=== PATIENT | male | born 1955 | race Caucasian/White ===

== ENCOUNTER → 2020-07-01 07:54 | Outpatient (CLI) | payer MEDICARE, SELFPAY ==
[2020-06-18 11:37] VITALS: BMI 42.9
[2020-07-01 10:02] LABS: AST(SGOT) 12 U/L (15-37); Alanine Aminotransfer ALT/SGPT 31 U/L (16-61); Albumin, Serum 4.2 g/dL (3.2-5.0); Alkaline Phosphatase 83 U/L (45-117); Bilirubin, Direct 0.13 mg/dL (0.00-0.30); Cholesterol 138 mg/dL (200); High Density Lipoprotein 35 mg/dL; Protein, Total 8.2 g/dL (6.4-8.2); Triglycerides 199 mg/dL; Very Low Density Lipoprotein 40 mg/dL (5-40)
== END ==
PROVIDERS: PCP Family Medicine; Referring Provider Internal Medicine Cardiovascular Disease; Visit Provider Internal Medicine Cardiovascular Disease
DX: E78.00 Pure hypercholesterolemia, unspecified (principal)
CPT/HCPCS: 36415; 80061; 80076

== ENCOUNTER → 2020-08-12 09:39 | Outpatient (CLI) | payer MEDICARE, OTHER, SELFPAY ==
[2020-06-18 11:37] VITALS: BMI 42.9
[2020-08-12 10:35] LABS: Absolute Lymphocyte Count 3.99 X10^3/uL (0.83-4.51); Absolute Neutrophil Count 6.8 X10^3/uL (2.0-7.7); Basophil# 0.08 X10^3/uL; Basophil% 0.7 % (0-1); Eosinophil# 0.26 X10^3/uL; Eosinophils% 2.2 % (0-5); Hematocrit 50.5 % (40-54); Hemoglobin 15.8 g/dL (13.0-16.5); Lymphocyte # 3.99 X10^3/ul (0.83-4.51); Lymphocyte % 33.6 % (19-41); Mean Corp Hgb Conc 31.3 g/dL (32-36); Mean Corpuscular Hgb 30.4 pg (27.0-32.0); Mean Corpuscular Volume 97.1 fL (80-94); Mean Platelet Vol. 10.8 fl (6.2-12.0); Monocyte# 0.72 X10^3/uL; Monocyte% 6.1 % (0-10); NRBC Flagged by Analyzer 0 % (0-5); Neutrophil # 6.78 X10^3/uL (2.7-7.7); Neutrophil % 57.1 % (47-70); Platelet Count 242 K/mm3 (150-450); RBC Distribution Width SD 51.1 fl (35.1-43.9); White Blood Count 11.9 K/mm3 (4.4-11.0)
[2020-08-12 11:19] LABS: Vitamin B12 577 pg/mL (211-911)
== END ==
PROVIDERS: PCP Family Medicine; Referring Provider Family Medicine; Visit Provider Family Medicine
DX: E53.8 Deficiency of other specified B group vitamins (principal)
CPT/HCPCS: 36415; 82607; 82746; 85025

== ENCOUNTER → 2020-10-08 13:36 | Outpatient (CLI) | payer MEDICARE, OTHER, SELFPAY ==
[2020-06-18 11:37] VITALS: BMI 42.9
--- NOTE | 2020-10-08 13:39 | RAD_ITS ---
STUDY: X-RAY - RIGHT SHOULDER REASON FOR EXAM: Male, 65 years old. Anterior right shoulder pain after falling one months ago TECHNIQUE: 4 view(s) of the shoulder. COMPARISON: None. FINDINGS: There is mild degenerative arthrosis of the glenohumeral articulation. There is minimal widening of the AC joint suggesting a Type I acromioclavicular joint separation. Normal acromion. Normal humeral head and visualized proximal humerus. The soft tissue structures are unremarkable. Normal visualized pulmonary apex. RAD/Shoulder min 2 Views IMPRESSION: Slight widening of the acromioclavicular joint could represent a type I separation. Electronically Signed: Johny Mcclendon MD ([place]) at 15:20 EDT , Service support ,
== END ==
PROVIDERS: PCP Family Medicine; Referring Provider Family Medicine; Visit Provider Family Medicine
DX: M75.51 Bursitis of right shoulder (principal)
CPT/HCPCS: 73030

== ENCOUNTER → 2020-10-29 14:15 | Outpatient (CLI) | payer MEDICARE, OTHER, SELFPAY ==
[2020-06-18 11:37] VITALS: BMI 42.9
[2020-10-29 16:07] LABS: Rheumatoid Factor < 10.0 IU/mL (<15)
[2020-10-29 16:22] LABS: Erythrocyte Sedimentation Rate 56 mm/hr (0-20)
[2020-11-02 07:24] LABS: ANTINUCLEAR ANTIBODIES DIRECT Negative (Negative); CCP IgG Antibodies < 1 units (0-19)
== END ==
PROVIDERS: PCP Family Medicine; Referring Provider Family Medicine; Visit Provider Family Medicine
DX: M25.50 Pain in unspecified joint (principal)
CPT/HCPCS: 36415; 85652; 86038; 86140; 86200; 86431

== ENCOUNTER → 2020-11-25 08:09 | Outpatient (CLI) | payer MEDICARE, OTHER, SELFPAY ==
[2020-06-18 11:37] VITALS: BMI 42.9
[2020-11-25 08:32] LABS: Absolute Lymphocyte Count 4.83 X10^3/uL (0.83-4.51); Absolute Neutrophil Count 5.9 X10^3/uL (2.0-7.7); Basophil# 0.08 X10^3/uL; Basophil% 0.7 % (0-1); Eosinophil# 0.29 X10^3/uL; Eosinophils% 2.5 % (0-5); Hematocrit 46.4 % (40-54); Hemoglobin 14.3 g/dL (13.0-16.5); Lymphocyte # 4.83 X10^3/ul (0.83-4.51); Lymphocyte % 40.9 % (19-41); Mean Corp Hgb Conc 30.8 g/dL (32-36); Mean Corpuscular Hgb 30.8 pg (27.0-32.0); Mean Corpuscular Volume 99.8 fL (80-94); Mean Platelet Vol. 10.6 fl (6.2-12.0); Monocyte# 0.67 X10^3/uL; Monocyte% 5.7 % (0-10); NRBC Flagged by Analyzer 0 % (0-5); Neutrophil % 49.9 % (47-70); Platelet Count 241 K/mm3 (150-450); RBC Distribution Width CV 14.7 % (11.6-14.6); RBC Distribution Width SD 54.1 fl (35.1-43.9); Red Blood Count 4.65 M/mm3 (4.6-6.2); White Blood Count 11.8 K/mm3 (4.4-11.0)
[2020-11-25 08:36] LABS: Erythrocyte Sedimentation Rate 52 mm/hr (0-20)
[2020-11-25 08:51] LABS: AST(SGOT) 13 U/L (15-37); Alanine Aminotransfer ALT/SGPT 23 U/L (16-61); Albumin, Serum 3.9 g/dL (3.2-5.0); Alkaline Phosphatase 93 U/L (45-117); Anion Gap 7 (5-15); BUN 24 mg/dL (7-18); BUN/Creat Ratio 15.3 RATIO (10-20); Calcium,Total 8.6 mg/dL (8.5-10.1); Chloride 105 mmol/L (98-107); Cholesterol 118 mg/dL (200); Creatinine, Serum 1.57 mg/dL (0.70-1.30); EST Glomerular Filtration Rate 47 mL/min (>60); Est Glom Filt Rate - Afr Amer 57 mL/min (>60); Globulin 3.8 g/dL (2.2-4.2); Glucose 148 mg/dL (74-106); High Density Lipoprotein 38 mg/dL; Potassium 4.2 mmol/L (3.5-5.1); Protein, Total 7.7 g/dL (6.4-8.2); Sodium Level 139 mmol/L (136-145); Triglycerides 165 mg/dL; Very Low Density Lipoprotein 33 mg/dL (5-40)
== END ==
PROVIDERS: PCP Family Medicine; Referring Provider Family Medicine; Visit Provider Family Medicine
DX: E11.9 Type 2 diabetes mellitus without complications (principal); I10 Essential (primary) hypertension; E78.5 Hyperlipidemia, unspecified; M25.50 Pain in unspecified joint
CPT/HCPCS: 36415; 80053; 80061; 85025; 85652; 86140

== ENCOUNTER 2020-12-16 13:36 | Emergency (ER) | payer MEDICARE, OTHER, SELFPAY ==
[2020-12-16 13:37] VITALS: BP 148/60; PULSE 74; RESP 16; TEMP 37.6; O2SAT 93; BMI 41.6
[2020-12-16 13:39] VITALS: BP 148/60; PULSE 74; RESP 16; TEMP 37.6; O2SAT 93
--- NOTE | 2020-12-16 13:40 | RAD_ITS ---
STUDY: X-RAY CHEST REASON FOR EXAM: Male, 65 years old. COUGH . Headaches and fever. TECHNIQUE: Single AP portable view of the chest. COMPARISON: None. FINDINGS: There is hyperinflation of the lungs consistent with chronic obstructive lung disease (COPD). There is no demonstrated pleural abnormality. Normal size heart. Calcified hilar lymph nodes. Normal visualized pulmonary arteries. Normal visualized aortic arch and descending thoracic aorta. Normal visualized thoracic spine. Normal visualized ribs, clavicles, and shoulders. There is no demonstrated abnormality of the visualized soft tissue structures of the upper abdomen. RAD/Chest 1 View IMPRESSION: Hyperinflation. The lungs are clear. Electronically Signed: Josh Alonso MD at 14:11 EDT , Service support ,
--- NOTE | 2020-12-16 16:28 | EDS_ITS ---
HPI HPI - URI History of Present Illness Chief Complaint: Cough Informant: patient Narrative Narrative: Patient is a 65-year-old male with history of COPD, DVT/PE, on Xarelto and coronary artery disease presenting with continued cough and fever. Patient states he woke up feeling short of breath on Monday, 4 days ago. He is continue to have a cough that is productive of yellow sputum. He is not wheezing. He has had body aches, runny nose and subjective fevers. His PCP called him in a prescription for amoxicillin which he states just caused him to have nausea and upset stomach. He denies any change in his bowel habits. He denies any sore throat, congestion or ear pain. Patient came in because his sister that he should get checked out just to be safe. No other complaints at this time. Patient has had his Covid vaccine. ROS [facility] ED Constitutional Constitutional ED: Reports fever(s) and subjective Eyes Eyes: Denies blurry vision or change in vision ENT ENT ED: Reports rhinorrhea; Denies ear pain or sore throat Cardiovascular Cardiovascular: Denies chest pain or palpitations Respiratory/Chest Respiratory/Chest: Reports cough, dyspnea and sputum Gastrointestinal Gastrointestinal: Reports nausea; Denies abdominal pain, diarrhea or vomiting Genitourinary Genitourinary ED: Denies dysuria Musculoskeletal Musculoskeletal: Reports myalgias; Denies arthralgias or neck pain Integumentary Denies rash Neurologic Neurologic: Denies headache(s) or weakness Psychiatric Psychiatric: Denies depression [facility] Medical History (Updated 12/16/20 @ 17:[address] Kristy Díaz, DO) Abnormal laboratory test Atherosclerotic heart disease of [place]o coronary artery without angina pectoris Benign essential HTN BPH (benign prostatic hyperplasia) CAD (coronary artery disease) Diabetic neuropathy DVT (deep venous thrombosis) GERD (gastroesophageal reflux disease) History of left heart catheterization (LHC) (~10/11/11) History of pulmonary embolism HLD (hyperlipidemia) Medical management Presence of stent in coronary artery (~02/09/11) Tobacco dependence in remission Type 2 diabetes mellitus Home Medications escitalopram oxalate 20 mg PO DAILY 01/31/13 [History Last Taken 12/08/14 20 MG] lansoprazole 30 mg PO DAILY 01/31/13 [History Last Taken 12/08/14 30 MG] rosuvastatin 40 mg PO DAILY 10/24/13 [History Last Taken 12/08/14 40 MG] vitamin B complex 1 ea PO DAILY 01/31/13 [History Last Taken 12/08/14 1 EACH] clopidogrel 75 mg PO DAILY #30 05/22/13 [Rx Last Taken 12/08/14 75 MG] amlodipine 10 mg tablet 10 mg PO DAILY 06/16/20 [History Last Taken Unknown] apixaban 5 mg tablet 5 mg PO BID 06/16/20 [History Last Taken Unknown] cyanocobalamin (vitamin B-12) 500 mcg tablet 500 mcg PO DAILY 06/16/20 [History Last Taken Unknown] empagliflozin 10 mg tablet 10 mg PO DAILY 06/16/20 [History Last Taken Unknown] furosemide 40 mg tablet 40 mg PO DAILY 06/16/20 [History Last Taken Unknown] gabapentin 300 mg capsule 300 mg PO .COMPLEX cap 06/16/20 [History Last Taken Unknown] insulin glargine 100 unit/mL (3 mL) subcutaneous pen 20 unit SC QPM ml 06/16/20 [History Last Taken Unknown] insulin lispro 100 unit/mL subcutaneous pen 8 unit SC TID 06/16/20 [History Last Taken Unknown] losartan 50 mg tablet 50 mg PO DAILY 06/16/20 [History Last Taken Unknown] metformin 1,000 mg tablet 1,000 mg PO BID 06/16/20 [History Last Taken Unknown] metoprolol succinate 50 mg tablet,extended release 24 hr 50 mg PO DAILY 06/16/20 [History Last Taken Unknown] tamsulosin 0.4 mg capsule 0.4 mg PO DAILY 06/16/20 [History Last Taken Unknown] albuterol sulfate [Ventolin HFA] 1 - 2 puff INHALATION Q4H PRN PRN #1 inh 12/16/20 [Rx Last Taken Unknown] benzonatate [Tessalon Perles] 100 mg PO TID PRN #20 cap 12/16/20 [Rx Last Taken Unknown] ondansetron HCl [Zofran] 4 mg PO Q8H PRN #14 tab 12/16/20 [Rx Last Taken Unknown] prednisone 40 mg PO DAILY #10 tab 12/16/20 [Rx Last Taken Unknown] Allergy/AdvReac Type Severity Reaction Status Date / Time diphenhydramine HCl Allergy Hives Verified 12/16/20 13:40 [From [facility]] Family History Other CVA (cerebral vascular accident) Heart disease Hypertension Myocardial infarction Surgical History History of bilateral cataract extraction History of bilateral knee replacement Hx of LASIK IVC filter removal Presence of coronary angioplasty implant and graft (~02/09/11) Social History Smoking Status: Former smoker alcohol intake: never substance use type: does not use caffeine: Yes Type: coffee Number of servings: 4 EXAM Physical Exam Const Vital Signs: 12/16/20 13:37 12/16/20 13:39 12/16/20 15:57 Temperature 99.6 F H 99.6 F H Temperature Source Temporal Temporal Pulse Rate 74 74 Respiratory Rate 16 16 Respiratory Effort Normal Respiratory Depth Normal Respiratory Pattern Normal Blood Pressure 148/60 H 148/60 H Blood Pressure Mean 89 89 Pulse Ox 93 93 Oxygen Delivery Method Room Air Room Air Positive well nourished and well developed General Appearance ED: well developed HEENT Reports moist mucous membranes normocephalic Tympanic Membrane ED: Yes TM's normal bilaterally Tympanic Membrane: TM's normal bilaterally Mouth ED: Yes moist mucous membranes normal Eyes PERRL and EOMs intact bilaterally General Eye ED: Yes normal appearance of both eyes Pupil: PERRL Neck supple and no JVD Lymph Lymphatic: no lymphadenopathy noted Chest Wall inspection of chest normal and palpation of chest normal Resp normal respiratory effort and normal air movement Auscultation: diminished lung sounds bilateral lower; Negative for rhonchi or wheezes Cardio regular rate, regular rhythm and no murmurs Rate: regular rate Rhythm: regular rhythm Peripheral Pulses: pulses 2+ throughout GI non-tender and non-distended Palpation: soft Back/Spine no CVA tenderness and normal to inspection Extremity normal to inspection and full ROM Neuro oriented x3, moves all extremities and no focal motor deficits Sensorium / Orientation: alert Psych mental status grossly normal and thought process normal Skin no rashes or lesions noted and no petechiae Rashes: no rashes MDM MDM MDM Narrative Medical decision making narrative: Patient evaluated for cough low-grade fever. He is already on amoxicillin. His Covid test is negative. He is well- appearing. Patient is ambulated to make sure he is not hypoxic. Suspect he has bronchitis secondary to viral illness. Given that he had a negative Covid I will presume it is another virus. He is otherwise well-appearing and I do not think blood work is indicated. Patient be started on a course of steroids and given Zofran so he can better tolerate his antibiotics. Lab Data Attestation: I reviewed the patient's lab results. Radiography Chest X-Ray - ED: 1 View, Read by ED Physician, Read by Radiologist and - (Hyperinflation, no acute infiltrate) Diagnostic Testing: Radiology Impression Chest X-Ray 12/16/20 13:40 IMPRESSION: Hyperinflation. The lungs are clear. Electronically Signed: Josh Alonso MD at 14:11 EDT , Service support , Discharge Plan Triage Chief Complaint: Cough ED Provider: Kristy Díaz Dx/Rx/DC Orders Clinical Impression: Bronchitis Instructions: ED Bronchitis with Wheezing (Adult) Prescriptions: New prednisone 20 mg tablet 40 mg PO DAILY Qty: 10 RF: 0 albuterol sulfate [Ventolin HFA] 90 mcg/actuation HFA aerosol inhaler 1 - 2 puff inhalation Q4H PRN PRN (Reason: Wheezing or cough) Qty: 1 RF: 0 benzonatate [Tessalon Perles] 100 mg capsule 100 mg PO TID PRN (Reason: cough) Qty: 20 RF: 0 ondansetron HCl [Zofran] 4 mg tablet 4 mg PO Q8H PRN (Reason: nausea and vomiting) Qty: 14 RF: 0 No Action Eliquis 5 mg tablet 5 mg PO BID RF: 0 tamsulosin 0.4 mg capsule 0.4 mg PO DAILY RF: 0 furosemide 40 mg tablet 40 mg PO DAILY RF: 0 gabapentin 300 mg capsule 300 mg PO .COMPLEX RF: 0 insulin lispro [Humalog KwikPen Insulin] 100 unit/mL insulin pen 8 unit SC TID RF: 0 Jardiance 10 mg tablet 10 mg PO DAILY RF: 0 Lantus Solostar U-100 Insulin 100 unit/mL (3 mL) insulin pen 20 unit SC QPM RF: 0 losartan 50 mg tablet 50 mg PO DAILY RF: 0 metoprolol succinate 50 mg tablet extended release 24 hr 50 mg PO DAILY RF: 0 amlodipine 10 mg tablet 10 mg PO DAILY RF: 0 metformin 1,000 mg tablet 1,000 mg PO BID RF: 0 cyanocobalamin (vitamin B-12) 500 mcg tablet 500 mcg PO DAILY RF: 0 lansoprazole 30 MG capsule 30 mg PO DAILY RF: 0 vitamin B complex 1 EACH capsule 1 ea PO DAILY RF: 0 escitalopram oxalate 20 MG tablet 20 mg PO DAILY RF: 0 rosuvastatin 40 MG tablet 40 mg PO DAILY RF: 0 clopidogrel 75 MG tablet 75 mg PO DAILY Qty: 30 RF: 0 Primary Care Provider: Fatoumata Red Referrals: Fatoumata Red MD [Primary Care Provider] - Disposition Disposition: Home, Self Care Discharge Date/Time: 12/16/20 17:42
[2020-12-16 17:14] VITALS: O2SAT 93
== END 2020-12-16 17:42 | disposition home or self-care (01) ==
PROVIDERS: Emergency Provider Emergency Medicine; PCP Family Medicine
DX: J40 Bronchitis, not specified as acute or chronic (principal); Z20.822 Contact with and (suspected) exposure to COVID-19; J44.9 Chronic obstructive pulmonary disease, unspecified; I25.10 Atherosclerotic heart disease of native coronary artery without angina pectoris; E11.9 Type 2 diabetes mellitus without complications; I10 Essential (primary) hypertension; E78.5 Hyperlipidemia, unspecified; K21.9 Gastro-esophageal reflux disease without esophagitis; N40.0 Benign prostatic hyperplasia without lower urinary tract symptoms; Z79.01 Long term (current) use of anticoagulants; Z79.02 Long term (current) use of antithrombotics/antiplatelets; Z79.4 Long term (current) use of insulin; Z79.52 Long term (current) use of systemic steroids; Z79.899 Other long term (current) drug therapy; Z86.718 Personal history of other venous thrombosis and embolism; Z86.711 Personal history of pulmonary embolism; Z87.891 Personal history of nicotine dependence; Z96.653 Presence of artificial knee joint, bilateral; Z95.5 Presence of coronary angioplasty implant and graft
CPT/HCPCS: 71045; 87426; 99282

== ENCOUNTER 2021-06-23 07:34 | Outpatient (CLI) | payer BC, SELFPAY ==
[2021-06-23] VITALS (9 sets, daily range): BP systolic 116–188; BP diastolic 49–78; PULSE 59–68; RESP 17–21; TEMP 36.6; O2SAT 91–98; BMI 41.6
--- NOTE | 2021-06-23 | IMM_PTH ---
PATIENT: SHELBI GARCIA LOC: CT U#:[id number] AGE/SX: 66/M ROOM: RE06/23/[address]: Dr. Jp Denis DO : 1955 BED: DIS: 06/23/2021 SPEC #: [id number] RECD: 06/24/21 13:19 STATUS: CARLIE RELauren #: [id number] DAY: 06/23/21 00:[address]: Jp Denis DEPT: IMMUNOHISTOCHEMISTRY RECD BY: Angie Ann ENTERED: 06/24/21 13:22 SP TYPE: IMMUNO OTHR DR: Dr. Fatoumata Red MD Tissues: A - Bone marrow of iliac crest Procedures: BCL-2 (add) CD10 (add) CD138 (add) CD20 (add) CD3 (add) CD43 (add) CD45 (add) CD5 (add) CD79A (add) KAPPA (add) LAMBDA (add) Pankeratin (initial) PHYSICIAN & [address] [address] SPECIMEN INFORMATION: Tissue Source: A ? Bone marrow biopsy core Clinical Info: IgA lambda monoclonal gammopathy Specimen Number: [id number] CPT code: 36317, 69034 x11 METHODOLOGY: Deparaffinized sections of prefer/formalin-fixed tissue or PAP/DQ stained slides are incubated with monoclonal/polyclonal antibodies/oligonucleotide probes. Localization is made via biotin free immunoperoxidase method. Appropriate controls are performed and reacted as expected. Results on target cell population are indicated in the following table: RESULTS: ANTIBODY / CLONE RESULT Block A AE1-3 (AE1/AE3/PCK26) negative CD3 (PS1) negative CD5 (SP10) negative CD10 (56C6) negative CD20 (L26) negative CD43 (L60) positive CD45 (RP2/18) negative CD79a (11E3) negative CD138 (B-A38) positive [place] (polyclonal) negative Lambda (polyclonal) positive BCL-2 (bcl-2/100/D5) negative These tests were developed and their performance characteristics determined by [facility]. They may not have been cleared or approved by the U.S. Food and Drug Administration. The FDA has determined that such clearance or approval is not necessary. The above immunohistochemical/dualISH markers are ordered and reviewed by the Pathologist. INTERPRETATION: A. Bone marrow biopsy core: Increased lambda restricted plasma cell population consistent with plasma cell neoplasm. AM:reina 06/28/2021 Case has been reviewed in consultation with Dr. Cazares who concurs with the above diagnosis. IDC:SJ
[2021-06-23 07:55] LABS: Platelet Count 217 K/mm3 (150-450)
[2021-06-23 08:07] LABS: International Normalized Ratio 0.9; Prothrombin Time (Protime)PT. 11.9 SECONDS (11.7-14.9)
[2021-06-23 08:08] LABS: Partial Thromboplast Time 27.9 Seconds (24.1-36.2)
--- NOTE | 2021-06-23 08:09 | CT_ITS ---
PROCEDURE: CT-guided percutaneous bone marrow biopsy/aspiration DATE OF EXAMINATION: 06/23/2021 INDICATION: Male, 66 years old presenting with concerns for monoclonal gammopathy. PHYSICIAN: Dr. Yehuda Lomeli RADIATION DOSAGE (If Supplied By Facility): SMART step accumulated DLP = ( 474.68 ) mGycm, total exam DLP = ( 1059.92 ) mGycm CONSENT: The risks, benefits and alternatives to the procedure were explained to the patient, and the patient agreed to the procedure and signed the consent. SEDATION: 1 mg VERSED. 50 mcg of FENTANYL. LIDOCAINE: 8 cc of 2% LIDOCAINE was used for local anesthesia. STERILE BARRIER TECHNIQUE: The following sterile barrier precautions were used during the procedure: hand hygiene; use of IODINE and 2% chlorhexidine aseptic; use of a mask, sterile gloves, and a large sterile sheet. PROCEDURE/TECHNIQUE: (All elements of maximal sterile barrier technique followed.) The risks, benefits, and alternatives to the procedure were explained to patient, and the patient agreed to the procedure and signed a consent form for the procedure. A timeout was performed to confirm the patient''s identity, the type of procedure, to be performed and the site of entry. English Professor CT was performed and a site in the right ischial tuberosity was selected for needle entry. The skin surface was marked. The surface was then sterilely prepped. Local anesthetic with LIDOCAINE was administered with a 25-gauge needle. Deeper anesthetic to the cortex of the bone with was LIDOCAINE was administered with a 25-gauge spinal needle. A skin devyn was then made using a scalpel. An 11-gauge bone marrow biopsy needle was then guided to the right initial tuberosity utilizing CT guidance. The needle was advanced into the bone marrow and the inner stylet was removed. 3 to 4 cc of blood was aspirated. Additional 3 to 4 cc of blood was aspirated into a syringe containing approximately 2 cc of HEPARIN. The biopsy trocar was then advanced and withdrawn. Adequate core sample was not obtained on first attempt so the needle was repositioned in the right initial tuberosity. Second attempt yielded adequate 11-gauge core sample. Pressure was applied to the skin surface and dressing was applied. There were no complications. The patient tolerated the procedure well and was sent to recovery bay for observation. SAMPLES: A total of 7-8 cc of blood was aspirated from the bone marrow. 11-gauge core sample was also obtained. Adequacy of samples was confirmed by on-site pathology. COMPLICATIONS: None. BLOOD LOSS: None. SEDATION START TIME/STOP TIME: 9:03 AM. 10:[address]/Biopsy/Inj or Needle Placement IMPRESSION: Successful percutaneous CT-guided bone marrow biopsy. Electronically Signed: Yehuda Lomeli, at 11:17 EDT ,
--- NOTE | 2021-06-23 09:00 | BMB_PTH ---
PATIENT: SHELBI GARCIA LOC: CT U#:[id number] AGE/SX: 66/M ROOM: RE06/23/[address]: Dr. Jp Denis DO : 1955 BED: DIS: 06/23/2021 SPEC #: [id number] RECD: 06/23/21 11:26 STATUS: CARLIE YESSENIA #: [id number] DAY: 06/23/21 09:[address]: Jp Denis DEPT: BONE MARROW RECD BY: Leslye Villatoro ENTERED: 06/23/21 11:26 SP TYPE: BMB NATASHA DR: Dr. Fatoumata Red MD Tissues: A - Bone marrow, NOS B - Bone marrow, NOS C - Bone marrow, NOS Procedures: Decalcification bone/plaque Bone Marrow Aspiration Bone Marrow Core Biopsy Iron Stain Bone Marrow HEADER OPERATION: Bone marrow biopsy and aspiration PRE-OP DIAGNOSIS: IgA lambda monoclonal gammopathy TISSUE SUBMITTED: A - Core, B - Clot, C - Smears, and send outs (flow, cytogenetics and FISH) BONE MARROW DIAGNOSIS Bone marrow core, clot and aspirate smears: Clonal plasma cell population consistent with plasma cell neoplasm. See comment. AM:reina 06/28/2021 COMMENT Flow cytometry analysis reveals clonal plasma cell population comprising approximately 15% of the cellular component. The neoplasm is lambda restricted and IgA positive. The report is viewable in EMR. Immunohistochemistry ([id number]) supports the above diagnosis. Case has been reviewed in consultation with Dr. Cazares who concurs with the above diagnosis. IDC:SJ BONE MARROW STUDY Slides are reviewed. CBC DATE: Not submitted PERIPHERAL SMEAR: Submitted. RBC: Normochromic WBC: Normomorphic PLTS: Adequate BONE MARROW ASPIRATE DIFFERENTIAL: 200 cell count. Blasts % (normal 0-2): 2 Promyelocytes % (normal 1-5): 2 Myelocytes and metamyelocytes % (normal 17-41): 20 Bands and Segs % (normal 15-32): 25 Eos % (normal 1-6): 2 Basos % (normal 0-1): 1 Monocytes % (normal 0-4): 1 Erythroid Precursors % (normal 17-35): 24 Lymphocytes % (normal 7-13): 12 Plasma Cells % (normal 0-2): 11 ASPIRATE FINDINGS: Site: Not specified Paucispicular Cellular M/E ratio: 2.2 (Normal 1.5 - 4.0) Megakaryocytes: Adequate Erythropoiesis: Normoblastic Granulopoiesis: Progressive Other findings: Increased mature plasma cells CORE BIOPSY FINDINGS: Site: Not specified Adequacy: Adequate Cellularity %: 45% M/E ratio: Within normal limits Megakaryocytes: Adequate Bony trabeculae: Unremarkable Granulomas: Not present Lymphoid aggregate(s): Not present Atypical infiltrate(s): Increased mature plasma cells ASPIRATE CLOT FINDINGS: Site: Not specified Marrow Particles: Many Cellularity %: 45-50% M/E ratio: Within normal limits Megakaryocytes: Adequate Granuloma(s): Not present Lymphoid aggregate(s): Not present Atypical infiltrate(s): Increased mature plasma cells SPECIAL STAINS (with matched controls): Iron: Stainable iron present (4/4) without ring sideroblasts Reticulin: Within normal limits PAS: Highlights myeloid elements and megakaryocytes. BONE MARROW GROSS A - Received is a container labeled with the patient's name and designated bone marrow. The specimen consists of a cylindrical fragment of wahl bone measuring 1.2 x 0.2 x 0.2 cm. The specimen is totally submitted in one cassette after decalcification. B - Received labeled with the patient's name and designated bone marrow is a specimen that consists of approximately 5 ml of reddish fluid that on filtration yields multiple irregular fragments of red-wahl soft tissue measuring in aggregate 2 x 2 x 0.2 cm. The specimen is totally submitted in one cassette. C - Also received are 8 unstained and 1 peripheral stained slides. The unstained slides are submitted for appropriate staining. Also received is one green top tube which is sent to our reference lab for flow, cytogenetics and FISH. / AM:reina 06/23/2021 TC:0 CPT: 00383, 59289, 42597 x2, 91736 x3, 09587 ADDENDUM ADDENDUM ADDENDUM ADDENDUM ADDENDUM ADDENDUM ADDENDUM ADDENDUM ADDENDUM ADDENDUM ADDENDUM ADDENDUM ADDENDUM ADDENDUM ADDENDUM ADDENDUM ADDENDUM ADDENDUM ADDENDUM 07/07/2021 09:36 ADDENDUM 07/07/2021 09:36 ADDENDUM 07/07/2021 09:36 ADDENDUM 07/07/2021 09:36 ADDENDUM 07/07/2021 09:36 FLUORESCENCE IN-SITU HYBRIDIZATION (FISH) FROM [facility] MYELOMA PROGNOSIS INTERPRETATION: 1. No evidence of IGH-MAF [translocation t(14;16)] gene rearrangement. 2. No evidence of RB1 monosomy (13q14 deletion). 3. No evidence of CCND1-IGH [translocation t(11;14)] gene rearrangement, and no evidence for trisomy 11 or gain of 11q. 4. No evidence of p53 (17p13) deletion or amplification. 5. No evidence of FGFR3-IGH [translocation t(4;14)] gene rearrangement. 6. Negative for 1q21/CKS1B gain. CYTOGENETICS REPORT FROM [facility] INTERPRETATION: A normal male karyotype was observed in twenty metaphases analyzed. Karyotype: 46,XY[22] Please see complete report in e-chart or EMR
[2021-06-23] MEDS: Midazolam 2 MG/2 ML Syringe IV (09:03)
[2021-06-23] MEDS: Lidocaine 2% (20 ml mdv) 20 ML Vial INFILT (09:03)
[2021-06-23] MEDS: fentaNYL 100 MCG/2 ML Ampul IV (09:04)
[2021-06-23] MEDS: 0.9% Saline Lock 10 ML Syringe IV (09:07)
== END 2021-06-23 23:59 | disposition home or self-care (01) ==
PROVIDERS: PCP Family Medicine; Referring Provider Internal Medicine Hematology & Oncology; Visit Provider Internal Medicine Hematology & Oncology
DX: D47.2 Monoclonal gammopathy (principal); M06.9 Rheumatoid arthritis, unspecified; I48.91 Unspecified atrial fibrillation; E11.9 Type 2 diabetes mellitus without complications; N18.9 Chronic kidney disease, unspecified; I25.10 Atherosclerotic heart disease of native coronary artery without angina pectoris; Z79.82 Long term (current) use of aspirin; Z79.02 Long term (current) use of antithrombotics/antiplatelets; Z79.899 Other long term (current) drug therapy; I25.2 Old myocardial infarction; Z86.718 Personal history of other venous thrombosis and embolism; Z95.5 Presence of coronary angioplasty implant and graft
CPT/HCPCS: 38222; 36415; 77012; 85049; 85610; 85730; 88305; 88311; 88313; 88341; 88342; 99156; 99157; J7040; A4216

== ENCOUNTER 2021-07-15 10:43 | Outpatient (CLI) | payer MEDICARE, SELFPAY ==
[2021-07-15 12:27] LABS: AST(SGOT) 48 U/L (15-37); Alanine Aminotransfer ALT/SGPT 142 U/L (16-61); Albumin, Serum 3.7 g/dL (3.2-5.0); Alkaline Phosphatase 92 U/L (45-117); Bilirubin, Direct 0.18 mg/dL (0.00-0.30); Cholesterol 63 mg/dL (200); Creatinine, Serum 1.83 mg/dL (0.70-1.30); EST Glomerular Filtration Rate 39 mL/min (>60); Est Glom Filt Rate - Afr Amer 48 mL/min (>60); Globulin 3.8 g/dL (2.2-4.2); High Density Lipoprotein 30 mg/dL; Protein, Total 7.5 g/dL (6.4-8.2); Triglycerides 93 mg/dL; Very Low Density Lipoprotein 19 mg/dL (5-40)
== END 2021-07-15 23:59 | disposition home or self-care (01) ==
PROVIDERS: Internal Medicine Cardiovascular Disease; PCP Family Medicine; Visit Provider Internal Medicine Rheumatology
DX: N28.9 Disorder of kidney and ureter, unspecified (principal); E78.00 Pure hypercholesterolemia, unspecified; E78.5 Hyperlipidemia, unspecified
CPT/HCPCS: 36415; 80061; 80076; 82565

== ENCOUNTER → 2021-09-02 | Outpatient (CLI) | payer MEDICARE, SELFPAY ==
[2021-09-02 12:42] LABS: Protein, Urine (Random) 15.7 mg/dL (<11.9); Protein:Creat Ratio 200 mg/g CRE (0-200)
== END | disposition home or self-care (01) ==
LOC: LABSPEC 11:22
PROVIDERS: PCP Family Medicine; Visit Provider Internal Medicine Nephrology
DX: N17.9 Acute kidney failure, unspecified (principal); N18.9 Chronic kidney disease, unspecified
CPT/HCPCS: 82570; 84156

== ENCOUNTER → 2021-09-10 | Outpatient (CLI) | payer MEDICARE, SELFPAY ==
[2021-09-10 12:41] LABS: BUN 22 mg/dL (7-18); BUN/Creat Ratio 13.1 RATIO (10-20); Calcium,Total 8.6 mg/dL (8.5-10.1); Chloride 104 mmol/L (98-107); Creatinine, Serum 1.68 mg/dL (0.70-1.30); EST Glomerular Filtration Rate 43 mL/min (>60); Est Glom Filt Rate - Afr Amer 53 mL/min (>60); Glucose 217 mg/dL (74-106); Phosphorus 3.5 mg/dL (2.5-4.9); Potassium 4.6 mmol/L (3.5-5.1); Sodium Level 137 mmol/L (136-145)
== END | disposition home or self-care (01) ==
LOC: POLAB3 10:53
PROVIDERS: PCP Family Medicine; Visit Provider Internal Medicine Nephrology
DX: N18.31 Chronic kidney disease, stage 3a (principal); N17.9 Acute kidney failure, unspecified
CPT/HCPCS: 36415; 80069

== ENCOUNTER → 2021-09-10 | Outpatient (CLI) | payer MEDICARE, SELFPAY ==
--- NOTE | 2021-09-10 10:58 | US_ITS ---
STUDY: RENAL ULTRASOUND - COMPLETE REASON FOR EXAM: Male, 66 years old. ACUTE ON CHRONIC KIDNEY FAILURE TECHNIQUE: Ultrasound evaluation of the kidneys was performed with real-time and static kitchen-scale imaging. COMPARISON: Comparison is made with prior ultrasound of the kidneys dated 12/16/2014. FINDINGS: RIGHT KIDNEY: Normal location of the right kidney, which is normal in size. The right kidney measures 10.6 cm x 5.1 cm x 4.8 cm. There is a normal cortex of the right kidney. The renal cortex measures 1.3 cm. There is no right renal mass or cyst. There are no right renal calculi. There is no right hydronephrosis. DISTAL RIGHT URETER: There is non-visualization of the distal right ureter. There is no demonstrated right ureterovesical junction calculus. There is a visualized right ureteral jet. LEFT KIDNEY: Normal location of the left kidney, which is normal in size. The left kidney measures 10.8 cm x 5.7 cm x 5.3 cm. There is a normal cortex of the left kidney. The renal cortex measures 1.4 cm. There is no left renal mass or cyst. There are no left renal calculi. There is no left hydronephrosis. DISTAL LEFT URETER: There is non-visualization of the distal left ureter. There is no demonstrated left ureterovesical junction calculus. There is a visualized left ureteral jet. BLADDER: The distended urinary bladder has a volume of 338 ml. There is a normal wall thickness of the distended urinary bladder. There is no demonstrated mass within the urinary bladder. There are no demonstrated bladder calculi. US/Kidney and Bladder IMPRESSION: Normal ultrasound of the kidneys and urinary bladder. Electronically Signed: Josh Alonso MD at 13:03 EDT ,
== END | disposition home or self-care (01) ==
LOC: US 10:57
PROVIDERS: PCP Family Medicine; Referring Provider Internal Medicine Nephrology; Visit Provider Internal Medicine Nephrology
DX: N17.9 Acute kidney failure, unspecified (principal); N18.31 Chronic kidney disease, stage 3a
CPT/HCPCS: 36415; 76770; 80069

== ENCOUNTER → 2022-01-05 | Outpatient (CLI) | payer MEDICARE, SELFPAY ==
--- NOTE | 2022-01-05 09:42 | CDU_ITS ---
Reason For Study: Dizziness Rt. Velocities/BP Lt. Velocities/BP Prox CCA 81.5/12.6 cm/sec. Prox CCA 99.8/12.6 cm/sec. Mid CCA 80.6/11.6 cm/sec. Mid CCA 98.6/20 cm/sec. Dist CCA 74.9/12.6 cm/sec. Dist CCA 77.7/13.9 cm/sec. Prox ICA 74/13.9 cm/sec. Prox ICA 60.8/13.3 cm/sec. Mid ICA 77.7/15.1 cm/sec. Mid ICA 86.4/20.6 cm/sec. Dist ICA 75.3/16.3 cm/sec. Dist ICA 93.7/20.6 cm/sec. Rt. ICA/CCA = 0.96. Lt. ICA/CCA = 0.95. Prox ECA 117/9 cm/sec. Prox ECA 145.5/9.4 cm/sec. Rt. Vert. 31.1/6.5 cm/sec. Lt. Vert. 35.2/11.6 cm/sec. Right Extracranial There is intimal thickening but no significant atherosclerotic plaque noted in the right common carotid artery. There is heterogeneous, irregular atherosclerotic plaque noted in the right internal carotid artery. There is intimal thickening but no significant atherosclerotic plaque noted in the right external carotid artery. Antegrade flow is noted in the right vertebral artery. Left Extracranial There is intimal thickening but no significant atherosclerotic plaque noted in the left common carotid artery. There is heterogeneous, smooth atherosclerotic plaque noted in the left internal carotid artery. There is intimal thickening but no significant atherosclerotic plaque noted in the left external carotid artery. Antegrade flow is noted in the left vertebral artery. Procedure Carotid Duplex 28722. This is a Carotid Duplex examination using B-mode, color flow and specral Doppler. Exam performed in department. VL/Carotid Duplex Ultrasound Interpretation Summary Mild (<50%) stenosis right extracranial internal carotid. Mild (<50%) stenosis left extracranial internal carotid. Patent and antegrade vertebrals bilaterally. Ordering Physician: Colton Schroeder Referring Physician: Fatoumata Red Performed By: Sherita Grande RVT
== END | disposition home or self-care (01) ==
LOC: CVS 09:40
PROVIDERS: PCP Family Medicine; Referring Provider Nurse Practitioner Family; Visit Provider Nurse Practitioner Family
DX: I65.22 Occlusion and stenosis of left carotid artery (principal); R42 Dizziness and giddiness
CPT/HCPCS: 93880

== ENCOUNTER → 2023-01-13 | Outpatient (CLI) | payer MEDICARE, SELFPAY ==
[2023-01-13 09:07] LABS: Absolute Lymphocyte Count 2.43 X10^3/uL (0.83-4.51); Absolute Neutrophil Count 4.6 X10^3/uL (2.0-7.7); Basophil# 0.06 X10^3/uL; Basophil% 0.8 % (0-1); Eosinophil# 0.19 X10^3/uL; Eosinophils% 2.4 % (0-5); Hematocrit 46.2 % (40-54); Hemoglobin 14.7 g/dL (13.0-16.5); Lymphocyte # 2.43 X10^3/ul (0.83-4.51); Lymphocyte % 31.2 % (19-41); Mean Corp Hgb Conc 31.8 g/dL (32-36); Mean Corpuscular Hgb 30.9 pg (27.0-32.0); Mean Corpuscular Volume 97.3 fL (80-94); Mean Platelet Vol. 10.9 fl (6.2-12.0); Monocyte# 0.51 X10^3/uL; Monocyte% 6.6 % (0-10); NRBC Flagged by Analyzer 0 % (0-5); Neutrophil # 4.57 X10^3/uL (2.7-7.7); Neutrophil % 58.7 % (47-70); Platelet Count 216 K/mm3 (150-450); RBC Distribution Width CV 13.8 % (11.6-14.6); RBC Distribution Width SD 50.3 fl (35.1-43.9); Red Blood Count 4.75 M/mm3 (4.6-6.2); White Blood Count 7.8 K/mm3 (4.4-11.0)
[2023-01-13 09:34] LABS: Protein, Urine (Random) 9.8 mg/dL (<11.9); Protein:Creat Ratio 231 mg/g CRE (0-200)
[2023-01-13 09:36] LABS: ALB/GLOB Ratio 0.9 RATIO (0.9-2.4); AST(SGOT) 10 U/L (15-37); Alanine Aminotransfer ALT/SGPT 19 U/L (16-61); Albumin, Serum 3.5 g/dL (3.2-5.0); Alkaline Phosphatase 98 U/L (45-117); Anion Gap 6 (5-15); BUN 33 mg/dL (7-18); BUN/Creat Ratio 20.4 RATIO (10-20); Calcium,Total 8.7 mg/dL (8.5-10.1); Chloride 107 mmol/L (98-107); Cholesterol 104 mg/dL (200); Creatinine, Serum 1.62 mg/dL (0.70-1.30); EST Glomerular Filtration Rate 45 mL/min (>60); Est Glom Filt Rate - Afr Amer 55 mL/min (>60); Glucose 189 mg/dL (74-106); High Density Lipoprotein 36 mg/dL; Potassium 3.9 mmol/L (3.5-5.1); Protein, Total 7.5 g/dL (6.4-8.2); Sodium Level 138 mmol/L (136-145); Triglycerides 100 mg/dL; Very Low Density Lipoprotein 20 mg/dL (5-40)
[2023-01-13 09:39] LABS: Hemoglobin A1c 6.9 % (3.8-5.6)
== END | disposition home or self-care (01) ==
LOC: LAB 08:16
PROVIDERS: PCP Family Medicine; Referring Provider Family Medicine; Visit Provider Family Medicine
DX: Z00.00 Encounter for general adult medical examination without abnormal findings (principal); E11.22 Type 2 diabetes mellitus with diabetic chronic kidney disease; N18.30 Chronic kidney disease, stage 3 unspecified; I25.10 Atherosclerotic heart disease of native coronary artery without angina pectoris; E78.5 Hyperlipidemia, unspecified
CPT/HCPCS: 36415; 80053; 80061; 82570; 83036; 84156; 85025

== ENCOUNTER → 2023-01-27 | Outpatient (CLI) | payer MEDICARE, SELFPAY ==
--- NOTE | 2023-01-27 09:41 | NM_ITS ---
CLINICAL: Male, 67 years old. ARTIFICIAL KNEE JOINTS (20 YEARS AGO), PAIN BILATERAL PROXIMAL TIBIAS WHOLE BODY NUCLEAR BONE SCAN TECHNIQUE: Following the IV administration of 25.4 mCi of Tc MDP, whole body bone imaging was performed with a gamma camera following a three hour delay. Bone flow and blood pool imaging performed of the knees. COMPARISON STUDIES : NM - None. CR - Not available for review at this time. CT - Not available for review at this time. MR - Not available for review at this time. US - Not available for review at this time. FINDINGS: Bone flow and blood flow imaging of the bilateral knees normal except for photopenic defects of the bilateral knees correlating to the replacements. Expected distribution around both knees without unexpected increased or decreased foci. On delayed imaging, continued, expected appearance of knee replacements. Isotope distribution is otherwise normal through the axial and visualized appendicular skeleton. NM/Bone Scan Whole Body IMPRESSION: 1. Normal, expected three-phase imaging of bilateral knees following knee replacement. 2. Whole body bone scan is unremarkable. Electronically Signed: Johny Mcclendon MD ([place]) at 14:36 EDT Reading Location ID and State: [id number] [place] , Service support ,
== END | disposition home or self-care (01) ==
LOC: NM 09:39
PROVIDERS: PCP Family Medicine; Referring Provider Orthopaedic Surgery; Visit Provider Orthopaedic Surgery
DX: T84.84XA Pain due to internal orthopedic prosthetic devices, implants and grafts, initial encounter (principal); Z96.651 Presence of right artificial knee joint; X58.XXXA Exposure to other specified factors, initial encounter
CPT/HCPCS: 78306; A9503

== ENCOUNTER → 2023-02-01 | Outpatient (CLI) | payer MEDICARE, SELFPAY ==
[2023-02-01 09:44] LABS: Erythrocyte Sedimentation Rate 63 mm/hr (0-20)
[2023-02-01 09:46] LABS: Absolute Lymphocyte Count 4.13 X10^3/uL (0.83-4.51); Absolute Neutrophil Count 4.2 X10^3/uL (2.0-7.7); Basophil# 0.06 X10^3/uL; Basophil% 0.6 % (0-1); Eosinophil# 0.24 X10^3/uL; Eosinophils% 2.6 % (0-5); Hematocrit 46.9 % (40-54); Hemoglobin 14.6 g/dL (13.0-16.5); Lymphocyte # 4.13 X10^3/ul (0.83-4.51); Lymphocyte % 44.6 % (19-41); Mean Corp Hgb Conc 31.1 g/dL (32-36); Mean Corpuscular Hgb 30.2 pg (27.0-32.0); Mean Corpuscular Volume 97.1 fL (80-94); Mean Platelet Vol. 11.2 fl (6.2-12.0); Monocyte# 0.58 X10^3/uL; Monocyte% 6.3 % (0-10); NRBC Flagged by Analyzer 0 % (0-5); Neutrophil # 4.22 X10^3/uL (2.7-7.7); Neutrophil % 45.6 % (47-70); Platelet Count 194 K/mm3 (150-450); RBC Distribution Width CV 14.2 % (11.6-14.6); RBC Distribution Width SD 51.3 fl (35.1-43.9); Red Blood Count 4.83 M/mm3 (4.6-6.2); White Blood Count 9.3 K/mm3 (4.4-11.0)
[2023-02-01 09:59] LABS: CRP 8.48 mg/L (0.0-3.0)
== END | disposition home or self-care (01) ==
LOC: LAB 09:05
PROVIDERS: PCP Family Medicine; Visit Provider Orthopaedic Surgery
DX: M25.562 Pain in left knee (principal); M25.561 Pain in right knee; Z96.653 Presence of artificial knee joint, bilateral
CPT/HCPCS: 36415; 85025; 85652; 86140

== ENCOUNTER → 2023-02-15 | Outpatient (CLI) | payer MEDICARE, SELFPAY ==
--- NOTE | 2023-02-19 11:22 | STRESSREP ---
Stress Test Report Date: 02/15/2023 Procedure: Pharmacologic stress nuclear imaging study Indications: CAD Consent: Per the patient Procedure: The patient underwent pharmacologic (Regadenoson) evaluation with a peak heart rate of 70 beats per minute (46%predicted maximal heart rate) and a peak blood pressure of 130/70 mmHg. The baseline ECG demonstrated normal sinus rhythm. EKG during lexiscan infusion revealed no significant ischemic changes. EKG post infusion revealed no significant ischemic changes [There were no cardiac dysrhythmias pretest, during pharmacologic infusion, or recovery]. [There was no complaint of chest discomfort during pharmacologic infusion or recovery]. The examination was discontinued secondary to completion of protocol. Impression: 1. Lexiscan stress test test is negative for Lexiscan infusion induced EKG changes of ischemia. 2. Lexiscan stress test test is negative for Lexiscan infusion induced chest pain. 3. Results of the nuclear portion of the test is as below Myocardial perfusion imaging study: Technique: The patient was injected with 14.6 millicuries of technetium 99m Cardiolite and subsequently rest SPECT Cardiolite nuclear imaging was obtained in the horizontal long, vertical long, and short axis views. The patient underwent pharmacologic [Regadenoson 0.4mg] evaluation. Please see above for details. The patient was injected with 44.7 millicuries of technetium 99m Cardiolite and subsequently stress SPECT Cardiolite nuclear imaging was obtained in the horizontal long, vertical long, and short axis views. A gated Cardiolite study at peak stress was obtained. Interpretation: Rest and stress SPECT Cardiolite nuclear imaging status post realignment, normalization, and attenuation correction demonstrate mild apical defect that was present on the stress images but not present on the rest images suggestive of apical ischemia. There is also evidence of diaphragmatic attenuation artifact. Gated images reveal no significant regional wall motion abnormalities. The reported LVEF is 64%. Impression: 1. There is evidence of mild apical ischemia. 2. Estimated ejection fraction is 64%. This note was generated with [employer] software. It may contain incorrect words, spelling, and punctuation that were not noted in checking the note before signing.
== END | disposition home or self-care (01) ==
LOC: CVS 06:36
PROVIDERS: PCP Family Medicine; Referring Provider Nurse Practitioner Gerontology; Visit Provider Nurse Practitioner Gerontology
DX: I25.10 Atherosclerotic heart disease of native coronary artery without angina pectoris (principal); Z95.5 Presence of coronary angioplasty implant and graft
CPT/HCPCS: 78452; 93017; A9500; A4216; J2785

== ENCOUNTER 2023-03-14 07:50 | Day surgery (SDC) | payer MEDICARE, SELFPAY ==
--- NOTE | 2023-03-06 09:52 | RAD_ITS ---
STUDY: X-RAY CHEST REASON FOR EXAM: Male, 67 years old. Abnormal stress test. TECHNIQUE: Frontal and lateral views of the chest. COMPARISON: December 16, 2020. FINDINGS: Stable mild hyperinflation. There is no demonstrated pleural abnormality. Normal size heart. Normal mediastinum and joelle. Normal visualized pulmonary arteries. Normal visualized aortic arch and descending thoracic aorta. Normal visualized thoracic spine. Normal visualized ribs, clavicles, and shoulders. No abnormality of the visualized soft tissue structures of the upper abdomen. RAD/Chest PA and Lateral IMPRESSION: Stable hyperinflation with no acute or active cardiopulmonary disease. Electronically Signed: Francisco Merrill MD at 10:19 [facility] ,
[2023-03-06 11:09] LABS: Absolute Lymphocyte Count 4.78 X10^3/uL (0.83-4.51); Absolute Neutrophil Count 3.9 X10^3/uL (2.0-7.7); Basophil# 0.06 X10^3/uL; Basophil% 0.6 % (0-1); Eosinophil# 0.28 X10^3/uL; Eosinophils% 2.9 % (0-5); Hemoglobin 15.1 g/dL (13.0-16.5); Lymphocyte # 4.78 X10^3/ul (0.83-4.51); Lymphocyte % 50.3 % (19-41); Mean Corp Hgb Conc 31.5 g/dL (32-36); Mean Corpuscular Hgb 30.3 pg (27.0-32.0); Mean Corpuscular Volume 96.4 fL (80-94); Mean Platelet Vol. 11.2 fl (6.2-12.0); Monocyte# 0.45 X10^3/uL; Monocyte% 4.7 % (0-10); NRBC Flagged by Analyzer 0 % (0-5); Neutrophil # 3.93 X10^3/uL (2.7-7.7); Neutrophil % 41.4 % (47-70); Platelet Count 183 K/mm3 (150-450); RBC Distribution Width CV 13.8 % (11.6-14.6); RBC Distribution Width SD 49.2 fl (35.1-43.9); Red Blood Count 4.98 M/mm3 (4.6-6.2); White Blood Count 9.5 K/mm3 (4.4-11.0)
[2023-03-06 11:33] LABS: Anion Gap 4 (5-15); BUN 30 mg/dL (7-18); BUN/Creat Ratio 19.4 RATIO (10-20); Calcium,Total 8.4 mg/dL (8.5-10.1); Chloride 106 mmol/L (98-107); Creatinine, Serum 1.55 mg/dL (0.70-1.30); EST Glomerular Filtration Rate 47 mL/min (>60); Est Glom Filt Rate - Afr Amer 57 mL/min (>60); Glucose 155 mg/dL (74-106); Potassium 4.6 mmol/L (3.5-5.1); Sodium Level 138 mmol/L (136-145)
--- NOTE | 2023-03-07 17:02 | HP.PCM_ITS ---
History and Physical Date of Admission: 03/14/23 This is a 67-year-old white male who presents today for cardiac catheterization following an abnormal stress test. He has a history of underlying CAD status post multivessel PCI superimposed on hyperlipidemia, hypertension, and a previous history of DVT/PE-on chronic anticoagulation therapy. As you recall, it appears that his diagnostic cardiac catheterization was performed at [facility] on 10-11-2011. At that time his overall LV systolic function was reported as normal with an LVEF of 63% with elevation of his left ventricular end-diastolic pressure and trace MR. He was reported as having the left main coronary artery being patent. The LAD had mid 20 to 30% stenosis. The diagonal branch had proximal 50 to 60% stenosis. There was a second diagonal branch ostial 30 to 40% stenosis. There was a comment that there was a stent in the proximal mid LAD which was patent. The LCx was reported as demonstrating a proximal stent which was patent. The RCA was a large and considered dominant. There was a mid stent which was reported as patent with 20 to 30% stenosis. The distal RCA had 10 to 20% stenosis. The proximal PDA had 40 to 50% stenosis-unchanged. The right posterior AV artery had 20 to 30% stenosis. It appeared that he had previous diagnostic cardiac catheterization/PCI performed on February 09, 2011 at [facility]. At that time he had successful RCA PTCA/stent performed. He had a previous cardiac catheterization performed at the same institution on August 172010. At that time he had notation of a patent stent in the LCx system. He underwent LAD PTCA/stent and diagonal branch PTCA. He states he has also had DVT/PE in the past. He had an IVC filter which was removed remotely. He has remained on anticoagulant therapy for his thromboembolic disease process. From a cardiac standpoint, the patient is doing well. He denies any pa lpitations, chest pain, pressure or heaviness. He does have an occasional SOB with exertion-this is nothing new or worsening. He denies Orthopnea, and PND. He does not have bleeding issues; no blood in urine, stool or nosebleeds. He does acknowledge a gradual decrease in energy level. He denies myalgias, or claudication. He does not have edema, or sudden weight gain. He denies dizziness, lightheadedness, syncopal or near syncopal episodes, and headaches. Intake Vital Signs See EMR Allergies See EMR Medications See EMR [facility] Medical History Abnormal laboratory test Atherosclerotic heart disease of [place] coronary artery without angina pectoris Benign essential HTN BPH (benign prostatic hyperplasia) CAD (coronary artery disease) Diabetic neuropathy DVT (deep venous thrombosis) GERD (gastroesophageal reflux disease) History of left heart catheterization (LHC) (~10/11/11) History of pulmonary embolism HLD (hyperlipidemia) Medical management Presence of stent in coronary artery (~02/09/11) Tobacco dependence in remission Type 2 diabetes mellitus Surgical History History of bilateral cataract extraction History of bilateral knee replacement Hx of LASIK IVC filter removal Presence of coronary angioplasty implant and graft (~02/09/11) Family History Other CVA (cerebral vascular accident) Heart disease Hypertension Myocardial infarction Social History Smoking Status: Former smoker how long ago did patient quit smokin years ago alcohol intake: never substance use type: does not use caffeine: Yes Type: coffee Number of servings: 4 ROS Const Const: Positive for fatigue (gradual decrease in energy level); Negative for weakness, fever(s), headache(s), chills, frequent falls, weight gain or weight loss Eyes Eyes: Negative for blind spots, loss of peripheral vision, transient loss of vision, blurry vision, change in vision, double vision, floaters or tunnel vision ENT ENT: Negative for headache(s), dizziness, Nosebleed/epistaxis, balance problems or neck pain Cardio Chest Pain: No Palpitations: No Edema: None Muscle aches with walking: None Resp Respiratory: Positive for SOB with activity (occasional-nothing new or worsening); Negative for SOB at rest or SOB orthopnea\SOB lying down GI GI: Negative nausea, vomiting, heartburn, bloating, vomiting blood/hematemesis, bright, red blood in stools or black,tarry stools Musc Musc: Negative for muscle aches/ myalgia, muscle weakness, joint pain or balance problems Neuro Neuro: Negative for dizziness, lightheadedness, near syncope, syncope, orthostatic symptoms, frequent falls, headache(s), weakness, blurry vision or double vision Chago Hematologic/Lymphatic: Negative for easy bleeding or easy bruising Endo Endo: Positive for fatigue (gradual decrease in energy level) Cardiology Exam Const Appearance: cooperative, healthy appearing, comfortable and no acute distress Nutritional Appearance: well nourished and obese Orientation: alert, awake and oriented x3 Head Head: normal to inspection Ears: hearing grossly normal bilaterally Nose: external nose normal Face and Sinus: face symmetric Eyes General: appearance normal, both eyes and all related structures Eyelids: eyelids normal EOM: EOM intact bilaterally Neck Neck: normal visual inspection and no JVD Carotids: normal carotid upstroke Chest Chest inspection: normal inspection of the chest, symmetric chest movement and normal respiratory effort; Negative cough Auscultation: Bilateral: Clear to Auscultation Cardio Rate: regular rate Rhythm: regular rhythm Heart sounds: S1 normal and S2 normal; Negative rub, gallop or murmur GI GI: normal to inspection and obese Neuro General: patient alert, patient awake, patient oriented x3 and CN's II-XI intact bilaterally Skin Skin: no rashes or lesions noted Extremities Pulses: Normal: Right Posterior Tibial Pulse, Left Posterior Tibial Pulse, Right Radial Pulse and Left Radial Pulse Lower Extremity Edema: None: Bilateral Psych Psychological: normal affect Supplemental Info Supplemental Information Stress test 02/15/2023: Procedure: Pharmacologic stress nuclear imaging study Indications: CAD Consent: Per the patient Procedure: The patient underwent pharmacologic (Regadenoson) evaluation with a peak heart rate of 70 beats per minute (46%predicted maximal heart rate) and a peak blood pressure of 130/70 mmHg. The baseline ECG demonstrated normal sinus rhythm. EKG during lexiscan infusion revealed no significant ischemic changes. EKG post infusion revealed no significant ischemic changes [There were no cardiac dysrhythmias pretest, during pharmacologic infusion, or recovery]. [There was no complaint of chest discomfort during pharmacologic infusion or recovery]. The examination was discontinued secondary to completion of protocol. Impression: 1. Lexiscan stress test test is negative for Lexiscan infusion induced EKG changes of ischemia. 2. Lexiscan stress test test is negative for Lexiscan infusion induced chest pain. 3. Results of the nuclear portion of the test is as below Myocardial perfusion imaging study: Technique: The patient was injected with 14.6 millicuries of technetium 99m Cardiolite and subsequently rest SPECT Cardiolite nuclear imaging was obtained in the horizontal long, vertical long, and short axis views. The patient underwent pharmacologic [Regadenoson 0.4mg] evaluation. Please see above for details. The patient was injected with 44.7 millicuries of technetium 99m Cardiolite and subsequently stress SPECT Cardiolite nuclear imaging was obtained in the horizontal long, vertical long, and short axis views. A gated Cardiolite study at peak stress was obtained. Interpretation: Rest and stress SPECT Cardiolite nuclear imaging status post realignment, normalization, and attenuation correction demonstrate mild apical defect that was present on the stress images but not present on the rest images suggestive of apical ischemia. There is also evidence of diaphragmatic attenuation artifact. Gated images reveal no significant regional wall motion abnormalities. The reported LVEF is 64%. Impression: 1. There is evidence of mild apical ischemia. 2. Estimated ejection fraction is 64%. Assessment and Plan Assessment and Plan (1) Presence of stent in coronary artery: Status: Chronic Comment: PTCA/NELY and thrombectomy of occluded mid LCX 02/05/10; PTCA/NELY to LAD and RCA, and PTCA only to 1st diagonal 08/17/10; PTCA/stent to RCA 02/09/11 Plan: Patient has a history of coronary artery disease with stent placement. He does acknowledge gradual decrease in energy level. His stress test from 02/15/2023 was abnormal. Would like to proceed with a cardiac catheterization to further assess this. Depending on results, further recommendations will be made.
[2023-03-13 11:44] VITALS: BMI 38.5
--- NOTE | 2023-03-14 11:54 | CL.D_ITS ---
Patient Name: SHELBI GARCIA Study Date: 03/14/2023 Performing: Delon Hamilton MD Ht: 67 inches 170.18 cm : 1955 Wt: 245.99 lbs 111.58 kg Age: 67 Gender: male BSA: 2.21 PROCEDURE(S) PERFORMED [id number])[facility] CLINICAL PROFILE AND INDICATIONS Indications: Stable Known CAD Heart Failure: None Stress/Imaging Stress Test w/SPECT MPI: Yes Result: Positive Intermediate RiskStress Test with SPECT MPI: Positive Intermediate Risk CONCLUSIONS Stent to Prox LCX patent Stent to Mid RCA 30%; Stent to RPLV patent; 50% ostial RPDA Stent to Prox LAD patent; Mid LAD 50%; Ostial D1 30% RECOMMENDATIONS Medical therapy DESCRIPTION OF PROCEDURE The patient arrived to the procedure lab. The risks and benefits of the procedure as well as a full description of our services here and current unavailability of surgical backup were fully explained to the patient and/or their significant other prior to the catheterization. The Timeout was completed, verifying the correct patient and procedure. The patient's procedural site was prepped and draped in the usual fashion. Local anesthetic was given subcutaneously to right radial region with Lidocaine 2%. Using a modified Seldinger technique, arterial access was obtained via the right radial artery, a 6Fr sheath was inserted. Left Coronary Artery selective angiography was performed in multiple views using a 5 Fr. 4.0 Kensal catheter. LV to AO pullback pressures were then recorded. Right Coronary Artery selective angiography was then performed in multiple views using a 5 Fr. JR 4 catheter.The arterial sheath was pulled and a TR Band was applied for hemostasis CORONARY ANGIOGRAPHY DOMINANCE: Right Dominant LEFT HEART ASSESSMENT LVEDP: 31 mmHg LEFT ANTERIOR DESCENDING ARTERY: LAD: In-Stent Restenosis 10% Proximal lesion in LAD Luminal Irregularities 50% Mid lesion in LAD DIAGONAL 1: Tubular 30% Ostial lesion in 1st Diagonal RIGHT CORONARY ARTERY: RCA: In-Stent Restenosis 30% Mid lesion in RCA, STENT to 30% Tubular 40% Distal lesion in RCA RT PDA: Tubular 50% Ostial lesion in RT PDA COMPLICATIONS No Complications PROCEDURE MEDICATIONS Fentanyl 50 mcg IV Versed 1 mg IV Aspirin (325mg) 1 Tabs PO @ 03/14/2023 08:15:43 Heparin given IA 03/14/2023 10:28:18 Plavix 75 mg PO 03/14/2023 08:15:32 Verapamil 2.5mg, Ntg 200mcgs, 2000 units of Heparin given IA 03/14/2023 10:28:18 SUMMARY OF HEMODYNAMIC DATA Time AIR REST ECG 08:12:32 AO 119/63 (86) SA 10:35:59 LV 130/12, 31 10:40:22 LV 132/12, 28 10:40:30 LVp 138/49, 58 10:40:49 AOp 126/56 (85) 10:40:56 Signed By Delon Hamilton MD On 03/14/2023 11:53:22 Delon Hamilton MD
== END 2023-03-14 12:40 | disposition home or self-care (01) ==
LOC: CLSP 07:51
PROVIDERS: Nurse Practitioner Gerontology; PCP Family Medicine; Referring Provider Internal Medicine Cardiovascular Disease; Visit Provider Internal Medicine Cardiovascular Disease
DX: T82.855A Stenosis of coronary artery stent, initial encounter (principal); I74.9 Embolism and thrombosis of unspecified artery; E11.40 Type 2 diabetes mellitus with diabetic neuropathy, unspecified; I25.10 Atherosclerotic heart disease of native coronary artery without angina pectoris; I10 Essential (primary) hypertension; Z95.5 Presence of coronary angioplasty implant and graft; Z87.891 Personal history of nicotine dependence; E78.5 Hyperlipidemia, unspecified; Z86.718 Personal history of other venous thrombosis and embolism; Z79.01 Long term (current) use of anticoagulants; Y71.8 Miscellaneous cardiovascular devices associated with adverse incidents, not elsewhere classified
CPT/HCPCS: 36415; 71046; 80048; 85025; 93454; 99152; 99153; J7030; Q9967; C1769; C1894

== ENCOUNTER 2023-08-30 08:48 | Inpatient (IN) | payer MEDICARE, SELFPAY ==
--- NOTE | 2023-08-08 10:34 | EKG12_ITS ---
Test Reason : PREOP Blood Pressure : / mmHG Vent. Rate : 055 BPM Atrial Rate : 055 BPM P-R Int : 200 ms QRS Dur : 082 ms QT Int : 456 ms P-R-T Axes : 022 -18 032 degrees QTc Int : 436 ms Sinus bradycardia Nonspecific T wave abnormality Abnormal ECG Confirmed by AAYUSH TORIBIO, FABIOLA ([id number]), scientific publications editor NUBIA GARCIA ([id number]) on 08/10/2023 11:40:16 AM Referred By: TRAN Confirmed By:FABIOLA LOONEY MD
--- NOTE | 2023-08-08 10:34 | RAD_ITS ---
STUDY: X-RAY CHEST REASON FOR EXAM: Male, 68 years old. Preoperative evaluation for total knee arthroplasty. TECHNIQUE: Frontal and lateral views of the chest. COMPARISON: March 06, 2023 FINDINGS: The lungs are clear and expanded. Scattered healed parenchymal granulomatous calcifications unchanged. There is no demonstrated pleural abnormality. Normal size heart. Normal mediastinum and joelle. Normal visualized pulmonary arteries. Normal visualized aortic arch and descending thoracic aorta. Mild thoracic spondylosis unchanged. Normal visualized ribs, clavicles, and shoulders. No abnormality of the visualized soft tissue structures of the upper abdomen. RAD/Chest PA and Lateral IMPRESSION: No interval change and no acute or active cardiopulmonary disease. Electronically Signed: Francisco Merrill MD at 9:36 EDT ,
[2023-08-08 11:21] LABS: Absolute Lymphocyte Count 3.72 X10^3/uL (0.83-4.51); Absolute Neutrophil Count 3.5 X10^3/uL (2.0-7.7); Basophil# 0.07 X10^3/uL; Basophil% 0.9 % (0-1); Eosinophil# 0.19 X10^3/uL; Eosinophils% 2.4 % (0-5); Hematocrit 47.4 % (40-54); Hemoglobin 15.1 g/dL (13.0-16.5); Lymphocyte # 3.72 X10^3/ul (0.83-4.51); Lymphocyte % 46.9 % (19-41); Mean Corp Hgb Conc 31.9 g/dL (32-36); Mean Corpuscular Hgb 31.1 pg (27.0-32.0); Mean Corpuscular Volume 97.5 fL (80-94); Mean Platelet Vol. 10.7 fl (6.2-12.0); Monocyte# 0.44 X10^3/uL; Monocyte% 5.5 % (0-10); NRBC Flagged by Analyzer 0 % (0-5); Platelet Count 187 K/mm3 (150-450); RBC Distribution Width CV 13.5 % (11.6-14.6); RBC Distribution Width SD 48.9 fl (35.1-43.9); Red Blood Count 4.86 M/mm3 (4.6-6.2); White Blood Count 7.9 K/mm3 (4.4-11.0)
[2023-08-08 11:49] LABS: Albumin, Serum 3.8 g/dL (3.2-5.0); Anion Gap 3 (5-15); BUN 28 mg/dL (7-18); BUN/Creat Ratio 18.8 RATIO (10-20); Calcium,Total 8.7 mg/dL (8.5-10.1); Chloride 108 mmol/L (98-107); Creatinine, Serum 1.49 mg/dL (0.70-1.30); EST Glomerular Filtration Rate 50 mL/min (>60); Est Glom Filt Rate - Afr Amer 60 mL/min (>60); Glucose 138 mg/dL (74-106); Sodium Level 139 mmol/L (136-145)
[2023-08-08 11:55] LABS: Magnesium 2.4 mg/dL (1.6-2.6)
[2023-08-08 11:59] LABS: Hemoglobin A1c 6.1 % (3.8-5.6)
--- NOTE | 2023-08-21 11:37 | HP.PCM_ITS ---
History and Physical History and Physical? Patient Name: Tye Caceres : 1955 From:? LIDA JACKSON PA-C? DATE OF PRE-OPERATIVE EXAM: 08/21/2023 DATE OF SURGERY:? 08/30/2023 SCHEDULED PROCEDURE:? Revision left total knee arthroplasty HISTORY OF PRESENT ILLNESS: Preoperative history and physical exam was performed on August 21, 2023.? This is a 68-year-old male who comes in today for preoperative visit for an upcoming revision left total knee arthroplasty.? Patient had a previous left total knee arthroplasty by Dr. Warren Olivarez on May 20, 2013.? Patient also has previous right total knee arthroplasty on September 15, 2014.? Patient was treated for infection following the right knee surgery and treated with oral antibiotics.? Patient has been having ongoing pain in the left knee.? Patient's pain has been constant, aching, stabbing.? Pain is increased with going up and down stairs and sitting.? There is been no trauma or injury.? Patient states his pain is over the anterior knees bilaterally.? Patient has difficulty with activities of daily living including getting dressed, housework and shopping.? Patient has had previous bone scan and inflammatory lab work.? Patient also had aspiration due to elevated inflammatory markers.? Patient does have loosening appreciated on imaging studies.? Patient's pain can reach 9/10 with activities.? He has attempted bracing and physical therapy in the past without relief.? He has tried rest, ice, heat and elevation without relief.? After failing conservative measures and discussing all treatment options with Dr. Dev Whitehead, the patient does wish to proceed with a left revision total knee arthroplasty.? Patient has had surgical clearance from the [facility] in which he was instructed to stop the Plavix 5 days prior to surgery.? He has also had preoperative clearance from the primary care provider by Dr. Red.? Patient does have medical history pertinent for previous heart attacks, hypertension, heart stents, congestive heart failure, type 2 diabetes mellitus, history of DVT in the leg and pulmonary embolism unprovoked, depression, sleep apnea without use of CPAP, chronic kidney disease stage III, diabetic neuropathy, benign prostatic hyperplasia, gastroesophageal reflux disease, rheumatoid arthritis with negative rheumatoid factor.? Patient states the primary care physician stopped his Eliquis over 2 years ago.? He also reports that he will be seen a administrative support assoc this summer.? He states he has no longer taking any Flomax for the benign prostatic hyperplasia.? His last A1c was 6.1.? Patient denies any recent chest pain, short breath, fevers chills or recent infections.? Patient does report a venous filter placed in 2008. REVIEW OF SYSTEMS: Review Of Systems: Constitutional: Reports anxiety, but denies anorexia, change in appetite, fever, difficulty sleeping, weight change. Cardiovasular: Reports peripheral vascular disease, but denies chest pain, heart murmur and irregular heartbeat. Respiratory: Reports sleep apnea and shortness of breath, but denies asthma, cough, pneumonia, tuberculosis and wheezing. Gastrointestinal: Reports heartburn, but denies constipation, diarrhea, nausea, rectal itching, bloody stools and vomiting. Genitourinary: Denies incontinence. Musculoskeletal: Reports leg swelling, pain, trouble walking and weakness. Skin: Denies Raynaud's, history of shingles and tattoo. Neurological: Reports numbness but denies ambulatory dysfunction, dizziness, numbness/tingling and tremor. Psychiatric: Reports anxiety, depression and stress, but denies insomnia and mental illness. Hematologic/Lymphatic: Reports bleeding/bruising tendency, but denies anemia and past transfusion. Reviewed, no changes. PAST MEDICAL HISTORY: Advance Care Plan: No Advance Directives Effective Date: 01/17/2023 Past Medical History: Medical Problems: Arthritis, High Blood Pressure Heart Attack - X3 Congestive Heart Failure (CHF), Kidney Stones, Diabetes History Of Blood Clots/ DVT - After third heart attack in legs? Hypercholesterolemia, Depression, Sleep Apnea Kidney Disease/Renal Failure - stage 3 Diabetic neuropathy, Benign prostatic hyperplasia, Acid Reflux, Monoclonal gammopathy definition Pulmonary Embolism - (2013) Accidents: None Surgical Hx: Tonsillectomy Knee Arthroscopy Lt - [address] [facility] [address] LUIS Knee Arthroscopy Rt - 1993 [facility] [address] LUIS Heart Stents - 5 STENTS LT TKR - (05/20/2013) [email or web address] Venous filter - PLACED IN 2008 [facility]? REMOVED IN 2014 [facility]? Knee Replacement RT - (09/15/2014) [email or web address] Cortisone Steroid Injection - (2019) LUMBAR DR. RATNA ARVIZU? Cataracts - (1999) BILAT DR. STEVIE CHEN? Anesthesia Complications: None Assistive Devices: None Reviewed and updated. SOCIAL HISTORY: Social History: Marital: .Occupation: Retired.Work Status: Retired.Hand Dominance: Left- handed. Personal Habits:? Tobacco Use: Patient is a former smoker.Cigarette Use: Former.Smokeless Tobacco: Never Used Smokeless Tobacco.E-Cigarette Use: Never used.Alcohol: Occasionally.Drug Use: Denies Use.Enjoy Exercising: Daily. Reviewed, no changes. VITALS: Ht: 67.8 Wt: 256lb Wt k.122 BMI: 39.2 BP: 116/60 Pulse: 58 Resp: 15 T: 97.1 T: 36.2C Pain Level: 6 O2SatR: 99 ALLERGIES: Benadryl - Hives? MEDICATIONS: Lisinopril 5mg one am and one pm, Clopidogrel 75 mg 1 po qd, Metformin HCL 500 mg one tab po once daily, Losartan Potassium 25 mg 1 by mouth every day, Metoprolol Succinate ER 50 mg, Jardiance 10 mg 1 po qdaily, Rosuvastatin Calcium 40 mg, Gabapentin 400 mg take 1 capsule by mouth 4 times daily, Amlodipine Besylate 10 mg take 1 tablet by mouth once daily, Furosemide 40 mg take 1 tablet by mouth once daily, Escitalopram Oxalate 20 mg take 1 tablet by mouth once daily PRE-OP EXAM:? PHYSICAL EXAMINATION: Patient does walk with an antalgic gait.? Patient has anterior knee pain with pain over the pes anserine.? Previous incision is well healed on the left knee.? Range of motion: 0 extension to 118 flexion.? Sensation intact to light touch. IMAGING STUDIES: Previous x-rays and bone scan reveal loosening of the components. Patient has had a positive synovasure neutrophil elastase Previous inflammatory markers: ESR 63, CRP 8.48 IMPRESSION: 1.? Painful left total knee arthroplasty with loosening 2.? Hypertension 3.? Coronary artery disease with previous heart attack and stent placement 4.? Congestive heart failure 5.? Type 2 diabetes mellitus: A1c 6.1 6.? History of previous DVT and pulmonary embolism: Off anticoagulation 7.? Chronic kidney disease stage III 8.? Depression 9.? Sleep apnea without use of CPAP 10.? Diabetic neuropathy 11.? Benign prostatic hyperplasia: off of FLOMAX 12.? Gastroesophageal reflux disease 13.? Monoclonal gammopathy 14.? Rheumatoid arthritis with negative rheumatoid factor 15.? Hypercholesterolemia 16.? Obesity with BMI 39.2 PLAN: Dr. Dev Whitehead did discuss and review with the patient all treatment options including surgical versus nonsurgical options.? Patient does wish to proceed with the above-stated procedure.? Potential risks, benefits, and complications of the procedure were discussed in detail including but not limited to , infection, nerve and blood vessel damage, persistent pain, numbness, tingling, paresthesias, blood clot, pulmonary embolism, and requirement for possible further surgery.? The patient expressed full understanding and has no further questions for the doctor.? Patient does agree to proceed with the above-stated procedure and has signed the surgery consent form. POST-OP MEDICATION PLAN: Pain Medications:? Postoperative pain regimen will be initiated by Dr. Dev Whitehead in the hospital.? We are unable to use nonsteroidal anti-inflammatories due to his chronic kidney disease and heart disease.? Patient has obtained surgical clearance from the primary care provider and traditional chinese herbalist.? Due to revision he will be placed on antibiotic postoperatively.? We did discuss doxycycline and the potential for patient to have increased sensitivity to sunlight and should take appropriate precautions.? Also recommended to use probiotic while on the antibiotic.? Patient states he does have a walker which she will bring to hospital.? We discussed the risk of urinary retention with his benign prostatic hyperplasia.? Patient has been instructed by the traditional chinese herbalist to stop Plavix 5 days prior to surgery. DVT Prophylaxis: Patient will use Xarelto 10 mg once daily for 2 weeks postoperatively due to past history of DVT and pulmonary embolism.? After 2 weeks he will be placed on aspirin 81 mg twice daily for an additional 2 weeks. This dictation was created using voice recognition software. Phonetic and/or grammatical errors may exist. ___? I have re-examined the patient.? There are no clinical changes since date of exam. ___? See progress notes for changes. ___? Dictated on admission Date: ? ? ?Time: Signature:
[2023-08-30] VITALS (11 sets, daily range): BP systolic 143–164; BP diastolic 65–75; PULSE 58–73; RESP 14–18; TEMP 36.2–37; O2SAT 93–97; BMI 40.7
[2023-08-30] MEDS: Lactated Ringers 1,000 ML 999 ML IV ×2 (09:32→15:11)
[2023-08-30] MEDS: Acetaminophen 500 MG Tablet 1000 MG PO ×2 (09:33→21:40)
[2023-08-30] MEDS: Magnesium 1 GM over 15 mins IV (09:33)
[2023-08-30] MEDS: Gabapentin 100 MG Capsule 200 MG PO (10:16)
[2023-08-30 10:36] LABS: Bedside Glucose 176 mg/dL (74-106)
[2023-08-30] MEDS: Cefazolin 2 GM in 0.9% Normal Saline (100mL Bag) 100 ML IV (11:59)
[2023-08-30] MEDS: dexAMETHasone 10 MG/ML Vial IV (12:18)
[2023-08-30] MEDS: JPS (Morphine 10mg/ml) OPERA.SITE (13:29)
[2023-08-30] MEDS: TRANEXAMIC ACID 2,000 MG, 0.9% Normal Saline (100mL Bag) 100 ML OPERA.SITE (14:12)
--- NOTE | 2023-08-30 14:28 | OP.PCM_ITS ---
Report of Operation Date of Procedure: 08/30/23 Pre-Operative Diagnosis: Failed left total knee replacement, aseptic loosening Post-Operative Diagnosis: Revision left total knee replacement entire femoral and tibial components Surgery/Procedure Performed:: Revision left knee replacement entire femoral and tibial components Description of Surgical Findings:: Femoral and tibial components were grossly loose with separation of the cement bone interface. Surgeon: Dev Whitehead color dipper: Adria Irving Type of Anesthesia: Spinal Anesthesiologist: Kain Howard Special Medications: 2 g Ancef, 1 g TXA at incision, 1 g TXA closure, 10 mg Decadron, joint cocktail (5 mg Duramorph, 30 mL of 0.5% Ropivicaine, 1000 units of epinephrine, 30 mg of Toradol) Specimen's removed: 3 separate specimens were sent to microbiology Estimated Blood Loss (mL): 150 mL Fluids Replaced: 1100 mL crystalloid Description of Procedure: Implants used: Femur: [place] triathlon size 5 total stabilized distal femoral component with 5 mm augments distally and posteriorly on the lateral side. 15 mm x 50 mm cemented stem. Tibia: [place] triathlon universal tibial baseplate size 6 with 15 mm x 50 mm cemented stem. Size C symmetric tibial cone Poly: [place] triathlon X3 19 mm posterior stabilized polyethylene Brief history operative indications: 68-year-old M with total knee replacement in 2013. Patient demonstrated radiographic evidence and clinical evidence of aseptic loosening. Preoperative workup for infection was negative.. After ruling out infection we agreed to proceed with revision total knee replacement which had risks which include but not limited to blood loss, DVTs, PEs, nervous damage, infection, the risk of anesthesia. Patient demonstrate understanding was able to sign informed conse nt. Medical clearance was obtained. Procedure: On the date of procedure patient's L lower extremity was marked in the preoperative area. The patient was then taken back to the operating room where t he patient was placed on the table in the supine position. All bony prominences were identified a well-padded. Anesthesia assumed control of the C-spine and airway and remained controlled throughout the remainder of the procedure. A tourniquet was placed on the L upper thigh and the leg was prepped in a sterile fashion. The surgeon then scrubbed at this time. Upon reentering the room L lower extremity was draped in a standard orthopedic fashion. A timeout was then called and everyone agreed upon the side, the site, the procedure to be performed, patient's identity and antibiotics given. An Esmarch bandage was used to exsanguinate the extremity and the tourniquet was placed up to 250 mmHg with the knee in flexion. A midline skin incision was made using the previous incision and extending it proximally and distally to identify normal tissue planes. Medial and lateral flaps were developed appropriate releases. The standard medial parapatellar arthrotomy was made and the patella was subluxed laterally. At this time an aggressive synovectomy was performed re-creating the medial gutter first, then the suprapatellar pouch than the lateral gutter. Once this was completed the knee was flexed up an osteotome was used to remove the tibial polyethylene. The remainder of the synovium was debrided. The standard deep MCL release was done and the patella scar pad was resected and lateral releases were performed. Next our attention was directed to the femur. Where flexible osteotomes and TPS saw were used to break up the implant cement interface. This was done both medially and laterally. After this a bone tamp was used to remove the femur component from the end of the bone. This was done with minimal bone loss. At this time attention was now directed towards the proximal tibia. Possible osteotome and TPS saw were then used to break up the proximal tibia implant interface and stacked osteotomes were used to remove the tibial implant. This was done with minimal bone loss. Our attention was then turned to the tibia where the intramedullary canal was reamed to 16 mm and a size C tibial cone was reamed. We then made a cleanup cut on the tibia, A drop boni was then used to verify the cut. A size 6 tibial base plate was selected. the knee was flexed and the tibial component was pinned into place and the boss reamer was used to ream the proximal medullary canal. The trial implant was impacted in its prepared position. Our attention was then turned back to the femur or the femur intramedullary canal was reamed to 18 mm using the previous implants a size 5 TCG cutting guide with a 18 x 100 mm stem was put into place. The medial epicondyle was used to set the joint line. With this TCG cutting guide we used a 16 mm polyethylene trial in order to help balance the gaps. Once the gaps were appropriately balanced the guide was firmly pinned into place. Distal cuts were made with 0 mm augments medially and 5 mm augment laterally. Posterior cuts were made with 0 mm augments medially and 5 mm augment laterally. Using the guide the box cut was made using a reciprocating saw. The appropriate trials were then placed on the femur and tibia. A trial polyethylene was trialed to ensure proper balancing and stability of the knee. Patella tracking, was then verified and corrected appropriately as needed. Our attention was then directed to the patella. Patella remained intact and appropriate. Based on x-rays it was firmly fixed. Patellar tracking was again checked and deemed appropriate. Final components were verified and opened, 6 liters of normal saline were irrigated throughout the joint under low-pressure lavage. Then the cement was mixed in a vacuum. MiArch Simplex cement with tobramycin was used. The wound was copiously irrigated with normal saline. When the cement was ready cement plugs were placed in the tibial cone was placed the components were cemented into place starting with the tibia, femur. The trial poly component was placed and the knee was placed in full extension. All excess cement was removed in the process. Once the cement had cured the tracking, alignment and balance were verified and a size 19 mm mm PS polyethylene component was placed. Once the final components were placed a 3-minute dilute Betadine lavage was performed followed by a chlorhexidine lavage was used and the wound was copiously irrigated with normal saline solution and the remainder of the periarticular injection was given. The wound was closed in a layer cline fashion using #1 vicryl interrupted sutures for the arthrotomy, 2-0 interrupted Vicryl for the subcuticular layer and kuldeep for final skin closure. A sterile compressive dressing was then placed. The patient was then awakened from anesthesia, transferred [place] [facility] [place] transferred to the PACU for recovery. Post op plan DVT ppx: Xarelto 10 mg daily for 2 weeks followed by aspirin 81 mg p.o. twice daily for 2 weeks due to previous VTE, thigh high compression stockings Follow up: in office in 2 weeks for wound check PT: to start POD #0 at hospital, outpatient PT should be arranged. Will place patient on extended oral antibiotics doxycycline 100 mg p.o. twice daily as we follow cultures and because BMI is greater than 40. My physician administrative assistant was a vital part of this case. He was important in appropriate retraction during the case, and protection of soft tissues during bony cuts. His intimate knowledge of the case and my steps aided in safe and expedient completion of the procedure as well as appropriate position of the leg during the case. He was also vital in assisting with closure under my direct supervision. Complications No intraoperative complications Admit VTE Documentation VTE Present on Admission: No VTE Mechan Device Prophylaxis: SCD's and Thigh High ANABELLE Hose VTE Pharm Prophylaxis ordered?: Yes
--- NOTE | 2023-08-30 15:10 | RAD_ITS ---
STUDY: X-RAY - LEFT KNEE REASON FOR EXAM: Male, 68 years old. Post op -- AP and Lateral xray of operative knee in PACU. TECHNIQUE: 2 views of the left knee. COMPARISON: Left knee radiographs dated 05/20/2013. FINDINGS: There are new postoperative changes related to new left total knee revision arthroplasty with patellar resurfacing. There is a vertical staple line along the anterior aspect of the knee. There is gas in the patellofemoral joint recess and anterior soft tissues, compatible with recent surgery. The orthopedic hardware components are intact. There is no periprosthetic fracture. Normal proximal tibiofibular articulation. RAD/Knee 1 or 2 Views IMPRESSION: New postoperative changes related to new left total knee revision arthroplasty. Electronically Signed: Deonte Soler MD at 15:31 EDT ,
[2023-08-30 16:18] LABS: Bedside Glucose 159 mg/dL (74-106)
[2023-08-30] MEDS: oxyCODONE 5 MG Tablet PO ×2 (16:19→20:12)
[2023-08-30] MEDS: Lactated Ringers 1,000 ML 125 ML IV (16:23)
--- NOTE | 2023-08-30 17:43 | PCM.CONS.GEN ---
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 Today is POD 0 PO tylenol, oxycodone and IV morphine prn for pain Incentive spirometry PT.OT on board fall precautions management as per primary service orthopedics #Hypertension: on lisinopril, amlodipine and metoprolol. IV hyralazine prn #Type 2 diabetes mellitus: on jardiance and metformin. Insulin sliding scale. Accuchecks ACHS #Depression; on escitalopram #Hyperlipidemia: on statin. DVT prophylaxis: on xarelto, as per primary service Thank you for the courtesy of the consult. The hospitalist service will continue to follow with you. HPI Consult Data Date of Consult: 08/30/23 HPI Narrative Reason for Consultation: medical management HPI Narrative: SHELBI GARCIA, is a 68 M with a PMH as outlined was admitted to the service of orthopedic surgery on 08/30/2023. Patient had a history of osteoarthritis and not had left total knee arthroplasty in May 2013. He had had ongoing pain in the left knee and the pain was aching and constant and aggravated by going up and down the stairs. He had failed all conservative management and so opted for revision of the left total knee arthroplasty. He had a past medical history significant for hypertension, CAD s/p stents, type 2 diabetes mellitus and history of DVT in the lower extremities as well as PE, depression and sleep apnea as well as CKD, diabetic neuropathy and BPH. He said he was no longer on Eliquis. He had the revision of the left total knee arthroplasty on 08/30/2023. Hospitalist service was consulted for medical management. Patient was seen after the surgical procedure. Pain was well-controlled. He had no active complaints. Review of systems otherwise negative. He has remained hemodynamically stable. [facility] Medical History (Updated 08/03/23 @ 08:38 by Nadia Santana) Wears glasses Anxiety Depression Insulin dependent diabetes mellitus Arthritis High cholesterol DVT (deep venous thrombosis) Back pain DDD (degenerative disc disease), lumbar TIA (transient ischemic attack) Dietary restriction Former smoker BiPAP (biphasic positive airway pressure) dependence Shortness of breath on exertion History of pain when walking History of edema History of stress test Cardiology follow-up encounter History of CHF (congestive heart failure) History of heart attack Pain Diabetic neuropathy Type 2 diabetes mellitus BPH (benign prostatic hyperplasia) History of pulmonary embolism Presence of stent in coronary artery (~02/09/11) Atherosclerotic heart disease of [place] coronary artery without angina pectoris Abnormal laboratory test Medical management DVT (deep venous thrombosis) Tobacco dependence in remission HLD (hyperlipidemia) CAD (coronary artery disease) Benign essential HTN Home Medications ?Medication ?Instructions ?Recorded ?Last Taken ?Type escitalopram oxalate 20 mg tablet 20 mg PO DAILY ANTIDEPRESSANT 01/31/13 12/08/14 History 20 MG rosuvastatin 40 mg tablet 40 mg PO DAILY CHOLESTEROL 01/31/13 06/22/21 History vitamin B complex 1 ea PO DAILY SUPPLEMENT 01/31/13 06/22/21 History clopidogrel 75 mg tablet 75 mg PO DAILY BLOOD THINNER ##30 05/22/13 08/26/23 Rx amlodipine 10 mg tablet 10 mg PO DAILY BP 06/16/20 08/29/23 History cyanocobalamin (vitamin B-12) 500 500 mcg PO DAILY SUPPLEMENT 06/16/20 06/22/21 History mcg tablet furosemide 40 mg tablet 40 mg PO DAILY WATER PILL 06/16/20 08/26/23 History insulin glargine 100 unit/mL (3 20 unit subcut QPM DIABETES 06/16/20 06/22/21 20:00 History mL) subcutaneous pen (Lantus Solostar U-100 Insulin) insulin lispro 100 unit/mL 8 unit subcut TID DIABETES 06/16/20 08/29/23 History subcutaneous pen (Humalog KwikPen (U-100) Insulin) losartan 50 mg tablet 50 mg PO DAILY BP 06/16/20 08/29/23 History metformin 1,000 mg tablet 1,000 mg PO BID DIABETES 06/16/20 08/29/23 History metoprolol succinate 50 mg 50 mg PO DAILY BP 06/16/20 08/26/23 History tablet,extended release 24 hr albuterol sulfate 90 mcg/actuation 1 - 2 puff inhalation Q4H PRN PRN 12/16/20 Unknown Rx aerosol inhaler (Ventolin HFA) Wheezing or cough #1 inh naproxen 500 mg tablet 500 mg PO DAILY PRN Muscle Pain 12/31/20 06/22/21 History empagliflozin 10 mg tablet 10 mg PO MOWEFR DIABETES 11/19/21 08/28/23 History (Jardiance) gabapentin 400 mg capsule 400 mg PO TID NEUROPATHY 08/03/23 08/30/23 07:00 History aspirin 81 mg tablet,delayed 81 mg PO DAILY check with primary 08/30/23 08/30/23 07:00 History release (Adult Aspirin Regimen) Allergy/AdvReac Type Severity Reaction Status Date / Time diphenhydramine HCl (From Allergy Hives Verified 08/30/23 09:17 Benadryl) Family History (Reviewed 01/19/23 @ 11:13 by Monse Norht EMBEDDED LINUX ENGINEER, EMBEDDED LINUX ENGINEER-C) Other CVA (cerebral vascular accident) Heart disease Hypertension Myocardial infarction Surgical History (Updated 08/03/23 @ 08:38 by Nadia Santana) Hx of arthroscopic knee surgery Hx of tonsillectomy IVC filter removal History of left heart catheterization (LHC) (~03/14/23) Hx of LASIK History of bilateral cataract extraction History of bilateral knee replacement Presence of coronary angioplasty implant and graft (~02/09/11) Social History (Reviewed 01/19/23 @ 11:13 by Monse [place] EMBEDDED LINUX ENGINEER, EMBEDDED LINUX ENGINEER-C) Smoking Status: Former smoker how long ago did patient quit smokin years ago alcohol intake: never substance use type: does not use caffeine: Yes Type: coffee Number of servings: 4 ROS Constitutional Constitutional: Reports fatigue; Denies anorexia, chills, fever(s), malaise or weakness Eyes Eyes: Denies change in vision ENT HEENT: Denies dysphagia Cardiovascular Cardiovascular: Denies chest pain, dyspnea on exertion, edema, lightheadedness, orthopnea, palpitations, paroxysmal nocturnal dyspnea, rapid heart rate or syncope Respiratory/Chest Respiratory/Chest: Denies cough, dyspnea, productive cough, shortness of breath at rest or shortness of breath with exertion Gastrointestinal Gastrointestinal: Denies abdominal pain, constipation, diarrhea, nausea or vomiting Genitourinary Genitourinary: Denies burning urination or dysuria Musculoskeletal Musculoskeletal: Reports joint pain; Denies arthralgias or joint swelling Neurologic Neurologic: Denies confusion, disequilibrium, dizziness, focal weakness, headache(s) or numbness Psychiatric Psychiatric: Denies anxiety Physical Exam Const alert, oriented x3 and no apparent distress General Appearance: cooperative HEENT normocephalic, head/scalp atraumatic, hearing grossly normal bilaterally and moist oral mucous membranes Mouth: oral and palatal mucosa normal Eyes PERRL, EOMs intact bilaterally and conjunctivae normal Neck no lymphadenopathy and supple Resp normal respiratory effort, no retractions, no use of accessory muscles and clear to auscultation bilaterally Cardio regular rate, regular rhythm, S1 normal heart sound, S2 normal heart sound and no murmurs GI normal to inspection, nondistended, normoactive bowel sounds, soft to palpation, non-tender and non-distended Extremity Extremity Narrative: LLE wrapped at the knee, the site of surgery Skin Skin Narrative: as under extremity Neuro oriented x3, CN's II-XII intact bilaterally and moves all extremities Sensorium / Orientation: awake and alert Speech: speech normal Psych affect normal Lab / Micro Data 08/08/23 10:56 08/08/23 10:56 Labs: Laboratory Results - last 24 hr 08/30/23 09:27: POC Glucose 176 H 08/30/23 15:47: POC Glucose 159 H Imaging Radiology Impression Knee X-Ray 08/30/23 15:10 IMPRESSION: New postoperative changes related to new left total knee revision arthroplasty. Electronically Signed: Deonte Soler MD at 15:31 EDT , Charges/Coding Visit Charges Inpatient E&M: 47624 Subs Hosp L2
[2023-08-30] MEDS: metFORMIN HCl 1,000 MG Tablet 1000 MG PO (18:15)
[2023-08-30] MEDS: Ensure Surgery 237 ML LIQUID PO (18:15)
[2023-08-30] MEDS: Insulin Lispro 100 UNIT/ML INSULN.PEN 8 UNIT SC (18:16)
[2023-08-30 18:17] LABS: Bedside Glucose 218 mg/dL (74-106)
[2023-08-30] MEDS: Cefazolin 1 GM/50 ML BAG IV (19:39)
[2023-08-30] MEDS: Insulin Glargine-YFGN 100 UNIT/ML Pen 20 UNIT SC (21:39)
[2023-08-30] MEDS: Senna/Docusate Sodium 1 Tablet 2 TABLET PO (21:40)
[2023-08-30] MEDS: Gabapentin 400 MG Capsule PO (21:48)
[2023-08-30 22:15] LABS: Bedside Glucose 208 mg/dL (74-106)
[2023-08-31] VITALS (8 sets, daily range): BP systolic 123–156; BP diastolic 48–92; PULSE 55–65; RESP 15–18; TEMP 36.3–36.9; O2SAT 94–100
[2023-08-31] MEDS: Cefazolin 1 GM/50 ML BAG IV (03:25)
[2023-08-31] MEDS: 0.9% Saline Lock 10 ML Syringe IV ×3 (03:25→21:46)
[2023-08-31] MEDS: Gabapentin 400 MG Capsule PO ×3 (05:35→21:22)
[2023-08-31] MEDS: Acetaminophen 500 MG Tablet 1000 MG PO ×3 (05:36→21:23)
[2023-08-31] MEDS: Rivaroxaban 10 MG Tablet PO (05:40)
[2023-08-31 07:23] LABS: Hematocrit 41.3 % (40-54); Mean Corp Hgb Conc 31.5 g/dL (32-36); Mean Corpuscular Hgb 30.8 pg (27.0-32.0); Mean Corpuscular Volume 97.9 fL (80-94); Mean Platelet Vol. 10.9 fl (6.2-12.0); Platelet Count 179 K/mm3 (150-450); RBC Distribution Width SD 50.6 fl (35.1-43.9); Red Blood Count 4.22 M/mm3 (4.6-6.2); White Blood Count 18.2 K/mm3 (4.4-11.0)
[2023-08-31 07:58] LABS: Anion Gap 6 (5-15); BUN 25 mg/dL (7-18); BUN/Creat Ratio 19.1 RATIO (10-20); Chloride 106 mmol/L (98-107); Creatinine, Serum 1.31 mg/dL (0.70-1.30); EST Glomerular Filtration Rate 57 mL/min (>60); Est Glom Filt Rate - Afr Amer 70 mL/min (>60); Estimated Creatinine Clearance 64.43 ml/min; Glucose 150 mg/dL (74-106); Potassium 4.2 mmol/L (3.5-5.1); Sodium Level 137 mmol/L (136-145)
[2023-08-31] MEDS: Insulin Lispro 100 UNIT/ML INSULN.PEN 8 UNIT SC ×3 (08:03→17:20)
[2023-08-31] MEDS: Aspirin E.C. 81 MG Tablet PO (08:04)
[2023-08-31] MEDS: amLODIPine 10 MG Tablet PO (08:04)
[2023-08-31] MEDS: Escitalopram Oxalate 20 MG Tablet PO (08:04)
[2023-08-31] MEDS: Metoprolol(XL)Succ 50 MG Tablet PO (08:04)
[2023-08-31] MEDS: metFORMIN HCl 1,000 MG Tablet 1000 MG PO ×2 (08:04→17:19)
[2023-08-31] MEDS: Senna/Docusate Sodium 1 Tablet 2 TABLET PO ×2 (08:04→21:23)
[2023-08-31] MEDS: Atorvastatin Calcium 80 MG Tablet PO (08:05)
[2023-08-31] MEDS: Losartan Potassium 50 MG Tablet PO (08:05)
[2023-08-31] MEDS: Clopidogrel Bisulfate 75 MG Tablet PO (08:05)
[2023-08-31] MEDS: Furosemide 40 MG Tablet PO (08:05)
[2023-08-31] MEDS: Famotidine 20 MG Tablet PO (08:05)
[2023-08-31] MEDS: Cyanocobalamin 500 MCG Tablet PO (08:05)
[2023-08-31] MEDS: Ensure Surgery 237 ML LIQUID PO ×3 (08:10→17:18)
--- NOTE | 2023-08-31 08:24 | NURSING ---
SAIRA wrap removed at 0810 08/31/23
--- NOTE | 2023-08-31 08:44 | PCM.PN.HOSP ---
Reason for Visit Reason for Visit: Left knee pain Subjective Subjective Patient states he is feeling great. No complaints. States his knee pain is minimal. Unfortunately his cultures were positive for gram-negative rods and he was informed of this and he is aware that have to stay for a little bit of time and infectious disease will be in to see him later today. Objective Data Objective Data Vital Signs: Vital Signs Temp Pulse Resp BP Pulse Ox O2 Del Method O2 Flow Rate 97.4 F L 62 18 156/71 H 100 Room Air 4 08/31/23 08:00 08/31/23 08:04 08/31/23 08:00 08/31/23 08:00 08/31/23 08:00 08/31/23 08:00 08/30/23 15:30 Oxygen Flow Rate (L/min) 4 Oxygen Delivery Method Room Air Weight: 117.9 kg Body Mass Index (BMI) 40.7 Intake & Output: Intake and Output for Last 24 Hours 08/29/23 08/30/23 08/31/23 23:59 23:59 23:59 Intake Total 2442 / 2442 1350 / 1350 Output Total 650 / 650 1200 / 1200 Balance 1792 / 1792 150 / 150 Lab / Micro Data 08/31/23 06:56 08/31/23 06:56 Labs: Laboratory Results - last 24 hr 08/30/23 09:27: POC Glucose 176 H 08/30/23 15:47: POC Glucose 159 H 08/30/23 17:54: POC Glucose 218 H 08/30/23 21:37: POC Glucose 208 H 08/31/23 06:56: WBC 18.2 H, RBC 4.22 L, Hgb 13.0, Hct 41.3, MCV 97.9 H, MCH 30.8, MCHC 31.5 L, RDW Std Deviation 50.6 H, RDW Coeff of Pro 14.0, Plt Count 179, MPV 10.9, Sodium 137, Potassium 4.2, Chloride 106, Carbon Dioxide 25.0, Anion Gap 6, BUN 25 H, Creatinine 1.31 H, Estim Creat Clear Calc 64.43, Est GFR (MDRD) Af Amer 70, Est GFR (MDRD) Non-Af 57 L, BUN/Creatinine Ratio 19.1, Glucose 150 H, Calcium 9.0 Micro: Microbiology 08/08/23 10:56 Swab (Method) Nasal Screen MRSA/MSSA - Final Radiography Diagnostic Testing: Radiology Impression Knee X-Ray 08/30/23 15:10 IMPRESSION: New postoperative changes related to new left total knee revision arthroplasty. Electronically Signed: Deonte Soler MD at 15:31 EDT Reading Location ID and State: [address] [place] [address] , Service support , Physical Exam Const alert, oriented x3, no apparent distress and well nourished; Negative for average body habitus or healthy appearing Constitutional Narrative: Morbidly obese, white male, sitting up in a chair at the bedside, knee is bent at 90 degrees, appears comfortable, nontoxic HEENT head/scalp atraumatic, moist oral mucous membranes and oropharynx normal Head and Scalp: normocephalic Resp normal respiratory effort, no retractions, no use of accessory muscles and clear to auscultation bilaterally Auscultation: Negative for rales, rhonchi or wheezes Cardio regular rate, regular rhythm, S1 normal heart sound, S2 normal heart sound, no murmurs, no rub, no gallops and no clicks GI normal to inspection, nondistended, normoactive bowel sounds, soft to palpation and non-tender GI Narrative: Protuberant abdomen Extremity no clubbing, cyanosis or edema Extremity Narrative: Pedal pulses are 2+, left lower extremity knee flexed to 90 degrees with polar ice and ANABELLE hose in place Neuro oriented x3, moves all extremities and no focal motor deficits Speech: speech normal Psych affect normal Psych Narrative: Extremely pleasant, interacts appropriately Assessment & Plan Assessment/Plan (1) Status post revision of total replacement of left knee: (2) Prosthetic joint infection: PLAN: Plan 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 twice daily as they follow cultures due to BMI greater than 40 -Outpatient follow-up in the office in 2 weeks for wound check -Infectious disease consultation pending History of VTE -Remote--> 2013 -Will use Xarelto postoperatively followed by aspirin for DVT prophylaxis Coronary artery disease -PTCA/NELY and thrombectomy of occluded mid LCX 02/05/10; PTCA/NELY to LAD and RCA, and PTCA only to 1st diagonal 08/17/10; PTCA/stent to RCA 02/09/11 -Cardiac catheterization done here on 03/14/2023 at which time patent stents were noted from previous PCI -Continue aspirin -Continue Plavix -Continue risk factor modification with controlled blood pressure, cholesterol, and glycemic control Hypertension/hyperlipidemia -Continue home metoprolol next-continue home losartan -Continue home rosuvastatin -Continue home Lasix -Continue home amlodipine DM-2 -Continue home insulin regimen -Continue home Jardiance -Continue home metformin Diabetic neuropathy -Continue home gabapentin Morbid obesity -BMI is 40.7 -Complicates treatment, prognosis, outcomes DVT prophylaxis -Per primary service Disposition: Stable for discharge from a medical standpoint Charges/Coding Visit Charges Inpatient E&M: 78022 Subs Hosp L2
--- NOTE | 2023-08-31 11:39 | PCM.PN.ORT ---
Subjective Subjective The patient was sitting in bedside chair upon examination with family members present. Patient denies any chest pain, shortness of breath, dizziness, lightheadedness, nausea or vomiting, or calf pain. Pain is controlled on medications. No adverse overnight events. Patient states he is doing well. He has been up walking. He still states the pain is been well-controlled. He did have postoperative block. Patient did have preoperative inflammatory markers and aspiration. Patient had a positive Synovasure neutrophil elastase and previous inflammatory markers ESR 63 and CRP 8.48. Patient had a previous left total knee arthroplasty by Dr. Warren Olivarez on May 20, 2013 Objective Data Objective Data Vital Signs: Vital Signs Temp Pulse Resp BP Pulse Ox O2 Del Method O2 Flow Rate 97.4 F L 62 18 156/71 H 100 Room Air 4 08/31/23 08:00 08/31/23 08:04 08/31/23 08:00 08/31/23 08:00 08/31/23 08:00 08/31/23 08:00 08/30/23 15:30 Oxygen Flow Rate (L/min) 4 Oxygen Delivery Method Room Air Weight: 117.9 kg Body Mass Index (BMI) 40.7 Intake & Output: Intake and Output for Last 24 Hours 08/29/23 08/30/23 08/31/23 23:59 23:59 23:59 Intake Total 2442 / 2442 1350 / 1350 Output Total 650 / 650 1200 / 1200 Balance 1792 / 1792 150 / 150 Lab / Micro Data 08/31/23 06:56 08/31/23 06:56 Labs: Laboratory Results - last 24 hr 08/30/23 15:47: POC Glucose 159 H 08/30/23 17:54: POC Glucose 218 H 08/30/23 21:37: POC Glucose 208 H 08/31/23 06:56: WBC 18.2 H, RBC 4.22 L, Hgb 13.0, Hct 41.3, MCV 97.9 H, MCH 30.8, MCHC 31.5 L, RDW Std Deviation 50.6 H, RDW Coeff of Pro 14.0, Plt Count 179, MPV 10.9, Sodium 137, Potassium 4.2, Chloride 106, Carbon Dioxide 25.0, Anion Gap 6, BUN 25 H, Creatinine 1.31 H, Estim Creat Clear Calc 64.43, Est GFR (MDRD) Af Amer 70, Est GFR (MDRD) Non-Af 57 L, BUN/Creatinine Ratio 19.1, Glucose 150 H, Calcium 9.0 Micro: Microbiology 08/30/23 12:30 Tissue - Knee Gram Stain - Final 08/30/23 12:30 Tissue - Knee Wound Culture - Preliminary GNR Poss Pseudomonas sp 08/30/23 12:30 Tissue - Knee Gram Stain - Final 08/30/23 12:30 Tissue - Knee Gram Stain - Final 08/08/23 10:56 Swab (Method) Nasal Screen MRSA/MSSA - Final Radiography Diagnostic Testing: Radiology Impression Knee X-Ray 08/30/23 15:10 IMPRESSION: New postoperative changes related to new left total knee revision arthroplasty. Electronically Signed: Deonte Soler MD at 15:31 EDT , Physical Exam Narrative Vital signs stable and afebrile. SCDs and ANABELLE hose are in place bilaterally Patient is able to plantarflex and dorsiflex actively. Sensation is intact to light touch to saphenous, sural, superficial and deep peroneal, and tibial distribution. Dressing is clean dry and intact. Negative Homans bilaterally, negative signs and symptoms of DVT. Const alert, oriented x3 and no apparent distress Assessment & Plan Assessment/Plan (1) Status post revision of total replacement of left knee: PLAN: 1. S/P left revision total knee arthroplasty POD #1 2. Continue Pain Medications: Tylenol and oxycodone. I did advise patient consulting with his customer experience analyst with regards to further nonsteroidal anti-inflammatory use. 3. DVT Prophylaxis: Patient will currently be on Xarelto 10 mg once daily for 2 weeks postoperatively due to past history of pulmonary embolism. After 2 weeks of Xarelto he will then switch over to aspirin 81 mg twice daily for an additional 2 weeks. Patient voiced understanding of DVT prophylaxis plan. 4. PT/OT: Weightbearing as tolerated with walker 5. H & H: 13.0/41.3, asymptomatic. Labs have been reviewed 6. Reactive leukocytosis: 18.2, Afebrile. Patient did receive Decadron intraoperatively. No clinical signs of infection. 7. Consultation infectious disease: Case was discussed with Dr. Dev Whitehead and at this time we are consulting infectious disease Dr. Ocampo. I did contact infectious disease over the phone. Patient did have positive findings on microbiology which revealed so far preliminary wound culture on the femoral membrane positive for gram-negative boni possible Pseudomonas. The other cultures are still pending. Patient was initially placed on doxycycline postoperatively. Appreciate recommendations from infectious disease for further treatment and medications. I did advise the patient the possibility of PICC line and 6 weeks of IV antibiotics. This may affect patient's postoperative discharge planning. 8. Encouraged Incentive Spirometry 9. Patient is aware of postoperative constipation that can occur from 1-3 days postoperatively. Will continue with senna 2 tablets twice daily until first bowel movement. Patient was advised if not having a bowel movement after day 3 she is to contact orthopedics so appropriate change can be made. Patient voiced understanding. 10. Continue postoperative medical treatment per medicine: Case was discussed with medicine 11. Disposition: Due to patient's findings on culture infectious disease has been consulted. Patient will require additional night stay until we can get appropriate recommendations from infectious disease. This will most likely require PICC line and IV antibiotics. Case management is currently on board for discharge planning and they were advised of above findings. Patient will continue with current medications listed above. Once infectious disease has established plan we can then discuss discharge planning. I have reviewed the [place] Automated Rx Reporting System (OARRS) report for this patient for refill pattern and other prescriber involvement as part of the appropriate surveillance for the provision of acute and chronic controlled medications. The report was requested and reviewed on the date of this entry and was considered in the prescribing process. This dictation was created using voice recognition software. Phonetic and/or grammatical errors may exist.
--- NOTE | 2023-08-31 11:43 | CASEMGMT ---
JO ANN BUTLER Assessment: Face to Face with pt for initial transition planning/care coordination assessment. JO ANN BUTLER introduced self and role at [facility], pt voices understanding and consents to assessment. Pt is A&O x4 and answers all questions appropriately at this time. Pt sitting up in chair in no distress. Care providers, pharmacy, and demographics verified/updated. Admitting Dx: revision left total knee arthroplasty PCP:Neda Specialists:heidi Whitehead; SAL[facility] cardio Preferred Pharmacy: [facility] Insurance: [facility] Prescription Benefit: yes LNOK: Luis Miguel Caceres, son; Alyson Caceres, dil Living Arrangements: Pt lives alone in a two story home with 2 steps to enter. Pt reports prior to surgery he was I in ADL's and IADL's. Pt denies concerns at home. Pt has a bed on main floor and a half bath. Transportation: Pt drives self and denies concerns with transportation. Pt dil will transport pt until he can drive again medically. DME:[facility] with sufficient supply of strips and lancets, pt has insulin but has not taken for the last 2 mos, FWW, shower chair HHC/SNF: Pt denies hx of Pt states no concerns with going home at time of dc. Pt has OP therapy set up for 09/04 at [facility]. Pt is aware of ID consult, reviewed options should pt need IV atb. Pt states no further concerns/needs. CM to follow. Advised pt to ask CM if any further question/concerns/needs arise, voices understanding. Pt Goal: Home with outpt therapy already set up Plan: TBD pending ID laura Salgado RN, CM
[2023-08-31 11:56] LABS: Bedside Glucose 240 mg/dL (74-106)
--- NOTE | 2023-08-31 12:40 | CASEMGMT ---
Social Work SW met with pt to discuss advance directives.? Pt confirms he has completed a living will and health care POA naming his ex- in [place]. Pt states that he does not want to change HCPOA, but wants his son Luis Miguel to remain his contact for medical care while at the hospital. SW provided education on HCPOA and the legal precedence. Pt states understanding.? Pt notified that documents are not on file at [facility] and SW requested they be brought in for scanning into the EMR.? COLLIN Simon
[2023-08-31] MEDS: Cefepime HCl 2 GM in 0.9% Normal Saline (100mL MB+) 100 ML IV ×2 (15:59→21:46)
--- NOTE | 2023-08-31 16:19 | CON.PCM.ID_ITS ---
Assessment & Plan Assessment/Plan (1) Prosthetic joint infection: PLAN: Now s/p revision 08/30/23 of L knee by Dr. Whitehead. Surg cx 1 of 3 with GNR, possibly pseudomonas. Will stop doxy. Will start cefepime and order picc with 6 weeks iv abx, stop date 10/12/23. Will adjust cefepime as needed as more cx data results. Will follow, thank you HPI Consult Data Date of Consult: 08/31/23 HPI Narrative Reason for Consultation: PJI HPI Narrative: SHELBI GARCIA, is a 68 M who presented 08/30/23 for L knee revision due to hardware loosening. Reports some chronic L knee swelling and redness, mild pain. No fever or chills, no recent abx. Taken to OR by Dr. Whitehead, now surg cx with GNR. Feeling ok, pain controlled, no n/v/d. Full ROS performed and neg except as noted above. [facility] Medical History Wears glasses Anxiety Depression Insulin dependent diabetes mellitus Arthritis High cholesterol DVT (deep venous thrombosis) Back pain DDD (degenerative disc disease), lumbar TIA (transient ischemic attack) Dietary restriction Former smoker BiPAP (biphasic positive airway pressure) dependence Shortness of breath on exertion History of pain when walking History of edema History of stress test Cardiology follow-up encounter History of CHF (congestive heart failure) History of heart attack Pain Diabetic neuropathy Type 2 diabetes mellitus BPH (benign prostatic hyperplasia) History of pulmonary embolism Presence of stent in coronary artery (~02/09/11) Atherosclerotic heart disease of [place] coronary artery without angina pectoris Abnormal laboratory test Medical management DVT (deep venous thrombosis) Tobacco dependence in remission HLD (hyperlipidemia) CAD (coronary artery disease) Benign essential HTN Home Medications ?Medication ?Instructions ?Recorded ?Last Taken ?Type escitalopram oxalate 20 mg tablet 20 mg PO DAILY ANTIDEPRESSANT 01/31/13 12/08/14 History 20 MG rosuvastatin 40 mg tablet 40 mg PO DAILY CHOLESTEROL 01/31/13 06/22/21 History vitamin B complex 1 ea PO DAILY SUPPLEMENT 01/31/13 06/22/21 History clopidogrel 75 mg tablet 75 mg PO DAILY BLOOD THINNER ##30 05/22/13 08/26/23 Rx amlodipine 10 mg tablet 10 mg PO DAILY BP 06/16/20 08/29/23 History cyanocobalamin (vitamin B-12) 500 500 mcg PO DAILY SUPPLEMENT 06/16/20 06/22/21 History mcg tablet furosemide 40 mg tablet 40 mg PO DAILY WATER PILL 06/16/20 08/26/23 History insulin glargine 100 unit/mL (3 20 unit subcut QPM DIABETES 06/16/20 06/22/21 20:00 History mL) subcutaneous pen (Lantus Solostar U-100 Insulin) insulin lispro 100 unit/mL 8 unit subcut TID DIABETES 06/16/20 08/29/23 History subcutaneous pen (Humalog KwikPen (U-100) Insulin) losartan 50 mg tablet 50 mg PO DAILY BP 06/16/20 08/29/23 History metformin 1,000 mg tablet 1,000 mg PO BID DIABETES 06/16/20 08/29/23 History metoprolol succinate 50 mg 50 mg PO DAILY BP 06/16/20 08/26/23 History tablet,extended release 24 hr albuterol sulfate 90 mcg/actuation 1 - 2 puff inhalation Q4H PRN PRN 12/16/20 Unknown Rx aerosol inhaler (Ventolin HFA) Wheezing or cough #1 inh naproxen 500 mg tablet 500 mg PO DAILY PRN Muscle Pain 12/31/20 06/22/21 History empagliflozin 10 mg tablet 10 mg PO MOWEFR DIABETES 11/19/21 08/28/23 History (Jardiance) gabapentin 400 mg capsule 400 mg PO TID NEUROPATHY 08/03/23 08/30/23 07:00 History aspirin 81 mg tablet,delayed 81 mg PO DAILY check with primary 08/30/23 08/30/23 07:00 History release (Adult Aspirin Regimen) cefepime 2 gram solution for 2 g IV Q12 42 days #84 ea 08/31/23 Unknown Rx injection Allergy/AdvReac Type Severity Reaction Status Date / Time diphenhydramine HCl (From Allergy Hives Verified 08/30/23 09:17 Benadryl) Family History Other CVA (cerebral vascular accident) Heart disease Hypertension Myocardial infarction Surgical History (Updated 08/31/23 @ 11:42 by Adria CRAIG, PA-C) Hx of arthroscopic knee surgery Hx of tonsillectomy IVC filter removal History of left heart catheterization (LHC) (~03/14/23) Hx of LASIK History of bilateral cataract extraction History of bilateral knee replacement Presence of coronary angioplasty implant and graft (~02/09/11) Social History Smoking Status: Former smoker how long ago did patient quit smokin years ago alcohol intake: never substance use type: does not use caffeine: Yes Type: coffee Number of servings: 4 Physical Exam Const alert, oriented x3 and no apparent distress General Appearance: cooperative HEENT normocephalic and head/scalp atraumatic Eyes PERRL and EOMs intact bilaterally Neck supple and No nodes Resp normal air movement and clear to auscultation bilaterally Cardio regular rate and regular rhythm GI soft to palpation, non-tender and non-distended Extremity General Extremity: Negative for edema Skin Skin Narrative: LLE wrapped Neuro CN's II-XII intact bilaterally Lab / Micro Data Attestation: I reviewed the patient's lab results. 08/31/23 06:56 08/31/23 06:56 Labs: Laboratory Results - last 24 hr 08/30/23 17:54: POC Glucose 218 H 08/30/23 21:37: POC Glucose 208 H 08/31/23 06:56: WBC 18.2 H, RBC 4.22 L, Hgb 13.0, Hct 41.3, MCV 97.9 H, MCH 30.8, MCHC 31.5 L, RDW Std Deviation 50.6 H, RDW Coeff of Pro 14.0, Plt Count 179, MPV 10.9, Sodium 137, Potassium 4.2, Chloride 106, Carbon Dioxide 25.0, Anion Gap 6, BUN 25 H, Creatinine 1.31 H, Estim Creat Clear Calc 64.43, Est GFR (MDRD) Af Amer 70, Est GFR (MDRD) Non-Af 57 L, BUN/Creatinine Ratio 19.1, G lucose 150 H, Calcium 9.0 08/31/23 11:37: POC Glucose 240 H Micro: Microbiology 08/30/23 12:30 Tissue - Knee Gram Stain - Final 08/30/23 12:30 Tissue - Knee Wound Culture - Preliminary GNR Poss Pseudomonas sp 08/30/23 12:30 Tissue - Knee Gram Stain - Final 08/30/23 12:30 Tissue - Knee Gram Stain - Final
[2023-08-31 17:42] LABS: Bedside Glucose 212 mg/dL (74-106)
[2023-08-31] MEDS: Insulin Glargine-YFGN 100 UNIT/ML Pen 20 UNIT SC (21:09)
[2023-08-31 21:32] LABS: Bedside Glucose 162 mg/dL (74-106)
[2023-09-01] VITALS (7 sets, daily range): BP systolic 119–156; BP diastolic 54–66; PULSE 61–70; RESP 15–18; TEMP 36.3–37.2; O2SAT 95–98
[2023-09-01] MEDS: Rivaroxaban 10 MG Tablet PO (05:55)
[2023-09-01] MEDS: Acetaminophen 500 MG Tablet 1000 MG PO ×2 (05:55→13:44)
[2023-09-01] MEDS: Gabapentin 400 MG Capsule PO ×2 (05:56→13:43)
[2023-09-01] MEDS: Cefepime HCl 2 GM in 0.9% Normal Saline (100mL MB+) 100 ML IV ×2 (05:56→13:44)
[2023-09-01] MEDS: 0.9% Saline Lock 10 ML Syringe IV ×2 (05:58→13:44)
[2023-09-01] MEDS: oxyCODONE 5 MG Tablet PO ×2 (06:37→11:35)
[2023-09-01 07:11] LABS: Bedside Glucose 113 mg/dL (74-106)
[2023-09-01 07:32] LABS: Absolute Lymphocyte Count 3.26 X10^3/uL (0.83-4.51); Absolute Neutrophil Count 8.5 X10^3/uL (2.0-7.7); Basophil# 0.06 X10^3/uL; Basophil% 0.5 % (0-1); Eosinophil# 0.29 X10^3/uL; Eosinophils% 2.2 % (0-5); Hematocrit 39.2 % (40-54); Hemoglobin 12.5 g/dL (13.0-16.5); Lymphocyte # 3.26 X10^3/ul (0.83-4.51); Lymphocyte % 25.1 % (19-41); Mean Corp Hgb Conc 31.9 g/dL (32-36); Mean Corpuscular Hgb 31.5 pg (27.0-32.0); Mean Corpuscular Volume 98.7 fL (80-94); Monocyte# 0.79 X10^3/uL; Monocyte% 6.1 % (0-10); NRBC Flagged by Analyzer 0 % (0-5); Neutrophil # 8.53 X10^3/uL (2.7-7.7); Neutrophil % 65.8 % (47-70); Platelet Count 151 K/mm3 (150-450); RBC Distribution Width CV 14.6 % (11.6-14.6); RBC Distribution Width SD 53.1 fl (35.1-43.9); Red Blood Count 3.97 M/mm3 (4.6-6.2)
[2023-09-01 08:01] LABS: Anion Gap 4 (5-15); BUN 30 mg/dL (7-18); BUN/Creat Ratio 24.2 RATIO (10-20); Calcium,Total 8.4 mg/dL (8.5-10.1); Chloride 108 mmol/L (98-107); Creatinine, Serum 1.24 mg/dL (0.70-1.30); EST Glomerular Filtration Rate 61 mL/min (>60); Est Glom Filt Rate - Afr Amer 74 mL/min (>60); Estimated Creatinine Clearance 68.07 ml/min; Glucose 128 mg/dL (74-106); Potassium 4.1 mmol/L (3.5-5.1); Sodium Level 138 mmol/L (136-145)
[2023-09-01] MEDS: Atorvastatin Calcium 80 MG Tablet PO (08:04)
[2023-09-01] MEDS: Cyanocobalamin 500 MCG Tablet PO (08:04)
[2023-09-01] MEDS: Empagliflozin 10 MG Tablet PO (08:04)
[2023-09-01] MEDS: Furosemide 40 MG Tablet PO (08:04)
[2023-09-01] MEDS: Famotidine 20 MG Tablet PO (08:04)
[2023-09-01] MEDS: Losartan Potassium 50 MG Tablet PO (08:04)
[2023-09-01] MEDS: amLODIPine 10 MG Tablet PO (08:05)
[2023-09-01] MEDS: Aspirin E.C. 81 MG Tablet PO (08:05)
[2023-09-01] MEDS: Escitalopram Oxalate 20 MG Tablet PO (08:05)
[2023-09-01] MEDS: metFORMIN HCl 1,000 MG Tablet 1000 MG PO (08:05)
[2023-09-01] MEDS: Metoprolol(XL)Succ 50 MG Tablet PO (08:05)
[2023-09-01] MEDS: Clopidogrel Bisulfate 75 MG Tablet PO (08:05)
[2023-09-01] MEDS: Ensure Surgery 237 ML LIQUID PO ×2 (08:08→11:28)
[2023-09-01 08:28] LABS: Bedside Glucose 119 mg/dL (74-106)
--- NOTE | 2023-09-01 09:45 | CASEMGMT ---
Discharge Planning A list of HH providers including quality and resource use data and consistent with the patient's preferred geographic region, medical needs, and insurance network was created in [facility] Guide.? This list was provided to the Freida Keenan Discharge Planning Asst.
--- NOTE | 2023-09-01 10:55 | CASEMGMT ---
Addendum entered by Antonia Curtis 09/01/23 15:34: 1510-JO ANN BUTLER into pt room, pt states he feels comfortable with infusion. Monse present in room and states pt did well. Pt has had two doses today. Pt ready for dc. Pt is aware he will need to call on Monday to set up f/u appt with . He is aware of appt on for picc dressing and labs as well. Pt denies any further needs at this time. Addendum entered by Antonia Curtis 09/01/23 14:26: TC to [facility] pharmacy, cost of xarelto is $20.28. Addendum entered by Antonia Curtis 09/01/23 13:59: Uploaded dc instructions to [facility] at this time. Monse here for education for pt from [facility]. Addendum entered by Antonia Curtis 09/01/23 13:12: JO ANN BUTLER into pt room, he has spoke to [facility] and is aware that he will have education prior to leaving hospital. Pt has no preference for lab draw and picc dressing change as far as morning or afternoon. He is aware this will be scheduled and placed on his dc instructions. TC to [facility]fusion, spoke with Susan, order faxed at this time and she is aware pt will need scheduled for . She will call JO ANN BUTLER back with time of appt. Addendum entered by Antonia Curtis 09/01/23 12:57: Spoke with educator Lula from [facility], Monse will come to the hospital today to educate pt and bring extension tubing. Will plan for dc today. [facility] [place] aware. Addendum entered by Antonia Curtis 09/01/23 12:48: Pt copay for medication is $70.77. Pharmacy fee with go thru [facility] covered at 80% once $5100 OOP is med then covered at 100%. Pt is aware of this and would like to proceed. Updated CSI through [facility]. Original Note: JO ANN BUTLER into pt room, discussed with pt IV atb. Pt would really like to keep outpt therapy as scheduled. Pt is aware that should he have a HH nurse, he would need to have therapy in the home as well. He would like to do infusion on own. Discussed coming into the infusion center for weekly picc dressing changes and labs, pt is agreeable to this. Provided pt with a verbal in network list of Infusion Companies, pt chose [facility]. Referral sent to [facility] to see if education could be provided per pt request to be able to do outpt therapy. Will await response. IV medication will be push. Pt can be sent home with extension tubing for this.
[2023-09-01] MEDS: Insulin Lispro 100 UNIT/ML INSULN.PEN 8 UNIT SC (11:35)
[2023-09-01 11:55] LABS: Bedside Glucose 147 mg/dL (74-106)
--- NOTE | 2023-09-01 13:27 | PCM.PN.ORT ---
Subjective Subjective The patient was sitting in bed upon examination. Patient denies any chest pain, shortness of breath, dizziness, lightheadedness, nausea or vomiting, or calf pain. Pain is controlled on medications. No adverse overnight events. Patient overall is doing well with regards to his left knee. Postoperatively cultures did reveal Pseudomonas on intraoperative cultures. Infectious disease has been consulted and patient received PICC line. He is currently on cefepime postoperatively for 6 weeks. Case management has been on board for discharge planning. Patient would like to go home and self administer as well as do outpatient physical therapy. Objective Data Objective Data Vital Signs: Vital Signs Temp Pulse Resp BP Pulse Ox O2 Del Method O2 Flow Rate 97.8 F 63 18 127/54 H 98 Room Air 4 09/01/23 11:30 09/01/23 11:30 09/01/23 11:30 09/01/23 11:30 09/01/23 11:30 09/01/23 11:30 08/30/23 15:30 Oxygen Flow Rate (L/min) 4 Oxygen Delivery Method Room Air Weight: 117.9 kg Body Mass Index (BMI) 40.7 Intake & Output: Intake and Output for Last 24 Hours 08/30/23 08/31/23 09/01/23 23:59 23:59 23:59 Intake Total 2442 / 2442 1550 / 1750 500 / 500 Output Total 650 / 650 1200 / 1800 1450 / 1450 Balance 1792 / 1792 350 / -50 -950 / -950 Lab / Micro Data 09/01/23 07:07 09/01/23 07:07 Labs: Laboratory Results - last 24 hr 08/31/23 17:22: POC Glucose 212 H 08/31/23 21:07: POC Glucose 162 H 09/01/23 06:41: POC Glucose 113 H 09/01/23 07:07: WBC 13.0 H, RBC 3.97 L, Hgb 12.5 L, Hct 39.2 L, MCV 98.7 H, MCH 31.5, MCHC 31.9 L, RDW Std Deviation 53.1 H, RDW Coeff of Pro 14.6, Plt Count 151, MPV 11.0, Immature Gran % (Auto) 0.300, Neut % (Auto) 65.8, Lymph % (Auto) 25.1, [place] % (Auto) 6.1, Eos % (Auto) 2.2, Baso % (Auto) 0.5, Absolute Neuts (auto) 8.5 H, Absolute Lymphs (auto) 3.26, Nucleated RBC % 0, Sodium 138, Potassium 4.1, Chloride 108 H, Carbon Dioxide 26.0, Anion Gap 4 L, BUN 30 H, Creatinine 1.24, Estim Creat Clear Calc 68.07, Est GFR (MDRD) Af Amer 74, Est GFR (MDRD) Non-Af 61, BUN/Creatinine Ratio 24.2 H, Glucose 128 H, Calcium 8.4 L 09/01/23 08:02: POC Glucose 119 H 09/01/23 11:30: POC Glucose 147 H Micro: Microbiology 08/30/23 12:30 Tissue - Knee Gram Stain - Final 08/30/23 12:30 Tissue - Knee Wound Culture - Preliminary Mixed Gram Positive Organisms 08/30/23 12:30 Tissue - Knee Anaerobic Culture - Preliminary No growth in 48 hours. 08/30/23 12:30 Tissue - Knee Gram Stain - Final 08/30/23 12:30 Tissue - Knee Wound Culture - Preliminary No growth-Final to follow 08/30/23 12:30 Tissue - Knee Anaerobic Culture - Preliminary No growth in 48 hours. 08/30/23 12:30 Tissue - Knee Gram Stain - Final 08/30/23 12:30 Tissue - Knee Wound Culture - Final Pseudomonas aeruginosa 08/30/23 12:30 Tissue - Knee Anaerobic Culture - Preliminary No growth in 48 hours. 08/08/23 10:56 Swab (Method) Nasal Screen MRSA/MSSA - Final Physical Exam Narrative Vital signs stable and afebrile. SCDs and ANABELLE hose are in place bilaterally Patient is able to plantarflex and dorsiflex actively. Sensation is intact to light touch to saphenous, sural, superficial and deep peroneal, and tibial distribution. Quarter sized drainage over middle one third of the incision with remaining incision clean dry and intact Negative Homans bilaterally, negative signs and symptoms of DVT. Const alert, oriented x3 and no apparent distress Assessment & Plan Assessment/Plan (1) Status post revision of total replacement of left knee: PLAN: 1. S/P left revision total knee arthroplasty POD #2 2. Continue Pain Medications: Tylenol and oxycodone. 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 3. DVT Prophylaxis: Patient will currently be on Xarelto 10 mg once daily for 2 weeks postoperatively due to past history of pulmonary embolism. After 2 weeks of Xarelto he will then switch over to aspirin 81 mg twice daily for an additional 2 weeks. Patient voiced understanding of DVT prophylaxis plan. 4. PT/OT: Weightbearing as tolerated with walker 5. H & H: 12.5/39.2, asymptomatic. Labs have been reviewed 6. Reactive leukocytosis: Trending down at 13.0, Afebrile. Patient did receive Decadron intraoperatively. No clinical signs of infection on exam but patient did have positive cultures for Pseudomonas. 7. Consultation infectious disease: Case was discussed with Dr. Dev Whitehead. Dr. Ocampo was consulted and patient has received PICC line and will get IV antibiotic cefepime 6 weeks postoperatively. Patient's doxycycline has been stopped yesterday. Patient is willing to proceed with administering antibiotics at home in which appropriate instruction will be given prior to discharge. Case management is currently on board with setting this up. Patient will require 2-week postoperative follow-up with infectious disease for continued management. Appreciate recommendations. 8. Encouraged Incentive Spirometry 9. Patient has had bowel movement today and will use stool softener on an as-needed basis. 10. Continue postoperative medical treatment per medicine: Case was discussed with medicine 11. Disposition: Patient overall is doing well with regards to the right knee and has been appropriately set up for IV antibiotics. He does have a PICC line and will receive cefepime for 6 weeks postoperatively managed by infectious disease. Patient will require follow-up with infectious disease in 2 weeks. Case management is currently on board with setting this up. Patient will follow-up per postoperative instructions. He would like his medications E scribed to [facility]. Upon discharge he will contact our office with any concerns or questions. Patient would like temporary handicap placard that family member will cherry picker operator in the office. I have reviewed the [place] Automated Rx Reporting System (OARRS) report for this patient for refill pattern and other prescriber involvement as part of the appropriate surveillance for the provision of acute and chronic controlled medications. The report was requested and reviewed on the date of this entry and was considered in the prescribing process. This dictation was created using voice recognition software. Phonetic and/or grammatical errors may exist.
--- NOTE | 2023-09-01 13:32 | PCM.DC ---
Discharge Instructions Diet Discharge Diet: No restrictions Activity Discharge Activity: May Not Drive (No driving until you can walk 100 feet with use of a cane and off all narcotics) May shower in (days): 1 (Please turn dressing away from water. Okay to get wet as long as dressing is intact to skin.) Ice area for (Minutes): 20 (Every 1-2 hours while awake[address] Please place barrier between the skin and ice pack.) Weight Bearing Status: Weight bearing as tolerated Keep extremity elevated above heart level: Operative Extremity Dressing / Incision Call your doctor if your incision/area has: Continuous Slow Oozing, Sudden Increased Bleeding, Increased Pain/ Swelling, Increased Redness and Foul Smelling Discharge Call your doctor if you observe: Fever of 101 or Higher, Coldness, Increased Pain, Numbness or Tingling, Change in Color, Shortness of breath, Chest pain, Calf discomfort and Uncontrolled pain Remove Dressing in: 3 days (Okay to remove dressing on September 04, 2023) Additional Dressing/Incision Instructions:: Follow [facility] Post-op Instructions. Once postoperative dressing has been removed only use gentle soap and water over the incision. Do not use any ointments, Neosporin, salves, alcohol pads over the incision for 6 weeks postoperatively. Do not submerge underwater for 6 weeks postoperatively. Continue with ANABELLE hose/elastic stockings for 2 weeks postoperatively. May remove at nighttime but needs to be placed back on the leg during the day. Do NOT use alcohol with narcotic pain medication. Do NOT make important decisions while taking narcotic medication. If you have problems with taking your medication (rash, itching, nausea, etc.) call the office at once. Follow Up Care Test Results: Test results from this visit will be discussed in further detail at your follow-up appointment, if applicable. Discharge Plan Admission Admit Date/Time: 08/30/23 08:48 Attending Provider: Dev Whitehead Primary Care Provider: Fatoumata Red Consulting Providers: Nicanor Whitney; Clara Aguero; Tian Pelayo; Shagufta Soler; Conrad Ocampo Discharge Orders/Prescriptions Prescriptions: New cefepime 2 gram Recon Soln 2 g IV Q12 42 Days Qty: 84 0RF Rx Instructions: stop date 10/12/23. Dx: knee PJI Weekly bmp, cbc, and esr. Fax to [phone]. Routine picc care per protocol. acetaminophen 500 mg Tablet 1,000 mg PO TID Qty: 90 0RF Rx Instructions: Do not take more than 3000 mg Tylenol in a 24-hour period. oxycodone 5 mg Tablet 5 - 10 mg PO Q4H PRN PRN (Reason: Pain Score 4-10) 7 Days Qty: 56 0RF Xarelto 10 mg Tablet 10 mg PO DAILY@0600 Qty: 13 0RF Rx Instructions: Take for 2 weeks postoperatively for DVT prophylaxis due to previous history of pulmonary embolism famotidine 20 mg Tablet 20 mg PO DAILY Qty: 28 0RF Continued furosemide 40 mg tablet 40 mg PO DAILY insulin lispro [Humalog KwikPen Insulin] 100 unit/mL insulin pen 8 unit SC TID insulin glargine [Lantus Solostar U-100 Insulin] 100 unit/mL (3 mL) insulin pen 20 unit SC QPM losartan 50 mg tablet 50 mg PO DAILY metoprolol succinate 50 mg tablet extended release 24 hr 50 mg PO DAILY amlodipine 10 mg tablet 10 mg PO DAILY metformin 1,000 mg tablet 1,000 mg PO BID cyanocobalamin (vitamin B-12) 500 mcg tablet 500 mcg PO DAILY Jardiance 10 mg tablet 10 mg PO MOWEFR vitamin B complex 1 EACH capsule 1 ea PO DAILY Patient Comments: vitamin escitalopram oxalate 20 MG tablet 20 mg PO DAILY Patient Comments: antidepressant rosuvastatin 40 MG tablet 40 mg PO DAILY Patient Comments: hyperlipidemia/cholesterol lowering clopidogrel 75 MG tablet 75 mg PO DAILY Qty: 30 0RF Patient Comments: antithrombolytic albuterol sulfate [Ventolin HFA] 90 mcg/actuation HFA aerosol inhaler 1 - 2 puff inhalation Q4H PRN PRN (Reason: Wheezing or cough) Qty: 1 0RF gabapentin 400 mg capsule 400 mg PO TID aspirin [Adult Aspirin Regimen] 81 mg tablet,delayed release (DR/EC) 81 mg PO DAILY Discontinued naproxen 500 mg tablet 500 mg PO DAILY PRN (Reason: Muscle Pain) Referrals / Follow Up: Physical,Therapy [Other] - 09/05/23 10:00 am Fatoumata Red MD [Primary Care Provider] - Adria Irving PA-C [Med Staff - [facility]] - 09/15/23 9:00 am Disposition Disposition (needs filled in before D/C Order can be placed): Home, Self Care
== END 2023-09-01 16:35 | disposition home or self-care (01) | DRG 467 ==
LOC: ACINP 08:50 → MS3 15:59
PROVIDERS: Anesthesiology; Internal Medicine; Admitting Provider Specialist; PCP Family Medicine; Referring Provider Specialist; Visit Provider Specialist
PROC: 0SRD0J9 Replacement of Left Knee Joint with Synthetic Substitute, Cemented, Open Approach (ICD-10-PCS; principal; 2023-08-30 11:05)
DX: T84.84XA Pain due to internal orthopedic prosthetic devices, implants and grafts, initial encounter (principal); I13.0 Hypertensive heart and chronic kidney disease with heart failure and stage 1 through stage 4 chronic kidney disease, or unspecified chronic kidney disease; Z68.41 Body mass index [BMI] 40.0-44.9, adult; T84.54XA Infection and inflammatory reaction due to internal left knee prosthesis, initial encounter; T84.033A Mechanical loosening of internal left knee prosthetic joint, initial encounter; D47.2 Monoclonal gammopathy; K21.9 Gastro-esophageal reflux disease without esophagitis; E11.22 Type 2 diabetes mellitus with diabetic chronic kidney disease; I50.9 Heart failure, unspecified; N18.30 Chronic kidney disease, stage 3 unspecified; E11.40 Type 2 diabetes mellitus with diabetic neuropathy, unspecified; Z79.4 Long term (current) use of insulin; E11.51 Type 2 diabetes mellitus with diabetic peripheral angiopathy without gangrene; E66.01 Morbid (severe) obesity due to excess calories; F32.A Depression, unspecified; I25.10 Atherosclerotic heart disease of native coronary artery without angina pectoris; M19.90 Unspecified osteoarthritis, unspecified site; E78.00 Pure hypercholesterolemia, unspecified; G47.30 Sleep apnea, unspecified; Y79.8 Miscellaneous orthopedic devices associated with adverse incidents, not elsewhere classified; Z79.01 Long term (current) use of anticoagulants; Z79.02 Long term (current) use of antithrombotics/antiplatelets; Z79.82 Long term (current) use of aspirin; Z87.891 Personal history of nicotine dependence; Z95.5 Presence of coronary angioplasty implant and graft; Z96.653 Presence of artificial knee joint, bilateral; Z86.718 Personal history of other venous thrombosis and embolism; Z86.711 Personal history of pulmonary embolism
CPT/HCPCS: 36415; 36569; 71046; 73560; 80048; 82040; 82962; 83036; 83735; 85025; 85027; 87015; 87070; 87075; 87077; 87081; 87102; 87116; 87176; 87184; 87186; 87205; 87206; 93005; 94668; 97162; 97166; 97530; 99252; C1776; J7120; A4216; G0463; J2405; J3475

== ENCOUNTER 2023-09-07 13:59 | Outpatient (CLI) | payer MEDICARE, SELFPAY ==
[2023-09-07 14:46] LABS: Erythrocyte Sedimentation Rate 85 mm/hr (0-20)
[2023-09-07 14:47] LABS: Hematocrit 37.8 % (40-54); Mean Corp Hgb Conc 31.7 g/dL (32-36); Mean Corpuscular Hgb 30.6 pg (27.0-32.0); Mean Corpuscular Volume 96.4 fL (80-94); Mean Platelet Vol. 10.8 fl (6.2-12.0); Platelet Count 236 K/mm3 (150-450); RBC Distribution Width CV 13.8 % (11.6-14.6); RBC Distribution Width SD 48.7 fl (35.1-43.9); Red Blood Count 3.92 M/mm3 (4.6-6.2); White Blood Count 9.2 K/mm3 (4.4-11.0)
[2023-09-07 14:56] LABS: Anion Gap 5 (5-15); BUN 24 mg/dL (7-18); BUN/Creat Ratio 17.8 RATIO (10-20); Calcium,Total 8.8 mg/dL (8.5-10.1); Chloride 102 mmol/L (98-107); Creatinine, Serum 1.35 mg/dL (0.70-1.30); EST Glomerular Filtration Rate 56 mL/min (>60); Est Glom Filt Rate - Afr Amer 67 mL/min (>60); Glucose 103 mg/dL (74-106); Potassium 3.9 mmol/L (3.5-5.1); Sodium Level 136 mmol/L (136-145)
== END 2023-09-07 23:59 | disposition home or self-care (01) ==
LOC: MEDOUTP 13:59
PROVIDERS: PCP Family Medicine; Referring Provider Internal Medicine Infectious Disease; Visit Provider Internal Medicine Infectious Disease
DX: T84.50XA Infection and inflammatory reaction due to unspecified internal joint prosthesis, initial encounter (principal)
CPT/HCPCS: 36592; 80048; 85027; 85652; A4216

== ENCOUNTER 2023-09-14 14:22 | Outpatient (CLI) | payer MEDICARE, SELFPAY ==
[2023-09-14 15:05] LABS: Erythrocyte Sedimentation Rate 54 mm/hr (0-20)
[2023-09-14 15:07] LABS: Mean Corp Hgb Conc 31.6 g/dL (32-36); Mean Corpuscular Hgb 30.6 pg (27.0-32.0); Mean Corpuscular Volume 96.9 fL (80-94); Mean Platelet Vol. 10.2 fl (6.2-12.0); Platelet Count 283 K/mm3 (150-450); RBC Distribution Width CV 14.2 % (11.6-14.6); RBC Distribution Width SD 50.4 fl (35.1-43.9); Red Blood Count 3.92 M/mm3 (4.6-6.2); White Blood Count 8.9 K/mm3 (4.4-11.0)
[2023-09-14 15:10] LABS: Anion Gap 5 (5-15); BUN 30 mg/dL (7-18); BUN/Creat Ratio 22.9 RATIO (10-20); Calcium,Total 9.1 mg/dL (8.5-10.1); Chloride 107 mmol/L (98-107); Creatinine, Serum 1.31 mg/dL (0.70-1.30); EST Glomerular Filtration Rate 57 mL/min (>60); Est Glom Filt Rate - Afr Amer 70 mL/min (>60); Glucose 166 mg/dL (74-106); Potassium 4.1 mmol/L (3.5-5.1); Sodium Level 139 mmol/L (136-145)
== END 2023-09-14 23:59 | disposition home or self-care (01) ==
LOC: MEDOUTP 14:22
PROVIDERS: PCP Family Medicine; Referring Provider Internal Medicine Infectious Disease; Visit Provider Internal Medicine Infectious Disease
DX: T84.50XA Infection and inflammatory reaction due to unspecified internal joint prosthesis, initial encounter (principal)
CPT/HCPCS: 36592; 80048; 85027; 85652; A4216

== ENCOUNTER 2023-09-21 13:38 | Outpatient (CLI) | payer MEDICARE, SELFPAY ==
[2023-09-21 14:18] LABS: Erythrocyte Sedimentation Rate 39 mm/hr (0-20)
[2023-09-21 14:20] LABS: Hematocrit 39.2 % (40-54); Hemoglobin 12.2 g/dL (13.0-16.5); Mean Corp Hgb Conc 31.1 g/dL (32-36); Mean Corpuscular Volume 96.6 fL (80-94); Mean Platelet Vol. 10.8 fl (6.2-12.0); Platelet Count 217 K/mm3 (150-450); RBC Distribution Width CV 13.5 % (11.6-14.6); RBC Distribution Width SD 48.5 fl (35.1-43.9); Red Blood Count 4.06 M/mm3 (4.6-6.2); White Blood Count 8.2 K/mm3 (4.4-11.0)
[2023-09-21 14:29] LABS: Anion Gap 6 (5-15); BUN 34 mg/dL (7-18); BUN/Creat Ratio 24.5 RATIO (10-20); Chloride 106 mmol/L (98-107); Creatinine, Serum 1.39 mg/dL (0.70-1.30); EST Glomerular Filtration Rate 54 mL/min (>60); Est Glom Filt Rate - Afr Amer 65 mL/min (>60); Glucose 155 mg/dL (74-106); Potassium 4.6 mmol/L (3.5-5.1); Sodium Level 139 mmol/L (136-145)
== END 2023-09-21 23:59 | disposition home or self-care (01) ==
PROVIDERS: PCP Family Medicine; Referring Provider Internal Medicine Infectious Disease; Visit Provider Internal Medicine Infectious Disease
DX: T84.50XA Infection and inflammatory reaction due to unspecified internal joint prosthesis, initial encounter (principal)
CPT/HCPCS: 36592; 80048; 85027; 85652; A4216

== ENCOUNTER 2023-09-28 13:40 | Outpatient (CLI) | payer MEDICARE, SELFPAY ==
[2023-09-28 14:34] LABS: Hematocrit 40.6 % (40-54); Hemoglobin 12.6 g/dL (13.0-16.5); Mean Corpuscular Hgb 30.2 pg (27.0-32.0); Mean Corpuscular Volume 97.4 fL (80-94); Platelet Count 173 K/mm3 (150-450); RBC Distribution Width CV 13.6 % (11.6-14.6); RBC Distribution Width SD 48.8 fl (35.1-43.9); Red Blood Count 4.17 M/mm3 (4.6-6.2); White Blood Count 8.3 K/mm3 (4.4-11.0)
[2023-09-28 14:45] LABS: Anion Gap 4 (5-15); BUN 44 mg/dL (7-18); BUN/Creat Ratio 28.9 RATIO (10-20); Chloride 106 mmol/L (98-107); Creatinine, Serum 1.52 mg/dL (0.70-1.30); EST Glomerular Filtration Rate 48 mL/min (>60); Est Glom Filt Rate - Afr Amer 59 mL/min (>60); Glucose 149 mg/dL (74-106); Potassium 3.9 mmol/L (3.5-5.1); Sodium Level 139 mmol/L (136-145)
[2023-09-28 15:03] LABS: Erythrocyte Sedimentation Rate 34 mm/hr (0-20)
== END 2023-09-28 23:59 | disposition home or self-care (01) ==
LOC: MEDOUTP 13:41
PROVIDERS: PCP Family Medicine; Referring Provider Internal Medicine Infectious Disease; Visit Provider Internal Medicine Infectious Disease
DX: T84.50XA Infection and inflammatory reaction due to unspecified internal joint prosthesis, initial encounter (principal); X58.XXXA Exposure to other specified factors, initial encounter
CPT/HCPCS: 36592; 80048; 85027; 85652; A4216

== ENCOUNTER 2023-10-05 14:10 | Outpatient (CLI) | payer MEDICARE, SELFPAY ==
[2023-10-05 14:59] LABS: Anion Gap 8 (5-15); BUN 40 mg/dL (7-18); BUN/Creat Ratio 23.5 RATIO (10-20); Chloride 105 mmol/L (98-107); EST Glomerular Filtration Rate 43 mL/min (>60); Est Glom Filt Rate - Afr Amer 51 mL/min (>60); Glucose 131 mg/dL (74-106); Sodium Level 141 mmol/L (136-145)
[2023-10-05 15:10] LABS: Erythrocyte Sedimentation Rate 36 mm/hr (0-20)
[2023-10-05 15:12] LABS: Hemoglobin 11.7 g/dL (13.0-16.5); Mean Corp Hgb Conc 31.6 g/dL (32-36); Mean Corpuscular Hgb 30.4 pg (27.0-32.0); Mean Corpuscular Volume 96.1 fL (80-94); Mean Platelet Vol. 11.2 fl (6.2-12.0); Platelet Count 157 K/mm3 (150-450); RBC Distribution Width CV 13.7 % (11.6-14.6); RBC Distribution Width SD 48.6 fl (35.1-43.9); Red Blood Count 3.85 M/mm3 (4.6-6.2)
== END 2023-10-05 23:59 | disposition home or self-care (01) ==
PROVIDERS: PCP Family Medicine; Referring Provider Internal Medicine Infectious Disease; Visit Provider Internal Medicine Infectious Disease
DX: T84.50XA Infection and inflammatory reaction due to unspecified internal joint prosthesis, initial encounter (principal)
CPT/HCPCS: 36592; 80048; 85027; 85652; A4216

== ENCOUNTER 2023-10-13 12:45 | Outpatient (CLI) | payer MEDICARE, SELFPAY ==
[2023-10-13 13:30] VITALS: BMI 39.1
[2023-10-13 13:35] VITALS: BP 131/71; PULSE 59; RESP 16; TEMP 36.1; O2SAT 99
[2023-10-13 14:15] VITALS: BP 137/64; PULSE 60; RESP 16; TEMP 36.1; O2SAT 98
== END 2023-10-13 23:59 | disposition home or self-care (01) ==
PROVIDERS: PCP Family Medicine; Referring Provider Internal Medicine Infectious Disease; Visit Provider Internal Medicine Infectious Disease
DX: T84.50XA Infection and inflammatory reaction due to unspecified internal joint prosthesis, initial encounter (principal); X58.XXXA Exposure to other specified factors, initial encounter

== ENCOUNTER → 2023-11-07 | Outpatient (CLI) | payer MEDICARE, SELFPAY ==
[2023-11-07 10:10] LABS: Absolute Lymphocyte Count 3.82 X10^3/uL (0.83-4.51); Absolute Neutrophil Count 5.3 X10^3/uL (2.0-7.7); Basophil# 0.08 X10^3/uL; Basophil% 0.8 % (0-1); Eosinophil# 0.31 X10^3/uL; Hematocrit 39.4 % (40-54); Hemoglobin 12.3 g/dL (13.0-16.5); Lymphocyte # 3.82 X10^3/ul (0.83-4.51); Lymphocyte % 37.5 % (19-41); Mean Corp Hgb Conc 31.2 g/dL (32-36); Mean Corpuscular Hgb 30.1 pg (27.0-32.0); Mean Corpuscular Volume 96.3 fL (80-94); Mean Platelet Vol. 10.7 fl (6.2-12.0); Monocyte# 0.62 X10^3/uL; Monocyte% 6.1 % (0-10); NRBC Flagged by Analyzer 0 % (0-5); Neutrophil # 5.33 X10^3/uL (2.7-7.7); Neutrophil % 52.4 % (47-70); Platelet Count 201 K/mm3 (150-450); RBC Distribution Width CV 14.5 % (11.6-14.6); RBC Distribution Width SD 50.4 fl (35.1-43.9); Red Blood Count 4.09 M/mm3 (4.6-6.2); White Blood Count 10.2 K/mm3 (4.4-11.0)
--- NOTE | 2023-11-07 10:10 | CT_ITS ---
STUDY: CTA CHEST REASON FOR EXAM: Male, 68 years old. Rule Out PE RADIATION DOSAGE (If Supplied By Facility): CTDIvol = ( 15.03 ) mGy, DLP = ( 594.91 ) mGycm TECHNIQUE: The examination was performed with the intravenous administration of IV 100mL Isovue-370. Post-processing of the angiographic images was performed, with multiplanar reformation and 3D reconstruction. Individualized dose optimization techniques were used for this CT. COMPARISON: None. FINDINGS: Normal enhancement of the main pulmonary artery and right and left pulmonary arteries. Normal enhancement of the bilateral peripheral pulmonary arteries. There is no demonstrated pulmonary embolism. There is atherosclerotic calcification of the aortic arch with tortuosity. There is no demonstrated aortic dissection. There are calcifications of the coronary arteries. Normal mediastinum. Normal hilar regions. Normal visualized trachea and bronchi. The lungs are well expanded. Minimal increased markings in the anterior aspect of the left upper lobe suggestive of atelectasis and/or scarring. Normal pleura. Normal chest wall structures. There are degenerative changes of thoracic spine. Small gallstones are seen along the dependent portion of the gallbladder lumen. There is a 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. Small hiatal hernia. CT/CTA Chest W/WO Contrast IMPRESSION: No evidence of pulmonary embolism. Small gallstones. 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 Electronically Signed: Josh Alonso MD at 11:01 EDT ,
[2023-11-07 10:26] LABS: CREATININE FINGERSTICK < 1.0 mg/dL (0.70-1.30); EGFR FINGERSTICK > 60.0000 mL/min (>60)
[2023-11-07 10:41] LABS: Anion Gap 6 (5-15); BUN 31 mg/dL (7-18); BUN/Creat Ratio 17.7 RATIO (10-20); Calcium,Total 9.3 mg/dL (8.5-10.1); Chloride 102 mmol/L (98-107); Creatinine, Serum 1.75 mg/dL (0.70-1.30); EST Glomerular Filtration Rate 41 mL/min (>60); Est Glom Filt Rate - Afr Amer 50 mL/min (>60); Glucose 145 mg/dL (74-106); Potassium 4.6 mmol/L (3.5-5.1); Sodium Level 138 mmol/L (136-145)
[2023-11-07 10:46] LABS: BNP,B-Type NATRIURETIC PEPTIDE 201.5 pg/mL (0-100)
== END | disposition home or self-care (01) ==
LOC: CT 09:43
PROVIDERS: PCP Family Medicine; Referring Provider Nurse Practitioner Family; Visit Provider Nurse Practitioner Family
DX: R06.09 Other forms of dyspnea (principal); I10 Essential (primary) hypertension; F17.201 Nicotine dependence, unspecified, in remission; Z95.5 Presence of coronary angioplasty implant and graft
CPT/HCPCS: 36415; 71275; 80048; 83880; 85025; Q9967; A4216

== ENCOUNTER → 2024-01-18 | Outpatient (CLI) | payer MEDICARE, SELFPAY ==
[2024-01-18 12:19] LABS: Absolute Lymphocyte Count 3.44 X10^3/uL (0.83-4.51); Absolute Neutrophil Count 3.8 X10^3/uL (2.0-7.7); Basophil# 0.05 X10^3/uL; Basophil% 0.6 % (0-1); Eosinophil# 0.28 X10^3/uL; Eosinophils% 3.5 % (0-5); Hematocrit 39.7 % (40-54); Hemoglobin 12.5 g/dL (13.0-16.5); Lymphocyte # 3.44 X10^3/ul (0.83-4.51); Lymphocyte % 42.6 % (19-41); Mean Corp Hgb Conc 31.5 g/dL (32-36); Mean Corpuscular Hgb 30.8 pg (27.0-32.0); Mean Corpuscular Volume 97.8 fL (80-94); Mean Platelet Vol. 11.5 fl (6.2-12.0); Monocyte# 0.48 X10^3/uL; Monocyte% 5.9 % (0-10); NRBC Flagged by Analyzer 0 % (0-5); Neutrophil # 3.81 X10^3/uL (2.7-7.7); Neutrophil % 47.2 % (47-70); Platelet Count 190 K/mm3 (150-450); RBC Distribution Width CV 14.6 % (11.6-14.6); RBC Distribution Width SD 52.7 fl (35.1-43.9); Red Blood Count 4.06 M/mm3 (4.6-6.2); White Blood Count 8.1 K/mm3 (4.4-11.0)
[2024-01-18 12:44] LABS: Creatinine, Urine (random) < 13.00 mg/dL (NO RANGE EST.)
[2024-01-18 12:55] LABS: ALB/GLOB Ratio 1.2 RATIO (0.9-2.4); AST(SGOT) 17 U/L (15-37); Alanine Aminotransfer ALT/SGPT 25 U/L (16-61); Albumin, Serum 4.3 g/dL (3.2-5.0); Alkaline Phosphatase 78 U/L (45-117); Anion Gap 6 (5-15); BUN 37 mg/dL (7-18); BUN/Creat Ratio 20.2 RATIO (10-20); Calcium,Total 9.2 mg/dL (8.5-10.1); Chloride 104 mmol/L (98-107); Cholesterol 110 mg/dL (200); Creatinine, Serum 1.83 mg/dL (0.70-1.30); EST Glomerular Filtration Rate 39 mL/min (>60); Est Glom Filt Rate - Afr Amer 47 mL/min (>60); Globulin 3.7 g/dL (2.2-4.2); Glucose 152 mg/dL (74-106); High Density Lipoprotein 39 mg/dL; Potassium 4.7 mmol/L (3.5-5.1); Sodium Level 139 mmol/L (136-145); Triglycerides 106 mg/dL; Very Low Density Lipoprotein 21 mg/dL (5-40)
== END | disposition home or self-care (01) ==
PROVIDERS: PCP Family Medicine; Referring Provider Family Medicine; Visit Provider Family Medicine
DX: I25.10 Atherosclerotic heart disease of native coronary artery without angina pectoris (principal); E11.9 Type 2 diabetes mellitus without complications; I10 Essential (primary) hypertension
CPT/HCPCS: 36415; 80053; 80061; 82043; 82570; 85025

== ENCOUNTER → 2024-11-28 | Outpatient (CLI) | payer MEDICARE, SELFPAY ==
[2024-11-28 11:33] LABS: Hematocrit 38.5 % (40-54); Hemoglobin 12.5 g/dL (13.0-16.5); Immature Granulocytes Count 0.010 X10^3/uL (0.0-0.0); Mean Corp Hgb Conc 32.5 g/dL (32-36); Mean Corpuscular Volume 100.8 fL (80-94); Mean Platelet Vol. 10.9 fl (6.2-12.0); NRBC Flagged by Analyzer 0 % (0-5); Platelet Count 213 K/mm3 (150-450); RBC Distribution Width CV 14.7 % (11.6-14.6); RBC Distribution Width SD 54.4 fl (35.1-43.9); Red Blood Count 3.82 M/mm3 (4.6-6.2); White Blood Count 7.5 K/mm3 (4.4-11.0)
[2024-11-28 12:24] LABS: AST(SGOT) 18 U/L (<=37); Alanine Aminotransfer ALT/SGPT 31 U/L (<=46); Albumin, Serum 4.2 g/dL (3.4-4.8); Alkaline Phosphatase 72 U/L (40-129); Anion Gap 11 (5-15); BUN 26 mg/dL (4-19); BUN/Creat Ratio 16.4 RATIO (10-20); Calcium,Total 8.7 mg/dL (7.6-11.0); Carbon Dioxide 24.8 mmol/L (21.0-32.0); Chloride 103 mmol/L (98-108); Globulin 2.9 g/dL (2.2-4.2); Glucose 117 mg/dL (70-99); Potassium 4.7 mmol/L (3.3-5.1)
== END | disposition home or self-care (01) ==
LOC: LAB 11:04
PROVIDERS: PCP Family Medicine; Referring Provider Family Medicine; Visit Provider Family Medicine
DX: E11.22 Type 2 diabetes mellitus with diabetic chronic kidney disease (principal); N18.30 Chronic kidney disease, stage 3 unspecified; I25.10 Atherosclerotic heart disease of native coronary artery without angina pectoris
CPT/HCPCS: 36415; 80053; 85025

== ENCOUNTER → 2024-12-23 | Outpatient (CLI) | payer MEDICARE, SELFPAY ==
--- OUTSIDE RECORDS SUMMARY | 2024-12-23 06:21 | XMS RPT_ITS | CCD ---
Author Organization [facility]iniSywa Care Team Providers Care Tool Programmer Name Role Phone Dasia Helton Unavailable Fatoumata Red Primary Care Provider Dr. Fatoumata Red Primary Care Provider Dr. Fatoumata Red Referring Provider Can COPE, OUTSOLE PARAFFINER-C Monse Attending Provider Mary Walton MD Primary Care Provider Dasia Helton MD Unavailable [phone] Fatoumata Red Primary Care Provider Dr. Fatoumata Red Referring Provider Can OUTSOLE PARAFFINER, OUTSOLE PARAFFINER-C Monse Attending Provider Can OUTSOLE PARAFFINER, OUTSOLE PARAFFINER-C Monse Referring Provider Can OUTSOLE PARAFFINER, OUTSOLE PARAFFINER-C Monse Other Provider Dr. Marialuisa Salas Attending Provider Dr. Marialuisa Salas Attending Provider Can COPE, OUTSOLE PARAFFINER-C Monse Referring Provider Dr. Fatoumata Red MD Primary Care Provider [phone] Dr. Fatoumata Red MD Attending Provider Dr. Fatoumata Red MD Referring Provider Fatoumata Red Primary Care Unavailable Fatoumata Red Attending Unavailable Fatoumata Red Referring Unavailable Fatoumata Red Primary Care Unavailable Fatoumata Red Attending Unavailable Neda Fatoumata Referring Unavailable Ivettel Fatoumata Primary Care Unavailable Fatoumata Red Attending Unavailable Neda Fatoumata Referring Unavailable Shannoneddanette Fatoumata Primary Care Unavailable Warren Ireland Attending Unavailable Neda Fatoumata Referring Unavailable Neda Fatoumata Primary Care Unavailable Colton Schroeder NP Attending Unavailable Shannonsheryl Fatoumata Referring Unavailable Allergies Allergy Classification Reported Allergen(s) Allergy Type Date of Onset Reaction(s) Facility (11 sources) diphenhydrAMINE; Translations: [diphenhydramine HCl] Drug Allergy 07-17-2013 [facility] Work Phone: (7 sources) buPROPion Drug Allergy 01-28-2005 [facility] Medications Current Medications Medication Drug Class(es) Dates Sig (Normalized) Sig (Original) acetaminophen 500 mg oral tablet (2 sources) Start: 10-13-2023 Acetaminophen 500 mg Tablet Active 1000 mg PO DAILY October 13, 2023 12:00am Do not take more than 3000 mg Tylenol in a 24-hour period. Start: 09-01-2023 End: 10-13-2023 Acetaminophen 500 mg Tablet Discontinued 1000 mg PO THREE TIMES A DAY September 01, 2023 12:00am October 13, 2023 1:48pm Do not take more than 3000 mg Tylenol in a 24-hour period. [id number] 200 actuat albuterol 0.09 mg/actuat metered dose inhaler (8 sources) beta2-Adrenergic Agonist Start: 12-16-2020 Albut alysia Sulfate (Ventolin Hfa) 90 mcg/actuation HFA aerosol inhaler Active 1 - 2 NMA INHALATION EVERY 4 HOURS NEEDED as needed for Wheezing or cough December 16, 2020 12:00am Start: 12-16-2020 take 1 puff(s) by in halation every four hours as needed Albuterol Sulfate (Ventolin Hfa) 90 mcg/actuation HFA aerosol inhaler Active 1 - 2 PUFF INHALATION EVERY 4 HOURS NEEDED December 15, 2020 11:00pm amLODIPine 10 mg oral tablet (8 sources) Dihydropyridine Calcium Channel Juan Start: 06-16-2020 take 1 tablet by mouth once daily Amlodipine 10 mg tablet Active 10 mg PO DAILY June 16, 2020 1:00am BP aspirin 81 mg delayed release oral tablet (16 sources) Platelet Aggregation Inhibitor, Nonsteroidal Anti-inflammatory Drug Start: 08-30-2023 take 1 tablet by mouth once daily Aspirin (Adult Aspirin Regimen) 81 mg tablet,delayed release (DR/EC) Active 81 mg PO DAILY August 30, 2023 12:00am check with primary Start: 01-31-2013 End: 06-16-2020 take 1 tablet by mouth once daily Aspirin 81 MG tablet,chewable Discontinued 81 mg PO DAILY@0800 January 31, 2013 12:00am June 16, 2020 5:48pm Start: 01-28-2005 ASPIRIN 81 MG TAB Take one (1) tablet daily . 0 01/28/2005 Active Comment on above: Take one (1) tablet daily . benoxinate hydrochloride 4 mg/ml / fluorescein sodium 2.5 mg/ml ophthalmic solution (1 source) Diagnostic Dye Start: End: fluorescein-benoxinate 0.25-0.4 % 1 Drop (FLURESS) cholecalciferol 0.05 mg oral capsule (1 source) Vitamin D Start: take 1 capsule by mouth once daily Cholecalciferol (Vitamin D3) 50 mcg (2,000 unit) capsule Active 50 ug PO daily June 19, 2024 12:00am clopidogrel 75 mg oral tablet (20 sources) P2Y12 Platelet Inhibitor Start: End: take 1 tablet by mouth once daily Clopidogrel 75 MG tablet Active 75 mg PO DAILY 30 0 May 22, 2013 1:39pm BLOOD THINNER Comment on above: Take 75 mg by mouth once daily. Take 1 tablet by once daily. empagliflozin 10 mg oral tablet (20 sources) Sodium-Glucose Cotransporter 2 Inhibitor Start: End: Empagliflozin (Jardiance) 10 mg tablet Active 10 mg PO MONovember 19, 2021 2:01pm DIABETES take 1 tablet by mouth twice jerry ly empagliflozin (JARDIANCE) 10 mg tablet Take 10 mg by mouth twice daily. 0 Active Comment on above: Take 10 mg by mouth twice daily. escitalopram 20 mg oral tablet (15 sources) Serotonin Reuptake Inhibitor Start: 02-01-20 13 take 1 tablet by mouth once daily Escitalopram Oxalate 20 MG tablet Active 20 mg PO DAILY January 31, 2013 12:00am ANTIDEPRESSANT Comment on above: Take 1 tablet by anaid th once daily. famotidine 20 mg oral tablet (1 source) Histamine-2 Receptor Antagonist Start: 09-01-19 24 take 1 tablet by mouth once daily Famotidine 20 mg Tablet Active 20 mg PO DAILY 28 0 September 01, 2023 12:00am furosemide 40 mg oral tablet (8 sources) Loop Diuretic Start: 06-17-19 21 take 1 tablet by mouth once daily Furosemide 40 mg tablet Active 40 mg PO DAILY June 16, 2020 1:00am WATER PILL gabapentin 400 mg oral capsule (15 sources) Anti-epileptic Agent Start: 06-20-19 take 2 capsules by mouth three times daily Gabapentin 400 mg capsule Active 800 mg PO THREE TIMES A DAY June 19, 2024 1:46pm NEUROPATHY Start: 08-03-2023 End: 06-19-2024 take 1 capsule by mouth three times daily Gabapentin 400 mg capsule Discontinued 400 mg PO THREE TIMES A DAY August 03, 2023 12:00am June 19, 2024 1:47pm NEUROPATHY Start: 11-19-2021 take 1200 mg by mout h three times daily Gabapentin Active 1200 MG PO THREE TIMES A DAY November 19, 2021 1:02pm Start: 06-16-2020 End: 08-03-2023 take 4 capsules by mouth three times daily Gabapentin 300 mg capsule Discontinued 1200 mg PO THREE TIMES A DAY November 19, 2021 2:02pm August 03, 2023 8:10am losartan potassium 50 mg oral tablet (8 sources) Angiotensin 2 Receptor Juan Start: 06-16-2020 take 1 tablet by mouth once daily Losartan 50 mg tablet Active 50 mg PO DAILY June 16, 2020 1:00am BP metFORMIN hydrochloride 1000 mg oral tablet (8 sources) Biguanide Start: 06-16-2020 take 1 tablet by mouth twice daily Metformin 1,000 mg tablet Active 1000 mg PO TWICE A DAY June 16, 2020 1:00am DIABETES phenylephrine hydrochloride 25 mg/ml ophthalmic solution (1 source) alpha-1 Adrenergic Agonist Start: 09-18-2021 End: 09-18-2021 PHENYLephrine 2.5 % 1 Drop (AK-DILATE, SINGH-SYNEPHRINE) proparacaine hydrochloride 5 mg/ml ophthalmic solution (1 source) Local Anesthetic Start: 09-18-2021 End: 09-18-2021 proparacaine 0.5 % 1 Drop (ALCAINE) rosuvastatin calcium 40 mg oral tablet (15 sources) HMG-CoA Reductase Inhibitor Start: 01-31-2013 take 1 tablet by mouth once daily Rosuvastatin 40 MG tablet Active 40 mg PO DAILY January 31, 2013 12:00am CHOLESTEROL Comment on above: Take 1 tablet by anaid th once daily. tropicamide 10 mg/ml ophthalmic solution (1 source) Anticholinergic Start: 09-18-2021 End: 09-18-2021 tropicamide 1 % 1 Drop (MYDRIACYL) Vitamin B Complex 1 EACH capsule (1 source) Start: 01-31-2013 Vitamin B Complex 1 EACH capsule Active 1 NMA PO DAILY January 31, 2013 12:00am SUPPLEMENT vitamin B12 (8 sources) Vitamin B12 Start: 06-16-2020 take 1 tablet by mouth once daily Cyanocobalamin (Vitamin B-12) 500 mcg tablet Active 500 ug PO DAILY June 16, 2020 1:00am SUPPLEMENT Start: 06-16-2020 take 500 ug by mouth once daily Cyanocobalamin (Vitamin B-12) Active 500 MCG PO DAILY June 16, 2020 12:00am Completed/Discontinued Medications Medication Drug Class(es) Dates Sig (Normalized) Sig (Original) acetaminophen 325 mg / HYDROcodone bitartrate 5 mg oral tablet (15 sources) Opioid Agonist Start: 05-22-2013 End: 05-28-2013 Hydrocodone-Acetami nophen 1 TABLET tablet Discontinued 1 - 2 {tbl} PO EVERY 6 HOURS NEEDED as needed for MILD-MODERATE (PAIN SCALE 1-5) 90 0 May 22, 2013 1:00am May 28, 2013 1:09pm Start: 05-22-2013 End: 05-28-2013 take 1 tablet by mouth every six hours as needed Hydrocodone-Acetaminophen Discontinued 1 - 2 TABLET PO EVERY 6 HOURS NEEDED 90 May 22, 2013 12:00am May 28, 2013 12:09pm Start: 01-31-2013 End: 2013 take 1 tablet by mouth every four hours as needed Hydrocodone-Acetaminophen Discontinued 1 - 2 TABLET PO EVERY 4 HOURS NEEDED January 31, 2013 11:02am 2013 4:35pm Start: 01-31-2013 End: 2013 take 1 tablet by mouth every four hours as needed Hydrocodone-Acetaminophen Discontinued 1 - 2 TABLET PO EVERY 4 HOURS NEEDED January 30, 2013 11:00pm 2013 3:35pm Start: 01-31-2013 End: 2013 take 1 tablet by mouth every four hours as needed Hydrocodone-Acetaminophen Discontinued 1 - 2 TABLET PO EVERY 4 HOURS NEEDED January 31, 2013 12:00am 2013 4:35pm amitriptyline hydrochloride 25 mg oral tablet (15 sources) Tricyclic Antidepressant Start: 07-17-2013 take 1 tablet by mouth once daily at bedtime amitriptyline 25 mg tablet Take 1 tablet by mouth daily at bedtime. 0 07/17/2013 Active Start: 01-31-2013 End: 06-16-2020 take 4 tablets by mouth at bedtime Amitriptyline 25 MG tablet Discontinued 100 mg PO AT BEDTIME January 31, 2013 12:00am June 16, 2020 5:48pm Start: 01-31-2013 End: 06-16-2020 take 100 mg by mouth at bedtime Amitriptyline Disconti nued 100 MG PO AT BEDTIME January 30, 2013 11:00pm June 16, 2020 4:48pm Comment on above: Take 1 tablet by anaid th daily at bedtime. apixaban 5 mg oral tablet (14 sources) Factor Xa Inhibitor Start : 06-16 End: 08-02 take 1 tablet by mouth twice daily Apixaban (Eliquis) 5 mg tablet Discontinued 5 mg PO TWICE A DAY June 16, 2020 1:00am August 03, 2023 8:06am Comment on above: Take 5 mg by mouth t wice daily. benzonatate 100 mg oral capsule (8 sources) Non-narcotic Antitussive Start : 12-16 End: 11-19 take 1 capsule by mouth three times daily as needed for cough Benzonatate (Tessalon Perles) 100 mg capsule Discontinued 100 mg PO THREE TIMES A DAY as needed for cough 20 0 December 16, 2020 5:28pm November 19, 2021 2:01pm cefepime 2000 mg injection (1 source) Cephalosporin Antibacterial Start : 08-30 End: 10-12 Cefepime 2 gram Recon Soln Discontinued 2 g IV EVERY 12 HOURS 84 42 0 August 31, 2023 12:00am October 13, 2023 1:47pm stop date 10/12/23. Dx: knee PJI Weekly bmp, cbc, and esr. Fax to [phone]. Routine picc care per protocol. COMPOUNDED PRESCRIPTION (7 sources) Start : 07-17 COMPOUNDED PRESCRIPTION Take 1 mg by mouth as directed. coumadin 1,2.5, 3, 4, or 4.5 mg once daily as directed depending on INR results 0 07/17/2013 Active Comment on above: Take 1 mg by mouth a s directed. coumadin 1,2.5, 3, 4, or 4.5 mg once daily as directed depending on INR results 0.4 ml enoxaparin sodium 100 mg/ml prefilled syringe (8 sources) Low Molecular Weight Heparin Start : 05-22 End: 05-29 Enoxaparin 40 MG/0.4 ML syringe Discontinued 40 mg SC DAILY@0600 7 0 May 22, 2013 1:00am May 29, 2013 11:05am CONT UNTIL INR THERAPEUTIC hydroCHLOROthiazide 12.5 mg oral capsule (8 sources) Thiazide Diuretic Start : 12-09 End: 06-16 take 1 capsule by mouth once daily Hydrochlorothiazide 12.5 MG capsule Discontinued 12.5 mg PO DAILY 30 0 December 09, 2014 12:00am June 16, 2020 5:48pm hydroCHLOROthiazide 25 mg / triamterene 37.5 mg oral capsule (15 sources) Potassium-sparing Diuretic, Thiazide Diuretic Start : 07-17 take 1 capsule by mouth once daily triamterene-hydrochlorot hiazide 37.5-25 mg per capsule Take 1 capsule by mouth once daily. 0 07/17/2013 Active Start: 01-31-2013 End: 12-09-2014 take 1 tablet by mouth once daily Triamterene-Hydrochlorothiazid (Maxzide- 25mg) 1 EACH tablet Discontinued 1 {tbl} PO DAILY January 31, 2013 12:00am December 09, 2014 4:58pm Comment on above: [facility]. Hydrocodone-Acetamino phen 1 EACH tablet (1 source) Start: 3 End: 4 Hydrocodone-Acetamino phen 1 EACH tablet Discontinued 1 - 2 {tbl} PO EVERY 4 HOURS NEEDED as needed for Pain January 31, 2013 12:00am 2013 4:35pm 3 ml insulin glargine 100 unt/ml pen injector (8 sources) Insulin Analog Start: 1 End: 4 Insulin Glargine (Lantus Solostar U-100 Insulin) 100 unit/mL (3 mL) insulin pen Discontinued 20 U SC EVERY EVENING June 16, 2020 1:00am November 07, 2023 8:50am DIABETES 3 ml insulin lispro 100 unt/ml pen injector (8 sources) Insulin Analog Start: 1 End: 4 Insulin Lispro (Humalog Kwikpen Insulin) 100 unit/mL insulin pen Discontinued 8 U SC THREE TIMES A DAY June 16, 2020 1:00am November 07, 2023 8:50am DIABETES H-Kymbayt-G6 Utgi-Jdxlwl-D03 3-35-2 mg tab or Capsule (7 sources) Start: 4 take 1 tablet by mouth twice daily N-Semiceh-O2 Zwqo-Sscmfi-V60 3-35-2 mg tab or Capsule Take 1 tablet by mouth twice daily. 0 07/17/2013 Active Comment on above: Take 1 tablet by anaid twice daily. lansoprazole 30 mg delayed release oral capsule (15 sources) Proton Pump Inhibitor Start: 3 End: 2 take 1 capsule by mouth once daily Lansoprazole 30 MG capsule Discontinued 30 mg PO DAILY January 31, 2013 12:00am November 19, 2021 2:00pm Comment on above: Take 1 capsule by mo [facility] once daily. Ehrnqblqt-P2-Hzv42-Al gal Oil (7 sources) Start: 3 End: 1 Sschzhkrv-O6-Zws49-Al gal Oil Discontinued 1 EACH PO DAILY January 31, 2013 11:02am June 16, 2020 5:48pm Start: 01-31-2013 End: 06-16-2020 Ciqixnyel-R7-Aiv66-Algal Oil Discontinued 1 EACH PO DAILY January 30, 2013 11:00pm June 16, 2020 4:48pm Start: 01-31-2013 End: 06-16-2020 Hhzlmifct-E6-Znu85-Algal Oil Discontinued 1 EACH PO DAILY January 31, 2013 12:00am June 16, 2020 5:48pm Uuwriqyts-Z5-Chw68-Algal Oil 1 EACH capsule (1 source) Start: 01-31-2013 End: 06-16-2020 Cxkrohkhs-W0-Yyc57-Algal Oil 1 EACH capsule Discontinued 1 NMA PO DAILY January 31, 2013 12:00am June 16, 2020 5:48pm lisinopril 5 mg oral tablet (15 sources) Angiotensin Converting Enzyme Inhibitor Start: 07-17-2013 take 1 tablet by mouth twice daily lisinopril 5 mg tablet Take 1 tablet by mouth twice daily. 0 07/17/2013 Active Start: 01-31-2013 End: 06-16-2020 take 4 tablets by mouth twice daily Lisinopril 5 MG tablet Discontinued 20 mg PO TWICE A DAY January 31, 2013 12:00am June 16, 2020 5:48pm Start: 01-31-2013 End: 06-16-2020 take 20 mg by mouth twice daily Lisinopril Discontinue d 20 MG PO TWICE A DAY January 30, 2013 11:00pm June 16, 2020 4:48pm Comment on above: Take 1 tablet by anaid th twice daily. methotrexate 2.5 mg oral tablet (13 sources) Folate Analog Metabolic Inhibitor Start: End: 4 take 4 tablets by mouth twice daily Methotrexate Sodium 2.5 mg tablet Discontinued 10 mg PO .COMPLEX November 19, 2021 12:00am August 03, 2023 8:13am 4 tablets BID on Wednesdays only; Start: 11-19-2021 take 4 tablets by mo uth twice daily Methotrexate Sodium Active 10 MG PO .COMPLEX November 18, 2021 11:00pm 4 tablets BID on Wednesdays only; Start: 06-23-2021 End: 11-19-2021 take 2.5 mg by mouth every week methotrexate Discontin ued 2.5 mg SL/PO EVERY WEEK June 23, 2021 12:00am November 19, 2021 2:03pm 24 hr metoprolol succinate 200 mg extended release oral tablet (20 sources) beta-Adrenergic Juan Start: 09-04-2014 End: 06-16-2020 take 4 tablets by mouth once daily Metoprolol Succinate 200 MG tablet extended release 24 hr Discontinued 50 mg PO DAILY September 04, 2014 12:00am June 16, 2020 5:46pm Start: 09-04-2014 End: 06-16-2020 take 50 mg by mouth once daily Metoprolol Succinate Di scontinued 50 MG PO DAILY September 03, 2014 11:00pm June 16, 2020 4:46pm Start: 07-17-2013 take 1 tablet by anaid th once daily Metoprolol Succinate 50 mg tablet extended release 24 hr Active 50 mg PO DAILY June 16, 2020 1:00am BP Comment on above: Take 1 tablet by anaid th once daily. naproxen 500 mg oral tablet (8 sources) Nonsteroidal Anti-inflammatory Drug Start: End: take 1 tablet by mouth once daily as needed for pain Naproxen 500 mg tablet Discontinued 500 mg PO DAILY as needed for Muscle Pain December 31, 2020 12:00am September 01, 2023 1:35pm ondansetron 4 mg oral tablet (8 sources) Serotonin-3 Receptor Antagonist Start: End: take 1 tablet by mouth every eight hours as needed for nausea and vomiting Ondansetron Hcl (Zofran) 4 mg tablet Discontinued 4 mg PO Q8H as needed for nausea and vomiting 14 0 December 16, 2020 12:00am August 03, 2023 8:13am oxyCODONE hydrochloride 5 mg oral tablet (1 source) Opioid Agonist Start: End: take 5-10 mg by mouth every four hours as needed for pain Oxycodone 5 mg Tablet Discontinued 5 - 10 mg PO EVERY 4 HOURS NEEDED as needed for Pain Score 4-10 56 7 0 September 01, 2023 November 07, 2023 8:51am Status post revision of total replacement of left knee Presence of left artificial knee joint predniSONE 5 mg oral tablet (8 sources) Start: End: take 1 tablet by mouth once daily Prednisone 5 mg Tablet Discontinued 5 mg PO DAILY June 23, 2021 12:00am November 19, 2021 2:05pm rivaroxaban 10 mg oral tablet (1 source) Factor Xa Inhibitor Start: End: take 1 tablet by mouth once daily Rivaroxaban (Xarelto) 10 mg Tablet Discontinued 10 mg PO DAILY@0600 13 0 September 01, 2023 12:00am November 07, 2023 9:12am Take for 2 weeks postoperatively for DVT prophylaxis due to previous history of pulmonary embolism tamsulosin hydrochloride 0.4 mg oral capsule (8 sources) alpha-Adrenergic Juan Start: End: take 1 capsule by mouth once daily Tamsulosin 0.4 mg capsule Discontinued 0.4 mg PO DAILY June 16, 2020 1:00am August 03, 2023 8:14am Vitamin B Complex (14 sources) Start: take 1 tablet by mouth once daily vitamin b complex tab Take 1 tablet by mouth once daily. 0 07/17/2013 Active Start: 01-31-2013 Vitamin B Comp dean Active 1 EACH PO DAILY January 31, 2013 11:02am Start: 01-31-2013 Vitamin B Comp dean Active 1 EACH PO DAILY January 30, 2013 11:00pm Start: 01-31-2013 Vitamin B Comp dean Active 1 EACH PO DAILY January 31, 2013 12:00am Comment on above: Take 1 tablet by anaid th once daily. warfarin sodium 5 mg oral tablet (20 sources) Vitamin K Antagonist Start: 09-04-2014 End: 06-16-2020 take 3 mg by mouth once daily Warfarin 5 MG tablet Discontinued 3 mg PO DAILY@1699September 04, 2014 9:23am June 16, 2020 5:48pm Start: 09-04-2014 End: 06-16-2020 take 3 mg by mouth once daily Warfarin Discontinued 3 MG PO DAILY@1699September 04, 2014 8:23am June 16, 2020 4:48pm Start: 05-28-2013 End: 09-04-2014 take 1 tablet by mouth once daily Warfarin (Jantoven) 5 MG tablet Discontinued 5 mg PO DAILY@1700 30 0 May 28, 2013 1:00am September 04, 2014 9:24am Start: 01-31-2013 End: 05-29-2013 take 4.5 mg by mouth once daily Warfarin (Jantoven) 4 MG tablet Discontinued 4.5 mg PO DAILY January 31, 2013 12:00am May 29, 2013 11:06am End: 06-15-2021 take 1 tablet by mouth once daily warfarin (COUMADIN) 3 mg tablet Take 3 mg by mouth daily as directed. 0 06/15/2021 Discontinued Comment on above: Take 3 mg by mouth d aily as directed. Problems Active Problems Problem Classification Problem Date Documented Da te Episodic/Chronic Cataract (1 source) Bilateral pseudophakia; Translations: [Presence of intraocular lens] Chronic Chronic obstructive pulmonary disease and bronchiectasis (8 sources) Bronchitis; Translations: [Bronchitis, not specified as acute or chronic] 12-16-2020 Episodic Complication of device; implant or graft (1 source) Prosthetic joint infection; Translations: [Infection and inflammatory reaction due to unspecified internal joint prosthesis, initial encounter] 08-31-2023 Episodic Conditions associated with dizziness or vertigo (5 sources) Dizziness; Translations: [Dizziness and giddiness] 11-19-2021 Episodic Coronary atherosclerosis and other heart disease (10 sources) Coronary atherosclerosis; Translations: [Atherosclerotic heart disease of [place] coronary artery without angina pectoris] Onset: 02-12-2024 06-18-2020 Chronic Diabetes mellitus with complications (1 source) Type 2 diabetes mellitus with diabetic chronic kidney disease; Translations: [Type 2 diabetes mellitus with diabetic chronic kidney disease] Onset: 12-04-2024 Chronic Diabetes mellitus without complication (9 sources) Type 2 diabetes mellitus; Translations: [Type 2 diabetes mellitus without complications] Chronic Disorders of lipid metabolism (12 sources) Hyperlipidemia; Translations: [Hyperlipidemia, unspecified] Chronic Essential hypertension (12 sources) Benign essential hypertension; Translations: [Essential (primary) hypertension] Chronic Malaise and fatigue (3 sources) Fatigue; Translations: [Other fatigue] 02-20-2023 Episodic Multiple myeloma (2 sources) Multiple myeloma; Translations: [Multiple myeloma not having achieved remission] Chronic Neoplasms of unspecified nature or uncertain behavior (8 sources) Smoldering myeloma; 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] Onset: 06-16-2021 07-14-2021 Chronic Nonspecific chest pain (1 source) Chest pain, unspecified; Translations: [Chest pain, unspecified] Onset: 12-10-2024 Episodic Other connective tissue disease (1 source) History of revision of left total knee arthroplasty; Translations: [Presence of left artificial knee joint] 08-31-2023 Chronic Other lower respiratory disease (3 sources) Dyspnea on exertion; Translations: [Other forms of dyspnea] 02-20-2023 Episodic Other screening for suspected conditions (not mental disorders or infectious disease) (3 sources) Cardiovascular stress test abnormal; Translations: [Abnormal result of other cardiovascular function study] 02-20-2023 Episodic Phlebitis; thrombophlebitis and thromboembolism (8 sources) Deep venous thrombosis; Translations: [Acute embolism and thrombosis of unspecified deep veins of unspecified lower extremity] 06-16-2020 Episodic Pulmonary heart disease (8 sources) H/O: pulmonary embolus; Translations: [Personal history of pulmonary embolism] 06-16-2020 Episodic Substance-related disorders (8 sources) Tobacco dependence in remission; Translations: [Nicotine dependence, unspecified, in remission] 06-16-2020 Chronic Past or Other Problems Problem Classification Problem Date Documented Da te Episodic/Chronic Coronary atherosclerosis and other heart disease (11 sources) Stented coronary artery; Translations: [Presence of coronary angioplasty implant and graft] Onset: 02-08-2011 06-16-2020 Episodic Comment on above: PTCA/NELY and thrombe ctomy of occluded mid LCX 02/05/10; PTCA/NELY to LAD and RCA, and PTCA only to 1st diagonal 08/17/10; PTCA/stent to RCA 02/09/11 Gastritis and duodenitis (7 sources) Gastritis; Translations: [Gastritis, unspecified, without bleeding] Onset: 08-15-2013 08-15-2013 Episodic Other and unspecified benign neoplasm (7 sources) Benign neoplasm of colon; Translations: [Benign neoplasm of colon, unspecified] Onset: 08-15-2013 08-15-2013 Episodic Unclassified (8 sources) Medical management 06-16-2020 Results Test Name Value Interpretation Reference Range Facility Absolute lymphocyte countOrd ered By: Fatoumata Red on 11-28-2024 Lymphocytes Auto (Unsp spec) [#/Vol] 3.31 10*3/uL 0.83-4.51 [facility] Absolute neutrophil countOrd ered By: Fatoumata Red on 11-28-2024 Neutrophils (Bld) [#/Vol] 3.5 10*3/uL 2.0-7.7 [facility] Anion gap in Serum or Plasma Ordered By: Fatoumata Red on 11-28-2024 Anion gap [Moles/Vol] 11 mmol/L 5- [facility] Automated lymphocyte count a s percentage of total leukocytesOrdered By: Fatoumata Red on 11-28-2024 Lymphocytes/100 WBC Auto (Unsp spec) 44.1 % High 19- [facility] BUN/creatinine ratioOrdered By: Fatoumata Red on 11-28-2024 Urea nitrogen/Creatinine [Mass ratio] 16.4 mg/mg - [facility] Basophil percentageOrdered B y: Fatoumata Red on 11-28-2024 Basophils/100 WBC (Bld) 0.5 % 0-1 [facility] Bilirubin, totalOrdered By: Fatoumata Red on 11-28-2024 Bilirubin [Mass/Vol] 0.48 mg/dL 0.00-1.30 [facility] CBC W/Diff, Automatedon 11-09 Absolute Lymph 3.31 X10 3/uL Normal 0.83-4.51 [facility] Comment on above: Performed By: #### L 100.0100, L500.4050 #### [facility] [address] [place], [address] Absolute Neut 3.5 X10 3/uL Normal 2.0-7.7 [facility] Comment on above: Performed By: #### L 100.0100, L500.4050 #### [facility] [address] [place], [address] Basophils/100 WBC (Bld) 0.5 % Normal 0-1 [facility] Comment on above: Performed By: #### L 100.0100, L500.4050 #### [facility] [address] [place], [address] Eosinophils/100 WBC (Bld) 4.1 % Normal 0-5 [facility] Comment on above: Performed By: #### L 100.0100, L500.4050 #### [facility] [address] [place], [address] Erythrocyte distribution width (RBC) [Ratio] 14.7 % High 11.6-14.6 [facility] Comment on above: Performed By: #### L 100.0100, L500.4050 #### [facility] [address] [place], [address] Hematocrit (Bld) [Volume fraction] 38.5 % Low 40-54 [facility] Comment on above: Performed By: #### L 100.0100, L500.4050 #### [facility] [address] [place], [address] Hemoglobin (Bld) [Mass/Vol] 12.5 g/dL Low 13.0-16.5 [facility] Comment on above: Performed By: #### L 100.0100, L500.4050 #### [facility] [address] [place], [address] IG% 0.100 Normal 0.0-0.9 [facility] Comment on above: Result Comment: IG% - Immature Granulocytes (promyelocytes, myelocytes and metamyelocytes) > 1% indicates that a LEFT SHIFT is Present. Performed By: #### L 100.0100, L500.4050 #### [facility] [address] [place], [address] Lymphocytes/100 WBC (Bld) 44.1 % High 19-41 [facility] Comment on above: Performed By: #### L 100.0100, L500.4050 #### [facility] [address] [place], [address] MCH (RBC) [Entitic mass] 32.7 pg High 27.0-32.0 [facility] Comment on above: Performed By: #### L 100.0100, L500.4050 #### [facility] [address] [place], [address] MCHC (RBC) [Mass/Vol] 32.5 g/dL Normal 32-36 [facility] Comment on above: Performed By: #### L 100.0100, L500.4050 #### [facility] [address] [place], [address] MCV (RBC) [Entitic vol] 100.8 fL High 80-94 [facility] Comment on above: Performed By: #### L 100.0100, L500.4050 #### [facility] [address] [place], [address] Monocytes/100 WBC (Bld) 4.9 % Normal 0-10 [facility] Comment on above: Performed By: #### L 100.0100, L500.4050 #### [facility] [address] [place], [address] Neutrophils/100 WBC (Bld) 46.3 % Low 47-70 [facility] Comment on above: Performed By: #### L 100.0100, L500.4050 #### [facility] [address] [place], [address] Nucleated RBC (Bld) [#/Vol] 0 10*3/uL Normal 0-5 [facility] Comment on above: Performed By: #### L 100.0100, L500.4050 #### [facility] [address] [place], [address] Platelet mean volume (Bld) [Entitic vol] 10.9 fL Normal 6.2-12.0 [facility] Comment on above: Performed By: #### L 100.0100, L500.4050 #### [facility] [address] [place], [address] Platelets (Bld) [#/Vol] 213 10*3/uL Normal 150-450 [facility] Comment on above: Performed By: #### L 100.0100, L500.4050 #### [facility] [address] [place], [address] RBC (Bld) [#/Vol] 3.82 10*6/uL Low 4.6-6.2 [facility] Comment on above: Performed By: #### L 100.0100, L500.4050 #### [facility] [address] [place], [address] RDW SD 54.4 fl High 35.1-43.9 [facility] Comment on above: Performed By: #### L 100.0100, L500.4050 #### [facility] [address] [place], [address] WBC (Bld) [#/Vol] 7.5 10*3/uL Normal 4.4-11.0 [facility] Comment on above: Performed By: #### L 100.0100, L500.4050 #### [facility] [address] [place], [address] Carbon dioxide, total [Moles /volume] in Central venous bloodOrdered By: Fatoumata Red on 11-28-2024 CO2 [Moles/Vol] 24.8 mmol/L 21.0-32.0 [facility] Chloride assayOrdered By: Dario Red on 11-28-2024 Chloride [Moles/Vol] 103 mmol/L 98-108 [facility] Comprehensive Metabolic Prof ilon 11-28-2024 Albumin [Mass/Vol] 4.2 g/dL Normal 3.4-4.8 [facility] Comment on above: Performed By: #### L 100.0100, L500.4050 #### [facility] [address] [place], [address] Albumin/Globulin [Mass ratio] 1.4 {ratio} Normal 0.9-2.4 [facility] Comment on above: Performed By: #### L 100.0100, L500.4050 #### [facility] [address] [place], [address] ALK PHOS 72 U/L Normal 40-129 [facility] Comment on above: Performed By: #### L 100.0100, L500.4050 #### [facility] [address] [place], [address] ALT [Catalytic activity/Vol] 31 U/L Normal <=46 [facility] Comment on above: Performed By: #### L 100.0100, L500.4050 #### [facility] [address] [place], [address] AST [Catalytic activity/Vol] 18 U/L Normal <=37 [facility] Comment on above: Performed By: #### L 100.0100, L500.4050 #### [facility] [address] [place], [address] Bilirubin [Mass/Vol] 0.48 mg/dL Normal 0.00-1.30 [facility] Comment on above: Performed By: #### L 100.0100, L500.4050 #### [facility] [address] [place], [address] BUN/CRE 16.4 RATIO Normal 10-20 [facility] Comment on above: Performed By: #### L 100.0100, L500.4050 #### [facility] [address] [place], [address] Calcium [Mass/Vol] 8.7 mg/dL Normal 7.6-11.0 [facility] Comment on above: Performed By: #### L 100.0100, L500.4050 #### [facility] [address] [place], [address] Chloride [Moles/Vol] 103 mmol/L Normal 98-108 [facility] Comment on above: Performed By: #### L 100.0100, L500.4050 #### [facility] [address] [place], [address] CO2 [Moles/Vol] 24.8 mmol/L Normal 21.0-32.0 [facility] Comment on above: Performed By: #### L 100.0100, L500.4050 #### [facility] [address] [place], [address] Creatinine [Mass/Vol] 1.60 mg/dL High 0.70-1.20 [facility] Comment on above: Performed By: #### L 100.0100, L500.4050 #### [facility] [address] [place], [address] GAP 11 Normal 5-15 [facility] Comment on above: Performed By: #### L 100.0100, L500.4050 #### [facility] [address] [place], [address] GFR/1.73 sq M.predicted among non-blacks MDRD (S/P/Bld) [Vol rate/Area] 46 mL/min/{1.73_m2} Low >60 [facility] Comment on above: Result Comment: mL/m in/1.73m2 CKD-EPI Creatinine Equation (2020) Performed By: #### L 100.0100, L500.4050 #### [facility] [address] [place], [address] Globulin (S) [Mass/Vol] 2.9 g/dL Normal 2.2-4.2 [facility] Comment on above: Performed By: #### L 100.0100, L500.4050 #### [facility] [address] [place], [address] Glucose [Mass/Vol] 117 mg/dL High 70-99 [facility] Comment on above: Performed By: #### L 100.0100, L500.4050 #### [facility] [address] [place], [address] Potassium [Moles/Vol] 4.7 mmol/L Normal 3.3-5.1 [facility] Comment on above: Performed By: #### L 100.0100, L500.4050 #### [facility] [address] [place], [address] Sodium [Moles/Vol] 139 mmol/L Normal 133-145 [facility] Comment on above: Performed By: #### L 100.0100, L500.4050 #### [facility] [address] [place], [address] T PROT 7.0 g/dL Normal 5.9-8.4 [facility] Comment on above: Performed By: #### L 100.0100, L500.4050 #### [facility] [address] [place], [address] Urea nitrogen [Mass/Vol] 26 mg/dL High 4-19 [facility] Comment on above: Performed By: #### L 100.0100, L500.4050 #### [facility] [address] [place], [address] Eosinophil percentageOrdered By: Fatoumata Red on 11-28-2024 Eosinophils/100 WBC (Bld) 4.1 % 0-5 [facility] Erythrocyte distribution wid th ratioOrdered By: Fatoumata Red on 11-28-2024 Erythrocyte distribution width (RBC) [Ratio] 14.7 % High 11.6-14.6 [facility] Erythrocyte distribution wid th standard deviationOrdered By: Fatoumata Red on 11-28-2024 Erythrocyte distribution width (RBC) [Ratio] 54.4 fl High 35.1-43.9 [facility] Glomerular filtration rate ( GFR) estimation/1.73 sq m using serum, plasma, or whole bOrdered By: Fatoumata Red on 11-28-2024 GFR/1.73 sq M.predicted among non-blacks MDRD (S/P/Bld) [Vol rate/Area] 46 mL/min/{1.73_m2} Low >60 [facility] Comment on above: mL/min/1.73m2 CKD-EP I Creatinine Equation (2020) Hematocrit Auto (Bld) [Volum e fraction]Ordered By: Fatoumata Red on 11-28-2024 Hematocrit (Bld) [Volume fraction] 38.5 % Low 40-54 [facility] Hemoglobin measurementOrdere d By: Fatoumata Red on 11-28-2024 Hemoglobin (Bld) [Mass/Vol] 12.5 g/dL Low 13.0-16.5 [facility] Immature granulocytes/100 WB C Auto (Bld)Ordered By: Fatoumata Red on 11-28-2024 Immature granulocytes/100 WBC (Bld) 0.100 % 0.0-0.9 [facility] Comment on above: IG% - Immature Granu locytes (promyelocytes, myelocytes and metamyelocytes) > 1% indicates that a LEFT SHIFT is Present. Laboratory - Chemistry and C hemistry - challengeOrdered By: Fatoumata Red on 11-28-2024 AST [Catalytic activity/Vol] 18 U/L <38 [facility] MCV (mean corpuscular volume ) determinationOrdered By: Fatoumata Red on 11-28-2024 MCV (RBC) [Entitic vol] 100.8 fL High 80-94 [facility] Mean corpuscular hemoglobin (MCH) determinationOrdered By: Fatoumata Red on 11-28-2024 MCH (RBC) [Entitic mass] 32.7 pg High 27.0-32.0 [facility] Mean corpuscular hemoglobin concentration (MCHC) determinationOrdered By: Fatoumata Red on 11-28-2024 MCHC (RBC) [Mass/Vol] 32.5 g/dL 32-36 [facility] Mean platelet volume determi nationOrdered By: Fatoumata Red on 11-28-2024 Platelet mean volume (Bld) [Entitic vol] 10.9 fL 6.2-12.0 [facility] Monocyte percentageOrdered B y: Fatoumata Red on 11-28-2024 Monocytes/100 WBC (Bld) 4.9 % 0-10 [facility] Neutrophil percentageOrdered By: Fatoumata Red on 11-28-2024 Neutrophils/100 WBC (Bld) 46.3 % Low 47-70 [facility] Nucleated red blood cell per centageOrdered By: Fatoumata Red on 11-28-2024 Nucleated RBC/100 WBC (Bld) [Ratio] 0 % 0-5 [facility] Platelet countOrdered By: Dario Red on 11-28-2024 Platelets (Bld) [#/Vol] 213 10*3/uL 150-450 [facility] Potassium measurement (mass/ volume)Ordered By: Fatoumata Red on 11-28-2024 Potassium (Unsp spec) [Mass/Vol] 4.7 mmol/L 3.3-5.1 [facility] RBC Auto (Bld) [#/Vol]Ordere d By: Fatoumata Red on 11-28-2024 RBC (Bld) [#/Vol] 3.82 10*6/uL Low 4.6-6.2 [facility] Serum creatinine measurement (mass/volume)Ordered By: Fatoumata Red on 11-28-2024 Creatinine [Mass/Vol] 1.60 mg/dL High 0.70-1.20 [facility] Serum globulin measurementOr dered By: Fatoumata Red on 11-28-2024 Globulin (S) [Mass/Vol] 2.9 g/dL 2.2-4.2 [facility] Serum glucose measurement (m ass/volume)Ordered By: Fatoumata Red on 11-28-2024 Glucose [Mass/Vol] 117 mg/dL High 70-99 [facility] Serum or plasma alanine sanches otransferase (ALT) measurementOrdered By: Fatoumata Red on 11-28-2024 ALT [Catalytic activity/Vol] 31 U/L <47 [facility] Serum or plasma albumin bj urement (mass/volume)Ordered By: Fatoumata Red on 11-28-2024 Albumin [Mass/Vol] 4.2 g/dL 3.4-4.8 [facility] Serum or plasma albumin/glob ulin mass ratioOrdered By: Fatoumata Red on 11-28-2024 Albumin/Globulin [Mass ratio] 1.4 {ratio} 0.9-2.4 [facility] Serum or plasma alkaline cynthia sphatase measurementOrdered By: Fatoumata Red on 11-28-2024 ALP [Catalytic activity/Vol] 72 U/L 40-129 [facility] Serum or plasma calcium bj urement (mass/volume)Ordered By: Fatoumata Red on 11-28-2024 Calcium [Mass/Vol] 8.7 mg/dL 7.6-11.0 [facility] Serum or plasma urea nitroge n measurement (mass/volume)Ordered By: Fatoumata Red on 11-28-2024 Urea nitrogen [Mass/Vol] 26 mg/dL High 4-19 [facility] Sodium levelOrdered By: Tami Red on 11-28-2024 Sodium [Moles/Vol] 139 mmol/L 133-145 [facility] Total proteinOrdered By: Tal Red on 11-28-2024 Protein [Mass/Vol] 7.0 g/dL 5.9-8.4 [facility] White blood cell (WBC) count Ordered By: Fatoumata Red on 11-28-2024 WBC (Bld) [#/Vol] 7.5 10*3/uL 4.4-11.0 [facility] Cardiology Visit Reporton Cardiology Visit Report [facility] [place] [address] OFFICE VISIT Date of Service: 06/19/24 MR#: [id number] Acct: [id number] Name: RADHASHELBI DAVIS Rep #: [id number] : 1955 Provider: Dr. Warren perez MD Age/Sex: 69/M Location: [facility] Status: Signed HPI HPI History of Present Illness Details: Patient comes in today is a 69-year-old white male for monitoring of his cardiovascular status. Patient carries a history of known coronary disease status post remote stenting of the lateral circumflex mid right coronary artery and proximal LAD approximately 15 years ago. This was prompted by a sudden onset of chest pain in the mid retrosternal area. He was seated fixing to smoke a cigarette when it occurred. He has not smoked since that day and he has not had any recurrence of that exact pain. He did undergo a repeat heart catheterization March 2023 which showed all the stents to be widely patent and he was continued on medical therapy. This was after he had mild apical ischemia on the stress test. It turned out to be a false positive test. Patient also has a history of hypertension his blood pressure normally runs 118???120/70 in his home environment it was 145/73 in the office today. He also has a history of hyperlipidemia last lipids January 2024 were excellent with a total cholesterol 110, HDL 39, LDL 50, and triglycerides 106. He is on intensive statin therapy with rosuvastatin 40 mg daily. The patient also has a history of DVTs and PEs he is on chronic oral anticoagulation but he does not know the name of the medication he is taking. He is also on aspirin and clopidogrel. The patient denies any chest discomfort denies any PND orthopnea denies any TIA or CVA type symptoms. He does have persistent bilateral lower extremity mild edema. Intake Vital Signs 01/01/24 08:52 06/19/24 13:44 Height 5 ft 7 in 5 ft 7 in Weight: 263 lb BMI 41.1 BP 145/73 H Blood Pressure Location Lt brachial Position Sitting Respiration 18 Pulse 59 L Pulse Source Monitor Pulse Oximetry (%) 95 Oxygen Delivery Method room air Intake Visit Reasons: 7 M FU Plastics Nurse Required: No Accompanied by: Self Is patient in pain?: No Allergies diphenhydramine HCl (From Benadryl) Allergy (Verified 06/19/24 13:45) Hives Medications ???Medication ???Instructions ???Recorded ???Confirmed ???Type escitalopram oxalate 20 mg tablet 20 mg PO DAILY ANTIDEPRESSANT 06/19/24 History rosuvastatin 40 mg tablet 40 mg PO DAILY CHOLESTEROL 3 06/19/24 History vitamin B complex 1 ea PO DAILY SUPPLEMENT 01/31/13 06/19/24 History clopidogrel 75 mg tablet 75 mg PO DAILY BLOOD THINNER ##30 05/22/13 06/19/24 Rx amlodipine 10 mg tablet 10 mg PO DAILY BP 06/16/20 5 History cyanocobalamin (vitamin B-12) 500 500 mcg PO DAILY SUPPLEMENT 06/1606/19/24 History mcg tablet furosemide 40 mg tablet 40 mg PO DAILY WATER PILL 06/16/20 06/19/24 History losartan 50 mg tablet 50 mg PO DAILY BP 06/16/20 5 History metformin 1,000 mg tablet 1,000 mg PO BID DIABETES 06/16/20 06/19/24 History metoprolol succinate 50 mg 50 mg PO DAILY BP 06/16/20 5 History tablet,extended release 24 hr albuterol sulfate 90 mcg/actuation 1 - 2 puff inhalation Q4H PRN MS N 12/16/20 06/19/24 Rx aerosol inhaler (Ventolin HFA) Wheezing or cough #1 inh empagliflozin 10 mg tablet 10 mg PO MOWEFR DIABETES 11/19/21 06/19/24 History (Jardiance) aspirin 81 mg tablet,delayed 81 mg PO DAILY check with primary 08/30/23 06/19/24 History release (Adult Aspirin Regimen) famotidine 20 mg tablet 20 mg PO DAILY #28 tabs 09/01/23 0 06/19/24 Rx acetaminophen 500 mg tablet 1,000 mg PO DAILY 10/13/23 5 History cholecalciferol (vitamin D3) 50 50 mcg PO QDAY 06/19/24 06/19/24 H istory mcg (2,000 unit) capsule gabapentin 400 mg capsule 800 mg PO TID NEUROPATHY 06/19/24 06/19/24 History Have you fallen in the past year?: Yes PFSH Medical History Wears glasses Anxiety Depression Insulin dependent diabetes mellitus Arthritis High cholesterol DVT (deep venous thrombosis) Back pain DDD (degenerative disc disease), lumbar TIA (transient ischemic attack) Dietary restriction Former smoker BiPAP (biphasic positive airway pressure) dependence Shortness of breath on exertion History of pain when walking History of edema History of stress test Cardiology follow-up encounter History of CHF (congestive heart failure) History of heart attack Pain Diabetic neuropathy Type 2 diabetes mellitus BPH (benign prostatic hyperplasia) History of pulmonary embolism Presence of stent in coronary artery ( 11 (more content not included)... Normal [facility] CBC W/Diff, Automatedon 10- 0-2023 Absolute Lymph 3.44 X10 3/uL Normal 0.83-4.51 [facility] Comment on above: Performed By: #### L 100.0100, L500.4100, L502.0250, L500.4050 #### [facility] [address] [place], [address] Absolute Neut 3.8 X10 3/uL Normal 2.0-7.7 [facility] Comment on above: Performed By: #### L 100.0100, L500.4100, L502.0250, L500.4050 #### [facility] [address] [place], [address] Basophils/100 WBC (Bld) 0.6 % Normal 0-1 [facility] Comment on above: Performed By: #### L 100.0100, L500.4100, L502.0250, L500.4050 #### [facility] [address] [place], [address] Eosinophils/100 WBC (Bld) 3.5 % Normal 0-5 [facility] Comment on above: Performed By: #### L 100.0100, L500.4100, L502.0250, L500.4050 #### [facility] [address] [place], [address] Erythrocyte distribution width (RBC) [Ratio] 14.6 % Normal 11.6-14.6 [facility] Comment on above: Performed By: #### L 100.0100, L500.4100, L502.0250, L500.4050 #### [facility] [address] [place], [address] Hematocrit (Bld) [Volume fraction] 39.7 % Low 40-54 [facility] Comment on above: Performed By: #### L 100.0100, L500.4100, L502.0250, L500.4050 #### [facility] [address] [place], [address] Hemoglobin (Bld) [Mass/Vol] 12.5 g/dL Low 13.0-16.5 [facility] Comment on above: Performed By: #### L 100.0100, L500.4100, L502.0250, L500.4050 #### [facility] [address] [place], [address] IG% 0.200 Normal 0.0-0.9 [facility] Comment on above: Result Comment: IG% - Immature Granulocytes (promyelocytes, myelocytes and metamyelocytes) > 1% indicates that a LEFT SHIFT is Present. Performed By: #### L 100.0100, L500.4100, L502.0250, L500.4050 #### [facility] [address] [place], [address] Lymphocytes/100 WBC (Bld) 42.6 % High 19-41 [facility] Comment on above: Performed By: #### L 100.0100, L500.4100, L502.0250, L500.4050 #### [facility] [address] [place], [address] MCH (RBC) [Entitic mass] 30.8 pg Normal 27.0-32.0 [facility] Comment on above: Performed By: #### L 100.0100, L500.4100, L502.0250, L500.4050 #### [facility] [address] [place], [address] MCHC (RBC) [Mass/Vol] 31.5 g/dL Low 32-36 [facility] Comment on above: Performed By: #### L 100.0100, L500.4100, L502.0250, L500.4050 #### [facility] [address] [place], [address] MCV (RBC) [Entitic vol] 97.8 fL High 80-94 [facility] Comment on above: Performed By: #### L 100.0100, L500.4100, L502.0250, L500.4050 #### [facility] [address] [place], [address] Monocytes/100 WBC (Bld) 5.9 % Normal 0-10 [facility] Comment on above: Performed By: #### L 100.0100, L500.4100, L502.0250, L500.4050 #### [facility] [address] [place], [address] Neutrophils/100 WBC (Bld) 47.2 % Normal 47-70 [facility] Comment on above: Performed By: #### L 100.0100, L500.4100, L502.0250, L500.4050 #### [facility] [address] [place], [address] Nucleated RBC (Bld) [#/Vol] 0 10*3/uL Normal 0-5 [facility] Comment on above: Performed By: #### L 100.0100, L500.4100, L502.0250, L500.4050 #### [facility] [address] [place], [address] Platelet mean volume (Bld) [Entitic vol] 11.5 fL Normal 6.2-12.0 [facility] Comment on above: Performed By: #### L 100.0100, L500.4100, L502.0250, L500.4050 #### [facility] [address] [place], [address] Platelets (Bld) [#/Vol] 190 10*3/uL Normal 150-450 [facility] Comment on above: Performed By: #### L 100.0100, L500.4100, L502.0250, L500.4050 #### [facility] [address] [place], [address] RBC (Bld) [#/Vol] 4.06 10*6/uL Low 4.6-6.2 [facility] Comment on above: Performed By: #### L 100.0100, L500.4100, L502.0250, L500.4050 #### [facility] [address] [place], [address] RDW SD 52.7 fl High 35.1-43.9 [facility] Comment on above: Performed By: #### L 100.0100, L500.4100, L502.0250, L500.4050 #### [facility] [address] [place], [address] WBC (Bld) [#/Vol] 8.1 10*3/uL Normal 4.4-11.0 [facility] Comment on above: Performed By: #### L 100.0100, L500.4100, L502.0250, L500.4050 #### [facility] [address] [place], [address] Comprehensive Metabolic Prof ilon 01-18-2024 Albumin [Mass/Vol] 4.3 g/dL Normal 3.2-5.0 [facility] [place] Comment on above: Performed By: #### L 100.0100, L500.4100, L502.0250, L500.4050 #### [facility] [address] [place], [address] Albumin/Globulin [Mass ratio] 1.2 {ratio} Normal 0.9-2.4 [facility] Comment on above: Performed By: #### L 100.0100, L500.4100, L502.0250, L500.4050 #### [facility] [address] [place], [address] ALK P 78 U/L Normal 45-117 [facility] Comment on above: Performed By: #### L 100.0100, L500.4100, L502.0250, L500.4050 #### [facility] [address] [place], [address] ALT [Catalytic activity/Vol] 25 U/L Normal 16-61 [facility] Comment on above: Performed By: #### L 100.0100, L500.4100, L502.0250, L500.4050 #### [facility] [address] [place], [address] AST [Catalytic activity/Vol] 17 U/L Normal 15-37 [facility] Comment on above: Performed By: #### L 100.0100, L500.4100, L502.0250, L500.4050 #### [facility] [address] [place], [address] Bilirubin [Mass/Vol] 0.50 mg/dL Normal 0.20-1.00 [facility] Comment on above: Result Comment: For patients on eltrombopag therapy, use of Dimension Tarzan TBIL is not recommended. Performed By: #### L 100.0100, L500.4100, L502.0250, L500.4050 #### [facility] [address] [place], [address] BUN/CRE 20.2 RATIO High 10-20 [facility] Comment on above: Performed By: #### L 100.0100, L500.4100, L502.0250, L500.4050 #### [facility] [address] [place], [address] CA,Total 9.2 mg/dL Normal 8.5-10.1 [facility] Comment on above: Performed By: #### L 100.0100, L500.4100, L502.0250, L500.4050 #### [facility] [address] [place], [address] Chloride [Moles/Vol] 104 mmol/L Normal 98-107 [facility] Comment on above: Performed By: #### L 100.0100, L500.4100, L502.0250, L500.4050 #### [facility] [address] [place], [address] CO2 [Moles/Vol] 30.0 mmol/L Normal 21.0-32.0 [facility] Comment on above: Performed By: #### L 100.0100, L500.4100, L502.0250, L500.4050 #### [facility] [address] [place], [address] Creatinine [Mass/Vol] 1.83 mg/dL High 0.70-1.30 [facility] Comment on above: Result Comment: The validity of the calculated GFR GFRAA in patients over 70 years has not been determined. Clinical correlation is essential. Performed By: #### L 100.0100, L500.4100, L502.0250, L500.4050 #### [facility] [address] [place], [address] EST GFR - AA 47 mL/min Low >60 [facility] Comment on above: Result Comment: Afri can Nauruan GFR Calc Performed By: #### L 100.0100, L500.4100, L502.0250, L500.4050 #### [facility] [address] [place], [address] GAP 6 Normal 5-15 [facility] Comment on above: Performed By: #### L 100.0100, L500.4100, L502.0250, L500.4050 #### [facility] [address] [place], [address] GFR/1.73 sq M.predicted among non-blacks MDRD (S/P/Bld) [Vol rate/Area] 39 mL/min/{1.73_m2} Low >60 [facility] Comment on above: Result Comment: Non- GFR Calc Performed By: #### L 100.0100, L500.4100, L502.0250, L500.4050 #### [facility] [address] [place], [address] Globulin (S) [Mass/Vol] 3.7 g/dL Normal 2.2-4.2 [facility] Comment on above: Performed By: #### L 100.0100, L500.4100, L502.0250, L500.4050 #### [facility] [address] [place], [address] Glucose [Mass/Vol] 152 mg/dL High 74-106 [facility] [place] Comment on above: Result Comment: Fast ing Glucose result greater than or equal to 126 mg/dL suggests DIABETES MELLITUS per A.D.A. criteria. Performed By: #### L 100.0100, L500.4100, L502.0250, L500.4050 #### [facility] [address] [place], [address] Potassium [Moles/Vol] 4.7 mmol/L Normal 3.5-5.1 [facility] Comment on above: Performed By: #### L 100.0100, L500.4100, L502.0250, L500.4050 #### [facility] [address] [place], [address] Sodium [Moles/Vol] 139 mmol/L Normal 136-145 [facility] [place] Comment on above: Performed By: #### L 100.0100, L500.4100, L502.0250, L500.4050 #### [facility] [address] [place], [address] T PROT 8.0 g/dL Normal 6.4-8.2 [facility] Comment on above: Performed By: #### L 100.0100, L500.4100, L502.0250, L500.4050 #### [facility] [address] [place], [address] Urea nitrogen [Mass/Vol] 37 mg/dL High 7-18 [facility] Comment on above: Performed By: #### L 100.0100, L500.4100, L502.0250, L500.4050 #### [facility] [address] [place], [address] Lipid Profileon 01-18-2024 Cholesterol [Mass/Vol] 110 mg/dL Normal 200 [facility] Comment on above: Result Comment: <200 mg/dL Desirable 200-240 mg/dL Borderline >240 mg/dL High Risk Performed By: #### L 100.0100, L500.4100, L502.0250, L500.4050 #### [facility] [address] [place], [address] Cholesterol in HDL [Mass/Vol] 39 mg/dL Low [facility] Comment on above: Result Comment: The drugs N-Acetylcysteine and Metamizole may falsely depress this assay. Reference Range HDL <40 mg/dL Low HDL Cholesterol HDL >or= 60 mg/dL High HDL Cholesterol Performed By: #### L 100.0100, L500.4100, L502.0250, L500.4050 #### [facility] [address] [place], [address] Cholesterol in LDL [Mass/Vol] 50 mg/dL Normal 0-130 [facility] Comment on above: Performed By: #### L 100.0100, L500.4100, L502.0250, L500.4050 #### [facility] [address] [place], [address] Cholesterol in VLDL [Mass/Vol] 21 mg/dL Normal 5-40 [facility] Comment on above: Performed By: #### L 100.0100, L500.4100, L502.0250, L500.4050 #### [facility] [address] [place], [address] Triglyceride [Mass/Vol] 106 mg/dL Normal [facility] Comment on above: Result Comment: The drugs N-Acetylcysteine and Metamizole may falsely depress this assay. Serum Triglycerides Reference Interval Normal <150 mg/dL Borderline high 150 - 199 mg/dL High 200 - 499 mg/dL Very High > or = 500 mg/dL Performed By: #### L 100.0100, L500.4100, L502.0250, L500.4050 #### [facility] [address] [place], [address] Microalb:Creat Ratio,Random URon 01-18-2024 MALB:CRE TNP Normal <30 mg/g CRE [facility] Comment on above: Performed By: #### L 100.0100, L500.4100, L502.0250, L500.4050 #### [facility] [address] [place], [address] MICROALBUMIN,UR 25.0 mg/L Normal NO RANGE EST. [facility] Comment on above: Performed By: #### L 100.0100, L500.4100, L502.0250, L500.4050 #### [facility] [address] [place], [address] UR CREAT < 13.00 Normal NO RANGE EST. [facility] Comment on above: Performed By: #### L 100.0100, L500.4100, L502.0250, L500.4050 #### [facility] [address] [place], [address] Absolute lymphocyte countOrd ered By: Monse North on 03-06-2023 Lymphocytes Auto (Unsp spec) [#/Vol] 4.78 10*3/uL 0.83-4.51 [facility] Basophil percentageOrdered B y: Monse North on 03-06-2023 Basophils/100 WBC (Bld) 0.6 % 0-1 [facility] Chloride [Moles/Vol] 106 mmol/L 98-107 [facility] Eosinophils/100 WBC (Bld) 2.9 % 0-5 [facility] Glucose [Mass/Vol] 155 mg/dL 74-106 [facility] [place] Comment on above: Fasting Glucose resu lt greater than or equal to 126 mg/dL suggests DIABETES MELLITUS per A.D.A. criteria. Neutrophils (Bld) [#/Vol] 3.9 10*3/uL 2.0-7.7 [facility] Neutrophils/100 WBC (Bld) 41.4 % 47-70 [facility] Potassium [Moles/Vol] 4.6 mmol/L 3.5-5.1 [facility] Comment on above: Moderate Hemolysis, Result may be falsely increased. Sodium [Moles/Vol] 138 mmol/L 136-145 [facility] [place] WBC (Bld) [#/Vol] 9.5 10*3/uL 4.4-11.0 [facility] [place] Blood erythrocytes count (nu mber/volume)Ordered By: Monse North on 03-06-2023 RBC (Bld) [#/Vol] 4.98 10*6/uL 4.6-6.2 [facility] Blood hemoglobin measurement (mass/volume)Ordered By: Monse North on 03-06-2023 Hemoglobin (Bld) [Mass/Vol] 15.1 g/dL 13.0-16.5 [facility] Blood lymphocytes/100 leukoc ytesOrdered By: Monse North on 03-06-2023 Lymphocytes/100 WBC (Bld) 50.3 % 19-41 [facility] Blood monocytes/100 leukocyt esOrdered By: Monse North on 03-06-2023 Monocytes/100 WBC (Bld) 4.7 % 0-10 [facility] Blood platelet mean volumeOr dered By: Monse North on 03-06-2023 Platelet mean volume (Bld) [Entitic vol] 11.2 fL 6.2-12.0 [facility] Determination of erythrocyte mean corpuscular volume (MCV)Ordered By: Monse North on 03-06-2023 MCV (RBC) [Entitic vol] 96.4 fL 80-94 [facility] Hematocrit Auto (Bld) [Volum e fraction]Ordered By: Monse North on 03-06-2023 Hematocrit (Bld) [Volume fraction] 48.0 % 40-54 [facility] - Chemistry and C hemistry - challengeOrdered By: Monse North on 03-06-2023 CO2 [Moles/Vol] 28.0 mmol/L 21.0-32.0 [facility] Urea nitrogen/Creatinine [Mass ratio] 19.4 mg/mg 10-20 [facility] - Hematology and Cell countsOrdered By: Monse North on 03-06-2023 Erythrocyte distribution width (RBC) [Entitic vol] 49.2 fL 35.1-43.9 [facility] Erythrocyte distribution width (RBC) [Ratio] 13.8 % 11.6-14.6 [facility] Immature granulocytes/100 WBC (Bld) 0.100 % 0.0-0.9 [facility] Comment on above: IG% - Immature Granu locytes (promyelocytes, myelocytes and metamyelocytes) > 1% indicates that a LEFT SHIFT is Present. MCH (RBC) [Entitic mass] 30.3 pg 27.0-32.0 [facility] Nucleated RBC/100 WBC (Bld) [Ratio] 0 % 0-5 [facility] MCHC Auto (RBC) [Mass/Vol]Or dered By: Monse North on 03-06-2023 MCHC (RBC) [Mass/Vol] 31.5 g/dL 32-36 [facility] No Panel InformationOrdered By: Monse North on 03-06-2023 Estimated GFR (MDRD) Amer 57 mL/min >60 [facility] Comment on above: GFR Calc Estimated GFR (MDRD) Non-Af Amer 47 mL/min >60 [facility] Comment on above: Non- GFR Calc Platelets bldOrdered By: Mikie North on 03-06-2023 Platelets (Bld) [#/Vol] 183 10*3/uL 150-450 [facility] Serum or plasma calcium bj urement (mass/volume)Ordered By: Monse North on 03-06-2023 Calcium [Mass/Vol] 8.4 mg/dL 8.5-10.1 [facility] [place] Serum or plasma creatinine m easurement (mass/volume)Ordered By: Monse North on 03-06-2023 Creatinine [Mass/Vol] 1.55 mg/dL 0.70-1.30 [facility] Comment on above: The validity of the calculated GFR & GFRAA in patients over 70 years has not been determined. Clinical correlation is essential. Serum or plasma urea nitroge n measurement (mass/volume)Ordered By: Monse North on 03-06-2023 Urea nitrogen [Mass/Vol] 30 mg/dL 7-18 [facility] Thin prep Papanicolaou smear with manual screeningOrdered By: Monse North on 03-06-2023 Thin prep Papanicolaou smear with manual screening 4 5-15 [facility] Absolute lymphocyte countOrd ered By: Warren Olivarez on 02-01-2023 Lymphocytes Auto (Unsp spec) [#/Vol] 4.13 10*3/uL 0.83-4.51 [facility] Basophil percentageOrdered B y: Warren Olivarez on 02-01-2023 Basophils/100 WBC (Bld) 0.6 % 0-1 [facility] Eosinophils/100 WBC (Bld) 2.6 % 0-5 [facility] Neutrophils (Bld) [#/Vol] 4.2 10*3/uL 2.0-7.7 [facility] Neutrophils/100 WBC (Bld) 45.6 % 47-70 [facility] WBC (Bld) [#/Vol] 9.3 10*3/uL 4.4-11.0 [facility] [place] Blood erythrocytes count (nu mber/volume)Ordered By: Warren Olivarez on 02-01-2023 RBC (Bld) [#/Vol] 4.83 10*6/uL 4.6-6.2 [facility] Blood hemoglobin measurement (mass/volume)Ordered By: Warren Olivarez on 02-01-2023 Hemoglobin (Bld) [Mass/Vol] 14.6 g/dL 13.0-16.5 [facility] Blood lymphocytes/100 leukoc ytesOrdered By: Warren Olivarez on 02-01-2023 Lymphocytes/100 WBC (Bld) 44.6 % 19-41 [facility] Blood monocytes/100 leukocyt esOrdered By: Warren Olivarez on 02-01-2023 Monocytes/100 WBC (Bld) 6.3 % 0-10 [facility] Blood platelet mean volumeOr dered By: Warren Olivarez on 02-01-2023 Platelet mean volume (Bld) [Entitic vol] 11.2 fL 6.2-12.0 [facility] Determination of erythrocyte mean corpuscular volume (MCV)Ordered By: Warren Olivarez on 02-01-2023 MCV (RBC) [Entitic vol] 97.1 fL 80-94 [facility] Erythrocyte sedimentation ra teOrdered By: Warren Olivarez on 02-01-2023 ESR (Bld) [Velocity] 63 mm/h 0-20 [facility] Hematocrit Auto (Bld) [Volum e fraction]Ordered By: Warren Olivarez on 02-01-2023 Hematocrit (Bld) [Volume fraction] 46.9 % 40-54 [facility] - Hematology and Cell countsOrdered By: Warren Olivarez on 02-01-2023 Erythrocyte distribution width (RBC) [Entitic vol] 51.3 fL 35.1-43.9 [facility] Erythrocyte distribution width (RBC) [Ratio] 14.2 % 11.6-14.6 [facility] Immature granulocytes/100 WBC (Bld) 0.300 % 0.0-0.9 [facility] Comment on above: IG% - Immature Granu locytes (promyelocytes, myelocytes and metamyelocytes) > 1% indicates that a LEFT SHIFT is Present. MCH (RBC) [Entitic mass] 30.2 pg 27.0-32.0 [facility] Nucleated RBC/100 WBC (Bld) [Ratio] 0 % 0-5 [facility] MCHC Auto (RBC) [Mass/Vol]Or dered By: Warren Olivarez on 02-01-2023 MCHC (RBC) [Mass/Vol] 31.1 g/dL 32-36 [facility] Platelets bldOrdered By: Hubert Olivarez on 02-01-2023 Platelets (Bld) [#/Vol] 194 10*3/uL 150-450 [facility] Serum or plasma C reactive p rotein measurement (mass/volume)Ordered By: Warren Olivarez on 02-01-2023 CRP [Mass/Vol] 8.48 mg/L 0.0-3.0 [facility] Comment on above: C-Reactive Protein ( CRP) provides useful information for thediagnosis, therapy and monitoring of inflammatory processesand associated diseases. For the evaluation of Relative Riskfor Cardiovascular Disease, a High Sensitivity CRP (HSCRP)should be ordered. Absolute lymphocyte countOrd ered By: Fatoumata Red on 01-13-2023 Lymphocytes Auto (Unsp spec) [#/Vol] 2.43 10*3/uL 0.83-4.51 [facility] Basophil percentageOrdered B y: Fatoumata Red on 01-13-2023 Basophils/100 WBC (Bld) 0.8 % 0-1 [facility] Bilirubin [Mass/Vol] 0.40 mg/dL 0.20-1.00 [facility] Comment on above: For patients on eltr ombopag therapy, use of Dimension Tarzan TBIL is not recommended. Chloride [Moles/Vol] 107 mmol/L 98-107 [facility] Cholesterol [Mass/Vol] 104 mg/dL <200 [facility] Comment on above: <200 mg/dL Desirable 200-240 mg/dL Borderline >240 mg/dL High Risk Eosinophils/100 WBC (Bld) 2.4 % 0-5 [facility] Glucose [Mass/Vol] 189 mg/dL 74-106 [facility] [place] Comment on above: Fasting Glucose resu lt greater than or equal to 126 mg/dL suggests DIABETES MELLITUS per A.D.A. criteria. Neutrophils (Bld) [#/Vol] 4.6 10*3/uL 2.0-7.7 [facility] Neutrophils/100 WBC (Bld) 58.7 % 47-70 [facility] Potassium [Moles/Vol] 3.9 mmol/L 3.5-5.1 [facility] Protein [Mass/Vol] 7.5 g/dL 6.4-8.2 [facility] [place] Sodium [Moles/Vol] 138 mmol/L 136-145 [facility] [place] Triglyceride [Mass/Vol] 100 mg/dL <199 [facility] Comment on above: The drugs N-Acetylcy steine and Metamizole may falsely depress this assay.Serum Triglycerides Reference Interval Normal <150 mg/dL Borderline high 150 - 199 mg/dL High 200 - 499 mg/dL Very High > or = 500 mg/dL WBC (Bld) [#/Vol] 7.8 10*3/uL 4.4-11.0 [facility] [place] Blood erythrocytes count (nu mber/volume)Ordered By: Fatoumata Red on 01-13-2023 RBC (Bld) [#/Vol] 4.75 10*6/uL 4.6-6.2 [facility] Blood hemoglobin measurement (mass/volume)Ordered By: Fatoumata Red on 01-13-2023 Hemoglobin (Bld) [Mass/Vol] 14.7 g/dL 13.0-16.5 [facility] Blood lymphocytes/100 leukoc ytesOrdered By: Fatoumata Red on 01-13-2023 Lymphocytes/100 WBC (Bld) 31.2 % 19-41 [facility] Blood monocytes/100 leukocyt esOrdered By: Fatoumata Red on 01-13-2023 Monocytes/100 WBC (Bld) 6.6 % 0-10 [facility] Blood platelet mean volumeOr dered By: Fatoumata Red on 01-13-2023 Platelet mean volume (Bld) [Entitic vol] 10.9 fL 6.2-12.0 [facility] Determination of erythrocyte mean corpuscular volume (MCV)Ordered By: Fatoumata Red on 01-13-2023 MCV (RBC) [Entitic vol] 97.3 fL 80-94 [facility] Hematocrit Auto (Bld) [Volum e fraction]Ordered By: Fatoumata Red on 01-13-2023 Hematocrit (Bld) [Volume fraction] 46.2 % 40-54 [facility] - Chemistry and C hemistry - challengeOrdered By: Fatoumata Red on 01-13-2023 ALP [Catalytic activity/Vol] 98 U/L 45-117 [facility] ALT [Catalytic activity/Vol] 19 U/L 16-61 [facility] CO2 [Moles/Vol] 25.0 mmol/L 21.0-32.0 [facility] Globulin (S) [Mass/Vol] 4.0 g/dL 2.2-4.2 [facility] Urea nitrogen/Creatinine [Mass ratio] 20.4 mg/mg 10-20 [facility] - Hematology and Cell countsOrdered By: Fatoumata Red on 01-13-2023 Erythrocyte distribution width (RBC) [Entitic vol] 50.3 fL 35.1-43.9 [facility] Erythrocyte distribution width (RBC) [Ratio] 13.8 % 11.6-14.6 [facility] Immature granulocytes/100 WBC (Bld) 0.300 % 0.0-0.9 [facility] Comment on above: IG% - Immature Granu locytes (promyelocytes, myelocytes and metamyelocytes) > 1% indicates that a LEFT SHIFT is Present. MCH (RBC) [Entitic mass] 30.9 pg 27.0-32.0 [facility] Nucleated RBC/100 WBC (Bld) [Ratio] 0 % 0-5 [facility] MCHC Auto (RBC) [Mass/Vol]Or dered By: Fatoumata Red on 01-13-2023 MCHC (RBC) [Mass/Vol] 31.8 g/dL 32-36 [facility] No Panel InformationOrdered By: Fatoumata Red on 01-13-2023 Estimated GFR (MDRD) Amer 55 mL/min >60 [facility] Comment on above: GFR Calc Estimated GFR (MDRD) Non-Af Amer 45 mL/min >60 [facility] Comment on above: Non- GFR Calc Platelets bldOrdered By: Tal Red on 01-13-2023 Platelets (Bld) [#/Vol] 216 10*3/uL 150-450 [facility] Serum or plasma albumin bj urement (mass/volume)Ordered By: Fatoumata Red on 01-13-2023 Albumin [Mass/Vol] 3.5 g/dL 3.2-5.0 [facility] [place] Serum or plasma albumin/glob ulin mass ratioOrdered By: Fatoumata Red on 01-13-2023 Albumin/Globulin [Mass ratio] 0.9 {ratio} 0.9-2.4 [facility] Serum or plasma calcium bj urement (mass/volume)Ordered By: Fatoumata Red on 01-13-2023 Calcium [Mass/Vol] 8.7 mg/dL 8.5-10.1 [facility] [place] Serum or plasma cholesterol in HDL measurement (mass/volume)Ordered By: Fatoumata Red on 01-13-2023 Cholesterol in HDL [Mass/Vol] 36 mg/dL >40 [facility] Comment on above: The drugs N-Acetylcy steine and Metamizole may falsely depress this assay. Reference Range HDL <40 mg/dL Low HDL Cholesterol HDL >or= 60 mg/dL High HDL Cholesterol Serum or plasma cholesterol in VLDL measurement (mass/volume)Ordered By: Fatoumata Red on 01-13-2023 Cholesterol in VLDL [Mass/Vol] 20 mg/dL 5-40 [facility] Serum or plasma creatinine m easurement (mass/volume)Ordered By: Fatoumata Red on 01-13-2023 Creatinine [Mass/Vol] 1.62 mg/dL 0.70-1.30 [facility] Comment on above: The validity of the calculated GFR & GFRAA in patients over 70 years has not been determined. Clinical correlation is essential. Serum or plasma low density lipoprotein (LDL) cholesterol measurement (mass/volume)Ordered By: Fatoumata Red on 01-13-2023 Cholesterol in LDL [Mass/Vol] 48 mg/dL 0-130 [facility] Serum or plasma urea nitroge n measurement (mass/volume)Ordered By: Fatoumata Red on 01-13-2023 Urea nitrogen [Mass/Vol] 33 mg/dL 7-18 [facility] Thin prep Papanicolaou smear with manual screeningOrdered By: Fatoumata Red on 01-13-2023 Thin prep Papanicolaou smear with manual screening 10 U/L 15-37 [facility] Thin prep Papanicolaou smear with manual screening 6 5-15 [facility] Urine creatinine measurement (mass/volume)Ordered By: Fatoumata Red on 01-13-2023 Creatinine (U) [Mass/Vol] 42.40 mg/dL NO RANGE EST. [facility] Urine protein measurement (m ass/volume)Ordered By: Fatoumata Red on 01-13-2023 Protein (U) [Mass/Vol] 9.8 mg/dL 0.0-11.8 [facility] Urine protein/creatinine mas s ratioOrdered By: Fatoumata Red on 01-13-2023 Protein/Creatinine (U) [Mass ratio] 231 mg/g CRE 0-200 [facility] Whole blood hemoglobin A1c/t otal hemoglobin ratio (mass fraction)Ordered By: Fatoumata Red on 01-13-2023 HbA1c (Bld) [Mass fraction] 6.9 % 3.8-5.6 [facility] Comment on above: Normal < 5.7 % Predi abetic 5.7 - 6.4 % Diabetic >or= 6.5 % Please note range changes. Basophil percentageon 2021 Basophil percentage 3.5 mg/dL 2.5-4.9 [facility] Work Phone: Chloride [Moles/Vol] 104 mmol/L 98-107 [facility] Work Phone: Glucose [Mass/Vol] 217 mg/dL 74-106 [facility] [place] Work Phone: Comment on above: Glucose result great er than or equal to 200 mg/dLsuggests DIABETES MELLITUS per A.D.A. criteria. Potassium [Moles/Vol] 4.6 mmol/L 3.5-5.1 [facility] Work Phone: Sodium [Moles/Vol] 137 mmol/L 136-145 [facility] Work Phone: Laboratory - Chemistry and C hemistry - challengeon 09-10-2021 CO2 [Moles/Vol] 27.0 mmol/L 21.0-32.0 [facility] Work Phone: Urea nitrogen/Creatinine [Mass ratio] 13.1 mg/mg 10-20 [facility] Work Phone: No Panel Informationon 09-10 Estimated GFR (MDRD) Amer 53 mL/min >60 [facility] [facility] Work Phone: Comment on above: GFR Calc Estimated GFR (MDRD) Non-Af Amer 43 mL/min >60 [facility] Work Phone: Comment on above: Non- GFR Calc Serum or plasma albumin bj urement (mass/volume)on 09-10-2021 Albumin [Mass/Vol] 4.0 g/dL 3.2-5.0 [facility] [place] Work Phone: Serum or plasma calcium bj urement (mass/volume)on 09-10-2021 Calcium [Mass/Vol] 8.6 mg/dL 8.5-10.1 [facility] [place] Work Phone: Serum or plasma creatinine m easurement (mass/volume)on 09-10-2021 Creatinine [Mass/Vol] 1.68 mg/dL 0.70-1.30 [facility] Work Phone: Comment on above: The validity of the calculated GFR & GFRAA in patients over 70 years has not been determined. Clinical correlation is essential. Serum or plasma urea nitroge n measurement (mass/volume)on 09-10-2021 Urea nitrogen [Mass/Vol] 22 mg/dL 7-18 [facility] Work Phone: Urine creatinine measurement (mass/volume)on 09-02-2021 Creatinine (U) [Mass/Vol] 78.50 mg/dL NO RANGE EST. [facility] Work Phone: Urine protein measurement (m ass/volume)on 09-02-2021 Protein (U) [Mass/Vol] 15.7 mg/dL 0.0-11.8 [facility] Work Phone: Urine protein/creatinine mas s ratioon 09-02-2021 Protein/Creatinine (U) [Mass ratio] 200 mg/g CRE 0-200 [facility] Work Phone: CNPNon 09-01-2021 CNPN Telephone (AMANDA) SHELBI GARCIA ([id number]) 1955 M Date Time Provider Department 09/01/21 JP DENIS During your visit today, we recorded the following information about you: Sue Hannon 09/01/2021 10:[address] Soler's office at [facility] called requesting the last office note from pts last visit with Dr. Denis on 07/14/21. This was missing from the original fax they received. Nancy Quezada LPN 09/01/2021 10:30 AM Signed Last OV notes faxed as directed. Nancy Quezada LPN Allergies As of Date: 09/01/2021 Noted Allergy Reaction ZYBAN (BUPROPION (SMOKING DETER)) 01/28/2005 4 - Hives BENADRILINA (DIPHENHYDRAMINE HCL) 07/17/2013 4 - Hives Date Reviewed: 07/14/2021 Reviewed by: Carl Laws Ma - Fully Assessed Reason for Visit: Information [0738] Prescriptions as of 09/01/2021 - apixaban (ELIQUIS) 5 mg tab(s) Take 5 mg by mouth twice daily. - clopidogrel (PLAVIX) 75 mg tablet Take 75 mg by mouth once daily. - empagliflozin (JARDIANCE) 10 mg tablet Take 10 mg by mouth twice daily. - triamterene-hydrochlor othiazide 37.5-25 mg per capsule Take 1 capsule by mouth once daily. - metoprolol succinate XL, long acting, (TOPROL XL) 50 mg 24 hr tablet Take 1 tablet by mouth once daily. - lisinopril 5 mg tablet Take 1 tablet by mouth twice daily. - amitriptyline 25 mg tablet Take 1 tablet by mouth daily at bedtime. - escitalopram (LEXAPRO) 20 mg tablet Take 1 tablet by mouth once daily. - lansoprazole (PREVACID) 30 mg capsule Take 1 capsule by mouth once daily. - rosuvastatin (CRESTOR) 40 mg tablet Take 1 tablet by mouth once daily. - W-Riapvua-K3 Zkbw-Beuwbz-I18 3-35-2 mg tab or Capsule Take 1 tablet by mouth twice daily. - vitamin b complex tab Take 1 tablet by mouth once daily. - COMPOUNDED PRESCRIPTION Take 1 mg by mouth as directed. coumadin 1,2.5, 3, 4, or 4.5 mg once daily as directed depending on INR results - ASPIRIN 81 MG TAB Take one (1) tablet daily . 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 I was perplexed by this but then found out he was recently prescribed methotrexate for his rheumatoid arthritis. He is taking 20 mg once a week. This likely accounts for the anemia and the neutropenia. 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 Please fax a copy of this note, my most recent office visit note and all lab work to Dr. Dasia Helton his infant and toddler teacher at the [place] [facility]. DO Ronel Fernandes LPN 07/19/2021 1:18 PM Signed Faxed as requested. Ronel Rosen LPN Allergies As of Date: 07/19/2021 Noted Allergy Reaction ZYBAN (BUPROPION (SMOKING DETER)) 01/28/2005 4 - Hives BENADRILINA (DIPHENHYDRAMINE HCL) 07/17/2013 4 - Hives Date Reviewed: 07/14/2021 Reviewed by: Carl Laws Ma - Fully Assessed Reason for Visit: Results [95] Prescriptions as of 07/19/2021 - apixaban (ELIQUIS) 5 mg tab(s) Take 5 mg by mouth twice daily. - clopidogrel (PLAVIX) 75 mg tablet Take 75 mg by mouth once daily. - empagliflozin (JARDIANCE) 10 mg tablet Take 10 mg by mouth twice daily. - triamterene-hydrochlor othiazide 37.5-25 mg per capsule Take 1 capsule by mouth once daily. - metoprolol succinate XL, long acting, (TOPROL XL) 50 mg 24 hr tablet Take 1 tablet by mouth once daily. - lisinopril 5 mg tablet Take 1 tablet by mouth twice daily. - amitriptyline 25 mg tablet Take 1 tablet by mouth daily at bedtime. - escitalopram (LEXAPRO) 20 mg tablet Take 1 tablet by mouth once daily. - lansoprazole (PREVACID) 30 mg capsule Take 1 capsule by mouth once daily. - rosuvastatin (CRESTOR) 40 mg tablet Take 1 tablet by mouth once daily. - V-Bwxfixg-X3 Zqrb-Wmvbbc-Y24 3-35-2 mg tab or Capsule Take 1 tablet by mouth twice daily. - vitamin b complex tab Take 1 tablet by mouth once daily. - COMPOUNDED PRESCRIPTION Take 1 mg by mouth as directed. coumadin 1,2.5, 3, 4, or 4.5 mg once daily as directed depending on INR results - ASPIRIN 81 MG TAB Take one (1) tablet daily . 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 Cholesterol [Mass/Vol] 63 mg/dL <[address] [facility] Work Phone: Comment on above: <200 mg/dL Desirable 200-240 mg/dL Borderline >240 mg/dL High Risk Protein [Mass/Vol] 7.5 g/dL 6.4-8.2 [facility] Work [facility]: Triglyceride [Mass/Vol] 93 mg/dL [facility] Work Phone: Comment on above: The drugs N-Acetylcy steine and Metamizole may falsely depress this assay.Serum Triglycerides Reference Interval Normal <150 mg/dL Borderline high 150 - 199 mg/dL High 200 - 499 mg/dL Very High > or = 500 mg/dL CBC W Ordered Manual Differe ntial panel (Bld)on 07-15-2021 Basophils (Bld) [#/Vol] 10*3/uL Normal <0.11 C [facility] Comment on above: Order Comment: Speci men Type: BLOOD SPECIMENOrdering Facility: [facility] Address: [address] [place], [place] [address] Performed By: #### 5 7782-5 ####[facility] MILDREDDISTANTIRIS [id number] [place] [id number] [place] [address] STATES OF [facility] LABCLIA [id number] [facility] INCDESK [address] [place]#### STFREV ####[facility] LABCLIA [id number] [place] [address] [place] Basophils/100 WBC (Bld) 0.0 % Normal [facility] Comment on above: Order Comment: Speci men Type: BLOOD SPECIMENOrdering Facility: [facility] Address: [address] [place] [address] Performed By: #### 5 7782-5 ####[facility]ENTERWKSLIA [id number] [address] STATES OF [facility] LABCLIA [id number] [place] [address] [place]#### STFREV ####[facility] LABCLIA [id number] [place] [address] [place] Differential cell count method Nom (Bld) Auto Normal [facility] Comment on above: Order Comment: Speci men Type: BLOOD SPECIMENOrdering Facility: [facility] Address: [address] [place], [place] [id number] Performed By: #### 5 7782-5 ####[facility] [id number] [place] [address] [place] [facility] LABCLIA [id number] [place] [address] [place]#### STFREV ####[facility] LABCLIA [id number] [place] [address] [place] Eosinophils (Bld) [#/Vol] 0.24 10*3/uL Normal <0.46 [facility] Comment on above: Order Comment: Speci men Type: BLOOD SPECIMENOrdering Facility: [facility] Address: [address] [place] [address] Performed By: #### 5 7782-5 ####[facility] BEACHESTOWNCLIA [id number] [place] [address] [place] [facility] LABCLIA [id number] [place] [address] [place]#### STFREV ####[facility] LABCLIA [id number] [place] [address] [place] Eosinophils/100 WBC (Bld) 10.3 % Normal [facility] Comment on above: Order Comment: Speci men Type: BLOOD SPECIMENOrdering Facility: [facility] Address: [address] [place] [address] Performed By: #### 5 7782-5 ####[facility] [id number] [address] STATES OF [facility] LABCLIA [id number] [place] [address] [place]#### STFREV ####[facility] LABCLIA [id number] [place] [address] [place] Erythrocyte distribution width (RBC) [Ratio] 13.4 % Normal 11.5-15.0 [facility] Comment on above: Order Comment: Speci men Type: BLOOD SPECIMENOrdering Facility: [facility] Address: [address] [place] [id number] Performed By: #### 5 7782-5 ####[facility]ENTERWNCLIA [id number] [address] STATES OF [facility] LABCLIA [id number] [place] [address] [place]#### STFREV ####[facility] LABCLIA [id number] [place] [address] [place] Hematocrit (Bld) [Volume fraction] 36.1 % Low 39.0-51.0 [facility] Comment on above: Order Comment: Speci men Type: BLOOD SPECIMENOrdering Facility: [facility] Address: [address] [place] [id number] Performed By: #### 5 7782-5 ####[facility] MILLTOWNCLIA [id number] [place] [address] [place] [facility] LABCLIA [id number] [place] [address] [place]#### STFREV ####[facility] LABCLIA [id number] [place] [address] [place] Hemoglobin (Bld) [Mass/Vol] 12.2 g/dL Low 13.0-17.0 [facility] Comment on above: Order Comment: Speci men Type: BLOOD SPECIMENOrdering Facility: [facility] Address: [address] [place] [id number] Performed By: #### 5 7782-5 ####[facility]ITALNCLIA [id number] [address] STATES [facility] LABCLIA [id number] [place] [address] [place]#### STFREV ####[facility] LABCLIA [id number] [place] [address] [place] HYPOGRANULATED PMNS Occasional Normal [facility] Comment on above: Order Comment: Speci men Type: BLOOD SPECIMENOrdering Facility: [facility] Address: [address] [place] [id number] Performed By: #### 5 7782-5 ####[facility] MILLTOWNCLIA [id number] [address] STATES OF [facility] LABCLIA [id number] [place] [address] [place]#### STFREV ####[facility] LABIA [id number] [place] [address] [place] IMMATURE GRAN % 0.4 % Normal [facility] Comment on above: Order Comment: Speci men Type: BLOOD SPECIMENOrdering Facility: [facility] Address: [address] [place] [address] Performed By: #### 5 7782-5 ####[facility] [id number] [address] OF [facility] LABIA [id number] [place] [address] [place]#### STFREV ####[facility] LIM[facility]IA [id number] [place] [address] [place] IMMATURE GRAN ABS <0.03 Normal <0.10 [facility] [place] Comment on above: Order Comment: Speci men Type: BLOOD SPECIMENOrdering Facility: [facility] Address: [address] [place] [address] Performed By: #### 5 7782-5 ####[facility] [id number] [place] [address] [place] [facility] OF [facility] LABIA [id number] [address] STATES OF [place]#### STFREV ####[facility] LABSPRINGFIELD H[facility]PITAL [id number] [place] [address] [place] Lymphocytes (Bld) [#/Vol] 1.65 10*3/uL Normal 1.00-4.00 [facility] Comment on above: Order Comment: Speci men Type: BLOOD SPECIMENOrdering Facility: [facility] Address: [address] [place] [address] Performed By: #### 5 7782-5 ####[facility]ITALL[facility] [id number] [address] STATES OF [facility] LABCLIA [id number] [place] [address] [place]#### STFREV ####[facility] LABCLIA [id number] [place] [address] [place] Lymphocytes/100 WBC (Bld) 70.5 % Normal [facility] Comment on above: Order Comment: Speci men Type: BLOOD SPECIMENOrdering Facility: [facility] Address: [address] [place] [address] Performed By: #### 5 7782-5 ####[facility] [id number] [address] LABCLIA [id number] [place] [address] [place]#### STFREV ####[facility] LABCLIA [id number] [place] [address] [place] MCH (RBC) [Entitic mass] 32.7 pg Normal 26.0-34.0 [facility] Comment on above: Order Comment: Speci men Type: BLOOD SPECIMENOrdering Facility: [facility] Address: [address] [place], [place] [address] Performed By: #### 5 7782-5 ####[facility]ITALL[facility] [id number] [address] STATES OF [facility] LABCLIA [id number] [place] [address] [place]#### STFREV ####[facility] LABCLIA [id number] [address] STATES OF [place] MCHC (RBC) [Mass/Vol] 33.8 g/dL Normal 30.5-36.0 [facility] Comment on above: Order Comment: Speci men Type: BLOOD SPECIMENOrdering Facility: [facility] Address: [address] [place] [address] Performed By: #### 5 7782-5 ####[facility]ENTERWKSLIA [id number] [address] OF [facility] LABCLIA [id number] [address] STATES OF [place]#### STFREV ####[facility] LABCLIA [id number] [place] [address] [place] MCV (RBC) [Entitic vol] 96.8 fL Normal 80.0-100.0 [facility] Comment on above: Order Comment: Speci men Type: BLOOD SPECIMENOrdering Facility: [facility] Address: [address] [place] [id number] Performed By: #### 5 7782-5 ####[facility]ALL[facility] [id number] [address] OF [facility] LABCLIA [id number] [address] STATES OF [place]#### STFREV ####[facility] LABCLIA [id number] [place] [address] [place] Monocytes (Bld) [#/Vol] 0.05 10*3/uL Normal <0.87 [facility] Comment on above: Order Comment: Speci men Type: BLOOD SPECIMENOrdering Facility: [facility] Address: [address] [place], [place] [address] Performed By: #### 5 7782-5 ####[facility] BEACHESTOWNCLIA [id number] [place] [address] [place] [facility] LABCLIA [id number] [place] [address] [place]#### STFREV ####[facility] LABCLIA [id number] [place] [address] [place] Monocytes/100 WBC (Bld) 2.1 % [facility] Comment on above: Order Comment: Speci men Type: BLOOD SPECIMENOrdering Facility: [facility] Address: [address] [place] [address] Performed By: #### 5 7782-5 ####[facility] [id number] [address] STATES OF [facility] LABCLIA [id number] [place] [address] [place]#### STFREV ####[facility] LABCLIA [id number] [place] [address] [place] Neutrophils (Bld) [#/Vol] 0.39 10*3/uL Low 1.45-7.50 [facility] Comment on above: Order Comment: Speci men Type: BLOOD SPECIMENOrdering Facility: [facility] Address: [address] [place] [address] Performed By: #### 5 7782-5 ####[facility]ENTERWKSLIA [id number] [address] STATES OF [facility] LABCLIA [id number] [place] [address] [place]#### STFREV ####[facility] LABCLIA [id number] [place] [id number] [address] [place] Neutrophils/100 WBC (Bld) 16.7 % Normal [facility] Comment on above: Order Comment: Speci men Type: BLOOD SPECIMENOrdering Facility: [facility] Address: [address] [place] [address] Performed By: #### 5 7782-5 ####[facility] MILLTOWNCLIA [id number] [place] [address] [place] [facility] LABCLIA [id number] [place] [address] [place]#### STFREV ####[facility] LABCLIA [id number] [place] [address] [place] Nucleated RBC (Bld) [#/Vol] 0.03 10*3/uL High <0.01 [facility] Comment on above: Order Comment: Speci men Type: BLOOD SPECIMENOrdering Facility: [facility] Address: [address] [place] [address] Performed By: #### 5 7782-5 ####[facility]ENTERWNCLIA [id number] [address] LABCLIA [id number] [place] [address] [place]#### STFREV ####[facility] LABCLIA [id number] [place] [address] [place] Nucleated RBC/100 WBC (Bld) [Ratio] 1.3 /100 WBC Normal [facility] Comment on above: Order Comment: Speci men Type: BLOOD SPECIMENOrdering Facility: [facility] Address: [address] [place] [address] Performed By: #### 5 7782-5 ####[facility] MILLTOWNCLIA [id number] [address] STATES OF [facility] LABCLIA [id number] [place] [address] [place]#### STFREV ####[facility] LABCLIA [id number] [place] [address] [place] PLATELET ESTIMATE Adequate Normal [facility] Comment on above: Order Comment: Speci men Type: BLOOD SPECIMENOrdering Facility: [facility] Address: [address] [place] [address] Performed By: #### 5 7782-5 ####[facility]ALL[facility] [id number] [address] STATES OF [facility] LABCLIA [id number] [place] [address] [place]#### STFREV ####[facility] LABIA [id number] [place] [address] [place] Platelet mean volume (Bld) [Entitic vol] 10.1 fL Normal 9.0-12.7 [facility] Comment on above: Order Comment: Speci men Type: BLOOD SPECIMENOrdering Facility: [facility] Address: [address] [place] [address] Performed By: #### 5 7782-5 ####[facility] [id number] [place] [address] [place] [facility] LABCLIA [id number] [place] [address] [place]#### STFREV ####[facility] LABIA [id number] [place] [address] [place] Platelets (Bld) [#/Vol] 173 10*3/uL Normal 150-400 [facility] Comment on above: Order Comment: Speci men Type: BLOOD SPECIMENOrdering Facility: [facility] Address: [address] [place] [address] Performed By: #### 5 7782-5 ####[facility] MILLTOWNCLIA [id number] [place] [address] [place] [facility] LABCLIA [id number] [place] [address] [place]#### STFREV ####[facility] LABCLIA [id number] [place] [address] [place] Polychromasia LM Ql (Bld) Slight Normal [facility] Comment on above: Order Comment: Speci men Type: BLOOD SPECIMENOrdering Facility: [facility] Address: [address] [place] [address] Performed By: #### 5 7782-5 ####[facility]ITALNCLIA [id number] [place] [address] [place] [facility] LABCLIA [id number] [place] [address] [place]#### STFREV ####[facility] LABCLIA [id number] [place] [address] [place] RBC (Bld) [#/Vol] 3.73 10*6/uL Low 4.20-6.00 [facility] Comment on above: Order Comment: Speci men Type: BLOOD SPECIMENOrdering Facility: [facility] Address: [address] [place] [address] Performed By: #### 5 7782-5 ####[facility]ENTERWNCLIA [id number] [place] [address] [place] [facility] LABCLIA [id number] [place] [address] [place]#### STFREV ####[facility] LABCLIA [id number] [place] [address] [place] RED CELL MORPH Unremarkable Normal [facility] Comment on above: Order Comment: Speci men Type: BLOOD SPECIMENOrdering Facility: [facility] Address: [address] [place] [address] Performed By: #### 5 7782-5 ####[facility] [id number] [place] [address] [place] [facility] LABCLIA [id number] [place] [address] [place]#### STFREV ####[facility] LABCLIA [id number] [place] [address] [place] WBC (Bld) [#/Vol] 2.31 10*3/uL Low 3.70-11.00 [facility] Comment on above: Order Comment: Speci men Type: BLOOD SPECIMENOrdering Facility: [facility] Address: [address] [place] [address] Performed By: #### 5 7782-5 ####[facility] [id number] [place] [address] [place] [facility] LABCLIA [id number] [place] [address] [place]#### STFREV ####[facility] LABCLIA [id number] [place] [address] [place] Direct bilirubinon Bilirubin.direct [Mass/Vol] 0.18 mg/dL 0.00-0.30 [facility] Work Phone: Laboratory - Chemistry and C hemistry - challengeon 07-15-2021 ALP [Catalytic activity/Vol] 92 U/L 45-117 [facility] Work Phone: ALT [Catalytic activity/Vol] 142 U/L 16-61 [facility] Work Phone: Globulin (S) [Mass/Vol] 3.8 g/dL 2.2-4.2 [facility] Work Phone: No Panel Informationon 07-15 Estimated GFR (MDRD) Amer 48 mL/min >60 [facility] Work Phone: Comment on above: GFR Calc Estimated GFR (MDRD) Non-Af Amer 39 mL/min >60 [facility] Work Phone: Comment on above: Non- GFR Calc PATHOLOGIST INTERPRETATION C BC/DIFFon 07-15-2021 Senior Engineering Team Leader review Best (Unsp spec) [Interp] Reviewed by Merari Malcolm M.D. Normal [facility] Comment on above: Order Comment: Speci men Type: BLOOD SPECIMENOrdering Facility: [facility] Address: [address] [place] [address] Performed By: #### 5 7782-5 ####[facility] [id number] [address] LABCLIA [id number] [address] [place]#### STFREV ####[facility] LABCLIA [id number] [address] [place] STAFF REVIEW, CBCDIF Normal [facility] Comment on above: Order Comment: Speci men Type: BLOOD SPECIMENOrdering Facility: [facility] Address: [address] [place] [address] Result Comment: Norm ocytic anemia with slight polychromasia Leukopenia with absolute neutropenia Performed By: #### 5 7782-5 ####[facility]ITAL[facility]CL[facility] [id number] [address] STATES OF [facility] LABCLIA [id number] [address] [address] [place]#### STFREV ####[facility] LABCLIA [id number] [address] [address] [place] Serum or plasma albumin bj urement (mass/volume)on 07-15-2021 Albumin [Mass/Vol] 3.7 g/dL 3.2-5.0 [facility] Work Phone: Serum or plasma cholesterol in HDL measurement (mass/volume)on 07-15-2021 Cholesterol in HDL [Mass/Vol] 30 mg/dL [facility] Work Phone: Comment on above: The drugs N-Acetylcy steine and Metamizole may falsely depress this assay. Reference Range HDL <40 mg/dL Low HDL Cholesterol HDL >or= 60 mg/dL High HDL Cholesterol Serum or plasma cholesterol in VLDL measurement (mass/volume)on 07-15-2021 Cholesterol in VLDL [Mass/Vol] 19 mg/dL 5-40 [facility] Work Phone: Serum or plasma creatinine m easurement (mass/volume)on 07-15-2021 Creatinine [Mass/Vol] 1.83 mg/dL 0.70-1.30 [facility] Work Phone: Comment on above: The validity of the calculated GFR & GFRAA in patients over 70 years has not been determined. Clinical correlation is essential. Serum or plasma low density lipoprotein (LDL) cholesterol measurement (mass/volume)on 07-15-2021 Cholesterol in LDL [Mass/Vol] 14 mg/dL 0-130 [facility] Work Phone: Thin prep Papanicolaou smear with manual screeningon 07-15-2021 Thin prep Papanicolaou smear with manual screening 48 U/L 15-37 [facility] Work Phone: Basic metabolic 2000 panelon 07-14-2021 Anion gap [Moles/Vol] 10 mmol/L Normal 9-18 [facility] Comment on above: Order Comment: Speci men Type: BLOOD SPECIMENOrdering Facility: [facility] Address: [address] [place] [address] Performed By: #### 2 4321-2 ####[facility] ISABELLAIRIS [id number] [place] [address] [place] Calcium [Mass/Vol] 8.6 mg/dL Normal 8.5-10.2 [facility] Comment on above: Order Comment: Speci men Type: BLOOD SPECIMENOrdering Facility: [facility] Address: [address] [place] [address] Performed By: #### 2 4321-2 ####[facility]ITALIRIS [id number] [place] [address] [place] Chloride [Moles/Vol] 101 mmol/L Normal 97-105 [facility] Comment on above: Order Comment: Speci men Type: BLOOD SPECIMENOrdering Facility: [facility] Address: [address] [place] [address] Performed By: #### 2 4321-2 ####[facility] MILDREDGURDEEP [id number] [place] [address] [place] CO2 [Moles/Vol] 23 mmol/L Normal 22-30 [facility] Comment on above: Order Comment: Speci men Type: BLOOD SPECIMENOrdering Facility: [facility] Address: [address] [place], [place] [id number] Performed By: #### 2 4321-2 ####[facility]PITALMOOSELIA [id number] [place] [address] [place] Creatinine [Mass/Vol] 1.49 mg/dL High 0.73-1.22 [facility] Comment on above: Order Comment: Speci men Type: BLOOD SPECIMENOrdering Facility: [facility] Address: [address] [place], [place] [id number] Performed By: #### 2 4321-2 ####[facility] [id number] [place] [address] [place] ESTIMATED GLOMERULAR FILTRATION RATE 51 mL/min/1.73m??? Low >=60 [facility] Comment on above: Order Comment: Tori pappas Type: BLOOD SPECIMENOrdering Facility: [facility] Address: [address] [place] [address] Result Comment: Brandi mated Glomerular Filtration Rate (eGFR) is calculated using the 2020 CKD-EPI creatinine equation. This equation utilizes serum creatinine, sex, and age as parameters. The creatinine assay has traceable calibration to isotope dilution-mass spectrometry. Refer to KDIGO guidelines for clinical interpretation. In patients with unstable renal function, e.g. those with acute kidney injury, the eGFR may not accurately reflect actual GFR. Performed By: #### 2 4321-2 ####[facility] [id number] [place] [address] [place] Glucose [Mass/Vol] 149 mg/dL High 74-99 [facility] Comment on above: Order Comment: Tori pappas Type: BLOOD SPECIMENOrdering Facility: [facility] Address: [address] [place] [address] Result Comment: The [place] Diabetes Association (ADA) provides guidance for cutoff values for fasting glucose and random glucose. The ADA defines fasting as no caloric intake for at least 8 hours. Fasting plasma glucose results between 100 to 125 mg/dL indicate increased risk for diabetes (prediabetes). Fasting plasma glucose results greater than or equal to 126 mg/dL meet the criteria for diagnosis of diabetes. In the absence of unequivocal hyperglycemia, results should be confirmed by repeat testing. In a patient with classic symptoms of hyperglycemia or hyperglycemic crisis, random plasma glucose results greater than or equal to 200 mg/dL meet the criteria for diagnosis of diabetes. Reference: Standards of Medical Care in Diabetes 2016, [place] Diabetes Association. Diabetes Care. 2016.39(Suppl 1). Performed By: #### 2 4321-2 ####[facility] [id number] [place] [address] [place] Potassium [Moles/Vol] 3.8 mmol/L Normal 3.7-5.1 [facility] Comment on above: Order Comment: Speci men Type: BLOOD SPECIMENOrdering Facility: [facility] Address: [address] [place] [address] Performed By: #### 2 4321-2 ####[facility] MILLWMOOSELIA [id number] [place] [address] [place] Sodium [Moles/Vol] 134 mmol/L Low 136-144 [facility] Comment on above: Order Comment: Speci men Type: BLOOD SPECIMENOrdering Facility: [facility] Address: [address] [place] [address] Performed By: #### 2 4321-2 ####[facility]PITALIRIS [id number] [place] [address] [place] Urea nitrogen [Mass/Vol] 21 mg/dL Normal 9-24 [facility] Comment on above: Order Comment: Speci men Type: BLOOD SPECIMENOrdering Facility: [facility] Address: [address] [place] [address] Performed By: #### 2 4321-2 ####[facility]PITALLIJake [id number] [place] [address] [place] Anion gap [Moles/Vol] 10 mmol/L 9 - 18 mmol/L [facility] Calcium [Mass/Vol] 8.6 mg/dL 8.5 - 10. 2 mg/dL [facility] Chloride [Moles/Vol] 101 mmol/L 97 - 10 5 mmol/L [facility] CO2 [Moles/Vol] 23 mmol/L 22 - 30 mmol/L [facility] Creatinine [Mass/Vol] 1.49 mg/dL High 0.73 - 1.22 mg/dL [facility] Estimated Glomerular Filtration Rate 51 mL/min/1.73m Low >=60 mL/min/1.73m [facility] Glucose [Mass/Vol] 149 mg/dL High 74 - 99 mg/dL [facility] Potassium [Moles/Vol] 3.8 mmol/L 3.7 - 5.1 mmol/L [facility] Sodium [Moles/Vol] 134 mmol/L Low 136 - 144 mmol/L [facility] Urea nitrogen [Mass/Vol] 21 mg/dL 9 - 24 mg/dL [facility] CBC W Auto Differential pane l (Bld)on 07-14-2021 Basophils/100 WBC (Bld) 1.0 % Normal C [facility] Comment on above: Order Comment: Speci men Type: BLOOD SPECIMENOrdering Facility: [facility] Address: [address] [place] [address] Performed By: #### 5 7021-8 ####[facility] MILLTOWMOOSELIA [id number] [address] LABORATORYCLIA [id number] [address] Differential cell count method Nom (Bld) Manual Normal [facility] Comment on above: Order Comment: Speci men Type: BLOOD SPECIMENOrdering Facility: [facility] Address: [address] [place] [address] Performed By: #### 5 7021-8 ####[facility]ENTERWNCLIA [id number] [address] LABORATORYCLIA [id number] [address] STATES OF [facility] Eosinophils (Bld) [#/Vol] 0.14 10*3/uL Normal <0.46 [facility] Comment on above: Order Comment: Speci men Type: BLOOD SPECIMENOrdering Facility: [facility] Address: [address] [place] [address] Performed By: #### 5 7021-8 ####[facility]ENTERWNCLIA [id number] [address]BR[facility] LABORATORYCLIA [id number] [place] [address] [place] Eosinophils/100 WBC (Bld) 4.0 % Normal [facility] Comment on above: Order Comment: Speci men Type: BLOOD SPECIMENOrdering Facility: [facility] Address: [address] [place] [address] Performed By: #### 5 7021-8 ####[facility] MILLWKSLIA [id number] [address] LABORATORYCLIA [id number] [place] [address] [place] Erythrocyte distribution width (RBC) [Ratio] 13.6 % Normal 11.5-15.0 [facility] Comment on above: Order Comment: Speci men Type: BLOOD SPECIMENOrdering Facility: [facility] Address: [address] [place] [address] Performed By: #### 5 7021-8 ####[facility] CENTERWKSLIA [id number] [address] LABORATORYCLIA [id number] [place] [address] [place] Hematocrit (Bld) [Volume fraction] 35.1 % Low 39.0-51.0 [facility] Comment on above: Order Comment: Speci men Type: BLOOD SPECIMENOrdering Facility: [facility] Address: [address] [place] [address] Performed By: #### 5 7021-8 ####[facility]ITALNCLIA [id number] [address] LABORATORYCLIA [id number] [place] [address] [place] Hemoglobin (Bld) [Mass/Vol] 11.8 g/dL Low 13.0-17.0 [facility] Comment on above: Order Comment: Speci men Type: BLOOD SPECIMENOrdering Facility: [facility] Address: [address] [place] [address] Performed By: #### 5 7021-8 ####[facility] ANNLIA [id number] [address] LABORATORYCLIA [id number] [place] [address] [place] [facility] Lymphocytes (Bld) [#/Vol] 2.56 10*3/uL Normal 1.00-4.00 [facility] Comment on above: Order Comment: Speci men Type: BLOOD SPECIMENOrdering Facility: [facility] Address: [address] [place] [address] Performed By: #### 5 7021-8 ####[facility]OSPITALNCLIA [id number] [address] LABORATORYCLIA [id number] [address] STATES [facility] Lymphocytes/100 WBC (Bld) 74.0 % Normal [facility] Comment on above: Order Comment: Speci men Type: BLOOD SPECIMENOrdering Facility: [facility] Address: [address] [place] [address] Performed By: #### 5 7021-8 ####[facility]OSPITALMOOSELIA [id number] [address] LABORATORYCLIA [id number] [place] [address] [place] MCH (RBC) [Entitic mass] 32.6 pg Normal 26.0-34.0 [facility] Comment on above: Order Comment: Speci men Type: BLOOD SPECIMENOrdering Facility: [facility] Address: [address] [place] [address] Performed By: #### 5 7021-8 ####[facility] MILLTOWNCLIA [id number] [address] LABORATORYCLIA [id number] [address] MCHC (RBC) [Mass/Vol] 33.6 g/dL Normal 30.5-36.0 [facility] Comment on above: Order Comment: Speci men Type: BLOOD SPECIMENOrdering Facility: [facility] Address: [address] [place] [address] Performed By: #### 5 7021-8 ####[facility]ITALNCLIA [id number] [address] LABORATORYCLIA [id number] [address] STATES [facility] MCV (RBC) [Entitic vol] 97.0 fL Normal 80.0-100.0 [facility] Comment on above: Order Comment: Speci men Type: BLOOD SPECIMENOrdering Facility: [facility] Address: [address] [place] [address] Performed By: #### 5 7021-8 ####[facility]ENTERWNCLIA [id number] [address] LABORATORYCLIA [id number] [place] [address] [place] Neutrophils (Bld) [#/Vol] 0.73 10*3/uL Low 1.45-7.50 [facility] Comment on above: Order Comment: Speci men Type: BLOOD SPECIMENOrdering Facility: [facility] Address: [address] [place] [address] Performed By: #### 5 7021-8 ####[facility] MILLTOWNCLIA [id number] [address] LABORATORYCLIA [id number] [place] [address] [place] Neutrophils/100 WBC (Bld) 21.0 % Normal [facility] Comment on above: Order Comment: Speci men Type: BLOOD SPECIMENOrdering Facility: [facility] Address: [address] [place] [address] Performed By: #### 5 7021-8 ####[facility] MILLTOWNCLIA [id number] [address] LABORATORYCLIA [id number] [place] [address] [place] Nucleated RBC/100 WBC (Bld) [Ratio] 0.0 /100 WBC Normal [facility] Comment on above: Order Comment: Speci men Type: BLOOD SPECIMENOrdering Facility: [facility] Address: [address] [place] [address] Performed By: #### 5 7021-8 ####[facility] CENTERWKSLIA [id number] [address] LABORATORYCLIA [id number] [place] [address] [place] PLATELET ESTIMATE Decreased Normal [facility] Comment on above: Order Comment: Speci men Type: BLOOD SPECIMENOrdering Facility: [facility] Address: [address] [place] [address] Performed By: #### 5 7021-8 ####[facility]ENTERWNCLIA [id number] [address] LABORATORYCLIA [id number] [place] [address] [place] Platelet mean volume (Bld) [Entitic vol] 11.1 fL Normal 9.0-12.7 [facility] Comment on above: Order Comment: Speci men Type: BLOOD SPECIMENOrdering Facility: [facility] Address: [address] [address] Performed By: #### 5 7021-8 ####[facility]OSPITALMOOSELIA [id number] [address] LABORATORYCLIA [id number] [place] [address] [place] Platelets (Bld) [#/Vol] 102 10*3/uL Low 150-400 [facility] Comment on above: Order Comment: Speci men Type: BLOOD SPECIMENOrdering Facility: [facility] Address: [address] [place] [address] Result Comment: No c lot detected Performed By: #### 5 7021-8 ####[facility] [id number] [address] LABORATORYCLIA [id number] [place] [address] [place] RBC (Bld) [#/Vol] 3.62 10*6/uL Low 4.20-6.00 [facility] Comment on above: Order Comment: Speci men Type: BLOOD SPECIMENOrdering Facility: [facility] Address: [address] [place] [address] Performed By: #### 5 7021-8 ####[facility] [id number] [address] LABORATORYCLIA [id number] [place] [address] [place] RED CELL MORPH Reviewed. Unremarkable Normal [facility] Comment on above: Order Comment: Speci men Type: BLOOD SPECIMENOrdering Facility: [facility] Address: [address] [place] [address] Performed By: #### 5 7021-8 ####[facility]OSPITALLIA [id number] [address] LABORATORYCLIA [id number] [place] [address] [place] WAM - ABS BASO 0.03 k/uL Normal <0.11 [facility] Comment on above: Order Comment: Speci men Type: BLOOD SPECIMENOrdering Facility: [facility] Address: [address] [place] [address] Performed By: #### 5 7021-8 ####[facility] MIKAEL MILLTOWNCLIA [id number] [address] LABORATORYCLIA [id number] [place] [address] [place] WAM - ABS MONO 0.00 k/uL Normal <0.87 [facility] Comment on above: Order Comment: Speci men Type: BLOOD SPECIMENOrdering Facility: [facility] Address: [address] [place] [address] Performed By: #### 5 7021-8 ####[facility] MILLTOWNCLIA [id number] [address] LABORATORYCLIA [id number] [place] [address] [place] WAM - MONO% 0.0 % Normal [facility] Comment on above: Order Comment: Speci men Type: BLOOD SPECIMENOrdering Facility: [facility] Address: [address] [place] [address] Performed By: #### 5 7021-8 ####[facility] MILLTOWNCLIA [id number] [address] LABORATORYCLIA [id number] [place] [address] [place] WAM ABSOLUTE NRBC <0.01 Normal <0.01 [facility] Comment on above: Order Comment: Speci men Type: BLOOD SPECIMENOrdering Facility: [facility] Address: [address] [place] [address] Performed By: #### 5 7021-8 ####[facility] MIKAEL MASONNCLIA [id number] [address] LABORATORYCLIA [id number] [place] [address] [place] [facility] [place] WBC (Bld) [#/Vol] 3.46 10*3/uL Low 3.70-11.00 [facility] Comment on above: Order Comment: Speci men Type: BLOOD SPECIMENOrdering Facility: [facility] Address: [address] [place] [address] Performed By: #### 5 7021-8 ####[facility] MIKAEL AZUCENAWNCLIA [id number] [address] LABORATORYCLIA [id number] [address] CNOVSPon 07-14-2021 CNOVSP Visit (SP) Office (AMANDA) SHELBI GARCIA ([id number]) 1955 M Date Time Provider Department 07/14/21 9:10 AM JP DENIS During your visit today, we recorded the following information about you: Temperature Pulse Blood pressure Weight 97.2 degrees 65/minute 125/61 117.5 kg Jp Denis DO 07/14/2021 9:42 AM Signed Oncologic problem(s): 1) IgA lambda smoldering myeloma. HPI: The patient is a 66 yo male with a PMH significant for type 2 diabetes, CAD ([place] x3-most recent 2010; each treated with PCI/stent--5 stents total--most recent 2010), atrial fibrillation, CKD, RA, DVT (IVC) and sensory neuropathy. Patient was referred to a infant and toddler teacher for joint pain and elevated inflammatory markers. Patient began experiencing shoulder and hand pain around August 2020. At the time his pain began he had fallen and landed on his right shoulder and pain became significant while doing physical therapy and then worsened to occur in his left shoulder as well. When he had fallen on his shoulder, he was seen in the local ED and needed to have the shoulder relocated. Shortly thereafter he developed pain in the left hand mostly the PIP joints and wrist pain as well as significant swelling the symptoms were constant. He went to see his PCP who was on vacation so different physician had prescribed Plaquenil. He had been taking it for 3 months with no difference in symptoms. He had persistent significant right shoulder pain that radiated to the right upper arm he denied any notable swelling or redness in the arm. Left shoulder was unaffected. As per the rheumatologic work-up, patient had a CBC that was unremarkable. Creatinine was 1.6 mg/dL. Evidently he was found to have an IgA lambda monoclonal protein present. Total serum protein 7.7 g/dL. Albumin 4.6 g/dL. Alk phos 83 units/L. Serum creatinine 1.6 mg/dL when measured on 03/29/2021. CRP was 0.3 and ESR was 35 mm/h. He endorsed he got in touch with his frame tender office and was advised he could stop Coumadin. He continues on aspirin and Plavix. Presents for ongoing oncologic management. Interim history: Returns today to review the results of the bone marrow biopsy. He offers no complaints. 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 PMH, medications and allergies personally reviewed by me today. Any changes documented in appropriate section. ROS: Constitutional: Denies episodes of fever and night sweats. Not significantly fatigued. Normal appetite. Neuro: Denies CAMACHO, vertigo, dizziness and imbalance. HEENT: No recent change in voice, vision or hearing. Resp: Denies cough, wheeze and hemoptysis. Denies shortness of breath at rest. Denies DEL VALLE. CVS: Denies exertional chest pain, PND, orthopnea and LE edema. GI: Denies dysgeusia. Denies symptoms of stomatitis. Denies dysphagia and odynophagia. Denies reflux, n/v, change in bowel habits and abdominal pain. Denies chronic diarrhea. : Denies dysuria or gross hematuria. No symptoms of bladder outlet obstruction. Endo: Denies hot flashes. Denies polyuria and polydipsia. Denies heat and cold intolerance. Musculoskeletal: Pain limited to has fingers from RA. No other MS pain except when had right shoulder injury--resolved. Derm: Denies rash. Denies jaundice and diffuse pruritis. Heme: Denies unusual bleeding and unexplained bruising. Psych: Normal mood. PHYSICAL EXAM: Vitals: Blood pressure 125/61, pulse 65, temperature 36.2 ?C (97.2 ?F), weight 117.5 kg (259 lb), SpO2 96 %. Well-appearing and in no acute distress. EYES: Sclerae are anicteric bilaterally. LYMPHATIC: There is no palpable cervical, supraclavicular or axillaryl adenopathy. RESPIRATORY: Inspiratory breath sounds are of diminishedl intensity in all villalobos. CARDIOVASCULAR: Rhythm is regular. ABDOMEN: The abdomen is nondistended. No organomegaly. No tenderness. Extremities: Edema bilaterally. SKIN: No jaundice or rash. No petechiae. NEUROLOGIC: oracle bpm consultant II-XII are grossly intact. No focal motor weakness. DTRs are symmetric and normal. MUSCULOSKELETAL: Diffuse swelling of the fingers bilaterally. LABS: Component Latest Ref Rng AND Units 05/24/2021 WBC 3.70 - 11.00 k/uL 8.40 RBC 4.20 - 6.00 m/uL 4.56 Hemoglobin 13.0 - 17.0 g/dL 14.9 Hematocrit 39.0 - 51.0 % 46.0 MCV 80.0 - 100.0 fL 100.9 (H) MCH 26.0 - 34.0 pG 32.7 MCHC 30.5 - 36.0 g/dL 32.4 RDW-CV 11.5 - 15.0 % 13.7 Platelet Count 150 - 400 k/uL 229 MPV 9.0 - 12.7 fL 10.7 Neut% % 48.6 Abs Neut (ANC) 1.45 - 7.50 k/uL 4.06 Lymph% % 41.8 Abs Lymph 1.00 - 4.00 k/uL 3.51 Kendall% % 5.5 Abs Kendall <0.87 k/uL 0.46 Eosin% % 3.3 Abs Eosin <0.46 k/uL 0.28 Baso% % 0.8 Abs Baso <0.11 k/uL 0.07 Nucleated Reds 0 /100 WBC 0.0 Absolute nRBC <0.01 k/uL <0.01 Diff Type Auto Diff Pathologist Interpretatio (more content not included)... Normal [facility] CNPNon 07-14-2021 CNPN Telephone (HEMAWS) SHELBI GARCIA ([id number]) 1955 M Date Time Provider Department 07/14/21 JP DENIS During your visit today, we recorded the following information about you: Jp Denis DO 07/14/2021 8:49 AM Signed Orders filed. Jp Denis DO Allergies As of Date: 07/14/2021 Noted Allergy Reaction ZYBAN (BUPROPION (SMOKING DETER)) 01/28/2005 4 - Hives BENADRILINA (DIPHENHYDRAMINE HCL) 07/17/2013 4 - Hives Date Reviewed: 06/15/2021 Reviewed by: Jp Denis DO - Fully Assessed Reason for Visit: Orders [681] Primary Visit Diagnosis:Multiple myeloma not having achieved remission (HCC) [C90.00] Order(s):CBC + DIFF [SQCBCDIF] Order #: [id number] FUTURE BASIC METABOLIC PNL [SQBMP] Order #: [id number] FUTURE Prescriptions as of 07/14/2021 - apixaban (ELIQUIS) 5 mg tab(s) Take 5 mg by mouth twice daily. - clopidogrel (PLAVIX) 75 mg tablet Take 75 mg by mouth once daily. - empagliflozin (JARDIANCE) 10 mg tablet Take 10 mg by mouth twice daily. - triamterene-hydrochlor othiazide 37.5-25 mg per capsule Take 1 capsule by mouth once daily. - metoprolol succinate XL, long acting, (TOPROL XL) 50 mg 24 hr tablet Take 1 tablet by mouth once daily. - lisinopril 5 mg tablet Take 1 tablet by mouth twice daily. - amitriptyline 25 mg tablet Take 1 tablet by mouth daily at bedtime. - escitalopram (LEXAPRO) 20 mg tablet Take 1 tablet by mouth once daily. - lansoprazole (PREVACID) 30 mg capsule Take 1 capsule by mouth once daily. - rosuvastatin (CRESTOR) 40 mg tablet Take 1 tablet by mouth once daily. - B-Xcvwsmd-E7 Zymx-Exnfme-Z75 3-35-2 mg tab or Capsule Take 1 tablet by mouth twice daily. - vitamin b complex tab Take 1 tablet by mouth once daily. - COMPOUNDED PRESCRIPTION Take 1 mg by mouth as directed. coumadin 1,2.5, 3, 4, or 4.5 mg once daily as directed depending on INR results - ASPIRIN 81 MG TAB Take one (1) tablet daily . Problem List As Of Date 07/14/2021 Noted Resolved Benign neoplasm of colon [D12.6] 08/15/2013 Unspecified gastritis and gastroduodenitis with*08/15/2013 Monoclonal gammopathy [D47.2] 06/16/2021 Encounter Status:Closed by DORENE CHEN LPN on 07/14/21 [facility] SHELBI GARCIA ([id number]) 1955 M Date Time Provider Department 07/14/21 JP DENIS During your visit today, we recorded the following information about you: Jp Denis DO 07/14/2021 6:59 PM Signed Please let him know that the CBC from today unexpectedly showed that all his blood counts were low. This may be laboratory error so ask him to have a repeat CBC on or Monday. DO Nancy Fernandes LPN 07/15/2021 7:51 AM Signed Pt. Notified of results, will come in today for repeat CBC. Nancy Charity Quezada LPN Allergies As of Date: 07/14/2021 Noted Allergy Reaction ZYBAN (BUPROPION (SMOKING DETER)) 01/28/2005 4 - Hives BENADRILINA (DIPHENHYDRAMINE HCL) 07/17/2013 4 - Hives Date Reviewed: 07/14/2021 Reviewed by: Carl Laws Ma - Fully Assessed Reason for Visit: Results [95] Primary Visit Diagnosis:Smoldering myeloma [D47.2] Order(s):PATHOLOGIST INTERPRETATION WITH CBC AND DIFF [SQSTREV] Order #: [id number] FUTURE Prescriptions as of 07/15/2021 - apixaban (ELIQUIS) 5 mg tab(s) Take 5 mg by mouth twice daily. - clopidogrel (PLAVIX) 75 mg tablet Take 75 mg by mouth once daily. - empagliflozin (JARDIANCE) 10 mg tablet Take 10 mg by mouth twice daily. - triamterene-hydrochlor othiazide 37.5-25 mg per capsule Take 1 capsule by mouth once daily. - metoprolol succinate XL, long acting, (TOPROL XL) 50 mg 24 hr tablet Take 1 tablet by mouth once daily. - lisinopril 5 mg tablet Take 1 tablet by mouth twice daily. - amitriptyline 25 mg tablet Take 1 tablet by mouth daily at bedtime. - escitalopram (LEXAPRO) 20 mg tablet Take 1 tablet by mouth once daily. - lansoprazole (PREVACID) 30 mg capsule Take 1 capsule by mouth once daily. - rosuvastatin (CRESTOR) 40 mg tablet Take 1 tablet by mouth once daily. - B-Qpytnvv-T5 Ojhx-Aiacmh-E82 3-35-2 mg tab or Capsule Take 1 tablet by mouth twice daily. - vitamin b complex tab Take 1 tablet by mouth once daily. - COMPOUNDED PRESCRIPTION Take 1 mg by mouth as directed. coumadin 1,2.5, 3, 4, or 4.5 mg once daily as directed depending on INR results - ASPIRIN 81 MG TAB Take one (1) tablet daily . Problem List As Of Date 07/14/2021 Noted Resolved Benign neoplasm of colon [D12.6] 08/15/2013 Unspecified gastritis and gastroduodenitis with*08/15/2013 Smoldering myeloma [D47.2] 06/16/2021 Encounter Status:Closed by NANCY QUEZADA on 07/15/21 Normal [facility] PT panel Coag (PPP)on 2021 INR Coag (PPP) [Relative time] 1.0 {INR} Normal 0.9-1.3 [facility] Comment on above: Order Comment: Speclou pappas Type: BLOOD SPECIMENOrdering Facility: [facility] Address: [address] Result Comment: Radha min K Antagonist (VKA) Therapeutic Range: INR 2 to 3 (Target INR of 2.5) Note: For patients treated with VKA drugs, such as warfarin, the [place] [employer] 2012 Guideline recommends a therapeutic INR range of 2 to 3 (target INR of 2.5). This recommendation includes high-risk patients with antiphospholipid syndrome with previous arterial or venous thromboembolism, current-generation mechanical or bioprosthetic aortic heart valve replacement. Note: Patients with mechanical aortic valve replacement and additional risk factors for thromboembolic events (atrial fibrillation, previous thromboembolism, LV dysfunction, hypercoagulable conditions) or an older generation mechanical AVR (i.e., ball in-Cage) or any mechanical MVR should have a INR therapeutic range of 2.5 to 3.5 (target INR of 3). David GH, et al. Chest 2012, 141:7S-47S Janiya RA, et al. [facility] 2017, 70: 252-289 Performed By: #### 3 4528-0, 62279-9 ####[facility] LABCLIA [id number] [address] [place] PT Coag (PPP) [Time] 10.3 s Normal 9.7-13.0 [facility] Comment on above: Order Comment: Speclou pappas Type: BLOOD SPECIMENOrdering Facility: [facility] Address: [address] [id number] Performed By: #### 3 4528-0, 64036-7 ####[facility] LABCLIA [id number] [address] aPTT PPPon 07-14-2021 aPTT Coag (PPP) [Time] 25.6 s Normal 23.0-32.[address] [facility] Comment on above: Order Comment: Speci men Type: BLOOD SPECIMENOrdering Facility: [facility] Address: [address] [id number] Performed By: #### 3 4528-0, 15619-1 ####[facility] LABCLIA [id number] [address] CNPNon 06-24-2021 CNPN Telephone (HEMAWS) SHELBI GARCIA ([id number]) 1955 M Date Time Provider Department 06/24/21 JP DENIS During your visit today, we recorded the following information about you: Sangeetha Pickett 06/24/2021 2:45 PM Signed Patient is calling for his bone marrow biopsy results. Please advise the patient. Dorene Chen LPN 06/24/2021 3:00 PM Signed Bone marrow bx was done yesterday at [facility], called pt to let him know we wont have path results back for a week to 10 days. Pt voices understanding. Dorene Pickett 07/13/2021 10:21 AM Signed Patient called for his bone marrow biopsy results, can be reached at [phone] Thank you Freida Quezada LPN 07/13/2021 12:11 PM Signed results placed on physician desk. Nancy Quezada LPN Jp A Masci, DO 07/13/2021 12:58 PM Addendum I called and let him know the bone marrow biopsy revealed 11% plasma cells which does not meet criteria for multiple myeloma which is good. I would like an OV with CBC/BMP when able so I can go over everything in more detail. He is aware we will call him with an appointment. DO Cyndi Fernandes 07/13/2021 2:52 PM Signed SPOKE TO PT AND SCHEDULED. Cyndi Nam Allergies As of Date: 06/24/2021 Noted Allergy Reaction ZYBAN (BUPROPION (SMOKING DETER)) 01/28/2005 4 - Hives BENADRILINA (DIPHENHYDRAMINE HCL) 07/17/2013 4 - Hives Date Reviewed: 06/15/2021 Reviewed by: Jp Denis DO - Fully Assessed Reason for Visit: Results [95] Prescriptions as of 07/13/2021 - apixaban (ELIQUIS) 5 mg tab(s) Take 5 mg by mouth twice daily. - clopidogrel (PLAVIX) 75 mg tablet Take 75 mg by mouth once daily. - empagliflozin (JARDIANCE) 10 mg tablet Take 10 mg by mouth twice daily. - triamterene-hydrochlor othiazide 37.5-25 mg per capsule Take 1 capsule by mouth once daily. - metoprolol succinate XL, long acting, (TOPROL XL) 50 mg 24 hr tablet Take 1 tablet by mouth once daily. - lisinopril 5 mg tablet Take 1 tablet by mouth twice daily. - amitriptyline 25 mg tablet Take 1 tablet by mouth daily at bedtime. - escitalopram (LEXAPRO) 20 mg tablet Take 1 tablet by mouth once daily. - lansoprazole (PREVACID) 30 mg capsule Take 1 capsule by mouth once daily. - rosuvastatin (CRESTOR) 40 mg tablet Take 1 tablet by mouth once daily. - A-Qzgkusb-M3 Pijq-Dnydyq-T85 3-35-2 mg tab or Capsule Take 1 tablet by mouth twice daily. - vitamin b complex tab Take 1 tablet by mouth once daily. - COMPOUNDED PRESCRIPTION Take 1 mg by mouth as directed. coumadin 1,2.5, 3, 4, or 4.5 mg once daily as directed depending on INR results - ASPIRIN 81 MG TAB Take one (1) tablet daily . Problem List As Of Date 06/24/2021 Noted Resolved Benign neoplasm of colon [D12.6] 08/15/2013 Unspecified gastritis and gastroduodenitis with*08/15/2013 Monoclonal gammopathy [D47.2] 06/16/2021 Encounter Status:Closed by DORENE CHEN LPN on 06/24/21 Normal [facility] INR in Blood by Coagulation assayon 06-23-2021 INR Coag (Bld) [Relative time] 0.9 {INR} [facility] Work Phone: Laboratory - Coagulationon 0 06-23-2021 aPTT Coag (Bld) [Time] 27.9 s 24.1-36.2 [facility] Work Phone: PT Coag (PPP) [Time] 11.9 s 11.7-14.[address] [facility] [address] [facility] Work Phone: Platelets bldon 06-23-2021 Platelets (Bld) [#/Vol] 217 10*3/uL 150-450 [facility] Work Phone: CNPNon 06-22-2021 CNPN Telephone (HEMAWS) SHELBI GARCIA ([id number]) 1955 M Date Time Provider Department 06/22/21 JP DENIS During your visit today, we recorded the following information about you: Sangeetha Boudreaux Pss 06/22/2021 10:52 AM Signed Patient is calling to let Dr Denis know that PCP office ordered him Prednisone 5 mg 2 tablets a day for swelling in his fingers two weeks ago. Patients last dose was 06/19 he is scheduled at [facility] tomorrow for bone biopsy and wanted to make sure he was okay to proceed. Please advise the patient. Jp Denis DO 06/22/2021 11:15 AM Signed Yes, okay to still have bone marrow biopsy. DO Nancy Fernandes LPN 06/22/2021 11:24 AM Signed Pt. Notified, ok to have bone marrow bx tomorrow as scheduled. Nancy Quezada LPN Allergies As of Date: 06/22/2021 Noted Allergy Reaction ZYBAN (BUPROPION (SMOKING DETER)) 01/28/2005 4 - Hives BENADRILINA (DIPHENHYDRAMINE HCL) 07/17/2013 4 - Hives Date Reviewed: 06/15/2021 Reviewed by: Jp Denis DO - Fully Assessed Reason for Visit: Patient Update [1234] Prescriptions as of 06/22/2021 - apixaban (ELIQUIS) 5 mg tab(s) Take 5 mg by mouth twice daily. - clopidogrel (PLAVIX) 75 mg tablet Take 75 mg by mouth once daily. - empagliflozin (JARDIANCE) 10 mg tablet Take 10 mg by mouth twice daily. - triamterene-hydrochlor othiazide 37.5-25 mg per capsule Take 1 capsule by mouth once daily. - metoprolol succinate XL, long acting, (TOPROL XL) 50 mg 24 hr tablet Take 1 tablet by mouth once daily. - lisinopril 5 mg tablet Take 1 tablet by mouth twice daily. - amitriptyline 25 mg tablet Take 1 tablet by mouth daily at bedtime. - escitalopram (LEXAPRO) 20 mg tablet Take 1 tablet by mouth once daily. - lansoprazole (PREVACID) 30 mg capsule Take 1 capsule by mouth once daily. - rosuvastatin (CRESTOR) 40 mg tablet Take 1 tablet by mouth once daily. - V-Suoyxgw-F8 Emuc-Lvwxpq-A10 3-35-2 mg tab or Capsule Take 1 tablet by mouth twice daily. - vitamin b complex tab Take 1 tablet by mouth once daily. - COMPOUNDED PRESCRIPTION Take 1 mg by mouth as directed. coumadin 1,2.5, 3, 4, or 4.5 mg once daily as directed depending on INR results - ASPIRIN 81 MG TAB Take one (1) tablet daily . Problem List As Of Date 06/22/2021 Noted Resolved Benign neoplasm of colon [D12.6] 08/15/2013 Unspecified gastritis and gastroduodenitis with*08/15/2013 Monoclonal gammopathy [D47.2] 06/16/2021 Encounter Status:Closed by NANCY QUEZADA on 06/22/21 [facility] 06-16-2021 CNPN Telephone (HEMAWS) SHELBI GARCIA ([id number]) 1955 M Date Time Provider Department 06/16/21 JP DENIS During your visit today, we recorded the following information about you: Jp Denis DO 06/16/2021 5:34 AM Signed Can let him know that I spoke with Dr. Lakhani yesterday because Dr. Gupta is out of the office this week. He told me that the records indicated the patient was on Eliquis rather than Coumadin. Can we clarify with Shelbi if he had been taking Eliquis most recently or Coumadin? Additionally it will be okay for him to hold aspirin and Plavix for the upcoming bone marrow biopsy when instructed to do so by radiology at [facility]. DO Nancy Fernandes LPN 06/16/2021 8:39 AM Signed Spoke with pt. He is taking Eliquis 5 mg BID. ( added to medication list) Pt. Started holding the Eliquis, ASA, and Plavix yesterday as instructed by [facility] radiology dept. AIDAN Vergara DO 06/16/2021 8:43 AM Signed Thank you. He should call the cardiology office for refill on Plavix. DO Dorene Fernandes LPN 06/16/2021 9:05 AM Signed Yes. Allergies As of Date: 06/16/2021 Noted Allergy Reaction ZYBAN (BUPROPION (SMOKING DETER)) 01/28/2005 4 - Hives BENADRILINA (DIPHENHYDRAMINE HCL) 07/17/2013 4 - Hives Date Reviewed: 06/15/2021 Reviewed by: Jp Denis DO - Fully Assessed Reason for Visit: Follow Up [171] Prescriptions as of 06/16/2021 - apixaban (ELIQUIS) 5 mg tab(s) Take 5 mg by mouth twice daily. - clopidogrel (PLAVIX) 75 mg tablet Take 75 mg by mouth once daily. - empagliflozin (JARDIANCE) 10 mg tablet Take 10 mg by mouth twice daily. - triamterene-hydrochlor othiazide 37.5-25 mg per capsule Take 1 capsule by mouth once daily. - metoprolol succinate XL, long acting, (TOPROL XL) 50 mg 24 hr tablet Take 1 tablet by mouth once daily. - lisinopril 5 mg tablet Take 1 tablet by mouth twice daily. - amitriptyline 25 mg tablet Take 1 tablet by mouth daily at bedtime. - escitalopram (LEXAPRO) 20 mg tablet Take 1 tablet by mouth once daily. - lansoprazole (PREVACID) 30 mg capsule Take 1 capsule by mouth once daily. - rosuvastatin (CRESTOR) 40 mg tablet Take 1 tablet by mouth once daily. - V-Umprkhb-Y5 Bcwi-Cycafu-H38 3-35-2 mg tab or Capsule Take 1 tablet by mouth twice daily. - vitamin b complex tab Take 1 tablet by mouth once daily. - COMPOUNDED PRESCRIPTION Take 1 mg by mouth as directed. coumadin 1,2.5, 3, 4, or 4.5 mg once daily as directed depending on INR results - ASPIRIN 81 MG TAB Take one (1) tablet daily . Problem List As Of Date 06/16/2021 Noted Resolved Benign neoplasm of colon [D12.6] 08/15/2013 Unspecified gastritis and gastroduodenitis with*08/15/2013 Monoclonal gammopathy [D47.2] 06/16/2021 Encounter Status:Closed by DORENE CHEN LPN on 06/16/21 [facility] CNOVSPon 06-15-2021 CNOVSP Visit (SP) Office (HEMAWS) RADHASHELBI ([id number]) 1955 M Date Time Provider Department 06/15/21 10:10 AM JP DENIS During your visit today, we recorded the following information about you: Temperature Pulse Blood pressure Weight 97.2 degrees 59/minute 142/68 121.3 kg Jp Denis DO 06/16/2021 5:32 AM Signed Oncologic problem(s): 1) IgA lambda monoclonal gammopathy. HPI: The patient is a 66 yo male with a PMH significant for type 2 diabetes, CAD (TX x3-most recent 2010; each treated with PCI/stent--5 stents total--most recent 2010), atrial fibrillation, CKD, RA, DVT (IVC) and sensory neuropathy. Patient was referred to a infant and toddler teacher for joint pain and elevated inflammatory markers. Patient began experiencing shoulder and hand pain around August 2020. At the time his pain began he had fallen and landed on his right shoulder and pain became significant while doing physical therapy and then worsened to occur in his left shoulder as well. When he had fallen on his shoulder, he was seen in the local ED and needed to have the shoulder relocated. Shortly thereafter he developed pain in the left hand mostly the PIP joints and wrist pain as well as significant swelling the symptoms were constant. He went to see his PCP who was on vacation so different physician had prescribed Plaquenil. He had been taking it for 3 months with no difference in symptoms. He had persistent significant right shoulder pain that radiated to the right upper arm he denied any notable swelling or redness in the arm. Left shoulder was unaffected. As per the rheumatologic work-up, patient had a CBC that was unremarkable. Creatinine was 1.6 mg/dL. Evidently he was found to have an IgA lambda monoclonal protein present. Total serum protein 7.7 g/dL. Albumin 4.6 g/dL. Alk phos 83 units/L. Serum creatinine 1.6 mg/dL when measured on 03/29/2021. CRP was 0.3 and ESR was 35 mm/h. Presents for ongoing oncologic management. Interim history: He offers no complaints today. He endorses he got in touch with his frame tender office and was advised he could stop Coumadin. He continues on aspirin and Plavix. PMH, medications and allergies personally reviewed by me today. Any changes documented in appropriate section. ROS: Constitutional: Denies episodes of fever and night sweats. Not significantly fatigued. Normal appetite. Neuro: Denies CAMACHO, vertigo, dizziness and imbalance. Neuropathy in the feet that has been worsening for the last 3 years--stable now. HEENT: No recent change in voice, vision or hearing. Resp: Denies cough, wheeze and hemoptysis. Denies shortness of breath at rest. Denies DEL VALLE. CVS: Denies exertional chest pain, PND, orthopnea and LE edema. GI: Denies dysgeusia. Denies symptoms of stomatitis. Denies dysphagia and odynophagia. Denies reflux, n/v, change in bowel habits and abdominal pain. Denies chronic diarrhea. : Denies dysuria or gross hematuria. No symptoms of bladder outlet obstruction. Endo: Denies hot flashes. Denies polyuria and polydipsia. Denies heat and cold intolerance. Musculoskeletal: Pain limited to has fingers from RA. No other MS pain except when had right shoulder injury--resolved. Derm: Denies rash. Denies jaundice and diffuse pruritis. Heme: Denies unusual bleeding and unexplained bruising. Psych: Normal mood. PHYSICAL EXAM: Vitals: Blood pressure 142/68, pulse (!) 59, temperature 36.2 ?C (97.2 ?F), temperature source Temporal, weight 121.3 kg (267 lb 8 oz). Well-appearing and in no acute distress. EYES: Sclerae are anicteric bilaterally. LYMPHATIC: There is no palpable cervical, supraclavicular or axillaryl adenopathy. RESPIRATORY: Inspiratory breath sounds are of diminishedl intensity in all villalobos. CARDIOVASCULAR: Rhythm is regular. ABDOMEN: The abdomen is nondistended. No organomegaly. No tenderness. Extremities: Edema bilaterally. SKIN: No jaundice or rash. No petechiae. NEUROLOGIC: oracle bpm consultant II-XII are grossly intact. No focal motor weakness. DTRs are symmetric and normal. MUSCULOSKELETAL: Diffuse swelling of the fingers bilaterally. LABS: Component Latest Ref Rng AND Units 05/24/2021 WBC 3.70 - 11.00 k/uL 8.40 RBC 4.20 - 6.00 m/uL 4.56 Hemoglobin 13.0 - 17.0 g/dL 14.9 Hematocrit 39.0 - 51.0 % 46.0 MCV 80.0 - 100.0 fL 100.9 (H) MCH 26.0 - 34.0 pG 32.7 MCHC 30.5 - 36.0 g/dL 32.4 RDW-CV 11.5 - 15.0 % 13.7 Platelet Count 150 - 400 k/uL 229 MPV 9.0 - 12.7 fL 10.7 Neut% % 48.6 Abs Neut (ANC) 1.45 - 7.50 k/uL 4.06 Lymph% % 41.8 Abs Lymph 1.00 - 4.00 k/uL 3.51 Kendall% % 5.5 Abs Kendall <0.87 k/uL 0.46 Eosin% % 3.3 Abs Eosin <0.46 k/uL 0.28 Baso% % 0.8 Abs Baso <0.11 k/uL 0.07 Nucleated Reds 0 /100 WBC 0.0 Absolute nRBC <0.01 k/uL <0.01 Diff Type Auto Diff Pathologist Interpretation, CBCDIF SEE COMMENT Pathologist (DANIELLE) The Patholog (more content not included)... Normal [facility] CNPIzzy 06-15-2021 CNPN Telephone (AMANDA) SHELBI GARCIA ([id number]) 1955 M Date Time Provider Department 06/15/21 JP DENIS During your visit today, we recorded the following information about you: Dasia Quintero Pss 06/15/2021 10:41 AM Signed Please write order for CT guided bone marrow biopsy. Patient is scheduled at [facility] on 06/23 @ 9:00 AM. Patient aware to arrive by 8:00, NPO after midnight and that he will need a rear load truck driver, and someone to stay with him for 24 hours. Patient also aware to bring current med list to appt and to stay off plavix for 7 days prior to appt-today would be his last dose. Sara Roy Pss 06/15/2021 10:47 AM Signed Ashly from [facility] called requesting an order for procedure, HANDP within 30 days, order for labs - PT, PTT, INR and any imaging from patient. Please fax to [phone] Attn: Ashly. Ronel Rosen LPN 06/15/2021 11:00 AM Signed Please file orders and I will fax to [facility]. Ronel Denis DO 06/15/2021 1:19 PM Signed Thank you. Orders filed. DO Ronel Fernandes LPN 06/15/2021 2:04 PM Signed Awaiting completion of today's OV note before faxing all information to [facility]. Ronel Quezada LPN 06/16/2021 8:46 AM Signed Office notes attached and all information faxed as directed. Nanyc Quezada LPN Allergies As of Date: 06/15/2021 Noted Allergy Reaction ZYBAN (BUPROPION (SMOKING DETER)) 01/28/2005 4 - Hives BENADRILINA (DIPHENHYDRAMINE HCL) 07/17/2013 4 - Hives Date Reviewed: 06/15/2021 Reviewed by: Jp Denis DO - Fully Assessed Reason for Visit: Orders [681] Primary Visit Diagnosis:Multiple myeloma not having achieved remission (HCC) [C90.00] Order(s):IMAGING GUIDED BIOPSY BONE MARROW (HEMATOLOGY) [9934645] Order #: [id number] PROTHROMBIN TIME/PT [SQPT] Order #: [id number] FUTURE ACTIVATED PTT [SQPTT] Order #: [id number] FUTURE Prescriptions as of 06/16/2021 - apixaban (ELIQUIS) 5 mg tab(s) Take 5 mg by mouth twice daily. - clopidogrel (PLAVIX) 75 mg tablet Take 75 mg by mouth once daily. - empagliflozin (JARDIANCE) 10 mg tablet Take 10 mg by mouth twice daily. - triamterene-hydrochlor othiazide 37.5-25 mg per capsule Take 1 capsule by mouth once daily. - metoprolol succinate XL, long acting, (TOPROL XL) 50 mg 24 hr tablet Take 1 tablet by mouth once daily. - lisinopril 5 mg tablet Take 1 tablet by mouth twice daily. - amitriptyline 25 mg tablet Take 1 tablet by mouth daily at bedtime. - escitalopram (LEXAPRO) 20 mg tablet Take 1 tablet by mouth once daily. - lansoprazole (PREVACID) 30 mg capsule Take 1 capsule by mouth once daily. - rosuvastatin (CRESTOR) 40 mg tablet Take 1 tablet by mouth once daily. - W-Bkoxmwb-M8 Ejgi-Sgvmfp-Q96 3-35-2 mg tab or Capsule Take 1 tablet by mouth twice daily. - vitamin b complex tab Take 1 tablet by mouth once daily. - COMPOUNDED PRESCRIPTION Take 1 mg by mouth as directed. coumadin 1,2.5, 3, 4, or 4.5 mg once daily as directed depending on INR results - ASPIRIN 81 MG TAB Take one (1) tablet daily . Problem List As Of Date 06/15/2021 Noted Resolved Benign neoplasm of colon [D12.6] 08/15/2013 Unspecified gastritis and gastroduodenitis with*08/15/2013 Encounter Status:Closed by NANCY QUEZADA on 06/16/21 Normal [facility] CT WB SKULL TO KNEE WO IVCON on 06-10-2021 CT WB SKULL TO KNEE WO IVCON * * *Final Report* * * DATE OF EXAM: Jun 10 2021 2:31PM BCC 2096 - CT WB SKULL TO KNEE WO IVCON / PROCEDURE REASON: Multiple myeloma not having achieved remission (HCC) * * * * Physician Interpretation * * * * Examination: Whole-Body Low Dose CT Without Contrast History: IgA lambda monoclonal gammopathy Technique: Low dose whole body CT protocol was acquired in the axial plane without contrast from the vertex to the mid tibial diaphysis. MQ: CTWB_1A CT Dose-Length Product (DLP): [address] Dose Reduction Employed: Automated exposure control(AEC) and iterative recon Comparison: None RESULT: Please note that this low dose non-contrast examination with free breathing technique is limited for detection of some intrathoracic, solid abdominal organ, and vascular pathologies. Additionally, study is insensitive for detection of diffuse pattern of myelomatous marrow infiltration. OSSEOUS STRUCTURES: Counting reference: Lumbosacral junction. For the purposes of this report, L4-5 is considered the level of the iliac crest and assume there are 5 lumbar-type vertebrae. Anatomic variant: None. Calvarium: There is no well circumscribed lytic lesion measuring 5 mm or greater. Spine: There is no well circumscribed lytic lesion measuring 5 mm or greater. Vertebral body heights are preserved. There are minimal to mild degenerative changes, which are most pronounced at the lower cervical spine, lower thoracic spine, and at L5-S1. Upper extremities: There is no well circumscribed lytic lesion measuring 5 mm or greater. There are no suspicious findings noted in the intramedullary cavities. Ribs/Sternum: There is no well circumscribed lytic lesion measuring 5 mm or greater. Bony pelvis: : There is no well circumscribed lytic lesion measuring 5 mm or greater. Lower extremities: There is no well circumscribed lytic lesion measuring 5 mm or greater. There are no suspicious findings noted in the intramedullary cavities. Status post bilateral total knee arthroplasties without gross evidence for hardware complication. NON-OSSEOUS STRUCTURES Soft tissues: No soft tissue mass. Head/neck: Limited low dose evaluation of intra-cranial structures show No acute intracranial process. No pathologically enlarged cervical adenopathy. CHEST: Lines, tubes, and devices: None. Thoracic inlet, heart, and mediastinum: No lymphadenopathy in the axillary, mediastinal, or hilar regions within limitations of non-contrast exam. No gross cardiac enlargement or pericardial effusion. Chest wall is unremarkable. Coronary artery atherosclerotic calcifications are noted, although the study is not optimized for coronary assessment. There also appear to be coronary stents, also not well evaluated. Lung parenchyma and pleura: No focal consolidation. No suspicious pulmonary nodule is noted within limitations of reduced dose and free breathing technique. No pleural effusion. Central airways appear grossly patent without evidence for discrete endobronchial lesion. ABDOMEN/PELVIS: The unenhanced appearance of the liver, spleen, adrenal glands, and pancreas are unremarkable. No hydroureteronephrosis. No dilated bowel. Colonic diverticulosis without evidence for diverticulitis. No lymphadenopathy by size criteria. Scattered atherosclerotic calcifications without aneurysmal dilatation. Unremarkable unenhanced appearance of pelvic organs and urinary bladder. Mild-moderate atherosclerotic calcifications of the imaged aorta. Application Support Consultant (topogram) images: No additional findings. IMPRESSION: No CT evidence of multiple myeloma. Hvac Lead: HALIMA Transcribe Date/Time: Jun 10 2021 2:52P Dictated by : REGGIE NASH DO This examination was interpreted and the report reviewed and electronically signed by: REGGIE NASH DO on Jun 10 2021 3:09PM EST [id number] Normal [facility] CT WHOLE BODY SKULL TO KNEE WO IVCONon 06-10-[address] [facility] Monoclon Prot 24 Uron 2021 [facility] Interpretation SEE COMMENT Normal [facility] Comment on above: Result Comment: Atyp ical restricted bands are present in the IgA and lambda regions, with an additional atypical band in the lambda region. 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 Performed By: #### U 24MPA, [id number] ####[facility] [place], [place] [phone] [facility] Result M protein is present. Critically abnormal No M protein is identified. [facility] Comment on above: Performed By: #### U 24MPA, [id number] ####[facility] [address], [place] [phone] [facility] Staff Review Reviewed by Sirisha Wolfe MD, PhD. ([id number]) Normal [facility] Comment on above: Performed By: #### U 24MPA, [id number] ####[facility] [address], [place] [phone] Period / Volumeon 05-30-2021 Collection End Date Normal [facility] Comment on above: Performed By: #### U 24MPA, [id number] ####[facility], [place] [phone] Collection End Time 714 Normal [facility] Comment on above: Performed By: #### U 24MPA, [id number] ####[facility] [address], [place] [phone] Collection Start Date Normal [facility] Comment on above: Performed By: #### U 24MPA, [id number] ####[place] [address] [place], [place] [phone] Collection Start Time 914 Normal [facility] Comment on above: Performed By: #### U 24MPA, [id number] ####[place] [address] [place], [place] [phone] Period 22 hr Normal [facility] Comment on above: Performed By: #### U 24MPA, [id number] ####[address] [phone] Volume 2375 mL [facility] Comment on above: Performed By: #### U 24MPA, [id number] ####[address] [phone] Prot Elect Ur 24 hron 2021 Albumin, 24 hr 41.9 % Normal [facility] Comment on above: Performed By: #### U 24MPA, [id number] ####[address] [phone] Alpha 1 Globul, 24hr 4.3 % Normal [facility] Comment on above: Performed By: #### U 24MPA, [id number] ####[address] [phone] Alpha 2 Globul, 24hr 13.1 % Normal [facility] Comment on above: Performed By: #### U 24MPA, [id number] ####[address] [phone] Beta Globulin, 24hr 28.3 % Normal [facility] Comment on above: Performed By: #### U 24MPA, [id number] ####[place] [phone] Gamma Globulin, 24hr 12.3 % Normal [facility] Comment on above: Performed By: #### U 24MPA, [id number] ####[place] [address] [place], [place] [phone] Interpretation, 24hr An M protein is identified on protein electrophoresis. Normal [facility] Comment on above: Result Comment: See separate immunofixation report for characterization of the M protein. Performed By: #### U 24MPA, [id number] ####[place] [address] [place], [place] [phone] M Bruce Quant/24 Hr 0.04 gm/24 Hr High 0.[address] [facility] Comment on above: Performed By: #### U 24MPA, UEPG24 ####[address] [phone] Protein Ur Conc (UEPG24) 10 mg/dL Normal 0-20 [facility] Comment on above: Performed By: #### U 24MPA, UEPG24 ####[address] [phone] Protein Urine 24hr (UEPG24) 0.24 gm/24 Hr High <0.16 [facility] Comment on above: Performed By: #### U 24MPA, [id number] ####[address] [phone] Staff Review, 24hr Reviewed by Sirisha Wolfe MD, PhD. ([id number]) Normal [facility] Comment on above: Performed By: #### U 24MPA, UEPG24 ####[place] [address] [place], [place] [phone] B2 Microglobulinon 2 B2 Microglobulin 3.2 mg/L High <3.1 [facility] Comment on above: Performed By: #### B 2M, HREMOP, STREV, SERMPA, SEPG ####[facility] [place], [place] [phone] CNOVSPon 05-24-2021 CNOVSP Visit (SP) Office (HEMJESUS ALBERTO) SHELBI GARCIA ([id number]) 1955 M Date Time Provider Department 05/24/21 1:30 PM JP DENIS During your visit today, we recorded the following information about you: Temperature Pulse Blood pressure Weight 98.1 degrees 64/minute 144/66 120.4 kg Height 1.73 m Jp Denis DO 05/24/2021 1:57 PM Signed atient referred by Bossman for IgA lambda monoclonal gammopathy. The impression and plan will be communicated by way of the shared electronic record or faxed under separate cover letter. HPI: The patient is a 66 yo male with a PMH significant for type 2 diabetes, CAD (TX x3; each treated with PCI/stent--5 stents altogether), atrial fibrillation, CKD, RA and sensory neuropathy. Patient was referred to a infant and toddler teacher for joint pain and elevated inflammatory markers. Patient began experiencing shoulder and hand pain around August 2020. At the time his pain began he had fallen and landed on his right shoulder and pain became significant while doing physical therapy and then worsened to occur in his left shoulder as well. When he had fallen on his shoulder, he was seen in the local ED and needed to have the shoulder relocated. Shortly thereafter he developed pain in the left hand mostly the PIP joints and wrist pain as well as significant swelling the symptoms were constant. He went to see his PCP who was on vacation so different physician had prescribed Plaquenil. He has been taking it for 3 months with no difference in symptoms. He had persistent significant right shoulder pain that radiated to the right upper arm he denied any notable swelling or redness in the arm. Left shoulder was unaffected. As per the rheumatologic work-up, patient had a CBC that was unremarkable. Creatinine was 1.6 mg/dL. Evidently he was found to have an IgA lambda monoclonal protein present. Total serum protein 7.7 g/dL. Albumin 4.6 g/dL. Alk phos 83 units/L. Serum creatinine 1.6 mg/dL when measured on 03/29/2021. CRP was 0.3 and ESR was 35 mm/h. He offers no complaints. PMH, medications and allergies personally reviewed by me today. Any changes documented in appropriate section. ROS: Constitutional: Denies episodes of fever and night sweats. Not significantly fatigued. Normal appetite. Neuro: Denies CAMACHO, vertigo, dizziness and imbalance. Neuropathy in the feet that has been worsening for the last 3 years. HEENT: No recent change in voice, vision or hearing. Resp: Denies cough, wheeze and hemoptysis. Denies shortness of breath at rest. Denies DEL VALLE. CVS: Denies exertional chest pain, PND, orthopnea and LE edema. GI: Denies dysgeusia. Denies symptoms of stomatitis. Denies dysphagia and odynophagia. Denies reflux, n/v, change in bowel habits and abdominal pain. Denies chronic diarrhea. : Denies dysuria or gross hematuria. No symptoms of bladder outlet obstruction. Endo: Denies hot flashes. Denies polyuria and polydipsia. Denies heat and cold intolerance. Musculoskeletal: Pain limited to has fingers from RA. No other MS pain except when had right shoulder injury--resolved. Derm: Denies rash. Denies jaundice and diffuse pruritis. Heme: Denies unusual bleeding and unexplained bruising. Psych: Normal mood. PHYSICAL EXAM: Vitals: Blood pressure 144/66, pulse 64, temperature 36.7 ?C (98.1 ?F), height 173 cm (5' 8.11), weight 120.4 kg (265 lb 8 oz), SpO2 96 %. Well-appearing and in no acute distress. EYES: Sclerae are anicteric bilaterally. LYMPHATIC: There is no palpable cervical, supraclavicular or axillaryl adenopathy. RESPIRATORY: Inspiratory breath sounds are of diminishedl intensity in all villalobos. CARDIOVASCULAR: Rhythm is regular. ABDOMEN: The abdomen is nondistended. No organomegaly. No tenderness. Extremities: Edema bilaterally. SKIN: No jaundice or rash. No petechiae. NEUROLOGIC: oracle bpm consultant II-XII are grossly intact. No focal motor weakness. DTRs are symmetric and normal. MUSCULOSKELETAL: Diffuse swelling of the fingers bilaterally. 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 I cannot find record of electrophoresis so level of protein not quantifiable. He has chronic kidney disease with serum creatinine ranging from 1.6 to 2.09 mg/dL back to May 2013. He does not have anemia or hypercalcemia. -I discussed with him the spectrum of plasma cell dyscrasias. He needs repeat work-up and quantification of the IgM lambda monoclonal protein. He has no convincing evidence of amyloidosis with the exception of slowly progressive neuropathy which could be attributed to his diabetes. Nonetheless he will need bone marrow evaluation as part of the work-up but righ (more content not included)... Normal [facility] Comp Metabolic Panelon 05-24 Albumin [Mass/Vol] 4.6 g/dL Normal 3.9-4.9 [facility] ALP [Catalytic activity/Vol] 89 U/L Normal 38-113 [facility] ALT [Catalytic activity/Vol] 20 U/L Normal 10-54 [facility] Anion gap [Moles/Vol] 10 mmol/L Normal 9-18 [facility] AST [Catalytic activity/Vol] 16 U/L Normal 14-40 [facility] Bilirubin [Mass/Vol] 0.6 mg/dL Normal 0.2-1.3 [facility] Calcium [Mass/Vol] 9.2 mg/dL Normal 8.5-10.2 [facility] Chloride [Moles/Vol] 104 mmol/L Normal 97-105 [facility] CO2 [Moles/Vol] 26 mmol/L Normal 22-30 [facility] Creatinine [Mass/Vol] 1.34 mg/dL High 0.73-1.22 [facility] eGFR- Amer. >60 Normal [facility] eGFR-All Other Races 53 . Normal [facility] Comment on above: Result Comment: eGFR (Estimated GFR) Units of measure: mL/min/1.73 meters squared eGFR is derived from the reexpressed MDRD Study equation using the following parameters: serum creatinine, age, gender and race. The creatinine assay has been calibrated to be traceable to IDMS. An eGFR <60 mL/min/1.73m2 for >3 months is consistent with chronic kidney disease. Refer to KDOQI guidelines for clinical interpretation. In patients with unstable renal function, e.g. those with acute kidney injury, the eGFR may not accurately reflect actual GFR. Note: On 06/05/2021, the eGFR calculation will be updated to the NKF-ASN Task Force recommended 2020 CKD-EPI creatinine equation which does not include a race variable. For more information or to access a 2020 CKD-EPI calculator, visit the National Kidney Foundation website at kidney.org/professionals/kdoqi/gfr_calculator. Glucose [Mass/Vol] 116 mg/dL High 74-99 [facility] Comment on above: Result Comment: The [place] Diabetes Association (ADA) provides guidance for cutoff values for fasting glucose and random glucose. The ADA defines fasting as no caloric intake for at least 8 hours. Fasting plasma glucose results between 100 to 125 mg/dL indicate increased risk for diabetes (prediabetes). Fasting plasma glucose results greater than or equal to 126 mg/dL meet the criteria for diagnosis of diabetes. In the absence of unequivocal hyperglycemia, results should be confirmed by repeat testing. In a patient with classic symptoms of hyperglycemia or hyperglycemic crisis, random plasma glucose results greater than or equal to 200 mg/dL meet the criteria for diagnosis of diabetes. Reference: Standards of Medical Care in Diabetes 2016, [place] Diabetes Association. Diabetes Care. 2016.39(Suppl 1). Potassium [Moles/Vol] 4.1 mmol/L Normal 3.7-5.1 [facility] Protein [Mass/Vol] 7.5 g/dL Normal 6.3-8.0 [facility] Sodium [Moles/Vol] 140 mmol/L Normal 136-144 [facility] Urea nitrogen [Mass/Vol] 20 mg/dL Normal 9-24 [facility] Hepatitis Remote Panelon HBsAg Negative Normal Negative [facility] Comment on above: Performed By: #### B 2M, HREMOP, STREV, SERMPA, SEPG ####[facility] [place] [phone] Hep B Core Ab,Total Negative Normal Negative [facility] Comment on above: Performed By: #### B 2M, HREMOP, STREV, SERMPA, SEPG ####[facility] [place] [phone] Hepatitis C Ab IA Negative Normal Negative [facility] Comment on above: Performed By: #### B 2M, HREMOP, STREV, SERMPA, SEPG ####[facility] [place] [phone] HepB Surface Ab,Qual Negative Normal Negative [facility] Comment on above: Result Comment: NEGA TIVE Performed By: #### B 2M, HREMOP, STREV, SERMPA, SEPG ####[facility] [place] [phone] LDon 05-24-2021 LD 203 U/L Normal 135-225 [facility] Comment on above: Result Comment: Hemo lysis present. The origin of the hemolysis, in vitro versus an in vivo hemolytic process, cannot be distinguished via this assay alone. In vitro hemolysis may lead to non-physiological (spurious) elevation in lactate dehydrogenase (LDH) results. The result should be interpreted in context of the clinical setting and other test results. Suggest reorder as clinically indicated. Monclnl Protein, Seron 05-24 K/L Ratio, Serum 0.23 Low 0.26-1.65 [facility] Comment on above: Performed By: #### B 2M, HREMOP, STREV, SERMPA, SEPG ####[facility] [place] [phone] [place], Free, Serum 14.2 mg/L Normal 3.30-19.40 [facility] Comment on above: Result Comment: Test performed by an immunoturbidimetric assay on Optilite instrument from [facility]. Immunoglobulin free light chain assay results should be interpreted in conjunction with other tests and in correlation with clinical picture. Performed By: #### B 2M, HREMOP, STREV, SERMPA, SEPG ####[facility] [place] [phone] Lambda, Free, Serum 61.1 mg/L High 5.7-26.3 [facility] Comment on above: Result Comment: Test performed by an immunoturbidimetric assay on Optilite instrument from [facility]. Immunoglobulin free light chain assay results should be interpreted in conjunction with other tests and in correlation with clinical picture. Performed By: #### B 2M, HREMOP, STREV, SERMPA, SEPG ####[address] [place] [phone] MPA Interpretation SEE COMMENT Normal [facility] Comment on above: Result Comment: Atyp ical restricted bands are present in the IgA and lambda regions. Consistent with IgA lambda monoclonal gammopathy. Performed By: #### B 2M, HREMOP, STREV, SERMPA, SEPG ####[facility] [place] [phone] MPA Result M protein is present. Critically abnormal No M protein is identified. [facility] Comment on above: Performed By: #### B 2M, HREMOP, STREV, SERMPA, SEPG ####[facility] [address] AveCRober[address] [place] [phone] MPA Serum IgA 610 mg/dL High 70-400 [facility] Comment on above: Performed By: #### B 2M, HREMOP, STREV, SERMPA, SEPG ####[facility] [place] [phone] MPA Serum IgG 638 mg/dL Low 700-1600 [facility] Comment on above: Performed By: #### B 2M, HREMOP, STREV, SERMPA, SEPG ####[facility] [address] AveClevelandMary [place] [phone] MPA Serum IgM 66 mg/dL Normal 40-230 [facility] Comment on above: Performed By: #### B 2M, HREMOP, STREV, SERMPA, SEPG ####[facility]ClevelRe[address] [place] [phone] Staff Review Reviewed by Dasia Kessler MD ([id number]) Normal [facility] Comment on above: Performed By: #### B 2M, HREMOP, STREV, SERMPA, SEPG ####[place] [address]ClevelRe[address] [place] [phone] Path Interp w CBCDIFon 05-24 Abs Baso 0.07 k/uL Normal <0.11 [facility] Comment on above: Performed By: #### B 2M, HREMOP, STREV, SERMPA, SEPG ####[place] [address]ClevelRe[address] [place] [phone] Abs Kendall 0.46 k/uL Normal <0.87 [facility] Comment on above: Performed By: #### B 2M, HREMOP, STREV, SERMPA, SEPG ####[facility]ClevelandMary [place] [phone] Abs Neut 4.06 k/uL Normal 1.45-7.50 [facility] Comment on above: Performed By: #### B 2M, HREMOP, STREV, SERMPA, SEPG ####[facility]ClevelRe[address] [place] [phone] Absolute nRBC <0.01 Normal <0.01 [facility] Comment on above: Performed By: #### B 2M, HREMOP, STREV, SERMPA, SEPG ####[facility] [address] AveClevelRebecca [place] [phone] Basophils/100 WBC (Bld) 0.8 % Normal C [facility] Comment on above: Performed By: #### B 2M, HREMOP, STREV, SERMPA, SEPG ####[facility]ClevelRe[address] [place] [phone] DTYPE Auto Diff Normal [facility] Comment on above: Performed By: #### B 2M, HREMOP, STREV, SERMPA, SEPG ####[place] [address]ClevelRe[address] [place] [phone] Eosinophils (Bld) [#/Vol] 0.28 10*3/uL Normal <0.46 [facility] Comment on above: Performed By: #### B 2M, HREMOP, STREV, SERMPA, SEPG ####[place] [address]ClevelRe[address] [place] [phone] Eosinophils/100 WBC (Bld) 3.3 % Normal [facility] Comment on above: Performed By: #### B 2M, HREMOP, STREV, SERMPA, SEPG ####[place] [address] [place] [phone] Erythrocyte distribution width (RBC) [Ratio] 13.7 % Normal 11.5-15.0 [facility] Comment on above: Performed By: #### B 2M, HREMOP, STREV, SERMPA, SEPG ####[facility]ClevelRe[address] [place] [phone] Hematocrit (Bld) [Volume fraction] 46.0 % Normal 39.0-51.0 [facility] Comment on above: Performed By: #### B 2M, HREMOP, STREV, SERMPA, SEPG ####[facility]levelRe[address] [place] [phone] Hemoglobin (Bld) [Mass/Vol] 14.9 g/dL Normal 13.0-17.0 [facility] Comment on above: Performed By: #### B 2M, HREMOP, STREV, SERMPA, SEPG ####[place] [address] [place] [phone] Lymphocytes (Bld) [#/Vol] 3.51 10*3/uL Normal 1.00-4.00 [facility] Comment on above: Performed By: #### B 2M, HREMOP, STREV, SERMPA, SEPG ####[place] [address] [place] [phone] Lymphocytes/100 WBC (Bld) 41.8 % Normal [facility] Comment on above: Performed By: #### B 2M, HREMOP, STREV, SERMPA, SEPG ####[place] [address] [phone] MCH 32.7 pG Normal 26.0-34.0 [facility] Comment on above: Performed By: #### B 2M, HREMOP, STREV, SERMPA, SEPG ####[place] [address] [phone] MCHC (RBC) [Mass/Vol] 32.4 g/dL Normal 30.5-36.0 [facility] Comment on above: Performed By: #### B 2M, HREMOP, STREV, SERMPA, SEPG ####[place] [address] [place] [phone] MCV (RBC) [Entitic vol] 100.9 fL High 80.0-100.0 C [facility] Comment on above: Performed By: #### B 2M, HREMOP, STREV, SERMPA, SEPG ####[place] [address] [place] [phone] Monocytes/100 WBC (Bld) 5.5 % Normal C [facility] Comment on above: Performed By: #### B 2M, HREMOP, STREV, SERMPA, SEPG ####[facility] [place] [phone] Neutrophils/100 WBC (Bld) 48.6 % Normal [facility] Comment on above: Performed By: #### B 2M, HREMOP, STREV, SERMPA, SEPG ####[facility] [phone] NRBCs 0.0 /100 WBC Normal 0 [facility] Comment on above: Performed By: #### B 2M, HREMOP, STREV, SERMPA, SEPG ####[place] [address] [address] [place] [phone] Pathologist Interp SEE COMMENT Normal [facility] Comment on above: Result Comment: The Pathologist Interpretation on this sample was cancelled because the hematology analyzer did not flag any parameters as requiring manual review. If there is a specific clinical concern for which you would like a pathologist to review the blood smear, please call Lab Client Services within 28 days. Account Credited Performed By: #### B 2M, HREMOP, STREV, SERMPA, SEPG ####[place] [address] [address] [place] [phone] Pathologist: The Pathologist Interpretation on this sample was cancelled because the hematology analyzer did not flag any parameters as requiring manual review. If there is a specific clinical concern for which you would like a pathologist to review the blood smear, please call Lab Client Services within 28 days. Normal [facility] Comment on above: Result Comment: Acco unt Credited Performed By: #### B 2M, HREMOP, STREV, SERMPA, SEPG ####[place] [address] [address] [place] [phone] Platelet mean volume (Bld) [Entitic vol] 10.7 fL Normal 9.0-12.7 [facility] Comment on above: Performed By: #### B 2M, HREMOP, STREV, SERMPA, SEPG ####[place] [id number] [place] [phone] Platelets (Bld) [#/Vol] 229 10*3/uL Normal 150-400 [facility] Comment on above: Performed By: #### B 2M, HREMOP, STREV, SERMPA, SEPG ####[place] [address] [address], [place] [phone] RBC (Bld) [#/Vol] 4.56 10*6/uL Normal 4.20-6.00 [facility] Comment on above: Performed By: #### B 2M, HREMOP, STREV, SERMPA, SEPG ####[address] [place] [phone] WBC (Bld) [#/Vol] 8.40 10*3/uL Normal 3.70-11.00 [facility] Comment on above: Performed By: #### B 2M, HREMOP, STREV, SERMPA, SEPG ####[place] [address] [address], [place] [phone] Protein Electrophor.on 05-24 Albumin [Mass/Vol] 4.14 g/dL Normal 3.37-4.23 [facility] Comment on above: Performed By: #### B 2M, HREMOP, STREV, SERMPA, SEPG ####[address] [phone] Alpha 1 Globulin 0.26 gm/dL Normal 0.18-0.31 [facility] Comment on above: Performed By: #### B 2M, HREMOP, STREV, SERMPA, SEPG ####[place] [address] [address], [place] [phone] Alpha 2 Globulin 0.72 gm/dL Normal 0.52-0.97 [facility] Comment on above: Performed By: #### B 2M, HREMOP, STREV, SERMPA, SEPG ####[place] [address] [address], [place] [phone] Beta Globulin 0.97 gm/dL Normal 0.84-1.36 [facility] Comment on above: Performed By: #### B 2M, HREMOP, STREV, SERMPA, SEPG ####[facility], [place] [phone] Gamma Globulin 1.11 gm/dL Normal 0.70-1.44 [facility] Comment on above: Performed By: #### B 2M, HREMOP, STREV, SERMPA, SEPG ####[facility], [place] [phone] Interpretation SEE COMMENT Normal [facility] Comment on above: Result Comment: An M protein is identified on protein electrophoresis. See separate immunofixation report for characterization of the M protein. Performed By: #### B 2M, HREMOP, STREV, SERMPA, SEPG ####[facility], [place] [phone] M Protein Location Gamma fraction Normal [facility] Comment on above: Performed By: #### B 2M, HREMOP, STREV, SERMPA, SEPG ####[facility], [place] [phone] M Bruce Concentratn 0.44 gm/dL High 0.00 [facility] Comment on above: Performed By: #### B 2M, HREMOP, STREV, SERMPA, SEPG ####[facility], [place] [phone] Protein [Mass/Vol] 7.2 g/dL Normal 6.3-8.0 [facility] Comment on above: Performed By: #### B 2M, HREMOP, STREV, SERMPA, SEPG ####[facility], [place] [phone] SPE Staff Review Reviewed by Dasia Kessler MD ([id number]) Normal [facility] Comment on above: Performed By: #### B 2M, HREMOP, STREV, SERMPA, SEPG ####[facility] [address] [place], [place] [phone] OCT MACULA CIRRUS OU (BOTH E YES) [facility] Vital Signs Date Time Vital Sign Value Performing Clinician Faci lity 03-14-2023 08:08-0500 Body height 170.[address] Fatoumata Red Work Phone: [facility] 03-14-2023 08:08-0500 Body weight 111.[address] Fatoumata Red Work Phone: [facility] 03-13-2023 11:44-0500 Body mass index (BMI) [Ratio] 38.5 kg/m2 Dr. Fatoumata Red Work Phone: [facility] 01-19-2023 11:05-0400 Body height 170.[address] Fatoumata Red Work Phone: [facility] 01-19-2023 11:05-0400 Body mass index (BMI) [Ratio] 38.5 kg/m2 Dr. Fatoumata Red Work Phone: [facility] 01-19-2023 11:05-0400 Body weight 111.[address] Fatoumata Red Work Phone: [facility] 01-19-2023 11:05-0400 Diastolic blood pressure 74 mm[Hg] Dr. Fatoumata Red Work Phone: [facility] 01-19-2023 11:05-0400 Heart rate 58 /min Dr. Fatoumata Red Work Phone: [facility] 01-19-2023 11:05-0400 Respiratory rate 18 /min Dr. Fatoumata Red Work Phone: [facility] 01-19-2023 11:05-0400 SaO2% (BldA) [Mass fraction] 95 % Dr. Fatoumata Red Work Phone: [facility] 01-19-2023 11:05-0400 Systolic blood pressure 129 mm[Hg] Dr. Fatoumata Red Work Phone: [facility] 07-14-2021 09:15-0400 Body temperature 97.2 [degF] Jp Denis DO Work Phone: [facility] 07-14-2021 09:15-0400 Body weight 117.48 kg Jp Molinai DO Work Phone: [facility] 07-14-2021 09:15-0400 Diastolic blood pressure 61 mm[Hg] Jp Molinai DO Work Phone: [facility] 07-14-2021 09:15-0400 Heart rate 65 /min Jp Molinai Rollad Work Phone: [facility] 07-14-2021 09:15-0400 SaO2% (BldA) [Mass fraction] 96 % Jp [employer] Work Phone: [facility] 07-14-2021 09:15-0400 Systolic blood pressure 125 mm[Hg] Jp Molinai DO Work Phone: [facility] 06-23-2021 10:49-0400 Diastolic blood pressure 51 mm[Hg] [facility] Work Phone: 06-23-2021 10:49-0400 Heart rate 59 /min [facility] Work Phone: 06-23-2021 10:49-0400 Respiratory rate 18 /min [facility] Work Phone: 06-23-2021 10:49-0400 SaO2% (BldA) [Mass fraction] 97 % [facility] Work Phone: 06-23-2021 10:49-0400 Systolic blood pressure 124 mm[Hg] [facility] Work Phone: 06-23-2021 08:07-0400 Body height 170.18 cm [facility] Work Phone: 06-23-2021 08:07-0400 Body mass index (BMI) [Ratio] 41.6 kg/m2 [facility] Work Phone: 06-23-2021 08:07-0400 Body temperature 98 [degF] [facility] Work Phone: 06-23-2021 08:07-0400 Body weight 120.65 kg [facility] Work Phone: Encounters Encounter Date Encounter Type Care Provider Facility Start: 11-28-2024 End: 11-28-[address] Fatoumata Red MD Work Phone: -Laboratory Start: 11-28-2024 End: 11-28-[address] Fatoumata Red MD -Laboratory Work Phone: Start: 11-28-2024 End: 11-28-2024 ambulatory [facility] Facility:[facility] Start: 06-19-2024 End: 06-19-2024 ambulatory [facility] Facility:[facility] Start: 01-18-2024 End: 01-18-2024 ambulatory [facility] Facility:[facility] Start: 01-01-2024 ambulatory [facility] Facility: [facility] Start: 03-14-2023 End: 03-14-2023 Admission to same day surgery center Dr. Fatoumata Red Work Phone: [facility]-Inspector [employer]/Special Procedures Work Phone: Start: 03-14-2023 End: 03-14-[address] Fatoumata Red Work Phone: [facility] Work Phone: Start: 02-20-2023 Non-patient / Non-visit Dr. Dario Red Work Phone: [facility] Work Phone: Start: 02-19-2023 Non-patient / Non-visit Dr. Dario Red Work Phone: [facility] Start: 02-15-2023 End: 02-15-[address] Fatoumata Red Work Phone: [facility] Work Phone: Start: 02-15-2023 End: 02-15-[address] [facility] Work [facility]: Start: 02-15-2023 Non-patient / Non-visit Dr. Dario Red Work Phone: [facility] Start: 02-01-2023 End: 02-01-[address] Fatoumata Red Work Phone: [facility] Work Phone: Start: 02-01-2023 End: 02-01-[address] [facility] Start: 01-27-2023 End: 01-27-[address] Fatoumata Red Work Phone: [facility] Work Phone: Start: 01-19-2023 End: 01-19-[address] Fatoumata Red Work Phone: [facility] Work Phone: Start: 01-13-2023 End: 01-13-2023 ambulatory [facility] Work Phone: Start: 01-13-2023 End: 01-13-2023 [facility] Start: 09-18-2021 End: 09-18-2021 Patient encounter procedure Elio Bach MD Work Phone: Ophthalmology Comment on above: Type 2 diabetes bety itus without retinopathy (HCC) (Primary Dx); Pseudophakia of both eyes; Hx of LASIK; Essential hypertension; Hypercholesteremia Start: 09-10-2021 End: 09-10-2021 Patient encounter procedure [facility]-Laboratory, Phy Office 3rd Flr Start: 09-02-2021 End: 09-02-2021 [facility] Start: 09-01-2021 Telephone encounter Jp cannon DO Work Phone: Hematology/Oncology Comment on above: Information Start: 07-19-2021 Telephone encounter Jp cannon DO Work Phone: Hematology/Oncology Comment on above: Results Start: 07-15-2021 End: 07-15-2021 Patient encounter procedure [facility]-Laboratory Start: 07-14-2021 Telephone encounter Jp cannon DO Work Phone: Hematology/Oncology Comment on above: Orders Results Start: 07-14-2021 End: 07-14-2021 ambulatory Jp Denis DO Work Phone: Hematology/Oncology Comment on above: Smoldering myeloma ( Primary Dx) Start: 07-14-2021 End: 07-14-2021 Patient encounter procedure Jp Denis DO Work Phone: [facility] Start: 06-23-2021 End: 06-23-2021 Patient encounter procedure [facility]-Cat Scan, [facility] Start: 06-10-2021 End: 06-10-2021 Subsequent hospital visit by physician [facility] [place] ([facility]) Work Phone: Radiology [facility] [place] Comment on above: Multiple myeloma not having achieved remission (HCC) [C90.00] Procedures Date Procedure Procedure Detail Performing Clinician Start: 03-06-2023 Plain chest X-ray Dr. Fatoumata Red Work Phone: Start: 02-15-2023 Cardiovascular stress test using pharmacologic stress agent Dr. Fatoumata Red Work Phone: Start: 01-27-2023 Radionuclide whole body bone study Dr. Fatoumata Red Work Phone: Start: 09-18-2021 Computerized ophthalmic imaging retina Elio Bach MD Work Phone: Start: 09-10-2021 US urinary tract Start: 07-14-2021 Adult depression screening assessment Jp Denis DO Work Phone: Start: 06-23-2021 Biopsy/Inj or Needle Placement Start: 06-10-2021 Unlisted computed tomography procedure Jp Denis DO Work Phone: Start: 08-06-2013 Colonoscopy Jp Tracylou BOSS Work Phone: Start: 09-27-2004 Lipid 1996 panel - Serum or Plasma Ct (I-[facility]) Work Phone: History of laser ass isted in situ keratomileusis Hx of LASIK Elio Bach MD Work Phone: Laboratory test resu lt abnormal Abnormal laboratory test Plan of Treatment Date Care Activity Detail Author Start: 12-23-2024 ambulatory Ambulatory Facility:[facility] Start: 07-14-2024 DIABETES SCREEN DIABETES SCREEN [facility] Start: 07-14-2024 Diabetes Screening Diabetes Screening [facility] Start: 03-14-2023 Patient discharge [facility] Start: 12-09-2022 Covid-19 Vaccine ( season) Covid-19 Vaccine ( season) [facility] Start: 12-09-2022 Influenza [facility] Start: 07-14-2022 Adult depression screening assessment DEPRESSION SCREENING [facility] Start: 04-10-2022 Advance Directive Discussion Advance Directive Discussion [facility] Start: 04-10-2022 Depression Assessment Depression Assessment [facility] Start: 12-09-2021 Influenza vaccination INFLUENZA (Season Ended) [facility] Start: 06-23-2021 Diagnostic bone marrow biopsies & aspirations DX BONE MARROW BX & ASPIR [facility] Work Phone: Start: 05-13-2021 COVID-19 VACCINE (3 - Booster for Gustabo series) COVID-19 VACCINE (3 - Booster for Gustabo series) [facility] Start: 04-10-2021 ADVANCE DIRECTIVE DISCUSSION ADVANCE DIRECTIVE DISCUSSION [facility] Start: 2018 PNEUMOVAX AGE 65 AND OVER WITH 5YR LOOKBACK (#1) PNEUMOVAX AGE 65 AND OVER WITH 5YR LOOKBACK (#1) [facility] Start: 08-06-[address] [facility] Start: 08-06-2016 COLORECTAL CANCER SCREENING COLORECTAL CANCER SCREENING [facility] Start: 05-21-2014 Pneumococcal Vaccine: 65+ (2 - PCV) Pneumococcal Vaccine: 65+ (2 - PCV) [facility] Start: 2013 RSV Vaccine (1 - 1-dose 60+ series) RSV Vaccine (1 - 1-dose 60+ series) [facility] Start: 09-27-2009 Lipid 1996 panel - Serum or Plasma Lipid Screening [facility] Start: 09-27-2009 LIPID SCREEN LIPID SCREEN [facility] Start: 07-13-2009 PROSTATE CANCER SCREENING DISCUSSION PROSTATE CANCER SCREENING DISCUSSION [facility] Start: 2008 Influenza vaccination LUNG CANCER SCREENING [facility] Start: 2003 Influenza vaccination LUNG CANCER SCREENING [facility] Start: 2003 SHINGRIX VACCINE (1 of 2) SHINGRIX VACCINE (1 of 2) [facility] Start: 1998 COLOGUARD (FIT-DNA) COLOGUARD (FIT-DNA) [facility] Start: [address] COLONOGRAPHY [facility] Start: 1998 FECAL OCCULT BLOOD FECAL OCCULT BLOOD [facility] Start: 1998 [address]OS[address] [facility] Start: 1972 SHINGRIX VACCINE (1 of 2) SHINGRIX VACCINE (1 of 2) [facility] Start: 1972 Urine microalbumin profile [facility] Start: 1959 PNEUMOCOCCAL: 65+ (1 - PCV) PNEUMOCOCCAL: 65+ (1 - PCV) [facility] Start: 1953 ABDOMINAL AORTIC ANEURYSM SCREENING ABDOMINAL AORTIC ANEURYSM SCREENING [facility] CBC W Auto Different ial panel - Blood CBC + DIFF Lab STAT Multiple myeloma not having achieved remission (HCC) 07/14/2021 9:03 AM EDT [facility] Work Phone: CBC W Ordered Manual Differential panel - Blood PATHOLOGIST INTERPRETATION WITH CBC AND DIFF Lab Routine Smoldering myeloma 07/15/2021 10:27 AM EDT [facility] Work Phone: NM Heart Views W str ess and W radionuclide IV [facility] Patient Education Bone Marrow As piration and Biopsy Procedural Sedation Bone Marrow Biopsy [facility] Work Phone: Patient referral [facility] Work Phone: [facility] Immunizations Immunization Date Immunization Notes Care Provider Fa cility 05-21-2013 Pneumococcal Vaccine [facility] Work Phone: 05-21-2013 pneumococcal vaccine , unspecified formulation [facility] 12-09-2012 Influenza virus vaccine [facility] 12-09-2012 influenza virus vaccine, unspecified formulation Ct ([facility]) Work Phone: [facility] Payers Date Payer Category Payer Unknown [id number] 2024 Self-pay [id number] 2023 Private Health Insurance [id number] 2021 Unknown ANTHEM BLUE CROS S AND BLUE SHIELD ANTHEM MEDIBLUE O [id number] 2021-Present [phone] [address] [place] [address] [id number] 2021 Unknown ANTHEM BLUE CROS S AND BLUE SHIELD ANTHEM MEDIBLUE O [id number] 2021-Present [phone] [address] [place] [address] O [id number] 2013 Unknown [id number] Medicare [id number] Private Health Insurance [facility] [id number] Unknown [id number] Unknown [id number] Unknown [id number] 62 Unknown [id number] 62 Unknown [id number] 62 Unknown [id number] Social History Date Type Detail Facility Start: 06-23-2021 End: 03-14-2023 Tobacco smoking status [facility] Unknown if ever smoked [facility] Start: 12-26-2014 None [facility] Start: 12-26-2014 Spouse/ Signif icant Other [facility] Start: 12-26-2014 Non-smoker [facility] Start: 1955 Sex Assigned At Male [facility] Start: 07-17-2013 End: 08-03-2023 Tobacco smoking status NHIS Ex-smoker [facility] Work Phone: End: 04-10-2009 History of tobacco use Current smoker [facility] Work Phone: End: 04-10-2009 History of tobacco use Cigarette Smoker [facility] Work Phone: Start: 07-17-2013 End: 05-24-2021 Cigarettes smoked current (pack per day) - Reported [address] [facility] Start: 07-17-2013 End: 05-24-2021 Tobacco use and exposure Smokeless tobacco non-user [facility] Work Phone: Start: 05-24-2021 End: 07-14-2021 Alcohol intake Current non-drinker of alcohol (finding) [facility] Start: 1955 Sex Assigned At Not on file C [facility] Start: 05-01-2021 End: 09-18-2021 Exposure to SARS-CoV-2 (event) Not sure [facility] Start: 05-24-2021 Tobacco use panel [facility] Medical Equipment Procedure Code Equipment Code Equipment Origin al Text Equipment Identifier Dates ([id number]) Knee arthroplast y wedge ()[id number] [id number] FDA Start: 08-30-2023 Orthopaedic ceme nt, antimicrobial ()[id number] [id number] FDA Start: 08-30-2023 Tibial insert ()[id number] [id number])[id number] FDA Start: 08-30-2023 Knee arthroplast y wedge ()[id number] [id number] FDA Start: 08-30-2023 ([id number]) Knee arthroplast y wedge ()[id number] [id number] FDA Start: 08-30-2023 ([id number]) Uncoated knee ti jf prosthesis, metallic ()[id number] [id number] FDA Start: 08-30-2023 Uncoated knee fe mur prosthesis, metallic ()[id number] [id number])[id number] FDA Start: 08-30-2023 ([id number]) Knee femur stem prosthesis ()[id number] FDA Start: 08-30-2023 ([id number]) Knee femur stem prosthesis ()[id number] [id number] FDA Start: 08-30-2023 ([id number]) Polymer orthopae dic cement restrictor, non-bioabsorbable, sterile ()[id number] 17)[id number])[id number] FDA Start: 08-30-2023 ([id number]) Polymer orthopae dic cement restrictor, non-bioabsorbable, sterile ([id number] 17)[id number])[id number] FDA Start: 08-30-2023 Mental Status Date Assessment Result Facility 06-23-2021 Cognitive function Voice/Name [facility] Work Phone: 06-23-2021 Cognitive function Level Of Cons ciousness Appropriate;Follows Commands;Drowsy;Responds to vocal stimuli [facility] Work Phone: Clinical Notes 02-08-2011 to 09-18-2021 Patient InstructionsMomorris Bach MD - 09/18/2021 9:03 AM EDTTelephone Encounter - Nancy Quezada LPN - 09/01/2021 10:29 AM EDTTelephone Encounter - Sue Hannon - 09/01/2021 9:18 AM EDT Note Date & Type Note Facility 09-18-2021 Note HNO ID: [id number] Author: Elio Bach MD Service: ? Author Type: Physician Type: Progress Notes Filed: 09/18/2021 9:07 AM Note Text: ASSESSMENT/PLAN: 1. Type 2 diabetes mellitus without retinopathy (HCC) - ICD9: 250.00, ICD10: E11.9 (primary diagnosis) - OCT MACULA CIRRUS OU (BOTH EYES) Please keep your blood sugar under good control to minimize risk of ocular complications from diabetes. Continue to monitor with primary care physician. 2. Pseudophakia of both eyes - ICD9: V43.1, ICD10: Z96.1 Intraocular lens implant in good position Both Eyes. 3. Hx of LASIK - ICD9: V45.69, ICD10: Z98.890 Monitor Start: Systane Complete solution instill 1 drop 3 times daily Both Eyes. Recommended patient see Dr. Sue Wilks for refraction and glasses. 4. Essential hypertension - ICD9: 401.9, ICD10: I10 Continue to monitor with primary care physician. 5. Hypercholesteremia - ICD9: 272.0, ICD10: E78.00 Continue to monitor with primary care physician. Elio Bach MD I have confirmed and edited as necessary the relevant ophthalmic history, review of systems, surgical history, and ophthalmological examination findings as obtained by the ophthalmic technical staff. I have seen and examined Shelbi Garcia. I have discussed the examination findings, diagnosis, and treatment options with Shelbi Garcia and/or his family. I have also reviewed and agree with the assessment and plan as stated above and agree with all its relevant components. I gave the patient the opportunity to ask questions about the findings, diagnosis, and treatment options. [facility] 09-18-2021 Instructions Elio Bach MD - 09/18/2021 9:06 AM EDT Start: Systane Complete solution instill 1 drop 3 times daily Both Eyes. Recommended patient see Dr. Sue Wilks for refraction and glasses. If you have any questions please contact our office at [phone]. After office hours or on the weekend, please call Dr. Bach on his cell phone at [phone]. documented in this encounter [facility] 09-18-2021 History of Present illness Narrative ASSESSMENT/PLAN: 1. Type 2 diabetes mellitus without retinopathy (HCC) - ICD9: 250.00, ICD10: E11.9 (primary diagnosis) - OCT MACULA CIRRUS OU (BOTH EYES) Please keep your blood sugar under good control to minimize risk of ocular complications from diabetes. Continue to monitor with primary care physician. 2. Pseudophakia of both eyes - ICD9: V43.1, ICD10: Z96.1 Intraocular lens implant in good position Both Eyes. 3. Hx of LASIK - ICD9: V45.69, ICD10: Z98.890 Monitor Start: Systane Complete solution instill 1 drop 3 times daily Both Eyes. Recommended patient see Dr. Sue Wilks for refraction and glasses. 4. Essential hypertension - ICD9: 401.9, ICD10: I10 Continue to monitor with primary care physician. 5. Hypercholesteremia - ICD9: 272.0, ICD10: E78.00 Continue to monitor with primary care physician. Elio Bach MD I have confirmed and edited as necessary the relevant ophthalmic history, review of systems, surgical history, and ophthalmological examination findings as obtained by the ophthalmic technical staff. I have seen and examined Shelbi Garcia. I have discussed the examination findings, diagnosis, and treatment options with Shelbi Garcia and/or his family. I have also reviewed and agree with the assessment and plan as stated above and agree with all its relevant components. I gave the patient the opportunity to ask questions about the findings, diagnosis, and treatment options. documented in this encounter [facility] 09-01-2021 Miscellaneous Notes Last OV notes faxed as directed. Nancy Quezada LPN Dr Soler's office at [facility] called requesting the last office note from pts last visit with Dr. Denis on 07/14/21. This was missing from the original fax they received. documented in this encounter [facility] 07-19-2021 Miscellaneous Notes Faxed as requested. Ronel Rosen LPN I spoke with the patient today about the results of his recent CBC showing low neutrophil count. I was perplexed by this but then found out he was recently prescribed methotrexate for his rheumatoid arthritis. He is taking 20 mg once a week. This likely accounts for the anemia and the neutropenia. 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 Please fax a copy of this note, my most recent office visit note and all lab work to Dr. Dasia Helton his infant and toddler teacher at the [place] [facility]. Jp Denis DO documented in this encounter [facility] 07-15-2021 Miscellaneous Notes Pt. Notified of results, will come in today for repeat CBC. Nancy Quezada LPN Please let him know that the CBC from today unexpectedly showed that all his blood counts were low. This may be laboratory error so ask him to have a repeat CBC on or Monday. Jp Denis DO documented in this encounter [facility] 07-14-2021 Note HNO ID: [id number] Author: Jp Denis DO Service: ? Author Type: Physician Type: Progress Notes Filed: 07/14/2021 9:42 AM Note Text: Oncologic problem(s): 1) IgA lambda smoldering myeloma. HPI: The patient is a 66 yo male with a PMH significant for type 2 diabetes, CAD ([place] x3-most recent 2010; each treated with PCI/stent--5 stents total--most recent 2010), atrial fibrillation, CKD, RA, DVT (IVC) and sensory neuropathy. Patient was referred to a infant and toddler teacher for joint pain and elevated inflammatory markers. Patient began experiencing shoulder and hand pain around August 2020. At the time his pain began he had fallen and landed on his right shoulder and pain became significant while doing physical therapy and then worsened to occur in his left shoulder as well. When he had fallen on his shoulder, he was seen in the local ED and needed to have the shoulder relocated. Shortly thereafter he developed pain in the left hand mostly the PIP joints and wrist pain as well as significant swelling the symptoms were constant. He went to see his PCP who was on vacation so different physician had prescribed Plaquenil. He had been taking it for 3 months with no difference in symptoms. He had persistent significant right shoulder pain that radiated to the right upper arm he denied any notable swelling or redness in the arm. Left shoulder was unaffected. As per the rheumatologic work-up, patient had a CBC that was unremarkable. Creatinine was 1.6 mg/dL. Evidently he was found to have an IgA lambda monoclonal protein present. Total serum protein 7.7 g/dL. Albumin 4.6 g/dL. Alk phos 83 units/L. Serum creatinine 1.6 mg/dL when measured on 03/29/2021. CRP was 0.3 and ESR was 35 mm/h. He endorsed he got in touch with his frame tender office and was advised he could stop Coumadin. He continues on aspirin and Plavix. Presents for ongoing oncologic management. Interim history: Returns today to review the results of the bone marrow biopsy. He offers no complaints. 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 PMH, medications and allergies personally reviewed by me today. Any changes documented in appropriate section. ROS: Constitutional: Denies episodes of fever and night sweats. Not significantly fatigued. Normal appetite. Neuro: Denies CAMACHO, vertigo, dizziness and imbalance. HEENT: No recent change in voice, vision or hearing. Resp: Denies cough, wheeze and hemoptysis. Denies shortness of breath at rest. Denies DEL VALLE. CVS: Denies exertional chest pain, PND, orthopnea and LE edema. GI: Denies dysgeusia. Denies symptoms of stomatitis. Denies dysphagia and odynophagia. Denies reflux, n/v, change in bowel habits and abdominal pain. Denies chronic diarrhea. : Denies dysuria or gross hematuria. No symptoms of bladder outlet obstruction. Endo: Denies hot flashes. Denies polyuria and polydipsia. Denies heat and cold intolerance. Musculoskeletal: Pain limited to has fingers from RA. No other MS pain except when had right shoulder injury--resolved. Derm: Denies rash. Denies jaundice and diffuse pruritis. Heme: Denies unusual bleeding and unexplained bruising. Psych: Normal mood. PHYSICAL EXAM: Vitals: Blood pressure 125/61, pulse 65, temperature 36.2 ?C (97.2 ?F), weight 117.5 kg (259 lb), SpO2 96 %. Well-appearing and in no acute distress. EYES: Sclerae are anicteric bilaterally. LYMPHATIC: There is no palpable cervical, supraclavicular or axillaryl adenopathy. RESPIRATORY: Inspiratory breath sounds are of diminishedl intensity in all villalobos. CARDIOVASCULAR: Rhythm is regular. ABDOMEN: The abdomen is nondistended. No organomegaly. No tenderness. Extremities: Edema bilaterally. SKIN: No jaundice or rash. No petechiae. NEUROLOGIC: oracle bpm consultant II-XII are grossly intact. No focal motor weakness. DTRs are symmetric and normal. MUSCULOSKELETAL: Diffuse swelling of the fingers bilaterally. LABS: Component Latest Ref Rng AND Units 05/24/2021 WBC 3.70 - 11.00 k/uL 8.40 RBC 4.20 - 6.00 m/uL 4.56 Hemoglobin 13.0 - 17.0 g/dL 14.9 Hematocrit 39.0 - 51.0 % 46.0 MCV 80.0 - 100.0 fL 100.9 (H) MCH 26.0 - 34.0 pG 32.7 MCHC 30.5 - 36.0 g/dL 32.4 RDW-CV 11.5 - 15.0 % 13.7 Platelet Count 150 - 400 k/uL 229 MPV 9.0 - 12.7 fL 10.7 Neut% % 48.6 Abs Neut (ANC) 1.45 - 7.50 k/uL 4.06 Lymph% % 41.8 Abs Lymph 1.00 - 4.00 k/uL 3.51 Kendall% % 5.5 Abs Kendall <0.87 k/uL 0.46 Eosin% % 3.3 Abs Eosin <0.46 k/uL 0.28 Baso% % 0.8 Abs Baso <0.11 k/uL 0.07 Nucleated Reds 0 /100 WBC 0.0 Absolute nRBC <0.01 k/uL <0.01 Diff Type Auto Diff Pathologist Interpretation, CBCDIF SEE COMMENT Pathologist (DANIELLE) The Pathologist Interpretation on this sample was cancelled because the hematology . . . Protein, Total 6.3 - 8.0 g/dL 7.5 Albumin 3.9 - 4.9 g/dL 4.6 Calcium 8.5 - 10.2 mg/dL 9.2 Bilirubin, Total 0.2 - 1.3 mg/dL 0.6 Alkal (more content not included)... [facility] 07-14-2021 History of Present illness Narrative Oncologic problem(s): 1) IgA lambda smoldering myeloma. HPI: The patient is a 66 yo male with a PMH significant for type 2 diabetes, CAD ([place] x3-most recent 2010; each treated with PCI/stent--5 stents total--most recent 2010), atrial fibrillation, CKD, RA, DVT (IVC) and sensory neuropathy. Patient was referred to a infant and toddler teacher for joint pain and elevated inflammatory markers. Patient began experiencing shoulder and hand pain around August 2020. At the time his pain began he had fallen and landed on his right shoulder and pain became significant while doing physical therapy and then worsened to occur in his left shoulder as well. When he had fallen on his shoulder, he was seen in the local ED and needed to have the shoulder relocated. Shortly thereafter he developed pain in the left hand mostly the PIP joints and wrist pain as well as significant swelling the symptoms were constant. He went to see his PCP who was on vacation so different physician had prescribed Plaquenil. He had been taking it for 3 months with no difference in symptoms. He had persistent significant right shoulder pain that radiated to the right upper arm he denied any notable swelling or redness in the arm. Left shoulder was unaffected. As per the rheumatologic work-up, patient had a CBC that was unremarkable. Creatinine was 1.6 mg/dL. Evidently he was found to have an IgA lambda monoclonal protein present. Total serum protein 7.7 g/dL. Albumin 4.6 g/dL. Alk phos 83 units/L. Serum creatinine 1.6 mg/dL when measured on 03/29/2021. CRP was 0.3 and ESR was 35 mm/h. He endorsed he got in touch with his frame tender office and was advised he could stop Coumadin. He continues on aspirin and Plavix. Presents for ongoing oncologic management. Interim history: Returns today to review the results of the bone marrow biopsy. He offers no complaints. 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 PMH, medications and allergies personally reviewed by me today. Any changes documented in appropriate section. ROS: Constitutional: Denies episodes of fever and night sweats. Not significantly fatigued. Normal appetite. Neuro: Denies CAMACHO, vertigo, dizziness and imbalance. HEENT: No recent change in voice, vision or hearing. Resp: Denies cough, wheeze and hemoptysis. Denies shortness of breath at rest. Denies DEL VALLE. CVS: Denies exertional chest pain, PND, orthopnea and LE edema. GI: Denies dysgeusia. Denies symptoms of stomatitis. Denies dysphagia and odynophagia. Denies reflux, n/v, change in bowel habits and abdominal pain. Denies chronic diarrhea. : Denies dysuria or gross hematuria. No symptoms of bladder outlet obstruction. Endo: Denies hot flashes. Denies polyuria and polydipsia. Denies heat and cold intolerance. Musculoskeletal: Pain limited to has fingers from RA. No other MS pain except when had right shoulder injury--resolved. Derm: Denies rash. Denies jaundice and diffuse pruritis. Heme: Denies unusual bleeding and unexplained bruising. Psych: Normal mood. PHYSICAL EXAM: Vitals: Blood pressure 125/61, pulse 65, temperature 36.2 C (97.2 F), weight 117.5 kg (259 lb), SpO2 96 %. Well-appearing and in no acute distress. EYES: Sclerae are anicteric bilaterally. LYMPHATIC: There is no palpable cervical, supraclavicular or axillaryl adenopathy. RESPIRATORY: Inspiratory breath sounds are of diminishedl intensity in all villalobos. CARDIOVASCULAR: Rhythm is regular. ABDOMEN: The abdomen is nondistended. No organomegaly. No tenderness. Extremities: Edema bilaterally. SKIN: No jaundice or rash. No petechiae. NEUROLOGIC: oracle bpm consultant II-XII are grossly intact. No focal motor weakness. DTRs are symmetric and normal. MUSCULOSKELETAL: Diffuse swelling of the fingers bilaterally. LABS: Component Latest Ref Rng & Units 05/24/2021 WBC 3.70 - 11.00 k/uL 8.40 RBC 4.20 - 6.00 m/uL 4.56 Hemoglobin 13.0 - 17.0 g/dL 14.9 Hematocrit 39.0 - 51.0 % 46.0 MCV 80.0 - 100.0 fL 100.9 (H) MCH 26.0 - 34.0 pG 32.7 MCHC 30.5 - 36.0 g/dL 32.4 RDW-CV 11.5 - 15.0 % 13.7 Platelet Count 150 - 400 k/uL 229 MPV 9.0 - 12.7 fL 10.7 Neut% % 48.6 Abs Neut (ANC) 1.45 - 7.50 k/uL 4.06 Lymph% % 41.8 Abs Lymph 1.00 - 4.00 k/uL 3.51 Kendall% % 5.5 Abs Kendall <0.87 k/uL 0.46 Eosin% % 3.3 Abs Eosin <0.46 k/uL 0.28 Baso% % 0.8 Abs Baso <0.11 k/uL 0.07 Nucleated Reds 0 /100 WBC 0.0 Absolute nRBC <0.01 k/uL <0.01 Diff Type Auto Diff Pathologist Interpretation, CBCDIF SEE COMMENT Pathologist (DANIELLE) The Pathologist Interpretation on this sample was cancelled because the hematology . . . Protein, Total 6.3 - 8.0 g/dL 7.5 Albumin 3.9 - 4.9 g/dL 4.6 Calcium 8.5 - 10.2 mg/dL 9.2 Bilirubin, Total 0.2 - 1.3 mg/dL 0.6 Alkaline Phosphatase 38 - 113 U/L 89 AST 14 - 40 U/L 16 Glucose 74 - 99 mg/dL 116 (H) BUN 9 - 24 mg/dL 20 Creatinine 0.73 - 1.22 mg/dL 1.34 (H) Sodium 136 - 144 mmol/L 140 Potassium 3.7 - 5.1 mmol/L 4.1 Chloride 97 - 105 mmol/L 104 CO2 22 - 30 mmol/L 26 Anion Gap 9 - 18 mmol/L 10 ALT 10 - 54 U/L 20 eGFR- >60 eGFR-All Other Races . 53 Hep B Core Ab, Total Negative Negative Hep C Antibody IA Negative Negative Hep B Surface Ag Negative Negative Hep B Surface Ab, Qual Negative Negative LD 135 - 225 U/L 203 B2 Microglobulin <3.1 mg/L 3.2 (H) Component Latest Ref Rng & Units 05/24/2021 Protein, Total 6.3 - 8.0 g/dL 7.2 Albumin 3.37 - 4.23 gm/dL 4.14 Alpha 1 Globulin 0.18 - 0.31 gm/dL 0.26 Alpha 2 Globulin 0.52 - 0.97 gm/dL 0.72 Beta Globulin 0.84 - 1.36 gm/dL 0.97 Gamma Globulin 0.70 - 1.44 gm/dL 1.11 Interpretation (Prot Electro) SEE COMMENT M-Protein Location Gamma fraction M-Protein Concentration 0.00 gm/dL 0.44 (H) SPE Staff Review Reviewed by Dasia Kessler MD ([id number]) MPA IgG, Serum 700 - 1,600 mg/dL 638 (L) MPA IgA, Serum 70 - 400 mg/dL 610 (H) MPA IgM, Serum 40 - 230 mg/dL 66 [place] Free, Serum 3.30 - 19.40 mg/L 14.2 Lambda Free, Serum 5.7 - 26.3 mg/L 61.1 (H) K/L Ratio, Serum 0.26 - 1.65 0.23 (L) MPA Result No M protein is identified. M protein is present. (A) Interpretation (MPA) SEE COMMENT Staff Review (MPA) Reviewed by Dasia Kessler MD ([id number]) Component Latest Ref Rng & Units 05/30/2021 Protein Conc, 24 Hr Ur 0 - 20 mg/dL 10 Protein, 24 Hr Ur (UEPG24) <0.16 gm/24 Hr 0.24 (H) Albumin %, 24 Hr Urine % 41.9 Alpha 1 Globulin %, 24 Hr Ur % 4.3 Alpha 2 Globulin %, 24 Hr Ur % 13.1 Beta Globulin %, 24 Hr Ur % 28.3 Gamma Globulin %, 24 Hr Ur % 12.3 Interpretation (UEPG24) An M protein is identified on protein electrophoresis. M Bruce Quant, 24 Hr Urine 0.00 gm/24 Hr 0.04 (H) Staff Review (UEPG24) Reviewed by Sirisha Wolfe MD, PhD. ([id number]) Result (UMPA) No M protein is identified. M protein is present. (A) Interpretation (UMPA) SEE COMMENT Staff Review (UMPA) Reviewed by Sirisha Wolfe MD, PhD. ([id number]) IMAGING: Whole-body CT 06/10/2021: RESULT: Please note that this low dose non-contrast examination with free breathing technique is limited for detection of some intrathoracic, solid abdominal organ, and vascular pathologies. Additionally, study is insensitive for detection of diffuse pattern of myelomatous marrow infiltration. OSSEOUS STRUCTURES: Counting reference: Lumbosacral junction. For the purposes of this report, L4-5 is considered the level of the iliac crest and assume there are 5 lumbar-type vertebrae. Anatomic variant: None. Calvarium: There is no well circumscribed lytic lesion measuring 5 mm or greater. Spine: There is no well circumscribed lytic lesion measuring 5 mm or greater. Vertebral body heights are preserved. There are minimal to mild degenerative changes, which are most pronounced at the lower cervical spine, lower thoracic spine, and at L5-S1. Upper extremities: There is no well circumscribed lytic lesion measuring 5 mm or greater. There are no suspicious findings noted in the intramedullary cavities. Ribs/Sternum: There is no well circumscribed lytic lesion measuring 5 mm or greater. Bony pelvis: : There is no well circumscribed lytic lesion measuring 5 mm or greater. Lower extremities: There is no well circumscribed lytic lesion measuring 5 mm or greater. There are no suspicious findings noted in the intramedullary cavities. Status post bilateral total knee arthroplasties without gross evidence for hardware complication. NON-OSSEOUS STRUCTURES Soft tissues: No soft tissue mass. Head/neck: Limited low dose evaluation of intra-cranial structures show No acute intracranial process. No pathologically enlarged cervical adenopathy. CHEST: Lines, tubes, and devices: None. Thoracic inlet, heart, and mediastinum: No lymphadenopathy in the axillary, mediastinal, or hilar regions within limitations of non-contrast exam. No gross cardiac enlargement or pericardial effusion. Chest wall is unremarkable. Coronary artery atherosclerotic calcifications are noted, although the study is not optimized for coronary assessment. There also appear to be coronary stents, also not well evaluated. Lung parenchyma and pleura: No focal consolidation. No suspicious pulmonary nodule is noted within limitations of reduced dose and free breathing technique. No pleural effusion. Central airways appear grossly patent without evidence for discrete endobronchial lesion. ABDOMEN/PELVIS: The unenhanced appearance of the liver, spleen, adrenal glands, and pancreas are unremarkable. No hydroureteronephrosis. No dilated bowel. Colonic diverticulosis without evidence for diverticulitis. No lymphadenopathy by size criteria. Scattered atherosclerotic calcifications without aneurysmal dilatation. Unremarkable unenhanced appearance of pelvic organs and urinary bladder. Mild-moderate atherosclerotic calcifications of the imaged aorta. Application Support Consultant (topogram) images: No additional findings. 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 He has chronic kidney disease with serum creatinine ranging from 1.6 to 2.09 mg/dL back to May 2013. He did not have anemia or hypercalcemia. Recent whole-body CT showed no evidence of lytic bone lesions. -Bone marrow biopsy performed at [facility] demonstrates 11% plasma cells. -By definition, he has smoldering myeloma. By risk stratification using the 2018 [employer] risk stratification system, he has low risk disease, i.e. bone marrow plasma cell percentage less than 20, M protein less than 2 g/dL in the involved/uninvolved free light chain ratio is less than 20. Estimated median time to progression of 110 months; estimated rate of progression of 5 percent per year during the first 10 years. I again discussed the spectrum of plasma cell disorders with him in detail. -Only remaining issue is chronic kidney disease. 24-hour urine demonstrated low level monoclonal protein in the 24-hour collection. Therefore nephrology consultation warranted. Decision on biopsy will be difficult given his need for ongoing antiplatelet therapy. He may be best served by observation given past serum Cr results rather than kidney biopsy but second opinion regarding this from high lift operator is needed. Plan: -Referral to Dr. Flor Soler. -Re-evaluate serum and urine MP in about 6 months. -Annual CT and bone marrow evaluation. Portions of this documentation were copied and pasted from previous office visit notes in order to provide a cohesive continuity of the history. The note has been reviewed and edited and updated as necessary. During this patient visit I have spent approximately 20 minutes out of 30 in counseling regarding test results, discussing the natural history, treated course, and prognosis of low risk of smoldering myeloma and coordinating care. Jp Denis DO documented in this encounter [facility] 07-14-2021 Miscellaneous Notes Orders filed. Jp Denis DO documented in this encounter [facility] 06-15-2021 Note HNO ID: [id number] Author: Jp Denis, DO Service: ? Author Type: Physician Type: Progress Notes Filed: 06/16/2021 5:32 AM Note Text: Oncologic problem(s): 1) IgA lambda monoclonal gammopathy. HPI: The patient is a 66 yo male with a PMH significant for type 2 diabetes, CAD ([place] x3-most recent 2010; each treated with PCI/stent--5 stents total--most recent 2010), atrial fibrillation, CKD, RA, DVT (IVC) and sensory neuropathy. Patient was referred to a infant and toddler teacher for joint pain and elevated inflammatory markers. Patient began experiencing shoulder and hand pain around August 2020. At the time his pain began he had fallen and landed on his right shoulder and pain became significant while doing physical therapy and then worsened to occur in his left shoulder as well. When he had fallen on his shoulder, he was seen in the local ED and needed to have the shoulder relocated. Shortly thereafter he developed pain in the left hand mostly the PIP joints and wrist pain as well as significant swelling the symptoms were constant. He went to see his PCP who was on vacation so different physician had prescribed Plaquenil. He had been taking it for 3 months with no difference in symptoms. He had persistent significant right shoulder pain that radiated to the right upper arm he denied any notable swelling or redness in the arm. Left shoulder was unaffected. As per the rheumatologic work-up, patient had a CBC that was unremarkable. Creatinine was 1.6 mg/dL. Evidently he was found to have an IgA lambda monoclonal protein present. Total serum protein 7.7 g/dL. Albumin 4.6 g/dL. Alk phos 83 units/L. Serum creatinine 1.6 mg/dL when measured on 03/29/2021. CRP was 0.3 and ESR was 35 mm/h. Presents for ongoing oncologic management. Interim history: He offers no complaints today. He endorses he got in touch with his frame tender office and was advised he could stop Coumadin. He continues on aspirin and Plavix. PMH, medications and allergies personally reviewed by me today. Any changes documented in appropriate section. ROS: Constitutional: Denies episodes of fever and night sweats. Not significantly fatigued. Normal appetite. Neuro: Denies CAMACHO, vertigo, dizziness and imbalance. Neuropathy in the feet that has been worsening for the last 3 years--stable now. HEENT: No recent change in voice, vision or hearing. Resp: Denies cough, wheeze and hemoptysis. Denies shortness of breath at rest. Denies DEL VALLE. CVS: Denies exertional chest pain, PND, orthopnea and LE edema. GI: Denies dysgeusia. Denies symptoms of stomatitis. Denies dysphagia and odynophagia. Denies reflux, n/v, change in bowel habits and abdominal pain. Denies chronic diarrhea. : Denies dysuria or gross hematuria. No symptoms of bladder outlet obstruction. Endo: Denies hot flashes. Denies polyuria and polydipsia. Denies heat and cold intolerance. Musculoskeletal: Pain limited to has fingers from RA. No other MS pain except when had right shoulder injury--resolved. Derm: Denies rash. Denies jaundice and diffuse pruritis. Heme: Denies unusual bleeding and unexplained bruising. Psych: Normal mood. PHYSICAL EXAM: Vitals: Blood pressure 142/68, pulse (!) 59, temperature 36.2 ?C (97.2 ?F), temperature source Temporal, weight 121.3 kg (267 lb 8 oz). Well-appearing and in no acute distress. EYES: Sclerae are anicteric bilaterally. LYMPHATIC: There is no palpable cervical, supraclavicular or axillaryl adenopathy. RESPIRATORY: Inspiratory breath sounds are of diminishedl intensity in all villalobos. CARDIOVASCULAR: Rhythm is regular. ABDOMEN: The abdomen is nondistended. No organomegaly. No tenderness. Extremities: Edema bilaterally. SKIN: No jaundice or rash. No petechiae. NEUROLOGIC: oracle bpm consultant II-XII are grossly intact. No focal motor weakness. DTRs are symmetric and normal. MUSCULOSKELETAL: Diffuse swelling of the fingers bilaterally. LABS: Component Latest Ref Rng AND Units 05/24/2021 WBC 3.70 - 11.00 k/uL 8.40 RBC 4.20 - 6.00 m/uL 4.56 Hemoglobin 13.0 - 17.0 g/dL 14.9 Hematocrit 39.0 - 51.0 % 46.0 MCV 80.0 - 100.0 fL 100.9 (H) MCH 26.0 - 34.0 pG 32.7 MCHC 30.5 - 36.0 g/dL 32.4 RDW-CV 11.5 - 15.0 % 13.7 Platelet Count 150 - 400 k/uL 229 MPV 9.0 - 12.7 fL 10.7 Neut% % 48.6 Abs Neut (ANC) 1.45 - 7.50 k/uL 4.06 Lymph% % 41.8 Abs Lymph 1.00 - 4.00 k/uL 3.51 Kendall% % 5.5 Abs Kendall <0.87 k/uL 0.46 Eosin% % 3.3 Abs Eosin <0.46 k/uL 0.28 Baso% % 0.8 Abs Baso <0.11 k/uL 0.07 Nucleated Reds 0 /100 WBC 0.0 Absolute nRBC <0.01 k/uL <0.01 Diff Type Auto Diff Pathologist Interpretation, CBCDIF SEE COMMENT Pathologist (DANIELLE) The Pathologist Interpretation on this sample was cancelled because the hematology . . . Protein, Total 6.3 - 8.0 g/dL 7.5 Albumin 3.9 - 4.9 g/dL 4.6 Calcium 8.5 - 10.2 mg/dL 9.2 Bilirubin, Total 0.2 - 1.3 mg/dL 0.6 Alkaline Phosphatase 38 - 113 U/L 89 AST 14 - 40 U/L 16 Glu (more content not included)... [facility] 06-10-2021 Note HNO ID: [id number] Author: RT Camila(Kilo) Service: ? Author Type: Furniture Upholsterer Type: Progress Notes Filed: 06/10/2021 2:03 PM Note Text: Radiology Service Progress Note PATIENT NAME: Shelbi Garcia DATE OF SERVICE: June 10, 2021 TIME: 2:02 PM PATIENT IDENTITY VERIFICATION COMPLETED USING TWO (2) IDENTIFIERS: Name and Date of confirmed by patient verbally. FALL SCREENING: Has the patient had 2 falls in the last year or 1 fall with injury or currently using an Ambulatory Assistive Device (Walker, Cane, Wheelchair, Crutches, etc.)? No PATIENT GENDER DATA: Male PATIENT RELEVANT IMPLANT DATA REVIEWED: Yes RADIOLOGY DEPARTMENT: CT; Exam(s) Completed: WHOLE BODY SKULL TO KNEES PERIPHERAL IV DATA: Not applicable SIGNED BY: RT Camila(R) June 10, 2021 2:02 PM [facility] 06-10-2021 History of Present illness Narrative Radiology Service Progress Note PATIENT NAME: Shelbi Garcia DATE OF SERVICE: June 10, 2021 TIME: 2:02 PM PATIENT IDENTITY VERIFICATION COMPLETED USING TWO (2) IDENTIFIERS: Name and Date of confirmed by patient verbally. FALL SCREENING: Has the patient had 2 falls in the last year or 1 fall with injury or currently using an Ambulatory Assistive Device (Walker, Cane, Wheelchair, Crutches, etc.)? No PATIENT GENDER DATA: Male PATIENT RELEVANT IMPLANT DATA REVIEWED: Yes RADIOLOGY DEPARTMENT: CT; Exam(s) Completed: WHOLE BODY SKULL TO KNEES PERIPHERAL IV DATA: Not applicable SIGNED BY: RT Camila(R) June 10, 2021 2:02 PM documented in this encounter [facility] 05-24-2021 Note HNO ID: [id number] Author: Jp Denis, DO Service: ? Author Type: Physician Type: Progress Notes Filed: 05/24/2021 1:57 PM Note Text: atient referred by Bossman for IgA lambda monoclonal gammopathy. The impression and plan will be communicated by way of the shared electronic record or faxed under separate cover letter. HPI: The patient is a 66 yo male with a PMH significant for type 2 diabetes, CAD (TX x3; each treated with PCI/stent--5 stents altogether), atrial fibrillation, CKD, RA and sensory neuropathy. Patient was referred to a infant and toddler teacher for joint pain and elevated inflammatory markers. Patient began experiencing shoulder and hand pain around August 2020. At the time his pain began he had fallen and landed on his right shoulder and pain became significant while doing physical therapy and then worsened to occur in his left shoulder as well. When he had fallen on his shoulder, he was seen in the local ED and needed to have the shoulder relocated. Shortly thereafter he developed pain in the left hand mostly the PIP joints and wrist pain as well as significant swelling the symptoms were constant. He went to see his PCP who was on vacation so different physician had prescribed Plaquenil. He has been taking it for 3 months with no difference in symptoms. He had persistent significant right shoulder pain that radiated to the right upper arm he denied any notable swelling or redness in the arm. Left shoulder was unaffected. As per the rheumatologic work-up, patient had a CBC that was unremarkable. Creatinine was 1.6 mg/dL. Evidently he was found to have an IgA lambda monoclonal protein present. Total serum protein 7.7 g/dL. Albumin 4.6 g/dL. Alk phos 83 units/L. Serum creatinine 1.6 mg/dL when measured on 03/29/2021. CRP was 0.3 and ESR was 35 mm/h. He offers no complaints. PMH, medications and allergies personally reviewed by me today. Any changes documented in appropriate section. ROS: Constitutional: Denies episodes of fever and night sweats. Not significantly fatigued. Normal appetite. Neuro: Denies CAMACHO, vertigo, dizziness and imbalance. Neuropathy in the feet that has been worsening for the last 3 years. HEENT: No recent change in voice, vision or hearing. Resp: Denies cough, wheeze and hemoptysis. Denies shortness of breath at rest. Denies DEL VALLE. CVS: Denies exertional chest pain, PND, orthopnea and LE edema. GI: Denies dysgeusia. Denies symptoms of stomatitis. Denies dysphagia and odynophagia. Denies reflux, n/v, change in bowel habits and abdominal pain. Denies chronic diarrhea. : Denies dysuria or gross hematuria. No symptoms of bladder outlet obstruction. Endo: Denies hot flashes. Denies polyuria and polydipsia. Denies heat and cold intolerance. Musculoskeletal: Pain limited to has fingers from RA. No other MS pain except when had right shoulder injury--resolved. Derm: Denies rash. Denies jaundice and diffuse pruritis. Heme: Denies unusual bleeding and unexplained bruising. Psych: Normal mood. PHYSICAL EXAM: Vitals: Blood pressure 144/66, pulse 64, temperature 36.7 ?C (98.1 ?F), height 173 cm (5' 8.11), weight 120.4 kg (265 lb 8 oz), SpO2 96 %. Well-appearing and in no acute distress. EYES: Sclerae are anicteric bilaterally. LYMPHATIC: There is no palpable cervical, supraclavicular or axillaryl adenopathy. RESPIRATORY: Inspiratory breath sounds are of diminishedl intensity in all villalobos. CARDIOVASCULAR: Rhythm is regular. ABDOMEN: The abdomen is nondistended. No organomegaly. No tenderness. Extremities: Edema bilaterally. SKIN: No jaundice or rash. No petechiae. NEUROLOGIC: oracle bpm consultant II-XII are grossly intact. No focal motor weakness. DTRs are symmetric and normal. MUSCULOSKELETAL: Diffuse swelling of the fingers bilaterally. 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 I cannot find record of electrophoresis so level of protein not quantifiable. He has chronic kidney disease with serum creatinine ranging from 1.6 to 2.09 mg/dL back to May 2013. He does not have anemia or hypercalcemia. -I discussed with him the spectrum of plasma cell dyscrasias. He needs repeat work-up and quantification of the IgM lambda monoclonal protein. He has no convincing evidence of amyloidosis with the exception of slowly progressive neuropathy which could be attributed to his diabetes. Nonetheless he will need bone marrow evaluation as part of the work-up but right now he is on dual antiplatelet therapy and anticoagulation. Work-up will start with basic lab work and radiographic imaging including bone survey and whole-body CT scan. Once he has a chance to see his frame tender then we can decide on timing of bone marrow biopsy. Plan: Lab work t (more content not included)... [facility] 02-08-2011 Evaluation note Diagnosis Onset Date Benign essential HTN chronic HLD (hyperlipidemia) chronic Presence of stent in coronar y artery February, chronic [facility] Work Phone: Evaluation noteNo assessment information available [facility] Work Phone: Evaluation note* Diagnosis Multiple myeloma not having achieved remission (HCC)- Primary Multiple myeloma, without mention of having achieved remission [facility] Diagnosis Smoldering myeloma- Primary Multiple myeloma, without mention of having achieved remission [facility] Diagnosis Smoldering myeloma- Primary Multiple myeloma, without mention of having achieved remission [facility] Diagnosis Type 2 diabetes mellitus without retinopathy (HCC)- Primary Type II or unspecified type diabetes mellitus without mention of complication, not stated as uncontrolled Pseudophakia of both eyes Lens replaced by other means Hx of LASIK Other states following surgery of eye and adnexa Essential hypertension Unspecified essential hypertension Hypercholesteremia Pure hypercholesterolemia [facility] Diagnosis Multiple myeloma not having achieved remission (HCC) Multiple myeloma, without mention of having achieved remission [facility] (narrative)No reason for referral information availableWGood Samaritan Hospital Work Phone: Chief Complaint and Reason for Visit Chief Complaint Monoclonal gammopath y Chief Complaint Monoclonal gammopath y EORDER & PAPER/FAX RESULTS TO [facility] Chief Complaint Monoclonal gammopath y EORDER & PAPER/FAX RESULTS TO Lroa [facility] RENAL FAILURE Chief Complaint 1 Y FU PREV PFM RT ARTIFICIAL KNEE JOINT, PAIN Reason for Visit Benign essential HTN HLD (hyperlipidemia) Presence of stent in coronary artery Chief Complaint 1 Y FU PREV PFM RT ARTIFICIAL KNEE JOINT, PAIN 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 a Amb Documentation Reason for Visit Benign essential HTN HLD (hyperlipidemia) Presence of stent in coronary artery Chief Complaint 1 Y FU PREV PFM RT ARTIFICIAL KNEE JOINT, PAIN 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 Amb Documentation ABN STRESS, FATIGUE, DEL VALLE, CAD Reason for Visit Benign essential HTN HLD (hyperlipidemia) Presence of stent in coronary artery Family History No Family History Records Found Relationship Condition Age at Onset Recorded Date/T gallito Not Specified Cardiac disease Unknown Myocardial infarction Unknown Hypertension Unknown Cerebrovascular accident (CVA) Unknown Advance Directives No Advanced Directives Records Found Advance Directive Response Recorded Date/ Time Advance Directives Yes December 11:37am Living Will Yes December 16 021 3:57pm Power of Finisher Plate Yes December 16, 2020 3:57pm Advance Directive Response Recorded Date/ Time Advance Directives Yes December 10:37am Living Will Yes December 16, 021 2:57pm Power of Finisher Plate Yes December 16, 2020 2:57pm Advance Directive Response Recorded Date/ Time Advance Directives on File Yes Decem 2022 8:08am Name of Medical Power of Finisher Plate ? unsure March 14, 2023 8:08am Advance Directives Yes March 14, 2023 8:08am Living Will Yes March 14 8:08am Power of Finisher Plate Yes March 14, 2023 8:08am Advance Directive Response Recorded Date/ Time Advance Directives Yes March 14, 2023 9:08am Medications Administered Section Active Administered Medications - up to 3 most recent administrations Medication Order MAR Action Action Date Dose Rate Site fluorescein-benoxinate 0.25-0.4 % 1 Drop (FLURESS) 1 Drop, BOTH EYES, DIRECTED, Starting on 09/18/21 at 0830, Until 09/18/21 at 2028, Administer for applanation tonometry. In the event of a Fluress shortage, administer Selina-Fluor 1 drop into both eyes as directed for applanation tonometry Given 09/18/2021 8:28 AM EDT 1 Drop PHENYLephrine 2.5 % 1 Drop (AK-DILATE, SINGH-SYNEPHRINE) 1 Drop, BOTH EYES, DIRECTED, Starting on 09/18/21 at 0830, Until 09/18/21 at 2028, Administer for dilation PROTECT FROM LIGHT Given 09/18/2021 8:28 AM EDT 1 Drop proparacaine 0.5 % 1 Drop (ALCAINE) 1 Drop, BOTH EYES, DIRECTED, Starting on 09/18/21 at 0830, Until 09/18/21 at 2028, Administer for pneumo tonometry, tonopen tonometry, or pachymetry. In the event of a proparacaine shortage, administer tetracaine 0.5% ophthalmic drops 1 drop in the left eye as directed for pneumo tonometry, tonopen tonometry, or pachymetry Given 09/18/2021 8:28 AM EDT 1 Drop tropicamide 1 % 1 Drop (MYDRIACYL) 1 Drop, BOTH EYES, DIRECTED, Starting on 09/18/21 at 0830, Until 09/18/21 at 2028, Administer for dilation Given 09/18/2021 8:28 AM EDT 1 Drop Summary Purpose Reason for Referral Specialty Diagnoses / Procedures Referred By Jennifer duran Referred To Contact CT IMAGING Diagnoses Multiple myeloma not having achieved remission (HCC) Procedures CT WHOLE BODY SKULL TO KNEE WO IVCON UNLISTED COMPUTED TOMOGRAPHY PROCEDURE Jp Denis, [address] [place] [address] [place] [address] Referral ID Status Reason Start Date Expiration Date V isits Requested Visits Authorized [id number] Closed Auto-Generate d Referral 05/24/2021 06/23/2022 1 1 Additional Source Comments Goals (unrecognized section and content) Goals may be documented in a n alternate sectionGoals may be documented in an alternate sectionGoals may be documented in an alternate sectionGoals may be documented in an alternate sectionGoals may be documented in an alternate sectionGoals may be documented in an alternate sectionGoals may be documented in an alternate sectionGoals may be documented in an alternate section Source Comments (unrecognize d section and content) In the event this informatio n is protected by the Federal Confidentiality of Alcohol and Drug Abuse Patient Records regulations: The Federal rules restrict any use of the information to criminally investigate or prosecute any alcohol or drug abuse patient.[facility] the event this information is protected by the Federal Confidentiality of Alcohol and Drug Abuse Patient Records regulations: The Federal rules restrict any use of the information to criminally investigate or prosecute any alcohol or drug abuse patient.[facility] the event this information is protected by the Federal Confidentiality of Alcohol and Drug Abuse Patient Records regulations: The Federal rules restrict any use of the information to criminally investigate or prosecute any alcohol or drug abuse patient.[facility] the event this information is protected by the Federal Confidentiality of Alcohol and Drug Abuse Patient Records regulations: The Federal rules restrict any use of the information to criminally investigate or prosecute any alcohol or drug abuse patient.[facility] the event this information is protected by the Federal Confidentiality of Alcohol and Drug Abuse Patient Records regulations: The Federal rules restrict any use of the information to criminally investigate or prosecute any alcohol or drug abuse patient.[facility] the event this information is protected by the Federal Confidentiality of Alcohol and Drug Abuse Patient Records regulations: The Federal rules restrict any use of the information to criminally investigate or prosecute any alcohol or drug abuse patient.[facility] the event this information is protected by the Federal Confidentiality of Alcohol and Drug Abuse Patient Records regulations: The Federal rules restrict any use of the information to criminally investigate or prosecute any alcohol or drug abuse patient.[facility] Reason for Visit (unrecogniz ed section and content) Reason Comments Orders Reason Comments Established Patient Reason Comments Results Reason Comments Information Reason Comments Blurry Vision Both Eyes Right eye worse than left Difficulty Reading Both Eyes Glare Tearing Both Eyes Diabetes Reason Comments Radiology CT Specialty Diagnoses / Procedures Referred By Contac t Referred To Contact CT IMAGING Diagnoses Multiple myeloma not having achieved remission (HCC) Procedures CT WHOLE BODY SKULL TO KNEE WO IVCON UNLISTED COMPUTED TOMOGRAPHY PROCEDURE Jp Denis, DO [address] [place] [address] [place] [address] Referral ID Status Reason Start Date Expiration Date V isits Requested Visits Authorized [id number] Closed Auto-Generate d Referral 05/24/2021 06/23/2022 1 1 Care Teams (unrecognized sec tion and content) Tool Programmer Relationship Specialty Start Date End Date Fatoumata Red [address] [place] [address] PCP - General Family Practice 06/22/21 Dasia Helton Referring Rheumatology 05/17/21 Tool Programmer Relationship Specialty Start Date End Date Fatoumata Red [address] [place] [address] PCP - General Family Practice 06/22/21 Dasia Helton Referring Rheumatology 05/17/21 Tool Programmer Relationship Specialty Start Date End Date Fatoumata Red [address] [address] PCP - General Family Practice 06/22/21 Dasia Helton Referring Rheumatology 05/17/21 Tool Programmer Relationship Specialty Start Date End Date Fatoumata Red [address] [place] [address] PCP - General Family Practice 06/22/21 Dasia Helton Referring Rheumatology 05/17/21 Team Status: Active Member Role Status Dates Dr. Mary Walton MD Family Provider Active Dr. Fatoumata Red MD Primary Care Provider Active Team Status: Inactive Member Role Status Dates Dr. Fatoumata Red MD Primary Care Prov ider, Attending Provider, Referring Provider Active Team Status: Inactive Member Role Status Dates Dr. Fatoumata Red MD Primary Care Provider, Referrin g Provider Active Dr. Jp Fried MD Active [place]onse [place] OUTSOLE PARAFFINER, OUTSOLE PARAFFINER-C Attending Provider Active Team Status: Inactive Member Role Status Dates Dr. Fatoumata Red MD Primary Care Provider Active Dr. Warren Olivarez DO Attending Provider Active Team Status: Inactive Member Role Status Dates Dr. Fatoumata Red MD Primary Care Provider Active Dr. Warren Olivarez DO Attending Provider, Referring Provider Active Tool Programmer Relationship Specialty Start Date End Date Mary Walton MD PCP - General Internal Medicine 07/05/13 06/21/21 Dasia Helton MD Referring Rheumatology 05/17/21 Team Status: Active Member Role Status Dates Dr. Fatoumata Red MD Primary Care Provider Active [place] [place] OUTSOLE PARAFFINER, OUTSOLE PARAFFINER-C Referring Provider, Other Provi jorge Active Dr. Marialuisa Salas MD Attending Provider Activ e Team Status: Active Member Role Status Dates Dr. Fatoumata Red MD Primary Care Provider Active [place] [place] OUTSOLE PARAFFINER, OUTSOLE PARAFFINER-C Attending Provider Active Team Status: Inactive Member Role Status Dates Dr. Fatoumata Red MD Primary Care Provider Active [place] [place] OUTSOLE PARAFFINER, OUTSOLE PARAFFINER-C Attending Provider, Referring P jamal Active Team Status: Active Member Role Status Dates Dr. Fatoumata Red MD Primary Care Provider Active Dr. Marialuisa Salas MD Attending Provider Activ e [place] [place] OUTSOLE PARAFFINER, OUTSOLE PARAFFINER-C Referring Provider Active Team Status: Inactive Member Role Status Dates Dr. Fatoumata Red MD Primary Care Provider Active Dr. Delon Hamilton MD Attending Provider, Referring Pr ovider Active Team Status: Active Member Role/Relationship Status Dates Dr. Fatoumata Red MD Primary Care Provider Active Team Status: Inactive Member Role/Relationship Status Dates Dr. Fatoumata Red MD Primary Care Provider Active Start: November 28, 2024 End: November 28, 2024 Dr. Fatoumata Red MD Attending Provider Active Start: November 28, 2024 End: November 28, 2024 Dr. Fatoumata Red MD Referring Provider Active Start: November 28, 2024 End: November 28, 2024 (unrecognized sect ion and content) No Status Records FoundNo Status Records Found INFORMATION SOURCE (unrecogn ized section and content) DATE CREATED AUTHOR 09/18/2021 [facility] DATE CREATED AUTHOR AUTHOR'S ORGANIZ ATION 12/11/2024 [facility] FOR RECORDS PERTAINING TO PATIENTS WHO ARE OR HAVE BEEN ENROLLED IN A CHEMICAL DEPENDENCY/SUBSTANCEABUSE PROGRAM, SOME INFORMATION MAY BE OMITTED. This clinical summary was aggregated from multiple sources. Caution should be exercised in using it in the provision of clinical care. This summary normalizes information from multiple sources, and as a consequence, information in this document may materially change the coding, format and clinical context of patient data. In addition, data may be omitted in some cases. CLINICAL DECISIONS SHOULD BE BASED ON THE PRIMARY CLINICAL RECORDS. [employer] provides no warranty or guarantee of the accuracy or completeness of information in this document.
--- NOTE | 2024-12-23 11:43 | STRESSREP_ITS ---
Stress Test Report Date: 12/23/2024 Procedure: Pharmacologic stress nuclear imaging study Indications: Chest pain Consent: Per the patient Procedure: The patient underwent pharmacologic (Regadenoson 0.4mg ) evaluation with a peak heart rate of 66 beats per minute (44%predicted maximal heart rate) and a peak blood pressure of 122/74 mmHg. The baseline ECG demonstrated sinus rhythm. The peak pharmacologic ECG did not show any ischemic changes. There were no cardiac dysrhythmias pretest, during pharmacologic infusion, or recovery. There was no complaint of chest discomfort during pharmacologic infusion or recovery. The patient was injected with 14.8 millicuries of technetium 99m Cardiolite and subsequently rest SPECT Cardiolite nuclear imaging was obtained in the horizontal long, vertical long, and short axis views. The patient underwent pharmacologic (Regadenoson) evaluation. The patient was injected with 44.6 millicuries of technetium 99m Cardiolite and subsequently stress SPECT Cardiolite nuclear imaging was obtained in the horizontal long, vertical long, and short axis views. A gated Cardiolite study at peak stress was obtained. The examination was stopped secondary to completion of protocol. Rest and stress SPECT Cardiolite nuclear imaging status post realignment, normalization, and attenuation correction demonstrate no fixed or reversible perfusion defects. There is end systolic thickening and brightening. The gated Cardiolite study demonstrates myocardial thickening and inward wall motion. The reported LVEF is 67%. Impression: 1. Pharmacologic (Regadenoson) evaluation 2. Peak pharmacologic ECG with no ischemic changes. 3. There were no cardiac dysrhythmias pretest, during pharmacologic infusion, o r recovery. 5. Rest and stress SPECT Cardiolite nuclear imaging demonstrate relative uniform tracer uptake and myocardial perfusion appearing within normal limits. 6. The gated Cardiolite study reports an LVEF of 67%. This note was generated with Rapid[employer] software. It may contain incorrect words, spelling, and punctuation that were not noted in checking the note before signing.
== END | disposition home or self-care (01) ==
LOC: CVS 06:19
PROVIDERS: PCP Family Medicine; Referring Provider Family Medicine; Visit Provider Family Medicine
DX: I25.10 Atherosclerotic heart disease of native coronary artery without angina pectoris (principal); R07.9 Chest pain, unspecified; I25.2 Old myocardial infarction; Z95.5 Presence of coronary angioplasty implant and graft
CPT/HCPCS: 78452; 93017; A9500; A4216; J2785

== ENCOUNTER → 2024-12-30 | Outpatient (CLI) | payer MEDICARE, SELFPAY ==
[2024-12-30 15:47] LABS: Hematocrit 40.3 % (40-54); Hemoglobin 13.0 g/dL (13.0-16.5); Immature Granulocytes Count 0.020 X10^3/uL (0.0-0.0); Mean Corp Hgb Conc 32.3 g/dL (32-36); Mean Corpuscular Volume 101.5 fL (80-94); Mean Platelet Vol. 11.4 fl (6.2-12.0); NRBC Flagged by Analyzer 0 % (0-5); Platelet Count 201 K/mm3 (150-450); RBC Distribution Width CV 14.0 % (11.6-14.6); RBC Distribution Width SD 52.5 fl (35.1-43.9); Red Blood Count 3.97 M/mm3 (4.6-6.2); White Blood Count 8.6 K/mm3 (4.4-11.0)
[2024-12-30 16:52] LABS: Anion Gap 13 (5-15); BUN 31 mg/dL (4-19); BUN/Creat Ratio 17.0 RATIO (10-20); Calcium,Total 9.0 mg/dL (7.6-11.0); Carbon Dioxide 22.9 mmol/L (21.0-32.0); Chloride 104 mmol/L (98-108); Glucose 114 mg/dL (70-99); Potassium 4.6 mmol/L (3.3-5.1); Pro- Brain NATRIURETIC PEPTIDE 1230 pg/mL (<=900)
--- OUTSIDE RECORDS SUMMARY | 2024-12-30 16:58 | XMS RPT_ITS | CCD ---
Author Organization [facility] Care Team Providers Care Cook Pressure Name Role Phone Dasia Helton Unavailable Fatoumata Red Primary Care Provider Dr. Fatoumata Red Primary Care Provider [phone] Dr. Fatoumata Red Referring Provider Can COPE, HEAD LINEMAN-C Monse Attending Provider Mary Walton MD Primary Care Provider Dasia Helton MD Unavailable Dr. Fatoumata Red Primary Care Provider [phone] Dr. Fatoumata Red Referring Provider Can COPE, HEAD LINEMAN-C Monse Attending Provider Can COPE, HEAD LINEMAN-C Monse Referring Provider Can COPE, HEAD LINEMAN-C Monse Other Provider Dr. Marialuisa Salas Attending Provider Dr. Marialuisa Salas Attending Provider Can COPE, HEAD LINEMAN-C Monse Referring Provider Dr. Fatoumata Red MD Primary Care Provider Dr. Fatoumata Red MD Attending Provider [phone] Dr. Fatoumata Red MD Referring Provider Fatoumata Red Consulting Unavailable Delon Hamilton Attending Unavailable Miedel, Fatoumata Referring Unavailable Miedel, Fatoumata Primary Care Unavailable Miedel, Fatoumata Attending Unavailable Miedel, Fatoumata Referring Unavailable Miedel, Fatoumata Primary Care Unavailable Warren Ireland Attending Unavailable Miedel, Fatoumata Referring Unavailable Miedel, Fatoumata Primary Care Unavailable Miedel, Fatoumata Primary Care Unavailable Colton Schroeder NP Attending Unavailable Miedel, Fatoumata Referring Unavailable Miedel, Fatoumata Primary Care Unavailable Miedel, Fatoumata Attending Unavailable Miedel, Fatoumata Referring Unavailable Miedel, Fatoumata Attending Unavailable Miedel, Fatoumata Referring Unavailable Miedel, Fatoumata Primary Care Unavailable Allergies Allergy Classification Reported Allergen(s) Allergy Type Date of Onset Reaction(s) Facility (11 sources) diphenhydrAMINE; Translations: [diphenhydramine HCl] Drug Allergy 07-17-2013 [facility] Work Phone: (7 sources) buPROPion Drug Allergy 01-28-2005 [facility] Medications Current Medications Medication Drug Class(es) Dates [...] 3000 mg Tylenol in a 24-hour period. [id number] 200 actuat albuterol 0.09 mg/actuat metered dose [...] mouth once daily. Take 1 tablet by anaid once daily. empagliflozin 10 mg oral tablet (20 sources) Sodium-Glucose Cotransporter 2 Inhibitor Start: End: Empagliflozin (Jardiance) 10 mg tablet Active 10 mg PO MOWENovember 19, 2021 2:01pm DIABETES take 1 tablet [...] mg Tablet Active 20 mg PO DAILY September 01, 2023 12:00am furosemide 40 mg oral tablet (8 sources) Loop Diuretic Start: 06-17-19 take 1 tablet by mouth once daily Furosemide 40 mg tablet Active 40 mg PO DAILY June 16, 2020 1:00am WATER PILL gabapentin 400 mg oral capsule (15 sources) Anti-epileptic Agent Start: 06-20-19 25 take 2 capsules by mouth three times [...] Weekly bmp, cbc, and esr. Fax to [phone]. Routine picc care per protocol. COMPOUNDED PRESCRIPTION [...] Comment on above: Take 1 capsule by [facility] once daily. Hydrocodone-Acetamino phen 1 EACH tablet [...] 2020 1:00am November 07, 2023 8:50am DIABETES F-Gaoqfvo-Q0 Mcui-Rqrpyb-W14 3-35-2 mg tab or Capsule (7 sources) Start: 4 take 1 tablet by mouth twice daily I-Kzkpyrc-S1 Vexq-Eapple-J10 3-35-2 mg tab or Capsule Take 1 tablet by mouth twice daily. 0 07/17/2013 Active Comment on above: Take 1 tablet by [facility] twice daily. lansoprazole 30 mg delayed release oral capsule (15 sources) Proton Pump Inhibitor Start: 3 End: 2 take 1 capsule by mouth once daily Lansoprazole 30 MG capsule Discontinued 30 mg PO DAILY January 31, 2013 12:00am November 19, 2021 2:00pm Comment on above: Take 1 capsule by [facility] once daily. Czmnrvalw-M5-Onw51-Al gal Oil (7 sources) Start: 3 End: Wqlzrwgwn-T0-Ujl91-Al gal Oil Discontinued 1 EACH PO DAILY January 31, 2013 11:02am June 16, 2020 5:48pm Start: 01-31-2013 End: 06-16-2020 Kxqhkpion-E2-Mph78-Algal Oil Discontinued 1 EACH PO DAILY January 30, 2013 11:00pm June 16, 2020 4:48pm Start: 01-31-2013 End: 06-16-2020 Pepnjrtgu-B2-Btm83-Algal Oil Discontinued 1 EACH PO DAILY January 31, 2013 12:00am June 16, 2020 5:48pm Ctquokizu-U3-Gid32-Algal Oil 1 EACH capsule (1 source) Start: 01-31-2013 End: 06-16-2020 Zzwyvqbik-R4-Vcp75-Algal Oil 1 EACH capsule Discontinued 1 NMA [...] Take 1 tablet by anaid twice daily. methotrexate 2.5 mg oral tablet (13 sources) Folate Analog Metabolic Inhibitor Start: 2 End: 4 take 4 tablets by mouth twice daily Methotrexate Sodium 2.5 mg tablet Discontinued 10 mg PO .COMPLEX November 19, 2021 12:00am August 03, 2023 8:13am 4 tablets BID on Wednesdays only; Start: 11-19-2021 take 4 tablets by mo [facility] twice daily Methotrexate Sodium Active 10 MG [...] Coronary atherosclerosis; Translations: [Atherosclerotic heart disease of [place] coronary artery without angina pectoris] Onset: 12-29-2024 06-18-2020 Chronic Diabetes mellitus with complications (1 [...] pain, unspecified; Translations: [Chest pain, unspecified] Onset: 12-29-2024 Episodic Other connective tissue disease (1 source) [...] Translations: [Benign neoplasm of colon, unspecified] Onset: 05-08-2014 05-08-2014 Episodic Unclassified (8 sources) Medical management 06-16-2020 Results Test Name Value Interpretation Reference Range Facility Stress Reporton 12-23-2024 Stress Report [facility] [address] [place] [address] MR#: [id number] Acct: [id number] Name: SHELBI GARCIA Rep #: [id number] : 1955 69 From: Delon Hamilton MD Primary Care: Dr. Fatoumata Red MD Status: REG CLI Referring Dr: Fatoumata Red MD Sex: M C Stress Test Report Date: 12/23/2024 Procedure: Pharmacologic stress nuclear imaging study Indications: Chest pain Consent: Per the patient Procedure: The patient underwent pharmacologic (Regadenoson 0.4mg ) evaluation with a peak heart rate of 66 beats per minute (44%predicted maximal heart rate) and a peak blood pressure of 122/74 mmHg. The baseline ECG demonstrated sinus rhythm. The peak pharmacologic ECG did not show any ischemic changes. There were no cardiac dysrhythmias pretest, during pharmacologic infusion, or recovery. There was no complaint of chest discomfort during pharmacologic infusion or recovery. The patient was injected with 14.8 millicuries of technetium 99m Cardiolite and subsequently rest SPECT Cardiolite nuclear imaging was obtained in the horizontal long, vertical long, and short axis views. The patient underwent pharmacologic (Regadenoson) evaluation. The patient was injected with 44.6 millicuries of technetium 99m Cardiolite and subsequently stress SPECT Cardiolite nuclear imaging was obtained in the horizontal long, vertical long, and short axis views. A gated Cardiolite study at peak stress was obtained. The examination was stopped secondary to completion of protocol. Rest and stress SPECT Cardiolite nuclear imaging status post realignment, normalization, and attenuation correction demonstrate no fixed or reversible perfusion defects. There is end systolic thickening and brightening. The gated Cardiolite study demonstrates myocardial thickening and inward wall motion. The reported LVEF is 67%. Impression: 1. Pharmacologic (Regadenoson) evaluation 2. Peak pharmacologic ECG with no ischemic changes. 3. There were no cardiac dysrhythmias pretest, during pharmacologic infusion, or recovery. 5. Rest and stress SPECT Cardiolite nuclear imaging demonstrate relative uniform tracer uptake and myocardial perfusion appearing within normal limits. 6. The gated Cardiolite study reports an LVEF of 67%. This note was generated with [employer] dictation software. It may contain incorrect words, spelling, and punctuation that were not noted in checking the note before signing. 12/23/24 1144 Date Delon Hamilton MD CC: Dr. Fatoumata Red MD Date Dictated: 12/23/24 1143 Date Transcribed: 12/23/24 114 Stubber: MARLIN Signed Normal [facility] Absolute lymphocyte countOrd ered By: Fatoumata Red on 11-28-2024 Lymphocytes Auto (Unsp spec) [#/Vol] 3.31 10*3/uL 0.83-4.51 [facility] Absolute neutrophil countOrd ered By: Fatoumata Red on 11-28-2024 Neutrophils (Bld) [#/Vol] 3.5 10*3/uL 2.0-7.7 [facility] Anion gap in Serum or Plasma Ordered By: Fatoumata Red on 11-28-2024 Anion gap [Moles/Vol] 11 mmol/L 5-15 [facility] Automated lymphocyte count a s percentage of total leukocytesOrdered By: Fatoumata Red on 11-28-2024 Lymphocytes/100 WBC Auto (Unsp spec) 44.1 % High 19-41 [facility] BUN/creatinine ratioOrdered By: Fatoumata Red on 11-28-2024 Urea nitrogen/Creatinine [Mass ratio] 16.4 mg/mg 10-20 [facility] Basophil percentageOrdered B y: Fatoumata Red on 11-28-2024 Basophils/100 WBC (Bld) 0.5 % 0-1 [facility] Bilirubin, totalOrdered By: Fatoumata Red on 11-28-2024 Bilirubin [Mass/Vol] 0.48 mg/dL 0.00-1.30 [facility] CBC W/Diff, Automatedon 11-09 Absolute Lymph 3.31 X10 3/uL Normal 0.83-4.51 [facility] Comment on above: Performed By: #### L 100.0100, L500.4050 #### [facility] [address] [place], [address] Absolute Neut 3.5 X10 3/uL Normal 2.0-7.7 [facility] Comment on above: Performed By: #### L 100.0100, L500.4050 #### [facility] [address] [place], [address] Basophils/100 WBC (Bld) 0.5 % Normal 0-1 [facility] Comment on above: Performed By: #### L 100.0100, L500.4050 #### [facility] [address] [place], [address] Eosinophils/100 WBC (Bld) 4.1 % Normal 0-5 [facility] Comment on above: Performed By: #### L 100.0100, L500.4050 #### [facility] [address] [place], [address] Erythrocyte distribution width (RBC) [Ratio] 14.7 % High 11.6-14.6 [facility] Comment on above: Performed By: #### L 100.0100, L500.4050 #### [facility] [address] [place], [address] Hematocrit (Bld) [Volume fraction] 38.5 % Low 40-54 [facility] Comment on above: Performed By: #### L 100.0100, L500.4050 #### [facility] [address] [place], [address] Hemoglobin (Bld) [Mass/Vol] 12.5 g/dL Low 13.0-16.5 [facility] Comment on above: Performed By: #### L 100.0100, L500.4050 #### [facility] [address] [place], [address] IG% 0.100 Normal 0.0-0.9 [facility] Comment on above: Result Comment: IG% - Immature Granulocytes (promyelocytes, myelocytes and metamyelocytes) > 1% indicates that a LEFT SHIFT is Present. Performed By: #### L 100.0100, L500.4050 #### [facility] [address] [place], [address] Lymphocytes/100 WBC (Bld) 44.1 % High 19-41 [facility] Comment on above: Performed By: #### L 100.0100, L500.4050 #### [facility] [address] [place], [address] MCH (RBC) [Entitic mass] 32.7 pg High 27.0-32.0 [facility] Comment on above: Performed By: #### L 100.0100, L500.4050 #### [facility] [address] [place], [address] MCHC (RBC) [Mass/Vol] 32.5 g/dL Normal 32-36 [facility] Comment on above: Performed By: #### L 100.0100, L500.4050 #### [facility] [address] [place], [address] MCV (RBC) [Entitic vol] 100.8 fL High 80-94 [facility] Comment on above: Performed By: #### L 100.0100, L500.4050 #### [facility] [address] [place], [address] Monocytes/100 WBC (Bld) 4.9 % Normal 0-10 [facility] Comment on above: Performed By: #### L 100.0100, L500.4050 #### [facility] [address] [place], [address] Neutrophils/100 WBC (Bld) 46.3 % Low 47-70 [facility] Comment on above: Performed By: #### L 100.0100, L500.4050 #### [facility] [address] [place], [address] Nucleated RBC (Bld) [#/Vol] 0 10*3/uL Normal 0-5 [facility] Comment on above: Performed By: #### L 100.0100, L500.4050 #### [facility] [address] [place], [address] Platelet mean volume (Bld) [Entitic vol] 10.9 fL Normal 6.2-12.0 [facility] Comment on above: Performed By: #### L 100.0100, L500.4050 #### [facility] [address] [place], [address] Platelets (Bld) [#/Vol] 213 10*3/uL Normal 150-450 [facility] Comment on above: Performed By: #### L 100.0100, L500.4050 #### [facility] [address] [place], [address] RBC (Bld) [#/Vol] 3.82 10*6/uL Low 4.6-6.2 [facility] Comment on above: Performed By: #### L 100.0100, L500.4050 #### [facility] [address] [place], [address] RDW SD 54.4 fl High 35.1-43.9 [facility] Comment on above: Performed By: #### L 100.0100, L500.4050 #### [facility] [address] [place], [address] WBC (Bld) [#/Vol] 7.5 10*3/uL Normal 4.4-11.0 [facility] Comment on above: Performed By: #### L 100.0100, L500.4050 #### [facility] [address] [place], [address] Carbon dioxide, total [Moles /volume] in Central venous bloodOrdered By: Fatoumata Red on 11-28-2024 CO2 [Moles/Vol] 24.8 mmol/L 21.0-32.0 [facility] Chloride assayOrdered By: Dario Red on 11-28-2024 Chloride [Moles/Vol] 103 mmol/L 98-108 [facility] Comprehensive Metabolic Prof ilon 11-28-2024 Albumin [Mass/Vol] 4.2 g/dL Normal 3.4-4.8 [facility] Comment on above: Performed By: #### L 100.0100, L500.4050 #### [facility] [address] [place], [address] Albumin/Globulin [Mass ratio] 1.4 {ratio} Normal 0.9-2.4 [facility] Comment on above: Performed By: #### L 100.0100, L500.4050 #### [facility] [address] [place], [address] ALK PHOS 72 U/L Normal 40-129 [facility] Comment on above: Performed By: #### L 100.0100, L500.4050 #### [facility] [address] [place], [address] ALT [Catalytic activity/Vol] 31 U/L Normal <=46 [facility] Comment on above: Performed By: #### L 100.0100, L500.4050 #### [facility] [address] [place], [address] AST [Catalytic activity/Vol] 18 U/L Normal <=37 [facility] Comment on above: Performed By: #### L 100.0100, L500.4050 #### [facility] [address] [place], [address] Bilirubin [Mass/Vol] 0.48 mg/dL Normal 0.00-1.30 [facility] Comment on above: Performed By: #### L 100.0100, L500.4050 #### [facility] [address] [place], [address] BUN/CRE 16.4 RATIO Normal 10-20 [facility] Comment on above: Performed By: #### L 100.0100, L500.4050 #### [facility] [address] [place], [address] Calcium [Mass/Vol] 8.7 mg/dL Normal 7.6-11.0 [facility] Comment on above: Performed By: #### L 100.0100, L500.4050 #### [facility] [address] [place], [address] Chloride [Moles/Vol] 103 mmol/L Normal 98-108 [facility] Comment on above: Performed By: #### L 100.0100, L500.4050 #### [facility] [address] [place], [address] CO2 [Moles/Vol] 24.8 mmol/L Normal 21.0-32.0 [facility] Comment on above: Performed By: #### L 100.0100, L500.4050 #### [facility] [address] [place], [address] Creatinine [Mass/Vol] 1.60 mg/dL High 0.70-1.20 [facility] Comment on above: Performed By: #### L 100.0100, L500.4050 #### [facility] [address] [place], [address] GAP 11 Normal 5-15 [facility] Comment on above: Performed By: #### L 100.0100, L500.4050 #### [facility] [address] [place], [address] GFR/1.73 sq M.predicted among non-blacks MDRD (S/P/Bld) [Vol rate/Area] 46 mL/min/{1.73_m2} Low >60 [facility] Comment on above: Result Comment: mL/m in/1.73m2 CKD-EPI Creatinine Equation (2020) Performed By: #### L 100.0100, L500.4050 #### [facility] [address] [place], [address] Globulin (S) [Mass/Vol] 2.9 g/dL Normal 2.2-4.2 [facility] Comment on above: Performed By: #### L 100.0100, L500.4050 #### [facility] [address] [place], [address] Glucose [Mass/Vol] 117 mg/dL High 70-99 [facility] Comment on above: Performed By: #### L 100.0100, L500.4050 #### [facility] [address] [place], [address] Potassium [Moles/Vol] 4.7 mmol/L Normal 3.3-5.1 [facility] Comment on above: Performed By: #### L 100.0100, L500.4050 #### [facility] [address] [place], [address] Sodium [Moles/Vol] 139 mmol/L Normal 133-145 [facility] Comment on above: Performed By: #### L 100.0100, L500.4050 #### [facility] [address] [place], [address] T PROT 7.0 g/dL Normal 5.9-8.4 [facility] Comment on above: Performed By: #### L 100.0100, L500.4050 #### [facility] [address] [place], [address] Urea nitrogen [Mass/Vol] 26 mg/dL High 4-19 [facility] Comment on above: Performed By: #### L 100.0100, L500.4050 #### [facility] [address] [place], [address] Eosinophil percentageOrdered By: Fatoumata Red on 11-28-2024 Eosinophils/100 WBC (Bld) 4.1 % 0-5 [facility] Erythrocyte distribution wid th ratioOrdered By: Fatoumata Red on 11-28-2024 Erythrocyte distribution width (RBC) [Ratio] 14.7 % High 11.6-14.6 [facility] Erythrocyte distribution wid th standard deviationOrdered By: Fatoumatamateo Red on 11-28-2024 Erythrocyte distribution width (RBC) [Ratio] 54.4 fl High 35.1-43.9 [facility] Glomerular filtration rate ( GFR) estimation/1.73 sq m using serum, plasma, or whole bOrdered By: Fatoumatamateo Red on 11-28-2024 GFR/1.73 sq M.predicted among non-blacks MDRD (S/P/Bld) [Vol rate/Area] 46 mL/min/{1.73_m2} Low >60 [facility] Comment on above: mL/min/1.73m2 CKD-EP I Creatinine Equation (2020) Hematocrit Auto (Bld) [Volum e fraction]Ordered By: Fatoumata Red on 11-28-2024 Hematocrit (Bld) [Volume fraction] 38.5 % Low 40-54 [facility] Hemoglobin measurementOrdere d By: Fatoumata Red on 11-28-2024 Hemoglobin (Bld) [Mass/Vol] 12.5 g/dL Low 13.0-16.5 [facility] Immature granulocytes/100 WB C Auto (Bld)Ordered By: Fatoumata Red on 11-28-2024 Immature granulocytes/100 WBC (Bld) 0.100 % 0.0-0.9 [facility] Comment on above: IG% - Immature Granu locytes (promyelocytes, myelocytes and metamyelocytes) > 1% indicates that a LEFT SHIFT is Present. Laboratory - Chemistry and C hemistry - challengeOrdered By: Fatoumata Red on 11-28-2024 AST [Catalytic activity/Vol] 18 U/L <38 [facility] MCV (mean corpuscular volume ) determinationOrdered By: Fatoumata Red on 11-28-2024 MCV (RBC) [Entitic vol] 100.8 fL High 80-94 [facility] Mean corpuscular hemoglobin (MCH) determinationOrdered By: Fatoumata Red on 11-28-2024 MCH (RBC) [Entitic mass] 32.7 pg High 27.0-32.0 [facility] Mean corpuscular hemoglobin concentration (MCHC) determinationOrdered By: Fatomuata Red on 11-28-2024 MCHC (RBC) [Mass/Vol] 32.5 g/dL 32-36 [facility] Mean platelet volume determi nationOrdered By: Fatoumata Red on 11-28-2024 Platelet mean volume (Bld) [Entitic vol] 10.9 fL 6.2-12.0 [facility] Monocyte percentageOrdered B y: Fatoumata Red on 11-28-2024 Monocytes/100 WBC (Bld) 4.9 % 0-10 [facility] Neutrophil percentageOrdered By: Fatoumata Red on 11-28-2024 Neutrophils/100 WBC (Bld) 46.3 % Low 47-70 [facility] Nucleated red blood cell per centageOrdered By: Fatoumata Red on 11-28-2024 Nucleated RBC/100 WBC (Bld) [Ratio] 0 % 0-5 [facility] Platelet countOrdered By: Dario Red on 11-28-2024 Platelets (Bld) [#/Vol] 213 10*3/uL 150-450 [facility] Potassium measurement (mass/ volume)Ordered By: Fatoumata Red on 11-28-2024 Potassium (Unsp spec) [Mass/Vol] 4.7 mmol/L 3.3-5.1 [facility] RBC Auto (Bld) [#/Vol]Ordere d By: Fatoumata Red on 11-28-2024 RBC (Bld) [#/Vol] 3.82 10*6/uL Low 4.6-6.2 [facility] Serum creatinine measurement (mass/volume)Ordered By: aFtoumata Red on 11-28-2024 Creatinine [Mass/Vol] 1.60 mg/dL High 0.70-1.20 [facility] Serum globulin measurementOr dered By: Fatoumata Red on 11-28-2024 Globulin (S) [Mass/Vol] 2.9 g/dL 2.2-4.2 [facility] Serum glucose measurement (m ass/volume)Ordered By: Fatoumata Red on 11-28-2024 Glucose [Mass/Vol] 117 mg/dL High 70-99 [facility] Serum or plasma alanine sanches otransferase (ALT) measurementOrdered By: Fatoumata Red on 11-28-2024 ALT [Catalytic activity/Vol] 31 U/L <47 [facility] Serum or plasma albumin bj urement (mass/volume)Ordered By: Fatoumata Red on 11-28-2024 Albumin [Mass/Vol] 4.2 g/dL 3.4-4.8 [facility] Serum or plasma albumin/glob ulin mass ratioOrdered By: Fatoumata Red on 11-28-2024 Albumin/Globulin [Mass ratio] 1.4 {ratio} 0.9-2.4 [facility] Serum or plasma alkaline cynthia sphatase measurementOrdered By: Fatoumata Red on 11-28-2024 ALP [Catalytic activity/Vol] 72 U/L 40-129 [facility] Serum or plasma calcium bj urement (mass/volume)Ordered By: Fatoumata Red on 11-28-2024 Calcium [Mass/Vol] 8.7 mg/dL 7.6-11.0 [facility] Serum or plasma urea nitroge n measurement (mass/volume)Ordered By: Fatoumata Red on 11-28-2024 Urea nitrogen [Mass/Vol] 26 mg/dL High 4-19 [facility] Sodium levelOrdered By: Tami Red on 11-28-2024 Sodium [Moles/Vol] 139 mmol/L 133-145 [facility] Total proteinOrdered By: Tal Red on 11-28-2024 Protein [Mass/Vol] 7.0 g/dL 5.9-8.4 [facility] White blood cell (WBC) count Ordered By: Fatoumata Red on 11-28-2024 WBC (Bld) [#/Vol] 7.5 10*3/uL 4.4-11.0 [facility] Cardiology Visit Reporton Cardiology Visit Report [facility] [address] [place] [address] OFFICE VISIT Date of Service: 06/19/24 MR#: [id number] Acct: [id number] Name: SHELBI GARCIA Rep #: [id number] : 1955 Provider: Dr. 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 Normal [facility] CBC W/Diff, Automatedon 10- 0-2023 Absolute Lymph 3.44 X10 3/uL Normal 0.83-4.51 [facility] Comment on above: Performed By: #### L 100.0100, L500.4100, L502.0250, L500.4050 #### [facility] [address] [place], [address] Absolute Neut 3.8 X10 3/uL Normal 2.0-7.7 [facility] Comment on above: Performed By: #### L 100.0100, L500.4100, L502.0250, L500.4050 #### [facility] [address] [place], [address] Basophils/100 WBC (Bld) 0.6 % Normal 0-1 [facility] Comment on above: Performed By: #### L 100.0100, L500.4100, L502.0250, L500.4050 #### [facility] [address] [place], [address] Eosinophils/100 WBC (Bld) 3.5 % Normal 0-5 [facility] Comment on above: Performed By: #### L 100.0100, L500.4100, L502.0250, L500.4050 #### [facility] [address] [place], [address] Erythrocyte distribution width (RBC) [Ratio] 14.6 % Normal 11.6-14.6 [facility] Comment on above: Performed By: #### L 100.0100, L500.4100, L502.0250, L500.4050 #### [facility] [address] [place], [address] Hematocrit (Bld) [Volume fraction] 39.7 % Low 40-54 [facility] Comment on above: Performed By: #### L 100.0100, L500.4100, L502.0250, L500.4050 #### [facility] [address] [place], [address] Hemoglobin (Bld) [Mass/Vol] 12.5 g/dL Low 13.0-16.5 [facility] Comment on above: Performed By: #### L 100.0100, L500.4100, L502.0250, L500.4050 #### [facility] [address] [place], [address] IG% 0.200 Normal 0.0-0.9 [facility] Comment on above: Result Comment: IG% - Immature Granulocytes (promyelocytes, myelocytes and metamyelocytes) > 1% indicates that a LEFT SHIFT is Present. Performed By: #### L 100.0100, L500.4100, L502.0250, L500.4050 #### [facility] [address] [place], [address] Lymphocytes/100 WBC (Bld) 42.6 % High 19-41 [facility] Comment on above: Performed By: #### L 100.0100, L500.4100, L502.0250, [id number] #### [facility] [address] [place], [address] MCH (RBC) [Entitic mass] 30.8 pg Normal 27.0-32.0 [facility] Comment on above: Performed By: #### L 100.0100, L500.4100, L502.0250, L500.4050 #### [facility] [address] [place], [address] MCHC (RBC) [Mass/Vol] 31.5 g/dL Low 32-36 [facility] Comment on above: Performed By: #### L 100.0100, L500.4100, L502.0250, L500.4050 #### [facility] [address] [place], [address] MCV (RBC) [Entitic vol] 97.8 fL High 80-94 [facility] Comment on above: Performed By: #### L 100.0100, L500.4100, L502.0250, L500.4050 #### [facility] [address] [place], [address] Monocytes/100 WBC (Bld) 5.9 % Normal 0-10 [facility] Comment on above: Performed By: #### L 100.0100, L500.4100, L502.0250, L500.4050 #### [facility] [address] [place], [address] Neutrophils/100 WBC (Bld) 47.2 % Normal 47-70 [facility] Comment on above: Performed By: #### L 100.0100, L500.4100, L502.0250, L500.4050 #### [facility] [address] [place], [address] Nucleated RBC (Bld) [#/Vol] 0 10*3/uL Normal 0-5 [facility] Comment on above: Performed By: #### L 100.0100, L500.4100, L502.0250, L500.4050 #### [facility] [address] [place], [address] Platelet mean volume (Bld) [Entitic vol] 11.5 fL Normal 6.2-12.0 [facility] Comment on above: Performed By: #### L 100.0100, L500.4100, L502.0250, L500.4050 #### [facility] [address] [place], [address] Platelets (Bld) [#/Vol] 190 10*3/uL Normal 150-450 [facility] Comment on above: Performed By: #### L 100.0100, L500.4100, L502.0250, L500.4050 #### [facility] [address] [place], [address] RBC (Bld) [#/Vol] 4.06 10*6/uL Low 4.6-6.2 [facility] Comment on above: Performed By: #### L 100.0100, L500.4100, L502.0250, L500.4050 #### [facility] [address] [place], [address] RDW SD 52.7 fl High 35.1-43.9 [facility] Comment on above: Performed By: #### L 100.0100, L500.4100, L502.0250, [id number] #### [facility] [address] [place], [address] WBC (Bld) [#/Vol] 8.1 10*3/uL Normal 4.4-11.0 [facility] Comment on above: Performed By: #### L 100.0100, L500.4100, L502.0250, L500.4050 #### [facility] [address] [place], [address] Comprehensive Metabolic Prof ilon 01-18-2024 Albumin [Mass/Vol] 4.3 g/dL Normal 3.2-5.0 [facility] Comment on above: Performed By: #### L 100.0100, L500.4100, L502.0250, L500.4050 #### [facility] [address] [place], [address] Albumin/Globulin [Mass ratio] 1.2 {ratio} Normal 0.9-2.4 [facility] Comment on above: Performed By: #### L 100.0100, L500.4100, L502.0250, L500.4050 #### [facility] [address] [place], [address] ALK P 78 U/L Normal 45-117 [facility] Comment on above: Performed By: #### L 100.0100, L500.4100, L502.0250, L500.4050 #### [facility] [address] [place], [address] ALT [Catalytic activity/Vol] 25 U/L Normal 16-61 [facility] Comment on above: Performed By: #### L 100.0100, L500.4100, L502.0250, L500.4050 #### [facility] [address] [place], [address] AST [Catalytic activity/Vol] 17 U/L Normal 15-37 [facility] Comment on above: Performed By: #### L 100.0100, L500.4100, L502.0250, L500.4050 #### [facility] [address] [place], [address] Bilirubin [Mass/Vol] 0.50 mg/dL Normal 0.20-1.00 [facility] Comment on above: Result Comment: For patients on eltrombopag therapy, use of [facility] TBIL is not recommended. Performed By: #### L 100.0100, L500.4100, L502.0250, L500.4050 #### [facility] [address] [place], [address] BUN/CRE 20.2 RATIO High 10-20 [facility] Comment on above: Performed By: #### L 100.0100, L500.4100, L502.0250, L500.4050 #### [facility] [address] [place], [address] CA,Total 9.2 mg/dL Normal 8.5-10.1 [facility] Comment on above: Performed By: #### L 100.0100, L500.4100, L502.0250, L500.4050 #### [facility] [address] [place], [address] Chloride [Moles/Vol] 104 mmol/L Normal 98-107 [facility] Comment on above: Performed By: #### L 100.0100, L500.4100, L502.0250, L500.4050 #### [facility] [address] [place], [address] CO2 [Moles/Vol] 30.0 mmol/L Normal 21.0-32.0 [facility] Comment on above: Performed By: #### L 100.0100, L500.4100, L502.0250, L500.4050 #### [facility] [address] [place], [address] Creatinine [Mass/Vol] 1.83 mg/dL High 0.70-1.30 [facility] Comment on above: Result Comment: The validity of the calculated GFR GFRAA in patients over 70 years has not been determined. Clinical correlation is essential. Performed By: #### L 100.0100, L500.4100, L502.0250, L500.4050 #### [facility] [address] [place], [address] EST GFR - AA 47 mL/min Low >60 [facility] Comment on above: Result Comment: Afri can [place] Citizen GFR Calc Performed By: #### L 100.0100, L500.4100, L502.0250, L500.4050 #### [facility] [address] [place], [address] GAP 6 Normal 5-15 [facility] Comment on above: Performed By: #### L 100.0100, L500.4100, L502.0250, L500.4050 #### [facility] [address] [place], [address] GFR/1.73 sq M.predicted among non-blacks MDRD (S/P/Bld) [Vol rate/Area] 39 mL/min/{1.73_m2} Low >60 [facility] Comment on above: Result Comment: Non- GFR Calc Performed By: #### L 100.0100, L500.4100, L502.0250, L500.4050 #### [facility] [address] [place], [address] Globulin (S) [Mass/Vol] 3.7 g/dL Normal 2.2-4.2 [facility] Comment on above: Performed By: #### L 100.0100, L500.4100, L502.0250, L500.4050 #### [facility] [address] [place], [address] Glucose [Mass/Vol] 152 mg/dL High 74-106 [facility] Comment on above: Result Comment: Fast ing Glucose result greater than or equal to 126 mg/dL suggests DIABETES MELLITUS per A.D.A. criteria. Performed By: #### L 100.0100, L500.4100, L502.0250, L500.4050 #### [facility] [address] [place], [address] Potassium [Moles/Vol] 4.7 mmol/L Normal 3.5-5.1 [facility] Comment on above: Performed By: #### L 100.0100, L500.4100, L502.0250, L500.4050 #### [facility] [address] [place], [address] Sodium [Moles/Vol] 139 mmol/L Normal 136-145 [facility] Comment on above: Performed By: #### L 100.0100, L500.4100, L502.0250, L500.4050 #### [facility] [address] [place], [address] T PROT 8.0 g/dL Normal 6.4-8.2 [facility] Comment on above: Performed By: #### L 100.0100, L500.4100, L502.0250, L500.4050 #### [facility] [address] [place], [address] Urea nitrogen [Mass/Vol] 37 mg/dL High 7-18 [facility] Comment on above: Performed By: #### L 100.0100, L500.4100, L502.0250, L500.4050 #### [facility] [address] [place], [address] Lipid Profileon 01-18-2024 Cholesterol [Mass/Vol] 110 mg/dL Normal 200 [facility] Comment on above: Result Comment: <200 mg/dL Desirable 200-240 mg/dL Borderline >240 mg/dL High Risk Performed By: #### L 100.0100, L500.4100, L502.0250, L500.4050 #### [facility] [address] [place], [address] Cholesterol in HDL [Mass/Vol] 39 mg/dL Low [facility] Comment on above: Result Comment: The drugs N-Acetylcysteine and Metamizole may falsely depress this assay. Reference Range HDL <40 mg/dL Low HDL Cholesterol HDL >or= 60 mg/dL High HDL Cholesterol Performed By: #### L 100.0100, L500.4100, L502.0250, L500.4050 #### [facility] [address] [place], [address] Cholesterol in LDL [Mass/Vol] 50 mg/dL Normal 0-130 [facility] Comment on above: Performed By: #### L 100.0100, L500.4100, L502.0250, L500.4050 #### [facility] [address] [place], [address] Cholesterol in VLDL [Mass/Vol] 21 mg/dL Normal 5-40 [facility] Comment on above: Performed By: #### L 100.0100, L500.4100, L502.0250, L500.4050 #### [facility] [address] [place], [address] Triglyceride [Mass/Vol] 106 mg/dL Normal [facility] Comment on above: Result Comment: The drugs N-Acetylcysteine and Metamizole may falsely depress this assay. Serum Triglycerides Reference Interval Normal <150 mg/dL Borderline high 150 - 199 mg/dL High 200 - 499 mg/dL Very High > or = 500 mg/dL Performed By: #### L 100.0100, L500.4100, L502.0250, L500.4050 #### [facility] [address] [place], [address] Microalb:Creat Ratio,Random URon 10-10-2024 MALB:CRE TNP Normal <30 mg/g CRE [facility] Comment on above: Performed By: #### L 100.0100, L500.4100, L502.0250, L500.4050 #### [facility] [address] [place], [address] MICROALBUMIN,UR 25.0 mg/L Normal NO RANGE EST. [facility] Comment on above: Performed By: #### L 100.0100, L500.4100, L502.0250, L500.4050 #### [facility] [address] [place], [address] UR CREAT < 13.00 Normal NO RANGE EST. [facility] Comment on above: Performed By: #### L 100.0100, L500.4100, L502.0250, L500.4050 #### [facility] [address] [place], [address] Absolute lymphocyte countOrd ered By: Monse North on 03-06-2023 Lymphocytes Auto (Unsp spec) [#/Vol] 4.78 10*3/uL 0.83-4.51 [facility] Basophil percentageOrdered B y: Monse North on 03-06-2023 Basophils/100 WBC (Bld) 0.6 % 0-1 [facility] Chloride [Moles/Vol] 106 mmol/L 98-107 [facility] Eosinophils/100 WBC (Bld) 2.9 % 0-5 [facility] Glucose [Mass/Vol] 155 mg/dL 74-106 [facility] Comment on above: Fasting Glucose resu lt greater than or equal to 126 mg/dL suggests DIABETES MELLITUS per A.D.A. criteria. Neutrophils (Bld) [#/Vol] 3.9 10*3/uL 2.0-7.7 [facility] Neutrophils/100 WBC (Bld) 41.4 % 47-70 [facility] Potassium [Moles/Vol] 4.6 mmol/L 3.5-5.1 [facility] Comment on above: Moderate Hemolysis, Result may be falsely increased. Sodium [Moles/Vol] 138 mmol/L 136-145 [facility] WBC (Bld) [#/Vol] 9.5 10*3/uL 4.4-11.0 [facility] Blood erythrocytes count (nu mber/volume)Ordered By: Monse North on 03-06-2023 RBC (Bld) [#/Vol] 4.98 10*6/uL 4.6-6.2 [facility] Blood hemoglobin measurement (mass/volume)Ordered By: Monse North on 03-06-2023 Hemoglobin (Bld) [Mass/Vol] 15.1 g/dL 13.0-16.5 [facility] Blood lymphocytes/100 leukoc ytesOrdered By: Monse North on 03-06-2023 Lymphocytes/100 WBC (Bld) 50.3 % 19-41 [facility] Blood monocytes/100 leukocyt esOrdered By: Monse North on 03-06-2023 Monocytes/100 WBC (Bld) 4.7 % 0-10 [facility] Blood platelet mean volumeOr dered By: Monse North on 03-06-2023 Platelet mean volume (Bld) [Entitic vol] 11.2 fL 6.2-12.0 [facility] Determination of erythrocyte mean corpuscular volume (MCV)Ordered By: Monse North on 03-06-2023 MCV (RBC) [Entitic vol] 96.4 fL 80-94 [facility] Hematocrit Auto (Bld) [Volum e fraction]Ordered By: Monse North on 03-06-2023 Hematocrit (Bld) [Volume fraction] 48.0 % 40-54 [facility] - Chemistry and C hemistry - challengeOrdered By: Monse North on 03-06-2023 CO2 [Moles/Vol] 28.0 mmol/L 21.0-32.0 [facility] Urea nitrogen/Creatinine [Mass ratio] 19.4 mg/mg 10-20 [facility] - Hematology and Cell countsOrdered By: Monse North on 03-06-2023 Erythrocyte distribution width (RBC) [Entitic vol] 49.2 fL 35.1-43.9 [facility] Erythrocyte distribution width (RBC) [Ratio] 13.8 % 11.6-14.6 [facility] Immature granulocytes/100 WBC (Bld) 0.100 % 0.0-0.9 [facility] Comment on above: IG% - Immature Granu locytes (promyelocytes, myelocytes and metamyelocytes) > 1% indicates that a LEFT SHIFT is Present. MCH (RBC) [Entitic mass] 30.3 pg 27.0-32.0 [facility] Nucleated RBC/100 WBC (Bld) [Ratio] 0 % 0-5 [facility] MCHC Auto (RBC) [Mass/Vol]Or dered By: Monse North on 03-06-2023 MCHC (RBC) [Mass/Vol] 31.5 g/dL 32-36 [facility] No Panel InformationOrdered By: Monse North on 03-06-2023 Estimated GFR (MDRD) Amer 57 mL/min >60 [facility] Comment on above: GFR Calc Estimated GFR (MDRD) Non-Af Amer 47 mL/min >60 [facility] Comment on above: Non- GFR Calc Platelets bldOrdered By: Mikie North on 03-06-2023 Platelets (Bld) [#/Vol] 183 10*3/uL 150-450 [facility] Serum or plasma calcium bj urement (mass/volume)Ordered By: Monse North on 03-06-2023 Calcium [Mass/Vol] 8.4 mg/dL 8.5-10.1 [facility] Serum or plasma creatinine m easurement (mass/volume)Ordered By: Monse North on 03-06-2023 Creatinine [Mass/Vol] 1.55 mg/dL 0.70-1.30 [facility] Comment on above: The validity of the calculated GFR & GFRAA in patients over 70 years has not been determined. Clinical correlation is essential. Serum or plasma urea nitroge n measurement (mass/volume)Ordered By: Monse Norht on 03-06-2023 Urea nitrogen [Mass/Vol] 30 mg/dL 7-18 [facility] Thin prep Papanicolaou smear with manual screeningOrdered By: Monse North on 03-06-2023 Thin prep Papanicolaou smear with manual screening 4 5-15 [facility] Absolute lymphocyte countOrd ered By: Warren Olivarez on 02-01-2023 Lymphocytes Auto (Unsp spec) [#/Vol] 4.13 10*3/uL 0.83-4.51 [facility] Basophil percentageOrdered B y: Warren Olivarez on 02-01-2023 Basophils/100 WBC (Bld) 0.6 % 0-1 [facility] Eosinophils/100 WBC (Bld) 2.6 % 0-5 [facility] Neutrophils (Bld) [#/Vol] 4.2 10*3/uL 2.0-7.7 [facility] Neutrophils/100 WBC (Bld) 45.6 % 47-70 [facility] WBC (Bld) [#/Vol] 9.3 10*3/uL 4.4-11.0 [facility] Blood erythrocytes count (nu mber/volume)Ordered By: Warren Olivarez on 02-01-2023 RBC (Bld) [#/Vol] 4.83 10*6/uL 4.6-6.2 [facility] Blood hemoglobin measurement (mass/volume)Ordered By: Warren Olivarez on 02-01-2023 Hemoglobin (Bld) [Mass/Vol] 14.6 g/dL 13.0-16.5 [facility] Blood lymphocytes/100 leukoc ytesOrdered By: Warren Olivarez on 02-01-2023 Lymphocytes/100 WBC (Bld) 44.6 % 19-41 [facility] Blood monocytes/100 leukocyt esOrdered By: Warren Olivarez on 02-01-2023 Monocytes/100 WBC (Bld) 6.3 % 0-10 [facility] Blood platelet mean volumeOr dered By: Warren Olivarez on 02-01-2023 Platelet mean volume (Bld) [Entitic vol] 11.2 fL 6.2-12.0 [facility] Determination of erythrocyte mean corpuscular volume (MCV)Ordered By: Warren Olivarez on 02-01-2023 MCV (RBC) [Entitic vol] 97.1 fL 80-94 [facility] Erythrocyte sedimentation ra teOrdered By: Warren Olivarez on 02-01-2023 ESR (Bld) [Velocity] 63 mm/h 0-20 [facility] Hematocrit Auto (Bld) [Volum e fraction]Ordered By: Warren Olivarez on 02-01-2023 Hematocrit (Bld) [Volume fraction] 46.9 % 40-54 [facility] - Hematology and Cell countsOrdered By: Warren Olivarez on 02-01-2023 Erythrocyte distribution width (RBC) [Entitic vol] 51.3 fL 35.1-43.9 [facility] Erythrocyte distribution width (RBC) [Ratio] 14.2 % 11.6-14.6 [facility] Immature granulocytes/100 WBC (Bld) 0.300 % 0.0-0.9 [facility] Comment on above: IG% - Immature Granu locytes (promyelocytes, myelocytes and metamyelocytes) > 1% indicates that a LEFT SHIFT is Present. MCH (RBC) [Entitic mass] 30.2 pg 27.0-32.0 [facility] Nucleated RBC/100 WBC (Bld) [Ratio] 0 % 0-5 [facility] MCHC Auto (RBC) [Mass/Vol]Or dered By: Warren Olivarez on 02-01-2023 MCHC (RBC) [Mass/Vol] 31.1 g/dL 32-36 [facility] Platelets bldOrdered By: Hubert Olivarez on 02-01-2023 Platelets (Bld) [#/Vol] 194 10*3/uL 150-450 [facility] Serum or plasma C reactive p rotein measurement (mass/volume)Ordered By: Warren Olivarez on 02-01-2023 CRP [Mass/Vol] 8.48 mg/L 0.0-3.0 [facility] Comment on above: C-Reactive Protein ( CRP) provides useful information for thediagnosis, therapy and monitoring of inflammatory processesand associated diseases. For the evaluation of Relative Riskfor Cardiovascular Disease, a High Sensitivity CRP (HSCRP)should be ordered. Absolute lymphocyte countOrd ered By: Fatoumata Red on 01-13-2023 Lymphocytes Auto (Unsp spec) [#/Vol] 2.43 10*3/uL 0.83-4.51 [facility] Basophil percentageOrdered B y: Fatoumata Red on 01-13-2023 Basophils/100 WBC (Bld) 0.8 % 0-1 [facility] Bilirubin [Mass/Vol] 0.40 mg/dL 0.20-1.00 [facility] Comment on above: For patients on eltr ombopag therapy, use of [facility] TBIL is not recommended. Chloride [Moles/Vol] 107 mmol/L 98-107 [facility] Cholesterol [Mass/Vol] 104 mg/dL <200 [facility] Comment on above: <200 mg/dL Desirable 200-240 mg/dL Borderline >240 mg/dL High Risk Eosinophils/100 WBC (Bld) 2.4 % 0-5 [facility] Glucose [Mass/Vol] 189 mg/dL 74-106 [facility] Comment on above: Fasting Glucose resu lt greater than or equal to 126 mg/dL suggests DIABETES MELLITUS per A.D.A. criteria. Neutrophils (Bld) [#/Vol] 4.6 10*3/uL 2.0-7.7 [facility] Neutrophils/100 WBC (Bld) 58.7 % 47-70 [facility] Potassium [Moles/Vol] 3.9 mmol/L 3.5-5.1 [facility] Protein [Mass/Vol] 7.5 g/dL 6.4-8.2 [facility] Sodium [Moles/Vol] 138 mmol/L 136-145 [facility] Triglyceride [Mass/Vol] 100 mg/dL <199 [facility] Comment on above: The drugs N-Acetylcy steine and Metamizole may falsely depress this assay.Serum Triglycerides Reference Interval Normal <150 mg/dL Borderline high 150 - 199 mg/dL High 200 - 499 mg/dL Very High > or = 500 mg/dL WBC (Bld) [#/Vol] 7.8 10*3/uL 4.4-11.0 [facility] Blood erythrocytes count (nu mber/volume)Ordered By: Fatoumata Red on 01-13-2023 RBC (Bld) [#/Vol] 4.75 10*6/uL 4.6-6.2 [facility] Blood hemoglobin measurement (mass/volume)Ordered By: Fatoumata Red on 01-13-2023 Hemoglobin (Bld) [Mass/Vol] 14.7 g/dL 13.0-16.5 [facility] Blood lymphocytes/100 leukoc ytesOrdered By: Fatoumata Red on 01-13-2023 Lymphocytes/100 WBC (Bld) 31.2 % 19-41 [facility] Blood monocytes/100 leukocyt esOrdered By: Fatoumata Red on 01-13-2023 Monocytes/100 WBC (Bld) 6.6 % 0-10 [facility] Blood platelet mean volumeOr dered By: Fatoumata Red on 01-13-2023 Platelet mean volume (Bld) [Entitic vol] 10.9 fL 6.2-12.0 [facility] Determination of erythrocyte mean corpuscular volume (MCV)Ordered By: Fatoumata Red on 01-13-2023 MCV (RBC) [Entitic vol] 97.3 fL 80-94 [facility] Hematocrit Auto (Bld) [Volum e fraction]Ordered By: Fatoumata Red on 01-13-2023 Hematocrit (Bld) [Volume fraction] 46.2 % 40-54 [facility] - Chemistry and C hemistry - challengeOrdered By: Fatoumata Red on 01-13-2023 ALP [Catalytic activity/Vol] 98 U/L 45-117 [facility] ALT [Catalytic activity/Vol] 19 U/L 16-61 [facility] CO2 [Moles/Vol] 25.0 mmol/L 21.0-32.0 [facility] Globulin (S) [Mass/Vol] 4.0 g/dL 2.2-4.2 [facility] Urea nitrogen/Creatinine [Mass ratio] 20.4 mg/mg 10-20 [facility] - Hematology and Cell countsOrdered By: Fatoumata Red on 01-13-2023 Erythrocyte distribution width (RBC) [Entitic vol] 50.3 fL 35.1-43.9 [facility] Erythrocyte distribution width (RBC) [Ratio] 13.8 % 11.6-14.6 [facility] Immature granulocytes/100 WBC (Bld) 0.300 % 0.0-0.9 [facility] Comment on above: IG% - Immature Granu locytes (promyelocytes, myelocytes and metamyelocytes) > 1% indicates that a LEFT SHIFT is Present. MCH (RBC) [Entitic mass] 30.9 pg 27.0-32.0 [facility] Nucleated RBC/100 WBC (Bld) [Ratio] 0 % 0-5 [facility] MCHC Auto (RBC) [Mass/Vol]Or dered By: Fatoumata Red on 01-13-2023 MCHC (RBC) [Mass/Vol] 31.8 g/dL 32-36 [facility] No Panel InformationOrdered By: Fatoumata Red on 01-13-2023 Estimated GFR (MDRD) Amer 55 mL/min >60 [facility] Comment on above: GFR Calc Estimated GFR (MDRD) Non-Af Amer 45 mL/min >60 [facility] Comment on above: Non- GFR Calc Platelets bldOrdered By: Tal Red on 01-13-2023 Platelets (Bld) [#/Vol] 216 10*3/uL 150-450 [facility] Serum or plasma albumin bj urement (mass/volume)Ordered By: Fatoumata Red on 01-13-2023 Albumin [Mass/Vol] 3.5 g/dL 3.2-5.0 [facility] Serum or plasma albumin/glob ulin mass ratioOrdered By: Fatoumata Red on 01-13-2023 Albumin/Globulin [Mass ratio] 0.9 {ratio} 0.9-2.4 [facility] Serum or plasma calcium bj urement (mass/volume)Ordered By: Fatoumata Red on 01-13-2023 Calcium [Mass/Vol] 8.7 mg/dL 8.5-10.1 [facility] Serum or plasma cholesterol in HDL measurement (mass/volume)Ordered By: Fatoumata Red on 01-13-2023 Cholesterol in HDL [Mass/Vol] 36 mg/dL >40 [facility] Comment on above: The drugs N-Acetylcy steine and Metamizole may falsely depress this assay. Reference Range HDL <40 mg/dL Low HDL Cholesterol HDL >or= 60 mg/dL High HDL Cholesterol Serum or plasma cholesterol in VLDL measurement (mass/volume)Ordered By: Fatoumata Red on 01-13-2023 Cholesterol in VLDL [Mass/Vol] 20 mg/dL 5-40 [facility] Serum or plasma creatinine m easurement (mass/volume)Ordered By: Fatoumata Red on 01-13-2023 Creatinine [Mass/Vol] 1.62 mg/dL 0.70-1.30 [facility] Comment on above: The validity of the calculated GFR & GFRAA in patients over 70 years has not been determined. Clinical correlation is essential. Serum or plasma low density lipoprotein (LDL) cholesterol measurement (mass/volume)Ordered By: Fatoumata Red on 01-13-2023 Cholesterol in LDL [Mass/Vol] 48 mg/dL 0-130 [facility] Serum or plasma urea nitroge n measurement (mass/volume)Ordered By: Fatoumata Red on 01-13-2023 Urea nitrogen [Mass/Vol] 33 mg/dL 7-18 [facility] Thin prep Papanicolaou smear with manual screeningOrdered By: Fatoumata Red on 01-13-2023 Thin prep Papanicolaou smear with manual screening 10 U/L 15-37 [facility] Thin prep Papanicolaou smear with manual screening 6 5-15 [facility] Urine creatinine measurement (mass/volume)Ordered By: Fatoumata Red on 01-13-2023 Creatinine (U) [Mass/Vol] 42.40 mg/dL NO RANGE EST. [facility] Urine protein measurement (m ass/volume)Ordered By: Fatoumata Red on 01-13-2023 Protein (U) [Mass/Vol] 9.8 mg/dL 0.0-11.8 [facility] Urine protein/creatinine mas s ratioOrdered By: Fatoumata Red on 01-13-2023 Protein/Creatinine (U) [Mass ratio] 231 mg/g CRE 0-200 [facility] Whole blood hemoglobin A1c/t otal hemoglobin ratio (mass fraction)Ordered By: Fatoumata Red on 01-13-2023 HbA1c (Bld) [Mass fraction] 6.9 % 3.8-5.6 [facility] Comment on above: Normal < 5.7 % Predi abetic 5.7 - 6.4 % Diabetic >or= 6.5 % Please note range changes. Basophil percentageon 2021 Basophil percentage 3.5 mg/dL 2.5-4.9 [facility] Work Phone: Chloride [Moles/Vol] 104 mmol/L 98-[address] [facility] [facility] Work Phone: Glucose [Mass/Vol] 217 mg/dL 74-106 [facility] Work Phone: Comment on above: Glucose result great er than or equal to 200 mg/dLsuggests DIABETES MELLITUS per A.D.A. criteria. Potassium [Moles/Vol] 4.6 mmol/L 3.5-5.1 [place] [facility] Work Phone: Sodium [Moles/Vol] 137 mmol/L 136-145 [facility] Work Phone: Laboratory - Chemistry and C hemistry - challengeon 09-10-2021 CO2 [Moles/Vol] 27.0 mmol/L 21.0-32.0 [facility] Work Phone: Urea nitrogen/Creatinine [Mass ratio] 13.1 mg/mg 10-20 [facility] Work Phone: No Panel Informationon 09-10 Estimated GFR (MDRD) Amer 53 mL/min >60 [facility] Work Phone: Comment on above: GFR Calc Estimated GFR (MDRD) Non-Af Amer 43 mL/min >60 [facility] Work Phone: Comment on above: Non- GFR Calc Serum or plasma albumin bj urement (mass/volume)on 09-10-2021 Albumin [Mass/Vol] 4.0 g/dL 3.2-5.0 [facility] Work Phone: Serum or plasma calcium bj urement (mass/volume)on 09-10-2021 Calcium [Mass/Vol] 8.6 mg/dL 8.5-10.1 [facility] Work Phone: Serum or plasma creatinine m easurement (mass/volume)on 09-10-2021 Creatinine [Mass/Vol] 1.68 mg/dL 0.70-1.30 [facility] Work Phone: Comment on above: The validity of the calculated GFR & GFRAA in patients over 70 years has not been determined. Clinical correlation is essential. Serum or plasma urea nitroge n measurement (mass/volume)on 09-10-2021 Urea nitrogen [Mass/Vol] 22 mg/dL 7-18 [facility] Work Phone: Urine creatinine measurement (mass/volume)on 09-02-2021 Creatinine (U) [Mass/Vol] 78.50 mg/dL NO RANGE EST. [facility] Work Phone: Urine protein measurement (m ass/volume)on 09-02-2021 Protein (U) [Mass/Vol] 15.7 mg/dL 0.0-11.8 [facility] Work Phone: Urine protein/creatinine mas s ratioon 09-02-2021 Protein/Creatinine (U) [Mass ratio] 200 mg/g CRE 0-200 [facility] Work Phone: CNPNon 09-01-2021 CNPN Telephone (HEMAWS) SHELBI GARCIA ([id number]) 1955 Date Time Provider Department 09/01/21 JP DENIS During your visit today, we recorded the following information about you: Sue Hannon 09/01/2021 10:[address] Soler's office at [facility] called requesting the last office note from [...] - Fully Assessed Reason for Visit: Information [1328] Prescriptions as of 09/01/2021 - apixaban (ELIQUIS) [...] 1 tablet by mouth once daily. - M-Elsinje-P7 Sniz-Jvxqao-L50 3-35-2 mg tab or Capsule Take 1 [...] Encounter Status:Closed by NANCY QUEZADA on 09/01/21 Normal [facility] CNPIzzy 07-19-2021 CNPN Telephone (nCrypted Cloud) SHELBI GARCIA ([id number]) 1955 M Date Time Provider Department 07/19/21 [...] lab work to Dr. Dasia Helton his financial professional at the [facility]. DO Ronel Fernandes LPN 07/19/2021 [...] 1 tablet by mouth once daily. - U-Zshkfgj-Z8 Sywb-Ltqerz-L00 3-35-2 mg tab or Capsule Take 1 [...] by RONEL ROSEN LPN on 07/19/21 [facility] Bas[facility] 2021 Bilirubin [Mass/Vol] 0.50 mg/dL 0.20-1.00 [facility] Work Phone: Comment on above: For patients on eltr ombopag therapy, use of [facility] TBIL is not recommended. Cholesterol [Mass/Vol] 63 mg/dL <200 [facility] Work Phone: Comment on above: <200 mg/dL Desirable 200-240 mg/dL Borderline >240 mg/dL High Risk Protein [Mass/Vol] 7.5 g/dL 6.4-8.2 [facility] Work Phone: Triglyceride [Mass/Vol] 93 mg/dL [facility] Work Phone: Comment on above: The drugs N-Acetylcy steine and Metamizole may falsely depress this assay.Serum Triglycerides Reference Interval Normal <150 mg/dL Borderline high 150 - 199 mg/dL High 200 - 499 mg/dL Very High > or = 500 mg/dL CBC W Ordered Manual Differe ntial panel (Bld)on 07-15-2021 Basophils (Bld) [#/Vol] 10*3/uL Normal <0.11 C [facility] Comment on above: Order Comment: Speci men Type: BLOOD SPECIMENOrdering Facility: [facility] Address: [address] [place] [address] Performed By: #### 5 7782-5 ####[facility]ENTERLIA [id number] [address] LABCLIA [id number] [place] [address] [place]#### STFREV ####[facility] LABCLIA [id number] [place] [address] [place] Basophils/100 WBC (Bld) 0.0 % Normal C [facility] Comment on above: Order Comment: Speci men Type: BLOOD SPECIMENOrdering Facility: [facility] Address: [address] [place], [place] [address] Performed By: #### 5 7782-5 ####[facility] [id number] [address] STATES OF [facility] LABCLIA [id number] [place] [address] [place]#### STFREV ####[facility] LABCLIA [id number] [place] [address] [place] Differential cell count method Nom (Bld) Auto Normal [facility] Comment on above: Order Comment: Speci men Type: BLOOD SPECIMENOrdering Facility: [facility] Address: [address] [place], [place] [address] Performed By: #### 5 7782-5 ####[facility]CL[facility] [id number] [address] LABCLIA [id number] [place] [address] [place]#### STFREV ####[facility] LABCLIA [id number] [place] [address] [place] Eosinophils (Bld) [#/Vol] 0.24 10*3/uL Normal <0.46 [facility] Comment on above: Order Comment: Speci men Type: BLOOD SPECIMENOrdering Facility: [facility] Address: [address] [place] [address] Performed By: #### 5 7782-5 ####[facility] [id number] [address] LABCLIA [id number] [place] [address] [place]#### STFREV ####[facility] LABIA [id number] [place] [address] [place] Eosinophils/100 WBC (Bld) 10.3 % Normal [facility] Comment on above: Order Comment: Speci men Type: BLOOD SPECIMENOrdering Facility: [facility] Address: [address] [place] [address] Performed By: #### 5 7782-5 ####[facility]IA [id number] [address] OF [facility] LABCLIA [id number] [place] [address] [place]#### STFREV ####[facility] LABCLIA [id number] [id number] [address] [place] Erythrocyte distribution width (RBC) [Ratio] 13.4 % Normal 11.5-15.0 [facility] Comment on above: Order Comment: Speci men Type: BLOOD SPECIMENOrdering Facility: [facility] Address: [address] [place], [place] [address] Performed By: #### 5 7782-5 ####[facility]ITALWNCLIA [id number] [address] LABCLIA [id number] [address] [place]#### STFREV ####[facility] LABCLIA [id number] [place] [address] [place] Hematocrit (Bld) [Volume fraction] 36.1 % Low 39.0-51.0 [facility] Comment on above: Order Comment: Speci men Type: BLOOD SPECIMENOrdering Facility: [facility] Address: [address] [place], [place] [address] Performed By: #### 5 7782-5 ####[facility] [id number] [address] LABCLIA [id number] [address] [place]#### STFREV ####[facility] LABCLIA [id number] [place] [address] [place] Hemoglobin (Bld) [Mass/Vol] 12.2 g/dL Low 13.0-17.0 [facility] Comment on above: Order Comment: Speci men Type: BLOOD SPECIMENOrdering Facility: [facility] Address: [address] [place], [place] [address] Performed By: #### 5 7782-5 ####[facility]ITALNCLIA [id number] [place] [id number] [place] [facility] LABCLIA [id number] [place] [address] [place]#### STFREV ####[facility] LABCLIA [id number] [place] [address] [place] HYPOGRANULATED PMNS Occasional Normal [facility] Comment on above: Order Comment: Speci men Type: BLOOD SPECIMENOrdering Facility: [facility] Address: [address] [place] [address] Performed By: #### 5 7782-5 ####[facility] [id number] [address] STATES OF [facility] LABCLIA [id number] [place] [address] [place]#### STFREV ####[facility] LABCLIA [id number] [place] [address] [place] IMMATURE GRAN % 0.4 % Normal [facility] Comment on above: Order Comment: Speci men Type: BLOOD SPECIMENOrdering Facility: [facility] Address: [address] [place] [address] Performed By: #### 5 7782-5 ####[facility]ITALNCLIA [id number] [address] STATES OF [facility] LABCLIA [id number] [place] [address] [place]#### STFREV ####[facility] LABCLIA [id number] [place] [address] [place] IMMATURE GRAN ABS <0.03 Normal <0.[address] [facility] Comment on above: Order Comment: Speci men Type: BLOOD SPECIMENOrdering Facility: [facility] Address: [address] [place] [address] Performed By: #### 5 7782-5 ####[facility] MILLWNCLIA [id number] [place] [address] [place] [facility] LABCLIA [id number] [place] [address] [place]#### STFREV ####[facility] LABCLIA [id number] [place] [address] [place] Lymphocytes (Bld) [#/Vol] 1.65 10*3/uL Normal 1.00-4.00 [facility] Comment on above: Order Comment: Speci men Type: BLOOD SPECIMENOrdering Facility: [facility] Address: [address] [place], [place] [address] Performed By: #### 5 7782-5 ####[facility]ENTERLIA [id number] [place] [address] [place] [facility] LABCLIA [id number] [place] [address] [place]#### STFREV ####[facility] LABCLIA [id number] [place] [address] [place] Lymphocytes/100 WBC (Bld) 70.5 % Normal [facility] Comment on above: Order Comment: Speci men Type: BLOOD SPECIMENOrdering Facility: [facility] Address: [address] [place] [address] Performed By: #### 5 7782-5 ####[facility]ITALWNCLIA [id number] [place] [address] [place] [facility] LABCLIA [id number] [place] [address] [place]#### STFREV ####[facility] LABCLIA [id number] [address] [place] MCH (RBC) [Entitic mass] 32.7 pg Normal 26.0-34.0 [facility] Comment on above: Order Comment: Speci men Type: BLOOD SPECIMENOrdering Facility: [facility] Address: [address] [place] [address] Performed By: #### 5 7782-5 ####[facility] [id number] [address] LABCLIA [id number] [address] [place]#### STFREV ####[facility] LABIA [id number] [address] [place] MCHC (RBC) [Mass/Vol] 33.8 g/dL Normal 30.5-36.0 [facility] Comment on above: Order Comment: Speci men Type: BLOOD SPECIMENOrdering Facility: [facility] Address: [address] [place] [address] Performed By: #### 5 7782-5 ####[facility] [id number] [address] LABCLIA [id number] [address] [place]#### STFREV ####[facility] LABCLIA [id number] [address] [place] MCV (RBC) [Entitic vol] 96.8 fL Normal 80.0-100.0 C [facility] Comment on above: Order Comment: Speci men Type: BLOOD SPECIMENOrdering Facility: [facility] Address: [address] [place], [place] [address] Performed By: #### 5 7782-5 ####[facility]ITALWNCLIA [id number] [address] OF [facility] LABCLIA [id number] [place] [address] [place]#### STFREV ####[facility] LABCLIA [id number] [place] [address] [place] Monocytes (Bld) [#/Vol] 0.05 10*3/uL Normal <0.87 [facility] Comment on above: Order Comment: Speci men Type: BLOOD SPECIMENOrdering Facility: [facility] Address: [address] [place] [address] Performed By: #### 5 7782-5 ####[facility] [id number] [address] LABCLIA [id number] [place] [address] [place]#### STFREV ####[facility] LABCLIA [id number] [address] [place] Monocytes/100 WBC (Bld) 2.1 % Normal C [facility] Comment on above: Order Comment: Speci men Type: BLOOD SPECIMENOrdering Facility: [facility] Address: [address] [place] [address] Performed By: #### 5 7782-5 ####[facility]ITALNCLIA [id number] [address] OF [facility] LABCLIA [id number] [place] [address] [place]#### STFREV ####[facility] LABCLIA [id number] [place] [address] [place] Neutrophils (Bld) [#/Vol] 0.39 10*3/uL Low 1.45-7.50 [facility] Comment on above: Order Comment: Speci men Type: BLOOD SPECIMENOrdering Facility: [facility] Address: [address] [place] [address] Performed By: #### 5 7782-5 ####[facility]ENTERLIA [id number] [address] STATES [facility] LABCLIA [id number] [place] [address] [place]#### STFREV ####[facility] LABCLIA [id number] [place] [address] [place] Neutrophils/100 WBC (Bld) 16.7 % Normal [facility] Comment on above: Order Comment: Speci men Type: BLOOD SPECIMENOrdering Facility: [facility] Address: [address] [place], [place] [address] Performed By: #### 5 7782-5 ####[facility] [id number] [address] STATES [facility] LABCLIA [id number] [place] [address] [place]#### STFREV ####[facility] LABCLIA [id number] [place] [address] [place] Nucleated RBC (Bld) [#/Vol] 0.03 10*3/uL High <0.01 [facility] Comment on above: Order Comment: Speci men Type: BLOOD SPECIMENOrdering Facility: [facility] Address: [address] [place], [place] [address] Performed By: #### 5 7782-5 ####[facility]PITALNCLIA [id number] [place] [address] [place] [facility] LABCLIA [id number] [place] [address] [place]#### STFREV ####[facility] LABCLIA [id number] [place] [address] [place] Nucleated RBC/100 WBC (Bld) [Ratio] 1.3 /100 WBC Normal [facility] Comment on above: Order Comment: Speci men Type: BLOOD SPECIMENOrdering Facility: [facility] Address: [address] [place] [address] Performed By: #### 5 7782-5 ####[facility]ENTERLIA [id number] [address] STATES OF [facility] LABCLIA [id number] [place] [address] [place]#### STFREV ####[facility] LABCLIA [id number] [place] [address] [place] PLATELET ESTIMATE Adequate Normal [facility] Comment on above: Order Comment: Speci men Type: BLOOD SPECIMENOrdering Facility: [facility] Address: [address] [place] [address] Performed By: #### 5 7782-5 ####[facility]ITALWNCLIA [id number] [place] [address] [place] [facility] LABCLIA [id number] [place] [address] [place]#### STFREV ####[facility] LABCLIA [id number] [place] [address] [place] Platelet mean volume (Bld) [Entitic vol] 10.1 fL Normal 9.0-12.7 [facility] Comment on above: Order Comment: Speci men Type: BLOOD SPECIMENOrdering Facility: [facility] Address: [address] [place] [address] Performed By: #### 5 7782-5 ####[facility] MILLTOWNCLIA [id number] [place] [address] [place] [facility] LABCLIA [id number] [place] [address] [place]#### STFREV ####[facility] LABCLIA [id number] [place] [address] [place] Platelets (Bld) [#/Vol] 173 10*3/uL Normal 150-400 [facility] Comment on above: Order Comment: Speci men Type: BLOOD SPECIMENOrdering Facility: [facility] Address: [address] [place] [address] Performed By: #### 5 7782-5 ####[facility] MILLWNCLIA [id number] [place] [address] [place] [facility] LABCLIA [id number] [place] [address] [place]#### STFREV ####[facility] LABCLIA [id number] [place] [address] [place] Polychromasia LM Ql (Bld) Slight Normal [facility] Comment on above: Order Comment: Speci men Type: BLOOD SPECIMENOrdering Facility: [facility] Address: [address] [place] [address] Performed By: #### 5 7782-5 ####[facility] MILLTOWNCLIA [id number] [place] [address] [place] [facility] LABCLIA [id number] [place] [address] [place]#### STFREV ####[facility] LABCLIA [id number] [place] [address] [place] RBC (Bld) [#/Vol] 3.73 10*6/uL Low 4.20-6.00 [facility] Comment on above: Order Comment: Speci men Type: BLOOD SPECIMENOrdering Facility: [facility] Address: [address] [place] [address] Performed By: #### 5 7782-5 ####[facility]ENTERLIA [id number] [place] [address] [place] [facility] LABCLIA [id number] [place] [address] [place]#### STFREV ####[facility] LABIA [id number] [place] [address] [place] RED CELL MORPH Unremarkable Normal [facility] Comment on above: Order Comment: Speci men Type: BLOOD SPECIMENOrdering Facility: [facility] Address: [address] [place] [address] Performed By: #### 5 7782-5 ####[facility]ITALNCLIA [id number] [place] [address] [place] [facility] LABCLIA [id number] [place] [address] [place]#### STFREV ####[facility] LABCLIA [id number] [place] [address] [place] WBC (Bld) [#/Vol] 2.31 10*3/uL Low 3.70-11.00 [facility] Comment on above: Order Comment: Speci men Type: BLOOD SPECIMENOrdering Facility: [facility] Address: [address] [place], [place] [address] Performed By: #### 5 7782-5 ####[facility]ITALWNCLIA [id number] [place] [address] [place] [facility] LABCLIA [id number] [place] [address] [place]#### STFREV ####[facility] LABCLIA [id number] [place] [address] [place] Direct bilirubinon 2 Bilirubin.direct [Mass/Vol] 0.18 mg/dL 0.00-0.30 [facility] Work Phone: Laboratory - Chemistry and C hemistry - challengeon 07-15-2021 ALP [Catalytic activity/Vol] 92 U/L 45-117 [facility] Work Phone: ALT [Catalytic activity/Vol] 142 U/L 16-61 [facility] Work Phone: Globulin (S) [Mass/Vol] 3.8 g/dL 2.2-4.2 [facility] Work Phone: No Panel Informationon 07-15 Estimated GFR (MDRD) Amer 48 mL/min >60 [facility] Work Phone: Comment on above: GFR Calc Estimated GFR (MDRD) Non-Af Amer 39 mL/min >60 [facility] Work Phone: Comment on above: Non- GFR Calc PATHOLOGIST INTERPRETATION C BC/DIFFon 07-15-2021 [employer] Salesman review Best (Unsp spec) [Interp] Reviewed by Merari Malcolm M.D. Normal [facility] Comment on above: Order Comment: Speci men Type: BLOOD SPECIMENOrdering Facility: [facility] Address: [address] [place] [address] Performed By: #### 5 7782-5 ####[facility] [id number] [address] LABCLIA [id number] [place] [id number] [place]#### STFREV ####[facility] LABCLIA [id number] [place] [id number] [place] STAFF REVIEW, CBCDIF Normal [facility] Comment on above: Order Comment: Speci men Type: BLOOD SPECIMENOrdering Facility: [facility] Address: [address] [place] [id number] Result Comment: Norm ocytic anemia with slight polychromasia Leukopenia with absolute neutropenia Performed By: #### 5 7782-5 ####[facility] [id number] [address] LABCLIA [id number] [address] [place]#### STFREV ####[facility] LABCLIA [id number] [place] [id number] [place] Serum or plasma albumin jb urement (mass/volume)on 07-15-2021 Albumin [Mass/Vol] 3.7 g/dL 3.2-5.0 [facility] Work Phone: Serum or plasma cholesterol in HDL measurement (mass/volume)on 07-15-2021 Cholesterol in HDL [Mass/Vol] 30 mg/dL [facility] Work Phone: Comment on above: The drugs N-Acetylcy steine and Metamizole may falsely depress this assay. Reference Range HDL <40 mg/dL Low HDL Cholesterol HDL >or= 60 mg/dL High HDL Cholesterol Serum or plasma cholesterol in VLDL measurement (mass/volume)on 07-15-2021 Cholesterol in VLDL [Mass/Vol] 19 mg/dL 5-40 [facility] Work Phone: Serum or plasma creatinine m easurement (mass/volume)on 07-15-2021 Creatinine [Mass/Vol] 1.83 mg/dL 0.70-1.30 [facility] Work Phone: Comment on above: The validity of the calculated GFR & GFRAA in patients over 70 years has not been determined. Clinical correlation is essential. Serum or plasma low density lipoprotein (LDL) cholesterol measurement (mass/volume)on 07-15-2021 Cholesterol in LDL [Mass/Vol] 14 mg/dL 0-130 [facility] Work Phone: Thin prep Papanicolaou smear with manual screeningon 07-15-2021 Thin prep Papanicolaou smear with manual screening 48 U/L 15-37 [facility] Work Phone: Basic metabolic 2000 panelon 07-14-2021 Anion gap [Moles/Vol] 10 mmol/L Normal 9-18 [facility] Comment on above: Order Comment: Speci men Type: BLOOD SPECIMENOrdering Facility: [facility] Address: [address] [place] [address] Performed By: #### 2 [id number] ####[facility] [id number] [place] [address] [place] Calcium [Mass/Vol] 8.6 mg/dL Normal 8.5-10.2 [facility] Comment on above: Order Comment: Speci men Type: BLOOD SPECIMENOrdering Facility: [facility] Address: [address] [place] [address] Performed By: #### 2 4321-2 ####[facility] MILLTOWNCLIA [id number] [place] [address] [place] Chloride [Moles/Vol] 101 mmol/L Normal 97-105 [facility] Comment on above: Order Comment: Speci men Type: BLOOD SPECIMENOrdering Facility: [facility] Address: [address] [address] Performed By: #### 2 4321-2 ####[facility] MILLWNCLIA [id number] [place] [address] [place] CO2 [Moles/Vol] 23 mmol/L Normal 22-30 [facility] Comment on above: Order Comment: Speci men Type: BLOOD SPECIMENOrdering Facility: [facility] Address: [address] [place] [address] Performed By: #### 2 4321-2 ####[facility] [id number] [place] [address] [place] Creatinine [Mass/Vol] 1.49 mg/dL High 0.73-1.22 [facility] Comment on above: Order Comment: Speci men Type: BLOOD SPECIMENOrdering Facility: [facility] Address: [address] [place] [address] Performed By: #### 2 4321-2 ####[facility] [id number] [address] [place] ESTIMATED GLOMERULAR FILTRATION RATE 51 mL/min/1.73m??? Low >=60 [facility] Comment on above: Order Comment: Speci men Type: BLOOD SPECIMENOrdering Facility: [facility] Address: [address] [place] [address] Result Comment: Brandi mated Glomerular Filtration Rate [...] actual GFR. Performed By: #### 2 4321-2 ####[facility] [id number] [place] [address] [place] Glucose [Mass/Vol] 149 mg/dL High 74-99 [facility] Comment on above: Order Comment: Speci men Type: BLOOD SPECIMENOrdering Facility: [facility] Address: [address] [place] [address] Result Comment: The [place] [employer] (ADA) provides guidance for cutoff [...] Standards of Medical Care in Diabetes 2016, [place] [employer]. Diabetes Care. 2016.39(Suppl 1). Performed By: #### 2 4321-2 ####[facility] [id number] [place] [address] [place] Potassium [Moles/Vol] 3.8 mmol/L Normal 3.7-5.1 [facility] Comment on above: Order Comment: Speci men Type: BLOOD SPECIMENOrdering Facility: [facility] Address: [address] [address] Performed By: #### 2 4321-2 ####[facility] [id number] [place] [address] [place] Sodium [Moles/Vol] 134 mmol/L Low 136-144 [facility] Comment on above: Order Comment: Speci men Type: BLOOD SPECIMENOrdering Facility: [facility] Address: [address] [address] Performed By: #### 2 4321-2 ####[facility] [id number] [place] [address] [place] Urea nitrogen [Mass/Vol] 21 mg/dL Normal 9-24 [facility] Comment on above: Order Comment: Speci men Type: BLOOD SPECIMENOrdering Facility: [facility] Address: [address] [place] [address] Performed By: #### 2 4321-2 ####[facility]ENTERLIA [id number] [place] [address] [place] [facility] Anion gap [Moles/Vol] 10 mmol/L 9 - 18 mmol/L [facility] Calcium [Mass/Vol] 8.6 mg/dL 8.5 - 10. 2 mg/dL [facility] Chloride [Moles/Vol] 101 mmol/L 97 - 10 5 mmol/L [facility] CO2 [Moles/Vol] 23 mmol/L 22 - 30 mmol/L [facility] Creatinine [Mass/Vol] 1.49 mg/dL High 0.73 - 1.22 mg/dL [facility] Estimated Glomerular Filtration Rate 51 mL/min/1.73m Low >=60 mL/min/1.73m [facility] Glucose [Mass/Vol] 149 mg/dL High 74 - 99 mg/dL [facility] Potassium [Moles/Vol] 3.8 mmol/L 3.7 - 5.1 mmol/L [facility] Sodium [Moles/Vol] 134 mmol/L Low 136 - 144 mmol/L [facility] Urea nitrogen [Mass/Vol] 21 mg/dL 9 - 24 mg/dL [facility] CBC W Auto Differential pane l (Bld)on 07-14-2021 Basophils/100 WBC (Bld) 1.0 % Normal C [facility] Comment on above: Order Comment: Speci men Type: BLOOD SPECIMENOrdering Facility: [facility] Address: [address] [place], [place] [address] [address] Performed By: #### 5 7021-8 ####[facility] HOSPITALMOOSELIA [id number] [place] [address] [facility] LABORATORYCLIA [id number] [address] Differential cell count method Nom (Bld) Manual Normal [facility] Comment on above: Order Comment: Speci men Type: BLOOD SPECIMENOrdering Facility: [facility] Address: [address] [place], [place] [address] [address] Performed By: #### 5 7021-8 ####[facility] MILLTOWNCLIA [id number] [address] LABORATORYCLIA [id number] [place] [address] [place] Eosinophils (Bld) [#/Vol] 0.14 10*3/uL Normal <0.46 [facility] Comment on above: Order Comment: Speci men Type: BLOOD SPECIMENOrdering Facility: [facility] Address: [address] [place] [address] Performed By: #### 5 7021-8 ####[facility]ITALWNCLIA [id number] [address] LABORATORYCLIA [id number] [place] [address] [place] Eosinophils/100 WBC (Bld) 4.0 % Normal [facility] Comment on above: Order Comment: Speci men Type: BLOOD SPECIMENOrdering Facility: [facility] Address: [address] [place] [address] Performed By: #### 5 7021-8 ####[facility]OSPITALWNCLIA [id number] [address] LABORATORYCLIA [id number] [place] [address] [place] Erythrocyte distribution width (RBC) [Ratio] 13.6 % Normal 11.5-15.0 [facility] Comment on above: Order Comment: Speci men Type: BLOOD SPECIMENOrdering Facility: [facility] Address: [address] [place] [address] Performed By: #### 5 7021-8 ####[facility] MILLTOWNCLIA [id number] [address] LABORATORYCLIA [id number] [place] [address] [place] Hematocrit (Bld) [Volume fraction] 35.1 % Low 39.0-51.0 [facility] Comment on above: Order Comment: Speci men Type: BLOOD SPECIMENOrdering Facility: [facility] Address: [address] [place] [address] Performed By: #### 5 7021-8 ####[facility]ENTERLIA [id number] [address] LABORATORYCLIA [id number] [place] [address] [place] Hemoglobin (Bld) [Mass/Vol] 11.8 g/dL Low 13.0-17.0 [facility] Comment on above: Order Comment: Speci men Type: BLOOD SPECIMENOrdering Facility: [facility] Address: [address] [place] [address] Performed By: #### 5 7021-8 ####[facility] HOSPITALWTXLIA [id number] [address] LABORATORYCLIA [id number] [place] [address] [place] Lymphocytes (Bld) [#/Vol] 2.56 10*3/uL Normal 1.00-4.00 [facility] Comment on above: Order Comment: Speci men Type: BLOOD SPECIMENOrdering Facility: [facility] Address: [address] [place] [address] Performed By: #### 5 7021-8 ####[facility] CENTERLIA [id number] [address] LABORATORYCLIA [id number] [place] [address] [place] Lymphocytes/100 WBC (Bld) 74.0 % Normal [facility] Comment on above: Order Comment: Speci men Type: BLOOD SPECIMENOrdering Facility: [facility] Address: [address] [place] [address] Performed By: #### 5 7021-8 ####[facility] MILDREDMAJESTICNCLIA [id number] [address] LABORATORYCLIA [id number] [place] [address] [place] [facility] MCH (RBC) [Entitic mass] 32.6 pg Normal 26.0-34.0 [facility] Comment on above: Order Comment: Speci men Type: BLOOD SPECIMENOrdering Facility: [facility] Address: [address] [place] [address] Performed By: #### 5 7021-8 ####[facility] HOSPITALNCA [id number] [address] LABORATORYCLIA [id number] [place] [address] [place] MCHC (RBC) [Mass/Vol] 33.6 g/dL Normal 30.5-36.0 [facility] Comment on above: Order Comment: Speci men Type: BLOOD SPECIMENOrdering Facility: [facility] Address: [address] [place] [address] Performed By: #### 5 7021-8 ####[facility] HOSPITALNCA [id number] [address] LABORATORYCLIA [id number] [address] [place] [facility] MCV (RBC) [Entitic vol] 97.0 fL Normal 80.0-100.0 C [facility] Comment on above: Order Comment: Speci men Type: BLOOD SPECIMENOrdering Facility: [facility] Address: [address] [place] [address] Performed By: #### 5 7021-8 ####[facility] MILLTOWNCLIA [id number] [address] LABORATORYCLIA [id number] [place] [address] [place] Neutrophils (Bld) [#/Vol] 0.73 10*3/uL Low 1.45-7.50 [facility] Comment on above: Order Comment: Speci men Type: BLOOD SPECIMENOrdering Facility: [facility] Address: [address] [place] [address] Performed By: #### 5 7021-8 ####[facility] MILDREDTOWNCLIA [id number] [address] LABORATORYCLIA [id number] [place] [address] [place] Neutrophils/100 WBC (Bld) 21.0 % Normal [facility] Comment on above: Order Comment: Speci men Type: BLOOD SPECIMENOrdering Facility: [facility] Address: [address] [place] [address] Performed By: #### 5 7021-8 ####[facility] MILDREDTOWNCLIA [id number] [address] LABORATORYCLIA [id number] [place] [address] [place] Nucleated RBC/100 WBC (Bld) [Ratio] 0.0 /100 WBC Normal [facility] Comment on above: Order Comment: Speci men Type: BLOOD SPECIMENOrdering Facility: [facility] Address: [address] [place] [address] Performed By: #### 5 7021-8 ####[facility] MILLTOWNCLIA [id number] [address] LABORATORYCLIA [id number] [place] [address] [place] PLATELET ESTIMATE Decreased Normal [facility] Comment on above: Order Comment: Speci men Type: BLOOD SPECIMENOrdering Facility: [facility] Address: [address] [place] [address] Performed By: #### 5 7021-8 ####[facility] HOSPITALWNCLIA [id number] [address] LABORATORYCLIA [id number] [place] [address] [place] Platelet mean volume (Bld) [Entitic vol] 11.1 fL Normal 9.0-12.7 [facility] Comment on above: Order Comment: Speci men Type: BLOOD SPECIMENOrdering Facility: [facility] Address: [address] [place] [address] Performed By: #### 5 7021-8 ####[facility]ENTERLIA [id number] [address] LABORATORYCLIA [id number] [place] [address] [place] Platelets (Bld) [#/Vol] 102 10*3/uL Low 150-400 [facility] Comment on above: Order Comment: Speci men Type: BLOOD SPECIMENOrdering Facility: [facility] Address: [address] [place] [address] Result Comment: No c lot detected Performed By: #### 5 7021-8 ####[facility] CENTERLIA [id number] [address] LABORATORYCLIA [id number] [place] [address] [place] RBC (Bld) [#/Vol] 3.62 10*6/uL Low 4.20-6.00 [facility] Comment on above: Order Comment: Speci men Type: BLOOD SPECIMENOrdering Facility: [facility] Address: [address] [place] [address] Performed By: #### 5 7021-8 ####[facility] MILLTOWNCLIA [id number] [address] LABORATORYCLIA [id number] [place] [address] [place] [facility] RED CELL MORPH Reviewed. Unremarkable Normal [facility] Comment on above: Order Comment: Speci men Type: BLOOD SPECIMENOrdering Facility: [facility] Address: [address] [place] [address] Performed By: #### 5 7021-8 ####[facility]OSPITALNCLIA [id number] [address] LABORATORYCLIA [id number] [place] [address] [facility] WAM - ABS BASO 0.03 k/uL Normal <0.11 [facility] Comment on above: Order Comment: Speci men Type: BLOOD SPECIMENOrdering Facility: [facility] Address: [address] [place] [address] Performed By: #### 5 7021-8 ####[facility] HOSPITALWNCLIA [id number] [address] LABORATORYCLIA [id number] [place] [address] [place] [facility] WAM - ABS MONO 0.00 k/uL Normal <0.87 [facility] Comment on above: Order Comment: Speci men Type: BLOOD SPECIMENOrdering Facility: [facility] Address: [address] [place] [address] Performed By: #### 5 7021-8 ####[facility] HOSPITALWNCLIA [id number] [address] LABORATORYCLIA [id number] [place] [address] [place] WAM - MONO% 0.0 % Normal [facility] Comment on above: Order Comment: Speci men Type: BLOOD SPECIMENOrdering Facility: [facility] Address: [address] [place] [address] Performed By: #### 5 7021-8 ####[facility] HOSPITALWTXLIA [id number] [address] LABORATORYCLIA [id number] [place] [address] [place] WAM ABSOLUTE NRBC <0.01 Normal <0.[address] [facility] Comment on above: Order Comment: Speci men Type: BLOOD SPECIMENOrdering Facility: [facility] Address: [address] [place] [address] Performed By: #### 5 7021-8 ####[facility] CENTERLIA [id number] [address] LABORATORYCLIA [id number] [place] [address] [place] WBC (Bld) [#/Vol] 3.46 10*3/uL Low 3.70-11.00 [facility] Comment on above: Order Comment: Speci men Type: BLOOD SPECIMENOrdering Facility: [facility] Address: [address] [place] [address] Performed By: #### 5 7021-8 ####[facility]OSPITALNCLIA [id number] [address] LABORATORYCLIA [id number] [place] [address] [place] CNOVSPon 07-14-2021 CNOVSP Visit (SP) Office (HEMAWS) SHELBI GARCIA ([id number]) 1955 M Date Time Provider Department 07/14/21 [...] PMH significant for type 2 diabetes, CAD (SC x3-most recent 2010; each treated with PCI/stent--5 stents total--most recent 2010), atrial fibrillation, CKD, RA, DVT (IVC) and sensory neuropathy. Patient was referred to a financial professional for joint pain and elevated inflammatory markers. 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 No petechiae. NEUROLOGIC: smalltalk developer II-XII are grossly intact. No focal motor [...] Abs Lymph 1.00 - 4.00 k/uL 3.51 [place]% % 5.5 Abs [place] <0.87 k/uL 0.46 Eosin% % 3.3 Abs Eosin <0.46 k/uL 0.28 Baso% % 0.8 Abs Baso <0.11 k/uL 0.07 Nucleated Reds 0 /100 WBC 0.0 Absolute nRBC <0.01 k/uL <0.01 Diff Type Auto Diff Pathologist Interpretatio (more content not included)... Normal [facility] SHEL[facility] ([id number]) 1955 M Date Time Provider Department 07/14/21 [...] [C90.00] Order(s):CBC + DIFF [SQCBCDIF] Order #: [id number] FUTURE BASIC METABOLIC PNL [SQBMP] Order #: [id number] FUTURE Prescriptions as of 07/14/2021 - apixaban [...] 1 tablet by mouth once daily. - X-Ezwekll-D5 Lwqb-Pacjdn-F41 3-35-2 mg tab or Capsule Take 1 [...] Status:Closed by DORENE CHEN LPN on 07/14/21 [facility] Telephone (AMANDA) SHELBI GARCIA ([id number]) 1955 M Date Time Provider Department 07/14/21 [...] today for repeat CBC. 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 - G-Oajehat-A9 Coth-Jimdsx-M14 3-35-2 mg tab or Capsule Take 1 [...] Status:Closed by NANCY QUEZADA on 07/15/21 Normal [facility] PT panel Coag (PPP)on 2021 INR Coag (PPP) [Relative time] 1.0 {INR} Normal 0.9-1.3 [facility] Comment on above: Order Comment: Speci men Type: BLOOD SPECIMENOrdering Facility: [facility] Address: [address] [place] [address] [place] [address] Result Comment: Radha min K Antagonist (VKA) Therapeutic Range: INR 2 to 3 (Target INR of 2.5) Note: For patients treated with VKA drugs, such as warfarin, the [place] [employer] 2012 Guideline recommends [...] Chest 2012, 141:7S-47S Janiya RA, et al. [facility] 2017, 70: 252-289 Performed By: #### 3 4528-0, 99165-7 ####[facility] LABIA [id number] [address] [place] PT Coag (PPP) [Time] 10.3 s Normal 9.7-13.0 [facility] Comment on above: Order Comment: Tori pappas Type: BLOOD SPECIMENOrdering Facility: [facility] Address: [address] [place] [address] Performed By: #### 3 4528-0, 57914-7 ####[facility] [id number] [address] [place] aPTT PPPon 07-14-2021 aPTT Coag (PPP) [Time] 25.6 s Normal 23.0-32.4 Cl [facility] Comment on above: Order Comment: Tori pappas Type: BLOOD SPECIMENOrdering Facility: [facility] Address: [address] [place] [address] Performed By: #### 3 4528-0, 79486-6 ####[facility] [id number] [address] [place] CNPNon 06-24-2021 [facility] Telephone (HEMAWS) SHELBI GARCIA ([id number]) 1955 M Date Time Provider Department 3/17/22 JP DENIS During your visit today, we recorded the following information about you: Sangeetha Boudreaux Pss 06/24/2021 2:45 PM Signed Patient is calling for his bone marrow biopsy results. Please advise the patient. Dorene Douglasgins AIDAN 06/24/2021 3:00 PM Signed Bone marrow bx was done yesterday at [facility], called pt to let him know we wont have path results back for a week to 10 days. Pt voices understanding. Dorene Chen AIDAN Pickett 07/13/2021 10:21 AM Signed Patient called for his bone marrow biopsy results, can be reached at [phone] Thank you Freida Quezada LPN 07/13/2021 12:11 PM Signed results placed on physician desk. AIDAN Vergara DO 07/13/2021 12:58 PM Addendum I called [...] 1 tablet by mouth once daily. - J-Xbyyqhv-B1 Bphn-Gtrgpb-C16 3-35-2 mg tab or Capsule Take 1 [...] by DORENE CHEN LPN on 06/24/21 Normal [facility] INR in Blood by Coagulation assayon 06-23-2021 INR Coag (Bld) [Relative time] 0.9 {INR} [facility] Work Phone: Laboratory - Coagulationon 0 06-23-2021 aPTT Coag (Bld) [Time] 27.9 s 24.1-36.2 [facility] Work Phone: PT Coag (PPP) [Time] 11.9 s 11.7-14.9 [facility] Work Phone: Platelets bldon 06-23-2021 Platelets (Bld) [#/Vol] 217 10*3/uL 150-450 [facility] Work Phone: CNPNon 06-22-2021 CNPN Telephone (nCrypted Cloud) RADHASHELBI ([id number]) 1955 M Date Time Provider Department 06/22/21 [...] dose was 06/19 he is scheduled at [facility] tomorrow for bone biopsy and wanted to [...] 1 tablet by mouth once daily. - T-Etenfgw-D4 Jgwx-Contet-I83 3-35-2 mg tab or Capsule Take 1 [...] Encounter Status:Closed by NANCY QUEZADA on 06/22/21 [facility] (AM[facility]DA[facility] SHELBI GARCIA ([id number]) 1955 M Date Time Provider Department 06/16/21 [...] instructed to do so by radiology at [facility]. DO Nancy Fernandes LPN 06/16/2021 8:39 AM Signed Spoke with pt. He is taking Eliquis 5 mg BID. ( added to medication list) Pt. Started holding the Eliquis, ASA, and Plavix yesterday as instructed by [facility] radiology dept. AIDAN Vergara DO 06/16/2021 8:43 [...] 1 tablet by mouth once daily. - Z-Fhvahbw-F0 Hrmi-Lryuqn-L01 3-35-2 mg tab or Capsule Take 1 [...] Status:Closed by DORENE CHEN LPN on 06/16/21 Normal [facility] CNOVSPon 06-15-2021 CNOVSP Visit (SP) Office (AMANDA) SHELBI GARCIA ([id number]) 1955 M Date Time Provider Department 06/15/21 [...] PMH significant for type 2 diabetes, CAD (SC x3-most recent 2010; each treated with PCI/stent--5 stents total--most recent 2010), atrial fibrillation, CKD, RA, DVT (IVC) and sensory neuropathy. Patient was referred to a financial professional for joint pain and elevated inflammatory markers. 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 No petechiae. NEUROLOGIC: smalltalk developer II-XII are grossly intact. No focal motor [...] Abs Lymph 1.00 - 4.00 k/uL 3.51 [place]% % 5.5 Abs [place] <0.87 k/uL 0.46 Eosin% % 3.3 Abs Eosin <0.46 k/uL 0.28 Baso% % 0.8 Abs Baso <0.11 k/uL 0.07 Nucleated Reds 0 /100 WBC 0.0 Absolute nRBC <0.01 k/uL <0.01 Diff Type Auto Diff Pathologist Interpretation, CBCDIF SEE COMMENT Pathologist (STFREV) The Patholog (more content not included)... Normal [facility] CNPIzzy 06-15-2021 CNPN Telephone (HEMAWS) SHELBI GARCIA ([id number]) 1955 M Date Time Provider Department 06/15/21 JP DENIS During your visit today, we recorded the following information about you: Dasia Quintero Pss 06/15/2021 10:41 AM Signed Please write order for CT guided bone marrow biopsy. Patient is scheduled at [facility] on 06/23 @ 9:00 AM. Patient aware to arrive by 8:00, NPO after midnight and that he will need a screw driver operator, and someone to stay with him for 24 hours. Patient also aware to bring current med list to appt and to stay off plavix for 7 days prior to appt-today would be his last dose. Sara Manuela Pss 06/15/2021 10:47 AM Signed Ashly from [facility] called requesting an order for procedure, HANDP within 30 days, order for labs - PT, PTT, INR and any imaging from patient. Please fax to [phone] Attn: Ashly. Ronel Rosen LPN 06/15/2021 11:00 AM Signed Please file orders and I will fax to [facility]. Ronel Denis DO 06/15/2021 1:19 PM Signed Thank you. Orders filed. DO Ronel Fernandes LPN 06/15/2021 2:04 PM Signed Awaiting completion of today's OV note before faxing all information to [facility]. Ronel Quezada LPN 06/16/2021 8:46 AM Signed Office notes attached and all information faxed as directed. Nancy Quezada LPN Allergies As of Date: 06/15/2021 Noted Allergy Reaction ZYBAN (BUPROPION (SMOKING DETER)) 01/28/2005 4 - Hives BENADRILINA (DIPHENHYDRAMINE HCL) 07/17/2013 4 - Hives Date Reviewed: 06/15/2021 Reviewed by: Jp Denis DO - Fully Assessed Reason for Visit: Orders [681] Primary Visit Diagnosis:Multiple myeloma not having achieved remission (HCC) [C90.00] Order(s):IMAGING GUIDED BIOPSY BONE MARROW (HEMATOLOGY) [[id number]] Order #: [id number] PROTHROMBIN TIME/PT [SQPT] Order #: [id number] FUTURE ACTIVATED PTT [SQPTT] Order #: [id number] FUTURE Prescriptions as of 06/16/2021 - apixaban [...] 1 tablet by mouth once daily. - I-Haniyih-S5 Ytpr-Tlzvll-U25 3-35-2 mg tab or Capsule Take 1 [...] Status:Closed by NANCY QUEZADA on 06/16/21 Normal [facility] CT WB SKULL TO KNEE WO IVCON [...] Mild-moderate atherosclerotic calcifications of the imaged aorta. [employer] (topogram) images: No additional findings. IMPRESSION: No CT evidence of multiple myeloma. Stubber: [facility] Transcribe Date/Time: Jun 10 2021 2:52P Dictated by : REGGIE NASH DO This examination was interpreted and the report reviewed and electronically signed by: REGGIE NASH DO on Jun 10 2021 3:09PM EST [id number] Normal [facility] CT WHOLE BODY SKULL TO KNEE WO IVCONon 06-10-2021 [facility] Monoclon Prot 24 Uron 2021 [facility] Interpretation SEE COMMENT Normal [facility] Comment on above: Result Comment: Atyp ical restricted bands are present in the IgA and lambda regions, with an additional atypical band in the lambda region. 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 Performed By: #### U 24MPA, [id number] ####[facility] [address] [place], [place] [phone] PA Result M protein is present. Critically abnormal No M protein is identified. [facility] Comment on above: Performed By: #### U 24MPA, [id number] ####[facility] [address] [place], [place] [phone] [facility] Staff Review Reviewed by Sirisha Wolfe MD, PhD. ([id number]) Normal [facility] Comment on above: Performed By: #### U 24MPA [id number] ####[facility], [place] [phone] Period / Volumeon 05-30-2021 Collection End Date [facility] Comment on above: Performed By: #### U 24MPA [id number] ####[facility], [place] [phone] Collection End Time 15 [facility] Comment on above: Performed By: #### U 24MPJake [id number] ####[facility], [place] [phone] Collection Start Date [facility] Comment on above: Performed By: #### U 24MPJake [id number] ####[facility], [place] [phone] Collection Start Time [address] [facility] Comment on above: Performed By: #### U 24MPJake [id number] ####[facility], [place] [phone] Period 22 hr [facility] Comment on above: Performed By: #### U 24MPA [id number] ####[facility], [place] [phone] Volume 2375 mL [facility] Comment on above: Performed By: #### U 24MPA [id number] ####[facility], [place] [phone] Prot Elect Ur 24 hron 2021 Albumin, 24 hr 41.9 % [facility] Comment on above: Performed By: #### U 24MPA [id number] ####[facility] [place], [place] [phone] Alpha 1 Globul, 24hr 4.3 % Normal [facility] Comment on above: Performed By: #### U 24MPA, UEPG24 ####[place] [address], [place] [phone] Alpha 2 Globul, 24hr 13.1 % Normal [facility] Comment on above: Performed By: #### U 24MPA, UEPG24 ####[address] [phone] Beta Globulin, 24hr 28.3 % Normal [facility] Comment on above: Performed By: #### U 24MPA, UEPG24 ####[address] [phone] Gamma Globulin, 24hr 12.3 % Normal [facility] Comment on above: Performed By: #### U 24MPA, UEPG24 ####[address] [phone] Interpretation, 24hr An M protein is identified on protein electrophoresis. Normal [facility] Comment on above: Result Comment: See separate immunofixation report for characterization of the M protein. Performed By: #### U 24MPA, UEPG24 ####[address] [phone] M Bruce Quant/24 Hr 0.04 gm/24 Hr High 0.00 Cl [facility] Comment on above: Performed By: #### U 24MPA, UEPG24 ####[address] [phone] Protein Ur Conc (UEPG24) 10 mg/dL Normal 0-20 [facility] Comment on above: Performed By: #### U 24MPA, UEPG24 ####[address] [phone] Protein Urine 24hr (UEPG24) 0.24 gm/24 Hr High <0.16 [facility] Comment on above: Performed By: #### U 24MPA, [id number] ####[facility] [address] [place], [place] [phone] Staff Review, 24hr Reviewed by Sirisha Wolfe MD, PhD. ([id number]) Normal [facility] Comment on above: Performed By: #### U 24MPA, UEPG24 ####[facility] [address] [place], [place] [phone] B2 Microglobulinon 2 B2 Microglobulin 3.2 mg/L High <3.1 Madan garcias [facility] Comment on above: Performed By: #### B 2M, HREMOP, STREV, SERMPA, SEPG ####[facility] [place], [place] [phone] CNOVSPon 05-24-2021 CNOVSP Visit (SP) Office (HEMJESUS ALBERTO) SHELBI GARCIA ([id number]) 1955 M Date Time Provider Department 05/24/21 [...] PMH significant for type 2 diabetes, CAD (SC x3; each treated with PCI/stent--5 stents altogether), atrial fibrillation, CKD, RA and sensory neuropathy. Patient was referred to a financial professional for joint pain and elevated inflammatory markers. [...] No jaundice or rash. No petechiae. NEUROLOGIC: smalltalk developer II-XII are grossly intact. No focal motor [...] but righ (more content not included)... Normal [facility] Comp Metabolic Panelon 05-24 Albumin [Mass/Vol] 4.6 g/dL Normal 3.9-4.9 [facility] ALP [Catalytic activity/Vol] 89 U/L Normal 38-113 [facility] ALT [Catalytic activity/Vol] 20 U/L Normal 10-54 [facility] Anion gap [Moles/Vol] 10 mmol/L Normal 9-18 [facility] AST [Catalytic activity/Vol] 16 U/L Normal 14-40 [facility] Bilirubin [Mass/Vol] 0.6 mg/dL Normal 0.2-1.3 [facility] Calcium [Mass/Vol] 9.2 mg/dL Normal 8.5-10.2 [facility] Chloride [Moles/Vol] 104 mmol/L Normal 97-105 [facility] CO2 [Moles/Vol] 26 mmol/L Normal 22-30 [facility] Creatinine [Mass/Vol] 1.34 mg/dL High 0.73-1.22 [facility] eGFR- Amer. >[address] [facility] eGFR-All Other Races 53 . Normal [facility] Comment on above: Result Comment: eGFR (Estimated [...] [email or web address]. Glucose [Mass/Vol] 116 mg/dL High 74-99 [facility] Comment on above: Result Comment: The [place] Diabetes Association (ADA) provides guidance for cutoff [...] Standards of Medical Care in Diabetes 2016, [place] [employer]. Diabetes Care. 2016.39(Suppl 1). Potassium [Moles/Vol] 4.1 mmol/L Normal 3.7-5.1 [facility] Protein [Mass/Vol] 7.5 g/dL Normal 6.3-8.0 [facility] Sodium [Moles/Vol] 140 mmol/L Normal 136-144 [facility] Urea nitrogen [Mass/Vol] 20 mg/dL Normal 9-24 [facility] Hepatitis Remote Panelon HBsAg Negative Normal Negative [facility] Comment on above: Performed By: #### B 2M, HREMOP, STREV, SERMPA, SEPG ####[facility] [place], [place] [phone] Hep B Core Ab,Total Negative Normal Negative [facility] Comment on above: Performed By: #### B 2M, HREMOP, STREV, SERMPA, SEPG ####[facility], [place] [phone] Hepatitis C Ab IA Negative Normal Negative [facility] Comment on above: Performed By: #### B 2M, HREMOP, STREV, SERMPA, SEPG ####[facility], [place] [phone] HepB Surface Ab,Qual Negative Normal Negative [facility] Comment on above: Result Comment: NEGA TIVE Performed By: #### B 2M, HREMOP, STREV, SERMPA, SEPG ####[facility], [place] [phone] LDon 05-24-2021 LD 203 U/L Normal 135-225 [facility] Comment on above: Result Comment: Hemo lysis [...] 05-24 K/L Ratio, Serum 0.23 Low 0.26-1.65 [facility] Comment on above: Performed By: #### B 2M, HREMOP, STREV, SERMPA, SEPG ####[facility] [place], [place] [phone] [place], Free, Serum 14.2 mg/L Normal 3.30-19.40 [facility] Comment on above: Result Comment: Test performed by an immunoturbidimetric assay on [employer] instrument from [facility]. Immunoglobulin free light chain assay results should be interpreted in conjunction with other tests and in correlation with clinical picture. Performed By: #### B 2M, HREMOP, STREV, SERMPA, SEPG ####[facility], [place] [phone] Lambda, Free, Serum 61.1 mg/L High 5.7-26.3 [facility] Comment on above: Result Comment: Test performed by an immunoturbidimetric assay on [employer] instrument from [facility]. Immunoglobulin free light chain assay results should be interpreted in conjunction with other tests and in correlation with clinical picture. Performed By: #### B 2M, HREMOP, STREV, SERMPA, SEPG ####[facility], [place] [phone] MPA Interpretation SEE COMMENT Normal [facility] Comment on above: Result Comment: Atyp ical restricted bands are present in the IgA and lambda regions. Consistent with IgA lambda monoclonal gammopathy. Performed By: #### B 2M, HREMOP, STREV, SERMPA, SEPG ####[place] [address] [place] [phone] MPA Result M protein is present. Critically abnormal No M protein is identified. [facility] Comment on above: Performed By: #### B 2M, HREMOP, STREV, SERMPA, SEPG ####[place] [address] [place] [phone] MPA Serum IgA 610 mg/dL High 70-400 [facility] Comment on above: Performed By: #### B 2M, HREMOP, STREV, SERMPA, SEPG ####[place] [address] [place] [phone] MPA Serum IgG 638 mg/dL Low 700-1600 [facility] Comment on above: Performed By: #### B 2M, HREMOP, STREV, SERMPA, SEPG ####[place] [address] [place] [phone] MPA Serum IgM 66 mg/dL Normal 40-230 [facility] Comment on above: Performed By: #### B 2M, HREMOP, STREV, SERMPA, SEPG ####[place] [address] [place] [phone] Staff Review Reviewed by Dasia Kessler MD ([id number]) Normal [facility] Comment on above: Performed By: #### B 2M, HREMOP, STREV, SERMPA, SEPG ####[address]yler [address] [phone] Path Interp w CBCDIFon 05-24 Abs Baso 0.07 k/uL Normal <0.11 [facility] Comment on above: Performed By: #### B 2M, HREMOP, STREV, SERMPA, SEPG ####[place] [address] [place] [phone] Abs [place] 0.46 k/uL Normal <0.87 [facility] Comment on above: Performed By: #### B 2M, HREMOP, STREV, SERMPA, SEPG ####[place] [address] [place] [phone] Abs Neut 4.06 k/uL Normal 1.45-7.50 [facility] Comment on above: Performed By: #### B 2M, HREMOP, STREV, SERMPA, SEPG ####[place] [address] [place] [phone] Absolute nRBC <0.01 Normal <0.01 [facility] Comment on above: Performed By: #### B 2M, HREMOP, STREV, SERMPA, SEPG ####[place] [address] [place] [phone] Basophils/100 WBC (Bld) 0.8 % Normal [facility] Comment on above: Performed By: #### B 2M, HREMOP, STREV, SERMPA, SEPG ####[place] [address] [place] [phone] DTYPE Auto Diff Normal [facility] Comment on above: Performed By: #### B 2M, HREMOP, STREV, SERMPA, SEPG ####[place] [address] [place] [phone] Eosinophils (Bld) [#/Vol] 0.28 10*3/uL Normal <0.46 [facility] Comment on above: Performed By: #### B 2M, HREMOP, STREV, SERMPA, SEPG ####[place] [address]ClevelSabrina [place] [phone] Eosinophils/100 WBC (Bld) 3.3 % Normal [facility] Comment on above: Performed By: #### B 2M, HREMOP, STREV, SERMPA, SEPG ####[place] [address] [place] [phone] Erythrocyte distribution width (RBC) [Ratio] 13.7 % Normal 11.5-15.0 [facility] Comment on above: Performed By: #### B 2M, HREMOP, STREV, SERMPA, SEPG ####[facility]Cleveland[place], [place] [phone] Hematocrit (Bld) [Volume fraction] 46.0 % Normal 39.0-51.0 [facility] Comment on above: Performed By: #### B 2M, HREMOP, STREV, SERMPA, SEPG ####[facility]ClevelandVicki [place] [phone] Hemoglobin (Bld) [Mass/Vol] 14.9 g/dL Normal 13.0-17.0 [facility] Comment on above: Performed By: #### B 2M, HREMOP, STREV, SERMPA, SEPG ####[place] [address]ClevelSabrina [place] [phone] Lymphocytes (Bld) [#/Vol] 3.51 10*3/uL Normal 1.00-4.00 [facility] Comment on above: Performed By: #### B 2M, HREMOP, STREV, SERMPA, SEPG ####[place] [address] [place] [phone] Lymphocytes/100 WBC (Bld) 41.8 % Normal [facility] Comment on above: Performed By: #### B 2M, HREMOP, STREV, SERMPA, SEPG ####[facility]ClevelSabrina [place] [phone] MCH 32.7 pG Normal 26.0-34.0 [facility] Comment on above: Performed By: #### B 2M, HREMOP, STREV, SERMPA, SEPG ####[place] [address]ClevelandVicki [place] [phone] MCHC (RBC) [Mass/Vol] 32.4 g/dL Normal 30.5-36.0 [facility] Comment on above: Performed By: #### B 2M, HREMOP, STREV, SERMPA, SEPG ####[place] [address] [place] [phone] MCV (RBC) [Entitic vol] 100.9 fL High 80.0-100.0 [facility] Comment on above: Performed By: #### B 2M, HREMOP, STREV, SERMPA, SEPG ####[place] [address] [place] [phone] Monocytes/100 WBC (Bld) 5.5 % Normal [facility] Comment on above: Performed By: #### B 2M, HREMOP, STREV, SERMPA, SEPG ####[place] [address] [place] [phone] Neutrophils/100 WBC (Bld) 48.6 % Normal [facility] Comment on above: Performed By: #### B 2M, HREMOP, STREV, SERMPA, SEPG ####[place] [address] [place] [phone] NRBCs 0.0 /100 WBC Normal 0 [facility] Comment on above: Performed By: #### B 2M, HREMOP, STREV, SERMPA, SEPG ####[place] [address] [place] [phone] Pathologist Interp SEE COMMENT Normal [facility] Comment on above: Result Comment: The Pathologist [...] #### B 2M, HREMOP, STREV, SERMPA, SEPG ####[place] [address] [place] [phone] Pathologist: The Pathologist Interpretation on this sample was cancelled because the hematology analyzer did not flag any parameters as requiring manual review. If there is a specific clinical concern for which you would like a pathologist to review the blood smear, please call Lab Client Services within 28 days. Normal [facility] Comment on above: Result Comment: Acco unt Credited Performed By: #### B 2M, HREMOP, STREV, SERMPA, SEPG ####[facility]ClevelM[place], [place] [phone] Platelet mean volume (Bld) [Entitic vol] 10.7 fL Normal 9.0-12.7 [facility] Comment on above: Performed By: #### B 2M, HREMOP, STREV, SERMPA, SEPG ####[facility]ClevelMunden, [place] [phone] Platelets (Bld) [#/Vol] 229 10*3/uL Normal 150-400 [facility] Comment on above: Performed By: #### B 2M, HREMOP, STREV, SERMPA, SEPG ####[facility]ClevelM[place], [place] [phone] RBC (Bld) [#/Vol] 4.56 10*6/uL Normal 4.20-6.00 [facility] Comment on above: Performed By: #### B 2M, HREMOP, STREV, SERMPA, SEPG ####[facility]CR[address], [place] [phone] WBC (Bld) [#/Vol] 8.40 10*3/uL Normal 3.70-11.00 [facility] Comment on above: Performed By: #### B 2M, HREMOP, STREV, SERMPA, SEPG ####[facility]ClevelM[place], [place] [phone] Protein Electrophor.on 05-24 Albumin [Mass/Vol] 4.14 g/dL Normal 3.37-4.23 [facility] Comment on above: Performed By: #### B 2M, HREMOP, STREV, SERMPA, SEPG ####[place] [address] AveClevelSabrina [place] [phone] Alpha 1 Globulin 0.26 gm/dL Normal 0.18-0.31 [facility] Comment on above: Performed By: #### B 2M, HREMOP, STREV, SERMPA, SEPG ####[facility] [place] [phone] Alpha 2 Globulin 0.72 gm/dL Normal 0.52-0.97 [facility] Comment on above: Performed By: #### B 2M, HREMOP, STREV, SERMPA, SEPG ####[place] [address] [place] [phone] Beta Globulin 0.97 gm/dL Normal 0.84-1.36 [facility] Comment on above: Performed By: #### B 2M, HREMOP, STREV, SERMPA, SEPG ####[place] [address] [place] [phone] Gamma Globulin 1.11 gm/dL Normal 0.70-1.44 [facility] Comment on above: Performed By: #### B 2M, HREMOP, STREV, SERMPA, SEPG ####[facility]ClevelSabrina [place] [phone] Interpretation SEE COMMENT Normal [facility] Comment on above: Result Comment: An M protein is identified on protein electrophoresis. See separate immunofixation report for characterization of the M protein. Performed By: #### B 2M, HREMOP, STREV, SERMPA, SEPG ####[facility]ClevelSabrina [place] [phone] M Protein Location Gamma fraction Normal [facility] Comment on above: Performed By: #### B 2M, HREMOP, STREV, SERMPA, SEPG ####[facility] [place], [place] [phone] M Bruce Concentratn 0.44 gm/dL High 0.00 [facility] Comment on above: Performed By: #### B 2M, HREMOP, STREV, SERMPA, SEPG ####[place] [address] [place], [place] [phone] Protein [Mass/Vol] 7.2 g/dL Normal 6.3-8.0 [facility] Comment on above: Performed By: #### B 2M, HREMOP, STREV, SERMPA, SEPG ####[place] [address] [place], [place] [phone] SPE Staff Review Reviewed by Dasia Kessler MD ([id number]) Normal [facility] Comment on above: Performed By: #### B 2M, HREMOP, STREV, SERMPA, SEPG ####[place] [address] [place], [place] [phone] OCT MACULA CIRRUS OU (BOTH E YES) [facility] Vital Signs Date Time Vital Sign Value Performing Clinician Lolis reyes 03-14-2023 08:08-0500 Body height 170.[address] Fatoumata Red Work Phone: [facility] 03-14-2023 08:08-0500 Body weight 111.[address] Fatoumata Red Work Phone: [facility] 03-13-2023 11:44-0500 Body mass index (BMI) [Ratio] 38.5 kg/m2 Dr. Fatoumata Red Work Phone: [facility] 01-19-2023 11:05-0400 Body height 170.[address] Fatoumata Red Work Phone: [facility] 01-19-2023 11:05-0400 Body mass index (BMI) [Ratio] 38.5 kg/m2 Dr. Fatoumata Red Work Phone: [facility] 01-19-2023 11:05-0400 Body weight 111.[address] Fatoumata Red Work Phone: [facility] 01-19-2023 11:05-0400 Diastolic blood pressure 74 mm[Hg] Dr. Fatoumata Red Work Phone: [facility] 01-19-2023 11:05-0400 Heart rate 58 /min Dr. Fatoumata Red Work Phone: [facility] 01-19-2023 11:05-0400 Respiratory rate 18 /min Dr. Fatoumata Red Work Phone: [facility] 01-19-2023 11:05-0400 SaO2% (BldA) [Mass fraction] 95 % Dr. Fatoumata Red Work Phone: [facility] 01-19-2023 11:05-0400 Systolic blood pressure 129 mm[Hg] Dr. Fatoumata Red Work Phone: [facility] 07-14-2021 09:15-0400 Body temperature 97.2 [degF] Jp Masci DO Work Phone: [facility] 07-14-2021 09:15-0400 Body weight 117.48 kg Jp Masci DO Work Phone: [facility] 07-14-2021 09:15-0400 Diastolic blood pressure 61 mm[Hg] Jp Masci DO Work Phone: [facility] 07-14-2021 09:15-0400 Heart rate 65 /min Jp Masci DO Work Phone: [facility] 07-14-2021 09:15-0400 SaO2% (BldA) [Mass fraction] 96 % Jp Masci DO Work Phone: [facility] 07-14-2021 09:15-0400 Systolic blood pressure 125 mm[Hg] Jp Masci DO Work Phone: [facility] 06-23-2021 10:49-0400 Diastolic blood pressure 51 mm[Hg] [facility] Work Phone: 06-23-2021 10:49-0400 Heart rate 59 /min [facility] Work Phone: 06-23-2021 10:49-0400 Respiratory rate 18 /min [facility] Work Phone: 06-23-2021 10:49-0400 SaO2% (BldA) [Mass fraction] 97 % [facility] Work Phone: 06-23-2021 10:49-0400 Systolic blood pressure 124 mm[Hg] [facility] Work Phone: 06-23-2021 08:07-0400 Body height 170.18 cm [facility] Work Phone: 06-23-2021 08:07-0400 Body mass index (BMI) [Ratio] 41.6 kg/m2 [facility] Work Phone: 06-23-2021 08:07-0400 Body temperature 98 [degF] [facility] Work Phone: 06-23-2021 08:07-0400 Body weight 120.65 kg [facility] Work Phone: Encounters Encounter Date Encounter Type Care Provider Facility Start: 12-23-2024 ambulatory Fatoumata Red [facility] Start: 12-23-2024 End: 12-23-2024 ambulatory Fatoumata Red Facility:[facility] Start: 11-28-2024 End: 11-28-[address] Fatoumata Red MD Work Phone: -Laboratory Start: 11-28-2024 End: 11-28-[address] Fatoumata Red MD -Laboratory Work Phone: Start: 11-28-2024 End: 11-28-2024 ambulatory Fatoumata Red Facility:[facility] Start: 06-19-2024 End: 06-19-2024 ambulatory Warren Ireland Facility:[facility] Start: 01-18-2024 End: 01-18-2024 [facility] Start: 01-01-2024 ambulatory Fatoumata Shannonsheryl Facility: [facility] Start: 03-14-2023 End: 03-14-2023 Admission to same day surgery center Dr. Fatoumata Red Work Phone: [facility]-Head Grinder/Special Procedures Work Phone: Start: 03-14-2023 End: 03-14-[address] Fatoumata Red Work Phone: [facility] Work Phone: Start: 02-20-2023 Non-patient / Non-visit Dr. Dario Red Work Phone: [facility] Work Phone: Start: 02-19-2023 Non-patient / Non-visit Dr. Dario Red Work Phone: [facility] Start: 02-15-2023 End: 02-15-[address] Fatoumata Red Work Phone: [facility] Work Phone: Start: 02-15-2023 End: 02-15-[address] Fatoumata Red Work Phone: [facility]-Cardiovascular Services Work Phone: Start: 02-15-2023 Non-patient / Non-visit Dr. Dario Red Work Phone: [facility] Start: 02-01-2023 End: 02-01-[address] Fatoumata Red Work Phone: [facility] Work Phone: Start: 02-01-2023 End: 02-01-[address] [facility]ata Red [facility]: Start: 01-27-2023 End: 01-27-[address] Fatoumata Red Work Phone: [facility]-N[facility], [facility] Work Phone: Start: 01-19-2023 End: 01-19-[address] Fatoumata Red Work Phone: [facility] Work Phone: Start: 01-13-2023 End: 01-13-2023 ambulatory [facility] Work Phone: Start: 01-13-2023 End: 01-13-2023 [facility]: Start: 09-18-2021 End: 09-18-2021 Patient encounter procedure Elio Bach MD Work Phone: Ophthalmology Comment on above: Type 2 diabetes bety itus without retinopathy (HCC) (Primary Dx); Pseudophakia of both eyes; Hx of LASIK; Essential hypertension; Hypercholesteremia Start: 09-10-2021 End: 09-10-2021 [facility] 3rd Flr Start: 09-02-2021 End: 09-02-2021 [facility] Start: 09-01-2021 Telephone encounter Jp cannon DO Work Phone: Hematology/Oncology Comment on above: Information Start: 07-19-2021 Telephone encounter Jp cannon DO Work Phone: Hematology/Oncology Comment on above: Results Start: 07-15-2021 End: 07-15-2021 [facility] Start: 07-14-2021 Telephone encounter Jp cannon DO Work Phone: Hematology/Oncology Comment on above: Orders Results Start: 07-14-2021 End: 07-14-2021 ambulatory Jp Denis DO Work Phone: Hematology/Oncology Comment on above: Smoldering myeloma ( Primary Dx) Start: 07-14-2021 End: 07-14-2021 Patient encounter procedure Jp Denis DO Work Phone: [facility] Start: 06-23-2021 End: 06-23-2021 Patient encounter procedure [facility]-Cat Scan, [facility] Start: 06-10-2021 End: 06-10-2021 Subsequent hospital visit by physician [facility] ([facility]) Work Phone: Radiology [facility] Comment on above: Multiple myeloma not having [...] DO Work Phone: Start: 08-06-2013 Colonoscopy Jp Denis DO Work Phone: Start: 09-27-2004 Lipid 1996 panel - Serum or Plasma Ct (I-Stat) Work Phone: History of laser ass isted in situ keratomileusis Hx of LASIK Elio Bach MD Work Phone: Laboratory test resu lt abnormal Abnormal laboratory test Plan of Treatment Date Care Activity Detail Author Start: 07-14-2024 DIABETES SCREEN DIABETES SCREEN [facility] Start: 07-14-2024 Diabetes Screening Diabetes Screening [facility] Start: 03-14-2023 Patient discharge [facility] Start: 12-09-2022 Covid-19 Vaccine ( season) Covid-19 Vaccine () [facility] Start: 12-09-2022 Influenza vaccination Influenza Vaccine (#1) [facility] Start: 07-14-2022 Adult depression screening assessment DEPRESSION SCREENING [facility] Start: 04-10-2022 Advance Directive Discussion Advance Directive Discussion [facility] Start: 04-10-2022 Depression Assessment Depression Assessment [facility] Start: 12-09-2021 Influenza vaccination INFLUENZA (Season Ended) [facility] Start: 06-23-2021 Diagnostic bone marrow biopsies & aspirations DX BONE MARROW BX & ASPIR [facility] Work Phone: Start: 05-13-2021 COVID-19 VACCINE (3 - Booster for Gustabo series) COVID-19 VACCINE (3 - Booster for Gustabo series) [facility] Start: 04-10-2021 ADVANCE DIRECTIVE DISCUSSION ADVANCE DIRECTIVE DISCUSSION [facility] Start: 2018 PNEUMOVAX AGE 65 AND OVER WITH 5YR LOOKBACK (#1) PNEUMOVAX AGE 65 AND OVER WITH 5YR LOOKBACK (#1) [facility] Start: 08-06-2016 Colonoscopy COLONOSCOPY [facility] Start: 08-06-2016 COLORECTAL CANCER SCREENING COLORECTAL CANCER SCREENING [facility] Start: 05-21-2014 Pneumococcal Vaccine: 65+ (2 - PCV) Pneumococcal Vaccine: 65+ (2 - PCV) [facility] Start: 2013 RSV Vaccine (1 - 1-dose 60+ series) RSV Vaccine (1 - 1-dose 60+ series) [facility] Start: 09-27-2009 Lipid 1996 panel - Serum or Plasma Lipid Screening [facility] Start: 09-27-2009 LIPID SCREEN LIPID SCREEN [facility] Start: 07-13-2009 PROSTATE CANCER SCREENING DISCUSSION PROSTATE CANCER SCREENING DISCUSSION [facility] Start: 2008 Influenza vaccination LUNG CANCER SCREENING [facility] Start: 2003 Influenza vaccination LUNG CANCER SCREENING [facility] Start: 2003 SHINGRIX VACCINE (1 of 2) SHINGRIX VACCINE (1 of 2) [facility] Start: 1998 COLOGUARD (FIT-DNA) COLOGUARD (FIT-DNA) [facility] Start: [address] COLONOGRAPHY [facility] Start: 1998 FECAL OCCULT BLOOD FECAL OCCULT BLOOD [facility] Start: 1998 SIGMOIDOSCOPY SIGMOIDOSCOPY [facility] Start: 1972 SHINGRIX VACCINE (1 of 2) SHINGRIX VACCINE (1 of 2) [facility] Start: 1972 Urine microalbumin profile [facility] Start: 1959 PNEUMOCOCCAL: 65+ (1 - PCV) PNEUMOCOCCAL: 65+ (1 - PCV) [facility] Start: 1953 ABDOMINAL AORTIC ANEURYSM SCREENING ABDOMINAL AORTIC ANEURYSM SCREENING [facility] CBC W Auto Different ial panel - Blood CBC + DIFF Lab STAT Multiple myeloma not having achieved remission (HCC) 07/14/2021 9:03 AM EDT [facility] Work Phone: CBC W Ordered Manual Differential panel - Blood PATHOLOGIST INTERPRETATION WITH CBC AND DIFF Lab Routine Smoldering myeloma 07/15/2021 10:27 AM EDT [facility] Work Phone: NM Heart Views W str ess and W radionuclide IV [facility] Patient Education Bone Marrow As piration and Biopsy Procedural Sedation Bone Marrow Biopsy [facility] Work Phone: Patient referral [facility] Work Phone: [facility] Immunizations Immunization Date Immunization Notes Care Provider Ar ruiz 05-21-2013 Pneumococcal Vaccine [facility] Work Phone: 05-21-2013 pneumococcal vaccine , unspecified formulation [facility] 12-09-2012 Influenza virus vaccine [facility] 12-09-2012 influenza virus vaccine, unspecified formulation Ct ([facility]) Work Phone: [facility] Payers Date Payer Category Payer Unknown [id number] 2024 Self-pay [id number] 2023 Private Health Insurance [facility] [id number] 2021 Unknown ANTHEM BLUE CROS S AND BLUE SHIELD ANTHEM MEDIBLUE HMO [id number] 2021-Present [phone] [address] HMO [id number] 2021 Unknown ANTHEM BLUE CROS S AND BLUE SHIELD ANTHEM MEDIBLUE HMO [id number] 2021-Present [phone] [address] [place] [address] HMO [id number] 2013 Unknown [id number] Medicare [id number] Private Health Insurance [facility] [id number] Unknown [id number] Unknown [id number] 62 Unknown [id number] 62 Unknown [id number] 62 Unknown [id number] 62 Unknown [id number] 62 Unknown [id number] Social History Date Type Detail Facility Start: 06-23-2021 End: 03-14-2023 Tobacco smoking status WAIS Unknown if ever smoked [facility] Start: 12-26-2014 None [facility] Start: 12-26-2014 Spouse/ Signif icant Other [facility] Start: 12-26-2014 Non-smoker [facility] Start: 1955 Sex Assigned At Male W [facility] Start: 07-17-2013 End: 08-03-2023 Tobacco smoking status NHIS Ex-smoker [facility] Work Phone: End: 04-10-2009 History of tobacco use Current smoker [facility] Work Phone: End: 04-10-2009 History of tobacco use Cigarette Smoker [facility] Work Phone: Start: 07-17-2013 End: 05-24-2021 Cigarettes smoked current (pack per day) - Reported 2 [facility] Start: 07-17-2013 End: 05-24-2021 Tobacco use and exposure Smokeless tobacco non-user [facility] Work Phone: Start: 05-24-2021 End: 07-14-2021 Alcohol intake Current non-drinker of alcohol (finding) [facility] Start: 1955 Sex Assigned At Not on file [facility] Start: 05-01-2021 End: 09-18-2021 Exposure to SARS-CoV-2 (event) Not sure [facility] Start: 05-24-[address] [facility] Medical Equipment Procedure Code Equipment Code Equipment Origin al Text Equipment Identifier Dates ([id number]) Knee arthroplast y wedge ()[id number] [id number] FDA Start: 08-30-2023 Orthopaedic ceme nt, antimicrobial ()[id number] [id number] FDA Start: 08-30-2023 Tibial insert ()[id number] [id number])[id number] FDA Start: 08-30-2023 Knee arthroplast y wedge ()[id number] [id number] FDA Start: 08-30-2023 ([id number]) Knee arthroplast y wedge ()[id number] 17)[id number])[id number] FDA Start: 08-30-2023 ([id number]) Uncoated knee ti jf prosthesis, metallic ()[id number] [id number])[id number] FDA Start: 08-30-2023 Uncoated knee fe mur prosthesis, metallic ()[id number] [id number])[id number] FDA Start: 08-30-2023 ([id number]) Knee femur stem prosthesis ()[id number] [id number] FDA Start: 08-30-2023 ([id number]) Knee femur stem prosthesis ()[id number] 17)[id number] FDA Start: 08-30-2023 ([id number]) Polymer orthopae dic cement restrictor, non-bioabsorbable, sterile ()[id number] 17)[id number])[id number] FDA Start: 08-30-2023 ([id number]) Polymer orthopae dic cement restrictor, non-bioabsorbable, sterile ()[id number]( 17)[id number])[id number] FDA Start: 08-30-2023 Mental Status Date Assessment Result Facility 06-23-2021 Cognitive function Voice/Name [facility] Work Phone: 06-23-2021 Cognitive function Level Of Cons ciousness Appropriate;Follows Commands;Drowsy;Responds to vocal stimuli [facility] Work Phone: Clinical Notes 02-08-2011 to 09-18-2021 Patient InstructionsMohirichard Bach MD - 09/18/2021 9:03 AM EDTTelephone Encounter - Nancy Quezada LPN - 09/01/2021 10:29 AM EDTTelephone Encounter - Sue Hannon - 09/01/2021 9:18 AM EDT Note Date & Type Note Facility 09-18-2021 Note HNO ID: [id number] Author: Elio Bach MD Service: ? Author [...] about the findings, diagnosis, and treatment options. [facility] 09-18-2021 Instructions Elio Bach MD - 09/18/2021 9:06 AM EDT Start: Systane Complete solution instill 1 drop 3 times daily Both Eyes. Recommended patient see Dr. Sue Wilks for refraction and glasses. If you have any questions please contact our office at [phone]. After office hours or on the weekend, please call Dr. Bach on his cell phone at [phone]. documented in this encounter [facility] 09-18-2021 History of Present illness Narrative [...] and treatment options. documented in this encounter [facility] 09-01-2021 Miscellaneous Notes Last OV notes faxed as directed. Nancy Quezada LPN Dr Soler's office at [facility] called requesting the last office note from pts last visit with Dr. Denis on 07/14/21. This was missing from the original fax they received. documented in this encounter [facility] 07-19-2021 Miscellaneous Notes Faxed as requested. [...] lab work to Dr. Dasia Helton his financial professional at the [facility] [place]. Jp Denis DO documented in this encounter [facility] 07-15-2021 Miscellaneous Notes Pt. Notified of results, will come in today for repeat CBC. Nancy Quezada LPN Please let him know that the CBC from today unexpectedly showed that all his blood counts were low. This may be laboratory error so ask him to have a repeat CBC on or Monday. Jp Denis DO documented in this encounter [facility] 07-14-2021 Note HNO ID: [id number] Author: Jp Denis, DO Service: ? Author Type: Physician Type: Progress Notes Filed: 07/14/2021 9:42 AM Note Text: Oncologic problem(s): 1) IgA lambda smoldering myeloma. HPI: The patient is a 66 yo male with a PMH significant for type 2 diabetes, CAD (SC x3-most recent 2010; each treated with PCI/stent--5 stents total--most recent 2010), atrial fibrillation, CKD, RA, DVT (IVC) and sensory neuropathy. Patient was referred to a financial professional for joint pain and elevated inflammatory markers. 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 No petechiae. NEUROLOGIC: smalltalk developer II-XII are grossly intact. No focal motor [...] Abs Lymph 1.00 - 4.00 k/uL 3.51 [place]% % 5.5 Abs [place] <0.87 k/uL 0.46 Eosin% % 3.3 Abs [...] mg/dL 0.6 Alkal (more content not included)... [facility] 07-14-2021 History of Present illness Narrative Oncologic problem(s): 1) IgA lambda smoldering myeloma. HPI: The patient is a 66 yo male with a PMH significant for type 2 diabetes, CAD (SC x3-most recent 2010; each treated with PCI/stent--5 stents total--most recent 2010), atrial fibrillation, CKD, RA, DVT (IVC) and sensory neuropathy. Patient was referred to a financial professional for joint pain and elevated inflammatory markers. 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 No petechiae. NEUROLOGIC: smalltalk developer II-XII are grossly intact. No focal motor [...] Abs Lymph 1.00 - 4.00 k/uL 3.51 [place]% % 5.5 Abs [place] <0.87 k/uL 0.46 Eosin% % 3.3 Abs [...] Staff Review Reviewed by Dasia Kessler MD ([id number]) MPA IgG, Serum 700 - 1,600 mg/dL 638 (L) MPA IgA, Serum 70 - 400 mg/dL 610 (H) MPA IgM, Serum 40 - 230 mg/dL [place] Free, Serum 3.30 - 19.40 mg/L 14.2 Lambda Free, Serum 5.7 - 26.3 mg/L 61.1 (H) K/L Ratio, Serum 0.26 - 1.65 0.23 (L) MPA Result No M protein is identified. M protein is present. (A) Interpretation (MPA) SEE COMMENT Staff Review (MPA) Reviewed by Dasia Kessler MD ([id number]) Component Latest Ref Rng & Units 05/30/2021 [...] 0.00 gm/24 Hr 0.04 (H) Staff Review ([facility]) Reviewed by Sirisha Wolfe MD, PhD. ([id number]) Result ([facility]) No M protein is identified. M protein is present. (A) Interpretation ([facility]) SEE COMMENT Staff Review ([facility]) Reviewed by Sirisha Wolfe MD, PhD. ([id number]) IMAGING: Whole-body CT 06/10/2021: RESULT: Please note [...] Mild-moderate atherosclerotic calcifications of the imaged aorta. Superintendent [employer] (topogram) images: No additional findings. ASSESSMENT/PLAN: (D47.2) [...] bone lesions. -Bone marrow biopsy performed at [facility] demonstrates 11% plasma cells. -By definition, [...] biopsy but second opinion regarding this from desktop support technician is needed. Plan: -Referral to Dr. Flor [...] Jp Denis DO documented in this encounter [facility] 07-14-2021 Miscellaneous Notes Orders filed. Jp Denis DO documented in this encounter [facility] 06-15-2021 Note HNO ID: [id number] Author: Jp Denis DO Service: ? Author Type: Physician Type: Progress Notes Filed: 06/16/2021 5:32 AM Note Text: Oncologic problem(s): 1) IgA lambda monoclonal gammopathy. HPI: The patient is a 66 yo male with a PMH significant for type 2 diabetes, CAD (SC x3-most recent 2010; each treated with PCI/stent--5 stents total--most recent 2010), atrial fibrillation, CKD, RA, DVT (IVC) and sensory neuropathy. Patient was referred to a financial professional for joint pain and elevated inflammatory markers. 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 No petechiae. NEUROLOGIC: smalltalk developer II-XII are grossly intact. No focal motor [...] Abs Lymph 1.00 - 4.00 k/uL 3.51 [place]% % 5.5 Abs [place] <0.87 k/uL 0.46 Eosin% % 3.3 Abs [...] U/L 16 Glu (more content not included)... [facility] 06-10-2021 Note HNO ID: [id number] Author: IVANNA Jensen) Service: ? Author Type: Residential Property Manager Type: Progress Notes Filed: 06/10/2021 2:03 PM [...] IV DATA: Not applicable SIGNED BY: RT Camila(Kilo) June 10, 2021 2:02 PM [facility] 06-10-2021 History of Present illness Narrative Radiology [...] PERIPHERAL IV DATA: Not applicable SIGNED BY: IVANNA Jensen) June 10, 2021 2:02 PM documented in this encounter [facility] 05-24-2021 Note HNO ID: [id number] Author: Jp Denis, DO Service: ? Author [...] PMH significant for type 2 diabetes, CAD (SC x3; each treated with PCI/stent--5 stents altogether), atrial fibrillation, CKD, RA and sensory neuropathy. Patient was referred to a financial professional for joint pain and elevated inflammatory markers. [...] No jaundice or rash. No petechiae. NEUROLOGIC: smalltalk developer II-XII are grossly intact. No focal motor [...] he has a chance to see his office machine embossograph operator then we can decide on timing of bone marrow biopsy. Plan: Lab work t (more content not included)... [facility] 02-08-2011 Evaluation note Diagnosis Onset Date Benign essential HTN chronic HLD (hyperlipidemia) chronic Presence of stent in coronar y artery February, chronic [facility] Work Phone: Evaluation noteNo assessment information available [facility] Work Phone: Evaluation note* Diagnosis Multiple myeloma not having achieved remission (HCC)- Primary Multiple myeloma, without mention of having achieved remission [facility] Diagnosis Smoldering myeloma- Primary Multiple myeloma, without mention of having achieved remission [facility] Diagnosis Smoldering myeloma- Primary Multiple myeloma, without mention of having achieved remission [facility] Diagnosis Type 2 diabetes mellitus without retinopathy (HCC)- Primary Type II or unspecified type diabetes mellitus without mention of complication, not stated as uncontrolled Pseudophakia of both eyes Lens replaced by other means Hx of LASIK Other states following surgery of eye and adnexa Essential hypertension Unspecified essential hypertension Hypercholesteremia Pure hypercholesterolemia [facility] Diagnosis Multiple myeloma not having achieved remission (HCC) Multiple myeloma, without mention of having achieved remission documented [facility] this encounter [facility] for [facility] (narrative)No reason for referral information available[facility] Work Phone: Chief Complaint and Reason for Visit Chief Complaint Monoclonal gammopath y Chief Complaint Monoclonal gammopath y EORDER & PAPER/FAX RESULTS TO Lora HELTON Chief Complaint Monoclonal gammopath y EORDER & PAPER/FAX RESULTS TO Lora HELTON RENAL FAILURE Chief Complaint 1 Y FU PREV PFM RT ARTIFICIAL KNEE JOINT, PAIN Reason for Visit Benign essential HTN HLD (hyperlipidemia) Presence of stent in coronary artery Chief Complaint 1 Y FU PREV PFM RT ARTIFICIAL KNEE JOINT, PAIN Atherosclerotic heart disease of [place] coronary a Atherosclerotic heart disease of [place] coronary a Amb Documentation Reason for Visit Benign essential HTN HLD (hyperlipidemia) Presence of stent in coronary artery Chief Complaint 1 Y FU PREV PFM RT ARTIFICIAL KNEE JOINT, PAIN Atherosclerotic heart disease of [place] coronary a Atherosclerotic heart disease [place] coronary a Atherosclerotic heart disease of [place] coronary a Amb Documentation ABN STRESS, FATIGUE, [...] Yes December 11:37am Living Will Yes December 16, 021 3:57pm Power of Fur Stylist Yes December 16, 2020 3:57pm Advance Directive Response Recorded Date/ Time Advance Directives Yes December 10:37am Living Will Yes December 16, 021 2:57pm Power of Fur Stylist Yes December 16, 2020 2:57pm Advance Directive Response Recorded Date/ Time Advance Directives on File Yes Decem 2022 8:08am Name of Medical Power of Fur Stylist ? unsure March 14, 2023 8:08am Advance Directives Yes March 14, 2023 8:08am Living Will Yes March 14 8:08am Power of Fur Stylist Yes March 14, 2023 8:08am Advance Directive [...] the event of a Fluress shortage, administer Pepin-Fluor 1 drop into both eyes as directed [...] Referral Specialty Diagnoses / Procedures Referred By Contac t Referred To Contact CT IMAGING Diagnoses Multiple myeloma not having achieved remission (HCC) Procedures CT WHOLE BODY SKULL TO KNEE WO IVCON UNLISTED COMPUTED TOMOGRAPHY PROCEDURE Jp Denis, DO [address] [place] [address] [place] [address] Referral ID Status Reason Start Date Expiration Date V isits Requested Visits Authorized [id number] Closed Auto-Generate d Referral 05/24/2021 06/23/2022 1 [...] or prosecute any alcohol or drug abuse patient.[facility] the event this information is protected by the Federal Confidentiality of Alcohol and Drug Abuse Patient Records regulations: The Federal rules restrict any use of the information to criminally investigate or prosecute any alcohol or drug abuse patient.[facility] Hospital[facility] the event this information is protected by the Federal Confidentiality of Alcohol and Drug Abuse Patient Records regulations: The Federal rules restrict any use of the information to criminally investigate or prosecute any alcohol or drug abuse patient.[facility] Hospital[facility] the event this information is protected by the Federal Confidentiality of Alcohol and Drug Abuse Patient Records regulations: The Federal rules restrict any use of the information to criminally investigate or prosecute any alcohol or drug abuse patient.[facility] Hospital[facility] the event this information is protected by the Federal Confidentiality of Alcohol and Drug Abuse Patient Records regulations: The Federal rules restrict any use of the information to criminally investigate or prosecute any alcohol or drug abuse patient.[facility] Hospital[facility] the event this information is protected by the Federal Confidentiality of Alcohol and Drug Abuse Patient Records regulations: The Federal rules restrict any use of the information to criminally investigate or prosecute any alcohol or drug abuse patient.[facility] Hospital[facility] the event this information is protected by the Federal Confidentiality of Alcohol and Drug Abuse Patient Records regulations: The Federal rules restrict any use of the information to criminally investigate or prosecute any alcohol or drug abuse patient.[facility] Reason for Visit (unrecogniz ed section [...] COMPUTED TOMOGRAPHY PROCEDURE Jp Denis, [address] [place] [address] [place] [address] Referral ID Status Reason Start Date Expiration Date V isits Requested Visits Authorized [id number] Closed Auto-Generate d Referral 05/24/2021 06/23/2022 1 1 Care Teams (unrecognized sec tion and content) Cook Pressure Relationship Specialty Start Date End Date Fatoumata Red [address] [place] [address] PCP - General Family Practice 06/22/21 Dasia Helton Referring Rheumatology 05/17/21 Cook Pressure Relationship Specialty Start Date End Date Fatoumata Red [address] [place] [address] PCP - General Family Practice 06/22/21 Dasia Helton Referring Rheumatology 05/17/21 Cook Pressure Relationship Specialty Start Date End Date Fatoumata Red [place] [address] PCP - General Family Practice 06/22/21 Dasia Helton Referring Rheumatology 05/17/21 Cook Pressure Relationship Specialty Start Date End Date Fatoumata Red [id number] [place] [address] PCP - General Family Practice 06/22/21 Dasia Helton Referring Rheumatology 05/17/21 Team Status: Active Member Role Status Dates Dr. Mary Walton MD Family Provider Active Dr. Fatoumata eRd MD Primary Care Provider Active Team Status: Inactive Member Role Status Dates Dr. Fatoumata Red MD Primary Care Prov ider, Attending Provider, Referring Provider Active Team Status: Inactive Member Role Status Dates Dr. Fatoumata Red MD Primary Care Provider, Referrin g Provider Active Dr. Jp Fried MD Active [facility] LINEMAN, HEAD LINEMAN-C Attending Provider Active Team Status: Inactive Member Role Status Dates Dr. Fatoumata Red MD Primary Care Provider Active Dr. Warren Olivarez DO Attending Provider Active Team Status: Inactive Member Role Status Dates Dr. Fatoumata Red MD Primary Care Provider Active Dr. Warren Olivarez DO Attending Provider, Referring Provider Active [facility] Relationship Specialty Start Date End Date Mary Walton MD PCP - General Internal Medicine 07/05/13 06/21/21 Dasia Helton MD Referring Rheumatology 05/17/21 Team Status: Active Member Role Status Dates Dr. Fatoumata Red MD Primary Care Provider Active [facility], HEAD LINEMAN-C Referring Provider, Other Provi jorge Active Dr. Marialuisa Salas MD Attending Provider Activ e Team Status: Active Member Role Status Dates Dr. Fatoumata Red MD Primary Care Provider Active [facility], HEAD LINEMAN-C Attending Provider Active Team Status: Inactive Member Role Status Dates Dr. Fatoumata Red MD Primary Care Provider Active [facility], HEAD LINEMAN-C Attending Provider, Referring P rovider Active Team Status: Active Member Role Status Dates Dr. Fatoumata Red MD Primary Care Provider Active Dr. Marialuisa Salas MD Attending Provider Activ e [facility], HEAD LINEMAN-C Referring Provider Active Team Status: Inactive Member [...] section and content) DATE CREATED AUTHOR 09/18/2021 [facility] DATE CREATED AUTHOR AUTHOR'S TAM ARRIAGA 12/29/2024 [facility] FOR RECORDS PERTAINING TO PATIENTS WHO ARE [...] BE BASED ON THE PRIMARY CLINICAL RECORDS. [employer] provides no warranty or guarantee of the accuracy or completeness of information in this document.
== END | disposition home or self-care (01) ==
LOC: LAB 14:36
PROVIDERS: PCP Family Medicine; Referring Provider Nurse Practitioner Gerontology; Visit Provider Nurse Practitioner Gerontology
DX: R06.02 Shortness of breath (principal); R53.83 Other fatigue; R06.09 Other forms of dyspnea
CPT/HCPCS: 36415; 80048; 83880; 84443; 85025

== ENCOUNTER → 2025-01-17 | Outpatient (CLI) | payer MEDICARE, SELFPAY | END | disposition home or self-care (01) | LOC: CVS 13:38 | PROVIDERS: PCP Family Medicine; Referring Provider Nurse Practitioner Gerontology; Visit Provider Nurse Practitioner Gerontology | DX: R06.02 Shortness of breath (principal) | CPT/HCPCS: 93306 ==

== ENCOUNTER → 2025-01-24 | Outpatient (CLI) | payer MEDICARE, SELFPAY ==
[2025-01-24 10:43] LABS: Cholesterol 187 mg/dL (<=200); Low Density Lipoprotein Calc. 114 mg/dL; Triglycerides 154 mg/dL; Very Low Density Lipoprotein 31 mg/dL (5-40); cholesterol:hdl ratio screen 4.45
[2025-01-24 13:05] LABS: Creatinine, Urine (random) 26.80 mg/dL (39.00-259.00); Microalbumin,Random Urine 20.0 mg/L (<20 mg/L)
== END | disposition home or self-care (01) ==
LOC: MTLAB 09:03
PROVIDERS: PCP Family Medicine; Referring Provider Family Medicine; Visit Provider Family Medicine
DX: E11.9 Type 2 diabetes mellitus without complications (principal); I10 Essential (primary) hypertension; I25.10 Atherosclerotic heart disease of native coronary artery without angina pectoris
CPT/HCPCS: 36415; 80061; 82043; 82570

== ENCOUNTER → 2025-01-30 | Outpatient (CLI) | payer MEDICARE, SELFPAY ==
--- OUTSIDE RECORDS SUMMARY | 2025-01-30 07:42 | XMS RPT_ITS | CCD ---
Author Organization [facility] Care Team Providers Care Property Management Intern Name Role Phone Dasia Helton Unavailable Fatoumata Red Primary Care Provider Dr. Fatoumata Red Primary Care Provider [phone] Dr. Fatoumata Red Referring Provider Can COPE, ASSIGNMENT OFFICER-C Monse Attending Provider Mary Walton MD Primary Care Provider Bossman TORIBIO, Dasia Unavailable Dr. Fatoumata Red Primary Care Provider [phone] Dr. Fatoumata Red Referring Provider Can COPE, ASSIGNMENT OFFICER-C Monse Attending Provider Can ASSIGNMENT OFFICER, ASSIGNMENT OFFICER-C Monse Referring Provider Can COPE, ASSIGNMENT OFFICER-C Monse Other Provider Dr. Marialuisa Salas Attending Provider Dr. Marialuisa Salas Attending Provider Can COPE, ASSIGNMENT OFFICER-C Monse Referring Provider Dr. Fatoumata Red MD Primary Care Provider Dr. Fatoumata Red MD Attending Provider [phone] Dr. Fatoumata Red MD Referring Provider Dr. Fatoumata Red MD Primary Care Physician Neda TORIBIO, Dr. Ham Attending Physician Neda TORIBIO, Dr. Ham Nurse Practitioner [phone] Alfonso TORIBIO, Dr. Jernigan Attending Physician Can ASSIGNMENT OFFICER-CMonse Attending Physician Can ASSIGNMENT OFFICER-C, Monse Referring Provider Miedel, Fatoumata Attending Unavailable Miedel, Fatoumata Primary Care Unavailable Miedel, Fatoumata Referring Unavailable Miedel, Fatoumata Attending Unavailable Miedel, Fatoumata Referring Unavailable Miedel, Fatoumata Primary Care Unavailable Can ASSIGNMENT OFFICER, Monse Attending Unavailable Can ASSIGNMENT OFFICERMonse Referring Unavailable Miedel, Fatoumata Primary Care Unavailable Miedel, Fatoumata Attending Unavailable Miedel, Fatoumata Referring Unavailable Miedel, Fatoumata Primary Care Unavailable Miedel, Fatoumata Attending Unavailable Miedel, Fatoumata Referring Unavailable Miedel, Fatoumata Primary Care Unavailable Miedel, Fatoumata Attending Unavailable Miedel, Fatoumata Referring Unavailable Miedel, Fatoumata Primary Care Unavailable Delon Hamilton Attending Unavailable Miedel, Fatoumata Primary Care Unavailable Warren Ireland Attending Unavailable Miedel, Fatoumata Referring Unavailable Miedel, Fatoumata Primary Care Unavailable Can COPE, Monse Attending Unavailable Miedel, Fatoumata Referring Unavailable Miedel, Fatoumata Primary Care Unavailable Can COPE, Monse Attending Unavailable Miedel, Fatoumata Primary Care Unavailable Delon Hamilton Attending Unavailable Miedel, Fatoumata Referring Unavailable Miedel, Fatoumata Primary Care Unavailable Miedel, Fatoumata Consulting Unavailable Miedel, Fatoumata Attending Unavailable Miedel, Fatoumata Primary Care Unavailable Miedel, Fatoumata Referring Unavailable Can COPE, Monse Attending Unavailable Monse North NP Referring Unavailable Miedel, Fatoumata Primary Care Unavailable Allergies Allergy Classification Reported Allergen(s) Allergy Type Date of Onset Reaction(s) Facility (11 sources) diphenhydrAMINE; Translations: [diphenhydramine HCl] Drug Allergy 07-17-[address] [facility] Work Phone: (7 sources) buPROPion Drug [facility] Medications Current Medications Medication Drug Class(es) Dates Sig (Normalized) Sig (Original) acetaminophen 500 mg oral tablet (8 sources) Start: 10-13-2023 Start: 09-01-2023 End: 10-13-2023 Acetaminophen 500 mg Tablet Discontinued 1000 mg PO THREE TIMES A DAY 90 0 September 01, 2023 12:00am October 13, 2023 1:48pm Do not take more than 3000 mg Tylenol in a 24-hour period. [id number] 200 actuat albuter ol 0.09 mg/actuat metered dose inhaler (11 sources) beta2-Adrenergic Agonist Start: 12-16-2020 Start: 12-16-2020 take 1 puff(s) by in halation every four hours as needed Albuterol Sulfate (Ventolin Hfa) 90 mcg/actuation HFA aerosol inhaler Active 1 - 2 PUFF INHALATION EVERY 4 HOURS NEEDED December 15, 2020 11:00pm amLODIPine 10 mg oral tablet (11 sources) Dihydropyridine Calcium Channel Juan Start: 06-16-2020 take 1 tablet by mouth once daily aspirin 81 mg delayed release oral tablet (20 sources) Platelet Aggregation Inhibitor, Nonsteroidal Anti-inflammatory Drug Start: 08-30-2023 take 1 tablet by mouth once daily Start: 01-31-2013 End: 06-16-2020 take 1 tablet [...] ophthalmic solution (1 source) Diagnostic Dye Start: 2 End: 2 fluorescein-b enoxinate 0.25-0.4 % 1 Drop (FLURESS) cholecalciferol 0.05 mg oral capsule (4 sources) Vitamin D Start: 5 take 1 capsule by mouth once daily clopidogrel 75 mg oral tablet (20 sources) P2Y12 Platelet Inhibitor Start: 3 End: 2 take 1 tablet by mouth once daily Comment on above: Take 75 mg by mouth once daily. Take 1 tablet by anaid th once daily. empagliflozin 10 mg oral tablet (20 sources) Sodium-Glucose Cotransporter 2 Inhibitor Start: 1 End: 2 take 1 tablet by mouth twice jerry ly empagliflozin (JARDIANCE) 10 mg tablet Take 10 mg by mouth twice daily. 0 Active Comment on above: Take 10 mg by mouth twice daily. escitalopram 20 mg oral tablet (18 sources) Serotonin Reuptake Inhibitor Start: 01-31-2013 take 1 tablet by mouth once daily Comment on above: Take 1 tablet by anaid th once daily. famotidine 20 mg oral tablet (4 sources) Histamine-2 Receptor Antagonist Start: 09-01-2023 take 1 tablet by mouth once daily furosemide 40 mg oral tablet (11 sources) Loop Diuretic Start: 06-16-2020 take 1 tablet by mouth once daily gabapentin 400 mg oral capsule (20 sources) Anti-epileptic Agent Start: 06-19-2024 take 2 capsules by mouth three times daily Start: 08-03-2023 End: 06-19-2024 take 1 capsule [...] 8:10am losartan potassium 50 mg oral tablet (11 sources) Angiotensin 2 Receptor Juan Start: 06-16-2020 take 1 tablet by mouth once daily metFORMIN hydrochloride 1000 mg oral tablet (11 sources) Biguanide Start: 06-16-2020 take 1 tablet by mouth twice daily phenylephrine hydrochloride 25 mg/ml ophthalmic solution (1 source) alpha-1 Adrenergic Agonist Start: 09-18-2021 End: 09-18-2021 PHENYLephrine 2.5 % 1 Drop (AK-DILATE, SINGH-SYNEPHRINE) proparacaine hydrochloride 5 mg/ml ophthalmic solution (1 source) Local Anesthetic Start: 09-18-2021 End: 09-18-2021 proparacaine 0.5 % 1 Drop (ALCAINE) rosuvastatin calcium 40 mg oral tablet (18 sources) HMG-CoA Reductase Inhibitor Start: 01-31-2013 take 1 tablet by mouth once daily Comment on above: Take 1 tablet by anaid th once daily. tropicamide 10 mg/ml ophthalmic solution (1 source) Anticholinergic Start: 09-18-2021 End: 09-18-2021 tropicamide 1 % 1 Drop (MYDRIACYL) Vitamin B Complex 1 EACH capsule (4 sources) Start: 01-31-2013 Start: 01-31-2013 Vitamin B Comp dean 1 EACH capsule Active 1 NMA PO DAILY January 31, 2013 12:00am SUPPLEMENT vitamin b12 0.5 mg oral tablet (11 sources) Vitamin B12 Start: 06-16-2020 take 1 tablet by anaid th once daily Start: 06-16-2020 take 1 tablet by anaid th once daily Cyanocobalamin (Vitamin B-12) 500 mcg tablet Active 500 ug PO DAILY June 16, 2020 1:00am SUPPLEMENT Completed/Discontinued Medications Medication Drug Class(es) Dates Sig (Normalized) Sig (Original) acetaminophen 325 mg / HYDROcodone bitartrate 5 mg oral tablet (18 sources) Opioid Agonist Start: 05-22-2013 End: 05-28-2013 [...] 4:35pm amitriptyline hydrochloride 25 mg oral tablet (18 sources) Tricyclic Antidepressant Start: 07-17-2013 take 1 [...] at bedtime. apixaban 5 mg oral tablet (17 sources) Factor Xa Inhibitor Start : 06-16 End: 08-02 take 1 tablet by mouth twice daily Apixaban (Eliquis) 5 mg tablet Discontinued 5 mg PO TWICE A DAY June 16, 2020 1:00am August 03, 2023 8:06am Comment on above: Take 5 mg by mouth t wice daily. benzonatate 100 mg oral capsule (11 sources) Non-narcotic Antitussive Start : 12-16 End: 11-19 take 1 capsule by mouth three times daily as needed for cough Benzonatate (Tessalon Perles) 100 mg capsule Discontinued 100 mg PO THREE TIMES A DAY as needed for cough 20 0 December 16, 2020 5:28pm November 19, 2021 2:01pm cefepime 2000 mg injection (4 sources) Cephalosporin Antibacterial Start : 08-30 End: 10-12 Cefepime 2 gram Recon Soln Discontinued 2 g IV EVERY 12 HOURS 84 42 0 August 31, 2023 12:00am October 13, 2023 1:47pm stop date 10/12/23. Dx: knee PJI Weekly bmp, cbc, and esr. Fax to [phone]. Routine picc care per protocol. COMPOUNDED PRESCRIPTION [...] ml enoxaparin sodium 100 mg/ml prefilled syringe (11 sources) Low Molecular Weight Heparin Start : 05-22 End: 05-29 Enoxaparin 40 MG/0.4 ML syringe Discontinued 40 mg SC DAILY@0600 7 0 May 22, 2013 1:00am May 29, 2013 11:05am CONT UNTIL INR THERAPEUTIC hydroCHLOROthiazide 12.5 mg oral capsule (11 sources) Thiazide Diuretic Start : 12-09 End: 06-16 take 1 capsule by mouth once daily Hydrochlorothiazide 12.5 MG capsule Discontinued 12.5 mg PO DAILY 30 0 December 09, 2014 12:00am June 16, 2020 5:48pm hydroCHLOROthiazide 25 mg / triamterene 37.5 mg oral capsule (18 sources) Potassium-sparing Diuretic, Thiazide Diuretic Start : [...] Comment on above: Take 1 capsule by [facility] once daily. Hydrocodone-Acetamino phen 1 EACH tablet (4 sources) Start: 3 End: 4 Hydrocodone-Acetamino phen 1 EACH tablet Discontinued 1 - 2 {tbl} PO EVERY 4 HOURS NEEDED as needed for Pain January 31, 2013 12:00am 2013 4:35pm 3 ml insulin glargine 100 unt/ml pen injector (11 sources) Insulin Analog Start: 1 End: 4 Insulin Glargine (Lantus Solostar U-100 Insulin) 100 unit/mL (3 mL) insulin pen Discontinued 20 U SC EVERY EVENING June 16, 2020 1:00am November 07, 2023 8:50am DIABETES 3 ml insulin lispro 100 unt/ml pen injector (11 sources) Insulin Analog Start: 1 End: 4 Insulin Lispro (Humalog Kwikpen Insulin) 100 unit/mL insulin pen Discontinued 8 U SC THREE TIMES A DAY June 16, 2020 1:00am November 07, 2023 8:50am DIABETES J-Appnogy-H5 Yapx-Ymrwiv-C76 3-35-2 mg tab or Capsule (7 sources) Start: 4 take 1 tablet by mouth twice daily U-Qhoylmf-D3 Qbdj-Vuuzgz-H83 3-35-2 mg tab or Capsule Take 1 tablet by mouth twice daily. 0 07/17/2013 Active Comment on above: [facility] lansoprazole 30 mg delayed release oral capsule (18 sources) Proton Pump Inhibitor Start: 3 End: 2 take 1 capsule by mouth once daily Lansoprazole 30 MG capsule Discontinued 30 mg PO DAILY January 31, 2013 12:00am November 19, 2021 2:00pm Comment on above: Take 1 capsule by [facility] once daily. Tkvvgrprp-G1-Vku23-Al gal Oil (7 sources) Start: 3 End: 1 Pglwcnwiu-U0-Jvr78-Al gal Oil Discontinued 1 EACH PO DAILY January 31, 2013 11:02am June 16, 2020 5:48pm Start: 01-31-2013 End: 06-16-2020 Hygryhnlb-C4-Ubb04-Algal Oil Discontinued 1 EACH PO DAILY January 30, 2013 11:00pm June 16, 2020 4:48pm Start: 01-31-2013 End: 06-16-2020 Akgfkedvp-E5-Yag54-Algal Oil Discontinued 1 EACH PO DAILY January 31, 2013 12:00am June 16, 2020 5:48pm Aojczudup-H2-Liv04-Algal Oil 1 EACH capsule (4 sources) Start: 01-31-2013 End: 06-16-2020 Nitumpawh-G4-Ppz96-Algal Oil 1 EACH capsule Discontinued 1 NMA PO DAILY January 31, 2013 12:00am June 16, 2020 5:48pm lisinopril 5 mg oral tablet (18 sources) Angiotensin Converting Enzyme Inhibitor Start: 07-17-2013 [...] twice daily. methotrexate 2.5 mg oral tablet (19 sources) Folate Analog Metabolic Inhibitor Start: End: 4 take 4 tablets by mouth twice daily Methotrexate Sodium 2.5 mg tablet Discontinued 10 mg PO .COMPLEX November 19, 2021 12:00am August 03, 2023 8:13am 4 tablets BID on Wednesdays only; Start: 11-19-2021 take 4 tablets by mo [facility] twice daily Methotrexate Sodium Active 10 MG [...] 1 tablet by anaid th once daily Comment on above: Take 1 tablet by anaid th once daily. naproxen 500 mg oral tablet (11 sources) Nonsteroidal Anti-inflammatory Drug Start: End: take 1 tablet by mouth once daily as needed for pain Naproxen 500 mg tablet Discontinued 500 mg PO DAILY as needed for Muscle Pain December 31, 2020 12:00am September 01, 2023 1:35pm ondansetron 4 mg oral tablet (11 sources) Serotonin-3 Receptor Antagonist Start: End: take 1 tablet by mouth every eight hours as needed for nausea and vomiting Ondansetron Hcl (Zofran) 4 mg tablet Discontinued 4 mg PO Q8H as needed for nausea and vomiting 14 0 December 16, 2020 12:00am August 03, 2023 8:13am oxyCODONE hydrochloride 5 mg oral tablet (4 sources) Opioid Agonist Start: End: take 5-10 mg [...] knee joint predniSONE 5 mg oral tablet (11 sources) Start: End: take 1 tablet by mouth once daily Prednisone 5 mg Tablet Discontinued 5 mg PO DAILY June 23, 2021 12:00am November 19, 2021 2:05pm rivaroxaban 10 mg oral tablet (4 sources) Factor Xa Inhibitor Start: End: take 1 tablet by mouth once daily Rivaroxaban (Xarelto) 10 mg Tablet Discontinued 10 mg PO DAILY@0600 13 0 September 01, 2023 12:00am November 07, 2023 9:12am Take for 2 weeks postoperatively for DVT prophylaxis due to previous history of pulmonary embolism tamsulosin hydrochloride 0.4 mg oral capsule (11 sources) alpha-Adrenergic Juan Start: End: take 1 [...] Chronic Chronic obstructive pulmonary disease and bronchiectasis (11 sources) Bronchitis; Translations: [Bronchitis, not specified as acute or chronic] 12-16-2020 Episodic Complication of device; implant or graft (4 sources) Prosthetic joint infection; Translations: [Infection and inflammatory reaction due to unspecified internal joint prosthesis, initial encounter] 08-31-2023 Episodic Conditions associated with dizziness or vertigo (8 sources) Dizziness; Translations: [Dizziness and giddiness] 11-19-2021 Episodic Coronary atherosclerosis and other heart disease (16 sources) Coronary atherosclerosis; Translations: [Atherosclerotic heart disease of [place] coronary artery without angina pectoris] Onset: 01-03-2025 06-18-2020 Chronic Diabetes mellitus with complications (1 source) Type 2 diabetes mellitus with diabetic chronic kidney disease; Translations: [Type 2 diabetes mellitus with diabetic chronic kidney disease] Onset: 12-04-2024 Chronic Diabetes mellitus without complication (13 sources) Type 2 diabetes mellitus; Translations: [Type 2 diabetes mellitus without complications] Onset: 01-24-2025 Chronic Disorders of lipid metabolism (18 sources) Hyperlipidemia; Translations: [Hyperlipidemia, unspecified] Chronic Essential hypertension (19 sources) Benign essential hypertension; Translations: [Essential (primary) hypertension] Onset: 01-24-2025 Chronic Malaise and fatigue (10 sources) Fatigue; Translations: [Other fatigue] Onset: 12-30-2024 02-20-2023 Episodic Multiple myeloma (2 sources) Multiple myeloma; Translations: [Multiple myeloma not having achieved remission] Chronic Neoplasms of unspecified nature or uncertain behavior (8 sources) Smoldering myeloma; 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] Onset: 06-16-2021 07-14-2021 Chronic Nonspecific chest pain (1 source) Chest pain, unspecified; Translations: [Chest pain, unspecified] Onset: 01-03-2025 Episodic Other connective tissue disease (4 sources) History of revision of left total knee arthroplasty; Translations: [Presence of left artificial knee joint] 08-31-2023 Chronic Other lower respiratory disease (9 sources) Dyspnea on exertion; Translations: [Other forms of dyspnea] 02-20-2023 Episodic Other lower respiratory disease (1 source) Dyspnea, unspecified; Translations: [Dyspnea, unspecified] Onset: 01-28-2025 Episodic Other lower respiratory disease (2 sources) Shortness of breath; Translations: [Shortness of breath] Onset: 01-05-2025 Episodic Other lower respiratory disease (1 source) Other forms of dyspnea; Translations: [Other forms of dyspnea] Onset: 12-30-2024 Episodic Other screening for suspected conditions (not mental disorders or infectious disease) (6 sources) Cardiovascular stress test abnormal; Translations: [Abnormal result of other cardiovascular function study] 02-20-2023 Episodic Peripheral and visceral atherosclerosis (1 source) Peripheral vascular disease, unspecified; Translations: [Peripheral vascular disease, unspecified] Onset: 01-28-2025 Chronic Phlebitis; thrombophlebitis and thromboembolism (11 sources) Deep venous thrombosis; Translations: [Acute embolism and thrombosis of unspecified deep veins of unspecified lower extremity] 06-16-2020 Episodic Pulmonary heart disease (14 sources) H/O: pulmonary embolus; Translations: [Personal history of pulmonary embolism] 06-16-2020 Episodic Substance-related disorders (11 sources) Tobacco dependence in remission; Translations: [Nicotine dependence, unspecified, in remission] 06-16-2020 Chronic Past or Other Problems Problem Classification Problem Date Documented Da te Episodic/Chronic Coronary atherosclerosis and other heart disease (14 sources) Stented coronary artery; Translations: [Presence of [...] colon, unspecified] Onset: 08-15-2013 08-15-2013 Episodic Unclassified (11 sources) Medical management 06-16-2020 Results Test Name Value Interpretation Reference Range Facility Lipid Profileon 01-24-2025 CHOL:HDL 4.45 Normal [facility] Comment on above: Performed By: #### L 502.0250, L500.4100 ####[facility] [address] [place], [address] Cholesterol [Mass/Vol] 187 mg/dL Normal <=200 [facility] Comment on above: Result Comment: Chol esterol level, Desirable <200 mg/dL Borderline high cholesterol 200-239 mg/dL High cholesterol >=240 mg/dL Recommendations of the NCEP Adult Treatment Panel for the following risk-cutoff thresholds for the [place] population. Performed By: #### L 502.0250, L500.4100 ####[facility] [address] [place], [address] Cholesterol in HDL [Mass/Vol] 42 mg/dL Normal [facility] Comment on above: Result Comment: Bridgett onal Cholesterol Education Program (NCEP) guidelines: <40 mg/dL: Low HDL-cholesterol (major risk factor for CHD) >= 60 mg/dL: High HDL-cholesterol (negative risk factor for CHD) HDL-cholesterol is affected by a number of factors, e.g. smoking, exercise, hormones, sex and age. Performed By: #### L 502.0250, L500.4100 ####[facility] [address] [place], [address] Cholesterol in LDL [Mass/Vol] 114 mg/dL Normal [facility] Comment on above: Result Comment: Bord ubwixx=184-132 mg/dL Higher Rcve=522 mg/dL or greater Friedwald Equation for LDL-C Performed By: #### L 502.0250, L500.4100 ####[facility] [address] [place], [address] Cholesterol in VLDL [Mass/Vol] 31 mg/dL Normal 5-40 [facility] Comment on above: Performed By: #### L 502.0250, L500.4100 ####[facility] [address] [place], [address] Triglyceride [Mass/Vol] 154 mg/dL Normal [facility] Comment on above: Result Comment: The drugs N-Acetylcysteine and Metamizole may falsely depress this assay. Normal range: <150 mg/dL Borderline High: 150-199 mg/dL High: 200-499 mg/dL Very High: >500 mg/dL Performed By: #### L 502.0250, L500.4100 ####[facility] [address] [place], [address] Microalb:Creat Ratio,Random URon 01-24-2025 Creatinine [Mass/Vol] 26.80 mg/dL Low 39.00-259.00 [facility] Comment on above: Performed By: #### L 502.0250, L500.4100 ####[facility] [address] [place], [address] MALB:CREAT 74.6 mg/g CRE High <30 mg/g CRE [facility] Comment on above: Performed By: #### L 502.0250, L500.4100 ####[facility] [address] [place], [address] MICROALBUMIN,UR 20.0 mg/L Normal <20 mg/L [facility] Comment on above: Performed By: #### L 502.0250, L500.4100 ####[facility] [address] [place], [address] Echo Completeon 01-17-2025 Echo Complete [facility] [address] [place] [address] Echo Complete 01/17/25 1356 MR#: [id number] Acct: [id number] Name: SHELBI GARCIA BEV Rep #: [id number] : 1955 69 From: Delon Hamilton MD Attending Dr: Monse North NP-C Status: [facility] Ordering Dr: Monse North ASSIGNMENT OFFICER ASSIGNMENT OFFICER-C Date: 01/17/25 Location: [facility] Sex: M C Admitted: Reason For Study Reason For Study: SOB Procedure This was a 2D Doppler, Color Flow transthoracic echocardiogram. Exam performed in department. Left Ventricle Normal size and thickness. Apical false tendon noted. The left ventricular ejection fraction is 65 %. Stage 2 diastolic dysfunction. Right Ventricle Normal right ventricle. Atria There is mild biatrial dilatation. Mitral Valve Mild mitral annular calcification. Mild-Moderate (1-2+) mitral valve insufficiency. Tricuspid Valve Mild-Moderate (1-2+) tricuspid valve insufficiency. Right ventricular systolic pressure estimated to be 48 mmHg. Aortic Valve Trisinus/trileaflet aortic valve. Pulmonic Valve The pulmonic valve is not well visualized. Great Vessels Normal sized aortic root. Pericardium/Pleural No pericardial effusion. MMode/2D Measurements Calculations LVIDd: 5.4 cm IVSd: 0.82 cm Ao root diam: 3.2 cm LVIDs: 3.1 cm LVPWd: 1.1 cm RVDd: 3.6 cm FS: 42.1 % LAV(MOD-bp): 61.5 ml LVAd ap4: 28.8 cm2 LVAd ap2: 35.9 cm2 LAV(MOD-bp) Indexed: 26.9 ml/m2 LVLd ap4: 8.4 cm LVLd ap2: 8.9 cm LAV(MOD-sp2): 60.7 ml EDV(MOD-sp4): 83.0 ml EDV(MOD-sp2): 122.5 ml LAV(MOD-sp4): 59.1 ml EDV(sp4-el): 84.1 ml EDV(sp2-el): 122.7 ml LVAs ap4: 16.2 cm2 LVAs ap2: 19.4 cm2 LVLs ap4: 6.8 cm LVLs ap2: 7.1 cm ESV(MOD-sp4): 32.7 ml ESV(MOD-sp2): 45.6 ml ESV(sp4-el): 32.7 ml ESV(sp2-el): 44.5 ml EF(MOD-sp4): 60.6 % EF(MOD-sp2): 62.7 % EF(sp4-el): 61.1 % SV(MOD-sp4): 50.2 ml SV(MOD-sp2): 76.8 ml SV(sp4-el): 51.4 ml SI(MOD-sp4): 22.0 ml/m2 SI(MOD-sp2): 33.7 ml/m2 LA A4 area: 19.7 cm2 LA dimension(2D): 4.2 cm RA A4 area: 19.8 cm2 TAPSE: 2.1 cm Time Measurements MV dec time: 0.17 sec Doppler Measurements Calculations MV E max greta: 134.0 cm/sec Lat Peak E' Greta: 8.0 cm/sec Med Peak E' Greta: 7.9 cm/sec MV A max greta: 79.2 cm/sec E/E' lat: 16.7 E/E' med: 17.0 MV E/A: 1.7 Ao V2 max: 160.3 cm/sec LV V1 max: 122.1 cm/sec MV dec slope: 775.8 cm/sec2 Ao max P.3 mmHg LV V1 max P.0 mmHg Ao V2 mean: 114.4 cm/sec LV V1 mean P.2 mmHg Ao mean P.7 mmHg LV V1 mean: 82.9 cm/sec Ao V2 VTI: 37.9 cm LV V1 VTI: 31.2 cm AV (velocity ratio): 0.83 PA V2 max: 123.2 cm/sec TR max greta: 287.0 cm/sec TR max P.0 mmHg ECHO/Echo Complete Interpretation Summary The left ventricular ejection fraction is 65 %. Stage 2 diastolic dysfunction. There is mild biatrial dilatation. Mild-Moderate (1-2+) mitral valve insufficiency. Mild-Moderate (1-2+) tricuspid valve insufficiency. Right ventricular systolic pressure estimated to be 48 mmHg. Ordering Physician: Monse North Referring Physician: Fatoumata Red Performed By: Margaret Coronado RDCS 01/17/251514 Date Delon Hamilton MD CC: ASSIGNMENT OFFICER-C Monse North; Dr. Fatoumata Red MD Date Dictated: 01/17/25 1356 Date Transcribed: 01/17/251514 Construction Job Titles: Signed Normal [facility] Absolute lymphocyte countOrd ered By: Monse North on 12-30-2024 Lymphocytes Auto (Unsp spec) [#/Vol] 3.63 10*3/uL 0.83-4.51 [facility] Absolute neutrophil countOrd ered By: Monse North on 12-30-2024 Neutrophils (Bld) [#/Vol] 4.2 10*3/uL 2.0-7.7 [facility] Anion gap in Serum or Plasma Ordered By: Monse North on 12-30-2024 Anion gap [Moles/Vol] 13 mmol/L 5- [facility] Automated lymphocyte count a s percentage of total leukocytesOrdered By: Monse North on 12-30-2024 Lymphocytes/100 WBC Auto (Unsp spec) 42.2 % High 19-41 [facility] BUN/creatinine ratioOrdered By: Monse North on 12-30-2024 Urea nitrogen/Creatinine [Mass ratio] 17.0 mg/mg 01-27 [facility] Basic Metabolic Profile (BMP )on 12-30-2024 BUN/CRE 17.0 RATIO Normal 01-27 [facility] Comment on above: Performed By: #### L 500.2500, L100.0100, L503.7505, L501.9520 #### [facility] [address] [place], [address] Calcium [Mass/Vol] 9.0 mg/dL Normal 7.6-11.0 [facility] Comment on above: Performed By: #### L 500.2500, L100.0100, L503.7505, L501.9520 #### [facility] [address] [place], [address] Chloride [Moles/Vol] 104 mmol/L Normal 98-108 [facility] Comment on above: Performed By: #### L 500.2500, L100.0100, L503.7505, L501.9520 #### [facility] [address] [place], [address] CO2 [Moles/Vol] 22.9 mmol/L Normal 21.0-32.0 [facility] Comment on above: Performed By: #### L 500.2500, L100.0100, L503.7505, L501.9520 #### [facility] [address] [place], [address] Creatinine [Mass/Vol] 1.79 mg/dL High 0.70-1.20 [facility] Comment on above: Performed By: #### L 500.2500, L100.0100, L503.7505, L501.9520 #### [facility] [address] [place], [address] GAP 13 Normal 5-15 [facility] Comment on above: Performed By: #### L 500.2500, L100.0100, L503.7505, L501.9520 #### [facility] [address] [place], [address] GFR/1.73 sq M.predicted among non-blacks MDRD (S/P/Bld) [Vol rate/Area] 40 mL/min/{1.73_m2} Low >60 [facility] Comment on above: Result Comment: mL/m in/1.73m2 CKD-EPI Creatinine Equation (2020) Performed By: #### L 500.2500, L100.0100, L503.7505, L501.9520 #### [facility] [address] [place], [address] Glucose [Mass/Vol] 114 mg/dL High 70-99 [facility] Comment on above: Performed By: #### L 500.2500, L100.0100, L503.7505, L501.9520 #### [facility] [address] [place], [address] Potassium [Moles/Vol] 4.6 mmol/L Normal 3.3-5.1 [facility] Comment on above: Performed By: #### L 500.2500, L100.0100, L503.7505, L501.9520 #### [facility] [address] [place], [address] Sodium [Moles/Vol] 140 mmol/L Normal 133-145 [facility] Comment on above: Performed By: #### L 500.2500, L100.0100, L503.7505, L501.9520 #### [facility] [address] [place], [address] Urea nitrogen [Mass/Vol] 31 mg/dL High 4-19 [facility] Comment on above: Performed By: #### L 500.2500, L100.0100, L503.7505, L501.9520 #### [facility] [address] [place], [address] Basophil percentageOrdered B y: Monse North on 12-30-2024 Basophils/100 WBC (Bld) 0.6 % 0-1 [facility] CBC W/Diff, Automatedon 12-10 Absolute Lymph 3.63 X10 3/uL Normal 0.83-4.51 [facility] Comment on above: Performed By: #### L 500.2500, L100.0100, L503.7505, L501.9520 #### [facility] [address] [place], [address] Absolute Neut 4.2 X10 3/uL Normal 2.0-7.7 [facility] Comment on above: Performed By: #### L 500.2500, L100.0100, L503.7505, L501.9520 #### [facility] [address] [place], [address] Basophils/100 WBC (Bld) 0.6 % Normal 0-1 [facility] Comment on above: Performed By: #### L 500.2500, L100.0100, L503.7505, L501.9520 #### [facility] [address] [place], [address] Eosinophils/100 WBC (Bld) 3.3 % Normal 0-5 [facility] Comment on above: Performed By: #### L 500.2500, L100.0100, L503.7505, L501.9520 #### [facility] [address] [place], [address] Erythrocyte distribution width (RBC) [Ratio] 14.0 % Normal 11.6-14.6 [facility] Comment on above: Performed By: #### L 500.2500, L100.0100, L503.7505, L501.9520 #### [facility] [address] [place], [address] Hematocrit (Bld) [Volume fraction] 40.3 % Normal 40-54 [facility] Comment on above: Performed By: #### L 500.2500, L100.0100, L503.7505, L501.9520 #### [facility] [address] [place], [address] Hemoglobin (Bld) [Mass/Vol] 13.0 g/dL Normal 13.0-16.5 [facility] Comment on above: Performed By: #### L 500.2500, L100.0100, L503.7505, L501.9520 #### [facility] [address] [place], [address] IG% 0.200 Normal 0.0-0.9 [facility] Comment on above: Result Comment: IG% - Immature Granulocytes (promyelocytes, myelocytes and metamyelocytes) > 1% indicates that a LEFT SHIFT is Present. Performed By: #### L 500.2500, L100.0100, L503.7505, L501.9520 #### [facility] [address] [place], [address] Lymphocytes/100 WBC (Bld) 42.2 % High 19-41 [facility] Comment on above: Performed By: #### L 500.2500, L100.0100, L503.7505, L501.9520 #### [facility] [address] [place], [address] MCH (RBC) [Entitic mass] 32.7 pg High 27.0-32.0 [facility] Comment on above: Performed By: #### L 500.2500, L100.0100, L503.7505, L501.9520 #### [facility] [address] [place], [address] MCHC (RBC) [Mass/Vol] 32.3 g/dL Normal 32-36 [facility] Comment on above: Performed By: #### L 500.2500, L100.0100, L503.7505, L501.9520 #### [facility] [address] [place], [address] MCV (RBC) [Entitic vol] 101.5 fL High 80-94 [facility] Comment on above: Performed By: #### L 500.2500, L100.0100, L503.7505, L501.9520 #### [facility] [address] [place], [address] Monocytes/100 WBC (Bld) 5.0 % Normal 0-10 [facility] Comment on above: Performed By: #### L 500.2500, L100.0100, L503.7505, L501.9520 #### [facility] [address] [place], [address] Neutrophils/100 WBC (Bld) 48.7 % Normal 47-70 [facility] Comment on above: Performed By: #### L 500.2500, L100.0100, L503.7505, L501.9520 #### [facility] [address] [place], [address] Nucleated RBC (Bld) [#/Vol] 0 10*3/uL Normal 0-5 [facility] Comment on above: Performed By: #### L 500.2500, L100.0100, L503.7505, L501.9520 #### [facility] [address] [place], [address] Platelet mean volume (Bld) [Entitic vol] 11.4 fL Normal 6.2-12.0 [facility] Comment on above: Performed By: #### L 500.2500, L100.0100, L503.7505, L501.9520 #### [facility] [address] [place], [address] Platelets (Bld) [#/Vol] 201 10*3/uL Normal 150-450 [facility] Comment on above: Performed By: #### L 500.2500, L100.0100, L503.7505, L501.9520 #### [facility] [address] [place], [address] RBC (Bld) [#/Vol] 3.97 10*6/uL Low 4.6-6.2 [facility] Comment on above: Performed By: #### L 500.2500, L100.0100, L503.7505, L501.9520 #### [facility] [address] [place], [address] RDW SD 52.5 fl High 35.1-43.9 [facility] Comment on above: Performed By: #### L 500.2500, L100.0100, L503.7505, L501.9520 #### [facility] [address] [place], [address] WBC (Bld) [#/Vol] 8.6 10*3/uL Normal 4.4-11.0 [facility] Comment on above: Performed By: #### L 500.2500, L100.0100, L503.7505, L501.9520 #### [facility] [address] [place], [address] Carbon dioxide, total [Moles /volume] in Central venous bloodOrdered By: Monse Notrh on 12-30-2024 CO2 [Moles/Vol] 22.9 mmol/L 21.0-32.0 [facility] Visit Reporton Cardiology Visit Report [facility] [address] [place] [address] OFFICE VISIT Date of Service: 12/30/24 MR#: [id number] Acct: [id number] Name: SHELBI GARCIA Rep #: [id number] : 1955 Provider: CHUY self Age/Sex: 69/M Location: [facility] Status: Signed HPI HPI History of Present Illness Details: This is a 69-year-old male who presents today for cardiovascular follow-up visit. Patient carries a history of known coronary [...] pressure normally runs 118???120/70 in his home environment. He also has a history of hyperlipidemia last lipids January 2024 were excellent with a total cholesterol 110, HDL 39, LDL 50, and triglycerides 106. He is on intensive statin therapy with rosuvastatin 40 mg daily. The patient also has a history of DVTs and PEs. He states he is not on any oral anticoagulation. From a cardiac standpoint, the patient is doing well. He denies any palpitations, chest pain, pressure or heaviness. He does acknowledge SOB with exertion and at rest. He denies Orthopnea, and PND. He does not have bleeding issues; no blood in urine, stool, or nosebleeds. He does acknowledge fatigue. He does acknowledge myalgias and weakness in his lower legs. He does have neuropathy. He denies claudication. He does acknowledge BLE edema. He does not have sudden weight gain. He denies lightheadedness, dizziness, syncopal or near syncopal episodes, and headaches. Intake Vital Signs 06/19/24 13:44 12/30/24 07:14 Height 5 ft 7 in 5 ft 7 in Weight: 266 lb BMI 41.6 BP 154/82 H Blood Pressure Location Lt brachial Position Sitting Respiration 18 Pulse 64 Pulse Source Monitor Pulse Oximetry (%) 96 Intake Visit Reasons: 6 M FU Shipper Required: No Is patient in pain?: No Allergies diphenhydramine HCl (From Benadryl) Allergy (Verified 12/30/24 14:21) Hives Medications ???Medication ???Instructions ???Recorded ???Confirmed ???Type escitalopram oxalate 20 mg tablet 20 mg PO DAILY ANTIDEPRESSANT 12/30/24 History rosuvastatin 40 mg tablet 40 mg PO DAILY CHOLESTEROL 3 12/30/24 History vitamin B complex 1 ea PO DAILY SUPPLEMENT 01/31/13 12/30/24 History clopidogrel 75 mg tablet 75 mg PO DAILY BLOOD THINNER ##30 05/22/13 12/30/24 Rx amlodipine 10 mg tablet 10 mg PO DAILY BP 06/16/20 5 History cyanocobalamin (vitamin B-12) 500 500 mcg PO DAILY SUPPLEMENT 06/1612/30/24 History mcg tablet furosemide 40 mg tablet 40 mg PO DAILY WATER PILL 06/16/20 12/30/24 History losartan 50 mg tablet 50 mg PO DAILY BP 06/16/20 5 History metformin 1,000 mg tablet 1,000 mg PO BID DIABETES 06/16/20 12/30/24 History metoprolol succinate 50 mg 50 mg PO DAILY BP 06/16/20 5 History tablet,extended release 24 hr albuterol sulfate 90 mcg/actuation 1 - 2 puff inhalation Q4H PRN AR N 12/16/20 12/30/24 Rx aerosol inhaler (Ventolin HFA) Wheezing or cough #1 inh empagliflozin 10 mg tablet 10 mg PO MOWEFR DIABETES 11/19/21 12/30/24 History (Jardiance) aspirin 81 mg tablet,delayed 81 mg PO DAILY check with primary 08/30/23 12/30/24 History release (Adult Aspirin Regimen) famotidine 20 mg tablet 20 mg PO DAILY #28 tabs 09/01/23 0 12/30/24 Rx acetaminophen 500 mg tablet 1,000 mg PO DAILY 10/13/23 5 History cholecalciferol (vitamin D3) 50 50 mcg PO QDAY 06/19/24 12/30/24 H istory mcg (2,000 unit) capsule gabapentin 400 mg capsule 800 mg PO TID NEUROPATHY 06/19/24 12/30/24 History Have you fallen in the past year?: No Nurse's Note: per patient, no changes in medications PFSH Medical History Wears glasses Anxiety Depression Insulin dependent diabetes mellitus Arthritis High cholesterol DVT (deep venous thrombosis) Back pain DDD (degenerative disc disease), lumbar TIA (transient ischemic attack) Dietary restriction Former smoker BiPAP (biphasic positive airway pressure) dependence Shortness of breath on exertion History of pain when walking History of edema History of stress test Card (more content not included)... Normal [facility] Chloride assayOrdered By: Shankar North on 12-30-2024 Chloride [Moles/Vol] 104 mmol/L 98-108 [facility] Eosinophil percentageOrdered By: Monse North on 12-30-2024 Eosinophils/100 WBC (Bld) 3.3 % 0-5 [facility] Erythrocyte distribution wid th ratioOrdered By: Monse North on 12-30-2024 Erythrocyte distribution width (RBC) [Ratio] 14.0 % 11.6-14.6 [facility] Erythrocyte distribution wid th standard deviationOrdered By: Monse North on 12-30-2024 Erythrocyte distribution width (RBC) [Ratio] 52.5 fl High 35.1-43.9 [facility] Glomerular filtration rate ( GFR) estimation/1.73 sq m using serum, plasma, or whole bOrdered By: Monse North on 12-30-2024 GFR/1.73 sq M.predicted among non-blacks MDRD (S/P/Bld) [Vol rate/Area] 40 mL/min/{1.73_m2} Low >60 [facility] Comment on above: mL/min/1.73m2 CKD-EP I Creatinine Equation (2020) Hematocrit Auto (Bld) [Volum e fraction]Ordered By: Monse North on 12-30-2024 Hematocrit (Bld) [Volume fraction] 40.3 % 40-54 [facility] Hemoglobin measurementOrdere d By: Monse North on 12-30-2024 Hemoglobin (Bld) [Mass/Vol] 13.0 g/dL 13.0-16.5 [facility] Immature granulocytes/100 WB C Auto (Bld)Ordered By: Monse North on 12-30-2024 Immature granulocytes/100 WBC (Bld) 0.200 % 0.0-0.9 [facility] Comment on above: IG% - Immature Granu locytes (promyelocytes, myelocytes and metamyelocytes) > 1% indicates that a LEFT SHIFT is Present. MCV (mean corpuscular volume ) determinationOrdered By: Monse North on 12-30-2024 MCV (RBC) [Entitic vol] 101.5 fL High 80-94 [facility] Mean corpuscular hemoglobin (MCH) determinationOrdered By: Monse North on 12-30-2024 MCH (RBC) [Entitic mass] 32.7 pg High 27.0-32.0 [facility] Mean corpuscular hemoglobin concentration (MCHC) determinationOrdered By: Monse North on 12-30-2024 MCHC (RBC) [Mass/Vol] 32.3 g/dL 32-36 [facility] Mean platelet volume determi nationOrdered By: Monse North on 12-30-2024 Platelet mean volume (Bld) [Entitic vol] 11.4 fL 6.2-12.0 [facility] Monocyte percentageOrdered B y: Monse North on 12-30-2024 Monocytes/100 WBC (Bld) 5.0 % 0-10 [facility] Natriuretic peptide.B prohor linda N-Terminal [Mass/volume] in Serum or PlasmaOrdered By: Monse North on 12-30-2024 Natriuretic peptide.B prohormone N-Terminal [Mass/Vol] 1230 pg/mL High <900 [facility] Comment on above: Heart Failure Unlike ly: < 300 pg/mLHeart Failure Likely< 50 Years: > 450 pg/mL50-75 Years: > 900 pg/mL>75 Years: > 1800 pg/mL Neutrophil percentageOrdered By: Monse North on 12-30-2024 Neutrophils/100 WBC (Bld) 48.7 % 47-70 [facility] Nucleated red blood cell per centageOrdered By: Monse North on 12-30-2024 Nucleated RBC/100 WBC (Bld) [Ratio] 0 % 0-5 [facility] Platelet countOrdered By: Shankar North on 12-30-2024 Platelets (Bld) [#/Vol] 201 10*3/uL 150-450 [facility] Potassium measurement (mass/ volume)Ordered By: Monse North on 12-30-2024 Potassium (Unsp spec) [Mass/Vol] 4.6 mmol/L 3.3-5.1 [facility] Pro- Brain NATRIURETIC PEPTI Abril 12-30-2024 Natriuretic peptide B (Bld) [Mass/Vol] 1230 pg/mL High <=900 [facility] Comment on above: Result Comment: Hear t Failure Unlikely: < 300 pg/mL Heart Failure Likely < 50 Years: > 450 pg/mL 50-75 Years: > 900 pg/mL >75 Years: > 1800 pg/mL Performed By: #### L 500.2500, L100.0100, L503.7505, L501.9520 #### [facility] [address] [place], [address] RBC Auto (Bld) [#/Vol]Ordere d By: Monse North on 12-30-2024 RBC (Bld) [#/Vol] 3.97 10*6/uL Low 4.6-6.2 [facility] Serum creatinine measurement (mass/volume)Ordered By: Monse North on 12-30-2024 Creatinine [Mass/Vol] 1.79 mg/dL High 0.70-1.20 [facility] Serum glucose measurement (m ass/volume)Ordered By: Monse North on 12-30-2024 Glucose [Mass/Vol] 114 mg/dL High 70-99 [facility] Serum or plasma calcium bj urement (mass/volume)Ordered By: Monse North on 12-30-2024 Calcium [Mass/Vol] 9.0 mg/dL 7.6-11.0 [facility] Serum or plasma urea nitroge n measurement (mass/volume)Ordered By: Monse North on 12-30-2024 Urea nitrogen [Mass/Vol] 31 mg/dL High 4-19 [facility] Sodium levelOrdered By: Jennifer North on 12-30-2024 Sodium [Moles/Vol] 140 mmol/L 133-145 [facility] TSH DL <= 0.005 mIU/L QnOrde red By: Monse North on 12-30-2024 TSH Qn 2.110 uIU/mL 0.300-4.200 [facility] Thyroid Stim Hormone (TSH)on 12-30-2024 TSH 2.110 uIU/mL Normal 0.300-4.200 [facility] Comment on above: Performed By: #### L 500.2500, L100.0100, L503.7505, L501.9520 #### [facility] [address] [place], [address] White blood cell (WBC) count Ordered By: Monse North on 12-30-2024 WBC (Bld) [#/Vol] 8.6 10*3/uL 4.4-11.0 [facility] Cardiovascular stress test r eportOrdered By: Delon Hamilton on 12-23-2024 Study report [facility] [address] [place] [address] MR#: [id number] Acct: [id number] Name: SHELBI GARCIA Rep #: [id number] : 1955 69 From: Delon Hamilton MD Primary Care: Dr. Fatoumata Red MD Statu s: REG CLI Referring Dr: Fatoumata Red MD [...] is end systolic thickening and brightening. The gatedCardiolite study demonstrates myocardial thickening and inward wall motion. Thereported LVEF is 67%. Impression: 1. Pharmacologic (Regadenoson) evaluation 2. Peak pharmacologic ECG with no ischemic changes. 3. There were no cardiac dysrhythmias pretest, during pharmacologic infusion, or recovery. 5. Rest and stress SPECT Cardiolite nuclear imaging demonstrate relative uniform tracer uptake and myocardial perfusion appearing within normal limits. 6. The gated Cardiolite study reports an LVEF of 67%. This note was generated with [employer] ([employer]ation software. It may contain incorrectwords, spelling, and punctuation that were not noted in checking the note beforesigning. 12/23/24 1144 Date _ Delon Hamilton MD CC: Dr. 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 Fatoumata Red MD Status: REG I Referring Dr: Fatoumata Red MD Sex: M [...] of 67%. This note was generated with [employer] ([employer]ation software. It may contain incorrect words, spelling, and punctuation that were not noted in checking the note before signing. 12/23/24 1144 Date Delon Hamilton MD CC: Dr. 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 Signed Normal [facility] Absolute lymphocyte countOrd ered By: Fatoumata Red on 11-28-2024 Lymphocytes Auto (Unsp spec) [#/Vol] 3.31 10*3/uL 0.83-4.51 [facility] Absolute neutrophil countOrd ered By: Fatoumata Red on 11-28-2024 Neutrophils (Bld) [#/Vol] 3.5 10*3/uL 2.0-7.7 [facility] Anion gap in Serum or Plasma Ordered By: Fatoumata Red on 11-28-2024 Anion gap [Moles/Vol] 11 mmol/L -15 [facility] Automated lymphocyte count a s percentage of total leukocytesOrdered By: Fatoumata Red on 11-28-2024 Lymphocytes/100 WBC Auto (Unsp spec) 44.1 % High 19-41 [facility] BUN/creatinine ratioOrdered By: Fatoumatamateo Red on 11-28-2024 Urea nitrogen/Creatinine [Mass ratio] 16.4 mg/mg 10-20 [facility] Basophil percentageOrdered B y: Fatoumata Red on 11-28-2024 Basophils/100 WBC (Bld) 0.5 % 0-1 [facility] Bilirubin, totalOrdered By: Fatoumata Red on 11-28-2024 Bilirubin [Mass/Vol] 0.48 mg/dL 0.00-1.30 [facility] CBC W/Diff, Automatedon 11-09 Absolute Lymph 3.31 X10 3/uL Normal 0.83-4.51 [facility] Comment on above: Performed By: #### L 100.0100, L500.4050 #### [facility] [address] [place], [address] Absolute Neut 3.5 X10 3/uL Normal 2.0-7.7 [facility] Comment on above: Performed By: #### L 100.0100, L500.4050 #### [facility] [address] [place], [address] Basophils/100 WBC (Bld) 0.5 % Normal 0-1 [facility] Comment on above: Performed By: #### L 100.0100, L500.4050 #### [facility] [address] [place], [address] Eosinophils/100 WBC (Bld) 4.1 % Normal 0-5 [facility] Comment on above: Performed By: #### L 100.0100, L500.4050 #### [facility] [address] [place], [address] Erythrocyte distribution width (RBC) [Ratio] 14.7 % High 11.6-14.6 [facility] Comment on above: Performed By: #### L 100.0100, L500.4050 #### [facility] [address] [place], [address] Hematocrit (Bld) [Volume fraction] 38.5 % Low 40-54 [facility] Comment on above: Performed By: #### L 100.0100, L500.4050 #### [facility] [address] [place], [address] Hemoglobin (Bld) [Mass/Vol] 12.5 g/dL Low 13.0-16.5 [facility] Comment on above: Performed By: #### L 100.0100, L500.4050 #### [facility] [address] [place], [address] IG% 0.100 Normal 0.0-0.9 [facility] Comment on above: Result Comment: IG% - Immature Granulocytes (promyelocytes, myelocytes and metamyelocytes) > 1% indicates that a LEFT SHIFT is Present. Performed By: #### L 100.0100, L500.4050 #### [facility] [address] [place], [address] Lymphocytes/100 WBC (Bld) 44.1 % High 19-41 [facility] Comment on above: Performed By: #### L 100.0100, L500.4050 #### [facility] [address] [place], [address] MCH (RBC) [Entitic mass] 32.7 pg High 27.0-32.0 [facility] Comment on above: Performed By: #### L 100.0100, L500.4050 #### [facility] [address] [place], [address] MCHC (RBC) [Mass/Vol] 32.5 g/dL Normal 32-36 [facility] Comment on above: Performed By: #### L 100.0100, L500.4050 #### [facility] [address] [place], [address] MCV (RBC) [Entitic vol] 100.8 fL High 80-94 [facility] Comment on above: Performed By: #### L 100.0100, L500.4050 #### [facility] [address] [place], [address] Monocytes/100 WBC (Bld) 4.9 % Normal 0-10 [facility] Comment on above: Performed By: #### L 100.0100, L500.4050 #### [facility] [address] [place], [address] Neutrophils/100 WBC (Bld) 46.3 % Low 47-70 [facility] Comment on above: Performed By: #### L 100.0100, L500.4050 #### [facility] [address] [place], [address] Nucleated RBC (Bld) [#/Vol] 0 10*3/uL Normal 0-5 [facility] Comment on above: Performed By: #### L 100.0100, L500.4050 #### [facility] [address] [place], [address] Platelet mean volume (Bld) [Entitic vol] 10.9 fL Normal 6.2-12.0 [facility] Comment on above: Performed By: #### L 100.0100, L500.4050 #### [facility] [address] [place], [address] Platelets (Bld) [#/Vol] 213 10*3/uL Normal 150-450 [facility] Comment on above: Performed By: #### L 100.0100, L500.4050 #### [facility] [address] [place], [address] RBC (Bld) [#/Vol] 3.82 10*6/uL Low 4.6-6.2 [facility] Comment on above: Performed By: #### L 100.0100, L500.4050 #### [facility] [address] [place], [address] RDW SD 54.4 fl High 35.1-43.9 [facility] Comment on above: Performed By: #### L 100.0100, L500.4050 #### [facility] [address] [place], [address] WBC (Bld) [#/Vol] 7.5 10*3/uL Normal 4.4-11.0 [facility] Comment on above: Performed By: #### L 100.0100, L500.4050 #### [facility] [address] [place], [address] Carbon dioxide, total [Moles /volume] in Central venous bloodOrdered By: Fatoumata Red on 11-28-2024 CO2 [Moles/Vol] 24.8 mmol/L 21.0-32.0 [facility] Chloride assayOrdered By: Dario Red on 11-28-2024 Chloride [Moles/Vol] 103 mmol/L 98-108 [facility] Comprehensive Metabolic Prof ilon 11-28-2024 Albumin [Mass/Vol] 4.2 g/dL Normal 3.4-4.8 [facility] Comment on above: Performed By: #### L 100.0100, L500.4050 #### [facility] [address] [place], [address] Albumin/Globulin [Mass ratio] 1.4 {ratio} Normal 0.9-2.4 [facility] Comment on above: Performed By: #### L 100.0100, L500.4050 #### [facility] [address] [place], [address] ALK PHOS 72 U/L Normal 40-129 [facility] Comment on above: Performed By: #### L 100.0100, L500.4050 #### [facility] [address] [place], [address] ALT [Catalytic activity/Vol] 31 U/L Normal <=46 [facility] Comment on above: Performed By: #### L 100.0100, L500.4050 #### [facility] [address] [place], [address] AST [Catalytic activity/Vol] 18 U/L Normal <=37 [facility] Comment on above: Performed By: #### L 100.0100, L500.4050 #### [facility] [address] [place], [address] Bilirubin [Mass/Vol] 0.48 mg/dL Normal 0.00-1.30 [facility] Comment on above: Performed By: #### L 100.0100, L500.4050 #### [facility] [address] [place], [address] BUN/CRE 16.4 RATIO Normal 10-20 [facility] Comment on above: Performed By: #### L 100.0100, L500.4050 #### [facility] [address] [place], [address] Calcium [Mass/Vol] 8.7 mg/dL Normal 7.6-11.0 [facility] Comment on above: Performed By: #### L 100.0100, [id number] #### [facility] [address] [place], [address] Chloride [Moles/Vol] 103 mmol/L Normal 98-108 [facility] Comment on above: Performed By: #### L 100.0100, [id number] #### [facility] [address] [place], [address] CO2 [Moles/Vol] 24.8 mmol/L Normal 21.0-32.0 [facility] Comment on above: Performed By: #### L 100.0100, [id number] #### [facility] [address] [place], [address] Creatinine [Mass/Vol] 1.60 mg/dL High 0.70-1.20 [facility] Comment on above: Performed By: #### L 100.0100, [id number] #### [facility] [address] [place], [address] GAP 11 Normal 5-15 [facility] Comment on above: Performed By: #### L 100.0100, [id number] #### [facility] [address] [place], [address] GFR/1.73 sq M.predicted among non-blacks MDRD (S/P/Bld) [Vol rate/Area] 46 mL/min/{1.73_m2} Low >60 [facility] Comment on above: Result Comment: mL/m in/1.73m2 CKD-EPI Creatinine Equation (2020) Performed By: #### L 100.0100, L500.4050 #### [facility] [address] [place], [address] Globulin (S) [Mass/Vol] 2.9 g/dL Normal 2.2-4.2 [facility] Comment on above: Performed By: #### L 100.0100, [id number] #### [facility] [address] [place], [address] Glucose [Mass/Vol] 117 mg/dL High 70-99 [facility] Comment on above: Performed By: #### L 100.0100, [id number] #### [facility] [address] [place], [address] Potassium [Moles/Vol] 4.7 mmol/L Normal 3.3-5.1 [facility] Comment on above: Performed By: #### L 100.0100, [id number] #### [facility] [address] [place], [address] Sodium [Moles/Vol] 139 mmol/L Normal 133-145 [facility] Comment on above: Performed By: #### L 100.0100, L500.4050 #### [facility] [address] [place], [address] T PROT 7.0 g/dL Normal 5.9-8.4 [facility] Comment on above: Performed By: #### L 100.0100, [id number] #### [facility] [address] [place], [address] Urea nitrogen [Mass/Vol] 26 mg/dL High 4-19 [facility] Comment on above: Performed By: #### L 100.0100, L500.4050 #### [facility] [address] [place], [address] Eosinophil percentageOrdered By: Fatoumata Red on 11-28-2024 Eosinophils/100 WBC (Bld) 4.1 % 0-5 [facility] Erythrocyte distribution wid th ratioOrdered By: Fatoumata Red on 11-28-2024 Erythrocyte distribution width (RBC) [Ratio] 14.7 % High 11.6-14.6 [facility] Erythrocyte distribution wid th standard deviationOrdered By: Fatoumata Red on 11-28-2024 Erythrocyte distribution width (RBC) [Ratio] 54.4 fl High 35.1-43.9 [facility] Glomerular filtration rate ( GFR) estimation/1.73 sq m using serum, plasma, or whole bOrdered By: Fatoumata Red on 11-28-2024 GFR/1.73 sq M.predicted among non-blacks MDRD (S/P/Bld) [Vol rate/Area] 46 mL/min/{1.73_m2} Low >60 [facility] Comment on above: mL/min/1.73m2 CKD-EP I Creatinine Equation (2020) Hematocrit Auto (Bld) [Volum e fraction]Ordered By: Fatoumata Red on 11-28-2024 Hematocrit (Bld) [Volume fraction] 38.5 % Low 40-54 [facility] Hemoglobin measurementOrdere d By: Fatoumata Red on 11-28-2024 Hemoglobin (Bld) [Mass/Vol] 12.5 g/dL Low 13.0-16.5 [facility] Immature granulocytes/100 WB C Auto (Bld)Ordered By: Fatoumata Red on 11-28-2024 Immature granulocytes/100 WBC (Bld) 0.100 % 0.0-0.9 [facility] Comment on above: IG% - Immature Granu locytes (promyelocytes, myelocytes and metamyelocytes) > 1% indicates that a LEFT SHIFT is Present. Laboratory - Chemistry and C hemistry - challengeOrdered By: Fatoumata Red on 11-28-2024 AST [Catalytic activity/Vol] 18 U/L <38 [facility] MCV (mean corpuscular volume ) determinationOrdered By: Fatoumata Red on 11-28-2024 MCV (RBC) [Entitic vol] 100.8 fL High 80-94 [facility] Mean corpuscular hemoglobin (MCH) determinationOrdered By: Fatoumata Red on 11-28-2024 MCH (RBC) [Entitic mass] 32.7 pg High 27.0-32.0 [facility] Mean corpuscular hemoglobin concentration (MCHC) determinationOrdered By: Fatoumata Red on 11-28-2024 MCHC (RBC) [Mass/Vol] 32.5 g/dL 32-36 [facility] Mean platelet volume determi nationOrdered By: Fatoumata Red on 11-28-2024 Platelet mean volume (Bld) [Entitic vol] 10.9 fL 6.2-12.0 [facility] Monocyte percentageOrdered B y: Fatoumata Red on 11-28-2024 Monocytes/100 WBC (Bld) 4.9 % 0-10 [facility] Neutrophil percentageOrdered By: Fatoumata Red on 11-28-2024 Neutrophils/100 WBC (Bld) 46.3 % Low 47-70 [facility] Nucleated red blood cell per centageOrdered By: Fatoumata Red on 11-28-2024 Nucleated RBC/100 WBC (Bld) [Ratio] 0 % 0-5 [facility] Platelet countOrdered By: Dario Red on 11-28-2024 Platelets (Bld) [#/Vol] 213 10*3/uL 150-450 [facility] Potassium measurement (mass/ volume)Ordered By: Fatoumata Red on 11-28-2024 Potassium (Unsp spec) [Mass/Vol] 4.7 mmol/L 3.3-5.1 [facility] RBC Auto (Bld) [#/Vol]Ordere d By: Fatoumata Red on 11-28-2024 RBC (Bld) [#/Vol] 3.82 10*6/uL Low 4.6-6.2 [facility] Serum creatinine measurement (mass/volume)Ordered By: Fatoumata Red on 11-28-2024 Creatinine [Mass/Vol] 1.60 mg/dL High 0.70-1.20 [facility] Serum globulin measurementOr dered By: Fatoumata Red on 11-28-2024 Globulin (S) [Mass/Vol] 2.9 g/dL 2.2-4.2 [facility] Serum glucose measurement (m ass/volume)Ordered By: Fatoumata Red on 11-28-2024 Glucose [Mass/Vol] 117 mg/dL High 70-99 [facility] Serum or plasma alanine sanches otransferase (ALT) measurementOrdered By: Fatoumata Red on 11-28-2024 ALT [Catalytic activity/Vol] 31 U/L <47 [facility] Serum or plasma albumin bj urement (mass/volume)Ordered By: Fatoumata Red on 11-28-2024 Albumin [Mass/Vol] 4.2 g/dL 3.4-4.8 [facility] Serum or plasma albumin/glob ulin mass ratioOrdered By: Fatoumata Red on 11-28-2024 Albumin/Globulin [Mass ratio] 1.4 {ratio} 0.9-2.4 [facility] Serum or plasma alkaline cynthia sphatase measurementOrdered By: Fatoumata Red on 11-28-2024 ALP [Catalytic activity/Vol] 72 U/L 40-129 [facility] Serum or plasma calcium bj urement (mass/volume)Ordered By: Fatoumata Red on 11-28-2024 Calcium [Mass/Vol] 8.7 mg/dL 7.6-11.0 [facility] Serum or plasma urea nitroge n measurement (mass/volume)Ordered By: Fatoumata Red on 11-28-2024 Urea nitrogen [Mass/Vol] 26 mg/dL High 4-19 [facility] Sodium levelOrdered By: Tami Red on 11-28-2024 Sodium [Moles/Vol] 139 mmol/L 133-145 [facility] Total proteinOrdered By: Tal Red on 11-28-2024 Protein [Mass/Vol] 7.0 g/dL 5.9-8.4 [facility] White blood cell (WBC) count Ordered By: Fatoumata Red on 11-28-2024 WBC (Bld) [#/Vol] 7.5 10*3/uL 4.4-11.0 [facility] Cardiology Visit Reporton Cardiology Visit Report [facility] [address] [place] [address] OFFICE VISIT Date of Service: 06/19/24 MR#: [id number] Acct: [id number] Name: SHELBI GARCIA Rep #: [id number] : 1955 Provider: Dr. Warren perez MD Age/Sex: 69/M Location: [facility] Status: Signed HPI HPI History of Present [...] room air Intake Visit Reasons: 7 M Shipper Required: No Accompanied by: Self Is patient [...] 1 - 2 puff inhalation Q4H PRN AR N 12/16/20 06/19/24 Rx aerosol inhaler (Ventolin [...] ( 11 (more content not included)... Normal [facility] Absolute lymphocyte countOrd ered By: Monse North on 03-06-2023 Lymphocytes Auto (Unsp spec) [#/Vol] 4.78 10*3/uL 0.83-4.51 [facility] Basophil percentageOrdered B y: Monse North on 03-06-2023 Basophils/100 WBC (Bld) 0.6 % 0-1 [facility] Chloride [Moles/Vol] 106 mmol/L 98-107 [facility] Eosinophils/100 WBC (Bld) 2.9 % 0-5 [facility] Glucose [Mass/Vol] 155 mg/dL 74-106 [facility] Comment on above: Fasting Glucose resu lt greater than or equal to 126 mg/dL suggests DIABETES MELLITUS per A.D.A. criteria. Neutrophils (Bld) [#/Vol] 3.9 10*3/uL 2.0-7.7 [facility] Neutrophils/100 WBC (Bld) 41.4 % 47-70 [facility] Potassium [Moles/Vol] 4.6 mmol/L 3.5-5.1 [facility] Comment on above: Moderate Hemolysis, Result may be falsely increased. Sodium [Moles/Vol] 138 mmol/L 136-145 [facility] WBC (Bld) [#/Vol] 9.5 10*3/uL 4.4-11.0 [facility] Blood erythrocytes count (nu mber/volume)Ordered By: Monse North on 03-06-2023 RBC (Bld) [#/Vol] 4.98 10*6/uL 4.6-6.2 [facility] Blood hemoglobin measurement (mass/volume)Ordered By: Monse North on 03-06-2023 Hemoglobin (Bld) [Mass/Vol] 15.1 g/dL 13.0-16.5 [facility] Blood lymphocytes/100 leukoc ytesOrdered By: Monse North on 03-06-2023 Lymphocytes/100 WBC (Bld) 50.3 % 19-41 [facility] Blood monocytes/100 leukocyt esOrdered By: Monse North on 03-06-2023 Monocytes/100 WBC (Bld) 4.7 % 0-10 [facility] Blood platelet mean volumeOr dered By: Monse North on 03-06-2023 Platelet mean volume (Bld) [Entitic vol] 11.2 fL 6.2-12.0 [facility] Determination of erythrocyte mean corpuscular volume (MCV)Ordered By: Monse North on 03-06-2023 MCV (RBC) [Entitic vol] 96.4 fL 80-94 [facility] Hematocrit Auto (Bld) [Volum e fraction]Ordered By: Monse North on 03-06-2023 Hematocrit (Bld) [Volume fraction] 48.0 % 40-54 [facility] - Chemistry and C hemistry - challengeOrdered By: Monse North on 03-06-2023 CO2 [Moles/Vol] 28.0 mmol/L 21.0-32.0 [facility] Urea nitrogen/Creatinine [Mass ratio] 19.4 mg/mg 10-20 [facility] - Hematology and Cell countsOrdered By: Monse North on 03-06-2023 Erythrocyte distribution width (RBC) [Entitic vol] 49.2 fL 35.1-43.9 [facility] Erythrocyte distribution width (RBC) [Ratio] 13.8 % 11.6-14.6 [facility] Immature granulocytes/100 WBC (Bld) 0.100 % 0.0-0.9 [facility] Comment on above: IG% - Immature Granu locytes (promyelocytes, myelocytes and metamyelocytes) > 1% indicates that a LEFT SHIFT is Present. MCH (RBC) [Entitic mass] 30.3 pg 27.0-32.0 [facility] Nucleated RBC/100 WBC (Bld) [Ratio] 0 % 0-5 [facility] MCHC Auto (RBC) [Mass/Vol]Or dered By: Monse North on 03-06-2023 MCHC (RBC) [Mass/Vol] 31.5 g/dL 32-36 [facility] No Panel InformationOrdered By: Monse North on 03-06-2023 Estimated GFR (MDRD) Amer 57 mL/min >60 [facility] Comment on above: GFR Calc Estimated GFR (MDRD) Non-Af Amer 47 mL/min >60 [facility] Comment on above: Non- GFR Calc Platelets bldOrdered By: Mikie North on 03-06-2023 Platelets (Bld) [#/Vol] 183 10*3/uL 150-450 [facility] Serum or plasma calcium bj urement (mass/volume)Ordered By: Monse North on 03-06-2023 Calcium [Mass/Vol] 8.4 mg/dL 8.5-10.1 [facility] Serum or plasma creatinine m easurement (mass/volume)Ordered By: Monse North on 03-06-2023 Creatinine [Mass/Vol] 1.55 mg/dL 0.70-1.30 [facility] Comment on above: The validity of the calculated GFR & GFRAA in patients over 70 years has not been determined. Clinical correlation is essential. Serum or plasma urea nitroge n measurement (mass/volume)Ordered By: Monse North on 03-06-2023 Urea nitrogen [Mass/Vol] 30 mg/dL 7-18 [facility] Thin prep Papanicolaou smear with manual screeningOrdered By: Monse North on 03-06-2023 Thin prep Papanicolaou smear with manual screening 4 5-15 [facility] Absolute lymphocyte countOrd ered By: Warren Olivarez on 02-01-2023 Lymphocytes Auto (Unsp spec) [#/Vol] 4.13 10*3/uL 0.83-4.51 [facility] Basophil percentageOrdered B y: Warren Olivarez on 02-01-2023 Basophils/100 WBC (Bld) 0.6 % 0-1 [facility] Eosinophils/100 WBC (Bld) 2.6 % 0-5 [facility] Neutrophils (Bld) [#/Vol] 4.2 10*3/uL 2.0-7.7 [facility] Neutrophils/100 WBC (Bld) 45.6 % 47-70 [facility] WBC (Bld) [#/Vol] 9.3 10*3/uL 4.4-11.0 [facility] Blood erythrocytes count (nu mber/volume)Ordered By: Warren Olivarez on 02-01-2023 RBC (Bld) [#/Vol] 4.83 10*6/uL 4.6-6.2 [facility] Blood hemoglobin measurement (mass/volume)Ordered By: Warren Olivarez on 02-01-2023 Hemoglobin (Bld) [Mass/Vol] 14.6 g/dL 13.0-16.5 [facility] Blood lymphocytes/100 leukoc ytesOrdered By: Warren Olivarez on 02-01-2023 Lymphocytes/100 WBC (Bld) 44.6 % 19-41 [facility] Blood monocytes/100 leukocyt esOrdered By: Warren Olivarez on 02-01-2023 Monocytes/100 WBC (Bld) 6.3 % 0-10 [facility] Blood platelet mean volumeOr dered By: Warren Olivarez on 02-01-2023 Platelet mean volume (Bld) [Entitic vol] 11.2 fL 6.2-12.0 [facility] Determination of erythrocyte mean corpuscular volume (MCV)Ordered By: Warren Olivarez on 02-01-2023 MCV (RBC) [Entitic vol] 97.1 fL 80-94 [facility] Erythrocyte sedimentation ra teOrdered By: Warren Olivarez on 02-01-2023 ESR (Bld) [Velocity] 63 mm/h 0-20 [facility] Hematocrit Auto (Bld) [Volum e fraction]Ordered By: Warren Olivarez on 02-01-2023 Hematocrit (Bld) [Volume fraction] 46.9 % 40-54 [facility] - Hematology and Cell countsOrdered By: Warren Olivarez on 02-01-2023 Erythrocyte distribution width (RBC) [Entitic vol] 51.3 fL 35.1-43.9 [facility] Erythrocyte distribution width (RBC) [Ratio] 14.2 % 11.6-14.6 [facility] Immature granulocytes/100 WBC (Bld) 0.300 % 0.0-0.9 [facility] Comment on above: IG% - Immature Granu locytes (promyelocytes, myelocytes and metamyelocytes) > 1% indicates that a LEFT SHIFT is Present. MCH (RBC) [Entitic mass] 30.2 pg 27.0-32.0 [facility] Nucleated RBC/100 WBC (Bld) [Ratio] 0 % 0-5 [facility] MCHC Auto (RBC) [Mass/Vol]Or dered By: Warren Olivarez on 02-01-2023 MCHC (RBC) [Mass/Vol] 31.1 g/dL 32-36 [facility] Platelets bldOrdered By: Hubert Olivarez on 02-01-2023 Platelets (Bld) [#/Vol] 194 10*3/uL 150-450 [facility] Serum or plasma C reactive p rotein measurement (mass/volume)Ordered By: Warren Olivarez on 02-01-2023 CRP [Mass/Vol] 8.48 mg/L 0.0-3.0 [facility] Comment on above: C-Reactive Protein ( CRP) provides useful information for thediagnosis, therapy and monitoring of inflammatory processesand associated diseases. For the evaluation of Relative Riskfor Cardiovascular Disease, a High Sensitivity CRP (HSCRP)should be ordered. Absolute lymphocyte countOrd ered By: Fatoumata Red on 01-13-2023 Lymphocytes Auto (Unsp spec) [#/Vol] 2.43 10*3/uL 0.83-4.51 [facility] Basophil percentageOrdered B y: Fatoumata Red on 01-13-2023 Basophils/100 WBC (Bld) 0.8 % 0-1 [facility] Bilirubin [Mass/Vol] 0.40 mg/dL 0.20-1.00 [facility] Comment on above: For patients on eltr ombopag therapy, use of Dimension [place] TBIL is not recommended. Chloride [Moles/Vol] 107 mmol/L 98-107 [facility] Cholesterol [Mass/Vol] 104 mg/dL <200 [facility] Comment on above: <200 mg/dL Desirable 200-240 mg/dL Borderline >240 mg/dL High Risk Eosinophils/100 WBC (Bld) 2.4 % 0-5 [facility] Glucose [Mass/Vol] 189 mg/dL 74-106 [facility] Comment on above: Fasting Glucose resu lt greater than or equal to 126 mg/dL suggests DIABETES MELLITUS per A.D.A. criteria. Neutrophils (Bld) [#/Vol] 4.6 10*3/uL 2.0-7.7 [facility] Neutrophils/100 WBC (Bld) 58.7 % 47-70 [facility] Potassium [Moles/Vol] 3.9 mmol/L 3.5-5.1 [facility] Protein [Mass/Vol] 7.5 g/dL 6.4-8.2 [facility] Sodium [Moles/Vol] 138 mmol/L 136-145 [facility] Triglyceride [Mass/Vol] 100 mg/dL <199 [facility] Comment on above: The drugs N-Acetylcy steine and Metamizole may falsely depress this assay.Serum Triglycerides Reference Interval Normal <150 mg/dL Borderline high 150 - 199 mg/dL High 200 - 499 mg/dL Very High > or = 500 mg/dL WBC (Bld) [#/Vol] 7.8 10*3/uL 4.4-11.0 [facility] Blood erythrocytes count (nu mber/volume)Ordered By: Fatoumata Red on 01-13-2023 RBC (Bld) [#/Vol] 4.75 10*6/uL 4.6-6.2 [facility] Blood hemoglobin measurement (mass/volume)Ordered By: Fatoumata Red on 01-13-2023 Hemoglobin (Bld) [Mass/Vol] 14.7 g/dL 13.0-16.5 [facility] Blood lymphocytes/100 leukoc ytesOrdered By: Fatoumata Red on 01-13-2023 Lymphocytes/100 WBC (Bld) 31.2 % 19-41 [facility] Blood monocytes/100 leukocyt esOrdered By: Fatoumata Red on 01-13-2023 Monocytes/100 WBC (Bld) 6.6 % 0-10 [facility] Blood platelet mean volumeOr dered By: Fatoumata Red on 01-13-2023 Platelet mean volume (Bld) [Entitic vol] 10.9 fL 6.2-12.0 [facility] Determination of erythrocyte mean corpuscular volume (MCV)Ordered By: Fatoumata Red on 01-13-2023 MCV (RBC) [Entitic vol] 97.3 fL 80-94 [facility] Hematocrit Auto (Bld) [Volum e fraction]Ordered By: Fatoumata Red on 01-13-2023 Hematocrit (Bld) [Volume fraction] 46.2 % 40-54 [facility] - Chemistry and C hemistry - challengeOrdered By: Fatoumata Red on 01-13-2023 ALP [Catalytic activity/Vol] 98 U/L 45-117 [facility] ALT [Catalytic activity/Vol] 19 U/L 16-61 [facility] CO2 [Moles/Vol] 25.0 mmol/L 21.0-32.0 [facility] Globulin (S) [Mass/Vol] 4.0 g/dL 2.2-4.2 [facility] Urea nitrogen/Creatinine [Mass ratio] 20.4 mg/mg 10-20 [facility] - Hematology and Cell countsOrdered By: Fatoumata Red on 01-13-2023 Erythrocyte distribution width (RBC) [Entitic vol] 50.3 fL 35.1-43.9 [facility] Erythrocyte distribution width (RBC) [Ratio] 13.8 % 11.6-14.6 [facility] Immature granulocytes/100 WBC (Bld) 0.300 % 0.0-0.9 [facility] Comment on above: IG% - Immature Granu locytes (promyelocytes, myelocytes and metamyelocytes) > 1% indicates that a LEFT SHIFT is Present. MCH (RBC) [Entitic mass] 30.9 pg 27.0-32.0 [facility] Nucleated RBC/100 WBC (Bld) [Ratio] 0 % 0-5 [facility] MCHC Auto (RBC) [Mass/Vol]Or dered By: Fatoumata Red on 01-13-2023 MCHC (RBC) [Mass/Vol] 31.8 g/dL 32-36 [facility] No Panel InformationOrdered By: Fatoumata Red on 01-13-2023 Estimated GFR (MDRD) Amer 55 mL/min >60 [facility] Comment on above: GFR Calc Estimated GFR (MDRD) Non-Af Amer 45 mL/min >60 [facility] Comment on above: Non- GFR Calc Platelets bldOrdered By: Tal Red on 01-13-2023 Platelets (Bld) [#/Vol] 216 10*3/uL 150-450 [facility] Serum or plasma albumin bj urement (mass/volume)Ordered By: Fatoumata Red on 01-13-2023 Albumin [Mass/Vol] 3.5 g/dL 3.2-5.0 [facility] Serum or plasma albumin/glob ulin mass ratioOrdered By: Fatoumata Red on 01-13-2023 Albumin/Globulin [Mass ratio] 0.9 {ratio} 0.9-2.4 [facility] Serum or plasma calcium bj urement (mass/volume)Ordered By: Fatoumata Red on 01-13-2023 Calcium [Mass/Vol] 8.7 mg/dL 8.5-10.1 [facility] Serum or plasma cholesterol in HDL measurement (mass/volume)Ordered By: Fatoumata Red on 01-13-2023 Cholesterol in HDL [Mass/Vol] 36 mg/dL >40 [facility] Comment on above: The drugs N-Acetylcy steine and Metamizole may falsely depress this assay. Reference Range HDL <40 mg/dL Low HDL Cholesterol HDL >or= 60 mg/dL High HDL Cholesterol Serum or plasma cholesterol in VLDL measurement (mass/volume)Ordered By: Fatoumata Red on 01-13-2023 Cholesterol in VLDL [Mass/Vol] 20 mg/dL 5-40 [facility] Serum or plasma creatinine m easurement (mass/volume)Ordered By: Fatoumata Red on 01-13-2023 Creatinine [Mass/Vol] 1.62 mg/dL 0.70-1.30 [facility] Comment on above: The validity of the calculated GFR & GFRAA in patients over 70 years has not been determined. Clinical correlation is essential. Serum or plasma low density lipoprotein (LDL) cholesterol measurement (mass/volume)Ordered By: Fatoumata Red on 01-13-2023 Cholesterol in LDL [Mass/Vol] 48 mg/dL 0-130 [facility] Serum or plasma urea nitroge n measurement (mass/volume)Ordered By: Fatoumata Red on 01-13-2023 Urea nitrogen [Mass/Vol] 33 mg/dL 7-18 [facility] Thin prep Papanicolaou smear with manual screeningOrdered By: Fatoumata Red on 01-13-2023 Thin prep Papanicolaou smear with manual screening 10 U/L 15-37 [facility] Thin prep Papanicolaou smear with manual screening 6 5-15 [facility] Urine creatinine measurement (mass/volume)Ordered By: Fatoumata Red on 01-13-2023 Creatinine (U) [Mass/Vol] 42.40 mg/dL NO RANGE EST. [facility] Urine protein measurement (m ass/volume)Ordered By: Fatoumata Red on 01-13-2023 Protein (U) [Mass/Vol] 9.8 mg/dL 0.0-11.8 [facility] Urine protein/creatinine mas s ratioOrdered By: Fatoumata Red on 01-13-2023 Protein/Creatinine (U) [Mass ratio] 231 mg/g CRE 0-200 [facility] Whole blood hemoglobin A1c/t otal hemoglobin ratio (mass fraction)Ordered By: Fatoumata Red on 01-13-2023 HbA1c (Bld) [Mass fraction] 6.9 % 3.8-5.6 [facility] Comment on above: Normal < 5.7 % Predi abetic 5.7 - 6.4 % Diabetic >or= 6.5 % Please note range changes. Basophil percentageon 2021 Basophil percentage 3.5 mg/dL 2.5-4.9 [facility] Work Phone: Chloride [Moles/Vol] 104 mmol/L 98-107 [facility] Work Phone: Glucose [Mass/Vol] 217 mg/dL 74-106 [facility] Work Phone: Comment on above: Glucose result great er than or equal to 200 mg/dLsuggests DIABETES MELLITUS per A.D.A. criteria. Potassium [Moles/Vol] 4.6 mmol/L 3.5-5.1 [facility] Work Phone: Sodium [Moles/Vol] 137 mmol/L 136-145 [facility] Work Phone: Laboratory - Chemistry and C hemistry - challengeon 09-10-2021 CO2 [Moles/Vol] 27.0 mmol/L 21.0-32.0 [facility] Work Phone: Urea nitrogen/Creatinine [Mass ratio] 13.1 mg/mg 10-20 [facility] Work Phone: No Panel Informationon 09-10 Estimated GFR (MDRD) Amer 53 mL/min >60 [facility] Work Phone: Comment on above: GFR Calc Estimated GFR (MDRD) Non-Af Amer 43 mL/min >60 [facility] Work Phone: Comment on above: Non- GFR Calc Serum or plasma albumin bj urement (mass/volume)on 09-10-2021 Albumin [Mass/Vol] 4.0 g/dL 3.2-5.0 [facility] Work Phone: Serum or plasma calcium bj urement (mass/volume)on 09-10-2021 Calcium [Mass/Vol] 8.6 mg/dL 8.5-10.1 [facility] Work Phone: Serum or plasma creatinine m easurement (mass/volume)on 09-10-2021 Creatinine [Mass/Vol] 1.68 mg/dL 0.70-1.30 [facility] Work Phone: Comment on above: The validity of the calculated GFR & GFRAA in patients over 70 years has not been determined. Clinical correlation is essential. Serum or plasma urea nitroge n measurement (mass/volume)on 09-10-2021 Urea nitrogen [Mass/Vol] 22 mg/dL 7-18 [facility] Work Phone: Urine creatinine measurement (mass/volume)on 09-02-2021 Creatinine (U) [Mass/Vol] 78.50 mg/dL NO RANGE EST. [facility] Work Phone: Urine protein measurement (m ass/volume)on 09-02-2021 Protein (U) [Mass/Vol] 15.7 mg/dL 0.0-11.8 [facility] Work Phone: Urine protein/creatinine mas s ratioon 09-02-2021 Protein/Creatinine (U) [Mass ratio] 200 mg/g CRE 0-200 [facility] Work Phone: CNPNon 09-01-2021 CNPN Telephone (HEMInduction Manager) SHELBI GARCIA ([id number]) 1955 M Date Time Provider Department 09/01/21 JP DENIS During your visit today, we recorded the following information about you: Sue Hannon 09/01/2021 10:[address] Soler's office at [facility] called requesting the last office note [...] - Fully Assessed Reason for Visit: Information [6608] Prescriptions as of 09/01/2021 - apixaban (ELIQUIS) [...] 1 tablet by mouth once daily. - W-Wyqlthz-K0 Hszx-Pmtbnd-V06 3-35-2 mg tab or Capsule Take 1 [...] Encounter Status:Closed by NANCY QUEZADA on 09/01/[address] 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 DO Ronel Fernandes LPN 07/19/2021 [...] 1 tablet by mouth once daily. - Z-Dpycpkd-H4 Havu-Fppfvq-L91 3-35-2 mg tab or Capsule Take 1 [...] by RONEL ROSEN LPN on 07/19/21 Normal [facility] Basophil percentageon 2021 Bilirubin [Mass/Vol] 0.50 mg/dL 0.20-1.00 [facility] Work Phone: Comment on above: For patients on eltr ombopag therapy, use of Dimension [place] TBIL is not recommended. Cholesterol [Mass/Vol] 63 mg/dL <200 [facility] Work Phone: Comment on above: <200 mg/dL Desirable 200-240 mg/dL Borderline >240 mg/dL High Risk Protein [Mass/Vol] 7.5 g/dL 6.4-8.2 [facility] Work Phone: Triglyceride [Mass/Vol] 93 mg/dL [facility] Work Phone: Comment on above: The drugs N-Acetylcy steine and Metamizole may falsely depress this assay.Serum Triglycerides Reference Interval Normal <150 mg/dL Borderline high 150 - 199 mg/dL High 200 - 499 mg/dL Very High > or = 500 mg/dL CBC W Ordered Manual Differe ntial panel (Bld)on 07-15-2021 Basophils (Bld) [#/Vol] 10*3/uL Normal <0.11 [facility] Comment on above: Order Comment: Speci men Type: BLOOD SPECIMENOrdering Facility: [facility] Address: [address] [place] [address] Performed By: #### 5 7782-5 ####[facility] [id number] [place] [id number] [place] [facility]AP[facility] LABCLIA [id number] [place] [address] [place]#### STFREV ####[facility] LABCLIA [id number] [place] [address] [place] Basophils/100 WBC (Bld) 0.0 % Normal C [facility] Comment on above: Order Comment: Speci men Type: BLOOD SPECIMENOrdering Facility: [facility] Address: [address] [place] [address] Performed By: #### 5 7782-5 ####[facility]ITALWNCLIA [id number] [place] [address] [place] [facility] LABCLIA [id number] [place] [address] [place]#### STFREV ####[facility] LABCLIA [id number] [place] [address] [place] Differential cell count method Nom (Bld) Auto Normal [facility] Comment on above: Order Comment: Speci men Type: BLOOD SPECIMENOrdering Facility: [facility] Address: [address] [place], [place] [address] Performed By: #### 5 7782-5 ####[facility]CL[facility] [id number] [place] [address] [place] [facility] LABCLIA [id number] [place] [address] [place]#### STFREV ####[facility] LABCLIA [id number] [place] [address] [place] Eosinophils (Bld) [#/Vol] 0.24 10*3/uL Normal <0.46 [facility] Comment on above: Order Comment: Speci men Type: BLOOD SPECIMENOrdering Facility: [facility] Address: [address] [place] [address] Performed By: #### 5 7782-5 ####[facility]OS[facility]ITALWNCLIA [id number] [place] [address] [place] [facility] LABCLIA [id number] [place] [address] [place]#### STFREV ####[facility] LABCLIA [id number] [place] [address] [place] Eosinophils/100 WBC (Bld) 10.3 % Normal [facility] Comment on above: Order Comment: Speci men Type: BLOOD SPECIMENOrdering Facility: [facility] Address: [address] [place] [address] Performed By: #### 5 7782-5 ####[facility]OSPITALL[facility] [id number] [address] OF [facility] LABCLIA [id number] [address] [place]#### STFREV ####[facility] LABCLIA [id number] [place] [address] [place] Erythrocyte distribution width (RBC) [Ratio] 13.4 % Normal 11.5-15.0 [facility] Comment on above: Order Comment: Speci men Type: BLOOD SPECIMENOrdering Facility: [facility] Address: [address] [place] [address] Performed By: #### 5 7782-5 ####[facility]ITALL[facility] [id number] [address] OF [facility] LABCLIA [id number] [place] [address] [place]#### STFREV ####[facility] LABCLIA [id number] [place] [address] [place] Hematocrit (Bld) [Volume fraction] 36.1 % Low 39.0-51.0 [facility] Comment on above: Order Comment: Speci men Type: BLOOD SPECIMENOrdering Facility: [facility] Address: [address] [place] [address] Performed By: #### 5 7782-5 ####[facility] MILLTOWNCLIA [id number] [address] LABCLIA [id number] [place] [address] [place]#### STFREV ####[facility] LABCLIA [id number] [place] [address] [place] Hemoglobin (Bld) [Mass/Vol] 12.2 g/dL Low 13.0-17.0 [facility] Comment on above: Order Comment: Speci men Type: BLOOD SPECIMENOrdering Facility: [facility] Address: [address] [place] [address] Performed By: #### 5 7782-5 ####[facility]STNCLIA [id number] [address] LABCLIA [id number] [address] [place]#### STFREV ####[facility] LABCLIA [id number] [place] [address] [place] HYPOGRANULATED PMNS Occasional Normal [facility] Comment on above: Order Comment: Speci men Type: BLOOD SPECIMENOrdering Facility: [facility] Address: [address] [place] [address] Performed By: #### 5 7782-5 ####[facility]OS[facility]ITALWNCLIA [id number] [address] LABCLIA [id number] [place] [address] [place]#### STFREV ####[facility] LABCLIA [id number] [place] [address] [place] IMMATURE GRAN % 0.4 % Normal [facility] Comment on above: Order Comment: Speci men Type: BLOOD SPECIMENOrdering Facility: [facility] Address: [address] [place] [address] Performed By: #### 5 7782-5 ####[facility] MILLTOWNCLIA [id number] [place] [address] [place] [facility] LABCLIA [id number] [place] [address] [place]#### STFREV ####[facility] LABCLIA [id number] [place] [address] [place] IMMATURE GRAN ABS <0.03 Normal <0.10 [facility] Comment on above: Order Comment: Speci men Type: BLOOD SPECIMENOrdering Facility: [facility] Address: [address] [place], [place] [address] Performed By: #### 5 7782-5 ####[facility]STNCL[facility] [id number] [address] OF [facility] LABCLIA [id number] [place] [address] [place]#### STFREV ####[facility] LABCLIA [id number] [place] [address] [place] Lymphocytes (Bld) [#/Vol] 1.65 10*3/uL Normal 1.00-4.00 [facility] Comment on above: Order Comment: Speci men Type: BLOOD SPECIMENOrdering Facility: [facility] Address: [address] [place] [address] Performed By: #### 5 7782-5 ####[facility] HOSPITALWNCLIA [id number] [address] STATES OF [facility] LABCLIA [id number] [place] [address] [place]#### STFREV ####[facility] LABCLIA [id number] [place] [address] [place] Lymphocytes/100 WBC (Bld) 70.5 % Normal [facility] Comment on above: Order Comment: Speci men Type: BLOOD SPECIMENOrdering Facility: [facility] Address: [address] [place] [address] Performed By: #### 5 7782-5 ####[facility]ITALA [id number] [address] LABCLIA [id number] [place] [address] [place]#### STFREV ####[facility] LABCLIA [id number] [place] [address] [place] MCH (RBC) [Entitic mass] 32.7 pg Normal 26.0-34.0 [facility] Comment on above: Order Comment: Speci men Type: BLOOD SPECIMENOrdering Facility: [facility] Address: [address] [place] [address] Performed By: #### 5 7782-5 ####[facility]ITALA [id number] [address] OF [facility] LABCLIA [id number] [place] [address] [place]#### STFREV ####[facility] LABCLIA [id number] [place] [address] [place] MCHC (RBC) [Mass/Vol] 33.8 g/dL Normal 30.5-36.0 [facility] Comment on above: Order Comment: Speci men Type: BLOOD SPECIMENOrdering Facility: [facility] Address: [address] [place], [place] [address] Performed By: #### 5 7782-5 ####[facility]ITALWNCLIA [id number] [place] [address] [place] [facility] LABCLIA [id number] [place] [address] [place]#### STFREV ####[facility] LABCLIA [id number] [place] [address] [place] MCV (RBC) [Entitic vol] 96.8 fL Normal 80.0-100.0 [facility] Comment on above: Order Comment: Speci men Type: BLOOD SPECIMENOrdering Facility: [facility] Address: [address] [place], [place] [address] Performed By: #### 5 7782-5 ####[facility] WESTNCLIA [id number] [place] [address] [place] [facility] LABCLIA [id number] [address] [place]#### STFREV ####[facility] LABCLIA [id number] [address] [place] Monocytes (Bld) [#/Vol] 0.05 10*3/uL Normal <0.87 [facility] Comment on above: Order Comment: Speci men Type: BLOOD SPECIMENOrdering Facility: [facility] Address: [address] [place] [address] Performed By: #### 5 7782-5 ####[facility] WESTNCLIA [id number] [place] [address] [place] [facility]AP[facility] LABCLIA [id number] [place] [address] [place]#### STFREV ####[facility] LABCLIA [id number] [place] [address] [place] Monocytes/100 WBC (Bld) 2.1 % Normal [facility] Comment on above: Order Comment: Speci men Type: BLOOD SPECIMENOrdering Facility: [facility] Address: [address] [place] [address] Performed By: #### 5 7782-5 ####[facility] HOSPITALWARLIA [id number] [address] STATES OF [facility] LABCLIA [id number] [place] [address] [place]#### STFREV ####[facility] LABCLIA [id number] [place] [address] [place] Neutrophils (Bld) [#/Vol] 0.39 10*3/uL Low 1.45-7.50 [facility] Comment on above: Order Comment: Speci men Type: BLOOD SPECIMENOrdering Facility: [facility] Address: [address] [place], [place] [address] Performed By: #### 5 7782-5 ####[facility]A [id number] [address] STATES [facility] LABCLIA [id number] [address] [place]#### STFREV ####[facility] LABCLIA [id number] [address] [place] Neutrophils/100 WBC (Bld) 16.7 % Normal [facility] Comment on above: Order Comment: Speci men Type: BLOOD SPECIMENOrdering Facility: [facility] Address: [address] [place], [place] [address] Performed By: #### 5 7782-5 ####[facility] MILLWNCLIA [id number] [place] [address] [place] [facility] LABCLIA [id number] [place] [address] [place]#### STFREV ####[facility] LABCLIA [id number] [place] [address] [place] Nucleated RBC (Bld) [#/Vol] 0.03 10*3/uL High <0.01 [facility] Comment on above: Order Comment: Speci men Type: BLOOD SPECIMENOrdering Facility: [facility] Address: [address] [place] [address] Performed By: #### 5 7782-5 ####[facility]OSPITALLIA [id number] [address] LABCLIA [id number] [place] [address] [place]#### STFREV ####[facility] LABCLIA [id number] [place] [address] [place] Nucleated RBC/100 WBC (Bld) [Ratio] 1.3 /100 WBC Normal [facility] Comment on above: Order Comment: Speci men Type: BLOOD SPECIMENOrdering Facility: [facility] Address: [address] [place] [address] Performed By: #### 5 7782-5 ####[facility]ITALWNCLIA [id number] [address] LABCLIA [id number] [place] [address] [place]#### STFREV ####[facility] LABCLIA [id number] [place] [address] [place] PLATELET ESTIMATE Adequate Normal [facility] Comment on above: Order Comment: Speci men Type: BLOOD SPECIMENOrdering Facility: [facility] Address: [address] [place], [place] [address] Performed By: #### 5 7782-5 ####[facility] MILLTOWNCLIA [id number] [place] [address] [place] [facility] LABCLIA [id number] [place] [address] [place]#### STFREV ####[facility] LABIA [id number] [place] [address] [place] Platelet mean volume (Bld) [Entitic vol] 10.1 fL Normal 9.0-12.7 [facility] Comment on above: Order Comment: Speci men Type: BLOOD SPECIMENOrdering Facility: [facility] Address: [address] [place], [place] [address] Performed By: #### 5 7782-5 ####[facility]ITALWNCLIA [id number] [address] LABCLIA [id number] [address] [place]#### STFREV ####[facility] LABCLIA [id number] [place] [address] [place] Platelets (Bld) [#/Vol] 173 10*3/uL Normal 150-400 [facility] Comment on above: Order Comment: Speci men Type: BLOOD SPECIMENOrdering Facility: [facility] Address: [address] [place], [place] [address] Performed By: #### 5 7782-5 ####[facility] MILLTOWNCLIA [id number] [address] STATES OF AMERICAPRE[facility] LABCLIA [id number] [place] [address] [place]#### STFREV ####[facility] LABCLIA [id number] [place] [address] [place] Polychromasia LM Ql (Bld) Slight Normal [facility] Comment on above: Order Comment: Speci men Type: BLOOD SPECIMENOrdering Facility: [facility] Address: [address] [place] [address] Performed By: #### 5 7782-5 ####[facility] [id number] [place] [address] [place] [facility] LABCLIA [id number] [place] [address] [place]#### STFREV ####[facility] LABIA [id number] [place] [address] [place] RBC (Bld) [#/Vol] 3.73 10*6/uL Low 4.20-6.00 [facility] Comment on above: Order Comment: Speci men Type: BLOOD SPECIMENOrdering Facility: [facility] Address: [address] [place] [address] Performed By: #### 5 7782-5 ####[facility] [id number] [place] [address] [place] [facility] LABCLIA [id number] [place] [address] [place]#### STFREV ####[facility] LABCLIA [id number] [place] [address] [place] RED CELL MORPH Unremarkable Normal [facility] Comment on above: Order Comment: Speci men Type: BLOOD SPECIMENOrdering Facility: [facility] Address: [address] [place], [place] [address] Performed By: #### 5 7782-5 ####[facility] MILDREDWNCLIA [id number] [address] LABCLIA [id number] [place] [address] [place]#### STFREV ####[facility] LABCLIA [id number] [place] [address] [place] WBC (Bld) [#/Vol] 2.31 10*3/uL Low 3.70-11.00 [facility] Comment on above: Order Comment: Speci men Type: BLOOD SPECIMENOrdering Facility: [facility] Address: [address] [place] [address] Performed By: #### 5 7782-5 ####[facility] MILDREDPARKVIEW NOBLE HOSPITALLIA [id number] [address] LABCLIA [id number] [place] [address] [place]#### STFREV ####[facility] LABCLIA [id number] [place] [address] [place] Direct bilirubinon 2 Bilirubin.direct [Mass/Vol] 0.18 mg/dL 0.00-0.30 [facility] Work Phone: Laboratory - Chemistry and C hemistry - challengeon 07-15-2021 ALP [Catalytic activity/Vol] 92 U/L 45-117 [facility] Work Phone: ALT [Catalytic activity/Vol] 142 U/L 16-61 [facility] Work Phone: Globulin (S) [Mass/Vol] 3.8 g/dL 2.2-4.2 [facility] Work Phone: No Panel Informationon 07-15 Estimated GFR (MDRD) Amer 48 mL/min >60 [facility] Work Phone: Comment on above: GFR Calc Estimated GFR (MDRD) Non-Af Amer 39 mL/min >60 [facility] Work Phone: Comment on above: Non- GFR Calc PATHOLOGIST INTERPRETATION C BC/DIFFon 07-15-2021 Market Research Executive review Best (Unsp spec) [Interp] Reviewed by Merari Malcolm M.D. Normal [facility] Comment on above: Order Comment: Speci men Type: BLOOD SPECIMENOrdering Facility: [facility] Address: [address] [place] [address] Performed By: #### 5 7782-5 ####[facility]STNCLIA [id number] [address] LABCLIA [id number] [place] [address] [place]#### STFREV ####[facility] LABCLIA [id number] [place] [address] [place] STAFF REVIEW, CBCDIF Normal [facility] Comment on above: Order Comment: Speci men Type: BLOOD SPECIMENOrdering Facility: [facility] Address: [address] [place] [address] Result Comment: Norm ocytic anemia with slight polychromasia Leukopenia with absolute neutropenia Performed By: #### 5 7782-5 ####[facility] MILLTOWNCLIA [id number] [address] OF [facility] LABCLIA [id number] [place] [address] [place]#### STFREV ####[facility] LABCLIA [id number] [place] [id number] [place] Serum or plasma albumin jb urement (mass/volume)on 07-15-2021 Albumin [Mass/Vol] 3.7 g/dL 3.2-5.0 [facility] Work Phone: Serum or plasma cholesterol in HDL measurement (mass/volume)on 07-15-2021 Cholesterol in HDL [Mass/Vol] 30 mg/dL [facility] Work Phone: Comment on above: The drugs N-Acetylcy steine and Metamizole may falsely depress this assay. Reference Range HDL <40 mg/dL Low HDL Cholesterol HDL >or= 60 mg/dL High HDL Cholesterol Serum or plasma cholesterol in VLDL measurement (mass/volume)on 07-15-2021 Cholesterol in VLDL [Mass/Vol] 19 mg/dL 5-40 [facility] Work Phone: Serum or plasma creatinine m easurement (mass/volume)on 07-15-2021 Creatinine [Mass/Vol] 1.83 mg/dL 0.70-1.30 [facility] Work Phone: Comment on above: The validity of the calculated GFR & GFRAA in patients over 70 years has not been determined. Clinical correlation is essential. Serum or plasma low density lipoprotein (LDL) cholesterol measurement (mass/volume)on 07-15-2021 Cholesterol in LDL [Mass/Vol] 14 mg/dL 0-130 [facility] Work Phone: Thin prep Papanicolaou smear with manual screeningon 07-15-2021 Thin prep Papanicolaou smear with manual screening 48 U/L 15-37 [facility] Work Phone: Basic metabolic 2000 panelon 07-14-2021 Anion gap [Moles/Vol] 10 mmol/L Normal 9-18 [facility] Comment on above: Order Comment: Speci men Type: BLOOD SPECIMENOrdering Facility: [facility] Address: [address] [place] [address] Performed By: #### 2 4321-2 ####[facility] HOSPITALJake [id number] [place] [address] [place] Calcium [Mass/Vol] 8.6 mg/dL Normal 8.5-10.2 [facility] Comment on above: Order Comment: Speci men Type: BLOOD SPECIMENOrdering Facility: [facility] Address: [address] [place] [address] Performed By: #### 2 4321-2 ####[facility] MILLTOWNCLIA [id number] [place] [address] [place] Chloride [Moles/Vol] 101 mmol/L Normal 97-105 [facility] Comment on above: Order Comment: Speci men Type: BLOOD SPECIMENOrdering Facility: [facility] Address: [address] [place] [address] Performed By: #### 2 4321-2 ####[facility] HOSPITALWMOOSELIA [id number] [place] [address] [place] CO2 [Moles/Vol] 23 mmol/L Normal 22-30 [facility] Comment on above: Order Comment: Speci men Type: BLOOD SPECIMENOrdering Facility: [facility] Address: [address] [place] [address] Performed By: #### 2 4321-2 ####[facility] MILLWNCLIA [id number] [place] [address] [place] Creatinine [Mass/Vol] 1.49 mg/dL High 0.73-1.22 [facility] Comment on above: Order Comment: Speci men Type: BLOOD SPECIMENOrdering Facility: [facility] Address: [address] [place] [address] Performed By: #### 2 4321-2 ####[facility] MILLWNCLIA [id number] [place] [address] [place] ESTIMATED GLOMERULAR FILTRATION RATE 51 mL/min/1.73m??? Low >=60 [facility] Comment on above: Order Comment: Tori pappas Type: BLOOD SPECIMENOrdering Facility: [facility] Address: [address] [place] [address] Result Comment: Brandi mated Glomerular Filtration Rate [...] actual GFR. Performed By: #### 2 4321-2 ####[facility] [id number] [place] [address] [place] Glucose [Mass/Vol] 149 mg/dL High 74-99 [facility] Comment on above: Order Comment: Tori pappas Type: BLOOD SPECIMENOrdering Facility: [facility] Address: [address] [place] [address] Result Comment: The [place] [employer] (ADA) provides guidance for cutoff [...] Standards of Medical Care in Diabetes 2016, [place] [employer]. [employer]. 2016.39(Suppl 1). Performed By: #### 2 4321-2 ####[facility] [id number] [place] [address] [place] Potassium [Moles/Vol] 3.8 mmol/L Normal 3.7-5.1 [facility] Comment on above: Order Comment: Tori pappas Type: BLOOD SPECIMENOrdering Facility: [facility] Address: [address] [address] Performed By: #### 2 4321-2 ####[facility]ITALWNCLIA [id number] [place] [address] [place] Sodium [Moles/Vol] 134 mmol/L Low 136-144 [facility] Comment on above: Order Comment: Speci men Type: BLOOD SPECIMENOrdering Facility: [facility] Address: [address] [place] [address] Performed By: #### 2 4321-2 ####[facility] HOSPITALWARLIA [id number] [place] [address] [place] Urea nitrogen [Mass/Vol] 21 mg/dL Normal 9-24 [facility] Comment on above: Order Comment: Speci men Type: BLOOD SPECIMENOrdering Facility: [facility] Address: [address] [place] [address] Performed By: #### 2 4321-2 ####[facility]ITALLIA [id number] [place] [address] [place] Anion gap [Moles/Vol] 10 mmol/L 9 - 18 mmol/L [facility] Calcium [Mass/Vol] 8.6 mg/dL 8.5 - 10. 2 mg/dL [facility] Chloride [Moles/Vol] 101 mmol/L 97 - 10 5 mmol/L [facility] CO2 [Moles/Vol] 23 mmol/L 22 - 30 mmol/L [facility] Creatinine [Mass/Vol] 1.49 mg/dL High 0.73 - 1.22 mg/dL [facility] Estimated Glomerular Filtration Rate 51 mL/min/1.73m Low >=60 mL/min/1.73m [facility] Glucose [Mass/Vol] 149 mg/dL High 74 - 99 mg/dL [facility] Potassium [Moles/Vol] 3.8 mmol/L 3.7 - 5.1 mmol/L [facility] Sodium [Moles/Vol] 134 mmol/L Low 136 - 144 mmol/L [facility] Urea nitrogen [Mass/Vol] 21 mg/dL 9 - 24 mg/dL [facility] CBC W Auto Differential pane l (Bld)on 07-14-2021 Basophils/100 WBC (Bld) 1.0 % Normal [facility] Comment on above: Order Comment: Speci men Type: BLOOD SPECIMENOrdering Facility: [facility] Address: [address] [place] [address] Performed By: #### 5 7021-8 ####[facility] MILLTOWNCLIA [id number] [address] LABORATORYCLIA [id number] [place] [address] [place] [facility] Differential cell count method Nom (Bld) Manual Normal [facility] Comment on above: Order Comment: Speci men Type: BLOOD SPECIMENOrdering Facility: [facility] Address: [address] [place] [address] Performed By: #### 5 7021-8 ####[facility] MILLTOWNCLIA [id number] [address] LABORATORYCLIA [id number] [place] [address] [place] [facility] Eosinophils (Bld) [#/Vol] 0.14 10*3/uL Normal <0.46 [facility] Comment on above: Order Comment: Speci men Type: BLOOD SPECIMENOrdering Facility: [facility] Address: [address] [place] [address] Performed By: #### 5 7021-8 ####[facility] MILLTOWNCLIA [id number] [address] LABORATORYCLIA [id number] [address] [place] Eosinophils/100 WBC (Bld) 4.0 % Normal [facility] Comment on above: Order Comment: Speci men Type: BLOOD SPECIMENOrdering Facility: [facility] Address: [address] [place] [address] Performed By: #### 5 7021-8 ####[facility] MILDREDTOWMOOSELIA [id number] [address] LABORATORYCLIA [id number] [place] [address] [place] [facility] Erythrocyte distribution width (RBC) [Ratio] 13.6 % Normal 11.5-15.0 [facility] Comment on above: Order Comment: Speci men Type: BLOOD SPECIMENOrdering Facility: [facility] Address: [address] [place] [address] Performed By: #### 5 7021-8 ####[facility] WESTMOOSELIA [id number] [address] LABORATORYCLIA [id number] [address] STATES OF [facility] Hematocrit (Bld) [Volume fraction] 35.1 % Low 39.0-51.0 [facility] Comment on above: Order Comment: Speci men Type: BLOOD SPECIMENOrdering Facility: [facility] Address: [address] [place] [address] Performed By: #### 5 7021-8 ####[facility] MILDREDEILEENLIA [id number] [address] LABORATORYCLIA [id number] [place] [address] [place] Hemoglobin (Bld) [Mass/Vol] 11.8 g/dL Low 13.0-17.0 [facility] Comment on above: Order Comment: Speci men Type: BLOOD SPECIMENOrdering Facility: [facility] Address: [address] [place] [address] Performed By: #### 5 7021-8 ####[facility] MILLWNCLIA [id number] [address] LABORATORYCLIA [id number] [place] [address] [place] Lymphocytes (Bld) [#/Vol] 2.56 10*3/uL Normal 1.00-4.00 [facility] Comment on above: Order Comment: Speci men Type: BLOOD SPECIMENOrdering Facility: [facility] Address: [address] [place] [address] Performed By: #### 5 7021-8 ####[facility] [id number] [address] LABORATORYCLIA [id number] [place] [address] [place] Lymphocytes/100 WBC (Bld) 74.0 % Normal [facility] Comment on above: Order Comment: Speci men Type: BLOOD SPECIMENOrdering Facility: [facility] Address: [address] [place] [address] Performed By: #### 5 7021-8 ####[facility] [id number] [address] LABORATORYCLIA [id number] [place] [address] [place] MCH (RBC) [Entitic mass] 32.6 pg Normal 26.0-34.0 [facility] Comment on above: Order Comment: Speci men Type: BLOOD SPECIMENOrdering Facility: [facility] Address: [address] [place] [address] Performed By: #### 5 7021-8 ####[facility]ALL[facility] [id number] [address] LABORATORYCLIA [id number] [place] [address] [place] MCHC (RBC) [Mass/Vol] 33.6 g/dL Normal 30.5-36.0 [facility] Comment on above: Order Comment: Speci men Type: BLOOD SPECIMENOrdering Facility: [facility] Address: [address] [place] [address] Performed By: #### 5 7021-8 ####[facility]PITALWNCLIA [id number] [address] LABORATORYCLIA [id number] [place] [address] [place] MCV (RBC) [Entitic vol] 97.0 fL Normal 80.0-100.0 [facility] Comment on above: Order Comment: Speci men Type: BLOOD SPECIMENOrdering Facility: [facility] Address: [address] [place] [address] Performed By: #### 5 7021-8 ####[facility] [id number] [address] LABORATORYCLIA [id number] [place] [address] [place] Neutrophils (Bld) [#/Vol] 0.73 10*3/uL Low 1.45-7.50 [facility] Comment on above: Order Comment: Speci men Type: BLOOD SPECIMENOrdering Facility: [facility] Address: [address] [place] [address] Performed By: #### 5 7021-8 ####[facility]ALL[facility] [id number] [address] LABORATORYCLIA [id number] [address] [place] Neutrophils/100 WBC (Bld) 21.0 % Normal [facility] Comment on above: Order Comment: Speci men Type: BLOOD SPECIMENOrdering Facility: [facility] Address: [address] [place], [place] [address] Performed By: #### 5 7021-8 ####[facility] MILLBERNARDAWMOOSELIA [id number] [address] LABORATORYCLIA [id number] [place] [address] [place] Nucleated RBC/100 WBC (Bld) [Ratio] 0.0 /100 WBC Normal [facility] Comment on above: Order Comment: Speci men Type: BLOOD SPECIMENOrdering Facility: [facility] Address: [address] [place] [address] Performed By: #### 5 7021-8 ####[facility] MILDREDEILEENLIA [id number] [address] LABORATORYCLIA [id number] [place] [address] [place] PLATELET ESTIMATE Decreased Normal [facility] Comment on above: Order Comment: Speci men Type: BLOOD SPECIMENOrdering Facility: [facility] Address: [address] [address] Performed By: #### 5 7021-8 ####[facility] MILDREDEILEENLIA [id number] [address] LABORATORYCLIA [id number] [place] [address] [place] Platelet mean volume (Bld) [Entitic vol] 11.1 fL Normal 9.0-12.7 [facility] Comment on above: Order Comment: Speci men Type: BLOOD SPECIMENOrdering Facility: [facility] Address: [address] Performed By: #### 5 7021-8 ####[facility] MILLTOWNCLIA [id number] [address] LABORATORYCLIA [id number] [place] [address] [place] Platelets (Bld) [#/Vol] 102 10*3/uL Low 150-400 [facility] Comment on above: Order Comment: Speci men Type: BLOOD SPECIMENOrdering Facility: [facility] Address: [address] [place] [address] Result Comment: No c lot detected Performed By: #### 5 7021-8 ####[facility] [id number] [address] LABORATORYCLIA [id number] [place] [address] [place] RBC (Bld) [#/Vol] 3.62 10*6/uL Low 4.20-6.00 [facility] Comment on above: Order Comment: Speci men Type: BLOOD SPECIMENOrdering Facility: [facility] Address: [address] [place] [address] Performed By: #### 5 7021-8 ####[facility] [id number] [address] LABORATORYCLIA [id number] [place] [address] [place] RED CELL MORPH Reviewed. Unremarkable Normal [facility] Comment on above: Order Comment: Speci men Type: BLOOD SPECIMENOrdering Facility: [facility] Address: [address] [place] [address] Performed By: #### 5 7021-8 ####[facility] [id number] [address] LABORATORYCLIA [id number] [place] [address] [place] WAM - ABS BASO 0.03 k/uL Normal <0.11 [facility] Comment on above: Order Comment: Speci men Type: BLOOD SPECIMENOrdering Facility: [facility] Address: [address] [place] [address] Performed By: #### 5 7021-8 ####[facility] MILLTOWNCLIA [id number] [address] LABORATORYCLIA [id number] [place] [address] [place] WAM - ABS MONO 0.00 k/uL Normal <0.87 [facility] Comment on above: Order Comment: Speci men Type: BLOOD SPECIMENOrdering Facility: [facility] Address: [address] [place] [address] Performed By: #### 5 7021-8 ####[facility] MILLTOWNCLIA [id number] [address] LABORATORYCLIA [id number] [place] [address] [place] WAM - MONO% 0.0 % Normal [facility] Comment on above: Order Comment: Speci men Type: BLOOD SPECIMENOrdering Facility: [facility] Address: [address] [place] [address] Performed By: #### 5 7021-8 ####[facility] MILDREDBERNARDAWNCLIA [id number] [address] LABORATORYCLIA [id number] [place] [address] [place] WAM ABSOLUTE NRBC <0.01 Normal <0.01 [facility] Comment on above: Order Comment: Speci men Type: BLOOD SPECIMENOrdering Facility: [facility] Address: [address] [place] [address] Performed By: #### 5 7021-8 ####[facility] MILLTOWNCLIA [id number] [place] [address] [facility] LABORATORYCLIA [id number] [place] [address] [place] WBC (Bld) [#/Vol] 3.46 10*3/uL Low 3.70-11.00 [facility] Comment on above: Order Comment: Speci men Type: BLOOD SPECIMENOrdering Facility: [facility] Address: [address] [id number] Performed By: #### 5 7021-8 ####[facility] MILLTOWNCLIA [id number] [address] LABORATORYCLIA [id number] [address] [place] CNOVSPon 07-14-2021 CNOVSP Visit (SP) Office (HEMJESUS ALBERTO) SHELBI GARCIA ([id number]) 1955 M Date Time Provider Department 07/14/21 [...] PMH significant for type 2 diabetes, CAD (WI x3-most recent 2010; each treated with PCI/stent--5 stents total--most recent 2010), atrial fibrillation, CKD, RA, DVT (IVC) and sensory neuropathy. 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 No petechiae. 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 No focal motor [...] Abs Lymph 1.00 - 4.00 k/uL 3.51 [place]% % 5.5 Abs [place] <0.87 k/uL 0.46 Eosin% % 3.3 Abs Eosin <0.46 k/uL 0.28 Baso% % 0.8 Abs Baso <0.11 k/uL 0.07 Nucleated Reds 0 /100 WBC 0.0 Absolute nRBC <0.01 k/uL <0.01 Diff Type Auto Diff Pathologist Interpretatio (more content not included)... Normal [facility] [place] 07-14-2021 CNPN Telephone (HEMJESUS ALBERTO) SHELBI GARCIA ([id number]) 1955 M Date Time Provider Department 07/14/21 [...] [C90.00] Order(s):CBC + DIFF [SQCBCDIF] Order #: [id number] FUTURE BASIC METABOLIC PNL [SQBMP] Order #: [id number] FUTURE Prescriptions as of 07/14/2021 - apixaban [...] 1 tablet by mouth once daily. - H-Kqshtlu-Q4 Hajl-Ezylqx-V81 3-35-2 mg tab or Capsule Take 1 [...] Status:Closed by DORENE CHEN LPN on 07/14/21 [facility] Telephone (AMANDA) SHELBI GARCIA ([id number]) 1955 M Date Time Provider Department 07/14/21 [...] WITH CBC AND DIFF [SQSTREV] Order #: [id number] FUTURE Prescriptions as of 07/15/2021 - apixaban [...] 1 tablet by mouth once daily. - U-Zkmgqig-H3 Iemd-Sigqyr-A86 3-35-2 mg tab or Capsule Take 1 [...] Status:Closed by NANCY QUEZADA on 07/15/21 Normal [facility] PT panel Coag (PPP)on 2021 INR Coag (PPP) [Relative time] 1.0 {INR} Normal 0.9-1.3 [facility] Comment on above: Order Comment: Tori pappas Type: BLOOD SPECIMENOrdering Facility: [facility] Address: [address] [place] [address] Result Comment: Radha min K Antagonist (VKA) Therapeutic Range: INR 2 to 3 (Target INR of 2.5) Note: For patients treated with VKA drugs, such as warfarin, the [employer] 2012 Guideline recommends [...] 2.5 to 3.5 (target INR of 3). Dianett GH, et al. Chest 2012, 141:7S-47S Janiya RA, et al. [facility] 2017, 70: 252-289 Performed By: #### 3 4528-0, 29183-9 ####[facility] LABIA [id number] [address] [id number] [place] PT Coag (PPP) [Time] 10.3 s Normal 9.7-13.0 [facility] Comment on above: Order Comment: Tori men Type: BLOOD SPECIMENOrdering Facility: [facility] Address: [address] [place] [address] Performed By: #### 3 4528-0, 75206-9 ####[facility] LABCLIA [id number] [address] [id number] [place] aPTT PPPon 07-14-2021 aPTT Coag (PPP) [Time] 25.6 s Normal 23.0-32.4 Cl [facility] Comment on above: Order Comment: Speci men Type: BLOOD SPECIMENOrdering Facility: [facility] Address: [address] [place] [address] Performed By: #### 3 4528-0, 67134-7 ####[facility] LABCLIA [id number] [id number] [id number] [facility] CNPNon 06-24-2021 CNPN Telephone (HEMAWS) SHELBI GARCIA ([id number]) 1955 M Date Time Provider Department 06/24/21 JP DENIS During your visit today, we recorded the following information about you: Sangeetha Boudreaux Pss 06/24/2021 2:45 PM Signed Patient is calling for his bone marrow biopsy results. Please advise the patient. Dorene Chen LPN 06/24/2021 3:00 PM Signed Bone marrow bx was done yesterday at [facility], called pt to let him know we wont have path results back for a week to 10 days. Pt voices understanding. Dorene Pickett 07/13/2021 10:21 AM Signed Patient called for his bone marrow biopsy results, can be reached at [phone] Thank you Freida Quezada LPN 07/13/2021 12:11 [...] Signed SPOKE TO PT AND SCHEDULED. Cyndi Viv Allergies As of Date: 06/24/2021 Noted Allergy [...] 1 tablet by mouth once daily. - Y-Ucmhjqh-S4 Muim-Isdxvz-Q11 3-35-2 mg tab or Capsule Take 1 [...] by DORENE CHEN LPN on 06/24/21 Normal [facility] INR in Blood by Coagulation assayon 06-23-2021 INR Coag (Bld) [Relative time] 0.9 {INR} [facility] Work Phone: Laboratory - Coagulationon 0 06-23-2021 aPTT Coag (Bld) [Time] 27.9 s 24.1-36.2 Wo amy [facility] Work Phone: PT Coag (PPP) [Time] 11.9 s 11.7-14.9 [facility]: Platelets bldon 06-23-2021 Platelets (Bld) [#/Vol] 217 10*3/uL 150-450 [facility] Work Phone: CNPNon 06-22-2021 CNPN Telephone (HEMAWS) SHELBI GARCIA ([id number]) 1955 M Date Time Provider Department 06/22/21 JP DENIS During your visit today, we recorded the following information about you: Sangeetha Pickett 06/22/2021 10:52 AM Signed Patient is calling to let Dr Denis know that PCP office ordered him Prednisone 5 mg 2 tablets a day for swelling in his fingers two weeks ago. Patients last dose was 06/19 he is scheduled at [facility] tomorrow for bone biopsy and wanted [...] 1 tablet by mouth once daily. - E-Wtlbbyt-J5 Xciv-Cxkhdh-P66 3-35-2 mg tab or Capsule Take 1 [...] Encounter Status:Closed by NANCY QUEZADA on 06/22/21 Normal [facility] 06-16-2021 [facility] Telephone (HEMAWS) RADHASHELBI Mateusz ([id number]) 1955 M Date Time Provider Department 06/16/21 [...] instructed to do so by radiology at [facility]. DO Nancy Fernandes LPN 06/16/2021 8:39 AM Signed Spoke with pt. He is taking Eliquis 5 mg BID. ( added to medication list) Pt. Started holding the Eliquis, ASA, and Plavix yesterday as instructed by [facility] radiology dept. AIDAN Vergara DO 06/16/2021 [...] 1 tablet by mouth once daily. - M-Pvhjpsf-J0 Emge-Ybttew-S96 3-35-2 mg tab or Capsule Take 1 [...] Status:Closed by DORENE CHEN LPN on 06/16/21 [facility] CNOVSPon 06-15-2021 CNOVSP Visit (SP) Office (HEMAWS) SHELBI GARCIA ([id number]) 1955 M Date Time Provider Department 06/15/21 [...] PMH significant for type 2 diabetes, CAD ([place] x3-most recent 2010; each treated with PCI/stent--5 stents total--most recent 2010), atrial fibrillation, CKD, RA, DVT (IVC) and sensory neuropathy. 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 No petechiae. 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 No focal motor [...] Abs Lymph 1.00 - 4.00 k/uL 3.51 [place]% % 5.5 Abs [place] <0.87 k/uL 0.46 Eosin% % 3.3 Abs Eosin <0.46 k/uL 0.28 Baso% % 0.8 Abs Baso <0.11 k/uL 0.07 Nucleated Reds 0 /100 WBC 0.0 Absolute nRBC <0.01 k/uL <0.01 Diff Type Auto Diff Pathologist Interpretation, CBCDIF SEE COMMENT Pathologist (DANIELLE) The Patholog (more content not included)... Normal [facility] [facility] SHE[facility]BI [facility] ([id number]) 1955 M Date Time Provider Department 06/15/21 JP DENIS HEMAWS During your visit today, we recorded the following information about you: Dasia Quintero Pss 06/15/2021 10:41 AM Signed Please write order for CT guided bone marrow biopsy. Patient is scheduled at [facility] on 06/23 @ 9:00 AM. Patient aware to arrive by 8:00, NPO after midnight and that he will need a charter bus driver, and someone to stay with him for 24 hours. Patient also aware to bring current med list to appt and to stay off plavix for 7 days prior to appt-today would be his last dose. Sara Roy Pss 06/15/2021 10:47 AM Signed Ashly from [facility] called requesting an order for procedure, HANDP within 30 days, order for labs - PT, PTT, INR and any imaging from patient. Please fax to [phone] Attn: Ashly. Ronel Rosen LPN 06/15/2021 11:00 AM Signed Please file orders and I will fax to [facility]. Ronel Denis DO 06/15/2021 1:19 PM Signed Thank you. Orders filed. DO Ronel Fernandes LPN 06/15/2021 2:04 PM Signed Awaiting completion of today's OV note before faxing all information to [facility]. Ronel Quezada LPN 06/16/2021 8:46 AM [...] [C90.00] Order(s):IMAGING GUIDED BIOPSY BONE MARROW (HEMATOLOGY) [1501526] Order #: [id number] PROTHROMBIN TIME/PT [SQPT] Order #: [id number] FUTURE ACTIVATED PTT [SQPTT] Order #: [id number] FUTURE Prescriptions as of 06/16/2021 - apixaban [...] 1 tablet by mouth once daily. - K-Kcgirin-H9 Xinm-Irgcdq-Y63 3-35-2 mg tab or Capsule Take 1 [...] Status:Closed by NANCY QUEZADA on 06/16/21 Normal [facility] CT WB SKULL TO KNEE WO IVCON on 06-10-2021 CT WB SKULL TO KNEE WO IVCON * * *Final Report* * * DATE OF EXAM: Jun 10 2021 2:31PM [facility] 2096 - CT WB SKULL TO KNEE [...] Mild-moderate atherosclerotic calcifications of the imaged aorta. Regulatory Submissions Associate (topogram) images: No additional findings. IMPRESSION: No CT evidence of multiple myeloma. Construction Job Titles: HALIMA Transcribe Date/Time: Jun 10 2021 2:52P Dictated by : REGGIE NASH DO This examination was interpreted and the report reviewed and electronically signed by: REGGIE NASH DO on Jun 10 2021 3:09PM EST [id number] Normal [facility] CT WHOLE BODY SKULL TO KNEE WO IVCONon 06-10-2021 [facility] Monoclon Prot 24 Uron 2021 UMPA Interpretation SEE COMMENT Normal [facility] Comment on above: Result Comment: Atyp ical restricted bands are present in the IgA and lambda regions, with an additional atypical band in the lambda region. 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 Performed By: #### U 24MPA, UEPG24 ####[facility] [address]qq[address] AveCCharles [place] [phone] UMPA Result M protein is present. Critically abnormal No M protein is identified. [facility] Comment on above: Performed By: #### U 24MPA, UEPG24 ####[facility] [address] AvNapaki[place], [place] [phone] [facility] Staff Review Reviewed by Sirisha Wolfe MD, PhD. ([id number]) Normal [facility] Comment on above: Performed By: #### U 24MPA, UEPG24 ####[facility] [address]Christ[address] [place] [phone] Period / Volumeon 05-30-2021 Collection End Date [facility] Comment on above: Performed By: #### U 24MPA, UEPG24 ####[facility] Llpem[address]zvrcs[address] AvN[place], [place] [phone] Collection End Time 714 [facility] Comment on above: Performed By: #### U 24MPA, UEPG24 ####[facility] [address]lhg[address] AveCDerby Line, [place] [phone] Collection Start Date [facility] Comment on above: Performed By: #### U 24MPA, UEPG24 ####[facility] [address] AveCDerby Line, [place] [phone] Collection Start Time 914 [facility] Comment on above: Performed By: #### U 24MPA, UEPG24 ####[facility] [address] AveClevelandLamb[place], [place] [phone] Period 22 hr Normal [facility] Comment on above: Performed By: #### U 24MPA, UEPG24 ####[facility]ClevelandL[place], [place] [phone] Volume 2375 mL Normal [facility] Comment on above: Performed By: #### U 24MPA, [id number] ####[facility]CDer[address], [place] [phone] Prot Elect Ur 24 hron 2021 Albumin, 24 hr 41.9 % Normal [facility] Comment on above: Performed By: #### U 24MPA, UEPG24 ####[place] [address]CCharles [place] [phone] Alpha 1 Globul, 24hr 4.3 % Normal [facility] [place] [facility] Comment on above: Performed By: #### U 24MPA, UEPG24 ####[facility]ClevelKenneth [place] [phone] Alpha 2 Globul, 24hr 13.1 % Normal [facility] [place] [facility] Comment on above: Performed By: #### U 24MPA, UEPG24 ####[facility] [address]ClevelandRobert [place] [phone] Beta Globulin, 24hr 28.3 % Normal [facility] Comment on above: Performed By: #### U 24MPA, UEPG24 ####[facility], [place] [phone] Gamma Globulin, 24hr 12.3 % Normal [facility] [place] [facility] Comment on above: Performed By: #### U 24MPA, UEPG24 ####[facility]Cleveland[address], [place] [phone] Interpretation, 24hr An M protein is identified on protein electrophoresis. Normal [facility] Comment on above: Result Comment: See separate immunofixation report for characterization of the M protein. Performed By: #### U 24MPA, UEPG24 ####[place] [address] [place], [place] [phone] M Bruce Quant/24 Hr 0.04 gm/24 Hr High 0.00 [facility] Comment on above: Performed By: #### U 24MPA, UEPG24 ####[address] [phone] Protein Ur Conc (UEPG24) 10 mg/dL Normal 0-20 [facility] Comment on above: Performed By: #### U 24MPA, UEPG24 ####[address] [phone] Protein Urine 24hr (UEPG24) 0.24 gm/24 Hr High <0.16 [facility] Comment on above: Performed By: #### U 24MPA, UEPG24 ####[address] [phone] Staff Review, 24hr Reviewed by Sirisha Wolfe MD, PhD. ([id number]) Normal [facility] Comment on above: Performed By: #### U 24MPA, UEPG24 ####[place] [address] [place], [place] [phone] B2 Microglobulinon 2 B2 Microglobulin 3.2 mg/L High <3.1 [facility] Comment on above: Performed By: #### B 2M, HREMOP, STREV, SERMPA, SEPG ####[facility] [place], [place] [phone] CNOVSPon 05-24-2021 CNOVSP Visit (SP) Office (HEMAWS) SHELBI GARCIA ([id number]) 1955 M Date Time Provider Department 05/24/21 [...] PMH significant for type 2 diabetes, CAD (WI x3; each treated with PCI/stent--5 stents altogether), atrial fibrillation, CKD, RA and sensory neuropathy. 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 [...] No jaundice or rash. No petechiae. 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 No focal motor [...] but righ (more content not included)... Normal [facility] Comp Metabolic Panelon 05-24 Albumin [Mass/Vol] 4.6 g/dL Normal 3.9-4.9 [facility] ALP [Catalytic activity/Vol] 89 U/L Normal 38-113 [facility] ALT [Catalytic activity/Vol] 20 U/L Normal 10-54 [facility] Anion gap [Moles/Vol] 10 mmol/L Normal 9-18 [facility] AST [Catalytic activity/Vol] 16 U/L Normal 14-40 [facility] Bilirubin [Mass/Vol] 0.6 mg/dL Normal 0.2-1.3 [facility] [place] [facility] Calcium [Mass/Vol] 9.2 mg/dL Normal 8.5-10.2 [facility] Chloride [Moles/Vol] 104 mmol/L Normal 97-105 [facility] [place] [facility] CO2 [Moles/Vol] 26 mmol/L Normal 22-30 [facility] Creatinine [Mass/Vol] 1.34 mg/dL High 0.73-1.22 [facility] eGFR- Amer. >60 Normal [facility] eGFR-All Other Races 53 . Normal [facility] [place] [facility] Comment on above: Result Comment: eGFR (Estimated [...] [email or web address]. Glucose [Mass/Vol] 116 mg/dL High 74-99 [facility] Comment on above: Result Comment: The [place] [employer] (ADA) provides guidance for cutoff [...] Standards of Medical Care in Diabetes 2016, [place] [employer]. Diabetes Care. 2016.39(Suppl 1). Potassium [Moles/Vol] 4.1 mmol/L Normal 3.7-5.1 [facility] Protein [Mass/Vol] 7.5 g/dL Normal 6.3-8.0 [facility] Sodium [Moles/Vol] 140 mmol/L Normal 136-144 [facility] Urea nitrogen [Mass/Vol] 20 mg/dL Normal 9-24 [facility] Hepatitis Remote Panelon HBsAg Negative Normal Negative [facility] Comment on above: Performed By: #### B 2M, HREMOP, STREV, SERMPA, SEPG ####[facility] [place], [place] [phone] Hep B Core Ab,Total Negative Normal Negative [facility] Comment on above: Performed By: #### B 2M, HREMOP, STREV, SERMPA, SEPG ####[facility]CD[address], [place] [phone] Hepatitis C Ab IA Negative Normal Negative [facility] Comment on above: Performed By: #### B 2M, HREMOP, STREV, SERMPA, SEPG ####[facility] [place] [phone] HepB Surface Ab,Qual Negative Normal Negative [facility] [place] [facility] Comment on above: Result Comment: NEGA TIVE Performed By: #### B 2M, HREMOP, STREV, SERMPA, SEPG ####[facility]CDer[address], [place] [phone] LDon 05-24-2021 LD 203 U/L Normal 135-225 [facility] Comment on above: Result Comment: Hemo lysis [...] 05-24 K/L Ratio, Serum 0.23 Low 0.26-1.65 [facility] Comment on above: Performed By: #### B 2M, HREMOP, STREV, SERMPA, SEPG ####[facility], [place] [phone] [place], Free, Serum 14.2 mg/L Normal 3.30-19.40 [facility] Comment on above: Result Comment: Test performed by an immunoturbidimetric assay on [employer] instrument from [facility]. Immunoglobulin free light chain assay results should be interpreted in conjunction with other tests and in correlation with clinical picture. Performed By: #### B 2M, HREMOP, STREV, SERMPA, SEPG ####[place] [address] [place] [phone] Lambda, Free, Serum 61.1 mg/L High 5.7-26.3 [facility] Comment on above: Result Comment: Test performed by an immunoturbidimetric assay on [employer] instrument from [facility]. Immunoglobulin free light chain assay results should be interpreted in conjunction with other tests and in correlation with clinical picture. Performed By: #### B 2M, HREMOP, STREV, SERMPA, SEPG ####[address] [phone] MPA Interpretation SEE COMMENT Normal [facility] Comment on above: Result Comment: Atyp ical restricted bands are present in the IgA and lambda regions. Consistent with IgA lambda monoclonal gammopathy. Performed By: #### B 2M, HREMOP, STREV, SERMPA, SEPG ####[address] [phone] Result M protein is present. Critically abnormal No M protein is identified. [facility] Comment on above: Performed By: #### B 2M, HREMOP, STREV, SERMPA, SEPG ####[place] [address]Christ[place] [phone] [facility] Serum IgA 610 mg/dL High 70-400 [facility] Comment on above: Performed By: #### B 2M, HREMOP, STREV, SERMPA, SEPG ####[place] [address] [place] [phone] [facility] Serum IgG 638 mg/dL Low 700-1600 [facility] Comment on above: Performed By: #### B 2M, HREMOP, STREV, SERMPA, SEPG ####[place] [address] [place] [phone] MPA Serum IgM 66 mg/dL Normal 40-230 [facility] Comment on above: Performed By: #### B 2M, HREMOP, STREV, SERMPA, SEPG ####[facility] [address] AveClevelKenneth Ville [phone] Staff Review Reviewed by Dasia Kessler MD ([id number]) Normal [facility] Comment on above: Performed By: #### B 2M, HREMOP, STREV, SERMPA, SEPG ####[facility]ClevelKenneth [place] [phone] Path Interp w CBCDIFon 05-24 Abs Baso 0.07 k/uL Normal <0.11 [facility] Comment on above: Performed By: #### B 2M, HREMOP, STREV, SERMPA, SEPG ####[facility]ClevelandRobert [place] [phone] Abs [place] 0.46 k/uL Normal <0.87 [facility] Comment on above: Performed By: #### B 2M, HREMOP, STREV, SERMPA, SEPG ####[place] [address] AveClevelKenn[place] [phone] Abs Neut 4.06 k/uL Normal 1.45-7.50 [facility] Comment on above: Performed By: #### B 2M, HREMOP, STREV, SERMPA, SEPG ####[facility]ClevelKenn[address] [place] [phone] Absolute nRBC <0.01 Normal <0.01 [facility] Comment on above: Performed By: #### B 2M, HREMOP, STREV, SERMPA, SEPG ####[place] [address]ClevelKenn[place] [phone] Basophils/100 WBC (Bld) 0.8 % Normal [facility] Comment on above: Performed By: #### B 2M, HREMOP, STREV, SERMPA, SEPG ####[place] [address] AveClevelandSe[place] [phone] DTYPE Auto Diff Normal [facility] Comment on above: Performed By: #### B 2M, HREMOP, STREV, SERMPA, SEPG ####[place] [address] [place] [phone] Eosinophils (Bld) [#/Vol] 0.28 10*3/uL Normal <0.46 [facility] Comment on above: Performed By: #### B 2M, HREMOP, STREV, SERMPA, SEPG ####[place] [address] [place] [phone] Eosinophils/100 WBC (Bld) 3.3 % Normal [facility] Comment on above: Performed By: #### B 2M, HREMOP, STREV, SERMPA, SEPG ####[place] [address]ClevelKenn[address] [place] [phone] Erythrocyte distribution width (RBC) [Ratio] 13.7 % Normal 11.5-15.0 [facility] Comment on above: Performed By: #### B 2M, HREMOP, STREV, SERMPA, SEPG ####[place] [address]ClevelKenn[address] [place] [phone] Hematocrit (Bld) [Volume fraction] 46.0 % Normal 39.0-51.0 [facility] Comment on above: Performed By: #### B 2M, HREMOP, STREV, SERMPA, SEPG ####[place] [address]ClevelKenn[address] [place] [phone] Hemoglobin (Bld) [Mass/Vol] 14.9 g/dL Normal 13.0-17.0 [facility] Comment on above: Performed By: #### B 2M, HREMOP, STREV, SERMPA, SEPG ####[place] [address]ClevelKenn[address] [place] [phone] Lymphocytes (Bld) [#/Vol] 3.51 10*3/uL Normal 1.00-4.00 [facility] Comment on above: Performed By: #### B 2M, HREMOP, STREV, SERMPA, SEPG ####[place] [address] [place] [phone] Lymphocytes/100 WBC (Bld) 41.8 % Normal [facility] Comment on above: Performed By: #### B 2M, HREMOP, STREV, SERMPA, SEPG ####[place] [address] [place] [phone] MCH 32.7 pG Normal 26.0-34.0 [facility] Comment on above: Performed By: #### B 2M, HREMOP, STREV, SERMPA, SEPG ####[place] [address] [place] [phone] MCHC (RBC) [Mass/Vol] 32.4 g/dL Normal 30.5-36.0 [facility] Comment on above: Performed By: #### B 2M, HREMOP, STREV, SERMPA, SEPG ####[place] [address] [place] [phone] MCV (RBC) [Entitic vol] 100.9 fL High 80.0-100.0 [facility] Comment on above: Performed By: #### B 2M, HREMOP, STREV, SERMPA, SEPG ####[place] [address] [place] [phone] Monocytes/100 WBC (Bld) 5.5 % Normal [facility] Comment on above: Performed By: #### B 2M, HREMOP, STREV, SERMPA, SEPG ####[place] [address] [place] [phone] Neutrophils/100 WBC (Bld) 48.6 % Normal [facility] Comment on above: Performed By: #### B 2M, HREMOP, STREV, SERMPA, SEPG ####[facility]CDerby [address], [place] [phone] NRBCs 0.0 /100 WBC Normal 0 [facility] Comment on above: Performed By: #### B 2M, HREMOP, STREV, SERMPA, SEPG ####[place] [address] [place] [phone] Pathologist Interp SEE COMMENT Normal [facility] Comment on above: Result Comment: The Pathologist [...] #### B 2M, HREMOP, STREV, SERMPA, SEPG ####[place] [address] [place] [phone] Pathologist: The Pathologist Interpretation on this sample was cancelled because the hematology analyzer did not flag any parameters as requiring manual review. If there is a specific clinical concern for which you would like a pathologist to review the blood smear, please call Lab Client Services within 28 days. Normal [facility] Comment on above: Result Comment: Acco unt Credited Performed By: #### B 2M, HREMOP, STREV, SERMPA, SEPG ####[place] [address] [place] [phone] Platelet mean volume (Bld) [Entitic vol] 10.7 fL Normal 9.0-12.7 [facility] Comment on above: Performed By: #### B 2M, HREMOP, STREV, SERMPA, SEPG ####[facility] [place] [phone] Platelets (Bld) [#/Vol] 229 10*3/uL Normal 150-400 [facility] Comment on above: Performed By: #### B 2M, HREMOP, STREV, SERMPA, SEPG ####[facility] AveClevelOwens Cross [place]s, [place] [phone] RBC (Bld) [#/Vol] 4.56 10*6/uL Normal 4.20-6.00 [facility] Comment on above: Performed By: #### B 2M, HREMOP, STREV, SERMPA, SEPG ####[place] [address]ClevelKenn[address] [place] [phone] WBC (Bld) [#/Vol] 8.40 10*3/uL Normal 3.70-11.00 [facility] Comment on above: Performed By: #### B 2M, HREMOP, STREV, SERMPA, SEPG ####[place] [address] [place] [phone] Protein Electrophor.on 05-24 Albumin [Mass/Vol] 4.14 g/dL Normal 3.37-4.23 [facility] Comment on above: Performed By: #### B 2M, HREMOP, STREV, SERMPA, SEPG ####[place] [address]ClevelKenn[address] [place] [phone] Alpha 1 Globulin 0.26 gm/dL Normal 0.18-0.31 [facility] Comment on above: Performed By: #### B 2M, HREMOP, STREV, SERMPA, SEPG ####[place] [address]ClevelKenn[address] [place] [phone] Alpha 2 Globulin 0.72 gm/dL Normal 0.52-0.97 [facility] Comment on above: Performed By: #### B 2M, HREMOP, STREV, SERMPA, SEPG ####[place] [address] AveClevelKenn[place] [phone] Beta Globulin 0.97 gm/dL Normal 0.84-1.36 [facility] Comment on above: Performed By: #### B 2M, HREMOP, STREV, SERMPA, SEPG ####[facility]ClevelOwens Cross [place], [place] [phone] Gamma Globulin 1.11 gm/dL Normal 0.70-1.44 [facility] Comment on above: Performed By: #### B 2M, HREMOP, STREV, SERMPA, SEPG ####[facility]Cleveland[place], [place] [phone] Interpretation SEE COMMENT Normal [facility] Comment on above: Result Comment: An M protein is identified on protein electrophoresis. See separate immunofixation report for characterization of the M protein. Performed By: #### B 2M, HREMOP, STREV, SERMPA, SEPG ####[place] [address], [place] [phone] M Protein Location Gamma fraction Normal [facility] Comment on above: Performed By: #### B 2M, HREMOP, STREV, SERMPA, SEPG ####[place] [address]ClevelOw[address], [place] [phone] M Bruce Concentratn 0.44 gm/dL High 0.00 [facility] Comment on above: Performed By: #### B 2M, HREMOP, STREV, SERMPA, SEPG ####[place] [address], [place] [phone] Protein [Mass/Vol] 7.2 g/dL Normal 6.3-8.0 [facility] Comment on above: Performed By: #### B 2M, HREMOP, STREV, SERMPA, SEPG ####[facility], [place] [phone] SPE Staff Review Reviewed by Dasia Kessler MD ([id number]) [facility] Comment on above: Performed By: #### B 2M, HREMOP, STREV, SERMPA, SEPG ####[facility]ClevelOw[address] Cross [address], [place] [phone] OCT MACULA CIRRUS OU (BOTH E YES) [facility] Vital Signs Date Time Vital Sign Value Performing Clinician Faci lity 12-30-2024 07:14-0400 Body mass index (BMI) [Ratio] 41.6 kg/m2 Dr. Fatoumata Red MD Work Phone: [facility] 12-30-2024 07:14-0400 Body weight 120.[address] Fatoumata Red MD Work Phone: [facility] 12-30-2024 07:14-0400 Diastolic blood pressure 82 mm[Hg] Dr. Fatoumata Red MD Work Phone: [facility] 12-30-2024 07:14-0400 Heart rate 64 /min Dr. Fatoumata Red MD Work Phone: [facility] 12-30-2024 07:14-0400 Respiratory rate 18 /min Dr. Fatoumata Red MD Work Phone: [facility] 12-30-2024 07:14-0400 SaO2% (BldA) [Mass fraction] 96 % Dr. Fatoumata Red MD Work Phone: [facility] 12-30-2024 07:14-0400 Systolic blood pressure 154 mm[Hg] Dr. Fatoumata Red MD Work Phone: [facility] 03-14-2023 08:08-0500 Body height 170.[address] Fatoumata Red Work Phone: [facility] 03-14-2023 08:08-0500 Body weight 111.[address] Fatoumata Red Work Phone: [facility] 03-13-2023 11:44-0500 Body mass index (BMI) [Ratio] 38.5 kg/m2 Dr. Fatoumata Red Work Phone: [facility] 01-19-2023 11:05-0400 Body height 170.[address] Fatoumata Red Work Phone: [facility] 01-19-2023 11:05-0400 Body mass index (BMI) [Ratio] 38.5 kg/m2 Dr. Fatoumata Red Work Phone: [facility] 01-19-2023 11:05-0400 Body weight 111.[address] Fatoumata Red Work Phone: [facility] 01-19-2023 11:05-0400 Diastolic blood pressure 74 mm[Hg] Dr. Fatoumata Red Work Phone: [facility] 01-19-2023 11:05-0400 Heart rate 58 /min Dr. Fatoumata Red Work Phone: [facility] 01-19-2023 11:05-0400 Respiratory rate 18 /min Dr. Fatoumata Red Work Phone: [facility] 01-19-2023 11:05-0400 SaO2% (BldA) [Mass fraction] 95 % Dr. Fatoumata Red Work Phone: [facility] 01-19-2023 11:05-0400 Systolic blood pressure 129 mm[Hg] Dr. Fatoumata Red Work Phone: [facility] 07-14-2021 09:15-0400 Body temperature 97.2 [degF] Jp Molinai DO Work Phone: [facility] 07-14-2021 09:15-0400 Body weight 117.48 kg Jp Masci DO Work Phone: [facility] 07-14-2021 09:15-0400 Diastolic blood pressure 61 mm[Hg] Jp Molinai DO Work Phone: [facility] 07-14-2021 09:15-0400 Heart rate 65 /min Jp Molinai DO Work Phone: [facility] 07-14-2021 09:15-0400 SaO2% (BldA) [Mass fraction] 96 % Jp Denis DO Work Phone: [facility] 07-14-2021 09:15-0400 Systolic blood pressure 125 mm[Hg] Jp Denis DO Work Phone: [facility] 06-23-2021 10:49-0400 Diastolic blood pressure 51 mm[Hg] [facility] Work Phone: 06-23-2021 10:49-0400 Heart rate 59 /min [facility] Work Phone: 06-23-2021 10:49-0400 Respiratory rate 18 /min [facility] Work Phone: 06-23-2021 10:49-0400 SaO2% (BldA) [Mass fraction] 97 % [facility] Work Phone: 06-23-2021 10:49-0400 Systolic blood pressure 124 mm[Hg] [facility] Work Phone: 06-23-2021 08:07-0400 Body height 170.18 cm [facility] Work Phone: 06-23-2021 08:07-0400 Body mass index (BMI) [Ratio] 41.6 kg/m2 [facility] Work Phone: 06-23-2021 08:07-0400 Body temperature 98 [degF] [facility] Work Phone: 06-23-2021 08:07-0400 Body weight 120.65 kg [facility] Work Phone: Encounters Encounter Date Encounter Type Care Provider Facility Start: 02-05-2025 ambulatory [facility] Facility: [facility] Start: 02-03-2025 ambulatory [facility] Facility: [facility] Start: 01-30-2025 ambulatory [facility] Facility: [facility] Start: 01-24-2025 ambulatory [facility] Facility: [facility] Start: 01-21-2025 ambulatory Monse North ASSIGNMENT OFFICER Facili ty:[facility] Start: 01-17-2025 ambulatory Delon Alfonso [facility] Start: 12-30-2024 End: 12-30-2024 Patient encounter procedure Monse North ASSIGNMENT OFFICER-C -[facility] Work Phone: Start: 12-30-2024 End: 12-30-[address] Fatoumata Red MD Work Phone: -[facility] Start: 12-30-2024 End: 12-30-2024 ambulatory Monse North ASSIGNMENT OFFICER Facility:[facility] Start: 12-23-2024 ambulatory Delon Alfonso Facility:[facility] Start: 12-23-2024 Non-patient / Non-visit Dr. Delon pandey MD -[facility] Start: 12-23-2024 End: 12-23-[address] Fatoumata Red MD Work Phone: -Cardiovascular Services Start: 12-23-2024 End: 12-23-[address] Fatoumata Red MD -[facility] Services Work Phone: Start: 12-23-2024 End: 12-23-2024 ambulatory Fatoumata Red Facility:[facility] Start: 11-28-2024 End: 11-28-[address] Fatoumata Red MD Work Phone: -Laboratory Start: 11-28-2024 End: 11-28-[address] Fatoumata Red MD -Laboratory Work Phone: Start: 11-28-2024 End: 11-28-2024 ambulatory Fatoumata Red Facility:[facility] Start: 06-19-2024 End: 06-19-2024 ambulatory Warren Ireland Facility:[facility] Start: 03-14-2023 End: 03-14-2023 Admission to same day surgery center Dr. Fatoumata Red Work Phone: [facility]oor[facility]/Special Procedures Work Phone: Start: 03-14-2023 End: 03-14-[address] Fatoumata Red Work Phone: [facility] Work Phone: Start: 02-20-2023 Non-patient / Non-visit Dr. Dario Red Work Phone: [facility] Work Phone: Start: 02-19-2023 Non-patient / Non-visit Dr. Dario Red Work Phone: [facility] Start: 02-15-2023 End: 02-15-[address] Fatoumata Red Work Phone: [facility] Work Phone: Start: 02-15-2023 End: 02-15-[address] [facility] Start: 02-15-2023 Non-patient / Non-visit Dr. Dario Red Work Phone: [facility] Start: 02-01-2023 End: 02-01-[address] Fatoumata Red Work Phone: [facility] Work Phone: Start: 02-01-2023 End: 02-01-[address] Fatoumata Red Work Phone: [facility] Work Phone: Start: 01-27-2023 End: 01-27-[address] Fatoumata Red Work Phone[facility] Work Phone: Start: 01-19-2023 End: 01-19-[address] Fatoumata Red Work Phone: [facility] Work Phone: Start: 01-13-2023 End: 01-13-2023 ambulatory [facility] Work Phone: Start: 01-13-2023 End: 01-13-2023 Patient encounter procedure [facility] Work Phone: Start: 09-18-2021 End: 09-18-2021 Patient encounter procedure Elio Bach MD Work Phone: Ophthalmology Comment on above: Type 2 diabetes bety itus without retinopathy (HCC) (Primary Dx); Pseudophakia of both eyes; Hx of LASIK; Essential hypertension; Hypercholesteremia Start: 09-10-2021 End: 09-10-2021 Patient encounter procedure [facility]-Laboratory, Phy Office 3rd Flr Start: 09-02-2021 End: 09-02-2021 Patient encounter procedure [facility], Specimen Start: 09-01-2021 Telephone encounter Jp cannon DO Work Phone: Hematology/Oncology Comment on above: Information Start: 07-19-2021 Telephone encounter Jp cannon DO Work Phone: Hematology/Oncology Comment on above: Results Start: 07-15-2021 End: 07-15-2021 Patient encounter procedure [facility] Start: 07-14-2021 Telephone encounter Jp cannon DO Work Phone: Hematology/Oncology Comment on above: Orders Results Start: 07-14-2021 End: 07-14-2021 ambulatory Jp Denis DO Work Phone: Hematology/Oncology Comment on above: Smoldering myeloma ( Primary Dx) Start: 07-14-2021 End: 07-14-2021 Patient encounter procedure Jp Dneis DO Work Phone: [facility] Start: 06-23-2021 End: 06-23-2021 Patient encounter procedure [facility], [facility] Start: 06-10-2021 End: 06-10-2021 Subsequent hospital visit by physician [facility] Francesca ([facility]) Work Phone: Radiology [facility] [place] Comment on above: Multiple myeloma not having achieved remission (HCC) [C90.00] Procedures Date Procedure Procedure Detail Performing Clinician Start: 12-23-2024 Cardiovascular stress test using pharmacologic stress agent Dr. Fatoumata Red MD Work Phone: Start: 03-06-2023 Plain chest X-ray Dr. Fatoumata [...] Author Start: 07-14-2024 DIABETES SCREEN DIABETES SCREEN [facility] Start: 07-14-2024 Diabetes Screening Diabetes Screening [facility] Start: 03-14-2023 Patient discharge [facility] Start: 12-09-2022 Covid-19 Vaccine ( season) Covid-19 Vaccine () [facility] Start: 12-09-2022 Influenza vaccination Influenza Vaccine (#1) [facility] Start: 07-14-2022 Adult depression screening assessment DEPRESSION SCREENING [facility] Start: 04-10-2022 Advance Directive Discussion Advance Directive Discussion [facility] Start: 04-10-2022 Depression Assessment Depression Assessment [facility] Start: 12-09-2021 Influenza vaccination INFLUENZA (Season Ended) [facility] Start: 06-23-2021 Diagnostic bone marrow biopsies & aspirations DX BONE MARROW BX & ASPIR [facility] Work Phone: Start: 05-13-2021 COVID-19 VACCINE (3 - Booster for [place] series) COVID-19 VACCINE (3 - Booster for [place] series) [facility] Start: 04-10-2021 ADVANCE DIRECTIVE DISCUSSION ADVANCE DIRECTIVE DISCUSSION [facility] Start: 2018 PNEUMOVAX AGE 65 AND OVER WITH 5YR LOOKBACK (#1) PNEUMOVAX AGE 65 AND OVER WITH 5YR LOOKBACK (#1) [facility] Start: 08-06-2016 Colonoscopy COLONOSCOPY [facility] Start: 08-06-2016 COLORECTAL CANCER SCREENING COLORECTAL CANCER SCREENING [facility] Start: 05-21-2014 Pneumococcal Vaccine: 65+ (2 - PCV) Pneumococcal Vaccine: 65+ (2 - PCV) [facility] Start: 2013 RSV Vaccine (1 - 1-dose 60+ series) RSV Vaccine (1 - 1-dose 60+ series) [facility] Start: 09-27-2009 Lipid 1996 panel - Serum or Plasma Lipid Screening [facility] Start: 09-27-2009 LIPID SCREEN LIPID SCREEN [facility] Start: 07-13-2009 PROSTATE CANCER SCREENING DISCUSSION PROSTATE CANCER SCREENING DISCUSSION [facility] Start: 2008 Influenza vaccination LUNG CANCER SCREENING [facility] Start: 2003 Influenza vaccination LUNG CANCER SCREENING [facility] Start: 2003 SHINGRIX VACCINE (1 of 2) SHINGRIX VACCINE (1 of 2) [facility] Start: 1998 COLOGUARD (FIT-DNA) COLOGUARD (FIT-DNA) [facility] Start: [address] COLONOGRAPHY [facility] Start: 1998 FECAL OCCULT BLOOD FECAL OCCULT BLOOD [facility] Start: 1998 SIGMOIDOSCOPY SIGMOIDOSCOPY [facility] Start: 1972 SHINGRIX VACCINE (1 of 2) SHINGRIX VACCINE (1 of 2) [facility] Start: 1972 Urine microalbumin profile [facility] Start: 1959 PNEUMOCOCCAL: 65+ (1 - PCV) PNEUMOCOCCAL: 65+ (1 - PCV) [facility] Start: 1953 ABDOMINAL AORTIC ANEURYSM SCREENING ABDOMINAL AORTIC ANEURYSM SCREENING [facility] CBC W Auto Different ial panel - Blood CBC + DIFF Lab STAT Multiple myeloma not having achieved remission (HCC) 07/14/2021 9:03 AM EDT [facility] Work Phone: CBC W Ordered Manual Differential panel - Blood PATHOLOGIST INTERPRETATION WITH CBC AND DIFF Lab Routine Smoldering myeloma 07/15/2021 10:27 AM EDT [facility] Work Phone: NM Heart Views W str ess and W radionuclide IV [facility] Patient Education Bone Marrow As piration and Biopsy Procedural Sedation Bone Marrow Biopsy [facility] Work Phone: Patient referral [facility] Work Phone: [facility] Immunizations Immunization Date Immunization Notes Care Provider Fa cility 05-21-2013 Pneumococcal Vaccine [facility] Work Phone: 05-21-2013 pneumococcal vaccine , unspecified formulation [facility] 12-09-2012 Influenza virus vaccine [facility] 12-09-2012 influenza virus vaccine, unspecified formulation Ct ([facility]) Work Phone: [facility] Payers Date Payer Category Payer Unknown [id number] 2024 Self-pay [id number] 2024 Private Health Insurance [id number] 2021 Unknown ANTHEM BLUE CROS S AND BLUE SHIELD ANTHEM MEDIBLUE O [id number] 2021-Present [phone] [address] [place] [address] [facility] [id number] 2021 Unknown ANTHEM BLUE CROS S AND BLUE SHIELD ANTHEM MEDIBLUE HMO [id number] 2021-Present [phone] [address] [place] [address] HMO [id number] 2013 Unknown [id number] Medicare [id number] Private Health Insurance [facility] [id number] Unknown [id number] Unknown [id number] Unknown [id number] 62 Unknown [id number] 62 Unknown [id number] 62 Unknown [id number] 62 Unknown [id number] 62 Unknown [id number] 62 Unknown [id number] 62 Unknown [id number] 62 Unknown [id number] [id number] 62 Unknown [id number] [id number] 62 Unknown [id number] [id number] 62 Unknown [id number] 62 Unknown [id number] 62 Social History Date Type Detail Facility Start: 06-23-2021 End: 03-14-2023 Tobacco smoking status VTIS Unknown if ever smoked [facility] Start: 12-26-2014 None [facility] Start: 12-26-2014 Spouse/ Signif icant Other [facility] Start: 12-26-2014 Non-smoker [facility] Start: 1955 Sex Assigned At Male [facility] Start: 07-17-2013 End: 08-03-2023 Tobacco smoking status VTIS Ex-smoker [facility] Work Phone: End: 04-10-2009 History of tobacco use Current smoker [facility] Work Phone: End: 04-10-2009 History of tobacco use Cigarette Smoker [facility] Work Phone: Start: 07-17-2013 End: 05-24-2021 Cigarettes smoked current (pack per day) - Reported 2 [facility] Start: 07-17-2013 End: 05-24-2021 Tobacco use and exposure Smokeless tobacco non-user [facility] Work Phone: Start: 05-24-2021 End: 07-14-2021 Alcohol intake Current non-drinker of alcohol (finding) [facility] Start: 1955 Sex Assigned At Not on file [facility] Start: 05-01-2021 End: 09-18-2021 Exposure to SARS-CoV-2 (event) Not sure [facility] Start: 05-24-2021 Tobacco use panel [facility] Medical Equipment Procedure Code Equipment Code Equipment Origin al Text Equipment Identifier Dates ([id number]) Knee arthroplast y wedge ()[id number] FDA Start: 08-30-2023 Orthopaedic ceme nt, antimicrobial ()[id number] FDA Start: 08-30-2023 Tibial insert ()[id number] FDA Start: 08-30-2023 Knee arthroplast y wedge ()[id number] [id number] FDA Start: 08-30-2023 ([id number]) Knee arthroplast y wedge ()[id number] [id number] FDA Start: 08-30-2023 ([id number]) Uncoated knee ti jf prosthesis, metallic ()[id number] [id number] FDA Start: 08-30-2023 Uncoated knee fe mur prosthesis, metallic ()[id number] [id number] FDA Start: 08-30-2023 ([id number]) Knee femur stem prosthesis ()[id number] FDA Start: 08-30-2023 ([id number]) Knee femur stem prosthesis ()[id number] [id number] FDA Start: 08-30-2023 ([id number]) Polymer orthopae dic cement restrictor, non-bioabsorbable, sterile ()[id number] [id number] FDA Start: 08-30-2023 ([id number]) Polymer orthopae dic cement restrictor, non-bioabsorbable, sterile ()[id number] [id number])[id number] FDA Start: 08-30-2023 Mental Status Date Assessment Result Facility 06-23-2021 Cognitive function Voice/Name [facility] Work Phone: 06-23-2021 Cognitive function Level Of Cons ciousness Appropriate;Follows Commands;Drowsy;Responds to vocal stimuli [facility] Work Phone: Clinical Notes 02-08-2011 to 12-30-2024 Note Date & Type Note Facility 12-30-2024 Evaluation note Diagnosis Onset Date Resolution DEL VALLE (dyspnea on exertion) acute December 30, 2024 1:49pm Fatigue acute December 1:49pm History of pulmonary embolism acute December 30, 2024 1:49pm Atherosclerotic heart disease of [place] coronary artery without angina pectoris chronic December 30, 2024 1:49pm Benign essential HTN chronic Dec 1:49pm HLD (hyperlipidemia) chronic Dec 1:49pm [facility] Work Phone: 1(439) 387-378309-22-2025 Progress [facility] [address] [place], [place] [address] OFFICE VISIT Date of Service: 12/30/24 MR#: [id number] Acct: [id number] Name: SHELBI GARCIA Rep #: [id number] : 1955 Provider: [facility] Age/Sex: 69/M Location: [facility] Status: Signed HPI HPI History of Present Illness Details: This is a 69-year-old male who presents today for cardiovascular follow-up visit. Patient carries a history of known coronary disease status post remote stenting of the lateral circumflex mid right coronary artery and proximal LAD approximately 15 years ago. This was prompted by asudden onset of chest pain in the mid retrosternal area. He was seated fixing to smoke a cigarette when itoccurred. He has not smoked since that day and he has not had any recurrence ofthat exact pain. He did undergo a repeat heart catheterization March 2023 which showed all the stents to be widely patent and he was continued on medical therapy. This was after he had mild apical ischemia on the stress test. It turned out to be a false positive test. Patient also has a history of hypertension his blood pressure normally runs 118?120/70 in his home environment. He also has a history of hyperlipidemia lastlipids January 2024 were excellent with a total cholesterol 110, HDL 39, LDL 50,and triglycerides 106. He is on intensive statin therapy with rosuvastatin 40 mg daily. The patient also has a history of DVTs and PEs. He states he is not on any oralanticoagulation. From a cardiac standpoint, the patient is doing well. He denies any palpitations, chest pain, pressure or heaviness. He does acknowledge SOB with exertion and at rest. He denies Orthopnea, and PND. He does not have bleeding issues; no blood in urine, stool, or nosebleeds. He does acknowledge fatigue. Hedoes acknowledge myalgias and weakness in his lower legs. He does have neuropathy. He denies claudication. He does acknowledge BLE edema. He does not have sudden weight gain. He denies lightheadedness, dizziness, syncopal or near syncopal episodes, and headaches. Intake Vital Signs 06/19/24 13:44 12/30/24 07:14 Height 5 ft 7 in 5 ft 7 in Weight: 266 lb BMI 41.6 BP 154/82 H Blood Pressure Location Lt brachial Position Sitting Respiration 18 Pulse 64 Pulse Source Monitor Pulse Oximetry (%) 96 Intake Visit Reasons: 6 M FU Shipper Required: No Is patient in pain?: No Allergies diphenhydramine HCl (From Benadryl) Allergy (Verified 12/30/24 14:21) Hives Medications ?Medication ?Instructions ?Recorded ?Confirmed ?Type escitalopram oxalate 20 mg tablet 20 mg PO DAILY ANTID EPRESSANT 01/31/13 12/30/24 History rosuvastatin 40 mg tablet 40 mg PO DAILY CHOLESTEROL 1 12/30/24 History vitamin B complex 1 ea PO DAILY SUPPLEMENT 12/30/24 History clopidogrel 75 mg tablet 75 mg PO DAILY BLOOD THINNER ##30 05/22/13 12/30/24 Rx amlodipine 10 mg tablet 10 mg PO DAILY BP 06/16/20 0 12/30/24 History cyanocobalamin (vitamin B-12) 500 500 mcg PO DAILY SUP PLEMENT 06/16/20 12/30/24 History mcg tablet furosemide 40 mg tablet 40 mg PO DAILY WATER PILL 12/30/24 History losartan 50 mg tablet 50 mg PO DAILY BP 06/16/20 0 12/30/24 History metformin 1,000 mg tablet 1,000 mg PO BID DIABETES 12/2912/30/24 History metoprolol succinate 50 mg 50 mg PO DAILY BP 06/16/20 12/30/24 History tablet,extended release 24 hr albuterol sulfate 90 mcg/actuation 1 - 2 puff inhalati on Q4H PRN PRN 12/16/20 12/30/24 Rx aerosol inhaler (Ventolin HFA) Wheezing or cough #1 in h empagliflozin 10 mg tablet 10 mg PO MOWEFR DIABETES 12/30/24 History (Jardiance) aspirin 81 mg tablet,delayed 81 mg PO DAILY check with primary 08/30/23 12/30/24 History release (Adult Aspirin Regimen) famotidine 20 mg tablet 20 mg PO DAILY #28 tabs 08/0912/30/24 Rx acetaminophen 500 mg tablet 1,000 mg PO DAILY 10/13/23 12/30/24 History cholecalciferol (vitamin D3) 50 50 mcg PO QDAY 5 12/30/24 History mcg (2,000 unit) capsule gabapentin 400 mg capsule 800 mg PO TID NEUROPATHY 04/0312/30/24 History Have you fallen in the past year?: No Nurse's Note: per patient, no changes in medications PFSH Medical History Wears glasses Anxiety Depression [...] embolism Presence of stent in coronary artery (~02/09/11) Atherosclerotic heart disease of [place] coronary artery without angina pectoris Abnormal laboratory test Medical management DVT (deep venous thrombosis) Tobacco dependence in remission HLD (hyperlipidemia) CAD (coronary artery disease) Benign essential HTN Surgical History Hx of arthroscopic knee surgery Hx of tonsillectomy IVC filter removal History of left heart catheterization (LHC) (~03/14/23) Hx of LASIK History of bilateral cataract extraction History of bilateral knee replacement (08/30/23) Presence of coronary angioplasty implant and graft (~02/09/11) Family History Other CVA (cerebral vascular accident) Heart disease Hypertension Myocardial infarction Social History Smoking Status: Former smoker how long ago did patient quit smokin years ago alcohol intake: never substance use type: does not use caffeine: Yes Type: coffee Number of servings: 4 ROS Const Const: Positive for fatigue; Negative for weakness, headache(s) or frequent falls Eyes Eyes: Negative for blurry vision ENT ENT: Negative for headache(s), dizziness or Nosebleed/epistaxis Cardio Chest Pain: No Palpitations: No Edema: Bilateral Muscle aches with walking: None Resp Respiratory: Positive for SOB with activity and SOB at rest; Negative for SOB orthopnea\SOB lying down GI GI: Negative nausea, vomiting, heartburn, bright, red blood in stools or black,tarry stools : Negative for hematuria Musc Musc: Positive for muscle aches/ myalgia Neuro Neuro: Negative for dizziness, lightheadedness, near syncope, syncope, frequent falls, headache(s),weakness or blurry vision Endo Endo: Positive for fatigue Cardiology Exam Const Appearance: cooperative, comfortable and no acute distress Nutritional Appearance: obese Orientation: alert and oriented x3 Head Head: normal to inspection Ears: hearing grossly normal bilaterally Nose: external nose normal Face and Sinus: face symmetric Eyes General: appearance normal, both eyes and all related structures Eyelids: eyelids normal Conjunctivae: conjunctivae normal Pupils: PERRL and pupil size EOM: EOM intact bilaterally Neck Neck: normal visual inspection Carotids: Negative bruit Chest Chest inspection: normal inspection of the chest Auscultation: Bilateral: Clear to Auscultation Cardio Palpation: normal PMI Rate: regular rate Rhythm: regular rhythm Heart sounds: S1 normal and S2 normal; Negative rub, gallop or murmur GI GI: obese Neuro General: patient alert and patient oriented x3 Skin Skin: no rashes or lesions noted Extremities Pulses: Normal: Right Posterior Tibial Pulse, Left Posterior Tibial Pulse, RightRadial Pulse and Left Radial Pulse Lower Extremity Edema: Trace: Bilateral Psych Psychological: normal affect Supplemental Info Supplemental Information Chest CTA 11/07/2023 IMPRESSION: No evidence of pulmonary embolism. Small gallstones. 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 Cardiac Catheterization 03/14/2023 CONCLUSIONS Stent to Prox LCX patent Stent to Mid RCA 30%; Stent to RPLV patent; 50% ostial RPDA Stent to Prox LAD patent; Mid LAD 50%; Ostial D1 30% RECOMMENDATIONS Medical therapy CORONARY ANGIOGRAPHY DOMINANCE: Right Dominant LEFT HEART ASSESSMENT LVEDP: 31 mmHg LEFT ANTERIOR DESCENDING ARTERY: LAD: In-Stent Restenosis 10% Proximal lesion in LAD Luminal Irregularities 50% Mid lesion in LAD DIAGONAL 1: Tubular 30% Ostial lesion in 1st Diagonal RIGHT CORONARY ARTERY: RCA: In-Stent Restenosis 30% Mid lesion in RCA, STENT to 30% Tubular 40% Distal lesion in RCA RT PDA: Tubular 50% Ostial lesion in RT PDA Stress Test Report 12/23/2024 Impression: 1. Pharmacologic (Regadenoson) evaluation 2. Peak pharmacologic ECG with no ischemic changes. 3. There were no cardiac dysrhythmias pretest, during pharmacologic infusion, or recovery. 5. Rest and stress SPECT Cardiolite nuclear imaging demonstrate relative uniform tracer uptake and myocardial perfusion appearing within normal limits. 6. The gated Cardiolite study reports an LVEF of 67%. Carotid Duplex Ultrasound 01/05/2022 Interpretation Summary Mild (<50%) stenosis right extracranial internal carotid. Mild (<50%) stenosis left extracranial internal carotid. Patent and antegrade vertebrals bilaterally. Labs: LDL Cholesterol, (0-130) 50 mg/dL HDL Cholesterol, (40-) 39 mg/dL L Cholesterol, (200) 110 mg/dL Triglycerides, (-199) 106 mg/dL Diagnostics: Electrocardiogram Stress Test Stress Test Nuclear Medicine Cardiac Catheterization Chest X-Ray Chest CTA Carotid Duplex Past Visits: Cardiology Visit Today Assessment and Plan Assessment and Plan (1) Atherosclerotic heart disease of [place] coronary artery without angina pectoris: Status: Chronic Qualifiers: [place] vs. transplanted heart: [place] heart Qualified Code(s): I25.10 - Atherosclerotic heart disease of [place] coronary artery without angina pectoris Plan: Patient has a history of coronary artery disease. His cardiac catheterization from 03/2023 demonstrated patent stents. His most recent stress test from 12/23/2024 was negative for ischemia. This was reviewed with patient. He will continue rosuvastatin 40 mg daily, and Plavix 75 mg daily. He denies any recurrence of his anginal symptoms. He will continue with aggressive risk factor and lifestyle modifications, as well as monitoring for any concerning symptoms. (2) History of pulmonary embolism: Status: Acute Plan: Patient carries a history of recurrent DVTs and pulmonary emboli. He is currently not on any anticoagulant therapy. (3) HLD (hyperlipidemia): Status: Chronic Qualifiers: Hyperlipidemia type: unspecified Qualified Code(s): E78.5 - Hyperlipidemia, unspecified Plan: Patient has a history of hyperlipidemia. His most recent lipid panel from 01/18/2024: Cholesterol 110, HDL 39, LDL 50, triglycerides 106. He will continue rosuvastatin 40 mg daily, along with aggressive risk factor and lifestyle modifications. (4) Benign essential HTN: Status: Chronic Plan: Patient has a history of hypertension. His blood pressure is mildly elevated inthe office today?154/82. He states his blood pressures average 127-130 systolically at home. At this time, he will continue amlodipine 10 mg daily, furosemide 40 mg daily, losartan 50 mg daily, metoprolol 50mg daily. He will continue to monitor his blood pressures at home, and notify our office of any persistently elevated or low blood pressure readings. Patient should continue his metoprolol losartan furosemide and amlodipine. (5) Fatigue: Status: Acute Plan: Patient knowledges fatigue. Would like to obtain lab work to further assess this. Depending on results, further recommendations will be made. (6) DEL VALLE (dyspnea on exertion): Status: Acute Plan: Patient acknowledges dyspnea on exertion. Would like to obtain an echocardiogram to assess his leftventricular systolic function, and lab work tofurther assess for any fluid overload. Depending on results, further recommendations will be made. Orders: Orders Echo Complete Today R06.02 - Shortness of breath Basic Metabolic Profile (BMP) Today R06.09 - Other forms of dyspnea CBC W/Diff, Automated Today R06.02 - Shortness of breath Pro- Brain NATRIURETIC PEPTIDE Today R06.02 - Shortness of breath Thyroid Stim Hormone (TSH) Today R53.83 - Other fatigue Plan Details Additional Comments: Patient will follow-up in 6 months, or sooner if needed. Thank you for allowing me to participate in the care of your patient. Please donot hesitate to callif any issues arise. This note was generated using a voice recognition system and there may be incorrect words, spelling, or punctuation that were not noted when reviewing theoffice note prior to saving. Portions of this documentation were copied and pasted from previous office visitnotes to provide cohesive continuity of the history. The note has been reviewed,edited, and updated, as necessary. Follow Up: 6 Months (ASSIGNMENT OFFICER/PA) Coding Level of Care Code Off vis,est,level 4 Diagnoses Atherosclerosis of [place] coronary artery of [place] heart without angina pectoris I25.10 [place] vs. transplanted heart: [place] heart History of pulmonary embolism Z86.711 Hyperlipidemia, unspecified hyperlipidemia type E78.5 Hyperlipidemia type: unspecified Benign essential HTN I10 Fatigue R53.83 DEL VALLE (dyspnea on exertion) R06.09 Coding Level of Care Code Off vis,est,level 4 Diagnoses Atherosclerosis of [place] coronary artery of [place] heart without angina pectoris I25.10 [place] vs. transplanted heart: [place] heart History of pulmonary embolism Z86.711 Hyperlipidemia, unspecified hyperlipidemia type E78.5 Hyperlipidemia type: unspecified Benign essential HTN I10 Fatigue R53.83 [place] (dyspnea on exertion) R06.09 Clinical Quality Measures Falls Risk Screening/Assistive Devices Have you fallen in the past year?: No 12/30/24 1520 ASSIGNMENT OFFICER ASSIGNMENT OFFICER-C> Date _ Monse VERA Cosigner Signature: Date (if applicable) CC: Dr. Fatoumata Red MD ~ [id number] Progress note Author [facility] Note Date/Time December 30, 2024 2:30pm [facility] [address] [place], [place] [address]. [address] [place] [address] OFFICE VISIT Date of Service: 12/30/24 MR#: [id number] Acct: [id number] Name: RADHASHELBI BEV Rep #: [id number] : 1955 Provider: [facility] Age/Sex: 69/M Location: [facility] Status: Signed HPI HPI History of Present Illness Details: This is a 69-year-old male who presents today for cardiovascular follow-up visit. Patient carries a history of known coronary disease status post remote stenting of the lateral circumflex mid right coronary artery and proximal LAD approximately 15 years ago. This was prompted by a sudden onset of chest pain in the mid retrosternal area. He was seated fixing to smoke a cigarette when itoccurred. He has not smoked since that day and he has not had any recurrence ofthat exact pain. He did undergo a repeat heart catheterization March 2023 which showed all the stents to be widely patent and he was continued on medical therapy. This was after he had mild apical ischemia on the stress test. It turned out to be a false positive test. Patient also has a history of hypertension his blood pressure normally runs 118?120/70 in his home environment. He also has a history of hyperlipidemia lastlipids January 2024 were excellent with a total cholesterol 110, HDL 39, LDL 50,and triglycerides 106. He is on intensive statin therapy with rosuvastatin 40 mg daily. The patient also has a history of DVTs and PEs. He states he is not on any oralanticoagulation. From a cardiac standpoint, the patient is doing well. He denies any palpitations, chest pain, pressure or heaviness. He does acknowledge SOB with exertion and at rest. He denies Orthopnea, and PND. He does not have bleeding issues; no blood in urine, stool, or nosebleeds. He does acknowledge fatigue. Hedoes acknowledge myalgias and weakness in his lower legs. He does have neuropathy. He denies claudication. He does acknowledge BLE edema. He does not have sudden weight gain. He denies lightheadedness, dizziness, syncopal or near syncopal episodes, and headaches. Intake Vital Signs 06/19/24 13:44 12/30/24 07:14 Height 5 ft 7 in 5 ft 7 in Weight: 266 lb BMI 41.6 BP 154/82 H Blood Pressure Location Lt brachial Position Sitting Respiration 18 Pulse 64 Pulse Source Monitor Pulse Oximetry (%) 96 Intake Visit Reasons: 6 M FU Shipper Required: No Is patient in pain?: No Allergies diphenhydramine HCl (From Benadryl) Allergy (Verified 12/30/24 14:21) Hives Medications ?Medication ?Instructions ?Recorded ?Confirmed ?Type escitalopram oxalate 20 mg tablet 20 mg PO DAILY ANTID EPRESSANT 01/31/13 12/30/24 History rosuvastatin 40 mg tablet 40 mg PO DAILY CHOLESTEROL 1 12/30/24 History vitamin B complex 1 ea PO DAILY SUPPLEMENT 12/30/24 History clopidogrel 75 mg tablet 75 mg PO DAILY BLOOD THINNER ##30 05/22/13 12/30/24 Rx amlodipine 10 mg tablet 10 mg PO DAILY BP 06/16/20 0 12/30/24 History cyanocobalamin (vitamin B-12) 500 500 mcg PO DAILY SUP PLEMENT 06/16/20 12/30/24 History mcg tablet furosemide 40 mg tablet 40 mg PO DAILY WATER PILL 12/30/24 History losartan 50 mg tablet 50 mg PO DAILY BP 06/16/20 0 12/30/24 History metformin 1,000 mg tablet 1,000 mg PO BID DIABETES 12/2912/30/24 History metoprolol succinate 50 mg 50 mg PO DAILY BP 06/16/20 12/30/24 History tablet,extended release 24 hr albuterol sulfate 90 mcg/actuation 1 - 2 puff inhalati on Q4H PRN PRN 12/16/20 12/30/24 Rx aerosol inhaler (Ventolin HFA) Wheezing or cough #1 in h empagliflozin 10 mg tablet 10 mg PO MOWEFR DIABETES 12/30/24 History (Jardiance) aspirin 81 mg tablet,delayed 81 mg PO DAILY check with primary 08/30/23 12/30/24 History release (Adult Aspirin Regimen) famotidine 20 mg tablet 20 mg PO DAILY #28 tabs 08/0912/30/24 Rx acetaminophen 500 mg tablet 1,000 mg PO DAILY 10/13/23 12/30/24 History cholecalciferol (vitamin D3) 50 50 mcg PO QDAY 5 12/30/24 History mcg (2,000 unit) capsule gabapentin 400 mg capsule 800 mg PO TID NEUROPATHY 04/0312/30/24 History Have you fallen in the past year?: No Nurse's Note: per patient, no changes in medications PFSH Medical History Wears glasses Anxiety Depression [...] embolism Presence of stent in coronary artery (~02/09/11) Atherosclerotic heart disease of [place] coronary artery without angina pectoris Abnormal laboratory test Medical management DVT (deep venous thrombosis) Tobacco dependence in remission HLD (hyperlipidemia) CAD (coronary artery disease) Benign essential HTN Surgical History Hx of arthroscopic knee surgery Hx of tonsillectomy IVC filter removal History of left heart catheterization (LHC) (~03/14/23) Hx of LASIK History of bilateral cataract extraction History of bilateral knee replacement (08/30/23) Presence of coronary angioplasty implant and graft (~02/09/11) Family History Other CVA (cerebral vascular accident) Heart disease Hypertension Myocardial infarction Social History Smoking Status: Former smoker how long ago did patient quit smokin years ago alcohol intake: never substance use type: does not use caffeine: Yes Type: coffee Number of servings: 4 ROS Const Const: Positive for fatigue; Negative for weakness, headache(s) or frequent falls Eyes Eyes: Negative for blurry vision ENT ENT: Negative for headache(s), dizziness or Nosebleed/epistaxis Cardio Chest Pain: No Palpitations: No Edema: Bilateral Muscle aches with walking: None Resp Respiratory: Positive for SOB with activity and SOB at rest; Negative for SOB orthopnea\SOB lying down GI GI: Negative nausea, vomiting, heartburn, bright, red blood in stools or black,tarry stools : Negative for hematuria Musc Musc: Positive for muscle aches/ myalgia Neuro Neuro: Negative for dizziness, lightheadedness, near syncope, syncope, frequent falls, headache(s), weakness or blurry vision Endo Endo: Positive for fatigue Cardiology Exam Const Appearance: cooperative, comfortable and no acute distress Nutritional Appearance: obese Orientation: alert and oriented x3 Head Head: normal to inspection Ears: hearing grossly normal bilaterally Nose: external nose normal Face and Sinus: face symmetric Eyes General: appearance normal, both eyes and all related structures Eyelids: eyelids normal Conjunctivae: conjunctivae normal Pupils: PERRL and pupil size EOM: EOM intact bilaterally Neck Neck: normal visual inspection Carotids: Negative bruit Chest Chest inspection: normal inspection of the chest Auscultation: Bilateral: Clear to Auscultation Cardio Palpation: normal PMI Rate: regular rate Rhythm: regular rhythm Heart sounds: S1 normal and S2 normal; Negative rub, gallop or murmur GI GI: obese Neuro General: patient alert and patient oriented x3 Skin Skin: no rashes or lesions noted Extremities Pulses: Normal: Right Posterior Tibial Pulse, Left Posterior Tibial Pulse, RightRadial Pulse and Left Radial Pulse Lower Extremity Edema: Trace: Bilateral Psych Psychological: normal affect Supplemental Info Supplemental Information Chest CTA 11/07/2023 IMPRESSION: No evidence of pulmonary embolism. Small gallstones. 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 Cardiac Catheterization 03/14/2023 CONCLUSIONS Stent to Prox LCX patent Stent to Mid RCA 30%; Stent to RPLV patent; 50% ostial RPDA Stent to Prox LAD patent; Mid LAD 50%; Ostial D1 30% RECOMMENDATIONS Medical therapy CORONARY ANGIOGRAPHY DOMINANCE: Right Dominant LEFT HEART ASSESSMENT LVEDP: 31 mmHg LEFT ANTERIOR DESCENDING ARTERY: LAD: In-Stent Restenosis 10% Proximal lesion in LAD Luminal Irregularities 50% Mid lesion in LAD DIAGONAL 1: Tubular 30% Ostial lesion in 1st Diagonal RIGHT CORONARY ARTERY: RCA: In-Stent Restenosis 30% Mid lesion in RCA, STENT to 30% Tubular 40% Distal lesion in RCA RT PDA: Tubular 50% Ostial lesion in RT PDA Stress Test Report 12/23/2024 Impression: 1. Pharmacologic (Regadenoson) evaluation 2. Peak pharmacologic ECG with no ischemic changes. 3. There were no cardiac dysrhythmias pretest, during pharmacologic infusion, or recovery. 5. Rest and stress SPECT Cardiolite nuclear imaging demonstrate relative uniform tracer uptake and myocardial perfusion appearing within normal limits. 6. The gated Cardiolite study reports an LVEF of 67%. Carotid Duplex Ultrasound 01/05/2022 Interpretation Summary Mild (<50%) stenosis right extracranial internal carotid. Mild (<50%) stenosis left extracranial internal carotid. Patent and antegrade vertebrals bilaterally. Labs: LDL Cholesterol, (0-130) 50 mg/dL HDL Cholesterol, (40-) 39 mg/dL L Cholesterol, (200) 110 mg/dL Triglycerides, (-199) 106 mg/dL Diagnostics: Electrocardiogram Stress Test Stress Test Nuclear Medicine Cardiac Catheterization Chest X-Ray Chest CTA Carotid Duplex Past Visits: Cardiology Visit Today Assessment and Plan Assessment and Plan (1) Atherosclerotic heart disease of [place] coronary artery without angina pectoris: Status: Chronic Qualifiers: [place] vs. transplanted heart: [place] heart Qualified Code(s): I25.10 -Atherosclerotic heart disease of [place] coronary artery without angina pectoris Plan: Patient has a history of coronary artery disease. His cardiac catheterization from 03/2023 demonstrated patent stents. His most recent stress test from 12/23/2024 was negative for ischemia. This was reviewed with patient. He will continue rosuvastatin 40 mg daily, and Plavix 75 mg daily. He denies any recurrence of his anginal symptoms. He will continue with aggressive risk factor and lifestyle modifications, as well as monitoring for any concerning symptoms. (2) History of pulmonary embolism: Status: Acute Plan: Patient carries a history of recurrent DVTs and pulmonary emboli. He is currently not on any anticoagulant therapy. (3) HLD (hyperlipidemia): Status: Chronic Qualifiers: Hyperlipidemia type: unspecified Qualified Code(s): E78.5 - Hyperlipidemia, unspecified Plan: Patient has a history of hyperlipidemia. His most recent lipid panel from 01/18/2024: Cholesterol 110, HDL 39, LDL 50, triglycerides 106. He will continue rosuvastatin 40 mg daily, along with aggressive risk factor and lifestyle modifications. (4) Benign essential HTN: Status: Chronic Plan: Patient has a history of hypertension. His blood pressure is mildly elevated inthe office today?154/82. He states his blood pressures average 127-130 systolically at home. At this time, he will continue amlodipine 10 mg daily, furosemide 40 mg daily, losartan 50 mg daily, metoprolol 50mg daily. He will continue to monitor his blood pressures at home, and notify our office of any persistently elevated or low blood pressure readings. Patient should continue his metoprolol losartan furosemide and amlodipine. (5) Fatigue: Status: Acute Plan: Patient knowledges fatigue. Would like to obtain lab work to further assess this. Depending on results, further recommendations will be made. (6) [place] (dyspnea on exertion): Status: Acute Plan: Patient acknowledges dyspnea on exertion. Would like to obtain an echocardiogram to assess his left ventricular systolic function, and lab work tofurther assess for any fluid overload. Depending on results, further recommendations will be made. Orders: Orders Echo Complete Today R06.02 - Shortness of breath Basic Metabolic Profile (BMP) Today R06.09 - Other forms of dyspnea CBC W/Diff, Automated Today R06.02 - Shortness of breath Pro- Brain NATRIURETIC PEPTIDE Today R06.02 - Shortness of breath Thyroid Stim Hormone (TSH) Today R53.83 - Other fatigue Plan Details Additional Comments: Patient will follow-up in 6 months, or sooner if needed. Thank you for allowing me to participate in the care of your patient. Please donot hesitate to call if any issues arise. This note was generated using a voice recognition system and there may be incorrect words, spelling, or punctuation that were not noted when reviewing theoffice note prior to saving. Portions of this documentation were copied and pasted from previous office visitnotes to provide cohesive continuity of the history. The note has been reviewed,edited, and updated, as necessary. Follow Up: 6 Months (ASSIGNMENT OFFICER/PA) Coding Level of Care Code Off vis,est,level 4 Diagnoses Atherosclerosis of [place] coronary artery of [place] heart without angina pectoris I25.10 [place] vs. transplanted heart: [place] heart History of pulmonary embolism Z86.711 Hyperlipidemia, unspecified hyperlipidemia type E78.5 Hyperlipidemia type: unspecified Benign essential HTN I10 Fatigue R53.83 [place] (dyspnea on exertion) R06.09 Coding Level of Care Code Off vis,est,level 4 Diagnoses Atherosclerosis of [place] coronary artery of [place] heart without angina pectoris I25.10 [place] vs. transplanted heart: [place] heart History of pulmonary embolism Z86.711 Hyperlipidemia, unspecified hyperlipidemia type E78.5 Hyperlipidemia type: unspecified Benign essential HTN I10 Fatigue R53.83 [place] (dyspnea on exertion) R06.09 Clinical Quality Measures Falls Risk Screening/Assistive Devices Have you fallen in the past year?: No 12/30/24 1520 <Electronically signed by Monse North ASSIGNMENT OFFICER ASSIGNMENT OFFICER-C> Date _ Monse North ASSIGNMENT OFFICER ASSIGNMENT OFFICER-C Cosigner Signature: Date (if applicable) CC: Dr. Fatoumata Red MD ~ [employer] Work Phone: [phone]) 811-945406-11-2022 NoteHNO ID: [id number] Author: Elio Bach MD Service: ? Author [...] questions about the findings, diagnosis, and treatment options.[facility]06[facility]11[facility] Instructions* Patient Instructions * Elio Bach MD - 09/18/2021 9:06 AM EDT Start: Systane Complete solution instill 1 drop 3 times daily Both Eyes. Recommended patient see Dr. Sue Wilks for refraction and glasses. If you have any questions please contact our office at [phone]. After office hours or on the weekend, please call Dr. Bach on his cell phone at [phone]. documented in this encounterC[facility]06[facility] History of Present illness Narrative* Elio Bach MD - 09/18/2021 9:03 AM EDT ASSESSMENT/PLAN: 1. Type 2 diabetes mellitus without [...] findings as obtained by the ophthalmic technical staff.I have seen and examined Shelbi Garcia. I have discussed the examination findings, diagnosis, and treatment options with Shelbi Garcia and/or his family. I have also reviewed and agree with the assessment and plan as stated above and agree with all its relevant components. I gave the patient the opportunity to ask questions about the findings, diagnosis, and treatment options. documented in this encounterCherrington Hospital05-25-2022 Miscellaneous Notes* Telephone Encounter - Nancy Quezada LPN - 09/01/2021 10:29 AM EDT Last OV notes faxed as directed. Nancy Quezada LPN * Telephone Encounter - Sue Hannon - 09/01/2021 9:[address] Soler's office at [facility] called requesting the last office note from pts last visit with Dr. Denis on07/14/21. This was missing from the original fax they received. documented in this encounterCher[facility]04-11-2022 Miscellaneous Notes* Telephone Encounter - Ronel Rosen LPN - 07/19/2021 1:18 PM EDT Faxed as requested. Ronel Rosen LPN * Telephone Encounter - Jp Denis DO - 07/19/2021 1:00 PM EDT I spoke with the patient today about [...] lab work to Dr. 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 Jp Denis DO documented in this encounterCher[facility]04-07-2022 Miscellaneous Notes* Telephone Encounter - Nancy Quezada LPN - 07/15/2021 7:50 AM EDT Pt. Notified of results, will come in today for repeat CBC. Nancy Quezada LPN * Telephone Encounter - Jp Denis DO - 07/14/2021 6:57 PM EDT Please let him know that the CBC from today unexpectedly showed that all his blood counts were low.This may be laboratory error so ask him to have a repeat CBC on or Monday. Jp Denis DO documented in this encounterCherrington [facility]04-06-2022 NoteHNO ID: [id number] Author: Jp Denis DO Service: ? Author Type: Physician Type: Progress Notes Filed: 07/14/2021 9:42 AM Note Text: Oncologic problem(s): 1) IgA lambda smoldering myeloma. HPI: The patient is a 66 yo male with a PMH significant for type 2 diabetes, CAD ([place] x3-most recent 2010; each treated with PCI/stent--5 stents total--most recent 2010), atrial fibrillation, CKD, RA, DVT (IVC) and sensory neuropathy. 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 No petechiae. 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 No focal motor [...] Abs Lymph 1.00 - 4.00 k/uL 3.51 [place]% % 5.5 Abs [place] <0.87 k/uL 0.46 Eosin% % 3.3 Abs [...] 1.3 mg/dL 0.6 Alkal (more content not included)...[facility]04-06-[facility] History of Present illness Narrative* Jp Jake Denis, DO - 07/14/2021 9:10 AM EDT Oncologic problem(s): 1) IgA lambda smoldering myeloma. HPI: The patient is a 66 yo male with a PMH significant for type 2 diabetes, CAD ([place] x3-most [id number]; each treated with PCI/stent--5 stents total--most recent 2010), atrial fibrillation, CKD, RA,DVT (IVC) and sensory neuropathy. 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 Patient began experiencing shoulder and hand pain around August 2020. At the time his pain began he had fallen and landed on his right shoulder and pain became significant while doing physical therapy and then wo rsened to occur in his left shoulder as [...] endorsed he got in touch with his airplane woodworker office and was advised he could stop Coumadin. Hecontinues on aspirin and Plavix. Presents for ongoing oncologic management. Interim history: Returns today to review the results of the bone marrow biopsy. He offers no complaints. He has stable fingertip neuropathy and sensory neuropathy of the feet thathas been stable for quite some time. PMH, [...] No jaundice or rash. No petechiae. 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 No focal motor [...] Abs Lymph 1.00 - 4.00 k/uL 3.51 [place]% % 5.5 Abs [place] <0.87 k/uL 0.46 Eosin% % 3.3 Abs Eosin <0.46 k/uL 0.28 Baso% % 0.8 Abs Baso <0.11 k/uL 0.07 Nucleated Reds 0 /100 WBC 0.0 Absolute nRBC <0.01 k/uL <0.01 Diff Type Auto Diff Pathologist Interpretation, CBCDIF SEE COMMENT Pathologist (STFREV) The Pathologist Interpretation on this sample was [...] Staff Review Reviewed by Dasia Kessler MD ([id number]) MPA IgG, Serum 700 - 1,600 mg/dL 638 (L) MPA IgA, Serum 70 - 400 mg/dL 610 (H) MPA IgM, Serum 40 - 230 mg/dL 66 [place] Free, Serum 3.30 - 19.40 mg/L 14.2 Lambda Free, Serum 5.7 - 26.3 mg/L 61.1 (H) K/L Ratio, Serum 0.26 - 1.65 0.23 (L) MPA Result No M protein is identified. M protein is present. (A) Interpretation (MPA) SEE COMMENT Staff Review ([facility]) Reviewed by Dasia Kessler MD ([id number]) Component Latest Ref Rng & Units 05/30/2021 [...] ([id number]) Reviewed by Sirisha Wolfe MD, PhD. ([id number]) Result (UMPA) No M protein is identified. M protein is present. (A) Interpretation (UMPA) SEE COMMENT Staff Review (UMPA) Reviewed by Sirisha Wolfe MD, PhD. ([id number]) IMAGING: Whole-body CT 06/10/2021: RESULT: Please note [...] Mild-moderate atherosclerotic calcifications of the imaged aorta. Regulatory Submissions Associate (topogram) images: No additional findings. ASSESSMENT/PLAN: (D47.2) [...] bone lesions. -Bone marrow biopsy performed at [facility] demonstrates 11% plasma cells. -By definition, [...] therapy. He may be best served by observationgiven past serum Cr results rather than kidney biopsy but second opinion regarding this from cementer machine joiner is needed. Plan: -Referral to Dr. Flor [...] course, and prognosis of low risk of smolderingmyeloma and coordinating care. Jp Denis DO documented in this encounterCher[facility]04-06-2022 Miscellaneous Notes* Telephone Encounter - Jp Denis DO - 07/14/2021 8:49 AM EDT Orders filed. Jp Denis DO documented in this encounterCher[facility]03-08-2022 NoteHNO ID: [id number] Author: Jp Denis DO Service: ? Author Type: Physician Type: Progress Notes Filed: 06/16/2021 5:32 AM Note Text: Oncologic problem(s): 1) IgA lambda monoclonal gammopathy. HPI: The patient is a 66 yo male with a PMH significant for type 2 diabetes, CAD ([place] x3-most recent 2010; each treated with PCI/stent--5 stents total--most recent 2010), atrial fibrillation, CKD, RA, DVT (IVC) and sensory neuropathy. 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 No petechiae. 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 No focal motor [...] Abs Lymph 1.00 - 4.00 k/uL 3.51 [place]% % 5.5 Abs [place] <0.87 k/uL 0.46 Eosin% % 3.3 Abs [...] 40 U/L 16 Glu (more content not included)...[facility]03-03-2022 NoteHNO ID: [id number] Author: RT Camila(R) Service: ? Author Type: Healthcare Project Manager Type: Progress Notes Filed: 06/10/2021 2:03 [...] BY: RT Camila(R) June 10, 2021 2:[address] [facility]03-03-2022 History of Present illness Narrative* Montez Kendall RT(R) - 06/10/2021 2:15 PM EST Radiology Service Progress Note PATIENT NAME: Shelbi Garcia DATE OF SERVICE: June 10, 2021 TIME: 2:02 PM PATIENT IDENTITY VERIFICATION COMPLETED USING TWO (2) IDENTIFIERS: Name and Date of confirmedby patient verbally. FALL SCREENING: Has the patient [...] 10, 2021 2:02 PM documented in this encounterCher[facility]02-14-2022 NoteHNO ID: [id number] Author: Jp Denis, DO Service: ? Author [...] PMH significant for type 2 diabetes, CAD ([place] x3; each treated with PCI/stent--5 stents altogether), atrial fibrillation, CKD, RA and sensory neuropathy. 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 [...] No jaundice or rash. No petechiae. 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 Plan: Lab work t (more content not included)...[facility]11-01-2011 Evaluation note* Diagnosis Onset Date Resolution Status Benign essential HTN chronic HLD (hyperlipidemia) chronic Presence of stent in coronary artery February, [facility] Work Phone: Evaluation noteNo assessment information available [facility] Work Phone: Evaluation note* Diagnosis Multiple myeloma not having achieved remission (HCC)- Primary Multiple myeloma, without mention of having achieved remission documented in this encounter [facility] note* Diagnosis Smoldering myeloma- Primary Multiple myeloma, without mention of having achieved remission documented in this encounter [facility] note* Diagnosis Smoldering myeloma- Primary Multiple myeloma, without mention of having achieved remission documented in this encounter [facility] note* Diagnosis Type 2 diabetes mellitus without retinopathy (HCC)- Primary Type II or unspecified type diabetes mellitus without mention of complication, not stated as uncontrolled Pseudophakia of both eyes Lens replaced by other means Hx of LASIK Other states following surgery of eye and adnexa Essential hypertension Unspecified essential hypertension Hypercholesteremia Pure hypercholesterolemia documented in this encounter [facility] note* Diagnosis Multiple myeloma not having achieved remission (HCC) Multiple myeloma, without mention of having achieved remission documented in this encounter [facility] note* Diagnosis Onset Date Resolution Status Admit Date DEL VALLE (dyspnea on exertion) acute December 30, 2024 1:49pm Fatigue acute December 1:49pm History of pulmonary embolism acute December 30, 2024 1:49pm Atherosclerotic heart diseas e of [place] coronary artery without angina pectoris chronic Septembe r 2024 1:49pm Benign essential HTN chronic Sept ember 2024 1:49pm HLD (hyperlipidemia) chronic Dec [facility]2024 1:49pm [facility] Work Phone: Reason for referral (narrative)No reason for referral information availableWMedina Hospital Work Phone: Chief Complaint and Reason [...] of stent in coronary artery Chief Complaint Admit Date CHEST PAIN December 23, 2024 6:18am CHEST PAIN December 23, 2024 11:43am 6 M FU December 30, 2024 1:49pm Reason for Visit Admit Date DEL VALLE (dyspnea on exertion) December 1:49pm Fatigue December 30, 2024 1:49pm History of pulmonary embolism December 30, 2024 1:49pm Atherosclerotic heart diseas e of [place] coronary artery without angina pectoris December 30, 2024 1:49pm Benign essential HTN December 30 1:49pm HLD (hyperlipidemia) December 30 1:49pm Family History No Family History Records Found Relationship Condition Age at Onset Recorded Date/T gallito Not Specified Cardiac disease Unknown Myocardial infarction Unknown Hypertension Unknown Cerebrovascular accident (CVA) Unknown Advance Directives No Advanced Directives Records Found Advance Directive Response Recorded Date/ Time Advance Directives Yes December 11:37am Living Will Yes December 16 3:57pm Power of Corporate Compliance Director Yes December 16, 2020 3:57pm Advance Directive Response Recorded Date/ Time Advance Directives Yes December 10:37am Living Will Yes December 16 2:57pm Power of Corporate Compliance Director Yes December 16, 2020 2:57pm Advance Directive Response Recorded Date/ Time Advance Directives on File Yes Decem 2022 8:08am Name of Medical Power of Corporate Compliance Director ? unsure March 14, 2023 8:08am Advance Directives Yes March 14, 2023 8:08am Living Will Yes March 14 8:08am Power of Corporate Compliance Director Yes March 14, 2023 8:08am Advance Directive [...] Jp Denis, DO [address] [place] [address] [place] [id number] Referral ID Status Reason Start Date Expiration Date V isits Requested Visits Authorized [id number] Closed Auto-Generate d Referral 05/24/2021 06/23/2022 1 [...] or prosecute any alcohol or drug abuse patient.[facility] the event this information is protected by the Federal Confidentiality of Alcohol and Drug Abuse Patient Records regulations: The Federal rules restrict any use of the information to criminally investigate or prosecute any alcohol or drug abuse patient.[facility] the event this information is protected by the Federal Confidentiality of Alcohol and Drug Abuse Patient Records regulations: The Federal rules restrict any use of the information to criminally investigate or prosecute any alcohol or drug abuse patient.[facility] the event this information is protected by the Federal Confidentiality of Alcohol and Drug Abuse Patient Records regulations: The Federal rules restrict any use of the information to criminally investigate or prosecute any alcohol or drug abuse patient.[facility] the event this information is protected by the Federal Confidentiality of Alcohol and Drug Abuse Patient Records regulations: The Federal rules restrict any use of the information to criminally investigate or prosecute any alcohol or drug abuse patient.[facility] the event this information is protected by the Federal Confidentiality of Alcohol and Drug Abuse Patient Records regulations: The Federal rules restrict any use of the information to criminally investigate or prosecute any alcohol or drug abuse patient.[facility] the event this information is protected by the Federal Confidentiality of Alcohol and Drug Abuse Patient Records regulations: The Federal rules restrict any use of the information to criminally investigate or prosecute any alcohol or drug abuse patient.[facility] Reason for Visit (unrecogniz ed section and content) Reason Comments Orders Reason Comments Established Patient Reason Comments Results Reason Comments Information Reason Comments Blurry Vision Both Eyes Right eye worse than left Difficulty Reading Both Eyes Glare Tearing Both Eyes Diabetes Reason Comments Radiology CT Specialty Diagnoses / Procedures Referred By Jennifer duran Referred To Contact CT IMAGING Diagnoses Multiple myeloma not having achieved remission (HCC) Procedures CT WHOLE BODY SKULL TO KNEE WO IVCON UNLISTED COMPUTED TOMOGRAPHY PROCEDURE Jp Denis, DO [address] [place] [address] [place] [id number] Referral ID Status Reason Start Date Expiration Date V isits Requested Visits Authorized [id number] Closed Auto-Generate d Referral 05/24/2021 06/23/2022 1 1 Care Teams (unrecognized sec tion and content) Property Management Intern Relationship Specialty Start Date End Date Shannonsheryl Fatoumatamateo Torrez [address] [place] [address] PCP - General Family Practice 06/22/21 Dasai Helton Referring Rheumatology 05/17/21 Property Management Intern Relationship Specialty Start Date End Date IvettFatoumata samaniego [address] [address] PCP - General Family Practice 06/22/21 Dasia Helton Referring Rheumatology 05/17/21 Property Management Intern Relationship Specialty Start Date End Date Shannondanette Fatoumatamateo Torrez [address] [place] [address] PCP - General Family Practice 06/22/21 Dasia Helton Referring Rheumatology 05/17/21 Property Management Intern Relationship Specialty Start Date End Date Fatoumata Red [address] [place] [address] PCP - General Family Practice 06/22/21 Dasia [...] Dr. Jp Fried MD Active [place]onse [place] ASSIGNMENT OFFICER, ASSIGNMENT OFFICER-C Attending Provider Active Team Status: Inactive Member Role Status Dates Dr. Fatoumata Red MD Primary Care Provider Active Dr. Warren Olivarez DO Attending Provider Active Team Status: Inactive Member Role Status Dates Dr. Fatoumata Red MD Primary Care Provider Active Dr. Warren Olivarez DO Attending Provider, Referring Provider Active Property Management Intern Relationship Specialty Start Date End Date Mary Walton MD PCP - General Internal Medicine 07/05/13 06/21/21 Dasia Helton MD Referring Rheumatology 05/17/21 Team Status: Active Member Role Status Dates Dr. Fatoumata Red MD Primary Care Provider Active [place]onse [place] ASSIGNMENT OFFICER, ASSIGNMENT OFFICER-C Referring Provider, Other Provi jorge Active Dr. Marialuisa Salas MD Attending Provider Activ e Team Status: Active Member Role Status Dates Dr. Fatoumata Red MD Primary Care Provider Active [place] [place] ASSIGNMENT OFFICER, ASSIGNMENT OFFICER-C Attending Provider Active Team Status: Inactive Member Role Status Dates Dr. Fatoumata Red MD Primary Care Provider Active Monse [place] ASSIGNMENT OFFICER, ASSIGNMENT OFFICER-C Attending Provider, Referring P jamal Active Team Status: Active Member Role Status Dates Dr. Fatoumata Red MD Primary Care Provider Active Dr. Marialuisa Salas MD Attending Provider Activ [place] ASSIGNMENT OFFICER, ASSIGNMENT OFFICER-C Referring Provider Active Team Status: Inactive Member [...] November 28, 2024 End: November 28, 2024 Team Status: Active Member Role/Relationship Status Dates Dr. Fatoumata Red MD Primary care physician Active Team Status: Inactive Member Role/Relationship Status Dates Dr. Fatoumata Red MD Primary care physician Active Start: November 28, 2024 End: November 28, 2024 Dr. Fatoumata Red MD Attending physician Active Start: November 28, 2024 End: November 28, 2024 Dr. Fatoumata Red MD Referring Provider Active Start: November 28, 2024 End: November 28, 2024 Team Status: Inactive Member Role/Relationship Status Dates Dr. Fatoumata Red MD Primary care physician Active Start: December 23, 2024 End: December 23, 2024 Dr. Fatoumata Red MD Attending physician Active Start: December 23, 2024 End: December 23, 2024 Dr. Fatoumata Red MD Referring Provider Active Start: December 23, 2024 End: December 23, 2024 Team Status: Active Member Role/Relationship Status Dates Dr. Fatoumata Red MD Primary care physician Active Start: December 23, 2024 Dr. Fatoumata Red MD Referring Provider Active Start: December 23, 2024 Dr. Fatoumata Red MD Nurse Practitioner Active Start: December 23, 2024 Dr. Delon Hamilton MD Attending physician Active Start: December 23, 2024 Team Status: Inactive Member Role/Relationship Status Dates Dr. Fatoumata Red MD Primary care physician Active Start: December 30, 2024 End: December 30, 2024 Dr. Fatoumata Red MD Referring Provider Active Start: December 30, 2024 End: December 30, 2024 Monse [place] NP, ASSIGNMENT OFFICER-C Attending physician Active Start: December 30, 2024 End: December 30, 2024 Team Status: Inactive Member Role/Relationship Status Dates Dr. Fatoumata Red MD Primary care physician Active Start: December 30, 2024 End: December 30, 2024 Monse [place] NP ASSIGNMENT OFFICER-C Attending physician Active Start: December 30, 2024 End: December 30, 2024 Monse [place] NP, NP-C Referring Provider Active Start: December 30, 2024 End: December 30, 2024 (unrecognized sect ion and content) No Status Records FoundNo Status Records Found INFORMATION SOURCE (unrecogn ized section and content) DATE CREATED AUTHOR 09/18/2021 [facility] DATE CREATED AUTHOR AUTHOR'S ORGANIZ ATION 01/28/2025 [facility] FOR RECORDS PERTAINING TO PATIENTS WHO ARE [...] BE BASED ON THE PRIMARY CLINICAL RECORDS. [employer] provides no warranty or guarantee of the accuracy or completeness of information in this document.
--- OUTSIDE RECORDS SUMMARY | 2025-01-30 07:42 | XMS RPT_ITS | CCD ---
Author Organization [facility] Care Team Providers Care Java Jsf Developer Name Role Phone Dasia Helton Unavailable Fatoumata Red Primary Care Provider Dr. Fatoumata Red Primary Care Provider [phone] Dr. Fatoumata Red Referring Provider Can COPE, JAVASCRIPT APPLICATION DEVELOPER-C Monse Attending Provider Mary Walton MD Primary Care Provider Bossman TORIBIO, Dasia Unavailable Dr. Fatoumata Red Primary Care Provider [phone] Dr. Fatoumata Red Referring Provider Can COPE, JAVASCRIPT APPLICATION DEVELOPER-C Monse Attending Provider Can JAVASCRIPT APPLICATION DEVELOPER, JAVASCRIPT APPLICATION DEVELOPER-C Monse Referring Provider Can COPE, JAVASCRIPT APPLICATION DEVELOPER-C Monse Other Provider Dr. Marialuisa Salas Attending Provider Dr. Marialuisa Salas Attending Provider Can COPE, JAVASCRIPT APPLICATION DEVELOPER-C Monse Referring Provider Dr. Fatoumata Red MD Primary Care Provider Dr. Fatoumata Red MD Attending Provider [phone] Dr. Fatouamta Red MD Referring Provider Dr. Fatoumata Red MD Primary Care Physician Neda TORIBIO, Dr. Ham Attending Physician Neda TORIBIO, Dr. Ham Nurse Practitioner [phone] Alfonso TORIBIO, Dr. Jernigan Attending Physician Can JAVASCRIPT APPLICATION DEVELOPER-CMonse Attending Physician Can JAVASCRIPT APPLICATION DEVELOPER-C, Monse Referring Provider Miedel, Fatoumata Attending Unavailable Miedel, Fatoumata Primary Care Unavailable Miedel, Fatoumata Referring Unavailable Miedel, Fatoumata Attending Unavailable Miedel, Fatoumata Referring Unavailable Miedel, Fatoumata Primary Care Unavailable Can JAVASCRIPT APPLICATION DEVELOPER, Monse Attending Unavailable Can JAVASCRIPT APPLICATION DEVELOPERMonse Referring Unavailable Miedel, Fatoumata Primary Care Unavailable [...] diphenhydrAMINE; Translations: [diphenhydramine HCl] Drug Allergy 07-17-2013 [facility] Work Phone: (7 sources) buPROPion Drug Allergy 01-28-2005 [facility] Medications Current Medications Medication Drug Class(es) Dates Sig (Normalized) Sig (Original) acetaminophen 500 mg oral tablet (8 sources) Start: 10-13-2023 Start: 09-01-2023 End: 10-13-2023 Acetaminophen 500 mg Tablet Discontinued 1000 mg PO THREE TIMES A DAY 90 0 September 01, 2023 12:00am October 13, 2023 1:48pm Do not take more than 3000 mg Tylenol in a 24-hour period. [id number] 200 actuat albuter ol 0.09 mg/actuat metered [...] Weekly bmp, cbc, and esr. Fax to [phone]. Routine picc care per protocol. COMPOUNDED PRESCRIPTION [...] Comment on above: Take 1 capsule by [facility] once daily. Hydrocodone-Acetamino phen 1 EACH tablet [...] 2020 1:00am November 07, 2023 8:50am DIABETES H-Sekmckl-E9 Xtjh-Jbbvql-F94 3-35-2 mg tab or Capsule (7 sources) Start: 4 take 1 tablet by mouth twice daily D-Prpmcxr-K8 Wkjr-Lmwttd-J94 3-35-2 mg tab or Capsule Take 1 tablet by mouth twice daily. 0 07/17/2013 Active Comment on above: [facility]. lansoprazole 30 mg delayed release oral capsule (18 sources) Proton Pump Inhibitor Start: 3 End: 2 take 1 capsule by mouth once daily Lansoprazole 30 MG capsule Discontinued 30 mg PO DAILY January 31, 2013 12:00am November 19, 2021 2:00pm Comment on above: Take 1 capsule by [facility] once daily. Yqoaggncd-N3-Agi49-Al gal Oil (7 sources) Start: 3 End: 1 Iebdukzko-X1-Bsf73-Al gal Oil Discontinued 1 EACH PO DAILY January 31, 2013 11:02am June 16, 2020 5:48pm Start: 01-31-2013 End: 06-16-2020 Dfexqsjoq-A3-Xmw52-Algal Oil Discontinued 1 EACH PO DAILY January 30, 2013 11:00pm June 16, 2020 4:48pm Start: 01-31-2013 End: 06-16-2020 Rqaeagmpv-U1-Sae26-Algal Oil Discontinued 1 EACH PO DAILY January 31, 2013 12:00am June 16, 2020 5:48pm Hgggggbyz-Y7-Nls56-Algal Oil 1 EACH capsule (4 sources) Start: 01-31-2013 End: 06-16-2020 Cvhfwyccw-Q4-Rol12-Algal Oil 1 EACH capsule Discontinued 1 NMA [...] Start: 11-19-2021 take 4 tablets by mo [facility] twice daily Methotrexate Sodium Active 10 MG [...] Coronary atherosclerosis; Translations: [Atherosclerotic heart disease of [place] coronary artery without angina pectoris] Onset: 01-03-2025 [...] Facility Lipid Profileon 01-24-2025 CHOL:HDL 4.45 Normal [facility] Comment on above: Performed By: #### L 502.0250, L500.4100 ####[facility] [id number] [place], [address] Cholesterol [Mass/Vol] 187 mg/dL Normal <=200 [facility] Comment on above: Result Comment: Chol esterol level, Desirable <200 mg/dL Borderline high cholesterol 200-239 mg/dL High cholesterol >=240 mg/dL Recommendations of the NCEP Adult Treatment Panel for the following risk-cutoff thresholds for the [place] population. Performed By: #### L 502.0250, L500.4100 ####[facility] [id number] [place], [address] Cholesterol in HDL [Mass/Vol] 42 mg/dL Normal [facility] Comment on above: Result Comment: Bridgett onal Cholesterol Education Program (NCEP) guidelines: <40 mg/dL: Low HDL-cholesterol (major risk factor for CHD) >= 60 mg/dL: High HDL-cholesterol (negative risk factor for CHD) HDL-cholesterol is affected by a number of factors, e.g. smoking, exercise, hormones, sex and age. Performed By: #### L 502.0250, L500.4100 ####[facility] [id number] [place], [address] Cholesterol in LDL [Mass/Vol] 114 mg/dL Normal [facility] Comment on above: Result Comment: Bord qieykd=847-422 mg/dL Higher Qstj=322 mg/dL or greater Friedwald Equation for LDL-C Performed By: #### L 502.0250, L500.4100 ####[facility] [id number] [place], [address] Cholesterol in VLDL [Mass/Vol] 31 mg/dL Normal 5-40 [facility] Comment on above: Performed By: #### L 502.0250, L500.4100 ####[facility] [id number] [place], [address] Triglyceride [Mass/Vol] 154 mg/dL Normal [facility] Comment on above: Result Comment: The drugs N-Acetylcysteine and Metamizole may falsely depress this assay. Normal range: <150 mg/dL Borderline High: 150-199 mg/dL High: 200-499 mg/dL Very High: >500 mg/dL Performed By: #### L 502.0250, L500.4100 ####[facility] [id number] [place], [address] Microalb:Creat Ratio,Random URon 01-24-2025 Creatinine [Mass/Vol] 26.80 mg/dL Low 39.00-259.00 [facility] Comment on above: Performed By: #### L 502.0250, L500.4100 ####[facility] [id number] [place], [address] MALB:CREAT 74.6 mg/g CRE High <30 mg/g CRE [facility] Comment on above: Performed By: #### L 502.0250, L500.4100 ####[facility] [address] [place], [address] MICROALBUMIN,UR 20.0 mg/L Normal <20 mg/L [facility] Comment on above: Performed By: #### L 502.0250, L500.4100 ####[facility] [id number] [place], [address] Echo Completeon 01-17-2025 Echo Complete [facility] [address] [place] [address] Echo Complete 01/17/25 1356 MR#: [id number] Acct: [id number] Name: SHELBI GARCIA BEV Rep #: [id number] : 1955 69 From: Delon Hmailton MD Attending Dr: Monse North NP-C Status: [facility] Ordering Dr: Monse North JAVASCRIPT APPLICATION DEVELOPER JAVASCRIPT APPLICATION DEVELOPER-C Date: 01/17/25 Location: [facility] Sex: M C Admitted: Reason For Study [...] RDCS 01/17/251514 Date Delon Hamilton MD CC: JAVASCRIPT APPLICATION DEVELOPER-C Monse North; Dr. Fatoumata Red MD Date Dictated: 01/17/25 1356 Date Transcribed: 01/17/251514 Airplane Engineer: Signed Normal [facility] Absolute lymphocyte countOrd ered By: Monse North on 12-30-2024 Lymphocytes Auto (Unsp spec) [#/Vol] 3.63 10*3/uL 0.83-4.51 [facility] Absolute neutrophil countOrd ered By: Monse North on 12-30-2024 Neutrophils (Bld) [#/Vol] 4.2 10*3/uL 2.0-7.7 [facility] Anion gap in Serum or Plasma Ordered By: Monse North on 12-30-2024 Anion gap [Moles/Vol] 13 mmol/L 5- [facility] Automated lymphocyte count a s percentage of total leukocytesOrdered By: Monse North on 12-30-2024 Lymphocytes/100 WBC Auto (Unsp spec) 42.2 % High 19-41 [facility] BUN/creatinine ratioOrdered By: Monse North on 12-30-2024 Urea nitrogen/Creatinine [Mass ratio] 17.0 mg/mg 01-27 [facility] Basic Metabolic Profile (BMP )on 12-30-2024 BUN/CRE 17.0 RATIO Normal 01-27 [facility] Comment on above: Performed By: #### L 500.2500, L100.0100, L503.7505, L501.9520 #### [facility] [address] [place], [address] Calcium [Mass/Vol] 9.0 mg/dL Normal 7.6-11.0 [facility] Comment on above: Performed By: #### L 500.2500, L100.0100, L503.7505, L501.9520 #### [facility] [address] [place], [address] Chloride [Moles/Vol] 104 mmol/L Normal 98-108 [facility] Comment on above: Performed By: #### L 500.2500, L100.0100, L503.7505, L501.9520 #### [facility] [address] [place], [address] CO2 [Moles/Vol] 22.9 mmol/L Normal 21.0-32.0 [facility] Comment on above: Performed By: #### L 500.2500, L100.0100, L503.7505, L501.9520 #### [facility] [address] [place], [address] Creatinine [Mass/Vol] 1.79 mg/dL High 0.70-1.20 [facility] Comment on above: Performed By: #### L 500.2500, L100.0100, L503.7505, L501.9520 #### [facility] [address] [place], [address] GAP 13 Normal 5-15 [facility] Comment on above: Performed By: #### L 500.2500, L100.0100, L503.7505, L501.9520 #### [facility] [address] [place], [address] GFR/1.73 sq M.predicted among non-blacks MDRD (S/P/Bld) [Vol rate/Area] 40 mL/min/{1.73_m2} Low >60 [facility] Comment on above: Result Comment: mL/m in/1.73m2 CKD-EPI Creatinine Equation (2020) Performed By: #### L 500.2500, L100.0100, L503.7505, L501.9520 #### [facility] [address] [place], [address] Glucose [Mass/Vol] 114 mg/dL High 70-99 [facility] Comment on above: Performed By: #### L 500.2500, L100.0100, L503.7505, L501.9520 #### [facility] [address] [place], [address] Potassium [Moles/Vol] 4.6 mmol/L Normal 3.3-5.1 [facility] Comment on above: Performed By: #### L 500.2500, L100.0100, L503.7505, L501.9520 #### [facility] [address] [place], [address] Sodium [Moles/Vol] 140 mmol/L Normal 133-145 [facility] Comment on above: Performed By: #### L 500.2500, L100.0100, L503.7505, L501.9520 #### [facility] [address] [place], [address] Urea nitrogen [Mass/Vol] 31 mg/dL High 4-19 [facility] Comment on above: Performed By: #### L 500.2500, L100.0100, L503.7505, L501.9520 #### [facility] [address] [place], [address] Basophil percentageOrdered B y: Monse North on 12-30-2024 Basophils/100 WBC (Bld) 0.6 % 0-1 [facility] CBC W/Diff, Automatedon 12-10 Absolute Lymph 3.63 X10 3/uL Normal 0.83-4.51 [facility] Comment on above: Performed By: #### L 500.2500, L100.0100, L503.7505, L501.9520 #### [facility] [address] [place], [address] Absolute Neut 4.2 X10 3/uL Normal 2.0-7.7 [facility] Comment on above: Performed By: #### L 500.2500, L100.0100, L503.7505, L501.9520 #### [facility] [address] [place], [address] Basophils/100 WBC (Bld) 0.6 % Normal 0-1 [facility] Comment on above: Performed By: #### L 500.2500, L100.0100, L503.7505, L501.9520 #### [facility] [address] [place], [address] Eosinophils/100 WBC (Bld) 3.3 % Normal 0-5 [facility] Comment on above: Performed By: #### L 500.2500, L100.0100, L503.7505, L501.9520 #### [facility] [address] [place], [address] Erythrocyte distribution width (RBC) [Ratio] 14.0 % Normal 11.6-14.6 [facility] Comment on above: Performed By: #### L 500.2500, L100.0100, L503.7505, L501.9520 #### [facility] [address] [place], [address] Hematocrit (Bld) [Volume fraction] 40.3 % Normal 40-54 [facility] Comment on above: Performed By: #### L 500.2500, L100.0100, L503.7505, L501.9520 #### [facility] [address] [place], [address] Hemoglobin (Bld) [Mass/Vol] 13.0 g/dL Normal 13.0-16.5 [facility] Comment on above: Performed By: #### L 500.2500, L100.0100, L503.7505, L501.9520 #### [facility] [address] [place], [address] IG% 0.200 Normal 0.0-0.9 [facility] Comment on above: Result Comment: IG% - Immature Granulocytes (promyelocytes, myelocytes and metamyelocytes) > 1% indicates that a LEFT SHIFT is Present. Performed By: #### L 500.2500, L100.0100, L503.7505, L501.9520 #### [facility] [address] [place], [address] Lymphocytes/100 WBC (Bld) 42.2 % High 19-41 [facility] Comment on above: Performed By: #### L 500.2500, L100.0100, L503.7505, L501.9520 #### [facility] [address] [place], [address] MCH (RBC) [Entitic mass] 32.7 pg High 27.0-32.0 [facility] Comment on above: Performed By: #### L 500.2500, L100.0100, L503.7505, L501.9520 #### [facility] [address] [place], [address] MCHC (RBC) [Mass/Vol] 32.3 g/dL Normal 32-36 [facility] Comment on above: Performed By: #### L 500.2500, L100.0100, L503.7505, L501.9520 #### [facility] [address] [place], [address] MCV (RBC) [Entitic vol] 101.5 fL High 80-94 [facility] Comment on above: Performed By: #### L 500.2500, L100.0100, L503.7505, L501.9520 #### [facility] [address] [place], [address] Monocytes/100 WBC (Bld) 5.0 % Normal 0-10 [facility] Comment on above: Performed By: #### L 500.2500, L100.0100, L503.7505, L501.9520 #### [facility] [address] [place], [address] Neutrophils/100 WBC (Bld) 48.7 % Normal 47-70 [facility] Comment on above: Performed By: #### L 500.2500, L100.0100, L503.7505, L501.9520 #### [facility] [address] [place], [address] Nucleated RBC (Bld) [#/Vol] 0 10*3/uL Normal 0-5 [facility] Comment on above: Performed By: #### L 500.2500, L100.0100, L503.7505, L501.9520 #### [facility] [address] [place], [address] Platelet mean volume (Bld) [Entitic vol] 11.4 fL Normal 6.2-12.0 [facility] Comment on above: Performed By: #### L 500.2500, L100.0100, L503.7505, L501.9520 #### [facility] [address] [place], [address] Platelets (Bld) [#/Vol] 201 10*3/uL Normal 150-450 [facility] Comment on above: Performed By: #### L 500.2500, L100.0100, L503.7505, L501.9520 #### [facility] [address] [place], [address] RBC (Bld) [#/Vol] 3.97 10*6/uL Low 4.6-6.2 [facility] Comment on above: Performed By: #### L 500.2500, L100.0100, L503.7505, L501.9520 #### [facility] [address] [place], [address] RDW SD 52.5 fl High 35.1-43.9 [facility] Comment on above: Performed By: #### L 500.2500, L100.0100, L503.7505, L501.9520 #### [facility] [address] [place], [address] WBC (Bld) [#/Vol] 8.6 10*3/uL Normal 4.4-11.0 [facility] Comment on above: Performed By: #### L 500.2500, L100.0100, L503.7505, L501.9520 #### [facility] [address] [place], [address] Carbon dioxide, total [Moles /volume] in Central venous bloodOrdered By: Monse oNrth on 12-30-2024 CO2 [Moles/Vol] 22.9 mmol/L 21.0-32.0 [facility] Cardiology Visit Reporton Cardiology Visit Report [facility] [address] [place] [address] OFFICE VISIT Date of Service: 12/30/24 MR#: [id number] Acct: [id number] Name: SHELBI GARCIA Rep #: [id number] : 1955 Provider: CHUY self Age/Sex: 69/M Location: [facility] Status: Signed HPI HPI History of Present [...] 96 Intake Visit Reasons: 6 M FU Searchlight Operator Required: No Is patient in pain?: No [...] 1 - 2 puff inhalation Q4H PRN GA N 12/16/20 12/30/24 Rx aerosol inhaler (Ventolin [...] no changes in medications PFSH Medical History (Reviewed 12/30/24 @ 15:19 by Monse North JAVASCRIPT APPLICATION DEVELOPER, JAVASCRIPT APPLICATION DEVELOPER-C) Wears glasses Anxiety Depression Insulin dependent diabetes mellitus Arthritis High cholesterol DVT (deep venous thrombosis) Back pain DDD (degenerative disc disease), lumbar TIA (transient ischemic attack) Dietary restriction Former smoker BiPAP (biphasic positive airway pressure) dependence Shortness of breath on exertion History of pain when walking History of edema History of stress test Card (more content not included)... Normal [facility] Chloride assayOrdered By: Shankar North on 12-30-2024 Chloride [Moles/Vol] 104 mmol/L 98-108 [facility] Eosinophil percentageOrdered By: Monse North on 12-30-2024 Eosinophils/100 WBC (Bld) 3.3 % 0-5 [facility] Erythrocyte distribution wid th ratioOrdered By: Monse North on 12-30-2024 Erythrocyte distribution width (RBC) [Ratio] 14.0 % 11.6-14.6 [facility] Erythrocyte distribution wid th standard deviationOrdered By: Monse North on 12-30-2024 Erythrocyte distribution width (RBC) [Ratio] 52.5 fl High 35.1-43.9 [facility] Glomerular filtration rate ( GFR) estimation/1.73 sq m using serum, plasma, or whole bOrdered By: Monse North on 12-30-2024 GFR/1.73 sq M.predicted among non-blacks MDRD (S/P/Bld) [Vol rate/Area] 40 mL/min/{1.73_m2} Low >60 [facility] Comment on above: mL/min/1.73m2 CKD-EP I Creatinine Equation (2020) Hematocrit Auto (Bld) [Volum e fraction]Ordered By: Monse North on 12-30-2024 Hematocrit (Bld) [Volume fraction] 40.3 % 40-54 [facility] Hemoglobin measurementOrdere d By: Monse North on 12-30-2024 Hemoglobin (Bld) [Mass/Vol] 13.0 g/dL 13.0-16.5 [facility] Immature granulocytes/100 WB C Auto (Bld)Ordered By: Monse North on 12-30-2024 Immature granulocytes/100 WBC (Bld) 0.200 % 0.0-0.9 [facility] Comment on above: IG% - Immature Granu locytes (promyelocytes, myelocytes and metamyelocytes) > 1% indicates that a LEFT SHIFT is Present. MCV (mean corpuscular volume ) determinationOrdered By: Monse North on 12-30-2024 MCV (RBC) [Entitic vol] 101.5 fL High 80-94 [facility] Mean corpuscular hemoglobin (MCH) determinationOrdered By: Monse North on 12-30-2024 MCH (RBC) [Entitic mass] 32.7 pg High 27.0-32.0 [facility] Mean corpuscular hemoglobin concentration (MCHC) determinationOrdered By: Monse North on 12-30-2024 MCHC (RBC) [Mass/Vol] 32.3 g/dL 32-36 [facility] Mean platelet volume determi nationOrdered By: Monse North on 12-30-2024 Platelet mean volume (Bld) [Entitic vol] 11.4 fL 6.2-12.0 [facility] Monocyte percentageOrdered B y: Monse North on 12-30-2024 Monocytes/100 WBC (Bld) 5.0 % 0-10 [facility] Natriuretic peptide.B prohor linda N-Terminal [Mass/volume] in Serum or PlasmaOrdered By: Monse North on 12-30-2024 Natriuretic peptide.B prohormone N-Terminal [Mass/Vol] 1230 pg/mL High <900 [facility] Comment on above: Heart Failure Unlike ly: < 300 pg/mLHeart Failure Likely< 50 Years: > 450 pg/mL50-75 Years: > 900 pg/mL>75 Years: > 1800 pg/mL Neutrophil percentageOrdered By: Monse North on 12-30-2024 Neutrophils/100 WBC (Bld) 48.7 % 47-70 [facility] Nucleated red blood cell per centageOrdered By: Monse North on 12-30-2024 Nucleated RBC/100 WBC (Bld) [Ratio] 0 % 0-5 [facility] Platelet countOrdered By: Shankar North on 12-30-2024 Platelets (Bld) [#/Vol] 201 10*3/uL 150-450 [facility] Potassium measurement (mass/ volume)Ordered By: Monse North on 12-30-2024 Potassium (Unsp spec) [Mass/Vol] 4.6 mmol/L 3.3-5.1 [facility] Pro- Brain NATRIURETIC PEPTI Abril 12-30-2024 Natriuretic peptide B (Bld) [Mass/Vol] 1230 pg/mL High <=900 [facility] Comment on above: Result Comment: Hear t Failure Unlikely: < 300 pg/mL Heart Failure Likely < 50 Years: > 450 pg/mL 50-75 Years: > 900 pg/mL >75 Years: > 1800 pg/mL Performed By: #### L 500.2500, L100.0100, L503.7505, L501.9520 #### [facility] [address] [place], [address] RBC Auto (Bld) [#/Vol]Ordere d By: Monse North on 12-30-2024 RBC (Bld) [#/Vol] 3.97 10*6/uL Low 4.6-6.2 [facility] Serum creatinine measurement (mass/volume)Ordered By: Monse North on 12-30-2024 Creatinine [Mass/Vol] 1.79 mg/dL High 0.70-1.20 [facility] Serum glucose measurement (m ass/volume)Ordered By: Monse North on 12-30-2024 Glucose [Mass/Vol] 114 mg/dL High 70-99 [facility] Serum or plasma calcium bj urement (mass/volume)Ordered By: Monse North on 12-30-2024 Calcium [Mass/Vol] 9.0 mg/dL 7.6-11.0 [facility] Serum or plasma urea nitroge n measurement (mass/volume)Ordered By: Monse North on 12-30-2024 Urea nitrogen [Mass/Vol] 31 mg/dL High 4-19 [facility] Sodium levelOrdered By: Jennifer North on 12-30-2024 Sodium [Moles/Vol] 140 mmol/L 133-145 [facility] TSH DL <= 0.005 mIU/L QnOrde red By: Monse North on 12-30-2024 TSH Qn 2.110 uIU/mL 0.300-4.200 [facility] Thyroid Stim Hormone (TSH)on 12-30-2024 TSH 2.110 uIU/mL Normal 0.300-4.200 [facility] Comment on above: Performed By: #### L 500.2500, L100.0100, L503.7505, L501.9520 #### [facility] Laboratory [address] [place], [address] White blood cell (WBC) count Ordered By: Monse North on 12-30-2024 WBC (Bld) [#/Vol] 8.6 10*3/uL 4.4-11.0 [facility] Cardiovascular stress test r eportOrdered By: Delon Hamilton on 12-23-2024 Study report [facility] [address] [place] [address] MR#: [id number] Acct: [id number] Name: SHELBI GARCIA Rep #: [id number] : 1955 69 From: Delon Hamilton MD [...] of 67%. This note was generated with The [employer] software. It may contain incorrectwords, spelling, and punctuation that were not noted in checking the note beforesigning. 12/23/24 1144 Date _ Delon Hamilton MD CC: Dr. Fatoumata Red MD ~ Date Dictated: 12/23/24 114 Date Transcribed: 12/23/241142 Airplane Engineer: MARLIN Peters [facility] Work Phone: Stress Reporton 12-23-2024 Stress Report [facility] [address] [place] [phone] MR#: [id number] Acct: [id number] Name: SHELBI GARCIA Rep #: [id number] : 1955 69 From: Delon Hamilton MD [...] of 67%. This note was generated with [employer] software. It may contain incorrect words, spelling, and punctuation that were not noted in checking the note before signing. 12/23/24 1144 Date Delon Hamilton MD CC: Dr. Fatoumata Red MD Date Dictated: 12/23/24 1143 Date Transcribed: 12/23/24 1143 Airplane Engineer: MARLIN Signed Normal [facility] Absolute lymphocyte countOrd ered By: Fatoumata Red on 11-28-2024 Lymphocytes Auto (Unsp spec) [#/Vol] 3.31 10*3/uL 0.83-4.51 [facility] Absolute neutrophil countOrd ered By: Fatoumata Red on 11-28-2024 Neutrophils (Bld) [#/Vol] 3.5 10*3/uL 2.0-7.7 [facility] Anion gap in Serum or Plasma Ordered By: Fatoumata Red on 11-28-2024 Anion gap [Moles/Vol] 11 mmol/L -15 [facility] Automated lymphocyte count a s percentage of total leukocytesOrdered By: Fatoumata Red on 11-28-2024 Lymphocytes/100 WBC Auto (Unsp spec) 44.1 % High 19-41 [facility] BUN/creatinine ratioOrdered By: Fatoumatamateo Red on 11-28-2024 Urea nitrogen/Creatinine [Mass ratio] 16.4 mg/mg 10-20 [facility] Basophil percentageOrdered B y: Fatoumata Red on 11-28-2024 Basophils/100 WBC (Bld) 0.5 % 0-1 [facility] Bilirubin, totalOrdered By: Fatoumata Red on 11-28-2024 Bilirubin [Mass/Vol] 0.48 mg/dL 0.00-1.30 [facility] CBC W/Diff, Automatedon 11-09 Absolute Lymph 3.31 X10 3/uL Normal 0.83-4.51 [facility] Comment on above: Performed By: #### L 100.0100, L500.4050 #### [facility] Laboratory [address] [place], [address] Absolute Neut 3.5 X10 3/uL Normal 2.0-7.7 [facility] Comment on above: Performed By: #### L 100.0100, L500.4050 #### [facility] Laboratory [address] [place], [address] Basophils/100 WBC (Bld) 0.5 % Normal 0-1 [facility] Comment on above: Performed By: #### L 100.0100, L500.4050 #### [facility] Laboratory [address] [place], [address] Eosinophils/100 WBC (Bld) 4.1 % Normal 0-5 [facility] Comment on above: Performed By: #### L 100.0100, L500.4050 #### [facility] Laboratory [address] [place], [address] Erythrocyte distribution width (RBC) [Ratio] 14.7 % High 11.6-14.6 [facility] Comment on above: Performed By: #### L 100.0100, L500.4050 #### [facility] Laboratory [address] [place], [address] Hematocrit (Bld) [Volume fraction] 38.5 % Low 40-54 [facility] Comment on above: Performed By: #### L 100.0100, L500.4050 #### [facility] Laboratory [address] [place], [address] Hemoglobin (Bld) [Mass/Vol] 12.5 g/dL Low 13.0-16.5 [facility] Comment on above: Performed By: #### L 100.0100, L500.4050 #### [facility] Laboratory [address] [place], [address] IG% 0.100 Normal 0.0-0.9 [facility] Comment on above: Result Comment: IG% - Immature Granulocytes (promyelocytes, myelocytes and metamyelocytes) > 1% indicates that a LEFT SHIFT is Present. Performed By: #### L 100.0100, L500.4050 #### [facility] Laboratory [address] [place], [address] Lymphocytes/100 WBC (Bld) 44.1 % High 19-41 [facility] Comment on above: Performed By: #### L 100.0100, L500.4050 #### [facility] Laboratory [address] [place], [address] MCH (RBC) [Entitic mass] 32.7 pg High 27.0-32.0 [facility] Comment on above: Performed By: #### L 100.0100, L500.4050 #### [facility] Laboratory [address] [place], [address] MCHC (RBC) [Mass/Vol] 32.5 g/dL Normal 32-36 [facility] Comment on above: Performed By: #### L 100.0100, L500.4050 #### [facility] Laboratory [address] [place], [address] MCV (RBC) [Entitic vol] 100.8 fL High 80-94 [facility] Comment on above: Performed By: #### L 100.0100, L500.4050 #### [facility] Laboratory [address] [place], [address] Monocytes/100 WBC (Bld) 4.9 % Normal 0-10 [facility] Comment on above: Performed By: #### L 100.0100, L500.4050 #### [facility] Laboratory [address] [place], [address] Neutrophils/100 WBC (Bld) 46.3 % Low 47-70 [facility] Comment on above: Performed By: #### L 100.0100, L500.4050 #### [facility] Laboratory [address] [place], [address] Nucleated RBC (Bld) [#/Vol] 0 10*3/uL Normal 0-5 [facility] Comment on above: Performed By: #### L 100.0100, L500.4050 #### [facility] Laboratory [address] [place], [address] Platelet mean volume (Bld) [Entitic vol] 10.9 fL Normal 6.2-12.0 [facility] Comment on above: Performed By: #### L 100.0100, L500.4050 #### [facility] Laboratory [address] [place], [address] Platelets (Bld) [#/Vol] 213 10*3/uL Normal 150-450 [facility] Comment on above: Performed By: #### L 100.0100, L500.4050 #### [facility] Laboratory [address] [place], [address] RBC (Bld) [#/Vol] 3.82 10*6/uL Low 4.6-6.2 [facility] Comment on above: Performed By: #### L 100.0100, L500.4050 #### [facility] Laboratory [address] [place], [address] RDW SD 54.4 fl High 35.1-43.9 [facility] Comment on above: Performed By: #### L 100.0100, L500.4050 #### [facility] Laboratory [address] [place], [address] WBC (Bld) [#/Vol] 7.5 10*3/uL Normal 4.4-11.0 [facility] Comment on above: Performed By: #### L 100.0100, L500.4050 #### [facility] Laboratory [address] [place], [address] Carbon dioxide, total [Moles /volume] in Central venous bloodOrdered By: Fatoumata Red on 11-28-2024 CO2 [Moles/Vol] 24.8 mmol/L 21.0-32.0 [facility] Chloride assayOrdered By: Dario Red on 11-28-2024 Chloride [Moles/Vol] 103 mmol/L 98-108 [facility] Comprehensive Metabolic Prof ilon 11-28-2024 Albumin [Mass/Vol] 4.2 g/dL Normal 3.4-4.8 [facility] Comment on above: Performed By: #### L 100.0100, L500.4050 #### [facility] Laboratory [address] [place], [address] Albumin/Globulin [Mass ratio] 1.4 {ratio} Normal 0.9-2.4 [facility] Comment on above: Performed By: #### L 100.0100, L500.4050 #### [facility] Laboratory [address] [place], [address] ALK PHOS 72 U/L Normal 40-129 [facility] Comment on above: Performed By: #### L 100.0100, L500.4050 #### [facility] Laboratory [address] [place], [address] ALT [Catalytic activity/Vol] 31 U/L Normal <=46 [facility] Comment on above: Performed By: #### L 100.0100, L500.4050 #### [facility] Laboratory [address] [place], [address] AST [Catalytic activity/Vol] 18 U/L Normal <=37 [facility] Comment on above: Performed By: #### L 100.0100, L500.4050 #### [facility] Laboratory [address] [place], [address] Bilirubin [Mass/Vol] 0.48 mg/dL Normal 0.00-1.30 [facility] Comment on above: Performed By: #### L 100.0100, L500.4050 #### [facility] Laboratory [address] [place], [address] BUN/CRE 16.4 RATIO Normal 10-20 [facility] Comment on above: Performed By: #### L 100.0100, L500.4050 #### [facility] Laboratory [address] [place], [address] Calcium [Mass/Vol] 8.7 mg/dL Normal 7.6-11.0 [facility] Comment on above: Performed By: #### L 100.0100, L500.4050 #### [facility] Laboratory [address] [place], [address] Chloride [Moles/Vol] 103 mmol/L Normal 98-108 [facility] Comment on above: Performed By: #### L 100.0100, L500.4050 #### [facility] Laboratory [address] [place], [address] CO2 [Moles/Vol] 24.8 mmol/L Normal 21.0-32.0 [facility] Comment on above: Performed By: #### L 100.0100, L500.4050 #### [facility] Laboratory [address] [place], [address] Creatinine [Mass/Vol] 1.60 mg/dL High 0.70-1.20 [facility] Comment on above: Performed By: #### L 100.0100, L500.4050 #### [facility] Laboratory [address] [place], [address] GAP 11 Normal 5-15 [facility] Comment on above: Performed By: #### L 100.0100, L500.4050 #### [facility] Laboratory [address] [place], [address] GFR/1.73 sq M.predicted among non-blacks MDRD (S/P/Bld) [Vol rate/Area] 46 mL/min/{1.73_m2} Low >60 [facility] Comment on above: Result Comment: mL/m in/1.73m2 CKD-EPI Creatinine Equation (2020) Performed By: #### L 100.0100, L500.4050 #### [facility] Laboratory [address] [place], [address] Globulin (S) [Mass/Vol] 2.9 g/dL Normal 2.2-4.2 [facility] Comment on above: Performed By: #### L 100.0100, L500.4050 #### [facility] Laboratory [address] [place], [address] Glucose [Mass/Vol] 117 mg/dL High 70-99 [facility] Comment on above: Performed By: #### L 100.0100, L500.4050 #### [facility] Laboratory [address] [place], [address] Potassium [Moles/Vol] 4.7 mmol/L Normal 3.3-5.1 [facility] Comment on above: Performed By: #### L 100.0100, L500.4050 #### [facility] Laboratory [address] [place], [address] Sodium [Moles/Vol] 139 mmol/L Normal 133-145 [facility] Comment on above: Performed By: #### L 100.0100, L500.4050 #### [facility] Laboratory [address] [place], [address] T PROT 7.0 g/dL Normal 5.9-8.4 [facility] Comment on above: Performed By: #### L 100.0100, L500.4050 #### [facility] Laboratory [address] [place], [address] Urea nitrogen [Mass/Vol] 26 mg/dL High 4-19 [facility] Comment on above: Performed By: #### L 100.0100, L500.4050 #### [facility] Laboratory [address] [place], [address] Eosinophil percentageOrdered By: Fatoumata Red on 11-28-2024 Eosinophils/100 WBC (Bld) 4.1 % 0-5 [facility] Erythrocyte distribution wid th ratioOrdered By: Fatoumata Red on 11-28-2024 Erythrocyte distribution width (RBC) [Ratio] 14.7 % High 11.6-14.6 [facility] Erythrocyte distribution wid th standard deviationOrdered By: Fatoumata Red on 11-28-2024 Erythrocyte distribution width (RBC) [Ratio] 54.4 fl High 35.1-43.9 [facility] Glomerular filtration rate ( GFR) estimation/1.73 sq m using serum, plasma, or whole bOrdered By: Fatoumata Red on 11-28-2024 GFR/1.73 sq M.predicted among non-blacks MDRD (S/P/Bld) [Vol rate/Area] 46 mL/min/{1.73_m2} Low >60 [facility] Comment on above: mL/min/1.73m2 CKD-EP I Creatinine Equation (2020) Hematocrit Auto (Bld) [Volum e fraction]Ordered By: Fatoumata Red on 11-28-2024 Hematocrit (Bld) [Volume fraction] 38.5 % Low 40-54 [facility] Hemoglobin measurementOrdere d By: Fatoumata Red on 11-28-2024 Hemoglobin (Bld) [Mass/Vol] 12.5 g/dL Low 13.0-16.5 [facility] Immature granulocytes/100 WB C Auto (Bld)Ordered By: Fatoumata Red on 11-28-2024 Immature granulocytes/100 WBC (Bld) 0.100 % 0.0-0.9 [facility] Comment on above: IG% - Immature Granu locytes (promyelocytes, myelocytes and metamyelocytes) > 1% indicates that a LEFT SHIFT is Present. Laboratory - Chemistry and C hemistry - challengeOrdered By: Fatoumata Red on 11-28-2024 AST [Catalytic activity/Vol] 18 U/L <38 [facility] MCV (mean corpuscular volume ) determinationOrdered By: Fatoumata Red on 11-28-2024 MCV (RBC) [Entitic vol] 100.8 fL High 80-94 [facility] Mean corpuscular hemoglobin (MCH) determinationOrdered By: Fatoumata Red on 11-28-2024 MCH (RBC) [Entitic mass] 32.7 pg High 27.0-32.0 [facility] Mean corpuscular hemoglobin concentration (MCHC) determinationOrdered By: Fatoumata Red on 11-28-2024 MCHC (RBC) [Mass/Vol] 32.5 g/dL 32-36 [facility] Mean platelet volume determi nationOrdered By: Fatoumata Red on 11-28-2024 Platelet mean volume (Bld) [Entitic vol] 10.9 fL 6.2-12.0 [facility] Monocyte percentageOrdered B y: Fatoumata Red on 11-28-2024 Monocytes/100 WBC (Bld) 4.9 % 0-10 [facility] Neutrophil percentageOrdered By: Fatoumata Red on 11-28-2024 Neutrophils/100 WBC (Bld) 46.3 % Low 47-70 [facility] Nucleated red blood cell per centageOrdered By: Fatoumata Red on 11-28-2024 Nucleated RBC/100 WBC (Bld) [Ratio] 0 % 0-5 [facility] Platelet countOrdered By: Dario Red on 11-28-2024 Platelets (Bld) [#/Vol] 213 10*3/uL 150-450 [facility] Potassium measurement (mass/ volume)Ordered By: Fatoumata Red on 11-28-2024 Potassium (Unsp spec) [Mass/Vol] 4.7 mmol/L 3.3-5.1 [facility] RBC Auto (Bld) [#/Vol]Ordere d By: Fatoumata Red on 11-28-2024 RBC (Bld) [#/Vol] 3.82 10*6/uL Low 4.6-6.2 [facility] Serum creatinine measurement (mass/volume)Ordered By: Fatoumata Red on 11-28-2024 Creatinine [Mass/Vol] 1.60 mg/dL High 0.70-1.20 [facility] Serum globulin measurementOr dered By: Fatoumata Red on 11-28-2024 Globulin (S) [Mass/Vol] 2.9 g/dL 2.2-4.2 [facility] Serum glucose measurement (m ass/volume)Ordered By: Fatoumata Red on 11-28-2024 Glucose [Mass/Vol] 117 mg/dL High 70-99 [facility] Serum or plasma alanine sanches otransferase (ALT) measurementOrdered By: Fatoumata Red on 11-28-2024 ALT [Catalytic activity/Vol] 31 U/L <47 [facility] Serum or plasma albumin bj urement (mass/volume)Ordered By: Fatoumata Red on 11-28-2024 Albumin [Mass/Vol] 4.2 g/dL 3.4-4.8 [facility] Serum or plasma albumin/glob ulin mass ratioOrdered By: Fatoumata Red on 11-28-2024 Albumin/Globulin [Mass ratio] 1.4 {ratio} 0.9-2.4 [facility] Serum or plasma alkaline cynthia sphatase measurementOrdered By: Fatoumata Red on 11-28-2024 ALP [Catalytic activity/Vol] 72 U/L 40-129 [facility] Serum or plasma calcium bj urement (mass/volume)Ordered By: Fatoumata Red on 11-28-2024 Calcium [Mass/Vol] 8.7 mg/dL 7.6-11.0 [facility] Serum or plasma urea nitroge n measurement (mass/volume)Ordered By: Fatoumata Red on 11-28-2024 Urea nitrogen [Mass/Vol] 26 mg/dL High 4-19 [facility] Sodium levelOrdered By: Tami Red on 11-28-2024 Sodium [Moles/Vol] 139 mmol/L 133-145 [facility] Total proteinOrdered By: Tal Red on 11-28-2024 Protein [Mass/Vol] 7.0 g/dL 5.9-8.4 [facility] White blood cell (WBC) count Ordered By: Fatoumata Red on 11-28-2024 WBC (Bld) [#/Vol] 7.5 10*3/uL 4.4-11.0 [facility] Cardiology Visit Reporton Cardiology Visit Report [facility] [address] [place] [address] OFFICE VISIT Date of Service: 06/19/24 MR#: [id number] Acct: [id number] Name: SHELBI GARCIA Rep #: [id number] : 1955 Provider: Dr. 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 Normal [facility] Absolute lymphocyte countOrd ered By: Monse North on 03-06-2023 Lymphocytes Auto (Unsp spec) [#/Vol] 4.78 10*3/uL 0.83-4.51 [facility] Basophil percentageOrdered B y: Monse North on 03-06-2023 Basophils/100 WBC (Bld) 0.6 % 0-1 [facility] Chloride [Moles/Vol] 106 mmol/L 98-107 [facility] Eosinophils/100 WBC (Bld) 2.9 % 0-5 [facility] Glucose [Mass/Vol] 155 mg/dL 74-106 [facility] Comment on above: Fasting Glucose resu lt greater than or equal to 126 mg/dL suggests DIABETES MELLITUS per A.D.A. criteria. Neutrophils (Bld) [#/Vol] 3.9 10*3/uL 2.0-7.7 [facility] Neutrophils/100 WBC (Bld) 41.4 % 47-70 [facility] Potassium [Moles/Vol] 4.6 mmol/L 3.5-5.1 [facility] Comment on above: Moderate Hemolysis, Result may be falsely increased. Sodium [Moles/Vol] 138 mmol/L 136-145 [facility] WBC (Bld) [#/Vol] 9.5 10*3/uL 4.4-11.0 [facility] Blood erythrocytes count (nu mber/volume)Ordered By: Monse North on 03-06-2023 RBC (Bld) [#/Vol] 4.98 10*6/uL 4.6-6.2 [facility] Blood hemoglobin measurement (mass/volume)Ordered By: Monse North on 03-06-2023 Hemoglobin (Bld) [Mass/Vol] 15.1 g/dL 13.0-16.5 [facility] Blood lymphocytes/100 leukoc ytesOrdered By: Monse North on 03-06-2023 Lymphocytes/100 WBC (Bld) 50.3 % 19-41 [facility] Blood monocytes/100 leukocyt esOrdered By: Monse North on 03-06-2023 Monocytes/100 WBC (Bld) 4.7 % 0-10 [facility] Blood platelet mean volumeOr dered By: Monse North on 03-06-2023 Platelet mean volume (Bld) [Entitic vol] 11.2 fL 6.2-12.0 [facility] Determination of erythrocyte mean corpuscular volume (MCV)Ordered By: Monse North on 03-06-2023 MCV (RBC) [Entitic vol] 96.4 fL 80-94 [facility] Hematocrit Auto (Bld) [Volum e fraction]Ordered By: Monse North on 03-06-2023 Hematocrit (Bld) [Volume fraction] 48.0 % 40-54 [facility] Laboratory - Chemistry and C hemistry - challengeOrdered By: Monse North on 03-06-2023 CO2 [Moles/Vol] 28.0 mmol/L 21.0-32.0 [facility] Urea nitrogen/Creatinine [Mass ratio] 19.4 mg/mg 10-20 [facility] Laboratory - Hematology and Cell countsOrdered By: Monse North on 03-06-2023 Erythrocyte distribution width (RBC) [Entitic vol] 49.2 fL 35.1-43.9 [facility] Erythrocyte distribution width (RBC) [Ratio] 13.8 % 11.6-14.6 [facility] Immature granulocytes/100 WBC (Bld) 0.100 % 0.0-0.9 [facility] Comment on above: IG% - Immature Granu locytes (promyelocytes, myelocytes and metamyelocytes) > 1% indicates that a LEFT SHIFT is Present. MCH (RBC) [Entitic mass] 30.3 pg 27.0-32.0 [facility] Nucleated RBC/100 WBC (Bld) [Ratio] 0 % 0-5 [facility] MCHC Auto (RBC) [Mass/Vol]Or dered By: Monse North on 03-06-2023 MCHC (RBC) [Mass/Vol] 31.5 g/dL 32-36 [facility] No Panel InformationOrdered By: Monse North on 03-06-2023 Estimated GFR (MDRD) Amer 57 mL/min >60 [facility] Comment on above: GFR Calc Estimated GFR (MDRD) Non-Af Amer 47 mL/min >60 [facility] Comment on above: Non- GFR Calc Platelets bldOrdered By: Mikie North on 03-06-2023 Platelets (Bld) [#/Vol] 183 10*3/uL 150-450 [facility] Serum or plasma calcium bj urement (mass/volume)Ordered By: Monse North on 03-06-2023 Calcium [Mass/Vol] 8.4 mg/dL 8.5-10.1 [facility] Serum or plasma creatinine m easurement (mass/volume)Ordered By: Monse North on 03-06-2023 Creatinine [Mass/Vol] 1.55 mg/dL 0.70-1.30 [facility] Comment on above: The validity of the calculated GFR & GFRAA in patients over 70 years has not been determined. Clinical correlation is essential. Serum or plasma urea nitroge n measurement (mass/volume)Ordered By: Monse North on 03-06-2023 Urea nitrogen [Mass/Vol] 30 mg/dL 7-18 [facility] Thin prep Papanicolaou smear with manual screeningOrdered By: Monse North on 03-06-2023 Thin prep Papanicolaou smear with manual screening 4 5-15 [facility] Absolute lymphocyte countOrd ered By: Warren Olivarez on 02-01-2023 Lymphocytes Auto (Unsp spec) [#/Vol] 4.13 10*3/uL 0.83-4.51 [facility] Basophil percentageOrdered B y: Warren Olivarez on 02-01-2023 Basophils/100 WBC (Bld) 0.6 % 0-1 [facility] Eosinophils/100 WBC (Bld) 2.6 % 0-5 [facility] Neutrophils (Bld) [#/Vol] 4.2 10*3/uL 2.0-7.7 [facility] Neutrophils/100 WBC (Bld) 45.6 % 47-70 [facility] WBC (Bld) [#/Vol] 9.3 10*3/uL 4.4-11.0 [facility] Blood erythrocytes count (nu mber/volume)Ordered By: Warren Olivarez on 02-01-2023 RBC (Bld) [#/Vol] 4.83 10*6/uL 4.6-6.2 [facility] Blood hemoglobin measurement (mass/volume)Ordered By: Warren Olivarez on 02-01-2023 Hemoglobin (Bld) [Mass/Vol] 14.6 g/dL 13.0-16.5 [facility] Blood lymphocytes/100 leukoc ytesOrdered By: Warren Olivarez on 02-01-2023 Lymphocytes/100 WBC (Bld) 44.6 % 19-41 [facility] Blood monocytes/100 leukocyt esOrdered By: Warren Olivarez on 02-01-2023 Monocytes/100 WBC (Bld) 6.3 % 0-10 [facility] Blood platelet mean volumeOr dered By: Warren Olivarez on 02-01-2023 Platelet mean volume (Bld) [Entitic vol] 11.2 fL 6.2-12.0 [facility] Determination of erythrocyte mean corpuscular volume (MCV)Ordered By: Warren Olivarez on 02-01-2023 MCV (RBC) [Entitic vol] 97.1 fL 80-94 [facility] Erythrocyte sedimentation ra teOrdered By: Warren Olivarez on 02-01-2023 ESR (Bld) [Velocity] 63 mm/h 0-20 [facility] Hematocrit Auto (Bld) [Volum e fraction]Ordered By: Warren Olivarez on 02-01-2023 Hematocrit (Bld) [Volume fraction] 46.9 % 40-54 [facility] Laboratory - Hematology and Cell countsOrdered By: Warren Olivarez on 02-01-2023 Erythrocyte distribution width (RBC) [Entitic vol] 51.3 fL 35.1-43.9 [facility] Erythrocyte distribution width (RBC) [Ratio] 14.2 % 11.6-14.6 [facility] Immature granulocytes/100 WBC (Bld) 0.300 % 0.0-0.9 [facility] Comment on above: IG% - Immature Granu locytes (promyelocytes, myelocytes and metamyelocytes) > 1% indicates that a LEFT SHIFT is Present. MCH (RBC) [Entitic mass] 30.2 pg 27.0-32.0 [facility] Nucleated RBC/100 WBC (Bld) [Ratio] 0 % 0-5 [facility] MCHC Auto (RBC) [Mass/Vol]Or dered By: Warren Olivarez on 02-01-2023 MCHC (RBC) [Mass/Vol] 31.1 g/dL 32-36 [facility] Platelets bldOrdered By: Hubert Olivarez on 02-01-2023 Platelets (Bld) [#/Vol] 194 10*3/uL 150-450 [facility] Serum or plasma C reactive p rotein measurement (mass/volume)Ordered By: Warren Olivarez on 02-01-2023 CRP [Mass/Vol] 8.48 mg/L 0.0-3.0 [facility] Comment on above: C-Reactive Protein ( CRP) provides useful information for thediagnosis, therapy and monitoring of inflammatory processesand associated diseases. For the evaluation of Relative Riskfor Cardiovascular Disease, a High Sensitivity CRP (HSCRP)should be ordered. Absolute lymphocyte countOrd ered By: Fatoumata Red on 01-13-2023 Lymphocytes Auto (Unsp spec) [#/Vol] 2.43 10*3/uL 0.83-4.51 [facility] Basophil percentageOrdered B y: Fatoumata Red on 01-13-2023 Basophils/100 WBC (Bld) 0.8 % 0-1 [facility] Bilirubin [Mass/Vol] 0.40 mg/dL 0.20-1.00 [facility] Comment on above: For patients on eltr ombopag therapy, use of Dimension [place] TBIL is not recommended. Chloride [Moles/Vol] 107 mmol/L 98-107 [facility] Cholesterol [Mass/Vol] 104 mg/dL <200 [facility] Comment on above: <200 mg/dL Desirable 200-240 mg/dL Borderline >240 mg/dL High Risk Eosinophils/100 WBC (Bld) 2.4 % 0-5 [facility] Glucose [Mass/Vol] 189 mg/dL 74-106 [facility] Comment on above: Fasting Glucose resu lt greater than or equal to 126 mg/dL suggests DIABETES MELLITUS per A.D.A. criteria. Neutrophils (Bld) [#/Vol] 4.6 10*3/uL 2.0-7.7 [facility] Neutrophils/100 WBC (Bld) 58.7 % 47-70 [facility] Potassium [Moles/Vol] 3.9 mmol/L 3.5-5.1 [facility] Protein [Mass/Vol] 7.5 g/dL 6.4-8.2 [facility] Sodium [Moles/Vol] 138 mmol/L 136-145 [facility] Triglyceride [Mass/Vol] 100 mg/dL <199 [facility] Comment on above: The drugs N-Acetylcy steine and Metamizole may falsely depress this assay.Serum Triglycerides Reference Interval Normal <150 mg/dL Borderline high 150 - 199 mg/dL High 200 - 499 mg/dL Very High > or = 500 mg/dL WBC (Bld) [#/Vol] 7.8 10*3/uL 4.4-11.0 [facility] Blood erythrocytes count (nu mber/volume)Ordered By: Fatoumata Red on 01-13-2023 RBC (Bld) [#/Vol] 4.75 10*6/uL 4.6-6.2 [facility] Blood hemoglobin measurement (mass/volume)Ordered By: Fatoumata Red on 01-13-2023 Hemoglobin (Bld) [Mass/Vol] 14.7 g/dL 13.0-16.5 [facility] Blood lymphocytes/100 leukoc ytesOrdered By: Fatoumata Red on 01-13-2023 Lymphocytes/100 WBC (Bld) 31.2 % 19-41 [facility] Blood monocytes/100 leukocyt esOrdered By: Fatoumata Red on 01-13-2023 Monocytes/100 WBC (Bld) 6.6 % 0-10 [facility] Blood platelet mean volumeOr dered By: Fatoumata Red on 01-13-2023 Platelet mean volume (Bld) [Entitic vol] 10.9 fL 6.2-12.0 [facility] Determination of erythrocyte mean corpuscular volume (MCV)Ordered By: Fatoumata Red on 01-13-2023 MCV (RBC) [Entitic vol] 97.3 fL 80-94 [facility] Hematocrit Auto (Bld) [Volum e fraction]Ordered By: Fatoumata Red on 01-13-2023 Hematocrit (Bld) [Volume fraction] 46.2 % 40-54 [facility] Laboratory - Chemistry and C hemistry - challengeOrdered By: Fatoumata Red on 01-13-2023 ALP [Catalytic activity/Vol] 98 U/L 45-117 [facility] ALT [Catalytic activity/Vol] 19 U/L 16-61 [facility] CO2 [Moles/Vol] 25.0 mmol/L 21.0-32.0 [facility] Globulin (S) [Mass/Vol] 4.0 g/dL 2.2-4.2 [facility] Urea nitrogen/Creatinine [Mass ratio] 20.4 mg/mg 10-20 [facility] Laboratory - Hematology and Cell countsOrdered By: Fatoumata Red on 01-13-2023 Erythrocyte distribution width (RBC) [Entitic vol] 50.3 fL 35.1-43.9 [facility] Erythrocyte distribution width (RBC) [Ratio] 13.8 % 11.6-14.6 [facility] Immature granulocytes/100 WBC (Bld) 0.300 % 0.0-0.9 [facility] Comment on above: IG% - Immature Granu locytes (promyelocytes, myelocytes and metamyelocytes) > 1% indicates that a LEFT SHIFT is Present. MCH (RBC) [Entitic mass] 30.9 pg 27.0-32.0 [facility] Nucleated RBC/100 WBC (Bld) [Ratio] 0 % 0-5 [facility] MCHC Auto (RBC) [Mass/Vol]Or dered By: Fatoumata Red on 01-13-2023 MCHC (RBC) [Mass/Vol] 31.8 g/dL 32-36 [facility] No Panel InformationOrdered By: Fatoumata Red on 01-13-2023 Estimated GFR (MDRD) Amer 55 mL/min >60 [facility] Comment on above: GFR Calc Estimated GFR (MDRD) Non-Af Amer 45 mL/min >60 [facility] Comment on above: Non- GFR Calc Platelets bldOrdered By: Tal Red on 01-13-2023 Platelets (Bld) [#/Vol] 216 10*3/uL 150-450 [facility] Serum or plasma albumin bj urement (mass/volume)Ordered By: Fatoumata Red on 01-13-2023 Albumin [Mass/Vol] 3.5 g/dL 3.2-5.0 [facility] Serum or plasma albumin/glob ulin mass ratioOrdered By: Fatoumata Red on 01-13-2023 Albumin/Globulin [Mass ratio] 0.9 {ratio} 0.9-2.4 [facility] Serum or plasma calcium bj urement (mass/volume)Ordered By: Fatoumata Red on 01-13-2023 Calcium [Mass/Vol] 8.7 mg/dL 8.5-10.1 [facility] Serum or plasma cholesterol in HDL measurement (mass/volume)Ordered By: Fatoumata Red on 01-13-2023 Cholesterol in HDL [Mass/Vol] 36 mg/dL >40 [facility] Comment on above: The drugs N-Acetylcy steine and Metamizole may falsely depress this assay. Reference Range HDL <40 mg/dL Low HDL Cholesterol HDL >or= 60 mg/dL High HDL Cholesterol Serum or plasma cholesterol in VLDL measurement (mass/volume)Ordered By: Fatoumata Red on 01-13-2023 Cholesterol in VLDL [Mass/Vol] 20 mg/dL 5-40 [facility] Serum or plasma creatinine m easurement (mass/volume)Ordered By: Fatoumata Red on 01-13-2023 Creatinine [Mass/Vol] 1.62 mg/dL 0.70-1.30 [facility] Comment on above: The validity of the calculated GFR & GFRAA in patients over 70 years has not been determined. Clinical correlation is essential. Serum or plasma low density lipoprotein (LDL) cholesterol measurement (mass/volume)Ordered By: Fatoumata Red on 01-13-2023 Cholesterol in LDL [Mass/Vol] 48 mg/dL 0-130 [facility] Serum or plasma urea nitroge n measurement (mass/volume)Ordered By: Fatoumata Red on 01-13-2023 Urea nitrogen [Mass/Vol] 33 mg/dL 7-18 [facility] Thin prep Papanicolaou smear with manual screeningOrdered By: Fatoumata Red on 01-13-2023 Thin prep Papanicolaou smear with manual screening 10 U/L 15-37 [facility] Thin prep Papanicolaou smear with manual screening 6 5-15 [facility] Urine creatinine measurement (mass/volume)Ordered By: Fatoumata Red on 01-13-2023 Creatinine (U) [Mass/Vol] 42.40 mg/dL NO RANGE EST. [facility] Urine protein measurement (m ass/volume)Ordered By: Fatoumata Red on 01-13-2023 Protein (U) [Mass/Vol] 9.8 mg/dL 0.0-11.8 [facility] Urine protein/creatinine mas s ratioOrdered By: Fatoumata Red on 01-13-2023 Protein/Creatinine (U) [Mass ratio] 231 mg/g CRE 0-200 [facility] Whole blood hemoglobin A1c/t otal hemoglobin ratio (mass fraction)Ordered By: Fatoumata Red on 01-13-2023 HbA1c (Bld) [Mass fraction] 6.9 % 3.8-5.6 [facility] Comment on above: Normal < 5.7 % Predi abetic 5.7 - 6.4 % Diabetic >or= 6.5 % Please note range changes. Basophil percentageon 2021 Basophil percentage 3.5 mg/dL 2.5-4.9 [facility] Work Phone: Chloride [Moles/Vol] 104 mmol/L 98-107 [facility] Work Phone: Glucose [Mass/Vol] 217 mg/dL 74-106 [facility] Work Phone: Comment on above: Glucose result great er than or equal to 200 mg/dLsuggests DIABETES MELLITUS per A.D.A. criteria. Potassium [Moles/Vol] 4.6 mmol/L 3.5-5.1 [facility] Work Phone: Sodium [Moles/Vol] 137 mmol/L 136-145 [facility] Work Phone: Laboratory - Chemistry and C hemistry - challengeon 09-10-2021 CO2 [Moles/Vol] 27.0 mmol/L 21.0-32.0 [facility] Work Phone: Urea nitrogen/Creatinine [Mass ratio] 13.1 mg/mg 10-20 [facility] Work Phone: No Panel Informationon 09-10 Estimated GFR (MDRD) Amer 53 mL/min >60 [facility] Work Phone: Comment on above: GFR Calc Estimated GFR (MDRD) Non-Af Amer 43 mL/min >60 [facility] Work Phone: Comment on above: Non- GFR Calc Serum or plasma albumin bj urement (mass/volume)on 09-10-2021 Albumin [Mass/Vol] 4.0 g/dL 3.2-5.0 [facility] Work Phone: Serum or plasma calcium bj urement (mass/volume)on 09-10-2021 Calcium [Mass/Vol] 8.6 mg/dL 8.5-10.1 [facility] Work Phone: Serum or plasma creatinine m easurement (mass/volume)on 09-10-2021 Creatinine [Mass/Vol] 1.68 mg/dL 0.70-1.30 [facility] Work Phone: Comment on above: The validity of the calculated GFR & GFRAA in patients over 70 years has not been determined. Clinical correlation is essential. Serum or plasma urea nitroge n measurement (mass/volume)on 09-10-2021 Urea nitrogen [Mass/Vol] 22 mg/dL 7-18 [facility] Work Phone: Urine creatinine measurement (mass/volume)on 09-02-2021 Creatinine (U) [Mass/Vol] 78.50 mg/dL NO RANGE EST. [facility] Work Phone: Urine protein measurement (m ass/volume)on 09-02-2021 Protein (U) [Mass/Vol] 15.7 mg/dL 0.0-11.8 [facility] Work Phone: Urine protein/creatinine mas s ratioon 09-02-2021 Protein/Creatinine (U) [Mass ratio] 200 mg/g CRE 0-200 [facility] Work Phone: CNPNon 09-01-2021 CNPN Telephone ([facility]) SHELBI GARCIA ([id number]) 1955 M Date Time Provider Department 09/01/21 JP DENIS During your visit today, we recorded the following information about you: Sue Hannon 09/01/2021 10:[address] Soler's office at [facility] called requesting the last office note from [...] - Fully Assessed Reason for Visit: Information [[id number]] Prescriptions as of 09/01/2021 - apixaban (ELIQUIS) [...] 1 tablet by mouth once daily. - [id number] 3-35-2 mg tab or Capsule Take 1 [...] Encounter Status:Closed by NANCY QUEZADA on [facility]/01/21 [facility] (AMANDA) SHELBI GARCIA ([id number]) 1955 M Date Time Provider Department 07/19/21 [...] lab work to Dr. Dasia Helton his glass mechanic at the [facility]. DO Ronel Fernandes LPN 07/19/2021 [...] 1 tablet by mouth once daily. - R-[id number]-[id number] [id number]-[id number]-[id number] 3-35-2 mg tab or Capsule Take 1 [...] by RONEL ROSEN LPN on 07/19/21 Normal [facility] Basophil percentageon 2021 Bilirubin [Mass/Vol] 0.50 mg/dL 0.20-1.00 [facility] Work Phone: Comment on above: For patients on eltr ombopag therapy, use of Dimension [place] TBIL is not recommended. Cholesterol [Mass/Vol] 63 mg/dL <200 [facility] Work Phone: Comment on above: <200 mg/dL Desirable 200-240 mg/dL Borderline >240 mg/dL High Risk Protein [Mass/Vol] 7.5 g/dL 6.4-8.2 [facility] Work Phone: Triglyceride [Mass/Vol] 93 mg/dL [facility] Work Phone: Comment on above: The drugs N-Acetylcy steine and Metamizole may falsely depress this assay.Serum Triglycerides Reference Interval Normal <150 mg/dL Borderline high 150 - 199 mg/dL High 200 - 499 mg/dL Very High > or = 500 mg/dL CBC W Ordered Manual Differe ntial panel (Bld)on 07-15-2021 Basophils (Bld) [#/Vol] 10*3/uL Normal <0.11 [facility] Comment on above: Order Comment: Speci men Type: BLOOD SPECIMENOrdering Facility: [facility] Address: [address] [place] [address] Performed By: #### 5 7782-5 ####[facility] [id number] [place] [id number] [place] [facility] LABCLIA [id number] [place] [address] [place]#### STFREV ####[facility] LABCLIA [id number] [place] [address] [place] Basophils/100 WBC (Bld) 0.0 % Normal [facility] Comment on above: Order Comment: Speci men Type: BLOOD SPECIMENOrdering Facility: [facility] Address: [address] [place] [address] Performed By: #### 5 7782-5 ####[facility]CL[facility] [id number] [place] [address] [place] [facility] LABCLIA [id number] [place] [address] [place]#### STFREV ####[facility] LABCLIA [id number] [facility] [address] [place] Differential cell count method Nom (Bld) Auto Normal [facility] Comment on above: Order Comment: Speci men Type: BLOOD SPECIMENOrdering Facility: [facility] Address: [address] [place], [place] [id number] Performed By: #### 5 7782-5 ####[facility] ERNCLIA [id number] [place] [address] [place] [facility] LABCLIA [id number] [place] [address] [place]#### STFREV ####[facility] LABCLIA [id number] [place] [address] [place] Eosinophils (Bld) [#/Vol] 0.24 10*3/uL Normal <0.46 [facility] Comment on above: Order Comment: Speci men Type: BLOOD SPECIMENOrdering Facility: [facility] Address: [address] [place] [address] Performed By: #### 5 7782-5 ####[facility]ENTERWNCLIA [id number] [place] [address] [place] [facility] LABCLIA [id number] [place] [address] [place]#### STFREV ####[facility] LABCLIA [id number] [place] [address] [place] Eosinophils/100 WBC (Bld) 10.3 % Normal [facility] Comment on above: Order Comment: Speci men Type: BLOOD SPECIMENOrdering Facility: [facility] Address: [address] [place] [address] Performed By: #### 5 7782-5 ####[facility] SHAWLIA [id number] [address] OF [facility] LABCLIA [id number] [address] STATES [place]#### STFREV ####[facility] LABCLIA [id number] [place] [address] [place] Erythrocyte distribution width (RBC) [Ratio] 13.4 % Normal 11.5-15.0 [facility] Comment on above: Order Comment: Speci men Type: BLOOD SPECIMENOrdering Facility: [facility] Address: [address] [place] [address] Performed By: #### 5 7782-5 ####[facility] SHAWLIA [id number] [address] OF [facility] LABCLIA [id number] [place] [address] [place]#### STFREV ####[facility] LABCLIA [id number] [place] [address] [place] Hematocrit (Bld) [Volume fraction] 36.1 % Low 39.0-51.0 [facility] Comment on above: Order Comment: Speci men Type: BLOOD SPECIMENOrdering Facility: [facility] Address: [address] [place] [address] Performed By: #### 5 7782-5 ####[facility] MILLTOWNCLIA [id number] [address] LABCLIA [id number] [place] [address] [place]#### STFREV ####[facility] LABCLIA [id number] [place] [address] [place] Hemoglobin (Bld) [Mass/Vol] 12.2 g/dL Low 13.0-17.0 [facility] Comment on above: Order Comment: Speci men Type: BLOOD SPECIMENOrdering Facility: [facility] Address: [address] [place] [address] Performed By: #### 5 7782-5 ####[facility] ERNCLIA [id number] [address] LABCLIA [id number] [address] [place]#### STFREV ####[facility] LABCLIA [id number] [place] [address] [place] HYPOGRANULATED PMNS Occasional Normal [facility] Comment on above: Order Comment: Speci men Type: BLOOD SPECIMENOrdering Facility: [facility] Address: [address] [place] [address] Performed By: #### 5 7782-5 ####[facility]ENTERWNCLIA [id number] [address] LABCLIA [id number] [place] [address] [place]#### STFREV ####[facility] LABCLIA [id number] [place] [address] [place] IMMATURE GRAN % 0.4 % Normal [facility] Comment on above: Order Comment: Speci men Type: BLOOD SPECIMENOrdering Facility: [facility] Address: [address] [place] [address] Performed By: #### 5 7782-5 ####[facility] MILLTOWNCLIA [id number] [place] [address] [place] [facility] LABCLIA [id number] [place] [address] [place]#### STFREV ####[facility] LABCLIA [id number] [place] [address] [place] IMMATURE GRAN ABS <0.03 Normal <0.10 [facility] Comment on above: Order Comment: Speci men Type: BLOOD SPECIMENOrdering Facility: [facility] Address: [address] [place], [place] [address] Performed By: #### 5 7782-5 ####[facility] ERNCLIA [id number] [address] OF [facility] LABCLIA [id number] [place] [address] [place]#### STFREV ####[facility] LABCLIA [id number] [place] [address] [place] Lymphocytes (Bld) [#/Vol] 1.65 10*3/uL Normal 1.00-4.00 [facility] Comment on above: Order Comment: Speci men Type: BLOOD SPECIMENOrdering Facility: [facility] Address: [address] [place] [address] Performed By: #### 5 7782-5 ####[facility]WNCLIA [id number] [address] STATES OF [facility] LABCLIA [id number] [place] [address] [place]#### STFREV ####[facility] LABCLIA [id number] [place] [address] [place] Lymphocytes/100 WBC (Bld) 70.5 % Normal [facility] Comment on above: Order Comment: Speci men Type: BLOOD SPECIMENOrdering Facility: [facility] Address: [address] [place] [address] Performed By: #### 5 7782-5 ####[facility] [id number] [address] LABCLIA [id number] [place] [address] [place]#### STFREV ####[facility] LABCLIA [id number] [place] [address] [place] MCH (RBC) [Entitic mass] 32.7 pg Normal 26.0-34.0 [facility] Comment on above: Order Comment: Speci men Type: BLOOD SPECIMENOrdering Facility: [facility] Address: [address] [place] [address] Performed By: #### 5 7782-5 ####[facility] [id number] [address] OF [facility] LABCLIA [id number] [place] [address] [place]#### STFREV ####[facility] LABCLIA [id number] [place] [address] [place] MCHC (RBC) [Mass/Vol] 33.8 g/dL Normal 30.5-36.0 [facility] Comment on above: Order Comment: Speci men Type: BLOOD SPECIMENOrdering Facility: [facility] Address: [address] [place], [place] [address] Performed By: #### 5 7782-5 ####[facility] [id number] [place] [address] [place] [facility] LABCLIA [id number] [place] [address] [place]#### STFREV ####[facility] LABCLIA [id number] [place] [address] [place] MCV (RBC) [Entitic vol] 96.8 fL Normal 80.0-100.0 [facility] Comment on above: Order Comment: Speci men Type: BLOOD SPECIMENOrdering Facility: [facility] Address: [address] [place], [place] [address] Performed By: #### 5 7782-5 ####[facility] ERNCLIA [id number] [place] [address] [place] [facility] LABCLIA [id number] [address] [place]#### STFREV ####[facility] LABCLIA [id number] [address] [place] Monocytes (Bld) [#/Vol] 0.05 10*3/uL Normal <0.87 [facility] Comment on above: Order Comment: Speci men Type: BLOOD SPECIMENOrdering Facility: [facility] Address: [address] [place] [address] Performed By: #### 5 7782-5 ####[facility] ERNCLIA [id number] [place] [address] [place] [facility] LABCLIA [id number] [place] [address] [place]#### STFREV ####[facility] LABCLIA [id number] [place] [address] [place] Monocytes/100 WBC (Bld) 2.1 % Normal C [facility] Comment on above: Order Comment: Speci men Type: BLOOD SPECIMENOrdering Facility: [facility] Address: [address] [place] [address] Performed By: #### 5 7782-5 ####[facility]ENTERWDCLIA [id number] [address] STATES OF [facility] LABCLIA [id number] [place] [address] [place]#### STFREV ####[facility] LABCLIA [id number] [place] [address] [place] Neutrophils (Bld) [#/Vol] 0.39 10*3/uL Low 1.45-7.50 [facility] Comment on above: Order Comment: Speci men Type: BLOOD SPECIMENOrdering Facility: [facility] Address: [address] [place], [place] [address] Performed By: #### 5 7782-5 ####[facility] [id number] [address] STATES OF [facility] LABCLIA [id number] [address] [place]#### STFREV ####[facility] LABCLIA [id number] [address] [place] Neutrophils/100 WBC (Bld) 16.7 % Normal [facility] Comment on above: Order Comment: Speci men Type: BLOOD SPECIMENOrdering Facility: [facility] Address: [address] [place], [place] [address] Performed By: #### 5 7782-5 ####[facility] MILLWNCLIA [id number] [place] [address] [place] [facility] LABCLIA [id number] [place] [address] [place]#### STFREV ####[facility] LABCLIA [id number] [place] [address] [place] Nucleated RBC (Bld) [#/Vol] 0.03 10*3/uL High <0.01 [facility] Comment on above: Order Comment: Speci men Type: BLOOD SPECIMENOrdering Facility: [facility] Address: [address] [place] [address] Performed By: #### 5 7782-5 ####[facility] SHAWLIA [id number] [address] LABCLIA [id number] [place] [address] [place]#### STFREV ####[facility] LABCLIA [id number] [place] [address] [place] Nucleated RBC/100 WBC (Bld) [Ratio] 1.3 /100 WBC Normal [facility] Comment on above: Order Comment: Speci men Type: BLOOD SPECIMENOrdering Facility: [facility] Address: [address] [place] [address] Performed By: #### 5 7782-5 ####[facility]ENTERWNCLIA [id number] [address] LABCLIA [id number] [place] [address] [place]#### STFREV ####[facility] LABCLIA [id number] [place] [address] [place] PLATELET ESTIMATE Adequate Normal [facility] Comment on above: Order Comment: Speci men Type: BLOOD SPECIMENOrdering Facility: [facility] Address: [address] [place], [place] [address] Performed By: #### 5 7782-5 ####[facility] MILLTOWNCLIA [id number] [place] [address] [place] [facility] OF [facility] LABCLIA [id number] [place] [address] [place]#### STFREV ####[facility] LABIA [id number] [place] [address] [place] Platelet mean volume (Bld) [Entitic vol] 10.1 fL Normal 9.0-12.7 [facility] Comment on above: Order Comment: Speci men Type: BLOOD SPECIMENOrdering Facility: [facility] Address: [address] [place], [place] [address] Performed By: #### 5 7782-5 ####[facility]ENTERWNCLIA [id number] [address] LABCLIA [id number] [address] [place]#### STFREV ####[facility] LABCLIA [id number] [place] [address] [place] Platelets (Bld) [#/Vol] 173 10*3/uL Normal 150-400 [facility] Comment on above: Order Comment: Speci men Type: BLOOD SPECIMENOrdering Facility: [facility] Address: [address] [place], [place] [address] Performed By: #### 5 7782-5 ####[facility] MILLTOWNCLIA [id number] [address] STATES OF AMERICAA[facility] LABCLIA [id number] [place] [address] [place]#### STFREV ####[facility] LABCLIA [id number] [place] [address] [place] Polychromasia LM Ql (Bld) Slight Normal [facility] Comment on above: Order Comment: Speci men Type: BLOOD SPECIMENOrdering Facility: [facility] Address: [address] [place] [address] Performed By: #### 5 7782-5 ####[facility] [id number] [place] [address] [place] [facility] LABCLIA [id number] [place] [address] [place]#### STFREV ####[facility] LABIA [id number] [place] [address] [place] RBC (Bld) [#/Vol] 3.73 10*6/uL Low 4.20-6.00 [facility] Comment on above: Order Comment: Speci men Type: BLOOD SPECIMENOrdering Facility: [facility] Address: [address] [place] [address] Performed By: #### 5 7782-5 ####[facility] [id number] [place] [address] [place] [facility] LABCLIA [id number] [place] [address] [place]#### STFREV ####[facility] LABCLIA [id number] [place] [address] [place] RED CELL MORPH Unremarkable Normal [facility] Comment on above: Order Comment: Speci men Type: BLOOD SPECIMENOrdering Facility: [facility] Address: [address] [place], [place] [address] Performed By: #### 5 7782-5 ####[facility] MILDREDWNCLIA [id number] [address] LABCLIA [id number] [place] [address] [place]#### STFREV ####[facility] LABCLIA [id number] [place] [address] [place] WBC (Bld) [#/Vol] 2.31 10*3/uL Low 3.70-11.00 [facility] Comment on above: Order Comment: Speci men Type: BLOOD SPECIMENOrdering Facility: [facility] Address: [address] [place] [address] Performed By: #### 5 7782-5 ####[facility] MILDREDBHC VALLE VISTA HOSPITALLIA [id number] [address] LABCLIA [id number] [place] [address] [place]#### STFREV ####[facility] LABCLIA [id number] [place] [address] [place] Direct bilirubinon 2 Bilirubin.direct [Mass/Vol] 0.18 mg/dL 0.00-0.30 [facility] Work Phone: Laboratory - Chemistry and C hemistry - challengeon 07-15-2021 ALP [Catalytic activity/Vol] 92 U/L 45-117 [facility] Work Phone: ALT [Catalytic activity/Vol] 142 U/L 16-61 [facility] Work Phone: Globulin (S) [Mass/Vol] 3.8 g/dL 2.2-4.2 W [facility] Work Phone: No Panel Informationon 07-15 Estimated GFR (MDRD) Amer 48 mL/min >60 [facility] Work Phone: Comment on above: GFR Calc Estimated GFR (MDRD) Non-Af Amer 39 mL/min >60 [facility] Work Phone: Comment on above: Non- GFR Calc PATHOLOGIST INTERPRETATION C BC/DIFFon 07-15-2021 Service Dispatcher review Best (Unsp spec) [Interp] Reviewed by Merari Malcolm M.D. Normal [facility] Comment on above: Order Comment: Speci men Type: BLOOD SPECIMENOrdering Facility: [facility] Address: [address] [place] [address] Performed By: #### 5 7782-5 ####[facility] ERNCLIA [id number] [address] LABCLIA [id number] [place] [address] [place]#### STFREV ####[facility] LABCLIA [id number] [place] [address] [place] STAFF REVIEW, CBCDIF Normal [facility] Comment on above: Order Comment: Speci men Type: BLOOD SPECIMENOrdering Facility: [facility] Address: [address] [place] [address] Result Comment: Norm ocytic anemia with slight polychromasia Leukopenia with absolute neutropenia Performed By: #### 5 7782-5 ####[facility] MILLTOWNCLIA [id number] [address] OF [facility] LABCLIA [id number] [place] [address] [place]#### STFREV ####[facility] LABCLIA [id number] [place] [address] [place] Serum or plasma albumin bj urement (mass/volume)on 07-15-2021 Albumin [Mass/Vol] 3.7 g/dL 3.2-5.0 [facility] Work Phone: Serum or plasma cholesterol in HDL measurement (mass/volume)on 07-15-2021 Cholesterol in HDL [Mass/Vol] 30 mg/dL [facility] Work Phone: Comment on above: The drugs N-Acetylcy steine and Metamizole may falsely depress this assay. Reference Range HDL <40 mg/dL Low HDL Cholesterol HDL >or= 60 mg/dL High HDL Cholesterol Serum or plasma cholesterol in VLDL measurement (mass/volume)on 07-15-2021 Cholesterol in VLDL [Mass/Vol] 19 mg/dL 5-40 [facility] Work Phone: Serum or plasma creatinine m easurement (mass/volume)on 07-15-2021 Creatinine [Mass/Vol] 1.83 mg/dL 0.70-1.30 [facility] Work Phone: Comment on above: The validity of the calculated GFR & GFRAA in patients over 70 years has not been determined. Clinical correlation is essential. Serum or plasma low density lipoprotein (LDL) cholesterol measurement (mass/volume)on 07-15-2021 Cholesterol in LDL [Mass/Vol] 14 mg/dL 0-130 [facility] Work Phone: Thin prep Papanicolaou smear with manual screeningon 07-15-2021 Thin prep Papanicolaou smear with manual screening 48 U/L 15-37 [facility] Work Phone: Basic metabolic 2000 panelon 07-14-2021 Anion gap [Moles/Vol] 10 mmol/L Normal 9-18 [facility] Comment on above: Order Comment: Speci men Type: BLOOD SPECIMENOrdering Facility: [facility] Address: [address] [place] [address] Performed By: #### 2 4321-2 ####[facility] HOSPITALJake [id number] [place] [address] [place] Calcium [Mass/Vol] 8.6 mg/dL Normal 8.5-10.2 [facility] Comment on above: Order Comment: Speci men Type: BLOOD SPECIMENOrdering Facility: [facility] Address: [address] [place] [address] Performed By: #### 2 4321-2 ####[facility] MIKAEL MILLTOWNCLIA [id number] [place] [address] [place] Chloride [Moles/Vol] 101 mmol/L Normal 97-105 [facility] Comment on above: Order Comment: Speci men Type: BLOOD SPECIMENOrdering Facility: [facility] Address: [address] [place] [address] Performed By: #### 2 4321-2 ####[facility] CENTERWMOOSELIA [id number] [place] [address] [place] CO2 [Moles/Vol] 23 mmol/L Normal 22-30 [facility] Comment on above: Order Comment: Speci men Type: BLOOD SPECIMENOrdering Facility: [facility] Address: [address] [place] [address] Performed By: #### 2 4321-2 ####[facility] MILLWNCLIA [id number] [place] [address] [place] Creatinine [Mass/Vol] 1.49 mg/dL High 0.73-1.22 [facility] Comment on above: Order Comment: Speci men Type: BLOOD SPECIMENOrdering Facility: [facility] Address: [address] [place] [address] Performed By: #### 2 4321-2 ####[facility] MILLWNCLIA [id number] [place] [address] [place] ESTIMATED GLOMERULAR FILTRATION RATE 51 mL/min/1.73m??? Low >=60 [facility] Comment on above: Order Comment: Tori pappas Type: BLOOD SPECIMENOrdering Facility: [facility] Address: [address] [place] [address] Result Comment: Brandi mated Glomerular Filtration Rate [...] Performed By: #### 2 4321-2 ####[facility] [id number] [place] [address] [place] Glucose [Mass/Vol] 149 mg/dL High 74-99 [facility] Comment on above: Order Comment: Tori pappas Type: BLOOD SPECIMENOrdering Facility: [facility] Address: [address] [place] [address] Result Comment: The [place] Diabetes Association (ADA) provides guidance for cutoff [...] Standards of Medical Care in Diabetes 2016, [place] [employer]. Diabetes Care. 2016.39(Suppl 1). Performed By: #### 2 4321-2 ####[facility]ITALA [id number] [place] [address] [place] Potassium [Moles/Vol] 3.8 mmol/L Normal 3.7-5.1 [facility] Comment on above: Order Comment: Tori pappas Type: BLOOD SPECIMENOrdering Facility: [facility] Address: [address] [place] [address] Performed By: #### 2 4321-2 ####[facility] CENTERWNCLIA [id number] [place] [address] [place] Sodium [Moles/Vol] 134 mmol/L Low 136-144 [facility] Comment on above: Order Comment: Speci men Type: BLOOD SPECIMENOrdering Facility: [facility] Address: [address] [place] [address] Performed By: #### 2 4321-2 ####[facility]ENTERWDCLIA [id number] [place] [address] [place] Urea nitrogen [Mass/Vol] 21 mg/dL Normal 9-24 [facility] Comment on above: Order Comment: Speci men Type: BLOOD SPECIMENOrdering Facility: [facility] Address: [address] [place] [address] Performed By: #### 2 4321-2 ####[facility] SHAWLIA [id number] [place] [address] [place] Anion gap [Moles/Vol] 10 mmol/L 9 - 18 mmol/L [facility] Calcium [Mass/Vol] 8.6 mg/dL 8.5 - 10. 2 mg/dL [facility] Chloride [Moles/Vol] 101 mmol/L 97 - 10 5 mmol/L [facility] CO2 [Moles/Vol] 23 mmol/L 22 - 30 mmol/L [facility] Creatinine [Mass/Vol] 1.49 mg/dL High 0.73 - 1.22 mg/dL [facility] Estimated Glomerular Filtration Rate 51 mL/min/1.73m Low >=60 mL/min/1.73m [facility] Glucose [Mass/Vol] 149 mg/dL High 74 - 99 mg/dL [facility] Potassium [Moles/Vol] 3.8 mmol/L 3.7 - 5.1 mmol/L [facility] Sodium [Moles/Vol] 134 mmol/L Low 136 - 144 mmol/L [facility] Urea nitrogen [Mass/Vol] 21 mg/dL 9 - 24 mg/dL [facility] CBC W Auto Differential pane l (Bld)on 07-14-2021 Basophils/100 WBC (Bld) 1.0 % Normal C [facility] Comment on above: Order Comment: Speci men Type: BLOOD SPECIMENOrdering Facility: [facility] Address: [address] [place] [address] Performed By: #### 5 7021-8 ####[facility] MILLTOWNCLIA [id number] [address] LABORATORYCLIA [id number] [place] [address] [place] [facility] Differential cell count method Nom (Bld) Manual Normal [facility] Comment on above: Order Comment: Speci men Type: BLOOD SPECIMENOrdering Facility: [facility] Address: [address] [place] [address] Performed By: #### 5 7021-8 ####[facility] MILLTOWNCLIA [id number] [address] LABORATORYCLIA [id number] [place] [address] [place] [facility] Eosinophils (Bld) [#/Vol] 0.14 10*3/uL Normal <0.46 [facility] Comment on above: Order Comment: Speci men Type: BLOOD SPECIMENOrdering Facility: [facility] Address: [address] [place] [address] Performed By: #### 5 7021-8 ####[facility] MILLTOWNCLIA [id number] [address] LABORATORYCLIA [id number] [address] [place] Eosinophils/100 WBC (Bld) 4.0 % Normal [facility] Comment on above: Order Comment: Speci men Type: BLOOD SPECIMENOrdering Facility: [facility] Address: [address] [place] [address] Performed By: #### 5 7021-8 ####[facility] MILDREDTOWMOOSELIA [id number] [address] LABORATORYCLIA [id number] [place] [address] [place] [facility] Erythrocyte distribution width (RBC) [Ratio] 13.6 % Normal 11.5-15.0 [facility] Comment on above: Order Comment: Speci men Type: BLOOD SPECIMENOrdering Facility: [facility] Address: [address] [place] [address] Performed By: #### 5 7021-8 ####[facility] ERMOOSELIA [id number] [address] LABORATORYCLIA [id number] [address] STATES OF [facility] Hematocrit (Bld) [Volume fraction] 35.1 % Low 39.0-51.0 [facility] Comment on above: Order Comment: Speci men Type: BLOOD SPECIMENOrdering Facility: [facility] Address: [address] [place] [address] Performed By: #### 5 7021-8 ####[facility] MILDREDEILEENLIA [id number] [address] LABORATORYCLIA [id number] [place] [address] [place] Hemoglobin (Bld) [Mass/Vol] 11.8 g/dL Low 13.0-17.0 [facility] Comment on above: Order Comment: Speci men Type: BLOOD SPECIMENOrdering Facility: [facility] Address: [address] [place] [address] Performed By: #### 5 7021-8 ####[facility] MILLWNCLIA [id number] [address] LABORATORYCLIA [id number] [place] [address] [place] Lymphocytes (Bld) [#/Vol] 2.56 10*3/uL Normal 1.00-4.00 [facility] Comment on above: Order Comment: Speci men Type: BLOOD SPECIMENOrdering Facility: [facility] Address: [address] [place] [address] Performed By: #### 5 7021-8 ####[facility]A [id number] [address] LABORATORYCLIA [id number] [place] [address] [place] Lymphocytes/100 WBC (Bld) 74.0 % Normal [facility] Comment on above: Order Comment: Speci men Type: BLOOD SPECIMENOrdering Facility: [facility] Address: [address] [place] [address] Performed By: #### 5 7021-8 ####[facility] [id number] [address] LABORATORYCLIA [id number] [place] [address] [place] MCH (RBC) [Entitic mass] 32.6 pg Normal 26.0-34.0 [facility] Comment on above: Order Comment: Speci men Type: BLOOD SPECIMENOrdering Facility: [facility] Address: [address] [place] [address] Performed By: #### 5 7021-8 ####[facility] SHAWLIA [id number] [address] LABORATORYCLIA [id number] [place] [address] [place] MCHC (RBC) [Mass/Vol] 33.6 g/dL Normal 30.5-36.0 [facility] Comment on above: Order Comment: Speci men Type: BLOOD SPECIMENOrdering Facility: [facility] Address: [address] [place] [address] Performed By: #### 5 7021-8 ####[facility]ENTERWNCLIA [id number] [address] LABORATORYCLIA [id number] [place] [address] [place] MCV (RBC) [Entitic vol] 97.0 fL Normal 80.0-100.0 [facility] Comment on above: Order Comment: Speci men Type: BLOOD SPECIMENOrdering Facility: [facility] Address: [address] [place] [address] Performed By: #### 5 7021-8 ####[facility]A [id number] [address] LABORATORYCLIA [id number] [place] [address] [place] Neutrophils (Bld) [#/Vol] 0.73 10*3/uL Low 1.45-7.50 [facility] Comment on above: Order Comment: Speci men Type: BLOOD SPECIMENOrdering Facility: [facility] Address: [address] [place] [address] Performed By: #### 5 7021-8 ####[facility] SHAWLIA [id number] [address] LABORATORYCLIA [id number] [address] [place] Neutrophils/100 WBC (Bld) 21.0 % Normal [facility] Comment on above: Order Comment: Speci men Type: BLOOD SPECIMENOrdering Facility: [facility] Address: [address] [place], [place] [address] Performed By: #### 5 7021-8 ####[facility] MILLBERNARDAWMOOSELIA [id number] [address] LABORATORYCLIA [id number] [place] [address] [place] Nucleated RBC/100 WBC (Bld) [Ratio] 0.0 /100 WBC Normal [facility] Comment on above: Order Comment: Speci men Type: BLOOD SPECIMENOrdering Facility: [facility] Address: [address] [place] [address] Performed By: #### 5 7021-8 ####[facility] MILDREDEILEENLIA [id number] [address] LABORATORYCLIA [id number] [place] [address] [place] PLATELET ESTIMATE Decreased Normal [facility] Comment on above: Order Comment: Speci men Type: BLOOD SPECIMENOrdering Facility: [facility] Address: [address] [place] [address] Performed By: #### 5 7021-8 ####[facility] MILDREDEILEENLIA [id number] [address] LABORATORYCLIA [id number] [place] [address] [place] Platelet mean volume (Bld) [Entitic vol] 11.1 fL Normal 9.0-12.7 [facility] Comment on above: Order Comment: Speci men Type: BLOOD SPECIMENOrdering Facility: [facility] Address: [address] Performed By: #### 5 7021-8 ####[facility] MILLTOWNCLIA [id number] [address] LABORATORYCLIA [id number] [place] [address] [place] Platelets (Bld) [#/Vol] 102 10*3/uL Low 150-400 [facility] Comment on above: Order Comment: Speci men Type: BLOOD SPECIMENOrdering Facility: [facility] Address: [address] [place] [address] Result Comment: No c lot detected Performed By: #### 5 7021-8 ####[facility]A [id number] [address] LABORATORYCLIA [id number] [place] [address] [place] RBC (Bld) [#/Vol] 3.62 10*6/uL Low 4.20-6.00 [facility] Comment on above: Order Comment: Speci men Type: BLOOD SPECIMENOrdering Facility: [facility] Address: [address] [place] [address] Performed By: #### 5 7021-8 ####[facility] [id number] [address] LABORATORYCLIA [id number] [place] [address] [place] RED CELL MORPH Reviewed. Unremarkable Normal [facility] Comment on above: Order Comment: Speci men Type: BLOOD SPECIMENOrdering Facility: [facility] Address: [address] [place] [address] Performed By: #### 5 7021-8 ####[facility] [id number] [address] LABORATORYCLIA [id number] [place] [address] [place] WAM - ABS BASO 0.03 k/uL Normal <0.11 [facility] Comment on above: Order Comment: Speci men Type: BLOOD SPECIMENOrdering Facility: [facility] Address: [address] [place] [address] Performed By: #### 5 7021-8 ####[facility] MIKAEL MILLTOWNCLIA [id number] [address] LABORATORYCLIA [id number] [place] [address] [place] WAM - ABS MONO 0.00 k/uL Normal <0.87 [facility] Comment on above: Order Comment: Speci men Type: BLOOD SPECIMENOrdering Facility: [facility] Address: [address] [place] [address] Performed By: #### 5 7021-8 ####[facility] MILLTOWNCLIA [id number] [address] LABORATORYCLIA [id number] [place] [address] [place] WAM - MONO% 0.0 % Normal [facility] Comment on above: Order Comment: Speci men Type: BLOOD SPECIMENOrdering Facility: [facility] Address: [address] [place] [address] Performed By: #### 5 7021-8 ####[facility] MIKAEL MILDREDBERNARDAWNCLIA [id number] [address] LABORATORYCLIA [id number] [place] [address] [place] WAM ABSOLUTE NRBC <0.01 Normal <0.01 [facility] Comment on above: Order Comment: Speci men Type: BLOOD SPECIMENOrdering Facility: [facility] Address: [address] [place] [address] Performed By: #### 5 7021-8 ####[facility] MIKAEL MILLTOWNCLIA [id number] [place] [address] [facility] LABORATORYCLIA [id number] [place] [address] [place] WBC (Bld) [#/Vol] 3.46 10*3/uL Low 3.70-11.00 [facility] Comment on above: Order Comment: Speci men Type: BLOOD SPECIMENOrdering Facility: [facility] Address: [address] [phone] Performed By: #### 5 7021-8 ####[facility] MIKAEL MILLTOWNCLIA [id number] [address] LABORATORYCLIA [id number] [address] [place] CNOVSPon 07-14-2021 CNOVSP Visit (SP) Office (HEMJESUS ALBERTO) SHELBI GARCIA ([id number]) 1955 M Date Time Provider Department 07/14/21 [...] PMH significant for type 2 diabetes, CAD (DC x3-most recent 2010; each treated with PCI/stent--5 stents total--most recent 2010), atrial fibrillation, CKD, RA, DVT (IVC) and sensory neuropathy. Patient was referred to a glass mechanic for joint pain and elevated inflammatory markers. [...] endorsed he got in touch with his vet assistant office and was advised he could stop [...] No jaundice or rash. No petechiae. 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 No focal motor [...] Abs Lymph 1.00 - 4.00 k/uL 3.51 Garfield% % 5.5 Abs Garfield <0.87 k/uL 0.46 Eosin% % 3.3 Abs Eosin <0.46 k/uL 0.28 Baso% % 0.8 Abs Baso <0.11 k/uL 0.07 Nucleated Reds 0 /100 WBC 0.0 Absolute nRBC <0.01 k/uL <0.01 Diff Type Auto Diff Pathologist Interpretatio (more content not included)... Normal [facility] [place] 07-14-2021 CNPN Telephone (HEMJESUS ALBERTO) SHELBI GARCIA ([id number]) 1955 M Date Time Provider Department 07/14/21 [...] [C90.00] Order(s):CBC + DIFF [SQCBCDIF] Order #: [id number] FUTURE BASIC METABOLIC PNL [SQBMP] Order #: [id number] FUTURE Prescriptions as of 07/14/2021 - apixaban [...] 1 tablet by mouth once daily. - D-Sjkicyk-K8 Okts-Askmqa-L93 3-35-2 mg tab or Capsule Take 1 [...] Status:Closed by DORENE CHEN LPN on 07/14/21 [facility] Telephone (AMANDA) SHELBI GARCIA ([id number]) 1955 M Date Time Provider Department 07/14/21 [...] WITH CBC AND DIFF [SQSTREV] Order #: [id number] FUTURE Prescriptions as of 07/15/2021 - apixaban [...] 1 tablet by mouth once daily. - U-Rqekoml-E3 Yblz-Avziqp-X00 3-35-2 mg tab or Capsule Take 1 [...] Status:Closed by NANCY QUEZADA on 07/15/21 Normal [facility] PT panel Coag (PPP)on 2021 INR Coag (PPP) [Relative time] 1.0 {INR} Normal 0.9-1.3 [facility] Comment on above: Order Comment: Tori pappas Type: BLOOD SPECIMENOrdering Facility: [facility] Address: [address] [place] [id number] Result Comment: Radha min K Antagonist (VKA) Therapeutic Range: INR 2 to 3 (Target INR of 2.5) Note: For patients treated with VKA drugs, such as warfarin, the [place] [employer] 2012 Guideline recommends [...] Chest 2012, 141:7S-47S Janiya RA, et al. [facility] 2017, 70: 252-289 Performed By: #### 3 4528-0, 98397-5 ####[facility] LABIA [id number] [place] [id number] [place] PT Coag (PPP) [Time] 10.3 s Normal 9.7-13.0 [facility] Comment on above: Order Comment: Tori men Type: BLOOD SPECIMENOrdering Facility: [facility] Address: [address] [place] [address] Performed By: #### 3 4528-0, 10726-9 ####[facility] LABCLIA [id number] [place] [id number] [place] aPTT PPPon 07-14-2021 aPTT Coag (PPP) [Time] 25.6 s Normal 23.0-32.4 [facility] Comment on above: Order Comment: Speci men Type: BLOOD SPECIMENOrdering Facility: [facility] Address: [address] [place] [address] Performed By: #### 3 4528-0, 11253-0 ####[facility] LABCLIA [id number] [address] [id number] [facility] CNPNon 06-24-2021 CNPN Telephone (HEMAWS) SHELBI GARCIA ([id number]) 1955 M Date Time Provider Department 06/24/21 JP DENIS During your visit today, we recorded the following information about you: Sangeetha Boudreaux Pss 06/24/2021 2:45 PM Signed Patient is calling for his bone marrow biopsy results. Please advise the patient. Dorene Chen LPN 06/24/2021 3:00 PM Signed Bone marrow bx was done yesterday at [facility], called pt to let him know we wont have path results back for a week to 10 days. Pt voices understanding. Dorene Pickett 07/13/2021 10:21 AM Signed Patient called for his bone marrow biopsy results, can be reached at [phone] Thank you Freida Quezada LPN 07/13/2021 12:11 [...] 1 tablet by mouth once daily. - N-Lnrjube-S9 Nqcc-Bthkla-P68 3-35-2 mg tab or Capsule Take 1 [...] by DORENE CHEN LPN on 06/24/21 Normal [facility] INR in Blood by Coagulation assayon 06-23-2021 INR Coag (Bld) [Relative time] 0.9 {INR} [facility] Work Phone: Laboratory - Coagulationon 0 06-23-2021 aPTT Coag (Bld) [Time] 27.9 s 24.1-36.2 [facility] Work Phone: PT Coag (PPP) [Time] 11.9 s 11.7-14.9 [facility] Platelets bldon 06-23-2021 Platelets (Bld) [#/Vol] 217 10*3/uL 150-450 [facility] Work Phone: CNPNon 06-22-2021 CNPN Telephone (HEMAWS) SHELBI GARCIA ([id number]) 1955 M Date Time Provider Department 06/22/21 JP DENIS During your visit today, we recorded the following information about you: Sangeetha Pickett 06/22/2021 10:52 AM Signed Patient is calling to let Dr Denis know that PCP office ordered him Prednisone 5 mg 2 tablets a day for swelling in his fingers two weeks ago. Patients last dose was 06/19 he is scheduled at [facility] tomorrow for bone biopsy and wanted to [...] 1 tablet by mouth once daily. - L-Ikbptml-F4 Pdca-Tiljtj-Y60 3-35-2 mg tab or Capsule Take 1 [...] Status:Closed by NANCY QUEZADA on 06/22/21 Normal [facility] 06-16-2021 [facility] Telephone (HEMAWS) RADHASHELBI Mateusz ([id number]) 1955 M Date Time Provider Department 06/16/21 [...] instructed to do so by radiology at [facility]. DO Nancy Fernandes LPN 06/16/2021 8:39 AM Signed Spoke with pt. He is taking Eliquis 5 mg BID. ( added to medication list) Pt. Started holding the Eliquis, ASA, and Plavix yesterday as instructed by [facility] radiology dept. AIDAN Vergara DO 06/16/2021 8:43 [...] 1 tablet by mouth once daily. - I-Kazyibv-P3 Zxvy-Jlxiur-S96 3-35-2 mg tab or Capsule Take 1 [...] Status:Closed by DORENE CHEN LPN on 06/16/21 [facility] CNOVSPon 06-15-2021 CNOVSP Visit (SP) Office (HEMAWS) SHELBI GARCIA ([id number]) 1955 M Date Time Provider Department 06/15/21 [...] PMH significant for type 2 diabetes, CAD (DC x3-most recent 2010; each treated with PCI/stent--5 stents total--most recent 2010), atrial fibrillation, CKD, RA, DVT (IVC) and sensory neuropathy. Patient was referred to a glass mechanic for joint pain and elevated inflammatory markers. [...] endorses he got in touch with his vet assistant office and was advised he could stop [...] No jaundice or rash. No petechiae. 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 No focal motor [...] Abs Lymph 1.00 - 4.00 k/uL 3.51 Garfield% % 5.5 Abs Garfield <0.87 k/uL 0.46 Eosin% % 3.3 Abs Eosin <0.46 k/uL 0.28 Baso% % 0.8 Abs Baso <0.11 k/uL 0.07 Nucleated Reds 0 /100 WBC 0.0 Absolute nRBC <0.01 k/uL <0.01 Diff Type Auto Diff Pathologist Interpretation, CBCDIF SEE COMMENT Pathologist (DANIELLE) The Patholog (more content not included)... Normal [facility] [place] [facility]-15-2021 [facility] (HEMAWS) SHELBI GARCIA ([id number]) 1955 M Date Time Provider Department 06/15/21 JP DENIS HEMAWS During your visit today, we recorded the following information about you: Dasia Quintero Pss 06/15/2021 10:41 AM Signed Please write order for CT guided bone marrow biopsy. Patient is scheduled at [facility] on 06/23 @ 9:00 AM. Patient aware to arrive by 8:00, NPO after midnight and that he will need a local hazmat driver, and someone to stay with him for 24 hours. Patient also aware to bring current med list to appt and to stay off plavix for 7 days prior to appt-today would be his last dose. Sara Roy Pss 06/15/2021 10:47 AM Signed Ashly from [facility] called requesting an order for procedure, HANDP within 30 days, order for labs - PT, PTT, INR and any imaging from patient. Please fax to [phone] Attn: Ashly. Ronel Rosen LPN 06/15/2021 11:00 AM Signed Please file orders and I will fax to [facility]. Ronel Denis DO 06/15/2021 1:19 PM Signed Thank you. Orders filed. DO Ronel Fernandes LPN 06/15/2021 2:04 PM Signed Awaiting completion of today's OV note before faxing all information to [facility]. Ronel Quezada LPN 06/16/2021 8:46 AM Signed [...] [C90.00] Order(s):IMAGING GUIDED BIOPSY BONE MARROW (HEMATOLOGY) [2023241] Order #: [id number] PROTHROMBIN TIME/PT [SQPT] Order #: [id number] FUTURE ACTIVATED PTT [SQPTT] Order #: [id number] FUTURE Prescriptions as of 06/16/2021 - apixaban [...] 1 tablet by mouth once daily. - E-Ydeekoi-Y7 Ohub-Ogqpxn-I36 3-35-2 mg tab or Capsule Take 1 [...] Status:Closed by NANCY QUEZADA on 06/16/21 Normal [facility] CT WB SKULL TO KNEE WO IVCON on 06-10-2021 CT WB SKULL TO KNEE WO IVCON * * *Final Report* * * DATE OF EXAM: Jun 10 2021 2:31PM [facility] 2096 - CT WB SKULL TO KNEE [...] Mild-moderate atherosclerotic calcifications of the imaged aorta. Extrusion Process Operator (topogram) images: No additional findings. IMPRESSION: No CT evidence of multiple myeloma. Airplane Engineer: HALIMA Transcribe Date/Time: Jun 10 2021 2:52P Dictated by : REGGIE NASH DO This examination was interpreted and the report reviewed and electronically signed by: REGGIE NASH DO on Jun 10 2021 3:09PM EST [id number] Normal [facility] CT WHOLE BODY SKULL TO KNEE WO IVCONon 06-10-2021 [facility] Monoclon Prot 24 Uron 2021 UMPA Interpretation SEE COMMENT Normal [facility] Comment on above: Result Comment: Atyp ical restricted bands are present in the IgA and lambda regions, with an additional atypical band in the lambda region. 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 Performed By: #### U 24MPA, UEPG24 ####[facility] [address] AveCZachary [place] [phone] UMPA Result M protein is present. Critically abnormal No M protein is identified. [facility] Comment on above: Performed By: #### U 24MPA, UEPG24 ####[facility] [address], [place] [phone] [facility] Staff Review Reviewed by Sirisha Wolfe MD, PhD. ([id number]) Normal [facility] Comment on above: Performed By: #### U 24MPA, UEPG24 ####[facility] [address] [place] [phone] Period / Volumeon 05-30-2021 Collection End Date [facility] Comment on above: Performed By: #### U 24MPA, UEPG24 ####[facility] [address] Av[address], [place] [phone] Collection End Time 714 [facility] Comment on above: Performed By: #### U 24MPA, UEPG24 ####[facility] [address] AveCMad[place], [place] [phone] Collection Start Date [facility] Comment on above: Performed By: #### U 24MPA, UEPG24 ####[facility] [address] AveCMad[place], [place] [phone] Collection Start Time 914 [facility] Comment on above: Performed By: #### U 24MPA, UEPG24 ####[facility] [address] AveClevelandHyd[place], [place] [phone] Period 22 hr Normal [facility] Comment on above: Performed By: #### U 24MPA, UEPG24 ####[facility] AveClevelandHyd[place], [place] [phone] Volume 2375 mL Normal [facility] Comment on above: Performed By: #### U 24MPA, UEPG24 ####[facility] AveCMad[address], [place] [phone] Prot Elect Ur 24 hron 2021 Albumin, 24 hr 41.9 % Normal [facility] Comment on above: Performed By: #### U 24MPA, UEPG24 ####[place] [address] [address] [place] [phone] Alpha 1 Globul, 24hr 4.3 % Normal [facility] Comment on above: Performed By: #### U 24MPA, UEPG24 ####[facility]ClevelMichael [place] [phone] Alpha 2 Globul, 24hr 13.1 % Normal [facility] Comment on above: Performed By: #### U 24MPA, UEPG24 ####[facility] [address] AveClevelandJenn[place] [phone] Beta Globulin, 24hr 28.3 % Normal [facility] Comment on above: Performed By: #### U 24MPA, UEPG24 ####[facility], [place] [phone] Gamma Globulin, 24hr 12.3 % Normal [facility] Comment on above: Performed By: #### U 24MPA, UEPG24 ####[facility]ClevelandH[place], [place] [phone] Interpretation, 24hr An M protein is identified on protein electrophoresis. Normal [facility] Comment on above: Result Comment: See separate immunofixation report for characterization of the M protein. Performed By: #### U 24MPA, UEPG24 ####[place] [address] [place], [place] [phone] M Bruce Quant/24 Hr 0.04 gm/24 Hr High 0.00 [facility] Comment on above: Performed By: #### U 24MPA, UEPG24 ####[address] [phone] Protein Ur Conc (UEPG24) 10 mg/dL Normal 0-20 [facility] Comment on above: Performed By: #### U 24MPA, UEPG24 ####[address] [phone] Protein Urine 24hr (UEPG24) 0.24 gm/24 Hr High <0.16 [facility] Comment on above: Performed By: #### U 24MPA, UEPG24 ####[address] [phone] Staff Review, 24hr Reviewed by Sirisha Wolfe MD, PhD. ([id number]) Normal [facility] Comment on above: Performed By: #### U 24MPA, UEPG24 ####[place] [address] [place], [place] [phone] B2 Microglobulinon 2 B2 Microglobulin 3.2 mg/L High <3.1 [facility] Comment on above: Performed By: #### B 2M, HREMOP, STREV, SERMPA, SEPG ####[facility] [place], [place] [phone] CNOVSPon 05-24-2021 CNOVSP Visit (SP) Office (HEMAWS) SHELBI GARCIA ([id number]) 1955 M Date Time Provider Department 05/24/21 [...] PMH significant for type 2 diabetes, CAD (DC x3; each treated with PCI/stent--5 stents altogether), atrial fibrillation, CKD, RA and sensory neuropathy. Patient was referred to a glass mechanic for joint pain and elevated inflammatory markers. [...] No jaundice or rash. No petechiae. 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 No focal motor [...] but righ (more content not included)... Normal [facility] Comp Metabolic Panelon 05-24 Albumin [Mass/Vol] 4.6 g/dL Normal 3.9-4.9 [facility] ALP [Catalytic activity/Vol] 89 U/L Normal 38-113 [facility] ALT [Catalytic activity/Vol] 20 U/L Normal 10-54 [facility] Anion gap [Moles/Vol] 10 mmol/L Normal 9-18 [facility] AST [Catalytic activity/Vol] 16 U/L Normal 14-40 [facility] Bilirubin [Mass/Vol] 0.6 mg/dL Normal 0.2-1.3 [facility] Calcium [Mass/Vol] 9.2 mg/dL Normal 8.5-10.2 [facility] Chloride [Moles/Vol] 104 mmol/L Normal 97-105 [facility] CO2 [Moles/Vol] 26 mmol/L Normal 22-30 [facility] Creatinine [Mass/Vol] 1.34 mg/dL High 0.73-1.22 [facility] eGFR- Amer. >60 Normal [facility] eGFR-All Other Races [address] [facility] Comment on above: Result Comment: eGFR [...] [email or web address]. Glucose [Mass/Vol] 116 mg/dL High 74-99 [facility] Comment on above: Result Comment: The [place] Diabetes Association (ADA) provides guidance for cutoff [...] Standards of Medical Care in Diabetes 2016, [place] Diabetes Association. Diabetes Care. 2016.39(Suppl 1). Potassium [Moles/Vol] 4.1 mmol/L Normal 3.7-5.1 [facility] Protein [Mass/Vol] 7.5 g/dL Normal 6.3-8.0 [facility] Sodium [Moles/Vol] 140 mmol/L Normal 136-144 [facility] Urea nitrogen [Mass/Vol] 20 mg/dL Normal 9-24 [facility] Hepatitis Remote Panelon HBsAg Negative Normal Negative [facility] Comment on above: Performed By: #### B 2M, HREMOP, STREV, SERMPA, SEPG ####[facility] [place], [place] [phone] Hep B Core Ab,Total Negative Normal Negative [facility] Comment on above: Performed By: #### B 2M, HREMOP, STREV, SERMPA, SEPG ####[facility]CM[address], [place] [phone] Hepatitis C Ab IA Negative Normal Negative [facility] Comment on above: Performed By: #### B 2M, HREMOP, STREV, SERMPA, SEPG ####[facility]CZ[address] [place] [phone] HepB Surface Ab,Qual Negative Normal Negative [facility] Comment on above: Result Comment: NEGA TIVE Performed By: #### B 2M, HREMOP, STREV, SERMPA, SEPG ####[facility]CM[place], [place] [phone] LDon 05-24-2021 LD 203 U/L Normal 135-225 [facility] Comment on above: Result Comment: Hemo [...] 05-24 K/L Ratio, Serum 0.23 Low 0.26-1.65 [facility] Comment on above: Performed By: #### B 2M, HREMOP, STREV, SERMPA, SEPG ####[facility]CM[address], [place] [phone] [place], Free, Serum 14.2 mg/L Normal 3.30-19.40 [facility] Comment on above: Result Comment: Test performed by an immunoturbidimetric assay on [employer] instrument from [facility]. Immunoglobulin free light chain assay results should be interpreted in conjunction with other tests and in correlation with clinical picture. Performed By: #### B 2M, HREMOP, STREV, SERMPA, SEPG ####[place] [address] AveCZach[place] [phone] Lambda, Free, Serum 61.1 mg/L High 5.7-26.3 [facility] Comment on above: Result Comment: Test performed by an immunoturbidimetric assay on [employer] instrument from [facility]. Immunoglobulin free light chain assay results should be interpreted in conjunction with other tests and in correlation with clinical picture. Performed By: #### B 2M, HREMOP, STREV, SERMPA, SEPG ####[address]ach[address] [phone] MPA Interpretation SEE COMMENT Normal [facility] Comment on above: Result Comment: Atyp ical restricted bands are present in the IgA and lambda regions. Consistent with IgA lambda monoclonal gammopathy. Performed By: #### B 2M, HREMOP, STREV, SERMPA, SEPG ####[address] [phone] Result M protein is present. Critically abnormal No M protein is identified. [facility] Comment on above: Performed By: #### B 2M, HREMOP, STREV, SERMPA, SEPG ####[place] [address]83[address] [place] [address] [phone] [facility] Serum IgA 610 mg/dL High 70-400 [facility] Comment on above: Performed By: #### B 2M, HREMOP, STREV, SERMPA, SEPG ####[place] [address]83[address] AveCZach[place] [phone] [facility] Serum IgG 638 mg/dL Low 700-1600 [facility] Comment on above: Performed By: #### B 2M, HREMOP, STREV, SERMPA, SEPG ####[place] [address] AveC[place]ach[place] [phone] MPA Serum IgM 66 mg/dL Normal 40-230 [facility] Comment on above: Performed By: #### B 2M, HREMOP, STREV, SERMPA, SEPG ####[facility] [address]vuivncf[address] AveClevelMichael [place] [phone] Staff Review Reviewed by Dasia Kessler MD ([id number]) Normal [facility] Comment on above: Performed By: #### B 2M, HREMOP, STREV, SERMPA, SEPG ####[facility]ClevelMichael [place] [phone] Path Interp w CBCDIFon 05-24 Abs Baso 0.07 k/uL Normal <0.11 [facility] Comment on above: Performed By: #### B 2M, HREMOP, STREV, SERMPA, SEPG ####[facility]ClevelandJenn[place] [phone] Abs Garfield 0.46 k/uL Normal <0.87 [facility] Comment on above: Performed By: #### B 2M, HREMOP, STREV, SERMPA, SEPG ####[place] [address]83[address] AveClevelMichael [place] [phone] Abs Neut 4.06 k/uL Normal 1.45-7.50 [facility] Comment on above: Performed By: #### B 2M, HREMOP, STREV, SERMPA, SEPG ####[facility]ClevelMichael [place] [phone] Absolute nRBC <0.01 Normal <0.01 [facility] Comment on above: Performed By: #### B 2M, HREMOP, STREV, SERMPA, SEPG ####[place] [address]83[address] AveClevelMichael [place] [phone] Basophils/100 WBC (Bld) 0.8 % Normal C [facility] Comment on above: Performed By: #### B 2M, HREMOP, STREV, SERMPA, SEPG ####[place] [address] AveClevelandJoseph [place] [phone] DTYPE Auto Diff Normal [facility] Comment on above: Performed By: #### B 2M, HREMOP, STREV, SERMPA, SEPG ####[place] [address] [address]ach[address] [place] [phone] Eosinophils (Bld) [#/Vol] 0.28 10*3/uL Normal <0.46 [facility] Comment on above: Performed By: #### B 2M, HREMOP, STREV, SERMPA, SEPG ####[place] [address] [address] [place] [phone] Eosinophils/100 WBC (Bld) 3.3 % Normal [facility] Comment on above: Performed By: #### B 2M, HREMOP, STREV, SERMPA, SEPG ####[place] [address] [place] [phone] Erythrocyte distribution width (RBC) [Ratio] 13.7 % Normal 11.5-15.0 [facility] Comment on above: Performed By: #### B 2M, HREMOP, STREV, SERMPA, SEPG ####[place] [address] [address] [place] [phone] Hematocrit (Bld) [Volume fraction] 46.0 % Normal 39.0-51.0 [facility] Comment on above: Performed By: #### B 2M, HREMOP, STREV, SERMPA, SEPG ####[place] [address] [address] [place] [phone] Hemoglobin (Bld) [Mass/Vol] 14.9 g/dL Normal 13.0-17.0 [facility] Comment on above: Performed By: #### B 2M, HREMOP, STREV, SERMPA, SEPG ####[place] [address] [address] [place] [phone] Lymphocytes (Bld) [#/Vol] 3.51 10*3/uL Normal 1.00-4.00 [facility] Comment on above: Performed By: #### B 2M, HREMOP, STREV, SERMPA, SEPG ####[place] [address] [address] [place] [phone] Lymphocytes/100 WBC (Bld) 41.8 % Normal [facility] Comment on above: Performed By: #### B 2M, HREMOP, STREV, SERMPA, SEPG ####[place] [address] [address] [place] [phone] MCH 32.7 pG Normal 26.0-34.0 [facility] Comment on above: Performed By: #### B 2M, HREMOP, STREV, SERMPA, SEPG ####[place] [address] [address] [place] [phone] MCHC (RBC) [Mass/Vol] 32.4 g/dL Normal 30.5-36.0 [facility] Comment on above: Performed By: #### B 2M, HREMOP, STREV, SERMPA, SEPG ####[place] [address] [address] [place] [phone] MCV (RBC) [Entitic vol] 100.9 fL High 80.0-100.0 [facility] Comment on above: Performed By: #### B 2M, HREMOP, STREV, SERMPA, SEPG ####[place] [address] [address] [place] [phone] Monocytes/100 WBC (Bld) 5.5 % Normal [facility] Comment on above: Performed By: #### B 2M, HREMOP, STREV, SERMPA, SEPG ####[place] [address] [place] [phone] Neutrophils/100 WBC (Bld) 48.6 % Normal [facility] Comment on above: Performed By: #### B 2M, HREMOP, STREV, SERMPA, SEPG ####[facility]CMad[address], [place] [phone] NRBCs 0.0 /100 WBC Normal 0 [facility] Comment on above: Performed By: #### B 2M, HREMOP, STREV, SERMPA, SEPG ####[place] [address] [address] [place] [phone] Pathologist Interp SEE COMMENT Normal [facility] Comment on above: Result Comment: The Pathologist [...] #### B 2M, HREMOP, STREV, SERMPA, SEPG ####[place] [address] [address] [place] [phone] Pathologist: The Pathologist Interpretation on this sample was cancelled because the hematology analyzer did not flag any parameters as requiring manual review. If there is a specific clinical concern for which you would like a pathologist to review the blood smear, please call Lab Client Services within 28 days. Normal [facility] Comment on above: Result Comment: Acco unt Credited Performed By: #### B 2M, HREMOP, STREV, SERMPA, SEPG ####[place] [address] [place] [phone] Platelet mean volume (Bld) [Entitic vol] 10.7 fL Normal 9.0-12.7 [facility] Comment on above: Performed By: #### B 2M, HREMOP, STREV, SERMPA, SEPG ####[facility] [place] [phone] Platelets (Bld) [#/Vol] 229 10*3/uL Normal 150-400 [facility] Comment on above: Performed By: #### B 2M, HREMOP, STREV, SERMPA, SEPG ####[facility]ClevelRiverdale, [place] [phone] RBC (Bld) [#/Vol] 4.56 10*6/uL Normal 4.20-6.00 [facility] Comment on above: Performed By: #### B 2M, HREMOP, STREV, SERMPA, SEPG ####[place] [address]Clevel[address] [place] [phone] WBC (Bld) [#/Vol] 8.40 10*3/uL Normal 3.70-11.00 [facility] Comment on above: Performed By: #### B 2M, HREMOP, STREV, SERMPA, SEPG ####[place] [address] [address] [place] [phone] Protein Electrophor.on 05-24 Albumin [Mass/Vol] 4.14 g/dL Normal 3.37-4.23 [facility] Comment on above: Performed By: #### B 2M, HREMOP, STREV, SERMPA, SEPG ####[place] [address]level[address] [place] [phone] Alpha 1 Globulin 0.26 gm/dL Normal 0.18-0.31 [facility] Comment on above: Performed By: #### B 2M, HREMOP, STREV, SERMPA, SEPG ####[place] [address]Clevel[address] [place] [phone] Alpha 2 Globulin 0.72 gm/dL Normal 0.52-0.97 [facility] Comment on above: Performed By: #### B 2M, HREMOP, STREV, SERMPA, SEPG ####[place] [phone] AveClevelMichael [place] [phone] Beta Globulin 0.97 gm/dL Normal 0.84-1.36 [facility] Comment on above: Performed By: #### B 2M, HREMOP, STREV, SERMPA, SEPG ####[facility]ClevelRiverdale, [place] [phone] Gamma Globulin 1.11 gm/dL Normal 0.70-1.44 [facility] Comment on above: Performed By: #### B 2M, HREMOP, STREV, SERMPA, SEPG ####[facility] AveClevelandHydaburg, [place] [phone] Interpretation SEE COMMENT Normal [facility] Comment on above: Result Comment: An M protein is identified on protein electrophoresis. See separate immunofixation report for characterization of the M protein. Performed By: #### B 2M, HREMOP, STREV, SERMPA, SEPG ####[place] [address]CMad[address], [place] [phone] M Protein Location Gamma fraction Normal [facility] Comment on above: Performed By: #### B 2M, HREMOP, STREV, SERMPA, SEPG ####[place] [address]ClevelR[place], [place] [phone] M Bruce Concentratn 0.44 gm/dL High 0.00 [facility] Comment on above: Performed By: #### B 2M, HREMOP, STREV, SERMPA, SEPG ####[place] [phone] AveCMadison, [place] [phone] Protein [Mass/Vol] 7.2 g/dL Normal 6.3-8.0 [facility] Comment on above: Performed By: #### B 2M, HREMOP, STREV, SERMPA, SEPG ####[facility]Cleveland[place], [place] [phone] SPE Staff Review Reviewed by Dasia Kessler MD ([id number]) [facility] Comment on above: Performed By: #### B 2M, HREMOP, STREV, SERMPA, SEPG ####[facility]ClevelR[place], [place] [phone] OCT MACULA CIRRUS OU (BOTH E YES) [facility] Vital Signs Date Time Vital Sign Value Performing Clinician Faci lity 12-30-2024 07:14-0400 Body mass index (BMI) [Ratio] 41.6 kg/m2 Dr. Fatoumata Red MD Work Phone: [facility] 12-30-2024 07:14-0400 Body weight 120.[address] Fatoumata Red MD Work Phone: [facility] 12-30-2024 07:14-0400 Diastolic blood pressure 82 mm[Hg] Dr. Fatoumata Red MD Work Phone: [facility] 12-30-2024 07:14-0400 Heart rate 64 /min Dr. Fatoumata Red MD Work Phone: [facility] 12-30-2024 07:14-0400 Respiratory rate 18 /min Dr. Fatoumata Red MD Work Phone: [facility] 12-30-2024 07:14-0400 SaO2% (BldA) [Mass fraction] 96 % Dr. Fatoumata Red MD Work Phone: [facility] 12-30-2024 07:14-0400 Systolic blood pressure 154 mm[Hg] Dr. Fatoumata Red MD Work Phone: [facility] 03-14-2023 08:08-0500 Body height 170.[address] Fatoumata Red Work Phone: [facility] 03-14-2023 08:08-0500 Body weight 111.[address] Fatoumata Red Work Phone: [facility] 03-13-2023 11:44-0500 Body mass index (BMI) [Ratio] 38.5 kg/m2 Dr. Fatoumata Red Work Phone: [facility] 01-19-2023 11:05-0400 Body height 170.[address] Fatoumata Red Work Phone: [facility] 01-19-2023 11:05-0400 Body mass index (BMI) [Ratio] 38.5 kg/m2 Dr. Fatoumata Red Work Phone: [facility] 01-19-2023 11:05-0400 Body weight 111.[address] Fatoumata Red Work Phone: [facility] 01-19-2023 11:05-0400 Diastolic blood pressure 74 mm[Hg] Dr. Fatoumata Red Work Phone: [facility] 01-19-2023 11:05-0400 Heart rate 58 /min Dr. Fatoumata eRd Work Phone: [facility] 01-19-2023 11:05-0400 Respiratory rate 18 /min Dr. Fatoumata Red Work Phone: [facility] 01-19-2023 11:05-0400 SaO2% (BldA) [Mass fraction] 95 % Dr. Fatoumata Red Work Phone: [facility] 01-19-2023 11:05-0400 Systolic blood pressure 129 mm[Hg] Dr. Fatoumata Red Work Phone: [facility] 07-14-2021 09:15-0400 Body temperature 97.2 [degF] Jp Molinai DO Work Phone: [facility] 07-14-2021 09:15-0400 Body weight 117.48 kg Jp Masci DO Work Phone: [facility] 07-14-2021 09:15-0400 Diastolic blood pressure 61 mm[Hg] Jp Molinai DO Work Phone: [facility] 07-14-2021 09:15-0400 Heart rate 65 /min Jp Molinai DO Work Phone: [facility] 07-14-2021 09:15-0400 SaO2% (BldA) [Mass fraction] 96 % Jp Denis DO Work Phone: [facility] 07-14-2021 09:15-0400 Systolic blood pressure 125 mm[Hg] Jp Denis DO Work Phone: [facility] 06-23-2021 10:49-0400 Diastolic blood pressure 51 mm[Hg] [facility] Work Phone: 06-23-2021 10:49-0400 Heart rate 59 /min [facility] Work Phone: 06-23-2021 10:49-0400 Respiratory rate 18 /min [facility] Work Phone: 06-23-2021 10:49-0400 SaO2% (BldA) [Mass fraction] 97 % [facility] Work Phone: 06-23-2021 10:49-0400 Systolic blood pressure 124 mm[Hg] [facility] Work Phone: 06-23-2021 08:07-0400 Body height 170.18 cm [facility] Work Phone: 06-23-2021 08:07-0400 Body mass index (BMI) [Ratio] 41.6 kg/m2 [facility] Work Phone: 06-23-2021 08:07-0400 Body temperature 98 [degF] [facility] Work Phone: 06-23-2021 08:07-0400 Body weight 120.65 kg [facility] Work Phone: Encounters Encounter Date Encounter Type Care Provider Facility Start: 02-05-2025 ambulatory [facility] Facility: [facility] Start: 02-03-2025 ambulatory [facility] Facility: [facility] Start: 01-30-2025 ambulatory [facility] Facility: [facility] Start: 01-24-2025 ambulatory [facility] Facility: [facility] Start: 01-21-2025 ambulatory Monse North [employer]EL[employer] Facili ty:[facility] Start: 01-17-2025 ambulatory Delon Alfonso Facility:[facility] Start: 12-30-2024 End: 12-30-2024 Patient encounter procedure Monse [place] [employer] DEVELOPER-C -[facility] Work Phone: Start: 12-30-2024 End: 12-30-[address] Fatoumata Red MD Work Phone: -[facility] Start: 12-30-2024 End: 12-30-2024 ambulatory Monse [place] [employer]PLICATION DEVELOPER Facility:[facility] Start: 12-23-2024 ambulatory Delon Alfonso Facility:[facility] Start: 12-23-2024 Non-patient / Non-visit Dr. Delon pandey MD -[facility] Start: 12-23-2024 End: 12-23-[address] Fatoumata Red MD Work Phone: -Cardiovascular Services Start: 12-23-2024 End: 12-23-[address] Fatoumata Red MD -Cardiovascular Services Work Phone: Start: 12-23-2024 End: 12-23-2024 ambulatory Fatoumata Red Facility:[facility] Start: 11-28-2024 End: 11-28-[address] Fatoumata Red MD Work Phone: -Laboratory Start: 11-28-2024 End: 11-28-[address] Fatoumata Red MD -Laboratory Work Phone: Start: 11-28-2024 End: 11-28-2024 ambulatory Fatoumata Red Facility:[facility] Start: 06-19-2024 End: 06-19-2024 ambulatory Warren Ireland Facility:[facility] Start: 03-14-2023 End: 03-14-2023 Admission to same day surgery center Dr. 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 Fatoumata Red Work Phone: [facility] Work Phone: Start: 02-20-2023 Non-patient / Non-visit Dr. Dario Red Work Phone: [facility] Work Phone: Start: 02-19-2023 Non-patient / Non-visit Dr. Dario Red Work Phone: [facility] Start: 02-15-2023 End: 02-15-[address] Fatoumata Red Work Phone: [facility] Work Phone: Start: 02-15-2023 End: 02-15-[address] [facility] Start: 02-15-2023 Non-patient / Non-visit Dr. Dario Red Work Phone: [facility] Start: 02-01-2023 End: 02-01-[address] Fatoumata Red Work Phone: [facility] Work Phone: Start: 02-01-2023 End: 02-01-[address] Fatoumata Red Work Phone: [facility]-Laboratory Work Phone: Start: 01-27-2023 End: 01-27-[address] Fatoumata Red Work Phone: [facility] Work Phone: Start: 01-19-2023 End: 01-19-[address] Fatoumata Red Work Phone: [facility] Work Phone: Start: 01-13-2023 End: 01-13-2023 ambulatory [facility] Work Phone: Start: 01-13-2023 End: 01-13-2023 Patient encounter procedure [facility]-Laboratory Work Phone: Start: 09-18-2021 End: 09-18-2021 Patient encounter procedure Elio Bach MD Work Phone: Ophthalmology Comment on above: Type 2 diabetes bety itus without retinopathy (HCC) (Primary Dx); Pseudophakia of both eyes; Hx of LASIK; Essential hypertension; Hypercholesteremia Start: 09-10-2021 End: 09-10-2021 Patient encounter procedure [facility]-Laboratory, Phy Office 3rd Flr Start: 09-02-2021 End: 09-02-2021 Patient encounter procedure [facility]-Laboratory, Specimen Start: 09-01-2021 Telephone encounter Jp cannon DO Work Phone: Hematology/Oncology Comment on above: Information Start: 07-19-2021 Telephone encounter Jp cannon DO Work Phone: Hematology/Oncology Comment on above: Results Start: 07-15-2021 End: 07-15-2021 Patient encounter procedure [facility]-Laboratory Start: 07-14-2021 Telephone encounter Jp cannon DO Work Phone: Hematology/Oncology Comment on above: Orders Results Start: 07-14-2021 End: 07-14-2021 ambulatory Jp Denis DO Work Phone: Hematology/Oncology Comment on above: Smoldering myeloma ( Primary Dx) Start: 07-14-2021 End: 07-14-2021 Patient encounter procedure Jp Denis DO Work Phone: [facility] Start: 06-23-2021 End: 06-23-2021 Patient encounter procedure [facility]-Cat Scan, [facility] Start: 06-10-2021 End: 06-10-2021 Subsequent hospital visit by physician [facility] ([facility]) Work Phone: [...] Author Start: 07-14-2024 DIABETES SCREEN DIABETES SCREEN [facility] Start: 07-14-2024 Diabetes Screening Diabetes Screening [facility] Start: 03-14-2023 Patient discharge [facility] Start: 12-09-2022 Covid-19 Vaccine ( season) Covid-19 Vaccine () [facility] Start: 12-09-2022 Influenza vaccination Influenza Vaccine (#1) [facility] Start: 07-14-2022 Adult depression screening assessment DEPRESSION SCREENING [facility] Start: 04-10-2022 Advance Directive Discussion Advance Directive Discussion [facility] Start: 04-10-2022 Depression Assessment Depression Assessment [facility] Start: 12-09-2021 Influenza vaccination INFLUENZA (Season Ended) [facility] Start: 06-23-2021 Diagnostic bone marrow biopsies & aspirations DX BONE MARROW BX & ASPIR [facility] Work Phone: Start: 05-13-2021 COVID-19 VACCINE (3 - Booster for Gustabo series) COVID-19 VACCINE (3 - Booster for Gustabo series) [facility] Start: 04-10-2021 ADVANCE DIRECTIVE DISCUSSION ADVANCE DIRECTIVE DISCUSSION [facility] Start: 2018 PNEUMOVAX AGE 65 AND OVER WITH 5YR LOOKBACK (#1) PNEUMOVAX AGE 65 AND OVER WITH 5YR LOOKBACK (#1) [facility] Start: 08-06-2016 Colonoscopy COLONOSCOPY [facility] Start: 08-06-2016 COLORECTAL CANCER SCREENING COLORECTAL CANCER SCREENING [facility] Start: 05-21-2014 Pneumococcal Vaccine: 65+ (2 - PCV) Pneumococcal Vaccine: 65+ (2 - PCV) [facility] Start: 2013 RSV Vaccine (1 - 1-dose 60+ series) RSV Vaccine (1 - 1-dose 60+ series) [facility] Start: 09-27-2009 Lipid 1996 panel - Serum or Plasma Lipid Screening [facility] Start: 09-27-2009 LIPID SCREEN LIPID SCREEN [facility] Start: 07-13-2009 PROSTATE CANCER SCREENING DISCUSSION PROSTATE CANCER SCREENING DISCUSSION [facility] Start: 2008 Influenza vaccination LUNG CANCER SCREENING [facility] Start: 2003 Influenza vaccination LUNG CANCER SCREENING [facility] Start: 2003 SHINGRIX VACCINE (1 of 2) SHINGRIX VACCINE (1 of 2) [facility] Start: 1998 COLOGUARD (FIT-DNA) COLOGUARD (FIT-DNA) [facility] Start: [address] COLONOGRAPHY [facility] Start: 1998 FECAL OCCULT BLOOD FECAL OCCULT BLOOD [facility] Start: 1998 SIGMOIDOSCOPY SIGMOIDOSCOPY [facility] Start: 1972 SHINGRIX VACCINE (1 of 2) SHINGRIX VACCINE (1 of 2) [facility] Start: 1972 Urine microalbumin profile [facility] Start: 1959 PNEUMOCOCCAL: 65+ (1 - PCV) PNEUMOCOCCAL: 65+ (1 - PCV) [facility] Start: 1953 ABDOMINAL AORTIC ANEURYSM SCREENING ABDOMINAL AORTIC ANEURYSM SCREENING [facility] CBC W Auto Different ial panel - Blood CBC + DIFF Lab STAT Multiple myeloma not having achieved remission (HCC) 07/14/2021 9:03 AM EDT [facility] Work Phone: CBC W Ordered Manual Differential panel - Blood PATHOLOGIST INTERPRETATION WITH CBC AND DIFF Lab Routine Smoldering myeloma 07/15/2021 10:27 AM EDT [facility] Work Phone: NM Heart Views W str ess and W radionuclide IV [facility] Patient Education Bone Marrow As piration and Biopsy Procedural Sedation Bone Marrow Biopsy [facility] Work Phone: Patient referral [facility] Work Phone: [facility] Immunizations Immunization Date Immunization Notes Care Provider Fa cility 05-21-2013 Pneumococcal Vaccine [facility] Work Phone: 05-21-2013 pneumococcal vaccine , unspecified formulation [facility] 12-09-2012 Influenza virus vaccine W [facility] 12-09-2012 influenza virus vaccine, unspecified formulation Ct ([facility]) Work Phone: [facility] Payers Date Payer Category Payer Unknown [id number] 2024 Self-pay [id number] 2024 Private Health Insurance [id number] 2021 Unknown ANTHEM BLUE CROS S AND BLUE SHIELD ANTHEM MEDIBLUE O [id number] 2021-Present [phone] [address] [place] [address] [facility] [id number] 2021 Unknown ANTHEM BLUE CROS S AND BLUE SHIELD ANTHEM MEDIBLUE HMO [id number] 2021-Present [phone] [address] [place] [address] HMO [id number] 2013 Unknown [id number] Medicare [id number] Private Health Insurance [facility] [id number] Unknown [id number] Unknown [id number] Unknown [id number] 62 Unknown [id number] 62 Unknown [id number] 62 Unknown [id number] 62 Unknown [id number] 62 Unknown [id number] 62 Unknown [id number] 62 Unknown [id number] 62 Unknown [id number] 62 Unknown [id number] 62 Unknown [id number] 62 Unknown [id number] 62 Unknown [id number] 62 Social History Date Type Detail Facility Start: 06-23-2021 End: 03-14-2023 Tobacco smoking status WAIS Unknown if ever smoked [facility] Start: 12-26-2014 None [facility] Start: 12-26-2014 Spouse/ Signif icant Other [facility] Start: 12-26-2014 Non-smoker [facility] Start: 1955 Sex Assigned At Male W [facility] Start: 07-17-2013 End: 08-03-2023 Tobacco smoking status WAIS Ex-smoker [facility] Work Phone: End: 04-10-2009 History of tobacco use Current smoker [facility] Work Phone: End: 04-10-2009 History of tobacco use Cigarette Smoker [facility] Work Phone: Start: 07-17-2013 End: 05-24-2021 Cigarettes smoked current (pack per day) - Reported 2 [facility] Start: 07-17-2013 End: 05-24-2021 Tobacco use and exposure Smokeless tobacco [facility]-user [facility] [employer] Work Phone: Start: 05-24-2021 End: 07-14-2021 Alcohol intake Current non-drinker of alcohol (finding) [facility] Start: 1955 Sex Assigned At Not on file [facility] Start: 05-01-2021 End: 09-18-2021 Exposure to SARS-CoV-2 (event) Not sure [facility] Start: 05-24-2021 Tobacco use panel [facility] Medical Equipment Procedure Code Equipment Code Equipment Origin al Text Equipment Identifier Dates ([id number]) Knee arthroplast y wedge ()[id number] FDA Start: 08-30-2023 Orthopaedic ceme nt, antimicrobial ()[id number] FDA Start: 08-30-2023 Tibial insert ()[id number] [id number] FDA Start: 08-30-2023 Knee arthroplast y wedge ()[id number] [id number] FDA Start: 08-30-2023 ([id number]) Knee arthroplast y wedge ()[id number] [id number] FDA Start: 08-30-2023 ([id number]) Uncoated knee ti jf prosthesis, metallic ()[id number] [id number] FDA Start: 08-30-2023 Uncoated knee fe mur prosthesis, metallic ()[id number] [id number] FDA Start: 08-30-2023 ([id number]) Knee femur stem prosthesis ()[id number] FDA Start: 08-30-2023 ([id number]) Knee femur stem prosthesis ()[id number] [id number] FDA Start: 08-30-2023 ([id number]) Polymer orthopae dic cement restrictor, non-bioabsorbable, sterile ()[id number]( 17)[id number])[id number] FDA Start: 08-30-2023 ([id number]) Polymer orthopae dic cement restrictor, non-bioabsorbable, sterile ()[id number] [id number])[id number] [id number] FDA Start: 08-30-2023 Mental Status Date Assessment Result Facility 06-23-2021 Cognitive function Voice/Name [facility] Work Phone: 06-23-2021 Cognitive function Level Of Cons ciousness Appropriate;Follows Commands;Drowsy;Responds to vocal stimuli [facility] Work Phone: Clinical Notes 02-08-2011 to 12-30-2024 Note Date & Type Note Facility 12-30-2024 Evaluation note Diagnosis Onset Date Resolution DEL VALLE (dyspnea on exertion) acute December 30, 2024 1:49pm Fatigue acute December 1:49pm History of pulmonary embolism acute December 30, 2024 1:49pm Atherosclerotic heart disease of [place] coronary artery without angina pectoris chronic December 30, 2024 1:49pm Benign essential HTN chronic Dec 1:49pm HLD (hyperlipidemia) chronic Dec 1:49pm [facility] Work Phone: 1(259) 137-688809-22-2025 Progress [facility] [address] [place], [place] [address] OFFICE VISIT Date of Service: 12/30/24 MR#: [id number] Acct: [id number] Name: SHELBI GARCIA Rep #: [id number] : 1955 Provider: CHUY North Age/Sex: 69/M [...] 96 Intake Visit Reasons: 6 M FU Searchlight Operator Required: No Is patient in pain?: No [...] no changes in medications PFSH Medical History (Reviewed 12/30/24 @ 15:19 by Monse North JAVASCRIPT APPLICATION DEVELOPER, JAVASCRIPT APPLICATION DEVELOPER-C) Wears glasses Anxiety Depression Insulin dependent diabetes [...] coronary artery (~02/09/11) Atherosclerotic heart disease of [place] coronary artery without angina pectoris Abnormal laboratory test Medical management DVT (deep venous thrombosis) Tobacco dependence in remission HLD (hyperlipidemia) CAD (coronary artery disease) Benign essential HTN Surgical History (Reviewed 12/30/24 @ 15:19 by Monse North JAVASCRIPT APPLICATION DEVELOPER, JAVASCRIPT APPLICATION DEVELOPER-C) Hx of arthroscopic knee surgery Hx of tonsillectomy IVC filter removal History of left heart catheterization (LHC) (~03/14/23) Hx of LASIK History of bilateral cataract extraction 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 transplanted heart: [place] heart Qualified Code(s): I25.10 - Atherosclerotic heart disease of [place] coronary artery without angina pectoris Plan: Patient [...] updated, as necessary. Follow Up: 6 Months (JAVASCRIPT APPLICATION DEVELOPER/PA) Coding Level of Care Code Off vis,est,level 4 Diagnoses Atherosclerosis of [place] coronary artery of [place] heart without angina pectoris I25.10 [place] vs. transplanted heart: [place] heart History of pulmonary embolism Z86.711 Hyperlipidemia, unspecified hyperlipidemia type E78.5 Hyperlipidemia type: unspecified Benign essential HTN I10 Fatigue R53.83 DEL VALLE (dyspnea on exertion) R06.09 Coding Level of Care Code Off vis,est,level 4 Diagnoses Atherosclerosis of [place] coronary artery of [place] heart without angina pectoris I25.10 [place] vs. transplanted heart: [place] heart History of pulmonary embolism Z86.711 Hyperlipidemia, unspecified hyperlipidemia type E78.5 Hyperlipidemia type: unspecified Benign essential HTN I10 Fatigue R53.83 DEL VALLE (dyspnea on exertion) R06.09 Clinical Quality Measures Falls Risk Screening/Assistive Devices Have you fallen in the past year?: No 12/30/24 1520 JAVASCRIPT APPLICATION DEVELOPER JAVASCRIPT APPLICATION DEVELOPER-C> Date _ Monse VERA Cosigner Signature: Date (if applicable) CC: Dr. Fatoumata Red MD ~ [id number] Progress note Author Monse North [facility] Note Date/Time December 30, 2024 2:30pm [facility] [address] [place], [place] [address]e. [address] [place] [address] OFFICE VISIT Date of Service: 12/30/24 MR#: [id number] Acct: [id number] Name: RADHASHELBI BEV Rep #: [id number] : 1955 Provider: CHUY North Age/Sex: 69/M Location: [facility] Status: Signed HPI HPI History of Present [...] 96 Intake Visit Reasons: 6 M FU Searchlight Operator Required: No Is patient in pain?: No [...] no changes in medications PFSH Medical History (Reviewed 12/30/24 @ 15:19 by Monse North JAVASCRIPT APPLICATION DEVELOPER, JAVASCRIPT APPLICATION DEVELOPER-C) Wears glasses Anxiety Depression Insulin dependent diabetes [...] coronary artery (~02/09/11) Atherosclerotic heart disease of [place] coronary artery without angina pectoris Abnormal laboratory test Medical management DVT (deep venous thrombosis) Tobacco dependence in remission HLD (hyperlipidemia) CAD (coronary artery disease) Benign essential HTN Surgical History (Reviewed 12/30/24 @ 15:19 by Monse North JAVASCRIPT APPLICATION DEVELOPER, JAVASCRIPT APPLICATION DEVELOPER-C) Hx of arthroscopic knee surgery Hx of tonsillectomy IVC filter removal History of left heart catheterization (LHC) (~03/14/23) Hx of LASIK History of bilateral cataract extraction History of bilateral knee replacement (08/30/23) Presence of coronary angioplasty implant and graft (~02/09/11) Family History (Reviewed 12/30/24 @ 15:19 by Monse North JAVASCRIPT APPLICATION DEVELOPER, JAVASCRIPT APPLICATION DEVELOPER-C) Other CVA (cerebral vascular accident) Heart disease Hypertension Myocardial infarction Social History (Reviewed 12/30/24 @ 15:19 by Monse North JAVASCRIPT APPLICATION DEVELOPER, JAVASCRIPT APPLICATION DEVELOPER-C) Smoking Status: Former smoker how long ago [...] and Plan (1) Atherosclerotic heart disease of [place] coronary artery without angina pectoris: Status: Chronic Qualifiers: [place] vs. transplanted heart: [place] heart Qualified Code(s): I25.10 -Atherosclerotic heart disease of [place] coronary artery without angina pectoris Plan: Patient [...] updated, as necessary. Follow Up: 6 Months (JAVASCRIPT APPLICATION DEVELOPER/PA) Coding Level of Care Code Off vis,est,level 4 Diagnoses Atherosclerosis of [place] coronary artery of [place] heart without angina pectoris I25.10 [place] vs. transplanted heart: [place] heart History of pulmonary embolism Z86.711 Hyperlipidemia, unspecified hyperlipidemia type E78.5 Hyperlipidemia type: unspecified Benign essential HTN I10 Fatigue R53.83 DEL VALLE (dyspnea on exertion) R06.09 Coding Level of Care Code Off vis,est,level 4 Diagnoses Atherosclerosis of [place] coronary artery of [place] heart without angina pectoris I25.10 [place] vs. transplanted heart: [place] heart History of pulmonary embolism Z86.711 Hyperlipidemia, unspecified hyperlipidemia type E78.5 Hyperlipidemia type: unspecified Benign essential HTN I10 Fatigue R53.83 [place] (dyspnea on exertion) R06.09 Clinical Quality Measures Falls Risk Screening/Assistive Devices Have you fallen in the past year?: No 12/30/24 1520 <Electronically signed by Monse North JAVASCRIPT APPLICATION DEVELOPER JAVASCRIPT APPLICATION DEVELOPER-C> Date _ Monse North JAVASCRIPT APPLICATION DEVELOPER JAVASCRIPT APPLICATION DEVELOPER-C Cosigner Signature: Date (if applicable) CC: Dr. Fatoumata Red MD ~ [facility] Work Phone: [phone]) [phone] NoteHNO ID: [id number] Author: Elio Bach MD Service: ? Author [...] questions about the findings, diagnosis, and treatment options.[facility]06-11-2022 Instructions* Patient Instructions * Elio Bach MD - 09/18/2021 9:06 AM EDT Start: Systane Complete solution instill 1 drop 3 times daily Both Eyes. Recommended patient see Dr. Sue Wilks for refraction and glasses. If you have any questions please contact our office at [phone]. After office hours or on the weekend, please call Dr. Bach on his cell phone at [phone]. documented [facility] encounter[facility] History of Present illness Narrative* Elio Bach [...] diagnosis, and treatment options. documented in this encounter[facility]05-25-2022 Miscellaneous Notes* Telephone Encounter - Nancy Quezada LPN - 09/01/2021 10:29 AM EDT Last OV notes faxed as directed. Nancy Quezada LPN * Telephone Encounter - Sue Hannon - 09/01/2021 9:[address] Soler's office at [facility] called requesting the last office note from pts last visit with Dr. Denis on07/14/21. This was missing from the original fax they received. documented in this encounter[facility]04-[facility]-2022 Miscellaneous Notes* Telephone Encounter - Ronel Rosen [...] lab work to Dr. Dasia Helton his glass mechanic at the [facility]. Jp Denis DO documented in this encounter[facility]04-[facility]-2022 Miscellaneous Notes* Telephone Encounter - Nancy Quezada [...] Monday. Jp Denis DO documented in this encounterSelect [facility]04-06-2022 NoteHNO ID: [id number] Author: Jp Denis DO Service: ? Author Type: Physician Type: Progress Notes Filed: 07/14/2021 9:42 AM Note Text: Oncologic problem(s): 1) IgA lambda smoldering myeloma. HPI: The patient is a 66 yo male with a PMH significant for type 2 diabetes, CAD (DC x3-most recent 2010; each treated with PCI/stent--5 stents total--most recent 2010), atrial fibrillation, CKD, RA, DVT (IVC) and sensory neuropathy. Patient was referred to a glass mechanic for joint pain and elevated inflammatory markers. [...] endorsed he got in touch with his vet assistant office and was advised he could stop [...] No jaundice or rash. No petechiae. 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 No focal motor [...] Abs Lymph 1.00 - 4.00 k/uL 3.51 Garfield% % 5.5 Abs [place]field <0.87 k/uL 0.46 Eosin% % 3.3 Abs [...] 1.3 mg/dL 0.6 Alkal (more content not included)...[facility]04-06-2022 History of Present illness Narrative* Jp Jake Denis, DO - 07/14/2021 9:10 AM EDT Oncologic problem(s): 1) IgA lambda smoldering myeloma. HPI: The patient is a 66 yo male with a PMH significant for type 2 diabetes, CAD (DC x3-most [id number]; each treated with PCI/stent--5 stents total--most recent 2010), atrial fibrillation, CKD, RA,DVT (IVC) and sensory neuropathy. Patient was referred to a glass mechanic for joint pain and elevated inflammatory markers. [...] endorsed he got in touch with his vet assistant office and was advised he could stop [...] No jaundice or rash. No petechiae. 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 No focal motor [...] Abs Lymph 1.00 - 4.00 k/uL 3.51 Garfield% % 5.5 Abs [place]field <0.87 k/uL 0.46 Eosin% % 3.3 Abs [...] Staff Review Reviewed by Dasia Kessler MD ([id number]) MPA IgG, Serum 700 - 1,600 mg/dL 638 (L) MPA IgA, Serum 70 - 400 mg/dL 610 (H) MPA IgM, Serum 40 - 230 mg/dL 66 [place] Free, Serum 3.30 - 19.40 mg/L 14.2 Lambda Free, Serum 5.7 - 26.3 mg/L 61.1 (H) K/L Ratio, Serum 0.26 - 1.65 0.23 (L) MPA Result No M protein is identified. M protein is present. (A) Interpretation (MPA) SEE COMMENT Staff Review ([facility]) Reviewed by Dasia Kessler MD ([id number]) Component Latest Ref Rng & Units 05/30/2021 [...] (UEPG24) Reviewed by Sirisha Wolfe MD, PhD. ([id number]) Result (UMPA) No M protein is identified. M protein is present. (A) Interpretation (UMPA) SEE COMMENT Staff Review (UMPA) Reviewed by Sirisha Wolfe MD, PhD. ([id number]) IMAGING: Whole-body CT 06/10/2021: RESULT: Please note [...] Mild-moderate atherosclerotic calcifications of the imaged aorta. Extrusion Process Operator (topogram) images: No additional findings. ASSESSMENT/PLAN: (D47.2) [...] bone lesions. -Bone marrow biopsy performed at [facility] demonstrates 11% plasma cells. -By definition, he [...] biopsy but second opinion regarding this from compactor driver is needed. Plan: -Referral to Dr. Flor [...] care. Jp Denis DO documented in this encounterSelect [facility]04-06-2022 Miscellaneous Notes* Telephone Encounter - Jp Denis DO - 07/14/2021 8:49 AM EDT Orders filed. Jp Denis DO documented in this encounterSelect [facility]03-08-2022 NoteHNO ID: [id number] Author: Jp Denis DO Service: ? Author Type: Physician Type: Progress Notes Filed: 06/16/2021 5:32 AM Note Text: Oncologic problem(s): 1) IgA lambda monoclonal gammopathy. HPI: The patient is a 66 yo male with a PMH significant for type 2 diabetes, CAD (DC x3-most recent 2010; each treated with PCI/stent--5 stents total--most recent 2010), atrial fibrillation, CKD, RA, DVT (IVC) and sensory neuropathy. Patient was referred to a glass mechanic for joint pain and elevated inflammatory markers. [...] endorses he got in touch with his vet assistant office and was advised he could stop [...] No jaundice or rash. No petechiae. 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 No focal motor [...] Abs Lymph 1.00 - 4.00 k/uL 3.51 Garfield% % 5.5 Abs [place] <0.87 k/uL 0.46 Eosin% % 3.3 Abs [...] 40 U/L 16 Glu (more content not included)...[facility]03-03-2022 NoteHNO ID: [id number] Author: RT Camila(R) Service: ? Author Type: Senior Analyst Developer Type: Progress Notes Filed: 06/10/2021 2:03 PM [...] BY: RT Camila(R) June 10, 2021 2:[address] [facility]03-03-2022 History of Present illness Narrative* Montez [...] 10, 2021 2:02 PM documented in this encounterSelect [facility]02-14-2022 NoteHNO ID: [id number] Author: Jp Denis, DO Service: ? Author [...] PMH significant for type 2 diabetes, CAD (DC x3; each treated with PCI/stent--5 stents altogether), atrial fibrillation, CKD, RA and sensory neuropathy. Patient was referred to a glass mechanic for joint pain and elevated inflammatory markers. [...] No jaundice or rash. No petechiae. 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 No focal motor [...] he has a chance to see his vet assistant then we can decide on timing of bone marrow biopsy. Plan: Lab work t (more content not included)...[facility]11-01-2011 Evaluation note* Diagnosis Onset Date Resolution Status Benign essential HTN chronic HLD (hyperlipidemia) chronic Presence of stent in coronary artery February, [facility] Work Phone: Evaluation noteNo assessment information available [facility] Work Phone: Evaluation note* Diagnosis Multiple myeloma not having achieved remission (HCC)- Primary Multiple myeloma, without mention of having achieved remission documented in this encounter [facility] note* Diagnosis Smoldering myeloma- Primary Multiple myeloma, without mention of having achieved remission documented in this encounter [facility] note* Diagnosis Smoldering myeloma- Primary Multiple myeloma, without mention of having achieved remission documented in this encounter [facility] note* Diagnosis Type 2 diabetes mellitus without retinopathy (HCC)- Primary Type II or unspecified type diabetes mellitus without mention of complication, not stated as uncontrolled Pseudophakia of both eyes Lens replaced by other means Hx of LASIK Other states following surgery of eye and adnexa Essential hypertension Unspecified essential hypertension Hypercholesteremia Pure hypercholesterolemia documented in this encounter [facility] note* Diagnosis Multiple myeloma not having achieved remission (HCC) Multiple myeloma, without mention of having achieved remission documented in this encounter [facility] note* Diagnosis Onset Date Resolution Status Admit Date DEL VALLE (dyspnea on exertion) acute December 30, 2024 1:49pm Fatigue acute December 1:49pm History of pulmonary embolism acute December 30, 2024 1:49pm Atherosclerotic heart diseas e of [place] coronary artery without angina pectoris chronic Septembe r 2024 1:49pm Benign essential HTN chronic Sept ember 2024 1:49pm HLD (hyperlipidemia) chronic Dec [facility]2024 1:49pm [facility] Work Phone: Reason for referral (narrative)No reason for referral information availableWMercy Health [facility] Work Phone: Chief Complaint and Reason [...] KNEE JOINT, PAIN Atherosclerotic heart disease of [place] coronary a Atherosclerotic heart disease of [place] coronary a Amb Documentation Reason for Visit Benign essential HTN HLD (hyperlipidemia) Presence of stent in coronary artery Chief Complaint 1 Y FU PREV PFM RT ARTIFICIAL KNEE JOINT, PAIN Atherosclerotic heart disease of [place] coronary a Atherosclerotic heart disease of [place] coronary a Atherosclerotic heart disease of [place] coronary a Amb Documentation ABN STRESS, FATIGUE, [...] 2024 1:49pm Atherosclerotic heart diseas e of [place] coronary artery without angina pectoris December 30, [...] Will Yes December 16 3:57pm Power of Parts Counter Salesperson Yes December 16, 2020 3:57pm Advance Directive Response Recorded Date/ Time Advance Directives Yes December 10:37am Living Will Yes December 16 2:57pm Power of Parts Counter Salesperson Yes December 16, 2020 2:57pm Advance Directive Response Recorded Date/ Time Advance Directives on File Yes Decem 2022 8:08am Name of Medical Power of Parts Counter Salesperson ? unsure March 14, 2023 8:08am Advance Directives Yes March 14, 2023 8:08am Living Will Yes March 14 8:08am Power of Parts Counter Salesperson Yes March 14, 2023 8:08am Advance Directive [...] Jp Denis, DO [address] [place] [address] [place] [address] Referral ID Status Reason Start Date Expiration Date V isits Requested Visits Authorized [id number] Closed Auto-Generate d Referral 05/24/2021 06/23/2022 1 [...] or prosecute any alcohol or drug abuse patient.[facility] IncIn the event this information is protected by the Federal Confidentiality of Alcohol and Drug Abuse Patient Records regulations: The Federal rules restrict any use of the information to criminally investigate or prosecute any alcohol or drug abuse patient.[facility] IncIn the event this information is protected by the Federal Confidentiality of Alcohol and Drug Abuse Patient Records regulations: The Federal rules restrict any use of the information to criminally investigate or prosecute any alcohol or drug abuse patient.[facility] IncIn the event this information is protected by the Federal Confidentiality of Alcohol and Drug Abuse Patient Records regulations: The Federal rules restrict any use of the information to criminally investigate or prosecute any alcohol or drug abuse patient.[facility] IncIn the event this information is protected by the Federal Confidentiality of Alcohol and Drug Abuse Patient Records regulations: The Federal rules restrict any use of the information to criminally investigate or prosecute any alcohol or drug abuse patient.[facility] IncIn the event this information is protected by the Federal Confidentiality of Alcohol and Drug Abuse Patient Records regulations: The Federal rules restrict any use of the information to criminally investigate or prosecute any alcohol or drug abuse patient.[facility] IncIn the event this information is protected by the Federal Confidentiality of Alcohol and Drug Abuse Patient Records regulations: The Federal rules restrict any use of the information to criminally investigate or prosecute any alcohol or drug abuse patient.[facility] Reason for Visit (unrecogniz ed section and [...] Jp Denis, DO [address] [place] [address] [place] [address] Referral ID Status Reason Start Date Expiration Date V isits Requested Visits Authorized [id number] Closed Auto-Generate d Referral 05/24/2021 06/23/2022 1 1 Care Teams (unrecognized sec tion and content) Java Jsf Developer Relationship Specialty Start Date End Date Shannonsheryl Fatoumatamateo Torrez [address] [place] [address] PCP - General Family Practice 06/22/21 Dasia Helton Referring Rheumatology 05/17/21 Java Jsf Developer Relationship Specialty Start Date End Date IvettFatoumata samaniego [address] [address] PCP - General Family Practice 06/22/21 Dasia Helton Referring Rheumatology 05/17/21 Java Jsf Developer Relationship Specialty Start Date End Date Shannondanette Fatoumatamateo Torrez [address] [place] [address] PCP - General Family Practice 06/22/21 Dasia Helton Referring Rheumatology 05/17/21 Java Jsf Developer Relationship Specialty Start Date End Date Fatoumata Red [address] [place] [address] PCP - General Family Practice 06/22/21 Dasia [...] Dr. Jp Fried MD Active Monse North JAVASCRIPT APPLICATION DEVELOPER, JAVASCRIPT APPLICATION DEVELOPER-C Attending Provider Active Team Status: Inactive Member Role Status Dates Dr. Fatoumata Red MD Primary Care Provider Active Dr. Warren Olivarez DO Attending Provider Active Team Status: Inactive Member Role Status Dates Dr. Fatoumata Red MD Primary Care Provider Active Dr. Warren Olivarez DO Attending Provider, Referring Provider Active Java Jsf Developer Relationship Specialty Start Date End Date Mary Walton MD PCP - General Internal Medicine 07/05/13 06/21/21 Dasia Helton MD Referring Rheumatology 05/17/21 Team Status: Active Member Role Status Dates Dr. Fatoumata Red MD Primary Care Provider Active Monse North JAVASCRIPT APPLICATION DEVELOPER, JAVASCRIPT APPLICATION DEVELOPER-C Referring Provider, Other Provi jorge Active Dr. Marialuisa Salas MD Attending Provider Activ e Team Status: Active Member Role Status Dates Dr. Fatoumata Red MD Primary Care Provider Active Monse North JAVASCRIPT APPLICATION DEVELOPER, JAVASCRIPT APPLICATION DEVELOPER-C Attending Provider Active Team Status: Inactive Member Role Status Dates Dr. Fatoumata Red MD Primary Care Provider Active Monse North JAVASCRIPT APPLICATION DEVELOPER, JAVASCRIPT APPLICATION DEVELOPER-C Attending Provider, Referring P jamal Active Team Status: Active Member Role Status Dates Dr. Fatoumata Red MD Primary Care Provider Active Dr. Marialuisa Salas MD Attending Provider Activ [place] JAVASCRIPT APPLICATION DEVELOPER, JAVASCRIPT APPLICATION DEVELOPER-C Referring Provider Active Team Status: Inactive Member [...] End: December 30, 2024 Monse North NP, JAVASCRIPT APPLICATION DEVELOPER-C Attending physician Active Start: December 30, 2024 End: December 30, 2024 Team Status: Inactive Member Role/Relationship Status Dates Dr. Fatoumata Red MD Primary care physician Active Start: December 30, 2024 End: December 30, 2024 Monse North NP JAVASCRIPT APPLICATION DEVELOPER-C Attending physician Active Start: December 30, 2024 End: December 30, 2024 Monse North NP, NP-C Referring Provider Active Start: December 30, 2024 End: December 30, 2024 (unrecognized sect ion and content) No Status Records FoundNo Status Records Found INFORMATION SOURCE (unrecogn ized section and content) DATE CREATED AUTHOR 09/18/2021 [facility] DATE CREATED AUTHOR AUTHOR'S ORGANIZ ATION 01/28/2025 [facility] FOR RECORDS PERTAINING TO PATIENTS WHO ARE [...] BE BASED ON THE PRIMARY CLINICAL RECORDS. [employer] provides no warranty or guarantee of the accuracy or completeness of information in this document.
== END | disposition home or self-care (01) ==
PROVIDERS: PCP Family Medicine; Referring Provider Family Medicine; Visit Provider Family Medicine
DX: R06.00 Dyspnea, unspecified (principal)
CPT/HCPCS: 94060; 94726; 94729

== ENCOUNTER → 2025-02-03 | Outpatient (CLI) | payer MEDICARE, SELFPAY ==
[2025-02-03 13:21] VITALS: PULSE 62; PULSE 66; PULSE 69; PULSE 71; PULSE 73; PULSE 74; O2SAT 94; O2SAT 95; O2SAT 96
--- NOTE | 2025-02-07 09:49 | PCM.PSN.6M ---
PSN 6 Minute Walk Test 6 Minute Walk Test 6 Minute Walk Test: 6 Minute Walk Test PSN:6-Minute Walk Test Start: 02/03/25 13:21 Freq: Status: Active Protocol: RESP.6MINW Document 02/03/25 13:21 NICOLAS (Rec: 02/03/25 13:24 EMMYON [id number]) 6 Minute Walk Test Date Performed 02/03/25 Time Performed 13:05 Height 5 ft 7 in Weight: 266 lb Weight in Pounds 266.[address]: Ftaoumata Red Assistive device None used: Pre-test Oxygen Delivery Room Air Method Pulse Ox (%) 96 Pulse Rate (60-100 62 beats/min) Dyspnea Miranda Scale ( 0.5 0-10) Exertion Miranda Scale 6 (6-20) 1st minute Oxygen Delivery Room Air Method Pulse Ox (%) 95 Pulse Rate (60-100 69 beats/min) 2nd minute Oxygen Delivery Room Air Method Pulse Ox (%) 95 Pulse Rate (60-100 71 beats/min) 3rd minute Oxygen Delivery Room Air Method Pulse Ox (%) 94 Pulse Rate (60-100 71 beats/min) 4th minute Oxygen Delivery Room Air Method Pulse Ox (%) 94 Pulse Rate (60-100 73 beats/min) 5th minute Oxygen Delivery Room Air Method Pulse Ox (%) 95 Pulse Rate (60-100 73 beats/min) 6th minute Oxygen Delivery Room Air Method Pulse Ox (%) 94 Pulse Rate (60-100 74 beats/min) Dyspnea Miranda Scale ( 2 0-10) Exertion Miranda Scale 12 (6-20) Post-test Oxygen Delivery Room Air Method Pulse Ox (%) 95 Pulse Rate (60-100 66 beats/min) Full Laps Walked 14 Partial Lap, Number 12 of Tiles Walked Total Distance 838 Walked (ft) Interpretation Interpretation: The patient ambulated 838 feet over the course of 6 minutes beginning on room air without assistive devices. Pretesting oxygen saturation was noted to be 96% on room air. With ambulation, the fercho oxygen saturation was 94%. There was no significant exertional oxygen desaturation. Recommendations Recommendations: There is no indication for the use of supplemental oxygen at this time.
== END | disposition home or self-care (01) ==
LOC: PSN 13:04
PROVIDERS: PCP Family Medicine; Referring Provider Family Medicine; Visit Provider Family Medicine
DX: R06.00 Dyspnea, unspecified (principal)
CPT/HCPCS: 94618

== ENCOUNTER → 2025-02-05 | Outpatient (CLI) | payer MEDICARE, SELFPAY ==
--- NOTE | 2025-02-05 09:31 | ART_ITS ---
Reason For Study VL/Ankle Brachial Index
== END | disposition home or self-care (01) ==
LOC: CVS 09:30
PROVIDERS: PCP Family Medicine; Referring Provider Family Medicine; Visit Provider Family Medicine
DX: I73.9 Peripheral vascular disease, unspecified (principal)
CPT/HCPCS: 93922